=== PATIENT | female | born 1950 | race Caucasian/White ===

== ENCOUNTER → 2016-11-06 | Outpatient (CLI) | payer MEDICARE, OTHER ==
[2016-09-03 08:15] VITALS: BP 163/93
[~2016-11-06] MED LIST: ALPR0.5T PO; AMLO1CAP8 PO; AMLO5TAB2 PO; AMOX500T PO; ARIP5TAB6 PO; ASPI81TA2 PO; ASPI81TA44 PO; ATOR10TA60 PO; ATOR20TA58 PO; BACL20TA PO; CARB200T PO; CETI10TA16 PO; CEVI30CA PO; CIPR250T PO; CIPR250T30 PO; CLON0.25 PO; CLON0.5T PO; CLON1PAT2 TD; CLOP75TA PO; CLOZ100T7 PO; CYCL1DRO OP; DIAZ10TA4 PO; DIAZ5TAB4 PO; DICL100G7 TP; DILT120C97 PO; DILT180C2 PO; DILT180C29 PO; DIVA500T2 PO; DIVA500T9 PO; DOCU-27 PO; DONE5TAB7 PO; DOXE50CA PO; DOXE75CA PO; ESCI20TA PO; FAMO20TA5 PO; FERR325T72 PO; FLUO20CA16 PO; FLUT9.9S NS; FOLI1TAB16 PO; FURO20TA3 PO; GABA-585 PO; GABA-586 PO; GUAI-42 PO; HYDR-2666 PO; HYDR-2762 PO; HYDR-971 PO; LEVO25TA2 PO; LEVO25TA4 PO; LEVO50TA5 PO; LITH300C PO; LORA0.5T PO; LORA2TAB PO; LOSA1TAB17 PO; LOSA50TA6 PO; MELO-150 PO; MEMA10TA PO; METH5TAB12 PO; METO25TA9 PO; MONT10TA6 PO; MULT1TAB52 PO; ONDA-35 PO; ONDA4TAB7 PO; ONDA8TAB12 PO; OXCA300T PO; OXYB5TAB7 PO; OXYC5TAB88 PO; OXYM30SP2 NS; PANT40TA3 PO; PANT40TA5 PO; PHEN16.277 PO; POTA20TA4 PO; POTA20TA82 PO; PROP40TA PO; RISP0.5T18 PO; RIVA20TA2 PO; SUCR1TAB PO; SUCR1TAB29 PO; TEMA30CA PO; TIZA4TAB PO; TOPI50TA4 PO; TRAZ50TA15 PO
[2016-11-06 15:19] LABS: CREATININE 1.1 mg/dL (0.6-1.0)
== END | disposition home or self-care (01) ==
LOC: LAB 14:16
DX: G43.709 Chronic migraine without aura, not intractable, without status migrainosus (principal); G62.9 Polyneuropathy, unspecified
CPT/HCPCS: 36415; 82565; 84520; 85651

== ENCOUNTER → 2016-11-06 | Outpatient (CLI) | payer MEDICARE, OTHER ==
[2016-09-03 08:15] VITALS: BP 163/93
[2016-11-06 15:23] LABS: DIRECT BILIRUBIN 0.2 mg/dL (0.0-0.2); TOTAL BILIRUBIN 0.3 mg/dL (0.2-1.0); TOTAL PROTEIN 7.9 g/dL (6.4-8.2)
== END | disposition home or self-care (01) ==
LOC: LAB 14:21
PROVIDERS: ATTEND Nurse Practitioner
DX: R74.8 Abnormal levels of other serum enzymes (principal)
CPT/HCPCS: 36415; 80076

== ENCOUNTER → 2016-11-19 | Outpatient (CLI) | payer MEDICARE, OTHER ==
[2016-09-03 08:15] VITALS: BP 163/93
[~2016-11-19] MED LIST changes: +ARIP5TAB13 PO; -ARIP5TAB6 PO; +ASPI-630 PO; -ASPI81TA2 PO; +DICL100G18 TP; -DICL100G7 TP; +DILT120C80 PO; -DILT120C97 PO; +DOCU-109 PO; -DOCU-27 PO; +GUAI-107 PO; -GUAI-42 PO; -HYDR-2666 PO; +HYDR-2758 PO; -LEVO25TA2 PO; +LEVO25TA55 PO; -MELO-150 PO; +MELO15TA23 PO; -ONDA-35 PO; +ONDA4TAB11 PO; -OXYM30SP2 NS; +OXYM30SP72 NS; -RISP0.5T18 PO; +RISP0.5T24 PO; -SUCR1TAB29 PO; +SUCR1TAB35 PO; -TOPI50TA4 PO; +TOPI50TA8 PO
--- NOTE | 2016-11-19 11:52 | RAD ---
Indication: Elevated liver and zones. Liver is borderline enlarged at 17.2 cm. No discrete liver mass is identified. The gallbladder is surgically absent. The intrahepatic and hepatic bile ducts are mildly prominent which is likely owing to postcholecystectomy. The spleen and pancreas are unremarkable. Aorta and IVC are unremarkable. The kidneys are unremarkable. No ascites is identified. Impression: Status post cholecystectomy. The study is otherwise unremarkable.
[2016-11-20 03:15] LABS: HCV ANTIBODY <0.1 s/co ratio (0.0-0.9); HEP B SURFACE ABDY Non Reactive (.)
[2016-11-22 08:07] LABS: SMOOTH MUSCLE AB 6 Units (0-19)
[2016-11-23 20:07] LABS: ANA INTERP Negative (.)
== END | disposition home or self-care (01) ==
LOC: US 10:47
PROVIDERS: ATTEND Internal Medicine Gastroenterology
DX: R74.8 Abnormal levels of other serum enzymes (principal); Z90.49 Acquired absence of other specified parts of digestive tract
CPT/HCPCS: 36415; 76700; 82140; 82728; 83520; 83540; 83550; 86255; 86376; 86706; 86803; 83516

== ENCOUNTER 2017-03-14 22:48 | Inpatient (IN) | payer MEDICARE, OTHER ==
[~2017-03-14] VITALS: Ht 160 cm; Wt 70.0 kg
[~2017-03-14 22:48] MED LIST changes: -ESCI20TA PO; +ESCITALOPRAM OX20 MG PO; -GUAI-107 PO; +GUAI-108 PO; +METO-239 PO; -METO25TA9 PO
--- NOTE | 2017-03-14 22:54 | ED.ADGEN ---
Past History Past Medical History: Bipolar, Depression, Migraines, Schizophrenia, Other Past Surgical History: Appendectomy, Cholecystectomy, Colectomy, Hysterectomy Alcohol Use: Occasionally Drug Use: None Adult General Chief Complaint Chief Complaint ".. I am not ..right..." HPI HPI Patient is a 66 year old female who presents with above hx and complaints. Pt. ex- current rn complex care. Pt. reportedly has had gradual mental status change the past 2 to 3 days. Pt. has hx. some psych. hx. and acute mental status changes in past due UTI's. Pt. Hx. hypothryroid, Anxiety, Depression. Pt. reported has not had any trauma, travel or specific ill contacts. Pt. has her med prepackaged so less chance of in appropriate dosage of psych. meds. Packages appear to be opened appropriately on scheduled times. Ex- has been helping get meds as directed. Pt. normally follows with Dr. Saundra Rodriguez. Review of Systems Review of Systems Constitutional: Hx. of fever Eyes: Denies change in visual acuity, redness, or eye pain [] HENT: Denies nasal congestion or sore throat [] Respiratory: Denies cough or shortness of breath [] Cardiovascular: No additional information not addressed in HPI [] GI: Denies abdominal pain, nausea, vomiting, bloody stools or diarrhea [] : Denies dysuria or hematuria [] Musculoskeletal: Denies back pain or joint pain [] Integument: Denies rash or skin lesions [] Neurologic: Denies headache, focal weakness or sensory changes []Recent mental status change, confusion. Endocrine: Denies polyuria or polydipsia [] Family History Family History Non-contributory Current Medications Current Medications Current Medications Medications (Trade) Dose Ordered Sig/Tracy Start Time Stop Time Status Last Admin Dose Admin Ceftriaxone Sodium 1 gm/ Sodium Chloride 50 ml @ 100 mls/hr 1X ONCE 03/15/17 00:15 03/15/17 00:44 DC 03/15/17 00:14 100 MLS/HR Ceftriaxone Sodium (Rocephin) 1 gm STK-MED ONCE 03/15/17 00:04 03/15/17 00:05 DC Lorazepam (Ativan) 1 mg 1X PRN PRN 03/15/17 02:30 Sodium Chloride 50 ml @ As Directed STK-MED ONCE 03/15/17 00:04 03/15/17 00:05 DC See Nursing for home meds. Allergies Allergies Allergies Coded Allergies Type Severity Reaction Last Updated Verified codeine Allergy Intermediate 01/11/16 Yes metoclopramide Allergy Intermediate 08/31/16 Yes morphine Allergy Intermediate Palpitations 08/31/16 Yes losartan Adverse Reaction Intermediate mild pancreatitis 01/07/17 Yes Physical Exam Physical Exam Constitutional: Obvious confusion, not processing questions, very slow to respond, non-toxic appearance. Ex- state this is not her normal baseline. HENT: Normocephalic, atraumatic, bilateral external ears normal, oropharynx moist, no oral exudates, nose normal. [] Eyes: PERRLA, EOMI, conjunctiva normal, no discharge. [] Neck: Normal range of motion, no tenderness, supple, no stridor. [] Cardiovascular: Tachycardia rate regular rhythm, no murmur [] Lungs & Thorax: Bilateral breath sounds with scattered wheezes on auscultation [] Abdomen: Bowel sounds normal, soft, no tenderness, no masses, no pulsatile masses. [] Skin: Warm, dry, no erythema, no rash. Poor turgor. Back: No tenderness, no CVA tenderness. [] Extremities: No tenderness, no cyanosis, no clubbing, ROM intact, no edema. [] Neurologic: Alert and oriented X 2, name and place, , no gross motor function, or sensory function deficits, no gross focal deficits noted. Bilateral tremor. Psychologic: Affect flat, depressed mood. Current Patient Data Vital Signs Vital Signs Date Time Temp Pulse Resp B/P (MAP) Pulse Ox O2 Delivery O2 Flow Rate FiO2 03/15/17 02:02 92 18 151/75 (100) 94 Room Air 03/14/17 22:48 99.2 Lab Results Laboratory Tests Test 03/14/17 23:05 03/14/17 23:10 Urine Collection Type Unknown Urine Color Yellow Urine Clarity Clear Urine pH 7.0 Urine Specific [place] 1.015 Urine Protein Neg (NEG-TRACE) Urine Glucose (UA) Neg mg/dL (NEG) Urine Ketones (Stick) Neg mg/dL (NEG) Urine Blood Small (NEG) Urine Nitrite Neg (NEG) Urine Bilirubin Neg (NEG) Urine Urobilinogen Dipstick 0.2 mg/dL (0.2 mg/dL) Urine Leukocyte Esterase Neg (NEG) Urine RBC 1-2 /HPF (0-2) Urine WBC Occ /HPF (0-4) Urine Squamous Epithelial Cells Few /LPF Urine Bacteria 0 /HPF (0-FEW) Urine Opiates Screen Neg (NEG) Urine Methadone Screen Neg (NEG) Urine Barbiturates Pos (NEG) Urine Phencyclidine Screen Neg (NEG) Urine Amphetamine/Methamphetamine Neg (NEG) Urine Benzodiazepines Screen Pos (NEG) Urine Cocaine Screen Neg (NEG) Urine Cannabinoids Screen Neg (NEG) Urine Ethyl Alcohol Neg (NEG) White Blood Count 13.3 x10^3/uL (4.0-11.0) H Red Blood Count 4.77 x10^6/uL (3.50-5.40) Hemoglobin 14.5 g/dL (12.0-15.5) Hematocrit 44.9 % (36.0-47.0) Mean Corpuscular Volume 94 fL (79-100) Mean Corpuscular Hemoglobin 30 pg (25-35) Mean Corpuscular Hemoglobin Concent 32 g/dL (31-37) Red Cell Distribution Width 13.6 % (11.5-14.5) Platelet Count 299 x10^3/uL (140-400) Neutrophils (%) (Auto) 81 % (31-73) H Lymphocytes (%) (Auto) 13 % (24-48) L Monocytes (%) (Auto) 5 % (0-9) Eosinophils (%) (Auto) 0 % (0-3) Basophils (%) (Auto) 1 % (0-3) Neutrophils # (Auto) 10.8 x10^3uL (1.8-7.7) H Lymphocytes # (Auto) 1.7 x10^3/uL (1.0-4.8) Monocytes # (Auto) 0.7 x10^3/uL (0.0-1.1) Eosinophils # (Auto) 0.0 x10^3/uL (0.0-0.7) Basophils # (Auto) 0.1 x10^3/uL (0.0-0.2) Prothrombin Time 11.9 SEC (9.4-11.4) H Prothrombin Time INR 1.2 (0.9-1.1) H PTT 27 SEC (23-33) Sodium Level 145 mmol/L (136-145) Potassium Level 3.7 mmol/L (3.5-5.1) Chloride Level 106 mmol/L (98-107) Carbon Dioxide Level 27 mmol/L (21-32) Anion Gap 12 (6-14) Blood Urea Nitrogen 14 mg/dL (7-20) Creatinine 1.1 mg/dL (0.6-1.0) H Estimated GFR (Cockcroft-Gault) 50.0 BUN/Creatinine Ratio 13 (6-20) Glucose Level 125 mg/dL (70-99) H Calcium Level 10.4 mg/dL (8.5-10.1) H Magnesium Level 2.2 mg/dL (1.8-2.4) Total Bilirubin 0.6 mg/dL (0.2-1.0) Direct Bilirubin 0.2 mg/dL (0.0-0.2) Aspartate Amino Transferase (AST) 27 U/L (15-37) Alanine Aminotransferase (ALT) 35 U/L (14-59) Alkaline Phosphatase 142 U/L (46-116) H Troponin I Quantitative < 0.017 ng/mL (0-0.055) KL-Nfg-S-Type Natriuretic Peptide 139 pg/mL (0-124) H Total Protein 7.8 g/dL (6.4-8.2) Albumin 4.2 g/dL (3.4-5.0) Albumin/Globulin Ratio 1.2 (1.0-1.7) Ethyl Alcohol Level < 10 mg/dL (0-10) EKG EKG My interpretation EKG shows a sinus at 98 bpm. There is some leftward axis changes. Nonspecific contour changes. No findings acute STEMI this time.[] Radiology/Procedures Radiology/Procedures I interpretation chest x-ray shows an emphysematous type COPD pattern. Some patchy infiltrates. Small cardiac silhouette.[] Course & Med Decision Making Course & Med Decision Making Pertinent Labs and Imaging studies reviewed. (See chart for details) Discussed presentation, testing and treatment plan with Dr. Kim , will admit for further evaluation and treatment. [] Final Impression Final Impression 1. Mental Status Change[] 2. Leukocytosis 3. Diabetes f 4. Dehydration 5. Bronchitis 6. Schizophrenia Problems: Dragon Disclaimer Dragon Disclaimer This electronic medical record was generated, in whole or in part, using a voice recognition dictation system. HELLEN EVANS MD Mar 14, 2017:54
[2017-03-14 23:29] LABS: BASO # 0.1 x10^3/uL (0.0-0.2); BASO % 1 % (0-3); EOS % 0 % (0-3); HEMATOCRIT 44.9 % (36.0-47.0); HEMOGLOBIN 14.5 g/dL (12.0-15.5); LYMPH # 1.7 x10^3/uL (1.0-4.8); LYMPH % 13 % (24-48); MEAN CORPUSCULAR HEMOGLOBIN 30 pg (25-35); MEAN CORPUSCULAR HGB CONC 32 g/dL (31-37); MEAN CORPUSCULAR VOLUME 94 fL (79-100); MONO # 0.7 x10^3/uL (0.0-1.1); MONO % 5 % (0-9); NEUT # 10.8 x10^3uL (1.8-7.7); NEUT % 81 % (31-73); PLATELET COUNT 299 x10^3/uL (140-400); RED BLOOD COUNT 4.77 x10^6/uL (3.50-5.40); RED CELL DISTRIBUTION WIDTH 13.6 % (11.5-14.5); WHITE BLOOD COUNT 13.3 x10^3/uL (4.0-11.0)
[2017-03-14] MEDS ORDERED: IV NORMAL SALINE 1,000ML 1,000 ML IV SCH (23:30)
[2017-03-14 23:35] LABS: BILIRUBIN,URINE NEG (NEG); CLARITY,URINE CLEAR; COLOR,URINE YELLOW; GLUCOSE,URINE NEG (NEG); NITRITE,URINE NEG (NEG); UROBILINOGEN,URINE 0.2 mg/dL (0.2 mg/dL)
[2017-03-14 23:36] LABS: BACTERIA,URINE 0 /HPF (0-FEW); SQUAMOUS EPITHELIAL CELL,UR FEW /LPF; WBC,URINE OCC /HPF (0-4)
[2017-03-14 23:39] LABS: BARBITURATES POS (NEG); BENZODIAZEPINES POS (NEG); CANNABINOIDS NEG (NEG); COCAINE NEG (NEG); METHADONE NEG (NEG); OPIATES NEG (NEG); PHENCYCLIDINE NEG (NEG)
[2017-03-14 23:40] LABS: AMPHETAMINE/METHAMPHETAMINE NEG (NEG)
[2017-03-14 23:50] LABS: ALBUMIN 4.2 g/dL (3.4-5.0); ALBUMIN/GLOBULIN RATIO 1.2 (1.0-1.7); CALCIUM 10.4 mg/dL (8.5-10.1); CREATININE 1.1 mg/dL (0.6-1.0); DIRECT BILIRUBIN 0.2 mg/dL (0.0-0.2); MAGNESIUM 2.2 mg/dL (1.8-2.4); POTASSIUM 3.7 mmol/L (3.5-5.1); TOTAL BILIRUBIN 0.6 mg/dL (0.2-1.0); TOTAL PROTEIN 7.8 g/dL (6.4-8.2)
[2017-03-15] MEDS ORDERED: cefTRIAXone SODIUM 1 GM VIAL IV ONE (00:04)
[2017-03-15] MEDS ORDERED: IV NORMAL SALINE 50ML 50 ML ONE ×2 (00:04→20:23)
--- NOTE | 2017-03-15 00:10 | RAD ---
CT head without contrast: Reason for examination: Change in mental status with confusion. Comparison is made to previous study dated 01/10/2016. Axial images were obtained through the brain. No contrast was administered. Exposure: One or more of the following individualized dose reduction techniques were utilized for this examination: 1. Automated exposure control 2. Adjustment of the mA and/or kV according to patient size 3. Use of iterative reconstruction technique. Ventricular systems are symmetric and not abnormally dilated. No midline shift is seen. There is no evidence of intracranial hemorrhage, infarct, mass or edema. There is some cerebral atrophy which is greater than expected for the patient's age. This however is unchanged. No abnormalities are seen at the orbits. The paranasal sinuses and mastoid air cells are clear. No acute abnormality seen in the skull. IMPRESSION: Mild cerebral atrophy. No acute intracranial abnormality. Electronically signed by: Alessandra Stuart MD (03/15/2017 12:07 AM) [facility]
[2017-03-15] MEDS ORDERED: LORazepam 1 MG TABLET PO PRN (02:30)
[2017-03-15] MEDS ORDERED: ASPIRIN 325 MG TABLET PO ONE (02:45)
[2017-03-15] MEDS ORDERED: LORazepam 1 MG TABLET PO ONE (02:45)
[2017-03-15 03:14] VITALS: BP 136/62
[2017-03-15] MEDS ORDERED: DILT240T8 PO (03:39)
[2017-03-15] MEDS ORDERED: POTA10TA10 PO (03:45)
[2017-03-15] MEDS ORDERED: VORT10TA PO (03:50)
[2017-03-15] MEDS ORDERED: RAME8TAB19 PO (03:52)
[2017-03-15] MEDS ORDERED: LISI1TAB5 PO (03:55)
[2017-03-15 06:02] VITALS: BP 128/79
[2017-03-15] MEDS ORDERED: DONE10TA7 PO (06:31)
[2017-03-15] MEDS ORDERED: DOCU100C20 PO (06:33)
[2017-03-15] MEDS ORDERED: DIAZ5TAB4 PO (06:36)
[2017-03-15] MEDS ORDERED: LITH300T3 PO (06:36)
[2017-03-15] MEDS ORDERED: GABA600T2 PO (06:36)
[2017-03-15] MEDS ORDERED: PANT40TA5 PO (06:36)
--- NOTE | 2017-03-15 06:41 | EKG ---
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
[2017-03-15] MEDS ORDERED: RAMELTEON 8 MG TABLET. PO PRN (07:15)
--- NOTE | 2017-03-15 08:17 | RAD ---
EXAM: CHEST 1 VIEW History: Dyspnea COMPARISON: 08/30/2016 TECHNIQUE: Single portable radiograph of the chest FINDINGS: The cardiac silhouette is unremarkable. The lungs are clear bilaterally. The costophrenic sulci are clear and well demarcated. Anterior cervical fusion hardware identified in the cervical spine region. IMPRESSION: No radiographic evidence of an acute cardiopulmonary process.
[2017-03-15] MEDS: PANTOPRAZOLE 40 MG TABLET. PO SCH ×2 (08:52→20:29)
[2017-03-15] MEDS: GABAPENTIN 300 MG CAPSULE. PO SCH ×2 (08:52→13:38)
[2017-03-15] MEDS: LISINOPRIL 20 MG TABLET PO SCH (08:52)
[2017-03-15] MEDS: hydroCHLOROthiazide 12.5 MG CAPSULE PO SCH (08:52)
[2017-03-15] MEDS: ASPIRIN 325 MG TABLET PO SCH (08:52)
[2017-03-15] MEDS: POTASSIUM CHLORIDE 10 MEQ TABLET.ER. PO SCH (08:52)
[2017-03-15] MEDS: LITHIUM CARBONATE 300 MG TABLET PO SCH ×2 (08:53→20:30)
[2017-03-15] MEDS: DOCUSATE SODIUM 100 MG CAPSULE PO SCH ×3 (08:53→20:44)
[2017-03-15] MEDS: NON FORMULARY ITEM (Vortioxetine Hydrobromide (Trintellix) 10 MG) PO SCH (08:53)
[2017-03-15 10:47] VITALS: BP 148/67
[2017-03-15 16:47] VITALS: BP 135/60
[2017-03-15] MEDS: RIVAROXABAN 10 MG TABLET. PO SCH (17:10)
--- NOTE | 2017-03-15 17:59 | HP ---
ADMIT DATE: 03/15/2017 HISTORY OF PRESENT ILLNESS: The patient is a 66-year-old female patient, who was brought to the Emergency Room by her ex-, who is her caregiver, with altered mental status. She is very lethargic, but arousable. She has extremely delayed reaction, having difficulty expressing herself, stated that her medication are messed up, some of them according to her caused her pain and would like them to be changed, but she could not be more specific. She was basically admitted for further evaluation and to consult Dr. Brown. She was extensively investigated in the Emergency Room and her CT scan of the head was basically unremarkable. Her labs showed she has mild leukocytosis. Her calcium was slightly elevated, but corrected. Her albumin is normal. Her urinalysis was essentially unremarkable and her urine toxicology was positive only for barbiturates and benzodiazepine. She was started empirically on IV antibiotic in the form of ceftriaxone by the ER physician. I did continue all her medication except her Valium. She is clearly very lethargic and encephalopathic. PAST MEDICAL HISTORY: Significant for fibromyalgia, neuropathy, paroxysmal atrial fibrillation, tachybrady syndrome, anxiety, lacunar infarct, gastritis, hyperthyroidism, chronic pain syndrome. She had history of left leg fracture and had previous history of oversedation and also polypharmacy. Past psychiatric history included. She has history of bipolar disorder, schizoaffective disorder with basically increased confusion and altered mental status. PAST SURGICAL HISTORY: Significant for cholecystectomy, hysterectomy, left leg fracture, status post open reduction and internal fixation. SOCIAL HISTORY: She is an ex-smoker, does not smoke anymore, does not drink alcohol. She currently lives with her ex-. ALLERGIES: She is allergic to CODEINE, METOCLOPRAMIDE and MORPHINE. MEDICATIONS: She is currently on following medications: Atorvastatin calcium 20 mg at bedtime, diazepam 5 mg 3 times a day p.r.n., diltiazem 240 mg once a day, Colace 100 mg twice a day, Aricept 10 mg at bedtime, gabapentin 600 mg 3 times a day, levothyroxine sodium 25 mcg once a day, lisinopril/hydrochlorothiazide 20/12.5 mg 1 tablet once a day, lithium carbonate 300 mg twice a day, Singulair 10 mg at bedtime, Protonix 40 mg twice a day, Rozerem 8 mg at bedtime, rivaroxaban 20 mg daily, ____ 10 mg daily. PHYSICAL EXAMINATION: GENERAL: On arrival to the Emergency Room, the patient was slightly pale, but not jaundiced, cyanosis, or thyromegaly. No jugular venous distension. No limb edema. VITAL SIGNS: Her heart rate was 114, blood pressure 142/72, temperature was 99.2, respiratory rate 20, and oxygen saturation was 94% on room air. HEAD, EYES, EARS, NOSE, AND THROAT: Showed normocephalic, atraumatic. NECK: Supple. HEART: Showed normal first and second heart sounds with no gallop, rub or murmur. CHEST: Clear to auscultation. No crepitation or rhonchi. ABDOMEN: Distended, soft, nontender. No guarding or rigidity. No organomegaly. All hernial orifices intact. Bowel sounds normal. NEUROLOGIC: She was very lethargic, but arousable. She does open her eyes, tracks occasionally; however, she very delayed reaction, unable to find words, although grossly all her cranial nerves are intact. EXTREMITIES: She moves extremities without difficulty. She normally is able to ambulate without assistance or assistive devices. LABORATORY DATA: While in the Emergency Room, her white cell count was slightly elevated at 13,300, hemoglobin 14.5, hematocrit 44.9, MCV 94 and platelet count 299,000 with manual differential showed 81% polymorphs, 15% lymphocytes and 5% monocytes. Her prothrombin time was 11.9, INR 1.2, APTT was 27. Her chemistry showed serum sodium of 145, potassium 3.7, chloride 106, bicarbonate 27, anion gap of 12, BUN 14, creatinine 1.1, estimated GFR was 50 mL per minute. Her glucose was 125, calcium was 7.4, magnesium 2.2. Total bilirubin, AST, ALT, alkaline phosphatase were normal. Her beta natriuretic peptide was 139. Total protein was 7.8, albumin 4.2. Urinalysis showed the urine was yellow, clear with a pH of 7, specific gravity 1.015. The urine was negative for protein, glucose, ketones, and small amount of blood. Negative for nitrite and leukocyte esterase. There were 1-2 rbc's, occasional wbc's, no bacteria. Her urine toxicology screen was positive for barbiturates as well as benzodiazepine, but negative for all other medication. Her chest x-ray showed that the cardiac silhouette is unremarkable. The lungs are clear, bilaterally the costophrenic angles are clear and well demarcated, anterior cervical fusion hardware identified in cervical spine region. The CT scan of the head showed that her ventricular system is asymmetric and not abnormally dilated. No midline shift is seen. There is no evidence of intracranial hemorrhage, infarct, mass or edema. There is some cerebral atrophy, which is greater than expected for the patient's age, this; however, is unchanged. No abnormalities seen in the orbits. The paranasal sinuses and mastoid air cells are clear. No acute abnormalities seen in the skull with the impression that the patient has mild cerebral atrophy, no acute intracranial abnormality. ASSESSMENT AND PLAN: The patient was admitted with altered mental status. I held her diazepam. Continue with all other medications. We will consult Dr. Brown and decide on further management accordingly. I am wondering whether other medication needs to be discontinued including her gabapentin that might be contributing to her and also the lorazepam as well as Rozerem. KRISTOFER NAJERA MD DR: CASSANDRA/fernando JOB#: [id number] / [id number]
[2017-03-15 19:09] VITALS: BP 159/64
[2017-03-15] MEDS: MONTELUKAST 10 MG TABLET. PO SCH (20:32)
[2017-03-15] MEDS: ATORVASTATIN CALCIUM 20 MG TABLET PO SCH (20:32)
[2017-03-15] MEDS ORDERED: DONEPEZIL HCL 10 MG TABLET PO SCH (21:00)
[2017-03-15] MEDS: traZODone 50 MG TABLET. PO PRN (21:41)
[2017-03-15 22:44] VITALS: BP 121/58
[2017-03-16] MEDS: traZODone 50 MG TABLET. PO PRN (00:41)
--- NOTE | 2017-03-16 01:30 | PN ---
DATE: 03/15/2017 SUBJECTIVE: The patient is resting slightly propped up in bed, in no apparent distress. She continued to be very lethargic, but arousable, is unable to express herself. I did hold her diazepam and in fact even went ahead and discontinued her Neurontin and Rozerem. Her urine toxicology was positive for barbiturates and none of these medication gave positive reaction to barbiturates. I did contact the lab and asked them to send the sample for confirmation. Again, when I examined her today, she was unable to give us any useful information. PHYSICAL EXAMINATION: GENERAL: When examining her, she was lethargic, but arousable. She was pale, no jaundice, cyanosis or thyromegaly. No jugular venous distention. No limb edema. VITAL SIGNS: Her heart rate was 93, blood pressure 148/67, temperature was 98.5, respiratory rate 20, and oxygen saturation was 96%. The rest of clinical examination is unremarkable. She continued to be very lethargic and encephalopathic, although she opens her eyes with difficulty and has very difficult time expressing herself for finding the right words. Her CT scan was unremarkable. Her lab work showed mild leukocytosis, but no metabolic abnormality to explain her encephalopathy. I did discontinue her diazepam, Neurontin, and Rozerem. We will repeat all her lab works again tomorrow. We have consulted Dr. Brown to assist with her management. KRISTOFER NAJERA MD DR: CASSANDRA/fernando JOB#: [id number] / [id number]
[2017-03-16 05:31] VITALS: BP 120/80
[2017-03-16] MEDS: LEVOTHYROXINE 25 MCG TABLET. PO SCH (06:12)
[2017-03-16] MEDS: LITHIUM CARBONATE 300 MG TABLET PO SCH ×3 (08:00→20:36)
[2017-03-16] MEDS: POTASSIUM CHLORIDE 10 MEQ TABLET.ER. PO SCH ×2 (08:00→08:49)
[2017-03-16] MEDS: LISINOPRIL 20 MG TABLET PO SCH ×2 (08:47→09:00)
[2017-03-16] MEDS: PANTOPRAZOLE 40 MG TABLET. PO SCH ×3 (08:48→20:35)
[2017-03-16] MEDS: hydroCHLOROthiazide 12.5 MG CAPSULE PO SCH ×2 (08:50→09:00)
[2017-03-16] MEDS: ASPIRIN 325 MG TABLET PO SCH ×2 (08:51→09:00)
[2017-03-16] MEDS: DOCUSATE SODIUM 100 MG CAPSULE PO SCH ×2 (09:00→20:35)
[2017-03-16] MEDS: NON FORMULARY ITEM (Vortioxetine Hydrobromide (Trintellix) 10 MG) PO SCH (09:00)
[2017-03-16 10:59] LABS: HEMATOCRIT 42.3 % (36.0-47.0); RED BLOOD COUNT 4.57 x10^6/uL (3.50-5.40); RED CELL DISTRIBUTION WIDTH 13.4 % (11.5-14.5); WHITE BLOOD COUNT 11.4 x10^3/uL (4.0-11.0)
[2017-03-16 11:01] VITALS: BP 107/70
[2017-03-16 11:10] LABS: ALBUMIN 3.5 g/dL (3.4-5.0); CALCIUM 9.4 mg/dL (8.5-10.1); CREATININE 0.9 mg/dL (0.6-1.0); POTASSIUM 3.4 mmol/L (3.5-5.1); TOTAL BILIRUBIN 0.5 mg/dL (0.2-1.0); TOTAL PROTEIN 6.9 g/dL (6.4-8.2)
[2017-03-16 15:33] VITALS: BP 95/52
--- NOTE | 2017-03-16 18:00 | PDOC ---
Exam Dixon Demential Exam: Dixon Note: Please also refer to the separate dictated note~for this date of service dictated separately.~Patient seen individually. Discussed the patient with Nursing staff reviewed the chart.~Reviewed interim history and current functioning. Reviewed vital signs,~Labs/ Radiology~and current medications noted below. Continue current treatment with the changes noted in the dictated addendum note Assessment: Vital Signs: Vital Signs Date Time Temp Pulse Resp B/P (MAP) Pulse Ox O2 Delivery O2 Flow Rate FiO2 03/16/17 15:33 98.4 84 16 95/52 (66) 98 Room Air Labs: Laboratory Tests Test 03/16/17 10:45 White Blood Count 11.4 x10^3/uL (4.0-11.0) H Red Blood Count 4.57 x10^6/uL (3.50-5.40) Hemoglobin 14.0 g/dL (12.0-15.5) Hematocrit 42.3 % (36.0-47.0) Mean Corpuscular Volume 93 fL (79-100) Mean Corpuscular Hemoglobin 31 pg (25-35) Mean Corpuscular Hemoglobin Concent 33 g/dL (31-37) Red Cell Distribution Width 13.4 % (11.5-14.5) Platelet Count 272 x10^3/uL (140-400) Sodium Level 142 mmol/L (136-145) Potassium Level 3.4 mmol/L (3.5-5.1) L Chloride Level 106 mmol/L (98-107) Carbon Dioxide Level 26 mmol/L (21-32) Anion Gap 10 (6-14) Blood Urea Nitrogen 9 mg/dL (7-20) Creatinine 0.9 mg/dL (0.6-1.0) Estimated GFR (Cockcroft-Gault) 63.0 BUN/Creatinine Ratio 10 (6-20) Glucose Level 131 mg/dL (70-99) H Calcium Level 9.4 mg/dL (8.5-10.1) Total Bilirubin 0.5 mg/dL (0.2-1.0) Aspartate Amino Transferase (AST) 29 U/L (15-37) Alanine Aminotransferase (ALT) 37 U/L (14-59) Alkaline Phosphatase 132 U/L (46-116) H Total Protein 6.9 g/dL (6.4-8.2) Albumin 3.5 g/dL (3.4-5.0) Albumin/Globulin Ratio 1.0 (1.0-1.7) Current Medications: Meds: Current Medications Sodium Chloride 1,000 ml @ 100 mls/hr Q10H IV Last administered on 03/14/17 23 :32; Start 03/14/17 at 23:30; Stop 03/15/17 at 09:30; Status DC Ceftriaxone Sodium 1 gm/ Sodium Chloride 50 ml @ 100 mls/hr 1X ONCE IV Last administered on 03/15/17 00:14; Start 03/15/17 at 00:15; Stop 03/15/17 at 00:44; Status DC Sodium Chloride 50 ml @ As Directed STK-MED ONCE .ROUTE ; Start 03/15/17 at 00:04 ; Stop 03/15/17 at 00:05; Status DC Ceftriaxone Sodium (Rocephin) 1 gm STK-MED ONCE IV ; Start 03/15/17 at 00:04; Stop 03/15/17 at 00:05; Status DC Ceftriaxone Sodium 1 gm/ Sodium Chloride 50 ml @ 100 mls/hr QHS IV Last administered on 03/15/17 20:29; Start 03/15/17 at 21:00 Aspirin (Jayant Aspirin) 325 mg DAILY PO Last administered on 03/16/17 09:00; Start 03/15/17 at 09:00 Lorazepam (Ativan) 1 mg 1X PRN PRN PO Agitation Last administered on 03/15/17 08:51; Start 03/15/17 at 02:30; Stop 03/15/17 at 13:49; Status DC Lorazepam (Ativan) 1 mg 1X ONCE PO Last administered on 03/15/17 02:45; Start 03/15/17 at 02:45; Stop 03/15/17 at 13:49; Status DC Aspirin (Jayant Aspirin) 325 mg 1X ONCE PO Last administered on 03/15/17 02:45 ; Start 03/15/17 at 02:45; Stop 03/15/17 at 02:46; Status DC Atorvastatin Calcium (Lipitor) 20 mg QHS PO Last administered on 03/15/17 20:32 ; Start 03/15/17 at 21:00 Docusate Sodium (Colace) 100 mg BID PO ; Start 03/15/17 at 09:00 Donepezil HCl (Aricept) 10 mg HS PO ; Start 03/15/17 at 21:00; Stop 03/15/17 at 21 :00; Status DC Levothyroxine Sodium (Synthroid) 25 mcg DAILY07 PO Last administered on 06:12; Start 03/16/17 at 07:00 Montelukast Sodium (Singulair) 10 mg HS PO Last administered on 03/15/17 20:32 ; Start 03/15/17 at 21:00 Pantoprazole Sodium (Protonix) 40 mg BID PO Last administered on 03/16/17 09:00 ; Start 03/15/17 at 09:00 Ramelteon (Rozerem) 8 mg PRN QHS PRN PO INSOMNIA; Start 03/15/17 at 07:15; Stop 03/15/17 at 13:49; Status DC Diltiazem HCl (Cardizem 24hr Cd) 240 mg DAILY PO Last administered on 03/16/17 09:00; Start 03/15/17 at 09:00 Gabapentin (Neurontin) 600 mg TID PO Last administered on 03/15/17 08:52; Start 03/15/17 at 09:00; Stop 03/15/17 at 13:49; Status DC Lisinopril (Prinivil) 20 mg DAILY PO Last administered on 03/16/17 09:00; Start 03/15/17 at 09:00 [place] Carbonate 300 mg BID PO Last administered on 03/16/17 08:00; Start 03/15 at 09:00 Potassium Chloride (Klor-Con) 10 meq DAILYWBKFT PO Last administered on 08:00; Start 03/15/17 at 08:00 Rivaroxaban (Xarelto) 20 mg DAILYWSUP PO Last administered on 03/15/17 17:10; Start 03/15/17 at 17:00 Non-Formulary Medication 10 mg DAILY PO ; Start 03/15/17 at 09:00; Status UNV Hydrochlorothiazide (Microzide) 12.5 mg DAILY PO Last administered on 03/16/17 09:00; Start 03/15/17 at 09:00 Sodium Chloride 50 ml @ As Directed STK-MED ONCE .ROUTE Last administered on 20:40; Start 03/15/17 at 20:23; Stop 03/15/17 at 20:24; Status DC Trazodone HCl (Desyrel) 50 mg PRN QHS PRN PO INSOMNIA, MAY REPEAT X1 Last administered on 03/16/17 00:41; Start 03/15/17 at 20:45 Active Scripts Active Xarelto (Rivaroxaban) 20 Mg Tablet 20 Mg PO DAILYWSUP Reported Gabapentin 600 Mg Tablet 600 Mg PO TID [place] Carbonate 300 Mg Tablet 300 Mg PO BID Pantoprazole Sodium 40 Mg Tablet.dr 40 Mg PO BID Doc-Q-Lace (Docusate Sodium) 100 Mg Capsule 100 Mg PO BID Donepezil Hcl 10 Mg Tablet 10 Mg PO HS Lisinopril-Hctz 20-12.5 Mg Tab (Lisinopril/Hydrochlorothiazide) 1 Each Tablet 1 Tab PO DAILY Rozerem (Ramelteon) 8 Mg Tablet 8 Mg PO HS PRN Trintellix (Vortioxetine Hydrobromide) 10 Mg Tablet 10 Mg PO DAILY Potassium Chloride 10 Meq Tablet.er 10 Meq PO DAILYWBKFT Diltiazem 24Hr ER (Diltiazem HCl) 240 Mg Tab.er.24h 240 Mg PO DAILY Atorvastatin Calcium 20 Mg Tablet 20 Mg PO QHS NOT GIVEN IN THE HOSPITAL NEXT DOSE DUE: DATE: RESTART TODAY TIME: AT BEDTIME Levothyroxine Sodium 25 Mcg Tablet 1 Tab PO DAILY07 LAST DOSE GIVEN: DATE:TODAY TIME: BEFORE BREAKFAST NEXT DOSE DUE: DATE: TOMORROW TIME: BEFORE BREAKFAST Singulair Tablet (Montelukast Sodium) 10 Mg Tablet 10 Mg PO HS NOT GIVEN IN HOSPITAL NEXT DOSE DUE: DATE: RESTART TODAY TIME: AT BEDTIME Diagnosis: Problems: (1) Bipolar affective disorder (2) Delusional disorder (3) Mental status change EULALIA NANCE MD Mar 16, 2017 18:00
[2017-03-16 19:33] VITALS: BP 127/82
[2017-03-16] MEDS: RIVAROXABAN 10 MG TABLET. PO SCH (19:46)
[2017-03-16] MEDS: ATORVASTATIN CALCIUM 20 MG TABLET PO SCH (20:34)
[2017-03-16] MEDS: MONTELUKAST 10 MG TABLET. PO SCH (20:34)
[2017-03-16] MEDS ORDERED: risperiDONE 0.5 MG TABLET. PO SCH (21:00)
--- NOTE | 2017-03-16 23:56 | PN ---
DATE: 03/16/2017 PROBLEMS: 1. Altered mental status, questionable etiology. 2. Polypharmacy. 3. Fall risk. 4. Fibromyalgia. 5. Paroxysmal atrial fibrillation. 6. Gastritis. 7. History of lacunar infarct. 8. Right ankle fracture. 9. Polypharmacy. 10. History of over sedation. 11. Bipolar disorder and schizoaffective disorder. SUBJECTIVE: Resume care of this 66-year-old female who I have been taking care before, but resumed care from Dr. Kim who saw her yesterday. Ex- is in the room with her, but difficult to get a history of what exactly has been going on. reports that she has been very lethargic and talking about lying all the time and kind of ruminating on that. She has been on this medication "Trintellix" has been on for 3 months. She only takes Valium as needed. We had an accurate medication list from the general pharmacy from the [facility]. She also had a stay [facility] the [facility]. The ex- does not feel like this was quite was helpful in the past and is not particularly interested in her going up there, but today she keep stating if I swallow the pills they will keep me here I cannot live. The patient does deny any urinary type of symptoms, shortness of breath, cold symptoms, fever. OBJECTIVE: VITAL SIGNS: Blood pressure is 120/80, pulse 78, temperature 98.4, pulse ox 96% on room air. GENERAL: The patient is quite groggy, but awake. She is restless. HEENT: Her tongue was moist. NECK: Supple. LUNGS: Clear. CARDIOVASCULAR: Regular rhythm and rate without murmur. ABDOMEN: Mildly protuberant, nontender. EXTREMITIES: Without edema. She does have some hardware in the right ankle. 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 She does have a mild tremor. LABORATORY DATA: White blood cell count down to 11.4 from 13.3. Chemistry: Potassium slightly low at 3.4. MENTAL STATE: The patient is somewhat confused talking about if she swallows it she will have to stay here. She does not admit to being depressed, but obviously is quite depressed in her mood and demeanor also somewhat anxious. Noted that the interaction between her and her ex- is a lot better than I have ever seen it he is not getting mad at her like he normally does. ASSESSMENT: As above plus hypokalemia and leukocytosis without evidence of infection. PLAN: Holding any sedative medications. Await Dr. Brown's evaluation, and I do not feel patient is fit to go home at the present time in the condition she is in. SHALOM RUIZ DO DR: JACKSON/fernando JOB#: [id number] / [id number]
--- NOTE | 2017-03-17 01:01 | CONS ---
DATE OF CONSULTATION: 03/15/2017 PSYCHIATRIC CONSULTATION This is a late entry for 03/15/2017 and covers elements not covered in my initial note of 03/15/2017. IDENTIFYING DATA: The patient is a 66-year-old female seen in bed 124, 1 [facility] for a psychiatric consult requested by Dr. Kim on account of the patient's bipolar disorder, change in mental status, increased confusion, irritability, mood lability within the context of her diagnosis of bipolar disorder. The patient is seen individually, discussed with nursing staff, reviewed the chart. I met with her evening of 03/15/2017. CHIEF COMPLAINT: "Dr. Rodriguez started Trintellix 10 mg a day. I was depressed, but now I am not right. My mind is going fast, I can't sleep." HISTORY OF PRESENT ILLNESS: The patient has a history of bipolar disorder. Her ex- is a health and wellness manager and has noticed a significant change in her mental status, confusion, agitation over the past 2-3 days. In the past, she has had similar mental status changes consequent to urinary tract infection. Reportedly, there is no history of trauma or other infectious process. No active suicidal or homicidal ideation. She has been somewhat anxious, labile, intermittently psychotic, in addition to the worsening confusion. PAST PSYCHIATRIC HISTORY: Positive for bipolar disorder, followed at the [facility]. PAST MEDICAL HISTORY: Migraines. PAST SURGICAL HISTORY: Appendectomy, cholecystectomy, colectomy, hysterectomy. Alcohol use, occasional. Drug use, none. CURRENT PSYCHOTROPICS: [place] carbonate 300 mg twice a day, Trintellix 10 mg a day, Aricept 10 mg a day, Rozerem 8 mg at bedtime. She is also on Lipitor 20 mg a day and Synthroid. ALLERGIES: Codeine, metoclopramide, morphine, losartan. FAMILY HISTORY: Noncontributory. SOCIAL HISTORY: Social alcohol usage. Her ex- helps take care of her. No known drug abuse history noted. MENTAL STATUS EXAMINATION: The patient was seen individually on the evening of 03/15/2017. She is oriented to herself and situation. She is quite irritable, labile in her mood, paranoid, suspicious. Attention span short. Language function intact. Intellect average. Insight good. Judgment intact to standard questioning. No active suicidal or homicidal ideation. VITAL SIGNS: Pulse 92, respirations 18, BP 161/75, and O2 sat is 94% on room air. REVIEW OF SYSTEMS: No CV, , pulmonary, eye, ENT system symptoms on review. Complains of being confused. IMPRESSION: Bipolar 1 disorder, mixed with a history of psychotic features; anxiety disorder, unspecified; impulse control disorder, unspecified. Rest diagnoses as above. PLAN: From a psychiatric standpoint, the patient has not taken Aricept for the past several weeks. She has had some mild cognitive impairment, but probably will leave in the context of her mood disorder and we will stop the Aricept for now. Given some of her mood lability, mixed bipolar episode presentation, we will stop that Trintellix. Continue lithium carbonate 300 mg b.i.d. Check CBC, CMP, lithium level to adjust to reach a therapeutic level. Can discontinue the Rozerem and start trazodone 50 mg at bedtime p.r.n., may repeat x [address] Kim, thank you for the opportunity to participate in your patient's care. We will follow up with you. Once the patient is medically stable, we may consider transferring her to the psychiatric unit if her mental status does not stabilize before then. MAN Chantell NANCE MD DR: ELLIS/fernando JOB#: [id number] / [id number]
[2017-03-17] MEDS: LEVOTHYROXINE 25 MCG TABLET. PO SCH (04:52)
--- NOTE | 2017-03-17 06:53 | PN ---
DATE: 03/16/2017 SUBJECTIVE: The patient seen individually the evening of 03/16/2017. I have discussed with nursing staff, reviewed the chart. I met with the patient's ex- who was visiting with. Per nursing report, the patient did not sleep very well last night and we will increase her trazodone to 100 mg at bedtime p.r.n., november repeat x 1. She has also been quite paranoid, psychotic, suspicious; at times, not verbally interactive or responding, preoccupied with her own thought patterns and psychosis. No active suicidal or homicidal ideation. REVIEW OF SYSTEMS: Ambulation impaired. No CV, , pulmonary, eye system symptoms on review. MENTAL STATUS EXAMINATION: Reasonably oriented, speech moderate latency, often responses monosyllabic. Abstraction fair, computation impaired, language function intact. She is quite paranoid, suspicious, delusional, refuses to go up to the [facility] once she is medically stable. She rather returned to outpatient followup at the [facility]. LABORATORY DATA: Reviewed. This note covers elements not covered in my initial note of 03/16/2017. IMPRESSION: Bipolar 1 disorder, mixed with psychotic features; anxiety disorder, unspecified. PLAN: [place] level , maintain lithium carbonate 300 mg twice a day, increase the trazodone as noted above, start Risperdal 0.5 mg p.o. at bedtime. Make further adjustments as clinically indicated. MAN Chantell NANCE MD DR: ELLIS/fernando JOB#: [id number] / [id number]
[2017-03-17 08:45] VITALS: BP 140/76
[2017-03-17] MEDS: LITHIUM CARBONATE 300 MG TABLET PO SCH ×2 (09:00→18:31)
[2017-03-17] MEDS: NON FORMULARY ITEM (Vortioxetine Hydrobromide (Trintellix) 10 MG) PO SCH (09:00)
[2017-03-17] MEDS: POTASSIUM CHLORIDE 10 MEQ TABLET.ER. PO SCH (09:00)
[2017-03-17] MEDS: ASPIRIN 325 MG TABLET PO SCH (09:00)
[2017-03-17] MEDS: DOCUSATE SODIUM 100 MG CAPSULE PO SCH ×2 (09:01→20:15)
[2017-03-17] MEDS: LISINOPRIL 20 MG TABLET PO SCH (09:01)
[2017-03-17] MEDS: PANTOPRAZOLE 40 MG TABLET. PO SCH ×2 (09:01→20:15)
[2017-03-17] MEDS: hydroCHLOROthiazide 12.5 MG CAPSULE PO SCH (09:01)
[2017-03-17 11:00] VITALS: BP 121/78
[2017-03-17 14:35] LABS: LI 0.6 mmol/L (0.6-1.2)
[2017-03-17] MEDS: RIVAROXABAN 10 MG TABLET. PO SCH (17:32)
[2017-03-17 18:24] VITALS: BP 135/85
--- NOTE | 2017-03-17 19:04 | PDOC ---
Exam Dixon Demential Exam: Dixon Note: Please also refer to the separate dictated note~for this date of service dictated separately.~Patient seen individually. Discussed the patient with Nursing staff reviewed the chart.~Reviewed interim history and current functioning. Reviewed vital signs,~Labs/ Radiology~and current medications noted below. Continue current treatment with the changes noted in the dictated addendum note Assessment: Vital Signs: Vital Signs Date Time Temp Pulse Resp B/P (MAP) Pulse Ox O2 Delivery O2 Flow Rate FiO2 03/17/17 18:24 98.8 135 20 135/85 (102) 96 Room Air I&O Intake and Output 03/18/17 07:00 Intake Total 250 ml Balance 250 ml Intake Oral 250 ml Current Medications: Meds: Current Medications Sodium Chloride 1,000 ml @ 100 mls/hr Q10H IV Last administered on 03/14/17 23 :32; Start 03/14/17 at 23:30; Stop 03/15/17 at 09:30; Status DC Ceftriaxone Sodium 1 gm/ Sodium Chloride 50 ml @ 100 mls/hr 1X ONCE IV Last administered on 03/15/17 00:14; Start 03/15/17 at 00:15; Stop 03/15/17 at 00:44; Status DC Sodium Chloride 50 ml @ As Directed STK-MED ONCE .ROUTE ; Start 03/15/17 at 00:04 ; Stop 03/15/17 at 00:05; Status DC Ceftriaxone Sodium (Rocephin) 1 gm STK-MED ONCE IV ; Start 03/15/17 at 00:04; Stop 03/15/17 at 00:05; Status DC Ceftriaxone Sodium 1 gm/ Sodium Chloride 50 ml @ 100 mls/hr QHS IV Last administered on 03/16/17 20:34; Start 03/15/17 at 21:00; Stop 03/17/17 at 10:20; Status DC Aspirin (Jayant Aspirin) 325 mg DAILY PO Last administered on 03/16/17 09:00; Start 03/15/17 at 09:00; Stop 03/17/17 at 10:18; Status DC Lorazepam (Ativan) 1 mg 1X PRN PRN PO Agitation Last administered on 03/15/17 08:51; Start 03/15/17 at 02:30; Stop 03/15/17 at 13:49; Status DC Lorazepam (Ativan) 1 mg 1X ONCE PO Last administered on 03/15/17 02:45; Start 03/15/17 at 02:45; Stop 03/15/17 at 13:49; Status DC Aspirin (Jayant Aspirin) 325 mg 1X ONCE PO Last administered on 03/15/17 02:45 ; Start 03/15/17 at 02:45; Stop 03/15/17 at 02:46; Status DC Atorvastatin Calcium (Lipitor) 20 mg QHS PO Last administered on 03/16/17 20:34 ; Start 03/15/17 at 21:00 Docusate Sodium (Colace) 100 mg BID PO Last administered on 03/17/17 09:01; Start 03/15/17 at 09:00 Donepezil HCl (Aricept) 10 mg HS PO ; Start 03/15/17 at 21:00; Stop 03/15/17 at 21 :00; Status DC Levothyroxine Sodium (Synthroid) 25 mcg DAILY07 PO Last administered on 04:52; Start 03/16/17 at 07:00 Montelukast Sodium (Singulair) 10 mg HS PO Last administered on 03/16/17 20:34 ; Start 03/15/17 at 21:00 Pantoprazole Sodium (Protonix) 40 mg BID PO Last administered on 03/17/17 09:01 ; Start 03/15/17 at 09:00 Ramelteon (Rozerem) 8 mg PRN QHS PRN PO INSOMNIA; Start 03/15/17 at 07:15; Stop 03/15/17 at 13:49; Status DC Diltiazem HCl (Cardizem 24hr Cd) 240 mg DAILY PO Last administered on 03/17/17 09:01; Start 03/15/17 at 09:00 Gabapentin (Neurontin) 600 mg TID PO Last administered on 03/15/17 08:52; Start 03/15/17 at 09:00; Stop 03/15/17 at 13:49; Status DC Lisinopril (Prinivil) 20 mg DAILY PO Last administered on 03/17/17 09:01; Start 03/15/17 at 09:00 [place] Carbonate 300 mg BID PO Last administered on 03/17/17 18:31; Start 03/15 at 09:00 Potassium Chloride (Klor-Con) 10 meq DAILYWBKFT PO Last administered on 09:00; Start 03/15/17 at 08:00 Rivaroxaban (Xarelto) 20 mg DAILYWSUP PO Last administered on 03/17/17 17:32; Start 03/15/17 at 17:00 Non-Formulary Medication 10 mg DAILY PO ; Start 03/15/17 at 09:00; Stop 03/17/17 at 10:19; Status DC Hydrochlorothiazide (Microzide) 12.5 mg DAILY PO Last administered on 03/17/17 09:01; Start 03/15/17 at 09:00 Sodium Chloride 50 ml @ As Directed STK-MED ONCE .ROUTE Last administered on 20:40; Start 03/15/17 at 20:23; Stop 03/15/17 at 20:24; Status DC Trazodone HCl (Desyrel) 50 mg PRN QHS PRN PO INSOMNIA, MAY REPEAT X1 Last administered on 03/16/17 00:41; Start 03/15/17 at 20:45; Stop 03/16/17 at 20:19; Status DC Trazodone HCl (Desyrel) 100 mg PRN QHS PRN PO INSOMNIA, MAY REPEAT X1; Start at 20:30 Risperidone (RisperDAL) 0.5 mg QHS PO Last administered on 03/16/17 20:35; Start 03/16/17 at 21:00 Active Scripts Active Xarelto (Rivaroxaban) 20 Mg Tablet 20 Mg PO DAILYWSUP Reported Gabapentin 600 Mg Tablet 600 Mg PO TID [place] Carbonate 300 Mg Tablet 300 Mg PO BID Pantoprazole Sodium 40 Mg Tablet.dr 40 Mg PO BID Doc-Q-Lace (Docusate Sodium) 100 Mg Capsule 100 Mg PO BID Donepezil Hcl 10 Mg Tablet 10 Mg PO HS Lisinopril-Hctz 20-12.5 Mg Tab (Lisinopril/Hydrochlorothiazide) 1 Each Tablet 1 Tab PO DAILY Rozerem (Ramelteon) 8 Mg Tablet 8 Mg PO HS PRN Trintellix (Vortioxetine Hydrobromide) 10 Mg Tablet 10 Mg PO DAILY Potassium Chloride 10 Meq Tablet.er 10 Meq PO DAILYWBKFT Diltiazem 24Hr ER (Diltiazem HCl) 240 Mg Tab.er.24h 240 Mg PO DAILY Atorvastatin Calcium 20 Mg Tablet 20 Mg PO QHS NOT GIVEN IN THE HOSPITAL NEXT DOSE DUE: DATE: RESTART TODAY TIME: AT BEDTIME Levothyroxine Sodium 25 Mcg Tablet 1 Tab PO DAILY07 LAST DOSE GIVEN: DATE:TODAY TIME: BEFORE BREAKFAST NEXT DOSE DUE: DATE: TOMORROW TIME: BEFORE BREAKFAST Singulair Tablet (Montelukast Sodium) 10 Mg Tablet 10 Mg PO HS NOT GIVEN IN HOSPITAL NEXT DOSE DUE: DATE: RESTART TODAY TIME: AT BEDTIME Diagnosis: Problems: (1) Bipolar affective, mixed, sev w/ psych (2) Anxiety disorder (3) Dementia, vascular, with depression (4) Dementia, vascular, with delusions EULALIA NANCE MD Mar 17, 2017 19:04
--- NOTE | 2017-03-17 19:48 | PDOC ---
Exam Dixon Demential Exam: Dixon Note: Please also refer to the separate dictated note~for this date of service dictated separately.~Patient seen individually. Discussed the patient with Nursing staff reviewed the chart.~Reviewed interim history and current functioning. Reviewed vital signs,~Labs/ Radiology~and current medications noted below. Continue current treatment with the changes noted in the dictated addendum note Assessment: Vital Signs: Vital Signs Date Time Temp Pulse Resp B/P (MAP) Pulse Ox O2 Delivery O2 Flow Rate FiO2 03/17/17 18:24 98.8 135 20 135/85 (102) 96 Room Air I&O Intake and Output 03/18/17 07:00 Intake Total 250 ml Balance 250 ml Intake Oral 250 ml Current Medications: Meds: Current Medications Sodium Chloride 1,000 ml @ 100 mls/hr Q10H IV Last administered on 03/14/17 23 :32; Start 03/14/17 at 23:30; Stop 03/15/17 at 09:30; Status DC Ceftriaxone Sodium 1 gm/ Sodium Chloride 50 ml @ 100 mls/hr 1X ONCE IV Last administered on 03/15/17 00:14; Start 03/15/17 at 00:15; Stop 03/15/17 at 00:44; Status DC Sodium Chloride 50 ml @ As Directed STK-MED ONCE .ROUTE ; Start 03/15/17 at 00:04 ; Stop 03/15/17 at 00:05; Status DC Ceftriaxone Sodium (Rocephin) 1 gm STK-MED ONCE IV ; Start 03/15/17 at 00:04; Stop 03/15/17 at 00:05; Status DC Ceftriaxone Sodium 1 gm/ Sodium Chloride 50 ml @ 100 mls/hr QHS IV Last administered on 03/16/17 20:34; Start 03/15/17 at 21:00; Stop 03/17/17 at 10:20; Status DC Aspirin (Jayant Aspirin) 325 mg DAILY PO Last administered on 03/16/17 09:00; Start 03/15/17 at 09:00; Stop 03/17/17 at 10:18; Status DC Lorazepam (Ativan) 1 mg 1X PRN PRN PO Agitation Last administered on 03/15/17 08:51; Start 03/15/17 at 02:30; Stop 03/15/17 at 13:49; Status DC Lorazepam (Ativan) 1 mg 1X ONCE PO Last administered on 03/15/17 02:45; Start 03/15/17 at 02:45; Stop 03/15/17 at 13:49; Status DC Aspirin (Jayant Aspirin) 325 mg 1X ONCE PO Last administered on 03/15/17 02:45 ; Start 03/15/17 at 02:45; Stop 03/15/17 at 02:46; Status DC Atorvastatin Calcium (Lipitor) 20 mg QHS PO Last administered on 03/16/17 20:34 ; Start 03/15/17 at 21:00 Docusate Sodium (Colace) 100 mg BID PO Last administered on 03/17/17 09:01; Start 03/15/17 at 09:00 Donepezil HCl (Aricept) 10 mg HS PO ; Start 03/15/17 at 21:00; Stop 03/15/17 at 21 :00; Status DC Levothyroxine Sodium (Synthroid) 25 mcg DAILY07 PO Last administered on 04:52; Start 03/16/17 at 07:00 Montelukast Sodium (Singulair) 10 mg HS PO Last administered on 03/16/17 20:34 ; Start 03/15/17 at 21:00 Pantoprazole Sodium (Protonix) 40 mg BID PO Last administered on 03/17/17 09:01 ; Start 03/15/17 at 09:00 Ramelteon (Rozerem) 8 mg PRN QHS PRN PO INSOMNIA; Start 03/15/17 at 07:15; Stop 03/15/17 at 13:49; Status DC Diltiazem HCl (Cardizem 24hr Cd) 240 mg DAILY PO Last administered on 03/17/17 09:01; Start 03/15/17 at 09:00 Gabapentin (Neurontin) 600 mg TID PO Last administered on 03/15/17 08:52; Start 03/15/17 at 09:00; Stop 03/15/17 at 13:49; Status DC Lisinopril (Prinivil) 20 mg DAILY PO Last administered on 03/17/17 09:01; Start 03/15/17 at 09:00 [place] Carbonate 300 mg BID PO Last administered on 03/17/17 18:31; Start 03/15 at 09:00 Potassium Chloride (Klor-Con) 10 meq DAILYWBKFT PO Last administered on 09:00; Start 03/15/17 at 08:00 Rivaroxaban (Xarelto) 20 mg DAILYWSUP PO Last administered on 03/17/17 17:32; Start 03/15/17 at 17:00 Non-Formulary Medication 10 mg DAILY PO ; Start 03/15/17 at 09:00; Stop 03/17/17 at 10:19; Status DC Hydrochlorothiazide (Microzide) 12.5 mg DAILY PO Last administered on 03/17/17 09:01; Start 03/15/17 at 09:00 Sodium Chloride 50 ml @ As Directed STK-MED ONCE .ROUTE Last administered on 20:40; Start 03/15/17 at 20:23; Stop 03/15/17 at 20:24; Status DC Trazodone HCl (Desyrel) 50 mg PRN QHS PRN PO INSOMNIA, MAY REPEAT X1 Last administered on 03/16/17 00:41; Start 03/15/17 at 20:45; Stop 03/16/17 at 20:19; Status DC Trazodone HCl (Desyrel) 100 mg PRN QHS PRN PO INSOMNIA, MAY REPEAT X1; Start at 20:30 Risperidone (RisperDAL) 0.5 mg QHS PO Last administered on 03/16/17 20:35; Start 03/16/17 at 21:00; Stop 03/17/17 at 19:10; Status DC Risperidone (RisperDAL) 1 mg QHS PO ; Start 03/17/17 at 21:00 Alprazolam (Xanax) 0.5 mg PRN Q4HRS PRN PO ANXIETY / AGITATION; Start 03/17/17 at 19:15 Active Scripts Active Xarelto (Rivaroxaban) 20 Mg Tablet 20 Mg PO DAILYWSUP Reported Gabapentin 600 Mg Tablet 600 Mg PO TID [place] Carbonate 300 Mg Tablet 300 Mg PO BID Pantoprazole Sodium 40 Mg Tablet.dr 40 Mg PO BID Doc-Q-Lace (Docusate Sodium) 100 Mg Capsule 100 Mg PO BID Donepezil Hcl 10 Mg Tablet 10 Mg PO HS Lisinopril-Hctz 20-12.5 Mg Tab (Lisinopril/Hydrochlorothiazide) 1 Each Tablet 1 Tab PO DAILY Rozerem (Ramelteon) 8 Mg Tablet 8 Mg PO HS PRN Trintellix (Vortioxetine Hydrobromide) 10 Mg Tablet 10 Mg PO DAILY Potassium Chloride 10 Meq Tablet.er 10 Meq PO DAILYWBKFT Diltiazem 24Hr ER (Diltiazem HCl) 240 Mg Tab.er.24h 240 Mg PO DAILY Atorvastatin Calcium 20 Mg Tablet 20 Mg PO QHS NOT GIVEN IN THE HOSPITAL NEXT DOSE DUE: DATE: RESTART TODAY TIME: AT BEDTIME Levothyroxine Sodium 25 Mcg Tablet 1 Tab PO DAILY07 LAST DOSE GIVEN: DATE:TODAY TIME: BEFORE BREAKFAST NEXT DOSE DUE: DATE: TOMORROW TIME: BEFORE BREAKFAST Singulair Tablet (Montelukast Sodium) 10 Mg Tablet 10 Mg PO HS NOT GIVEN IN HOSPITAL NEXT DOSE DUE: DATE: RESTART TODAY TIME: AT BEDTIME Diagnosis: Problems: (1) Bipolar affective disorder (2) Delusional disorder (3) Anxiety disorder (4) Bipolar affective, mixed, sev w/ psych EULALIA NANCE MD Mar 17, 2017 19:48
[2017-03-17] MEDS: ATORVASTATIN CALCIUM 20 MG TABLET PO SCH (20:15)
[2017-03-17] MEDS: MONTELUKAST 10 MG TABLET. PO SCH (20:15)
[2017-03-17] MEDS: ALPRAZolam 0.5 MG TABLET PO PRN (20:15)
[2017-03-17] MEDS ORDERED: risperiDONE 1 MG TABLET. PO SCH (21:00)
[2017-03-17] MEDS: traZODone 100 MG TABLET. PO PRN (22:04)
--- NOTE | 2017-03-17 23:00 | PN ---
DATE: PROBLEMS: 1. Bipolar 1, mixed disorder with psychosis. 2. Major depressive disorder. 3. Anxiety. 4. Leukocytosis without evidence of infection. 5. Fibromyalgia. 6. Polypharmacy. SUBJECTIVE: The patient was seen by Dr. Brown yesterday and Risperdal was started. We will not continue with the Trileptal. She is very reluctant to take her medications and she needs some serious convincing. She is very paranoid and very psychotic at the present time. Family does not want her to go [facility] to the [facility] for medication stabilization. Discussed with Dr. Brown her condition this morning and we will pursue other avenues. Also was continued on the lithium. The level was ordered, it was done yesterday, it is in progress. OBJECTIVE: VITAL SIGNS: Blood pressure is 121/78, pulse 101, temperature 95, pulse ox is 98% on room air. GENERAL: Initially she was very restless, we got up, we walked around the unit. Once she got back in bed, she was very anxious. LUNGS: Clear. CARDIOVASCULAR: Regular rhythm and rate. ABDOMEN: Soft, nontender. EXTREMITIES: Without edema. MENTAL STATE: She progressed from being very anxious to being very psychotic and staring up at the ceiling and in an almost catatonic state and not responding to staff. PLAN: Psychiatric placement. She is medically stable at this time for placement. SHALOM RUIZ DO DR: JACKSON/fernando JOB#: [id number] / [id number]
--- NOTE | 2017-03-18 02:21 | PN ---
DATE: 03/17/2017 This note covers elements not covered in my initial note of 03/17/2017. I met with the patient evening of 03/17/2017. I had previously discussed the patient with Dr. Hall earlier this morning. She remains psychotic. This evening she has been wandering in the hallway, fixated on her 's social security and on [place], some of which is disconnected with anything around her. She appears psychotic. Her thought blocking quite evident. [place] level is 0.6. No active suicidal or homicidal ideation. Dr. Hall had discussed that the patient may need inpatient psychiatric stabilization. She is not agreeable to going to the [facility] upstairs and may need transfer to [facility] or [place], [place]. MENTAL STATUS EXAM: The patient was seen in her room and in the hallway. She is anxious, quite paranoid, delusional, intermittent hallucinations are noted, very repetitive. Thought blocking is quite evident. Speech, often responses monosyllabic. No active suicidal or homicidal ideation. Attention span is short. Language function intact. LABORATORY DATA: Reviewed. 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 PLAN: From a psychiatric standpoint, increase Risperdal from 0.5 mg a day to 1 mg a day. Continue trazodone 100 mg at bedtime p.r.n., may repeat x 1. Add Xanax 0.5 mg q.4 hours p.r.n. anxiety. Continue lithium carbonate 300 b.i.d., perhaps transfer to an appropriate inpatient psychiatric facility when she is medically stable. MAN Chantell NANCE MD DR: ELLIS/fernando JOB#: [id number] / [id number]
[2017-03-18] MEDS: ALPRAZolam 0.5 MG TABLET PO PRN ×3 (05:11→23:16)
[2017-03-18] MEDS: LEVOTHYROXINE 25 MCG TABLET. PO SCH (05:11)
[2017-03-18 06:00] VITALS: BP 129/81
--- NOTE | 2017-03-18 07:26 | ACF ---
Admit Criteria Forms Admit Criteria Forms Admit Criteria Forms MENTAL STATUS CHANGE Clinical Indications for Inpatient Care (Place 'X' for any and all applicable criteria): Ongoing inpatient care may be needed for 1 or more of the following(1)(2)(3)(5)( 6): [X]I. Suspected serious etiology (eg, medical disorder, HERPETOLOGIST event) of altered mental status [ ]II. Danger to self or others not manageable at lower level of care [ ]III. Grave disability (eg, inability to perform self care necessary at lower level of care) [ ]IV. Agitation or inappropriate behavior interfering with care for primary condition (eg, attempting to discontinue lines or drains prematurely, unable to cooperate with respiratory care) [ ]V. Delirium [A] [D][E] as described by 1 or more of the following(26): [ ]a) Delirium due to alcohol or sedative [F] withdrawal [ ]b) Delirium of uncertain etiology that has not responded to appropriate empiric treatment [ ]c) Delirium that prevents performance of a life-sustaining function (eg, feeding or hydrating oneself) [ ]. General contraindications and/or Inappropriate clinical situations for Observational Care in patients with Mental Status Change, when ANY ONE of the following is required: [ ]a) Prediction of prolongation of LOS based on ANY ONE of the following may be considered as a contraindication for observational care 2, 3, 4, 5, 6, 7, 8, 9, 10, 11 [ ]i) Age > 65 yrs. [ ]ii) Patient arriving by ambulance [ ]iii) Patient with high acuity [ ]iv) Patient requiring vital sign monitoring [ ]v) Patient on IV medication [ ]b) Systolic blood pressures greater than or equal to 180mmHg 3, 12 [ ]c) Patient with altered mental status including delirium and other alteration of consciousness, (3) [ ]d) Patient whose discharge disposition will be to a [place] [facility] home or rehabilitation home should not be managed in Emergency Department Observation Unit. CMS rule requires 3 days hospital stay before such placement.3,13 [ ]e) Patient with failure to thrive due to broad array of etiologies 3,16,17 [ ]f) Inability to ambulate 3,14 Extended stay beyond goal length of stay for the primary condition may be needed until ALL of the following are present(3)(5): [ ]a) Underlying medical etiology of mental status change is absent, or has been established and adequately treated [ ]b) Danger to self or others is absent or manageable at lower level of care. [ ]c) Behavior crisis management, including physical or chemical restraints, is not required or available at lower level of car [ ]d) Substance or alcohol withdrawal is absent or manageable at lower level of care. [ ]e) Behavioral symptoms (eg, agitation, somnolence, inappropriate behavior) are absent, or are manageable at lower level of care. The original [facility] [employer] content created by [facility] has been revised. The portions of the content which have been revised are identified through the use of italic text or in bold, and [facility] has neither reviewed nor approved the modified material. All other unmodified content is copyright [facility]. Please see references footnoted in the original [facility] [employer] edition 2016 REBECCA BARTON Mar 18, 2017 07:26
[2017-03-18] MEDS: POTASSIUM CHLORIDE 10 MEQ TABLET.ER. PO SCH (08:21)
[2017-03-18] MEDS: PANTOPRAZOLE 40 MG TABLET. PO SCH ×2 (08:22→19:37)
[2017-03-18] MEDS: LISINOPRIL 20 MG TABLET PO SCH (08:22)
[2017-03-18] MEDS: LITHIUM CARBONATE 300 MG TABLET PO SCH ×2 (08:22→19:37)
[2017-03-18] MEDS: DOCUSATE SODIUM 100 MG CAPSULE PO SCH ×2 (08:22→19:37)
[2017-03-18] MEDS: hydroCHLOROthiazide 12.5 MG CAPSULE PO SCH (08:22)
[2017-03-18 08:25] LABS: BASO # 0.1 x10^3/uL (0.0-0.2); BASO % 1 % (0-3); EOS # 0.1 x10^3/uL (0.0-0.7); EOS % 1 % (0-3); HEMATOCRIT 48.5 % (36.0-47.0); HEMOGLOBIN 15.8 g/dL (12.0-15.5); LYMPH # 2.4 x10^3/uL (1.0-4.8); LYMPH % 20 % (24-48); MEAN CORPUSCULAR HEMOGLOBIN 31 pg (25-35); MEAN CORPUSCULAR HGB CONC 33 g/dL (31-37); MEAN CORPUSCULAR VOLUME 94 fL (79-100); MONO # 0.7 x10^3/uL (0.0-1.1); MONO % 6 % (0-9); NEUT % 74 % (31-73); PLATELET COUNT 302 x10^3/uL (140-400); RED BLOOD COUNT 5.16 x10^6/uL (3.50-5.40); RED CELL DISTRIBUTION WIDTH 13.8 % (11.5-14.5); WHITE BLOOD COUNT 12.2 x10^3/uL (4.0-11.0)
[2017-03-18 08:51] LABS: ALBUMIN 4.4 g/dL (3.4-5.0); ALBUMIN/GLOBULIN RATIO 1.3 (1.0-1.7); CALCIUM 10.1 mg/dL (8.5-10.1); CREATININE 0.9 mg/dL (0.6-1.0); GFR 62.8; MAGNESIUM 2.5 mg/dL (1.8-2.4); POTASSIUM 4.3 mmol/L (3.5-5.1); TOTAL BILIRUBIN 0.7 mg/dL (0.2-1.0); TOTAL PROTEIN 7.8 g/dL (6.4-8.2)
[2017-03-18 15:14] VITALS: BP 117/80
[2017-03-18] MEDS: RIVAROXABAN 10 MG TABLET. PO SCH (17:09)
--- NOTE | 2017-03-18 18:33 | PDOC ---
Exam Dixon Demential Exam: Dixon Note: Please also refer to the separate dictated note~for this date of service dictated separately.~Patient seen individually. Discussed the patient with Nursing staff reviewed the chart.~Reviewed interim history and current functioning. Reviewed vital signs,~Labs/ Radiology~and current medications noted below. Continue current treatment with the changes noted in the dictated addendum note Assessment: Vital Signs: Vital Signs Date Time Temp Pulse Resp B/P (MAP) Pulse Ox O2 Delivery O2 Flow Rate FiO2 03/18/17 15:14 98.1 118 16 117/80 (92) Room Air 03/18/17 06:00 97 I&O Intake and Output 03/19/17 07:00 # Voids 3 Labs: Laboratory Tests Test 03/18/17 08:08 White Blood Count 12.2 x10^3/uL (4.0-11.0) H Red Blood Count 5.16 x10^6/uL (3.50-5.40) Hemoglobin 15.8 g/dL (12.0-15.5) H Hematocrit 48.5 % (36.0-47.0) H Mean Corpuscular Volume 94 fL (79-100) Mean Corpuscular Hemoglobin 31 pg (25-35) Mean Corpuscular Hemoglobin Concent 33 g/dL (31-37) Red Cell Distribution Width 13.8 % (11.5-14.5) Platelet Count 302 x10^3/uL (140-400) Neutrophils (%) (Auto) 74 % (31-73) H Lymphocytes (%) (Auto) 20 % (24-48) L Monocytes (%) (Auto) 6 % (0-9) Eosinophils (%) (Auto) 1 % (0-3) Basophils (%) (Auto) 1 % (0-3) Neutrophils # (Auto) 9.0 x10^3uL (1.8-7.7) H Lymphocytes # (Auto) 2.4 x10^3/uL (1.0-4.8) Monocytes # (Auto) 0.7 x10^3/uL (0.0-1.1) Eosinophils # (Auto) 0.1 x10^3/uL (0.0-0.7) Basophils # (Auto) 0.1 x10^3/uL (0.0-0.2) Sodium Level 140 mmol/L (136-145) Potassium Level 4.3 mmol/L (3.5-5.1) Chloride Level 103 mmol/L (98-107) Carbon Dioxide Level 25 mmol/L (21-32) Anion Gap 12 (6-14) Blood Urea Nitrogen 16 mg/dL (7-20) Creatinine 0.9 mg/dL (0.6-1.0) Estimated GFR (Cockcroft-Gault) 62.8 BUN/Creatinine Ratio 18 (6-20) Glucose Level 108 mg/dL (70-99) H Calcium Level 10.1 mg/dL (8.5-10.1) Magnesium Level 2.5 mg/dL (1.8-2.4) H Total Bilirubin 0.7 mg/dL (0.2-1.0) Aspartate Amino Transferase (AST) 49 U/L (15-37) H Alanine Aminotransferase (ALT) 61 U/L (14-59) H Alkaline Phosphatase 157 U/L (46-116) H Total Protein 7.8 g/dL (6.4-8.2) Albumin 4.4 g/dL (3.4-5.0) Albumin/Globulin Ratio 1.3 (1.0-1.7) Current Medications: Meds: Current Medications Sodium Chloride 1,000 ml @ 100 mls/hr Q10H IV Last administered on 03/14/17 23 :32; Start 03/14/17 at 23:30; Stop 03/15/17 at 09:30; Status DC Ceftriaxone Sodium 1 gm/ Sodium Chloride 50 ml @ 100 mls/hr 1X ONCE IV Last administered on 03/15/17 00:14; Start 03/15/17 at 00:15; Stop 03/15/17 at 00:44; Status DC Sodium Chloride 50 ml @ As Directed STK-MED ONCE .ROUTE ; Start 03/15/17 at 00:04 ; Stop 03/15/17 at 00:05; Status DC Ceftriaxone Sodium (Rocephin) 1 gm STK-MED ONCE IV ; Start 03/15/17 at 00:04; Stop 03/15/17 at 00:05; Status DC Ceftriaxone Sodium 1 gm/ Sodium Chloride 50 ml @ 100 mls/hr QHS IV Last administered on 03/16/17 20:34; Start 03/15/17 at 21:00; Stop 03/17/17 at 10:20; Status DC Aspirin (Code[place] Aspirin) 325 mg DAILY PO Last administered on 03/16/17 09:00; Start 03/15/17 at 09:00; Stop 03/17/17 at 10:18; Status DC Lorazepam (Ativan) 1 mg 1X PRN PRN PO Agitation Last administered on 03/15/17 08:51; Start 03/15/17 at 02:30; Stop 03/15/17 at 13:49; Status DC Lorazepam (Ativan) 1 mg 1X ONCE PO Last administered on 03/15/17 02:45; Start 03/15/17 at 02:45; Stop 03/15/17 at 13:49; Status DC Aspirin (Codecademy Aspirin) 325 mg 1X ONCE PO Last administered on 03/15/17 02:45 ; Start 03/15/17 at 02:45; Stop 03/15/17 at 02:46; Status DC Atorvastatin Calcium (Lipitor) 20 mg QHS PO Last administered on 03/17/17 20:15 ; Start 03/15/17 at 21:00 Docusate Sodium (Colace) 100 mg BID PO Last administered on 03/17/17 20:15; Start 03/15/17 at 09:00 Donepezil HCl (Aricept) 10 mg HS PO ; Start 03/15/17 at 21:00; Stop 03/15/17 at 21 :00; Status DC Levothyroxine Sodium (Synthroid) 25 mcg DAILY07 PO Last administered on 05:11; Start 03/16/17 at 07:00 Montelukast Sodium (Singulair) 10 mg HS PO Last administered on 03/17/17 20:15 ; Start 03/15/17 at 21:00 Pantoprazole Sodium (Protonix) 40 mg BID PO Last administered on 03/18/17 08:22 ; Start 03/15/17 at 09:00 Ramelteon (Rozerem) 8 mg PRN QHS PRN PO INSOMNIA; Start 03/15/17 at 07:15; Stop 03/15/17 at 13:49; Status DC Diltiazem HCl (Cardizem 24hr Cd) 240 mg DAILY PO Last administered on 03/18/17 08:22; Start 03/15/17 at 09:00 Gabapentin (Neurontin) 600 mg TID PO Last administered on 03/15/17 08:52; Start 03/15/17 at 09:00; Stop 03/15/17 at 13:49; Status DC Lisinopril (Prinivil) 20 mg DAILY PO Last administered on 03/18/17 08:22; Start 03/15/17 at 09:00 [place] Carbonate 300 mg BID PO Last administered on 03/18/17 08:22; Start 03/15 at 09:00 Potassium Chloride (Klor-Con) 10 meq DAILYWBKFT PO Last administered on 08:21; Start 03/15/17 at 08:00 Rivaroxaban (Xarelto) 20 mg DAILYWSUP PO Last administered on 03/18/17 17:09; Start 03/15/17 at 17:00 Non-Formulary Medication 10 mg DAILY PO ; Start 03/15/17 at 09:00; Stop 03/17/17 at 10:19; Status DC Hydrochlorothiazide (Microzide) 12.5 mg DAILY PO Last administered on 03/18/17 08:22; Start 03/15/17 at 09:00 Sodium Chloride 50 ml @ As Directed STK-MED ONCE .ROUTE Last administered on 20:40; Start 03/15/17 at 20:23; Stop 03/15/17 at 20:24; Status DC Trazodone HCl (Desyrel) 50 mg PRN QHS PRN PO INSOMNIA, MAY REPEAT X1 Last administered on 03/16/17 00:41; Start 03/15/17 at 20:45; Stop 03/16/17 at 20:19; Status DC Trazodone HCl (Desyrel) 100 mg PRN QHS PRN PO INSOMNIA, MAY REPEAT X1 Last administered on 03/17/17 22:04; Start 03/16/17 at 20:30 Risperidone (RisperDAL) 0.5 mg QHS PO Last administered on 03/16/17 20:35; Start 03/16/17 at 21:00; Stop 03/17/17 at 19:10; Status DC Risperidone (RisperDAL) 1 mg QHS PO Last administered on 03/17/17 20:15; Start 03/17/17 at 21:00 Alprazolam (Xanax) 0.5 mg PRN Q4HRS PRN PO ANXIETY / AGITATION Last administered on 03/18/17 17:09; Start 03/17/17 at 19:15 Active Scripts Active Xarelto (Rivaroxaban) 20 Mg Tablet 20 Mg PO DAILYWSUP Reported Gabapentin 600 Mg Tablet 600 Mg PO TID [place] Carbonate 300 Mg Tablet 300 Mg PO BID Pantoprazole Sodium 40 Mg Tablet.dr 40 Mg PO BID Doc-Q-Lace (Docusate Sodium) 100 Mg Capsule 100 Mg PO BID Donepezil Hcl 10 Mg Tablet 10 Mg PO HS Lisinopril-Hctz 20-12.5 Mg Tab (Lisinopril/Hydrochlorothiazide) 1 Each Tablet 1 Tab PO DAILY Rozerem (Ramelteon) 8 Mg Tablet 8 Mg PO HS PRN Trintellix (Vortioxetine Hydrobromide) 10 Mg Tablet 10 Mg PO DAILY Potassium Chloride 10 Meq Tablet.er 10 Meq PO DAILYWBKFT Diltiazem 24Hr ER (Diltiazem HCl) 240 Mg Tab.er.24h 240 Mg PO DAILY Atorvastatin Calcium 20 Mg Tablet 20 Mg PO QHS NOT GIVEN IN THE HOSPITAL NEXT DOSE DUE: DATE: RESTART TODAY TIME: AT BEDTIME Levothyroxine Sodium 25 Mcg Tablet 1 Tab PO DAILY07 LAST DOSE GIVEN: DATE:TODAY TIME: BEFORE BREAKFAST NEXT DOSE DUE: DATE: TOMORROW TIME: BEFORE BREAKFAST Singulair Tablet (Montelukast Sodium) 10 Mg Tablet 10 Mg PO HS NOT GIVEN IN HOSPITAL NEXT DOSE DUE: DATE: RESTART TODAY TIME: AT BEDTIME Diagnosis: Problems: (1) Bipolar affective, mixed, sev w/ psych (2) Anxiety disorder (3) Impulse control disorder EULALIA NANCE MD Mar 18, 2017 18:33
[2017-03-18 19:17] VITALS: BP 95/62
[2017-03-18] MEDS: ATORVASTATIN CALCIUM 20 MG TABLET PO SCH (19:37)
[2017-03-18] MEDS: MONTELUKAST 10 MG TABLET. PO SCH (19:37)
[2017-03-18] MEDS ORDERED: risperiDONE 1 MG TABLET. PO SCH (21:00)
[2017-03-18] MEDS: traZODone 100 MG TABLET. PO PRN (23:16)
--- NOTE | 2017-03-18 23:41 | PN ---
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 The patient remains psychotic. She alternates between staring up at the ceiling and almost being catatonic to getting up coming out in to the nurse's station and just querying the nurses. She then goes back to bed and stares up at the ceiling. Dr. Brown is seeing her on a daily basis. Her lithium is therapeutic. She continues to be very delusional and worried about things that have happened in the past. OBJECTIVE: VITAL SIGNS: Blood pressure is 129/81, pulse ox 97, temperature 98.2, pulse is 129 when she is calm, it was 81 yesterday. GENERAL: She continues to be psychotic. Physical exam is unchanged. PSYCHIATRIC: She is still delusional. She still knows who I am. LABORATORY DATA: White blood cell count is 12.2. Chemistry, slightly elevated liver function tests. PLAN: We have been unsuccessful on placing her for her psychotic condition. Family has agreed that she [facility] and we are working towards that, intake will be done. SHALOM RUIZ DO DR: JACKSON/fernando JOB#: [id number] / [id number]
[2017-03-19] MEDS: LEVOTHYROXINE 25 MCG TABLET. PO SCH (06:22)
[2017-03-19 06:28] VITALS: BP 87/54
[2017-03-19] MEDS: DOCUSATE SODIUM 100 MG CAPSULE PO SCH ×2 (08:20→20:32)
[2017-03-19] MEDS: PANTOPRAZOLE 40 MG TABLET. PO SCH ×2 (08:34→20:24)
[2017-03-19] MEDS: ALPRAZolam 0.5 MG TABLET PO PRN (08:34)
[2017-03-19] MEDS: LITHIUM CARBONATE 300 MG TABLET PO SCH ×2 (08:34→20:24)
[2017-03-19] MEDS: LISINOPRIL 20 MG TABLET PO SCH (08:35)
[2017-03-19] MEDS: POTASSIUM CHLORIDE 10 MEQ TABLET.ER. PO SCH (08:35)
[2017-03-19] MEDS: hydroCHLOROthiazide 12.5 MG CAPSULE PO SCH (08:35)
[2017-03-19] MEDS ORDERED: IV NORMAL SALINE 500ML 500 ML ONE (14:21)
[2017-03-19 14:52] VITALS: BP 80/60
[2017-03-19 15:13] VITALS: BP 112/69
[2017-03-19] MEDS ORDERED: ALPRAZolam 0.5 MG TABLET PO PRN (15:15)
--- NOTE | 2017-03-19 15:53 | PDOC ---
SUBJECTIVE: REMAINS PSYCHOTIC. DOES NOT HAVE BRONCHITIS. XANAX HAS MADE HER HYPOTENSIVE, HOWEVER SHE IS ASYMPTOMATIC. BP UP WITH PO FLUIDS. SHE IS #4 ON THE LIST FOR [facility]. SHE DOES NOT HAVE A DPOA. SHE CONTINUES TO STARE UP AT THE CEILING, THEN START TO TALK ABOUT THINGS THAT DON'T MAKE SENSE AND THEN GET UP AND TRY TO LEAVE. VERY PARANOID OBJECTIVE: Problems: Problems Medical Problems: (1) Blood alkaline phosphatase increased compared with prior measurement Status: Acute Status: Acute (3) Leukocytosis Status: Acute (4) Mental status change Status: Acute PROBLEMS: 1. Bipolar 1 disorder, mixed with psychotic features; 2. anxiety , major 3.neurocognitive disorder, probably vascular with depression, 4.delusional disorder, 5.leukocytosis without any evidence of infection,6. polypharmacy,7. 8. fibromyalgia. 9. HYPOTENTION SECONDARY TO XANAX PE UNCHANGED. MENTAL STATUS UNCHANGED Vital Signs: Vital Signs Date Time Temp Pulse Resp B/P (MAP) Pulse Ox O2 Delivery O2 Flow Rate FiO2 03/19/17 15:13 70 18 112/69 (83) 99 03/19/17 14:52 97.6 Room Air I & O Intake and Output 03/20/17 07:00 Intake Total 360 ml Balance 360 ml Intake Oral 360 ml Labs: Laboratory Tests Test 03/18/17 08:08 White Blood Count 12.2 x10^3/uL (4.0-11.0) Red Blood Count 5.16 x10^6/uL (3.50-5.40) Hemoglobin 15.8 g/dL (12.0-15.5) Hematocrit 48.5 % (36.0-47.0) Mean Corpuscular Volume 94 fL (79-100) Mean Corpuscular Hemoglobin 31 pg (25-35) Mean Corpuscular Hemoglobin Concent 33 g/dL (31-37) Red Cell Distribution Width 13.8 % (11.5-14.5) Platelet Count 302 x10^3/uL (140-400) Neutrophils (%) (Auto) 74 % (31-73) Lymphocytes (%) (Auto) 20 % (24-48) Monocytes (%) (Auto) 6 % (0-9) Eosinophils (%) (Auto) 1 % (0-3) Basophils (%) (Auto) 1 % (0-3) Neutrophils # (Auto) 9.0 x10^3uL (1.8-7.7) Lymphocytes # (Auto) 2.4 x10^3/uL (1.0-4.8) Monocytes # (Auto) 0.7 x10^3/uL (0.0-1.1) Eosinophils # (Auto) 0.1 x10^3/uL (0.0-0.7) Basophils # (Auto) 0.1 x10^3/uL (0.0-0.2) Sodium Level 140 mmol/L (136-145) Potassium Level 4.3 mmol/L (3.5-5.1) Chloride Level 103 mmol/L (98-107) Carbon Dioxide Level 25 mmol/L (21-32) Anion Gap 12 (6-14) Blood Urea Nitrogen 16 mg/dL (7-20) Creatinine 0.9 mg/dL (0.6-1.0) Estimated GFR (Cockcroft-Gault) 62.8 BUN/Creatinine Ratio 18 (6-20) Glucose Level 108 mg/dL (70-99) Calcium Level 10.1 mg/dL (8.5-10.1) Magnesium Level 2.5 mg/dL (1.8-2.4) Total Bilirubin 0.7 mg/dL (0.2-1.0) Aspartate Amino Transf (AST/SGOT) 49 U/L (15-37) Alanine Aminotransferase (ALT/SGPT) 61 U/L (14-59) Alkaline Phosphatase 157 U/L (46-116) Total Protein 7.8 g/dL (6.4-8.2) Albumin 4.4 g/dL (3.4-5.0) Albumin/Globulin Ratio 1.3 (1.0-1.7) Physical Exam: PE UNCHANGED. ASSESSMENT: ABOVE PLAN: TRANSFER TO [facility] WHEN BED IS AVAILABLE. BP PARAMETERS ORDERED FOR THE ADMINISTRATION OF XANAX. BP MEDICATIONS ADJUSTED. SHALOM RUIZ DO Mar 19, 2017 15:53
[2017-03-19] MEDS: RIVAROXABAN 10 MG TABLET. PO SCH (17:00)
[2017-03-19 19:35] VITALS: BP 109/76
[2017-03-19] MEDS: traZODone 100 MG TABLET. PO PRN (20:24)
[2017-03-19] MEDS: risperiDONE 1 MG TABLET. PO SCH (20:24)
[2017-03-19] MEDS: ATORVASTATIN CALCIUM 20 MG TABLET PO SCH (20:24)
[2017-03-19] MEDS: MONTELUKAST 10 MG TABLET. PO SCH (20:24)
--- NOTE | 2017-03-19 20:26 | PDOC ---
Exam Dixon Demential Exam: Dixon Note: Please also refer to the separate dictated note~for this date of service dictated separately.~Patient seen individually. Discussed the patient with Nursing staff reviewed the chart.~Reviewed interim history and current functioning. Reviewed vital signs,~Labs/ Radiology~and current medications noted below. Continue current treatment with the changes noted in the dictated addendum note Assessment: Vital Signs: Vital Signs Date Time Temp Pulse Resp B/P (MAP) Pulse Ox O2 Delivery O2 Flow Rate FiO2 03/19/17 19:53 Room Air 03/19/17 19:35 98.6 126 20 109/76 (87) 96 I&O Intake and Output 03/20/17 07:00 Intake Total 360 ml Balance 360 ml Intake Oral 360 ml Current Medications: Meds: Current Medications Sodium Chloride 1,000 ml @ 100 mls/hr Q10H IV Last administered on 03/14/17 23 :32; Start 03/14/17 at 23:30; Stop 03/15/17 at 09:30; Status DC Ceftriaxone Sodium 1 gm/ Sodium Chloride 50 ml @ 100 mls/hr 1X ONCE IV Last administered on 03/15/17 00:14; Start 03/15/17 at 00:15; Stop 03/15/17 at 00:44; Status DC Sodium Chloride 50 ml @ As Directed STK-MED ONCE .ROUTE ; Start 03/15/17 at 00:04 ; Stop 03/15/17 at 00:05; Status DC Ceftriaxone Sodium (Rocephin) 1 gm STK-MED ONCE IV ; Start 03/15/17 at 00:04; Stop 03/15/17 at 00:05; Status DC Ceftriaxone Sodium 1 gm/ Sodium Chloride 50 ml @ 100 mls/hr QHS IV Last administered on 03/16/17 20:34; Start 03/15/17 at 21:00; Stop 03/17/17 at 10:20; Status DC Aspirin ([place] Aspirin) 325 mg DAILY PO Last administered on 03/16/17 09:00; Start 03/15/17 at 09:00; Stop 03/17/17 at 10:18; Status DC Lorazepam (Ativan) 1 mg 1X PRN PRN PO Agitation Last administered on 03/15/17 08:51; Start 03/15/17 at 02:30; Stop 03/15/17 at 13:49; Status DC Lorazepam (Ativan) 1 mg 1X ONCE PO Last administered on 03/15/17 02:45; Start 03/15/17 at 02:45; Stop 03/15/17 at 13:49; Status DC Aspirin (Jayant Aspirin) 325 mg 1X ONCE PO Last administered on 03/15/17 02:45 ; Start 03/15/17 at 02:45; Stop 03/15/17 at 02:46; Status DC Atorvastatin Calcium (Lipitor) 20 mg QHS PO Last administered on 03/19/17 20:24 ; Start 03/15/17 at 21:00 Docusate Sodium (Colace) 100 mg BID PO Last administered on 03/17/17 20:15; Start 03/15/17 at 09:00 Donepezil HCl (Aricept) 10 mg HS PO ; Start 03/15/17 at 21:00; Stop 03/15/17 at 21 :00; Status DC Levothyroxine Sodium (Synthroid) 25 mcg DAILY07 PO Last administered on 06:22; Start 03/16/17 at 07:00 Montelukast Sodium (Singulair) 10 mg HS PO Last administered on 03/19/17 20:24 ; Start 03/15/17 at 21:00 Pantoprazole Sodium (Protonix) 40 mg BID PO Last administered on 03/19/17 20:24 ; Start 03/15/17 at 09:00 Ramelteon (Rozerem) 8 mg PRN QHS PRN PO INSOMNIA; Start 03/15/17 at 07:15; Stop 03/15/17 at 13:49; Status DC Diltiazem HCl (Cardizem 24hr Cd) 240 mg DAILY PO Last administered on 03/19/17 08:35; Start 03/15/17 at 09:00 Gabapentin (Neurontin) 600 mg TID PO Last administered on 03/15/17 08:52; Start 03/15/17 at 09:00; Stop 03/15/17 at 13:49; Status DC Lisinopril (Prinivil) 20 mg DAILY PO Last administered on 03/19/17 08:35; Start 03/15/17 at 09:00; Stop 03/19/17 at 15:07; Status DC [place] Carbonate 300 mg BID PO Last administered on 03/19/17 20:24; Start 03/15 at 09:00 Potassium Chloride (Klor-Con) 10 meq DAILYWBKFT PO Last administered on 08:35; Start 03/15/17 at 08:00 Rivaroxaban (Xarelto) 20 mg DAILYWSUP PO Last administered on 03/18/17 17:09; Start 03/15/17 at 17:00 Non-Formulary Medication 10 mg DAILY PO ; Start 03/15/17 at 09:00; Stop 03/17/17 at 10:19; Status DC Hydrochlorothiazide (Microzide) 12.5 mg DAILY PO Last administered on 03/19/17 08:35; Start 03/15/17 at 09:00; Stop 03/19/17 at 15:07; Status DC Sodium Chloride 50 ml @ As Directed STK-MED ONCE .ROUTE Last administered on 20:40; Start 03/15/17 at 20:23; Stop 03/15/17 at 20:24; Status DC Trazodone HCl (Desyrel) 50 mg PRN QHS PRN PO INSOMNIA, MAY REPEAT X1 Last administered on 03/16/17 00:41; Start 03/15/17 at 20:45; Stop 03/16/17 at 20:19; Status DC Trazodone HCl (Desyrel) 100 mg PRN QHS PRN PO INSOMNIA, MAY REPEAT X1 Last administered on 03/19/17 20:24; Start 03/16/17 at 20:30 Risperidone (RisperDAL) 0.5 mg QHS PO Last administered on 03/16/17 20:35; Start 03/16/17 at 21:00; Stop 03/17/17 at 19:10; Status DC Risperidone (RisperDAL) 1 mg QHS PO Last administered on 03/17/17 20:15; Start 03/17/17 at 21:00; Stop 03/18/17 at 19:00; Status DC Alprazolam (Xanax) 0.5 mg PRN Q4HRS PRN PO ANXIETY / AGITATION Last administered on 03/19/17 08:34; Start 03/17/17 at 19:15; Stop 03/19/17 at 15:08; Status DC Risperidone (RisperDAL) 2 mg HS PO Last administered on 03/18/17 19:37; Start 03/18/17 at 21:00; Stop 03/19/17 at 19:53; Status DC Sodium Chloride 500 ml @ As Directed STK-MED ONCE .ROUTE ; Start 03/19/17 at 14: 21; Stop 03/19/17 at 14:22; Status DC Alprazolam (Xanax) 0.5 mg PRN Q8HRS PRN PO ANXIETY / AGITATION; Start 03/19/17 at 15:15 Risperidone (RisperDAL) 3 mg HS PO Last administered on 03/19/17 20:24; Start 03/19/17 at 21:00 Active Scripts Active Xarelto (Rivaroxaban) 20 Mg Tablet 20 Mg PO DAILYWSUP Reported Gabapentin 600 Mg Tablet 600 Mg PO TID [place] Carbonate 300 Mg Tablet 300 Mg PO BID Pantoprazole Sodium 40 Mg Tablet.dr 40 Mg PO BID Doc-Q-Lace (Docusate Sodium) 100 Mg Capsule 100 Mg PO BID Donepezil Hcl 10 Mg Tablet 10 Mg PO HS Lisinopril-Hctz 20-12.5 Mg Tab (Lisinopril/Hydrochlorothiazide) 1 Each Tablet 1 Tab PO DAILY Rozerem (Ramelteon) 8 Mg Tablet 8 Mg PO HS PRN Trintellix (Vortioxetine Hydrobromide) 10 Mg Tablet 10 Mg PO DAILY Potassium Chloride 10 Meq Tablet.er 10 Meq PO DAILYWBKFT Diltiazem 24Hr ER (Diltiazem HCl) 240 Mg Tab.er.24h 240 Mg PO DAILY Atorvastatin Calcium 20 Mg Tablet 20 Mg PO QHS NOT GIVEN IN THE HOSPITAL NEXT DOSE DUE: DATE: RESTART TODAY TIME: AT BEDTIME Levothyroxine Sodium 25 Mcg Tablet 1 Tab PO DAILY07 LAST DOSE GIVEN: DATE:TODAY TIME: BEFORE BREAKFAST NEXT DOSE DUE: DATE: TOMORROW TIME: BEFORE BREAKFAST Singulair Tablet (Montelukast Sodium) 10 Mg Tablet 10 Mg PO HS NOT GIVEN IN HOSPITAL NEXT DOSE DUE: DATE: RESTART TODAY TIME: AT BEDTIME Diagnosis: Problems: (1) Bipolar affective disorder (2) Delusional disorder (3) Anxiety disorder (4) Bipolar affective, mixed, sev w/ psych EULALIA NANCE MD Mar 19, 2017 20:26
--- NOTE | 2017-03-19 20:37 | PN ---
DATE: This note covers elements, not covered in my initial note of 03/18/2017. Discussed with nursing staff this morning and also with SERAFIN Tan this afternoon in an attempt to transfer the patient [facility]. She is extremely psychotic. Not agreeing to come to the [facility] and we have been unable to get a hold of her ex- who might have been able to convince her. We are trying to find a psychiatric inpatient placement for her and reportedly Sujey ____ has made calls to several facilities with no success so far. This evening, I have also left a voicemail for Dr. Calabrese on his cell phone to see if he would accept the patient on the Psychiatry service at [facility] and Sujey ____ will contact Dr. Calabrese tomorrow. In the meantime, the patient has been quite psychotic, disorganized, paranoid, having sleep and appetite changes. MENTAL STATUS EXAM: I met with her in her room. She is quite suspicious, paranoid, talking about someone looking at her, and that she has been talking to someone, but there is no one in her room. She has been wandering into other patient's rooms. Nursing staff put alarm on her door to alert them when she does this. Thoughts have thought blocking, speech often responses monosyllabic, low in volume, association loose, abstraction fair, computation impaired, language function intact. Attention span short. Difficult to assess orientation, but she is oriented to herself, difficult to assess other aspects of orientation. IMPRESSION: Bipolar 1 disorder, mixed with psychotic features. History of major depressive disorder; anxiety disorder, unspecified. [place] level is 0.6. PLAN: Continue lithium 300 mg twice a day, increase Risperdal from 1 mg at bedtime to 2 mg at bedtime. She is also on Xanax p.r.n., trazodone 100 at bedtime p.r.n., may repeat x 1. Transfer to inpatient psych unit whenever arranged or to our unit. She and her ex- consented. MAN Chantell NANCE MD DR: ELLIS/fernando JOB#: [id number] / [id number]
[2017-03-19 23:54] VITALS: BP 106/70
[2017-03-20 06:08] VITALS: BP 101/61
[2017-03-20] MEDS: LEVOTHYROXINE 25 MCG TABLET. PO SCH (06:10)
[2017-03-20 08:35] LABS: BASO # 0.1 x10^3/uL (0.0-0.2); BASO % 0 % (0-3); EOS % 0 % (0-3); HEMATOCRIT 44.9 % (36.0-47.0); HEMOGLOBIN 14.7 g/dL (12.0-15.5); LYMPH # 1.9 x10^3/uL (1.0-4.8); LYMPH % 11 % (24-48); MEAN CORPUSCULAR HEMOGLOBIN 31 pg (25-35); MEAN CORPUSCULAR HGB CONC 33 g/dL (31-37); MEAN CORPUSCULAR VOLUME 96 fL (79-100); MONO # 0.8 x10^3/uL (0.0-1.1); MONO % 5 % (0-9); NEUT # 14.2 x10^3uL (1.8-7.7); NEUT % 84 % (31-73); PLATELET COUNT 304 x10^3/uL (140-400); RED BLOOD COUNT 4.69 x10^6/uL (3.50-5.40); RED CELL DISTRIBUTION WIDTH 13.8 % (11.5-14.5)
[2017-03-20] MEDS: PANTOPRAZOLE 40 MG TABLET. PO SCH ×2 (08:48→21:58)
[2017-03-20] MEDS: POTASSIUM CHLORIDE 10 MEQ TABLET.ER. PO SCH (08:48)
[2017-03-20] MEDS: DOCUSATE SODIUM 100 MG CAPSULE PO SCH ×2 (08:48→21:56)
[2017-03-20] MEDS: METOPROLOL TART IMMED RELEASE 25 MG TABLET PO SCH ×2 (08:48→21:00)
[2017-03-20] MEDS: LITHIUM CARBONATE 300 MG TABLET PO SCH (08:48)
[2017-03-20 09:01] LABS: ALBUMIN 4.1 g/dL (3.4-5.0); ALBUMIN/GLOBULIN RATIO 1.2 (1.0-1.7); CALCIUM 9.8 mg/dL (8.5-10.1); CREATININE 3.7 mg/dL (0.6-1.0); GFR 12.3; MAGNESIUM 2.4 mg/dL (1.8-2.4); POTASSIUM 3.9 mmol/L (3.5-5.1); TOTAL BILIRUBIN 0.6 mg/dL (0.2-1.0); TOTAL PROTEIN 7.4 g/dL (6.4-8.2)
[2017-03-20 09:10] LABS: % BANDS 1 % (0-9); % LYMPHS 11 % (24-48); % MONOS 3 % (0-10); % SEGS 85 % (35-66)
[2017-03-20 09:11] LABS: PLT ESTIMATE ADEQUATE (ADEQUATE); TOXIC GRANULATION SLIGHT; TOXIC VACUOLATION SLIGHT
[2017-03-20] MEDS: IV NORMAL SALINE 1,000ML 1,000 ML IV SCH ×3 (10:15→23:35)
[2017-03-20] MEDS ORDERED: IV NORMAL SALINE 1,000ML 1,000 ML IV ONE (10:15)
[2017-03-20 10:23] VITALS: BP 90/63
[2017-03-20 11:14] LABS: BILIRUBIN,URINE NEG (NEG); CLARITY,URINE CLOUDY; COLOR,URINE YELLOW; GLUCOSE,URINE NEG (NEG)
[2017-03-20 11:15] LABS: BACTERIA,URINE MOD /HPF (0-FEW); GRANULAR CASTS,URINE OCC /HPF; HYALINE CASTS, URINE MANY /HPF; NITRITE,URINE NEG (NEG); SQUAMOUS EPITHELIAL CELL,UR MOD /LPF; UROBILINOGEN,URINE 0.2 mg/dL (0.2 mg/dL)
--- NOTE | 2017-03-20 12:04 | RAD ---
Portable chest, 03/20/2017: History: Cough, leukocytosis Comparison is made to a study from 03/14/2017. The heart size and pulmonary vascularity are normal. A density at the cardiac apex probably represents a prominent epicardial fat pad. No acute infiltrate is seen. No pleural fluid is evident. There is a surgical plate and screws in the lower cervical spine. IMPRESSION: No acute cardiopulmonary abnormality is detected.
[2017-03-20] MEDS ORDERED: ALPRAZolam 0.25 MG TABLET PO PRN (12:45)
[2017-03-20] MEDS: cefTRIAXone IM 1 GM VIAL IM ONE ×2 (13:07→13:15)
[2017-03-20 14:41] VITALS: BP 103/67
[2017-03-20] MEDS: RIVAROXABAN 15 MG TABLET. PO SCH (18:07)
[2017-03-20 19:52] VITALS: BP 96/63
[2017-03-20] MEDS: risperiDONE 1 MG TABLET. PO SCH (21:00)
--- NOTE | 2017-03-20 21:12 | PN ---
DATE: 03/19/2017 The patient was seen on rounds the evening of 03/19/2017. This late entry 03/19/2017 covers elements, not covered in my initial note of 03/19/2017. I had previously talked to Pam, the RN, morning of 03/19/2017, and also to Sujey Méndez, morning of 03/19/2017, to help assist transfer to [facility] with Dr. Calabrese. In case cell phone for Dr. Calabrese to facilitate this. The patient slept little better previous evening, remained psychotic, disorganized, confused. REVIEW OF SYSTEMS: No CV, , pulmonary, eye system symptoms on review. Reliability poor. MENTAL STATUS EXAM: Oriented to herself. Insight, judgment, memory is impaired. Associations loose, most of her verbal responses are nonsensical. No active suicidal or homicidal ideation. CT head, mild atrophy, otherwise unremarkable. IMPRESSION: Bipolar 1 disorder, mixed with psychotic features; delirium, unspecified; possible major neurocognitive disorder; Alzheimer vascular with delusions; rest unchanged. PLAN: The patient's lithium level is 0.6. She is on Risperdal 2 mg at bedtime, remains psychotic. We will increase it to 3 mg p.o. at bedtime. Continue lithium at current dosage 300 b.i.d., increase Risperdal to 3 mg at bedtime, Xanax as a p.r.n., but causes hypotension. Blood pressure should be checked before administrating it. She is on the waiting list for [place] and was #4 to the [facility]. MAN Chantell NANCE MD DR: ELLIS/fernando JOB#: [id number] / [id number]
--- NOTE | 2017-03-20 21:16 | PDOC ---
Exam Dixon Demential Exam: Dixon Note: Please also refer to the separate dictated note~for this date of service dictated separately.~Patient seen individually. Discussed the patient with Nursing staff reviewed the chart.~Reviewed interim history and current functioning. Reviewed vital signs,~Labs/ Radiology~and current medications noted below. Continue current treatment with the changes noted in the dictated addendum note Assessment: Vital Signs: Vital Signs Date Time Temp Pulse Resp B/P (MAP) Pulse Ox O2 Delivery O2 Flow Rate FiO2 03/20/17 19:52 98.9 74 20 96/63 (74) 96 Room Air I&O Intake and Output 03/21/17 07:00 Intake Total 2781 ml Output Total 1900 ml Balance 881 ml Intake Oral 1800 ml IV Total 981 ml Output Urine Total 1900 ml # Voids 1 # Bowel Movements 1 Labs: Laboratory Tests Test 03/20/17 08:28 03/20/17 10:40 03/20/17 14:00 White Blood Count 17.0 x10^3/uL (4.0-11.0) H Red Blood Count 4.69 x10^6/uL (3.50-5.40) Hemoglobin 14.7 g/dL (12.0-15.5) Hematocrit 44.9 % (36.0-47.0) Mean Corpuscular Volume 96 fL (79-100) Mean Corpuscular Hemoglobin 31 pg (25-35) Mean Corpuscular Hemoglobin Concent 33 g/dL (31-37) Red Cell Distribution Width 13.8 % (11.5-14.5) Platelet Count 304 x10^3/uL (140-400) Neutrophils (%) (Auto) 84 % (31-73) H Lymphocytes (%) (Auto) 11 % (24-48) L Monocytes (%) (Auto) 5 % (0-9) Eosinophils (%) (Auto) 0 % (0-3) Basophils (%) (Auto) 0 % (0-3) Neutrophils # (Auto) 14.2 x10^3uL (1.8-7.7) H Lymphocytes # (Auto) 1.9 x10^3/uL (1.0-4.8) Monocytes # (Auto) 0.8 x10^3/uL (0.0-1.1) Eosinophils # (Auto) 0.0 x10^3/uL (0.0-0.7) Basophils # (Auto) 0.1 x10^3/uL (0.0-0.2) Segmented Neutrophils % 85 % (35-66) H Band Neutrophils % 1 % (0-9) Lymphocytes % 11 % (24-48) L Monocytes % 3 % (0-10) Toxic Granulation Slight Toxic Vacuolation Slight Platelet Estimate Adequate (ADEQUATE) Sodium Level 137 mmol/L (136-145) Potassium Level 3.9 mmol/L (3.5-5.1) Chloride Level 104 mmol/L (98-107) Carbon Dioxide Level 23 mmol/L (21-32) Anion Gap 10 (6-14) Blood Urea Nitrogen 45 mg/dL (7-20) H Creatinine 3.7 mg/dL (0.6-1.0) H Estimated GFR (Cockcroft-Gault) 12.3 BUN/Creatinine Ratio 12 (6-20) Glucose Level 132 mg/dL (70-99) H Calcium Level 9.8 mg/dL (8.5-10.1) Magnesium Level 2.4 mg/dL (1.8-2.4) Total Bilirubin 0.6 mg/dL (0.2-1.0) Aspartate Amino Transferase (AST) 34 U/L (15-37) Alanine Aminotransferase (ALT) 61 U/L (14-59) H Alkaline Phosphatase 129 U/L (46-116) H Ammonia < 10 mcmol/L (11-34) L Creatine Kinase 169 U/L (26-192) Total Protein 7.4 g/dL (6.4-8.2) Albumin 4.1 g/dL (3.4-5.0) Albumin/Globulin Ratio 1.2 (1.0-1.7) Urine Collection Type Unknown Urine Color Yellow Urine Clarity Cloudy Urine pH 5.0 Urine Specific [place] 1.010 Urine Protein Trace (NEG-TRACE) Urine Glucose (UA) Neg mg/dL (NEG) Urine Ketones (Stick) Neg mg/dL (NEG) Urine Blood Trace (NEG) Urine Nitrite Neg (NEG) Urine Bilirubin Neg (NEG) Urine Urobilinogen Dipstick 0.2 mg/dL (0.2 mg/dL) Urine Leukocyte Esterase Trace (NEG) Urine RBC 6-10 /HPF (0-2) Urine WBC 11-20 /HPF (0-4) Urine Squamous Epithelial Cells Mod /LPF Urine Bacteria Mod /HPF (0-FEW) Urine Hyaline Casts Many /HPF Urine Granular Casts Occ /HPF Urine Mucus Slight /LPF Lactic Acid Level 1.6 mmol/L (0.4-2.0) Current Medications: Meds: Current Medications Sodium Chloride 1,000 ml @ 100 mls/hr Q10H IV Last administered on 03/14/17 23 :32; Start 03/14/17 at 23:30; Stop 03/15/17 at 09:30; Status DC Ceftriaxone Sodium 1 gm/ Sodium Chloride 50 ml @ 100 mls/hr 1X ONCE IV Last administered on 03/15/17 00:14; Start 03/15/17 at 00:15; Stop 03/15/17 at 00:44; Status DC Sodium Chloride 50 ml @ As Directed STK-MED ONCE .ROUTE ; Start 03/15/17 at 00:04 ; Stop 03/15/17 at 00:05; Status DC Ceftriaxone Sodium (Rocephin) 1 gm STK-MED ONCE IV ; Start 03/15/17 at 00:04; Stop 03/15/17 at 00:05; Status DC Ceftriaxone Sodium 1 gm/ Sodium Chloride 50 ml @ 100 mls/hr QHS IV Last administered on 03/16/17 20:34; Start 03/15/17 at 21:00; Stop 03/17/17 at 10:20; Status DC Aspirin (Jayant Aspirin) 325 mg DAILY PO Last administered on 03/16/17 09:00; Start 03/15/17 at 09:00; Stop 03/17/17 at 10:18; Status DC Lorazepam (Ativan) 1 mg 1X PRN PRN PO Agitation Last administered on 03/15/17 08:51; Start 03/15/17 at 02:30; Stop 03/15/17 at 13:49; Status DC Lorazepam (Ativan) 1 mg 1X ONCE PO Last administered on 03/15/17 02:45; Start 03/15/17 at 02:45; Stop 03/15/17 at 13:49; Status DC Aspirin (Jayant Aspirin) 325 mg 1X ONCE PO Last administered on 03/15/17 02:45 ; Start 03/15/17 at 02:45; Stop 03/15/17 at 02:46; Status DC Atorvastatin Calcium (Lipitor) 20 mg QHS PO Last administered on 03/19/17 20:24 ; Start 03/15/17 at 21:00 Docusate Sodium (Colace) 100 mg BID PO Last administered on 03/17/17 20:15; Start 03/15/17 at 09:00 Donepezil HCl (Aricept) 10 mg HS PO ; Start 03/15/17 at 21:00; Stop 03/15/17 at 21 :00; Status DC Levothyroxine Sodium (Synthroid) 25 mcg DAILY07 PO Last administered on 06:10; Start 03/16/17 at 07:00 Montelukast Sodium (Singulair) 10 mg HS PO Last administered on 03/19/17 20:24 ; Start 03/15/17 at 21:00 Pantoprazole Sodium (Protonix) 40 mg BID PO Last administered on 03/20/17 08:48 ; Start 03/15/17 at 09:00 Ramelteon (Rozerem) 8 mg PRN QHS PRN PO INSOMNIA; Start 03/15/17 at 07:15; Stop 03/15/17 at 13:49; Status DC Diltiazem HCl (Cardizem 24hr Cd) 240 mg DAILY PO Last administered on 03/19/17 08:35; Start 03/15/17 at 09:00; Stop 03/20/17 at 08:11; Status DC Gabapentin (Neurontin) 600 mg TID PO Last administered on 03/15/17 08:52; Start 03/15/17 at 09:00; Stop 03/15/17 at 13:49; Status DC Lisinopril (Prinivil) 20 mg DAILY PO Last administered on 03/19/17 08:35; Start 03/15/17 at 09:00; Stop 03/19/17 at 15:07; Status DC [place] Carbonate 300 mg BID PO Last administered on 03/20/17 08:48; Start 03/15 at 09:00; Status Future hold Potassium Chloride (Klor-Con) 10 meq DAILYWBKFT PO Last administered on 08:48; Start 03/15/17 at 08:00 Rivaroxaban (Xarelto) 20 mg DAILYWSUP PO Last administered on 03/18/17 17:09; Start 03/15/17 at 17:00; Stop 03/20/17 at 11:31; Status DC Non-Formulary Medication 10 mg DAILY PO ; Start 03/15/17 at 09:00; Stop 03/17/17 at 10:19; Status DC Hydrochlorothiazide (Microzide) 12.5 mg DAILY PO Last administered on 03/19/17 08:35; Start 03/15/17 at 09:00; Stop 03/19/17 at 15:07; Status DC Sodium Chloride 50 ml @ As Directed STK-MED ONCE .ROUTE Last administered on 20:40; Start 03/15/17 at 20:23; Stop 03/15/17 at 20:24; Status DC Trazodone HCl (Desyrel) 50 mg PRN QHS PRN PO INSOMNIA, MAY REPEAT X1 Last administered on 03/16/17 00:41; Start 03/15/17 at 20:45; Stop 03/16/17 at 20:19; Status DC Trazodone HCl (Desyrel) 100 mg PRN QHS PRN PO INSOMNIA, MAY REPEAT X1 Last administered on 03/19/17 20:24; Start 03/16/17 at 20:30 Risperidone (RisperDAL) 0.5 mg QHS PO Last administered on 03/16/17 20:35; Start 03/16/17 at 21:00; Stop 03/17/17 at 19:10; Status DC Risperidone (RisperDAL) 1 mg QHS PO Last administered on 03/17/17 20:15; Start 03/17/17 at 21:00; Stop 03/18/17 at 19:00; Status DC Alprazolam (Xanax) 0.5 mg PRN Q4HRS PRN PO ANXIETY / AGITATION Last administered on 03/19/17 08:34; Start 03/17/17 at 19:15; Stop 03/19/17 at 15:08; Status DC Risperidone (RisperDAL) 2 mg HS PO Last administered on 03/18/17 19:37; Start 03/18/17 at 21:00; Stop 03/19/17 at 19:53; Status DC Sodium Chloride 500 ml @ As Directed STK-MED ONCE .ROUTE ; Start 03/19/17 at 14: 21; Stop 03/19/17 at 14:22; Status DC Alprazolam (Xanax) 0.5 mg PRN Q8HRS PRN PO ANXIETY / AGITATION; Start 03/19/17 at 15:15; Stop 03/20/17 at 12:33; Status DC Risperidone (RisperDAL) 3 mg HS PO Last administered on 03/19/17 20:24; Start 03/19/17 at 21:00 Diltiazem HCl (Cardizem 24hr Cd) 120 mg DAILY PO ; Start 03/21/17 at 09:00 Metoprolol Tartrate (Lopressor) 12.5 mg BID PO Last administered on 03/20/17 08 :48; Start 03/20/17 at 09:00 Sodium Chloride 1,000 ml @ 150 mls/hr Q6H40M IV Last administered on 03/20/17 18:07; Start 03/20/17 at 10:15 Sodium Chloride 1,000 ml @ 1,000 mls/hr 1X ONCE IV Last administered on 14:11; Start 03/20/17 at 10:15; Stop 03/20/17 at 11:14; Status DC Ceftriaxone Sodium 1 gm/ Sodium Chloride 50 ml @ 100 mls/hr Q24H IV ; Start 03/20/17 at 10:00 Rivaroxaban (Xarelto) 15 mg DAILYWSUP PO Last administered on 03/20/17 18:07; Start 03/20/17 at 17:00 Ceftriaxone Sodium (Rocephin Im) 1 gm 1X ONCE IM Last administered on 13:15; Start 03/20/17 at 12:15; Stop 03/20/17 at 12:16; Status DC Alprazolam (Xanax) 0.25 mg PRN Q8HRS PRN PO ANXIETY / AGITATION; Start 03/20/17 at 12:45; Stop 03/20/17 at 14:30; Status DC Active Scripts Active Xarelto (Rivaroxaban) 20 Mg Tablet 20 Mg PO DAILYWSUP Reported Gabapentin 600 Mg Tablet 600 Mg PO TID [place] Carbonate 300 Mg Tablet 300 Mg PO BID Pantoprazole Sodium 40 Mg Tablet.dr 40 Mg PO BID Doc-Q-Lace (Docusate Sodium) 100 Mg Capsule 100 Mg PO BID Donepezil Hcl 10 Mg Tablet 10 Mg PO HS Lisinopril-Hctz 20-12.5 Mg Tab (Lisinopril/Hydrochlorothiazide) 1 Each Tablet 1 Tab PO DAILY Rozerem (Ramelteon) 8 Mg Tablet 8 Mg PO HS PRN Trintellix (Vortioxetine Hydrobromide) 10 Mg Tablet 10 Mg PO DAILY Potassium Chloride 10 Meq Tablet.er 10 Meq PO DAILYWBKFT Diltiazem 24Hr ER (Diltiazem HCl) 240 Mg Tab.er.24h 240 Mg PO DAILY Atorvastatin Calcium 20 Mg Tablet 20 Mg PO QHS NOT GIVEN IN THE HOSPITAL NEXT DOSE DUE: DATE: RESTART TODAY TIME: AT BEDTIME Levothyroxine Sodium 25 Mcg Tablet 1 Tab PO DAILY07 LAST DOSE GIVEN: DATE:TODAY TIME: BEFORE BREAKFAST NEXT DOSE DUE: DATE: TOMORROW TIME: BEFORE BREAKFAST Singulair Tablet (Montelukast Sodium) 10 Mg Tablet 10 Mg PO HS NOT GIVEN IN HOSPITAL NEXT DOSE DUE: DATE: RESTART TODAY TIME: AT BEDTIME Diagnosis: Problems: (1) Bipolar affective, mixed, sev w/ psych (2) Impulse control disorder (3) Anxiety disorder (4) Dementia, vascular, with delusions (5) Delusional disorder EULALIA NANCE MD Mar 20, 2017 21:16
[2017-03-20] MEDS: ATORVASTATIN CALCIUM 20 MG TABLET PO SCH (21:57)
[2017-03-20] MEDS: MONTELUKAST 10 MG TABLET. PO SCH (21:57)
--- NOTE | 2017-03-20 22:08 | PN ---
DATE: 03/20/2017 The latest on the waiting list to go to [place]. However, blood work today shows her to be in acute renal failure. Review of her chart reveals that she has not been taking adequate amount of fluid. She received a lot of Xanax early on due to her restlessness and agitation, this made her very sedated and she went 3 days without very much to eat or drink at all. She has been seen by Dr. Brown and actually is much less psychotic this morning and her Risperdal has been increased to 3 mg last night. I have had to cut down on her blood pressure medicine as she has been hypotensive and took a fair amount of p.o. fluids yesterday afternoon bringing her blood pressure up a little bit; however, she is still on her hypertensive medication. She does not have a DPOA and so was not able to go [facility]. OBJECTIVE: VITAL SIGNS: Blood pressure is 90/63, pulse 91, respirations 20, pulse ox is 97% on room air, temperature is 97.6. GENERAL: She is more alert and less psychotic. She is answering questions, is complaining of a little left back pain. HEENT: Tongue is dry. NECK: Supple. LUNGS: Clear. CARDIOVASCULAR: Mildly tachycardic. ABDOMEN: Soft. She is a little bit tender on the left side, little bit of left flank pain, slightly tender over the bladder. EXTREMITIES: Without edema. Chest x-ray is negative. LABORATORY DATA: Urine: She has 6-10 red cells, 11-20 white cells. She does have squamous epithelial cells, but her BUN is 45 and creatinine is 3.7, two days ago it was 16 and 0.9. ASSESSMENT: 1. Acute renal failure due to volume depletion. 2. Hypotension. 3. Urinary tract infection. 4. Leukocytosis. Waiting for lactic acid, maybe septic. 5. Psychotic, disorder, delusional disorder, anxiety disorder and bipolar affective mixed and with psychosis. 6. Severe depression. PLAN: We have to cancel the admission to [place], she needs IV fluids, IV antibiotics and minimal use of Xanax for any behaviors, seems like the Risperdal is helping. We will continue to monitor. SHALOM RUIZ DO DR: Markus JOB#: [id number] / [id number]
--- NOTE | 2017-03-20 22:59 | PDOC ---
Exam Dixon Demential Exam: Dixon Note: Please also refer to the separate dictated note~for this date of service dictated separately.~Patient seen individually. Discussed the patient with Nursing staff reviewed the chart.~Reviewed interim history and current functioning. Reviewed vital signs,~Labs/ Radiology~and current medications noted below. Continue current treatment with the changes noted in the dictated addendum note Assessment: Vital Signs: Vital Signs Date Time Temp Pulse Resp B/P (MAP) Pulse Ox O2 Delivery O2 Flow Rate FiO2 03/20/17 21:00 74 96/63 03/20/17 19:52 98.9 20 96 Room Air I&O Intake and Output 03/21/17 07:00 Intake Total 2781 ml Output Total 1900 ml Balance 881 ml Intake Oral 1800 ml IV Total 981 ml Output Urine Total 1900 ml # Voids 1 # Bowel Movements 1 Labs: Laboratory Tests Test 03/20/17 08:28 03/20/17 10:40 03/20/17 14:00 White Blood Count 17.0 x10^3/uL (4.0-11.0) H Red Blood Count 4.69 x10^6/uL (3.50-5.40) Hemoglobin 14.7 g/dL (12.0-15.5) Hematocrit 44.9 % (36.0-47.0) Mean Corpuscular Volume 96 fL (79-100) Mean Corpuscular Hemoglobin 31 pg (25-35) Mean Corpuscular Hemoglobin Concent 33 g/dL (31-37) Red Cell Distribution Width 13.8 % (11.5-14.5) Platelet Count 304 x10^3/uL (140-400) Neutrophils (%) (Auto) 84 % (31-73) H Lymphocytes (%) (Auto) 11 % (24-48) L Monocytes (%) (Auto) 5 % (0-9) Eosinophils (%) (Auto) 0 % (0-3) Basophils (%) (Auto) 0 % (0-3) Neutrophils # (Auto) 14.2 x10^3uL (1.8-7.7) H Lymphocytes # (Auto) 1.9 x10^3/uL (1.0-4.8) Monocytes # (Auto) 0.8 x10^3/uL (0.0-1.1) Eosinophils # (Auto) 0.0 x10^3/uL (0.0-0.7) Basophils # (Auto) 0.1 x10^3/uL (0.0-0.2) Segmented Neutrophils % 85 % (35-66) H Band Neutrophils % 1 % (0-9) Lymphocytes % 11 % (24-48) L Monocytes % 3 % (0-10) Toxic Granulation Slight Toxic Vacuolation Slight Platelet Estimate Adequate (ADEQUATE) Sodium Level 137 mmol/L (136-145) Potassium Level 3.9 mmol/L (3.5-5.1) Chloride Level 104 mmol/L (98-107) Carbon Dioxide Level 23 mmol/L (21-32) Anion Gap 10 (6-14) Blood Urea Nitrogen 45 mg/dL (7-20) H Creatinine 3.7 mg/dL (0.6-1.0) H Estimated GFR (Cockcroft-Gault) 12.3 BUN/Creatinine Ratio 12 (6-20) Glucose Level 132 mg/dL (70-99) H Calcium Level 9.8 mg/dL (8.5-10.1) Magnesium Level 2.4 mg/dL (1.8-2.4) Total Bilirubin 0.6 mg/dL (0.2-1.0) Aspartate Amino Transferase (AST) 34 U/L (15-37) Alanine Aminotransferase (ALT) 61 U/L (14-59) H Alkaline Phosphatase 129 U/L (46-116) H Ammonia < 10 mcmol/L (11-34) L Creatine Kinase 169 U/L (26-192) Total Protein 7.4 g/dL (6.4-8.2) Albumin 4.1 g/dL (3.4-5.0) Albumin/Globulin Ratio 1.2 (1.0-1.7) Urine Collection Type Unknown Urine Color Yellow Urine Clarity Cloudy Urine pH 5.0 Urine Specific [place] 1.010 Urine Protein Trace (NEG-TRACE) Urine Glucose (UA) Neg mg/dL (NEG) Urine Ketones (Stick) Neg mg/dL (NEG) Urine Blood Trace (NEG) Urine Nitrite Neg (NEG) Urine Bilirubin Neg (NEG) Urine Urobilinogen Dipstick 0.2 mg/dL (0.2 mg/dL) Urine Leukocyte Esterase Trace (NEG) Urine RBC 6-10 /HPF (0-2) Urine WBC 11-20 /HPF (0-4) Urine Squamous Epithelial Cells Mod /LPF Urine Bacteria Mod /HPF (0-FEW) Urine Hyaline Casts Many /HPF Urine Granular Casts Occ /HPF Urine Mucus Slight /LPF Lactic Acid Level 1.6 mmol/L (0.4-2.0) Current Medications: Meds: Current Medications Sodium Chloride 1,000 ml @ 100 mls/hr Q10H IV Last administered on 03/14/17 23 :32; Start 03/14/17 at 23:30; Stop 03/15/17 at 09:30; Status DC Ceftriaxone Sodium 1 gm/ Sodium Chloride 50 ml @ 100 mls/hr 1X ONCE IV Last administered on 03/15/17 00:14; Start 03/15/17 at 00:15; Stop 03/15/17 at 00:44; Status DC Sodium Chloride 50 ml @ As Directed STK-MED ONCE .ROUTE ; Start 03/15/17 at 00:04 ; Stop 03/15/17 at 00:05; Status DC Ceftriaxone Sodium (Rocephin) 1 gm STK-MED ONCE IV ; Start 03/15/17 at 00:04; Stop 03/15/17 at 00:05; Status DC Ceftriaxone Sodium 1 gm/ Sodium Chloride 50 ml @ 100 mls/hr QHS IV Last administered on 03/16/17 20:34; Start 03/15/17 at 21:00; Stop 03/17/17 at 10:20; Status DC Aspirin (Jayant Aspirin) 325 mg DAILY PO Last administered on 03/16/17 09:00; Start 03/15/17 at 09:00; Stop 03/17/17 at 10:18; Status DC Lorazepam (Ativan) 1 mg 1X PRN PRN PO Agitation Last administered on 03/15/17 08:51; Start 03/15/17 at 02:30; Stop 03/15/17 at 13:49; Status DC Lorazepam (Ativan) 1 mg 1X ONCE PO Last administered on 03/15/17 02:45; Start 03/15/17 at 02:45; Stop 03/15/17 at 13:49; Status DC Aspirin (Jayant Aspirin) 325 mg 1X ONCE PO Last administered on 03/15/17 02:45 ; Start 03/15/17 at 02:45; Stop 03/15/17 at 02:46; Status DC Atorvastatin Calcium (Lipitor) 20 mg QHS PO Last administered on 03/20/17 21:57 ; Start 03/15/17 at 21:00 Docusate Sodium (Colace) 100 mg BID PO Last administered on 03/20/17 21:56; Start 03/15/17 at 09:00 Donepezil HCl (Aricept) 10 mg HS PO ; Start 03/15/17 at 21:00; Stop 03/15/17 at 21 :00; Status DC Levothyroxine Sodium (Synthroid) 25 mcg DAILY07 PO Last administered on 06:10; Start 03/16/17 at 07:00 Montelukast Sodium (Singulair) 10 mg HS PO Last administered on 03/20/17 21:57 ; Start 03/15/17 at 21:00 Pantoprazole Sodium (Protonix) 40 mg BID PO Last administered on 03/20/17 21:58 ; Start 03/15/17 at 09:00 Ramelteon (Rozerem) 8 mg PRN QHS PRN PO INSOMNIA; Start 03/15/17 at 07:15; Stop 03/15/17 at 13:49; Status DC Diltiazem HCl (Cardizem 24hr Cd) 240 mg DAILY PO Last administered on 03/19/17 08:35; Start 03/15/17 at 09:00; Stop 03/20/17 at 08:11; Status DC Gabapentin (Neurontin) 600 mg TID PO Last administered on 03/15/17 08:52; Start 03/15/17 at 09:00; Stop 03/15/17 at 13:49; Status DC Lisinopril (Prinivil) 20 mg DAILY PO Last administered on 03/19/17 08:35; Start 03/15/17 at 09:00; Stop 03/19/17 at 15:07; Status DC [place] Carbonate 300 mg BID PO Last administered on 03/20/17 08:48; Start 03/15 at 09:00; Status Future hold Potassium Chloride (Klor-Con) 10 meq DAILYWBKFT PO Last administered on 08:48; Start 03/15/17 at 08:00 Rivaroxaban (Xarelto) 20 mg DAILYWSUP PO Last administered on 03/18/17 17:09; Start 03/15/17 at 17:00; Stop 03/20/17 at 11:31; Status DC Non-Formulary Medication 10 mg DAILY PO ; Start 03/15/17 at 09:00; Stop 03/17/17 at 10:19; Status DC Hydrochlorothiazide (Microzide) 12.5 mg DAILY PO Last administered on 03/19/17 08:35; Start 03/15/17 at 09:00; Stop 03/19/17 at 15:07; Status DC Sodium Chloride 50 ml @ As Directed STK-MED ONCE .ROUTE Last administered on 20:40; Start 03/15/17 at 20:23; Stop 03/15/17 at 20:24; Status DC Trazodone HCl (Desyrel) 50 mg PRN QHS PRN PO INSOMNIA, MAY REPEAT X1 Last administered on 03/16/17 00:41; Start 03/15/17 at 20:45; Stop 03/16/17 at 20:19; Status DC Trazodone HCl (Desyrel) 100 mg PRN QHS PRN PO INSOMNIA, MAY REPEAT X1 Last administered on 03/19/17 20:24; Start 03/16/17 at 20:30 Risperidone (RisperDAL) 0.5 mg QHS PO Last administered on 03/16/17 20:35; Start 03/16/17 at 21:00; Stop 03/17/17 at 19:10; Status DC Risperidone (RisperDAL) 1 mg QHS PO Last administered on 03/17/17 20:15; Start 03/17/17 at 21:00; Stop 03/18/17 at 19:00; Status DC Alprazolam (Xanax) 0.5 mg PRN Q4HRS PRN PO ANXIETY / AGITATION Last administered on 03/19/17 08:34; Start 03/17/17 at 19:15; Stop 03/19/17 at 15:08; Status DC Risperidone (RisperDAL) 2 mg HS PO Last administered on 03/18/17 19:37; Start 03/18/17 at 21:00; Stop 03/19/17 at 19:53; Status DC Sodium Chloride 500 ml @ As Directed STK-MED ONCE .ROUTE ; Start 03/19/17 at 14: 21; Stop 03/19/17 at 14:22; Status DC Alprazolam (Xanax) 0.5 mg PRN Q8HRS PRN PO ANXIETY / AGITATION; Start 03/19/17 at 15:15; Stop 03/20/17 at 12:33; Status DC Risperidone (RisperDAL) 3 mg HS PO Last administered on 03/20/17 21:00; Start 03/19/17 at 21:00 Diltiazem HCl (Cardizem 24hr Cd) 120 mg DAILY PO ; Start 03/21/17 at 09:00 Metoprolol Tartrate (Lopressor) 12.5 mg BID PO Last administered on 03/20/17 08 :48; Start 03/20/17 at 09:00 Sodium Chloride 1,000 ml @ 150 mls/hr Q6H40M IV Last administered on 03/20/17 18:07; Start 03/20/17 at 10:15 Sodium Chloride 1,000 ml @ 1,000 mls/hr 1X ONCE IV Last administered on 14:11; Start 03/20/17 at 10:15; Stop 03/20/17 at 11:14; Status DC Ceftriaxone Sodium 1 gm/ Sodium Chloride 50 ml @ 100 mls/hr Q24H IV ; Start 03/20/17 at 10:00 Rivaroxaban (Xarelto) 15 mg DAILYWSUP PO Last administered on 03/20/17 18:07; Start 03/20/17 at 17:00 Ceftriaxone Sodium (Rocephin Im) 1 gm 1X ONCE IM Last administered on 13:15; Start 03/20/17 at 12:15; Stop 03/20/17 at 12:16; Status DC Alprazolam (Xanax) 0.25 mg PRN Q8HRS PRN PO ANXIETY / AGITATION; Start 03/20/17 at 12:45; Stop 03/20/17 at 14:30; Status DC Active Scripts Active Xarelto (Rivaroxaban) 20 Mg Tablet 20 Mg PO DAILYWSUP Reported Gabapentin 600 Mg Tablet 600 Mg PO TID [place] Carbonate 300 Mg Tablet 300 Mg PO BID Pantoprazole Sodium 40 Mg Tablet.dr 40 Mg PO BID Doc-Q-Lace (Docusate Sodium) 100 Mg Capsule 100 Mg PO BID Donepezil Hcl 10 Mg Tablet 10 Mg PO HS Lisinopril-Hctz 20-12.5 Mg Tab (Lisinopril/Hydrochlorothiazide) 1 Each Tablet 1 Tab PO DAILY Rozerem (Ramelteon) 8 Mg Tablet 8 Mg PO HS PRN Trintellix (Vortioxetine Hydrobromide) 10 Mg Tablet 10 Mg PO DAILY Potassium Chloride 10 Meq Tablet.er 10 Meq PO [id number] Diltiazem 24Hr ER (Diltiazem HCl) 240 Mg Tab.er.24h 240 Mg PO DAILY Atorvastatin Calcium 20 Mg Tablet 20 Mg PO QHS NOT GIVEN IN THE HOSPITAL NEXT DOSE DUE: DATE: RESTART TODAY TIME: AT BEDTIME Levothyroxine Sodium 25 Mcg Tablet 1 Tab PO DAILY07 LAST DOSE GIVEN: DATE:TODAY TIME: BEFORE BREAKFAST NEXT DOSE DUE: DATE: TOMORROW TIME: BEFORE BREAKFAST Singulair Tablet (Montelukast Sodium) 10 Mg Tablet 10 Mg PO HS NOT GIVEN IN HOSPITAL NEXT DOSE DUE: DATE: RESTART TODAY TIME: AT BEDTIME Diagnosis: Problems: (1) Bipolar affective disorder (2) Delusional disorder (3) Anxiety disorder (4) Bipolar affective, mixed, sev w/ psych (5) Dementia, vascular, with depression (6) Dementia, vascular, with delusions (7) Anxiety disorder (8) Impulse control disorder (9) Bipolar affective, mixed, sev w/ psych (10) Mental status change EULALIA NANCE MD Mar 20, 2017 22:59
[2017-03-21] VITALS (9 sets, daily range): BP systolic 120–166; BP diastolic 75–104
--- NOTE | 2017-03-21 04:35 | PN ---
DATE: 03/20/2017 PSYCHIATRIC PROGRESS NOTE The patient was seen on rounds the evening of 03/20/2017. This note covers elements not covered in my initial note of 03/20/2017. Discussed with nursing staff, reviewed the chart. According to nursing staff, the patient is doing somewhat better today. She is being slightly less psychotic, but Xanax was discontinued since her creatinine is elevated. WBCs were elevated. UA was contaminated. She received Rocephin. Transfer to the [facility] was postponed due to her medical deterioration. REVIEW OF SYSTEMS: No CV, , pulmonary, eye system symptoms on review, not very verbally interactive. MENTAL STATUS EXAM: Still just oriented to herself. Speech difficult to understand. Associations loose. Insight limited. Judgment marginal. Language function intact. Mood and affect remain somewhat labile, still psychotic, but perhaps a little bit on the Risperdal 3 mg. LABORATORY DATA: Reviewed. IMPRESSION: Unchanged from initial note. PLAN: Continue current psychotropics. [place] level is 0.6. Maintain lithium carbonate 300 b.i.d., Risperdal 3 mg at bedtime, Xanax has been discontinued. Make further adjustments as clinically indicated. MAN Chantell NANCE MD DR: ELLIS/fernando JOB#: [id number] / [id number]
[2017-03-21 05:11] LABS: BASO # 0.1 x10^3/uL (0.0-0.2); BASO % 1 % (0-3); EOS % 0 % (0-3); HEMATOCRIT 42.2 % (36.0-47.0); HEMOGLOBIN 14.2 g/dL (12.0-15.5); LYMPH # 1.4 x10^3/uL (1.0-4.8); LYMPH % 13 % (24-48); MEAN CORPUSCULAR HEMOGLOBIN 32 pg (25-35); MEAN CORPUSCULAR HGB CONC 34 g/dL (31-37); MEAN CORPUSCULAR VOLUME 94 fL (79-100); MONO # 0.6 x10^3/uL (0.0-1.1); MONO % 6 % (0-9); NEUT # 8.2 x10^3uL (1.8-7.7); NEUT % 80 % (31-73); PLATELET COUNT 261 x10^3/uL (140-400); RED BLOOD COUNT 4.48 x10^6/uL (3.50-5.40); RED CELL DISTRIBUTION WIDTH 13.3 % (11.5-14.5); WHITE BLOOD COUNT 10.2 x10^3/uL (4.0-11.0)
[2017-03-21 05:23] LABS: ALBUMIN 3.6 g/dL (3.4-5.0); ALBUMIN/GLOBULIN RATIO 1.1 (1.0-1.7); CALCIUM 9.4 mg/dL (8.5-10.1); CREATININE 1.4 mg/dL (0.6-1.0); GFR 37.7; MAGNESIUM 2.2 mg/dL (1.8-2.4); POTASSIUM 4.5 mmol/L (3.5-5.1); TOTAL BILIRUBIN 0.5 mg/dL (0.2-1.0)
[2017-03-21] MEDS: IV NORMAL SALINE 1,000ML 1,000 ML IV SCH ×2 (05:43→08:19)
[2017-03-21] MEDS: LEVOTHYROXINE 25 MCG TABLET. PO SCH (05:44)
[2017-03-21] MEDS: METOPROLOL TART IMMED RELEASE 25 MG TABLET PO SCH ×2 (08:11→19:41)
[2017-03-21] MEDS: POTASSIUM CHLORIDE 10 MEQ TABLET.ER. PO SCH (08:11)
[2017-03-21] MEDS: PANTOPRAZOLE 40 MG TABLET. PO SCH ×2 (08:11→19:40)
[2017-03-21] MEDS: ACETAMINOPHEN 500 MG TABLET PO PRN (08:11)
[2017-03-21] MEDS: DOCUSATE SODIUM 100 MG CAPSULE PO SCH ×2 (08:12→19:47)
[2017-03-21] MEDS: LITHIUM CARBONATE 300 MG TABLET PO SCH ×2 (09:25→19:41)
--- NOTE | 2017-03-21 14:43 | PDOC ---
SUBJECTIVE: REMAINS PSYCHOTIC AND DELUSIONALBUT A LITTLE BIT BETTER ON THE RISPERIDAL. ACUTE RENAL FAILURE HAS RESOLVED. SHE RECEIVED SEVERAL DOSES OF PRN XANAX AND THAT ALONG WITH HER PSYCHOSIS CAUSED A TWO DAY PERIOD OF POOR PO FLUID INTAKE. SHE RECEIVED IV FLUIDS AND HER LABS ARE CLOSE TO NORMAL. POSSIBLE UTI-CULTURE PENDING. TODAY IS FIXATED THAT HER EXHUSBAND HAS HER KEYS TO HER APARTMENT AND IS STEALING FROM HER BANK ACCOUNT. OBJECTIVE: Problems: Problems Problems: (1) Bipolar affective disorder (2) Delusional disorder (3) Anxiety disorder (4) Bipolar affective, mixed, sev w/ psych (5) Dementia, vascular, with depression (6) Dementia, vascular, with delusions (7) Anxiety disorder (8) Impulse control disorder (9) Bipolar affective, mixed, sev w/ psych (10) Mental status change 11.. Acute renal failure due to volume depletion.-RESOLVED WITH IV FLUIDS 12. Hypotension-RESOLVED, BP MEDS ADJUSTED 3. Urinary tract infection. 4. Leukocytosis-NORMALIZED 5. Psychotic, disorder, delusional disorder, anxiety disorder and bipolar affective mixed and with psychosis. 6. Severe depression. MORE ALERT, COLOR IMPROVED, TONGUE MOIST, THROAT CLEAR, LUNGS CLEAR, CVRRR, ABDOMEN MILDLY PROTUBERANT, BS POSITIVE , NON TENDER EXTREMETIES WITHOUT EDEMA Vital Signs: Vital Signs Date Time Temp Pulse Resp B/P (MAP) Pulse Ox O2 Delivery O2 Flow Rate FiO2 03/21/17 11:06 98.9 97 22 138/85 (102) 97 Room Air I & O Intake and Output 03/22/17 07:00 Intake Total 2450 ml Output Total 900 ml Balance 1550 ml Intake Oral 1500 ml IV Total 950 ml Output Urine Total 900 ml # Voids 2 # Bowel Movements 2 Labs: Laboratory Tests Test 03/20/17 08:28 03/20/17 10:40 03/20/17 14:00 03/21/17 05:05 White Blood Count 17.0 x10^3/uL (4.0-11.0) 10.2 x10^3/uL (4.0-11.0) Red Blood Count 4.69 x10^6/uL (3.50-5.40) 4.48 x10^6/uL (3.50-5.40) Hemoglobin 14.7 g/dL (12.0-15.5) 14.2 g/dL (12.0-15.5) Hematocrit 44.9 % (36.0-47.0) 42.2 % (36.0-47.0) Mean Corpuscular Volume 96 fL (79-100) 94 fL (79-100) Mean Corpuscular Hemoglobin 31 pg (25-35) 32 pg (25-35) Mean Corpuscular Hemoglobin Concent 33 g/dL (31-37) 34 g/dL (31-37) Red Cell Distribution Width 13.8 % (11.5-14.5) 13.3 % (11.5-14.5) Platelet Count 304 x10^3/uL (140-400) 261 x10^3/uL (140-400) Neutrophils (%) (Auto) 84 % (31-73) 80 % (31-73) Lymphocytes (%) (Auto) 11 % (24-48) 13 % (24-48) Monocytes (%) (Auto) 5 % (0-9) 6 % (0-9) Eosinophils (%) (Auto) 0 % (0-3) 0 % (0-3) Basophils (%) (Auto) 0 % (0-3) 1 % (0-3) Neutrophils # (Auto) 14.2 x10^3uL (1.8-7.7) 8.2 x10^3uL (1.8-7.7) Lymphocytes # (Auto) 1.9 x10^3/uL (1.0-4.8) 1.4 x10^3/uL (1.0-4.8) Monocytes # (Auto) 0.8 x10^3/uL (0.0-1.1) 0.6 x10^3/uL (0.0-1.1) Eosinophils # (Auto) 0.0 x10^3/uL (0.0-0.7) 0.0 x10^3/uL (0.0-0.7) Basophils # (Auto) 0.1 x10^3/uL (0.0-0.2) 0.1 x10^3/uL (0.0-0.2) Segmented Neutrophils % 85 % (35-66) Band Neutrophils % 1 % (0-9) Lymphocytes % 11 % (24-48) Monocytes % 3 % (0-10) Toxic Granulation Slight Toxic Vacuolation Slight Platelet Estimate Adequate (ADEQUATE) Sodium Level 137 mmol/L (136-145) 149 mmol/L (136-145) Potassium Level 3.9 mmol/L (3.5-5.1) 4.5 mmol/L (3.5-5.1) Chloride Level 104 mmol/L (98-107) 117 mmol/L (98-107) Carbon Dioxide Level 23 mmol/L (21-32) 26 mmol/L (21-32) Anion Gap 10 (6-14) 6 (6-14) Blood Urea Nitrogen 45 mg/dL (7-20) 25 mg/dL (7-20) Creatinine 3.7 mg/dL (0.6-1.0) 1.4 mg/dL (0.6-1.0) Estimated GFR (Cockcroft-Gault) 12.3 37.7 BUN/Creatinine Ratio 12 (6-20) 18 (6-20) Glucose Level 132 mg/dL (70-99) 121 mg/dL (70-99) Calcium Level 9.8 mg/dL (8.5-10.1) 9.4 mg/dL (8.5-10.1) Magnesium Level 2.4 mg/dL (1.8-2.4) 2.2 mg/dL (1.8-2.4) Total Bilirubin 0.6 mg/dL (0.2-1.0) 0.5 mg/dL (0.2-1.0) Aspartate Amino Transf (AST/SGOT) 34 U/L (15-37) 39 U/L (15-37) Alanine Aminotransferase (ALT/SGPT) 61 U/L (14-59) 64 U/L (14-59) Alkaline Phosphatase 129 U/L (46-116) 126 U/L (46-116) Ammonia < 10 mcmol/L (11-34) Creatine Kinase 169 U/L (26-192) Total Protein 7.4 g/dL (6.4-8.2) 7.0 g/dL (6.4-8.2) Albumin 4.1 g/dL (3.4-5.0) 3.6 g/dL (3.4-5.0) Albumin/Globulin Ratio 1.2 (1.0-1.7) 1.1 (1.0-1.7) Urine Collection Type Unknown Urine Color Yellow Urine Clarity Cloudy Urine pH 5.0 Urine Specific [place] 1.010 Urine Protein Trace (NEG-TRACE) Urine Glucose (UA) Neg mg/dL (NEG) Urine Ketones (Stick) Neg mg/dL (NEG) Urine Blood Trace (NEG) Urine Nitrite Neg (NEG) Urine Bilirubin Neg (NEG) Urine Urobilinogen Dipstick 0.2 mg/dL (0.2 mg/dL) Urine Leukocyte Esterase Trace (NEG) Urine RBC 6-10 /HPF (0-2) Urine WBC 11-20 /HPF (0-4) Urine Squamous Epithelial Cells Mod /LPF Urine Bacteria Mod /HPF (0-FEW) Urine Hyaline Casts Many /HPF Urine Granular Casts Occ /HPF Urine Mucus Slight /LPF Lactic Acid Level 1.6 mmol/L (0.4-2.0) Physical Exam: SEE OBJECTIVE ASSESSMENT: ms: (1) Bipolar affective disorder (2) Delusional disorder (3) Anxiety disorder (4) Bipolar affective, mixed, sev w/ psych (5) Dementia, vascular, with depression (6) Dementia, vascular, with delusions (7) Anxiety disorder (8) Impulse control disorder (9) Bipolar affective, mixed, sev w/ psych (10) Mental status change 11.. Acute renal failure due to volume depletion.-RESOLVED WITH IV FLUIDS 12. Hypotension-RESOLVED, BP MEDS ADJUSTED 3. Urinary tract infection. 4. Leukocytosis-NORMALIZED 5. Psychotic, disorder, delusional disorder, anxiety disorder and bipolar affective mixed and with psychosis. 6. Severe depression. PLAN: IS MEDICALLY CLEARED TO GO TO AN INPATIENT PSYCH FACILITY. SHE REMAINS PSYCHOTIC AND DELUSIONAL AND IS IN DESPERATE NEED OF PSYCHIATRIC INTERVENTION. SHALOM RUIZ DO Mar 21, 2017 14:43
[2017-03-21] MEDS ORDERED: FOSFOMYCIN TROMETHAMINE 3 GM PACKET PO ONE (15:00)
[2017-03-21] MEDS: RIVAROXABAN 15 MG TABLET. PO SCH (17:33)
--- NOTE | 2017-03-21 17:33 | PDOC ---
Exam Dixon Demential Exam: Dixon Note: Please also refer to the separate dictated note~for this date of service dictated separately.~Patient seen individually. Discussed the patient with Nursing staff reviewed the chart.~Reviewed interim history and current functioning. Reviewed vital signs,~Labs/ Radiology~and current medications noted below. Continue current treatment with the changes noted in the dictated addendum note Assessment: Vital Signs: Vital Signs Date Time Temp Pulse Resp B/P (MAP) Pulse Ox O2 Delivery O2 Flow Rate FiO2 03/21/17 15:10 98.4 03/21/17 14:30 93 18 127/80 (96) 98 Room Air I&O Intake and Output 03/22/17 07:01 Intake Total 3256 ml Output Total 900 ml Balance 2356 ml Intake Oral 1500 ml IV Total 1756 ml Output Urine Total 900 ml # Voids 2 # Bowel Movements 2 Labs: Laboratory Tests Test 03/21/17 05:05 White Blood Count 10.2 x10^3/uL (4.0-11.0) Red Blood Count 4.48 x10^6/uL (3.50-5.40) Hemoglobin 14.2 g/dL (12.0-15.5) Hematocrit 42.2 % (36.0-47.0) Mean Corpuscular Volume 94 fL (79-100) Mean Corpuscular Hemoglobin 32 pg (25-35) Mean Corpuscular Hemoglobin Concent 34 g/dL (31-37) Red Cell Distribution Width 13.3 % (11.5-14.5) Platelet Count 261 x10^3/uL (140-400) Neutrophils (%) (Auto) 80 % (31-73) H Lymphocytes (%) (Auto) 13 % (24-48) L Monocytes (%) (Auto) 6 % (0-9) Eosinophils (%) (Auto) 0 % (0-3) Basophils (%) (Auto) 1 % (0-3) Neutrophils # (Auto) 8.2 x10^3uL (1.8-7.7) H Lymphocytes # (Auto) 1.4 x10^3/uL (1.0-4.8) Monocytes # (Auto) 0.6 x10^3/uL (0.0-1.1) Eosinophils # (Auto) 0.0 x10^3/uL (0.0-0.7) Basophils # (Auto) 0.1 x10^3/uL (0.0-0.2) Sodium Level 149 mmol/L (136-145) H Potassium Level 4.5 mmol/L (3.5-5.1) Chloride Level 117 mmol/L (98-107) H Carbon Dioxide Level 26 mmol/L (21-32) Anion Gap 6 (6-14) Blood Urea Nitrogen 25 mg/dL (7-20) H Creatinine 1.4 mg/dL (0.6-1.0) H Estimated GFR (Cockcroft-Gault) 37.7 BUN/Creatinine Ratio 18 (6-20) Glucose Level 121 mg/dL (70-99) H Calcium Level 9.4 mg/dL (8.5-10.1) Magnesium Level 2.2 mg/dL (1.8-2.4) Total Bilirubin 0.5 mg/dL (0.2-1.0) Aspartate Amino Transferase (AST) 39 U/L (15-37) H Alanine Aminotransferase (ALT) 64 U/L (14-59) H Alkaline Phosphatase 126 U/L (46-116) H Total Protein 7.0 g/dL (6.4-8.2) Albumin 3.6 g/dL (3.4-5.0) Albumin/Globulin Ratio 1.1 (1.0-1.7) Current Medications: Meds: Current Medications Sodium Chloride 1,000 ml @ 100 mls/hr Q10H IV Last administered on 03/14/17 23 :32; Start 03/14/17 at 23:30; Stop 03/15/17 at 09:30; Status DC Ceftriaxone Sodium 1 gm/ Sodium Chloride 50 ml @ 100 mls/hr 1X ONCE IV Last administered on 03/15/17 00:14; Start 03/15/17 at 00:15; Stop 03/15/17 at 00:44; Status DC Sodium Chloride 50 ml @ As Directed STK-MED ONCE .ROUTE ; Start 03/15/17 at 00:04 ; Stop 03/15/17 at 00:05; Status DC Ceftriaxone Sodium (Rocephin) 1 gm STK-MED ONCE IV ; Start 03/15/17 at 00:04; Stop 03/15/17 at 00:05; Status DC Ceftriaxone Sodium 1 gm/ Sodium Chloride 50 ml @ 100 mls/hr QHS IV Last administered on 03/16/17 20:34; Start 03/15/17 at 21:00; Stop 03/17/17 at 10:20; Status DC Aspirin (Jayant Aspirin) 325 mg DAILY PO Last administered on 03/16/17 09:00; Start 03/15/17 at 09:00; Stop 03/17/17 at 10:18; Status DC Lorazepam (Ativan) 1 mg 1X PRN PRN PO Agitation Last administered on 03/15/17 08:51; Start 03/15/17 at 02:30; Stop 03/15/17 at 13:49; Status DC Lorazepam (Ativan) 1 mg 1X ONCE PO Last administered on 03/15/17 02:45; Start 03/15/17 at 02:45; Stop 03/15/17 at 13:49; Status DC Aspirin (Andel Aspirin) 325 mg 1X ONCE PO Last administered on 03/15/17 02:45 ; Start 03/15/17 at 02:45; Stop 03/15/17 at 02:46; Status DC Atorvastatin Calcium (Lipitor) 20 mg QHS PO Last administered on 03/20/17 21:57 ; Start 03/15/17 at 21:00 Docusate Sodium (Colace) 100 mg BID PO Last administered on 03/21/17 08:12; Start 03/15/17 at 09:00 Donepezil HCl (Aricept) 10 mg HS PO ; Start 03/15/17 at 21:00; Stop 03/15/17 at 21 :00; Status DC Levothyroxine Sodium (Synthroid) 25 mcg DAILY07 PO Last administered on 05:44; Start 03/16/17 at 07:00 Montelukast Sodium (Singulair) 10 mg HS PO Last administered on 03/20/17 21:57 ; Start 03/15/17 at 21:00 Pantoprazole Sodium (Protonix) 40 mg BID PO Last administered on 03/21/17 08: 11; Start 03/15/17 at 09:00 Ramelteon (Rozerem) 8 mg PRN QHS PRN PO INSOMNIA; Start 03/15/17 at 07:15; Stop 03/15/17 at 13:49; Status DC Diltiazem HCl (Cardizem 24hr Cd) 240 mg DAILY PO Last administered on 03/19/17 08:35; Start 03/15/17 at 09:00; Stop 03/20/17 at 08:11; Status DC Gabapentin (Neurontin) 600 mg TID PO Last administered on 03/15/17 08:52; Start 03/15/17 at 09:00; Stop 03/15/17 at 13:49; Status DC Lisinopril (Prinivil) 20 mg DAILY PO Last administered on 03/19/17 08:35; Start 03/15/17 at 09:00; Stop 03/19/17 at 15:07; Status DC [place] Carbonate 300 mg BID PO Last administered on 03/21/17 09:25; Start 03/15/17 at 09:00; Status Future hold Potassium Chloride (Klor-Con) 10 meq DAILYWBKFT PO Last administered on 08:11; Start 03/15/17 at 08:00 Rivaroxaban (Xarelto) 20 mg DAILYWSUP PO Last administered on 03/18/17 17:09; Start 03/15/17 at 17:00; Stop 03/20/17 at 11:31; Status DC Non-Formulary Medication 10 mg DAILY PO ; Start 03/15/17 at 09:00; Stop 03/17/17 at 10:19; Status DC Hydrochlorothiazide (Microzide) 12.5 mg DAILY PO Last administered on 03/19/17 08:35; Start 03/15/17 at 09:00; Stop 03/19/17 at 15:07; Status DC Sodium Chloride 50 ml @ As Directed STK-MED ONCE .ROUTE Last administered on 20:40; Start 03/15/17 at 20:23; Stop 03/15/17 at 20:24; Status DC Trazodone HCl (Desyrel) 50 mg PRN QHS PRN PO INSOMNIA, MAY REPEAT X1 Last administered on 03/16/17 00:41; Start 03/15/17 at 20:45; Stop 03/16/17 at 20:19; Status DC Trazodone HCl (Desyrel) 100 mg PRN QHS PRN PO INSOMNIA, MAY REPEAT X1 Last administered on 03/19/17 20:24; Start 03/16/17 at 20:30 Risperidone (RisperDAL) 0.5 mg QHS PO Last administered on 03/16/17 20:35; Start 03/16/17 at 21:00; Stop 03/17/17 at 19:10; Status DC Risperidone (RisperDAL) 1 mg QHS PO Last administered on 03/17/17 20:15; Start 03/17/17 at 21:00; Stop 03/18/17 at 19:00; Status DC Alprazolam (Xanax) 0.5 mg PRN Q4HRS PRN PO ANXIETY / AGITATION Last administered on 03/19/17 08:34; Start 03/17/17 at 19:15; Stop 03/19/17 at 15:08; Status DC Risperidone (RisperDAL) 2 mg HS PO Last administered on 03/18/17 19:37; Start 03/18/17 at 21:00; Stop 03/19/17 at 19:53; Status DC Sodium Chloride 500 ml @ As Directed STK-MED ONCE .ROUTE ; Start 03/19/17 at 14: 21; Stop 03/19/17 at 14:22; Status DC Alprazolam (Xanax) 0.5 mg PRN Q8HRS PRN PO ANXIETY / AGITATION; Start 03/19/17 at 15:15; Stop 03/20/17 at 12:33; Status DC Risperidone (RisperDAL) 3 mg HS PO Last administered on 03/20/17 21:00; Start 03/19/17 at 21:00 Diltiazem HCl (Cardizem 24hr Cd) 120 mg DAILY PO Last administered on 08:12; Start 03/21/17 at 09:00 Metoprolol Tartrate (Lopressor) 12.5 mg BID PO Last administered on 03/21/17 08:11; Start 03/20/17 at 09:00 Sodium Chloride 1,000 ml @ 125 mls/hr Q8H IV Last administered on 03/21/17 08 :19; Start 03/20/17 at 10:15; Stop 03/21/17 at 14:44; Status DC Sodium Chloride 1,000 ml @ 1,000 mls/hr 1X ONCE IV Last administered on 14:11; Start 03/20/17 at 10:15; Stop 03/20/17 at 11:14; Status DC Ceftriaxone Sodium 1 gm/ Sodium Chloride 50 ml @ 100 mls/hr Q24H IV Last administered on 03/21/17 09:27; Start 03/20/17 at 10:00; Stop 03/21/17 at 14:44 ; Status DC Rivaroxaban (Xarelto) 15 mg DAILYWSUP PO Last administered on 03/20/17 18:07; Start 03/20/17 at 17:00 Ceftriaxone Sodium (Rocephin Im) 1 gm 1X ONCE IM Last administered on 13:15; Start 03/20/17 at 12:15; Stop 03/20/17 at 12:16; Status DC Alprazolam (Xanax) 0.25 mg PRN Q8HRS PRN PO ANXIETY / AGITATION; Start 03/20/17 at 12:45; Stop 03/20/17 at 14:30; Status DC Acetaminophen (Tylenol) 500 mg PRN Q6HRS PRN PO PAIN / TEMP Last administered on 03/21/17 08:11; Start 03/21/17 at 08:00 Fosfomycin Tromethamine (Monurol) 3 gm 1X ONCE PO ; Start 03/21/17 at 15:00; Stop 03/21/17 at 15:01; Status DC Active Scripts Active Xarelto (Rivaroxaban) 20 Mg Tablet 20 Mg PO DAILYWSUP Reported Gabapentin 600 Mg Tablet 600 Mg PO TID [place] Carbonate 300 Mg Tablet 300 Mg PO BID Pantoprazole Sodium 40 Mg Tablet.dr 40 Mg PO BID Doc-Q-Lace (Docusate Sodium) 100 Mg Capsule 100 Mg PO BID Donepezil Hcl 10 Mg Tablet 10 Mg PO HS Lisinopril-Hctz 20-12.5 Mg Tab (Lisinopril/Hydrochlorothiazide) 1 Each Tablet 1 Tab PO DAILY Rozerem (Ramelteon) 8 Mg Tablet 8 Mg PO HS PRN Trintellix (Vortioxetine Hydrobromide) 10 Mg Tablet 10 Mg PO DAILY Potassium Chloride 10 Meq Tablet.er 10 Meq PO DAILYWBKFT Diltiazem 24Hr ER (Diltiazem HCl) 240 Mg Tab.er.24h 240 Mg PO DAILY Atorvastatin Calcium 20 Mg Tablet 20 Mg PO QHS NOT GIVEN IN THE HOSPITAL NEXT DOSE DUE: DATE: RESTART TODAY TIME: AT BEDTIME Levothyroxine Sodium 25 Mcg Tablet 1 Tab PO DAILY07 LAST DOSE GIVEN: DATE:TODAY TIME: BEFORE BREAKFAST NEXT DOSE DUE: DATE: TOMORROW TIME: BEFORE BREAKFAST Singulair Tablet (Montelukast Sodium) 10 Mg Tablet 10 Mg PO HS NOT GIVEN IN HOSPITAL NEXT DOSE DUE: DATE: RESTART TODAY TIME: AT BEDTIME Diagnosis: Problems: (1) Bipolar affective, mixed, sev w/ psych (2) Impulse control disorder (3) Anxiety disorder (4) Delusional disorder EULALIA NANCE MD Mar 21, 2017 17:33
[2017-03-21] MEDS: LABETALOL 20 MG/4 ML DISP.SYRIN. IVP ONE ×2 (18:24→18:30)
[2017-03-21] MEDS: LISINOPRIL 20 MG TABLET PO SCH (18:44)
[2017-03-21] MEDS: hydroCHLOROthiazide 12.5 MG CAPSULE PO SCH (18:44)
[2017-03-21] MEDS: traZODone 100 MG TABLET. PO PRN (19:40)
[2017-03-21] MEDS: ATORVASTATIN CALCIUM 20 MG TABLET PO SCH (19:40)
[2017-03-21] MEDS: risperiDONE 1 MG TABLET. PO SCH (19:41)
[2017-03-21] MEDS: MONTELUKAST 10 MG TABLET. PO SCH (19:41)
[2017-03-22 00:44] VITALS: BP 123/77
--- NOTE | 2017-03-22 01:25 | PN ---
DATE: 03/21/2017 This note covers elements not covered in my initial note of 03/21/2017. SUBJECTIVE: The patient was seen individually in the evening of 03/21/2017. Discussed with Dr. Hall and nursing staff. Overall, the patient is spiking blood pressure this evening and still remains psychotic, disorganized. [facility] will not take her till she is deemed medically stable, which is not quite there. REVIEW OF SYSTEMS: Ambulation impaired. No CV, , pulmonary, eye system symptoms on review. MENTAL STATUS EXAM: Oriented to herself. Insight, judgment, recent and remote memory, attention, concentration, fund of knowledge poor, consistent with her diagnosis. IMPRESSION: Bipolar 1 disorder, mixed with psychotic features; cognitive disorder, unspecified versus mild cognitive impairment, anxiety disorder, unspecified; impulse control disorder, unspecified. PLAN: Continue Risperdal 3 mg p.o. at bedtime, lithium carbonate at current dosage, level therapeutic at 0.6. Once the patient is medically stabilized, we will transfer her to [facility]. She does not have a DPOA and is quite confused, not to be able to sign for herself. We will have her ex- consent to this transfer even though he is not legal power of assistant city attorney. The patient does need ongoing psychiatric care. She certainly cannot function outside the hospital and setting unless she is psychiatrically stabilized and if need be, we will present the information to the court. We will have social service staff coordinate all of this from the [facility]. I have also discussed with Angie Wells on this. She is still psychotic, paranoid, confused. No active suicidal or homicidal ideation. Labs reviewed. IMPRESSION: Bipolar 1 disorder, mixed with psychotic features, mild cognitive impairment versus major neurocognitive disorder, Alzheimer, vascular with depression, psychotic features. PLAN: Continue current psychotropics, stabilize medically then transfer to the [facility]. EULALIA NANCE MD DR: ELLIS/fernando JOB#: [id number] / [id number]
[2017-03-22] MEDS: LEVOTHYROXINE 25 MCG TABLET. PO SCH (05:31)
[2017-03-22 05:42] VITALS: BP 135/72
[2017-03-22] MEDS: hydroCHLOROthiazide 12.5 MG CAPSULE PO SCH (08:09)
[2017-03-22] MEDS: PANTOPRAZOLE 40 MG TABLET. PO SCH ×2 (08:09→21:13)
[2017-03-22] MEDS: LISINOPRIL 20 MG TABLET PO SCH (08:09)
[2017-03-22] MEDS: POTASSIUM CHLORIDE 10 MEQ TABLET.ER. PO SCH (08:09)
[2017-03-22] MEDS: METOPROLOL TART IMMED RELEASE 25 MG TABLET PO SCH ×2 (08:10→21:13)
[2017-03-22] MEDS: LITHIUM CARBONATE 300 MG TABLET PO SCH ×2 (08:12→21:13)
[2017-03-22] MEDS: DOCUSATE SODIUM 100 MG CAPSULE PO SCH ×2 (08:26→21:00)
[2017-03-22 11:07] LABS: BASO # 0.1 x10^3/uL (0.0-0.2); BASO % 1 % (0-3); EOS # 0.1 x10^3/uL (0.0-0.7); EOS % 1 % (0-3); HEMATOCRIT 41.4 % (36.0-47.0); HEMOGLOBIN 13.9 g/dL (12.0-15.5); LYMPH % 14 % (24-48); MEAN CORPUSCULAR HEMOGLOBIN 32 pg (25-35); MEAN CORPUSCULAR HGB CONC 34 g/dL (31-37); MEAN CORPUSCULAR VOLUME 94 fL (79-100); MONO % 7 % (0-9); NEUT % 78 % (31-73); PLATELET COUNT 294 x10^3/uL (140-400); RED BLOOD COUNT 4.42 x10^6/uL (3.50-5.40); RED CELL DISTRIBUTION WIDTH 13.4 % (11.5-14.5); WHITE BLOOD COUNT 14.1 x10^3/uL (4.0-11.0)
[2017-03-22 11:36] LABS: ALBUMIN 3.7 g/dL (3.4-5.0); ALBUMIN/GLOBULIN RATIO 1.1 (1.0-1.7); CALCIUM 9.8 mg/dL (8.5-10.1); CREATININE 1.3 mg/dL (0.6-1.0); GFR 41.1; POTASSIUM 4.1 mmol/L (3.5-5.1); TOTAL BILIRUBIN 0.5 mg/dL (0.2-1.0); TOTAL PROTEIN 7.1 g/dL (6.4-8.2)
[2017-03-22 12:21] LABS: % LYMPHS 18 % (24-48); % MONOS 6 % (0-10); % SEGS 76 % (35-66); PLT ESTIMATE ADEQUATE (ADEQUATE)
[2017-03-22 12:22] LABS: POLYCHROMASIA SLIGHT; TOXIC GRANULATION SLIGHT
[2017-03-22 16:11] VITALS: BP 122/79
[2017-03-22] MEDS: RIVAROXABAN 15 MG TABLET. PO SCH (17:02)
--- NOTE | 2017-03-22 19:14 | EKG ---
[address] [id number] Test Date: 2017-03-22 Test Time: 18:37:57 Pat Name: PORTIA MERINO Department: Room: 124 A Gender: F [employer]: : [id number] Requested By: KRISTOFER NAJERA Order Number: [id number] Reading MD: Oscar Whelan Measurements Intervals [place] Rate: 99 P: 46 CT: 156 QRS: 9 QRSD: 76 T: 68 QT: 338 QTc: 439 Interpretive Statements SINUS RHYTHM Electronically Signed On 03-29-2017 10:06:31 CDT by Oscar Whelan
[2017-03-22 19:18] VITALS: BP 130/75
[2017-03-22] MEDS: MONTELUKAST 10 MG TABLET. PO SCH (21:12)
[2017-03-22] MEDS: ATORVASTATIN CALCIUM 20 MG TABLET PO SCH (21:13)
[2017-03-22] MEDS: risperiDONE 1 MG TABLET. PO SCH (21:14)
[2017-03-22 21:25] VITALS: BP 117/70
--- NOTE | 2017-03-22 21:48 | PDOC ---
Exam Dixon Demential Exam: Dixon Note: Please also refer to the separate dictated note~for this date of service dictated separately.~Patient seen individually. Discussed the patient with Nursing staff reviewed the chart.~Reviewed interim history and current functioning. Reviewed vital signs,~Labs/ Radiology~and current medications noted below. Continue current treatment with the changes noted in the dictated addendum note Assessment: Vital Signs: Vital Signs Date Time Temp Pulse Resp B/P (MAP) Pulse Ox O2 Delivery O2 Flow Rate FiO2 03/22/17 21:25 97.4 120 24 117/70 (86) 99 Room Air I&O Intake and Output 03/23/17 07:00 Intake Total 790 ml Output Total 400 ml Balance 390 ml Intake Oral 790 ml Output Urine Total 400 ml # Bowel Movements 1 Labs: Laboratory Tests Test 03/22/17 09:50 White Blood Count 14.1 x10^3/uL (4.0-11.0) H Red Blood Count 4.42 x10^6/uL (3.50-5.40) Hemoglobin 13.9 g/dL (12.0-15.5) Hematocrit 41.4 % (36.0-47.0) Mean Corpuscular Volume 94 fL (79-100) Mean Corpuscular Hemoglobin 32 pg (25-35) Mean Corpuscular Hemoglobin Concent 34 g/dL (31-37) Red Cell Distribution Width 13.4 % (11.5-14.5) Platelet Count 294 x10^3/uL (140-400) Neutrophils (%) (Auto) 78 % (31-73) H Lymphocytes (%) (Auto) 14 % (24-48) L Monocytes (%) (Auto) 7 % (0-9) Eosinophils (%) (Auto) 1 % (0-3) Basophils (%) (Auto) 1 % (0-3) Neutrophils # (Auto) 11.0 x10^3uL (1.8-7.7) H Lymphocytes # (Auto) 2.0 x10^3/uL (1.0-4.8) Monocytes # (Auto) 1.0 x10^3/uL (0.0-1.1) Eosinophils # (Auto) 0.1 x10^3/uL (0.0-0.7) Basophils # (Auto) 0.1 x10^3/uL (0.0-0.2) Segmented Neutrophils % 76 % (35-66) H Lymphocytes % 18 % (24-48) L Monocytes % 6 % (0-10) Toxic Granulation Slight Platelet Estimate Adequate (ADEQUATE) Large Platelets Occ Polychromasia Slight Sodium Level 140 mmol/L (136-145) Potassium Level 4.1 mmol/L (3.5-5.1) Chloride Level 108 mmol/L (98-107) H Carbon Dioxide Level 24 mmol/L (21-32) Anion Gap 8 (6-14) Blood Urea Nitrogen 19 mg/dL (7-20) Creatinine 1.3 mg/dL (0.6-1.0) H Estimated GFR (Cockcroft-Gault) 41.1 BUN/Creatinine Ratio 15 (6-20) Glucose Level 95 mg/dL (70-99) Calcium Level 9.8 mg/dL (8.5-10.1) Total Bilirubin 0.5 mg/dL (0.2-1.0) Aspartate Amino Transferase (AST) 38 U/L (15-37) H Alanine Aminotransferase (ALT) 70 U/L (14-59) H Alkaline Phosphatase 122 U/L (46-116) H Total Protein 7.1 g/dL (6.4-8.2) Albumin 3.7 g/dL (3.4-5.0) Albumin/Globulin Ratio 1.1 (1.0-1.7) Current Medications: Meds: Current Medications Sodium Chloride 1,000 ml @ 100 mls/hr Q10H IV Last administered on 03/14/17 23 :32; Start 03/14/17 at 23:30; Stop 03/15/17 at 09:30; Status DC Ceftriaxone Sodium 1 gm/ Sodium Chloride 50 ml @ 100 mls/hr 1X ONCE IV Last administered on 03/15/17 00:14; Start 03/15/17 at 00:15; Stop 03/15/17 at 00:44; Status DC Sodium Chloride 50 ml @ As Directed STK-MED ONCE .ROUTE ; Start 03/15/17 at 00:04 ; Stop 03/15/17 at 00:05; Status DC Ceftriaxone Sodium (Rocephin) 1 gm STK-MED ONCE IV ; Start 03/15/17 at 00:04; Stop 03/15/17 at 00:05; Status DC Ceftriaxone Sodium 1 gm/ Sodium Chloride 50 ml @ 100 mls/hr QHS IV Last administered on 03/16/17 20:34; Start 03/15/17 at 21:00; Stop 03/17/17 at 10:20; Status DC Aspirin (Jayant Aspirin) 325 mg DAILY PO Last administered on 03/16/17 09:00; Start 03/15/17 at 09:00; Stop 03/17/17 at 10:18; Status DC Lorazepam (Ativan) 1 mg 1X PRN PRN PO Agitation Last administered on 03/15/17 08:51; Start 03/15/17 at 02:30; Stop 03/15/17 at 13:49; Status DC Lorazepam (Ativan) 1 mg 1X ONCE PO Last administered on 03/15/17 02:45; Start 03/15/17 at 02:45; Stop 03/15/17 at 13:49; Status DC Aspirin (Jayant Aspirin) 325 mg 1X ONCE PO Last administered on 03/15/17 02:45 ; Start 03/15/17 at 02:45; Stop 03/15/17 at 02:46; Status DC Atorvastatin Calcium (Lipitor) 20 mg QHS PO Last administered on 03/22/17 21: 13; Start 03/15/17 at 21:00 Docusate Sodium (Colace) 100 mg BID PO Last administered on 03/21/17 08:12; Start 03/15/17 at 09:00 Donepezil HCl (Aricept) 10 mg HS PO ; Start 03/15/17 at 21:00; Stop 03/15/17 at 21 :00; Status DC Levothyroxine Sodium (Synthroid) 25 mcg DAILY07 PO Last administered on 05:31; Start 03/16/17 at 07:00 Montelukast Sodium (Singulair) 10 mg HS PO Last administered on 03/22/17 21:12 ; Start 03/15/17 at 21:00 Pantoprazole Sodium (Protonix) 40 mg BID PO Last administered on 03/22/17 21: 13; Start 03/15/17 at 09:00 Ramelteon (Rozerem) 8 mg PRN QHS PRN PO INSOMNIA; Start 03/15/17 at 07:15; Stop 03/15/17 at 13:49; Status DC Diltiazem HCl (Cardizem 24hr Cd) 240 mg DAILY PO Last administered on 03/19/17 08:35; Start 03/15/17 at 09:00; Stop 03/20/17 at 08:11; Status DC Gabapentin (Neurontin) 600 mg TID PO Last administered on 03/15/17 08:52; Start 03/15/17 at 09:00; Stop 03/15/17 at 13:49; Status DC Lisinopril (Prinivil) 20 mg DAILY PO Last administered on 03/19/17 08:35; Start 03/15/17 at 09:00; Stop 03/19/17 at 15:07; Status DC [place] Carbonate 300 mg BID PO Last administered on 03/22/17 21:13; Start 03/15/17 at 09:00; Status Future hold Potassium Chloride (Klor-Con) 10 meq DAILYWBKFT PO Last administered on 08:09; Start 03/15/17 at 08:00 Rivaroxaban (Xarelto) 20 mg DAILYWSUP PO Last administered on 03/18/17 17:09; Start 03/15/17 at 17:00; Stop 03/20/17 at 11:31; Status DC Non-Formulary Medication 10 mg DAILY PO ; Start 03/15/17 at 09:00; Stop 03/17/17 at 10:19; Status DC Hydrochlorothiazide (Microzide) 12.5 mg DAILY PO Last administered on 03/19/17 08:35; Start 03/15/17 at 09:00; Stop 03/19/17 at 15:07; Status DC Sodium Chloride 50 ml @ As Directed STK-MED ONCE .ROUTE Last administered on 20:40; Start 03/15/17 at 20:23; Stop 03/15/17 at 20:24; Status DC Trazodone HCl (Desyrel) 50 mg PRN QHS PRN PO INSOMNIA, MAY REPEAT X1 Last administered on 03/16/17 00:41; Start 03/15/17 at 20:45; Stop 03/16/17 at 20:19; Status DC Trazodone HCl (Desyrel) 100 mg PRN QHS PRN PO INSOMNIA, MAY REPEAT X1 Last administered on 03/21/17 19:40; Start 03/16/17 at 20:30 Risperidone (RisperDAL) 0.5 mg QHS PO Last administered on 03/16/17 20:35; Start 03/16/17 at 21:00; Stop 03/17/17 at 19:10; Status DC Risperidone (RisperDAL) 1 mg QHS PO Last administered on 03/17/17 20:15; Start 03/17/17 at 21:00; Stop 03/18/17 at 19:00; Status DC Alprazolam (Xanax) 0.5 mg PRN Q4HRS PRN PO ANXIETY / AGITATION Last administered on 03/19/17 08:34; Start 03/17/17 at 19:15; Stop 03/19/17 at 15:08; Status DC Risperidone (RisperDAL) 2 mg HS PO Last administered on 03/18/17 19:37; Start 03/18/17 at 21:00; Stop 03/19/17 at 19:53; Status DC Sodium Chloride 500 ml @ As Directed STK-MED ONCE .ROUTE ; Start 03/19/17 at 14: 21; Stop 03/19/17 at 14:22; Status DC Alprazolam (Xanax) 0.5 mg PRN Q8HRS PRN PO ANXIETY / AGITATION; Start 03/19/17 at 15:15; Stop 03/20/17 at 12:33; Status DC Risperidone (RisperDAL) 3 mg HS PO Last administered on 03/22/17 21:14; Start 03/19/17 at 21:00 Diltiazem HCl (Cardizem 24hr Cd) 120 mg DAILY PO Last administered on 08:12; Start 03/21/17 at 09:00; Stop 03/21/17 at 18:22; Status DC Metoprolol Tartrate (Lopressor) 12.5 mg BID PO Last administered on 03/22/17 21:13; Start 03/20/17 at 09:00 Sodium Chloride 1,000 ml @ 125 mls/hr Q8H IV Last administered on 03/21/17 08 :19; Start 03/20/17 at 10:15; Stop 03/21/17 at 14:44; Status DC Sodium Chloride 1,000 ml @ 1,000 mls/hr 1X ONCE IV Last administered on 14:11; Start 03/20/17 at 10:15; Stop 03/20/17 at 11:14; Status DC Ceftriaxone Sodium 1 gm/ Sodium Chloride 50 ml @ 100 mls/hr Q24H IV Last administered on 03/21/17 09:27; Start 03/20/17 at 10:00; Stop 03/21/17 at 14:44 ; Status DC Rivaroxaban (Xarelto) 15 mg DAILYWSUP PO Last administered on 03/22/17 17:02; Start 03/20/17 at 17:00 Ceftriaxone Sodium (Rocephin Im) 1 gm 1X ONCE IM Last administered on 13:15; Start 03/20/17 at 12:15; Stop 03/20/17 at 12:16; Status DC Alprazolam (Xanax) 0.25 mg PRN Q8HRS PRN PO ANXIETY / AGITATION; Start 03/20/17 at 12:45; Stop 03/20/17 at 14:30; Status DC Acetaminophen (Tylenol) 500 mg PRN Q6HRS PRN PO PAIN / TEMP Last administered on 03/21/17 08:11; Start 03/21/17 at 08:00 Fosfomycin Tromethamine (Monurol) 3 gm 1X ONCE PO Last administered on 17:33; Start 03/21/17 at 15:00; Stop 03/21/17 at 15:01; Status DC Lisinopril (Prinivil) 20 mg DAILY PO Last administered on 03/22/17 08:09; Start 03/21/17 at 18:30 Hydrochlorothiazide (Microzide) 12.5 mg DAILY PO Last administered on 08:09; Start 03/21/17 at 18:30 Labetalol HCl (Normodyne) 20 mg 1X ONCE IVP Last administered on 03/21/17 18: 30; Start 03/21/17 at 18:30; Stop 03/21/17 at 18:31; Status DC Diltiazem HCl (Cardizem 24hr Cd) 120 mg 1X ONCE PO Last administered on 18:44; Start 03/21/17 at 19:00; Stop 03/21/17 at 19:01; Status DC Diltiazem HCl (Cardizem 24hr Cd) 240 mg DAILY PO Last administered on 08:10; Start 03/22/17 at 09:00 Active Scripts Active Xarelto (Rivaroxaban) 20 Mg Tablet 20 Mg PO DAILYWSUP Reported Gabapentin 600 Mg Tablet 600 Mg PO TID [place] Carbonate 300 Mg Tablet 300 Mg PO BID Pantoprazole Sodium 40 Mg Tablet.dr 40 Mg PO BID Doc-Q-Lace (Docusate Sodium) 100 Mg Capsule 100 Mg PO BID Donepezil Hcl 10 Mg Tablet 10 Mg PO HS Lisinopril-Hctz 20-12.5 Mg Tab (Lisinopril/Hydrochlorothiazide) 1 Each Tablet 1 Tab PO DAILY Rozerem (Ramelteon) 8 Mg Tablet 8 Mg PO HS PRN Trintellix (Vortioxetine Hydrobromide) 10 Mg Tablet 10 Mg PO DAILY Potassium Chloride 10 Meq Tablet.er 10 Meq PO DAILYWBKFT Diltiazem 24Hr ER (Diltiazem HCl) 240 Mg Tab.er.24h 240 Mg PO DAILY Atorvastatin Calcium 20 Mg Tablet 20 Mg PO QHS NOT GIVEN IN THE HOSPITAL NEXT DOSE DUE: DATE: RESTART TODAY TIME: AT BEDTIME Levothyroxine Sodium 25 Mcg Tablet 1 Tab PO DAILY07 LAST DOSE GIVEN: DATE:TODAY TIME: BEFORE BREAKFAST NEXT DOSE DUE: DATE: TOMORROW TIME: BEFORE BREAKFAST Singulair Tablet (Montelukast Sodium) 10 Mg Tablet 10 Mg PO HS NOT GIVEN IN HOSPITAL NEXT DOSE DUE: DATE: RESTART TODAY TIME: AT BEDTIME Diagnosis: Problems: (1) Bipolar affective, mixed, sev w/ psych (2) Impulse control disorder (3) Anxiety disorder (4) Dementia, vascular, with delusions EULALIA NANCE MD Mar 22, 2017 21:48
[2017-03-22 23:14] VITALS: BP 102/64
[2017-03-23 01:37] VITALS: BP 141/71
--- NOTE | 2017-03-23 02:08 | PN ---
DATE: 03/22/2017 SUBJECTIVE: The patient is sitting comfortably in her chair in no apparent distress. She mumbles, but is difficult to understand. However, clinically she does not seem to be in any respiratory distress. She apparently was not accepted at [facility] and cannot be transferred to a [facility] as she does not have a DPOA. Nursing staff state that she actually eats and drinks well. Her lab works are still pending at the time of this dictation. PHYSICAL EXAMINATION: GENERAL: When I examined her, she looked pale, but no jaundiced, cyanosis, or thyromegaly. No jugular venous distention. No limb edema. VITAL SIGNS: Her heart rate was 105, blood pressure 135/72, temperature was 98, respiratory rate was 16, and oxygen saturation was 98%. HEAD, EYES, EARS, NOSE, AND THROAT: Normocephalic, atraumatic. NECK: Supple. HEART: Showed normal first and second heart sounds with no gallop, rub, or murmur. CHEST: Clear to auscultation. No crepitation or rhonchi. ABDOMEN: Slightly distended, soft, nontender. NEUROLOGIC: She is awake, alert, but very confused, delusional. All her cranial nerves are intact. She moves extremities without difficulty. The patient is able to ambulate without assistance or assistive devices. Her intake over the last 24 hours was 3350, output was 1450. LABORATORY DATA: As of yesterday, today's data is still pending, showed a serum sodium ____, potassium 4.5, chloride 117, bicarbonate 26, anion gap of 6, BUN 25, creatinine 1.4, estimated GFR was 58 mL per minute. Her glucose was 121, calcium was 9.4, magnesium 2.2. Total bilirubin is normal. Her AST, ALT, alkaline phosphatase are slightly elevated. Her total protein 7, albumin 3.6. White cell count was 10,200, hemoglobin 14, hematocrit 42, MCV 94, and platelet count of 261,000. Her blood cultures are so far negative. ASSESSMENT: 1. Bipolar affective disorder. 2. Delusional disorder. 3. Anxiety disorder, dementia, vascular with depression, impulse control disorder, acute kidney injury improving, ____ resolving, urinary tract infection, leukocytosis resolved. PLAN: Basically continue to monitor her lab work as the creatinine is still trending down. Today's labs are still pending. Continue with all her medication as her blood pressure seems to be much better controlled now. She is probably medically stable now for her to go to an inpatient psych unit; however, [facility] refused to take her as she does not have the DPOA for her to go upstairs to the [facility]. KRISTOFER NAJERA MD DR: CASSANDRA/fernando JOB#: [id number] / [id number]
[2017-03-23] MEDS: ACETAMINOPHEN 500 MG TABLET PO PRN (02:24)
--- NOTE | 2017-03-23 05:08 | PN ---
DATE: 03/22/2017 This note covers elements not covered in my initial note of 03/22/2017. SUBJECTIVE: The patient was seen individually the evening of 03/22/2017. Discussed with nursing staff, [facility] early this the morning and a consideration to transfer her to the [facility] when she is medically stable. Reviewed second time with the nursing staff earlier in the day and then again this evening. The patient remains somewhat withdrawn, psychotic, still quite disorganized. REVIEW OF SYSTEMS: Ambulation impaired. No CV, , pulmonary, eye system symptoms on review. Reliability poor. MENTAL STATUS EXAMINATION: Oriented to herself. Insight, judgment, recent and remote memory, attention, concentration, fund of knowledge poor, consistent with her diagnosis. She appears quite confused but is still psychotic. Her speech has some latency. She has some thought blocking as well evident. She denies being delusional or having hallucinations, but that is her subjective perception. Objectively, she still seems psychotic. LABORATORY DATA: Reviewed. IMPRESSION: Bipolar 1 disorder, mixed with psychotic features; anxiety disorder, unspecified; major neurocognitive disorder, possibly with delusions versus cognitive disorder, unspecified. PLAN: Increase Risperdal to 3.5 mg at bedtime. Maintain lithium carbonate at current dosage, level therapeutic at 0.6. Transfer to the [facility] once she is medically stable. EULALIA NANCE MD DR: ELLIS/fernando JOB#: [id number] / [id number]
[2017-03-23] MEDS: LEVOTHYROXINE 25 MCG TABLET. PO SCH (05:52)
[2017-03-23 05:59] VITALS: BP 129/67
[2017-03-23 07:39] LABS: HEMATOCRIT 43.9 % (36.0-47.0); HEMOGLOBIN 14.4 g/dL (12.0-15.5); RED BLOOD COUNT 4.56 x10^6/uL (3.50-5.40); RED CELL DISTRIBUTION WIDTH 13.3 % (11.5-14.5); WHITE BLOOD COUNT 11.2 x10^3/uL (4.0-11.0)
[2017-03-23 07:45] LABS: CALCIUM 9.7 mg/dL (8.5-10.1); CREATININE 1.9 mg/dL (0.6-1.0); GFR 26.5; POTASSIUM 3.7 mmol/L (3.5-5.1)
[2017-03-23] MEDS: LITHIUM CARBONATE 300 MG TABLET PO SCH ×2 (08:23→20:58)
[2017-03-23] MEDS: DOCUSATE SODIUM 100 MG CAPSULE PO SCH ×2 (08:24→20:58)
[2017-03-23] MEDS: METOPROLOL TART IMMED RELEASE 25 MG TABLET PO SCH ×2 (08:24→20:58)
[2017-03-23] MEDS: POTASSIUM CHLORIDE 10 MEQ TABLET.ER. PO SCH (08:24)
[2017-03-23] MEDS: hydroCHLOROthiazide 12.5 MG CAPSULE PO SCH (08:24)
[2017-03-23] MEDS: LISINOPRIL 20 MG TABLET PO SCH (08:24)
[2017-03-23] MEDS: PANTOPRAZOLE 40 MG TABLET. PO SCH ×2 (08:24→20:58)
[2017-03-23 10:54] VITALS: BP 108/70
[2017-03-23] MEDS: IV NORMAL SALINE 1,000ML 1,000 ML IV SCH (14:45)
[2017-03-23] MEDS: RIVAROXABAN 15 MG TABLET. PO SCH (17:13)
--- NOTE | 2017-03-23 19:20 | PDOC ---
Exam Dixon Demential Exam: Dixon Note: Please also refer to the separate dictated note~for this date of service dictated separately.~Patient seen individually. Discussed the patient with Nursing staff reviewed the chart.~Reviewed interim history and current functioning. Reviewed vital signs,~Labs/ Radiology~and current medications noted below. Continue current treatment with the changes noted in the dictated addendum note Assessment: Vital Signs: Vital Signs Date Time Temp Pulse Resp B/P (MAP) Pulse Ox O2 Delivery O2 Flow Rate FiO2 03/23/17 10:54 98.2 91 20 108/70 (83) 97 Room Air I&O Intake and Output 03/24/17 07:00 Intake Total 600 ml Output Total 200 ml Balance 400 ml Intake Oral 600 ml Output Urine Total 200 ml # Voids 3 Labs: Laboratory Tests Test 03/23/17 07:10 White Blood Count 11.2 x10^3/uL (4.0-11.0) H Red Blood Count 4.56 x10^6/uL (3.50-5.40) Hemoglobin 14.4 g/dL (12.0-15.5) Hematocrit 43.9 % (36.0-47.0) Mean Corpuscular Volume 96 fL (79-100) Mean Corpuscular Hemoglobin 32 pg (25-35) Mean Corpuscular Hemoglobin Concent 33 g/dL (31-37) Red Cell Distribution Width 13.3 % (11.5-14.5) Platelet Count 255 x10^3/uL (140-400) Sodium Level 141 mmol/L (136-145) Potassium Level 3.7 mmol/L (3.5-5.1) Chloride Level 108 mmol/L (98-107) H Carbon Dioxide Level 24 mmol/L (21-32) Anion Gap 9 (6-14) Blood Urea Nitrogen 25 mg/dL (7-20) H Creatinine 1.9 mg/dL (0.6-1.0) H Estimated GFR (Cockcroft-Gault) 26.5 Glucose Level 155 mg/dL (70-99) H Calcium Level 9.7 mg/dL (8.5-10.1) Current Medications: Meds: Current Medications Sodium Chloride 1,000 ml @ 100 mls/hr Q10H IV Last administered on 03/14/17t 23 :32; Start 03/14/17 at 23:30; Stop 03/15/17 at 09:30; Status DC Ceftriaxone Sodium 1 gm/ Sodium Chloride 50 ml @ 100 mls/hr 1X ONCE IV Last administered on 03/15/17 00:14; Start 03/15/17 at 00:15; Stop 03/15/17 at 00:44; Status DC Sodium Chloride 50 ml @ As Directed STK-MED ONCE .ROUTE ; Start 03/15/17 at 00:04 ; Stop 03/15/17 at 00:05; Status DC Ceftriaxone Sodium (Rocephin) 1 gm STK-MED ONCE IV ; Start 03/15/17 at 00:04; Stop 03/15/17 at 00:05; Status DC Ceftriaxone Sodium 1 gm/ Sodium Chloride 50 ml @ 100 mls/hr QHS IV Last administered on 03/16/17 20:34; Start 03/15/17 at 21:00; Stop 03/17/17 at 10:20; Status DC Aspirin (Jayant Aspirin) 325 mg DAILY PO Last administered on 03/16/17 09:00; Start 03/15/17 at 09:00; Stop 03/17/17 at 10:18; Status DC Lorazepam (Ativan) 1 mg 1X PRN PRN PO Agitation Last administered on 03/15/17 08:51; Start 03/15/17 at 02:30; Stop 03/15/17 at 13:49; Status DC Lorazepam (Ativan) 1 mg 1X ONCE PO Last administered on 03/15/17 02:45; Start 03/15/17 at 02:45; Stop 03/15/17 at 13:49; Status DC Aspirin (Jayant Aspirin) 325 mg 1X ONCE PO Last administered on 03/15/17 02:45 ; Start 03/15/17 at 02:45; Stop 03/15/17 at 02:46; Status DC Atorvastatin Calcium (Lipitor) 20 mg QHS PO Last administered on 03/22/17 21: 13; Start 03/15/17 at 21:00 Docusate Sodium (Colace) 100 mg BID PO Last administered on 03/21/17 08:12; Start 03/15/17 at 09:00 Donepezil HCl (Aricept) 10 mg HS PO ; Start 03/15/17 at 21:00; Stop 03/15/17 at 21 :00; Status DC Levothyroxine Sodium (Synthroid) 25 mcg DAILY07 PO Last administered on 05:52; Start 03/16/17 at 07:00 Montelukast Sodium (Singulair) 10 mg HS PO Last administered on 03/22/17 21:12 ; Start 03/15/17 at 21:00 Pantoprazole Sodium (Protonix) 40 mg BID PO Last administered on 03/23/17 08: 24; Start 03/15/17 at 09:00 Ramelteon (Rozerem) 8 mg PRN QHS PRN PO INSOMNIA; Start 03/15/17 at 07:15; Stop 03/15/17 at 13:49; Status DC Diltiazem HCl (Cardizem 24hr Cd) 240 mg DAILY PO Last administered on 03/19/17 08:35; Start 03/15/17 at 09:00; Stop 03/20/17 at 08:11; Status DC Gabapentin (Neurontin) 600 mg TID PO Last administered on 03/15/17 08:52; Start 03/15/17 at 09:00; Stop 03/15/17 at 13:49; Status DC Lisinopril (Prinivil) 20 mg DAILY PO Last administered on 03/19/17 08:35; Start 03/15/17 at 09:00; Stop 03/19/17 at 15:07; Status DC [place] Carbonate 300 mg BID PO Last administered on 03/23/17 08:23; Start 03/15/17 at 09:00; Status Future hold Potassium Chloride (Klor-Con) 10 meq DAILYWBKFT PO Last administered on 08:24; Start 03/15/17 at 08:00 Rivaroxaban (Xarelto) 20 mg DAILYWSUP PO Last administered on 03/18/17 17:09; Start 03/15/17 at 17:00; Stop 03/20/17 at 11:31; Status DC Non-Formulary Medication 10 mg DAILY PO ; Start 03/15/17 at 09:00; Stop 03/17/17 at 10:19; Status DC Hydrochlorothiazide (Microzide) 12.5 mg DAILY PO Last administered on 03/19/17 08:35; Start 03/15/17 at 09:00; Stop 03/19/17 at 15:07; Status DC Sodium Chloride 50 ml @ As Directed STK-MED ONCE .ROUTE Last administered on 20:40; Start 03/15/17 at 20:23; Stop 03/15/17 at 20:24; Status DC Trazodone HCl (Desyrel) 50 mg PRN QHS PRN PO INSOMNIA, MAY REPEAT X1 Last administered on 03/16/17 00:41; Start 03/15/17 at 20:45; Stop 03/16/17 at 20:19; Status DC Trazodone HCl (Desyrel) 100 mg PRN QHS PRN PO INSOMNIA, MAY REPEAT X1 Last administered on 03/21/17 19:40; Start 03/16/17 at 20:30 Risperidone (RisperDAL) 0.5 mg QHS PO Last administered on 03/16/17 20:35; Start 03/16/17 at 21:00; Stop 03/17/17 at 19:10; Status DC Risperidone (RisperDAL) 1 mg QHS PO Last administered on 03/17/17 20:15; Start 03/17/17 at 21:00; Stop 03/18/17 at 19:00; Status DC Alprazolam (Xanax) 0.5 mg PRN Q4HRS PRN PO ANXIETY / AGITATION Last administered on 03/19/17 08:34; Start 03/17/17 at 19:15; Stop 03/19/17 at 15:08; Status DC Risperidone (RisperDAL) 2 mg HS PO Last administered on 03/18/17 19:37; Start 03/18/17 at 21:00; Stop 03/19/17 at 19:53; Status DC Sodium Chloride 500 ml @ As Directed STK-MED ONCE .ROUTE ; Start 03/19/17 at 14: 21; Stop 03/19/17 at 14:22; Status DC Alprazolam (Xanax) 0.5 mg PRN Q8HRS PRN PO ANXIETY / AGITATION; Start 03/19/17 at 15:15; Stop 03/20/17 at 12:33; Status DC Risperidone (RisperDAL) 3 mg HS PO Last administered on 9/11/17at 21:14; Start 03/19/17 at 21:00; Stop 03/22/17 at 21:49; Status DC Diltiazem HCl (Cardizem 24hr Cd) 120 mg DAILY PO Last administered on 08:12; Start 03/21/17 at 09:00; Stop 03/21/17 at 18:22; Status DC Metoprolol Tartrate (Lopressor) 12.5 mg BID PO Last administered on 03/23/17 08:24; Start 03/20/17 at 09:00 Sodium Chloride 1,000 ml @ 125 mls/hr Q8H IV Last administered on 03/21/17 08 :19; Start 03/20/17 at 10:15; Stop 03/21/17 at 14:44; Status DC Sodium Chloride 1,000 ml @ 1,000 mls/hr 1X ONCE IV Last administered on 14:11; Start 03/20/17 at 10:15; Stop 03/20/17 at 11:14; Status DC Ceftriaxone Sodium 1 gm/ Sodium Chloride 50 ml @ 100 mls/hr Q24H IV Last administered on 03/21/17 09:27; Start 03/20/17 at 10:00; Stop 03/21/17 at 14:44 ; Status DC Rivaroxaban (Xarelto) 15 mg DAILYWSUP PO Last administered on 03/23/17 17:13; Start 03/20/17 at 17:00 Ceftriaxone Sodium (Rocephin Im) 1 gm 1X ONCE IM Last administered on 13:15; Start 03/20/17 at 12:15; Stop 03/20/17 at 12:16; Status DC Alprazolam (Xanax) 0.25 mg PRN Q8HRS PRN PO ANXIETY / AGITATION; Start 03/20/17 at 12:45; Stop 03/20/17 at 14:30; Status DC Acetaminophen (Tylenol) 500 mg PRN Q6HRS PRN PO PAIN / TEMP Last administered on 03/23/17 02:24; Start 03/21/17 at 08:00 Fosfomycin Tromethamine (Monurol) 3 gm 1X ONCE PO Last administered on 17:33; Start 03/21/17 at 15:00; Stop 03/21/17 at 15:01; Status DC Lisinopril (Prinivil) 20 mg DAILY PO Last administered on 03/23/17 08:24; Start 03/21/17 at 18:30; Stop 03/23/17 at 14:29; Status DC Hydrochlorothiazide (Microzide) 12.5 mg DAILY PO Last administered on 08:24; Start 03/21/17 at 18:30; Stop 03/23/17 at 14:29; Status DC Labetalol HCl (Normodyne) 20 mg 1X ONCE IVP Last administered on 03/21/17 18: 30; Start 03/21/17 at 18:30; Stop 03/21/17 at 18:31; Status DC Diltiazem HCl (Cardizem 24hr Cd) 120 mg 1X ONCE PO Last administered on 18:44; Start 03/21/17 at 19:00; Stop 03/21/17 at 19:01; Status DC Diltiazem HCl (Cardizem 24hr Cd) 240 mg DAILY PO Last administered on 08:24; Start 03/22/17 at 09:00 Risperidone (RisperDAL) 3.5 mg HS PO ; Start 03/23/17 at 21:00 Sodium Chloride 1,000 ml @ 75 mls/hr [id number] IV Last administered on 14:45; Start 03/23/17 at 14:45 Active Scripts Active Xarelto (Rivaroxaban) 20 Mg Tablet 20 Mg PO DAILYWSUP Reported Gabapentin 600 Mg Tablet 600 Mg PO TID [place] Carbonate 300 Mg Tablet 300 Mg PO BID Pantoprazole Sodium 40 Mg Tablet.dr 40 Mg PO BID Doc-Q-Lace (Docusate Sodium) 100 Mg Capsule 100 Mg PO BID Donepezil Hcl 10 Mg Tablet 10 Mg PO HS Lisinopril-Hctz 20-12.5 Mg Tab (Lisinopril/Hydrochlorothiazide) 1 Each Tablet 1 Tab PO DAILY Rozerem (Ramelteon) 8 Mg Tablet 8 Mg PO HS PRN Trintellix (Vortioxetine Hydrobromide) 10 Mg Tablet 10 Mg PO DAILY Potassium Chloride 10 Meq Tablet.er 10 Meq PO DAILYWBKFT Diltiazem 24Hr ER (Diltiazem HCl) 240 Mg Tab.er.24h 240 Mg PO DAILY Atorvastatin Calcium 20 Mg Tablet 20 Mg PO QHS NOT GIVEN IN THE HOSPITAL NEXT DOSE DUE: DATE: RESTART TODAY TIME: AT BEDTIME Levothyroxine Sodium 25 Mcg Tablet 1 Tab PO DAILY07 LAST DOSE GIVEN: DATE:TODAY TIME: BEFORE BREAKFAST NEXT DOSE DUE: DATE: TOMORROW TIME: BEFORE BREAKFAST Singulair Tablet (Montelukast Sodium) 10 Mg Tablet 10 Mg PO HS NOT GIVEN IN HOSPITAL NEXT DOSE DUE: DATE: RESTART TODAY TIME: AT BEDTIME Diagnosis: Problems: (1) Bipolar affective, mixed, sev w/ psych (2) Impulse control disorder (3) Anxiety disorder (4) Dementia, vascular, with delusions (5) Delusional disorder EULALIA NANCE MD Mar 23, 2017 19:20
[2017-03-23 20:00] VITALS: BP 107/66
[2017-03-23] MEDS: MONTELUKAST 10 MG TABLET. PO SCH (20:58)
[2017-03-23] MEDS: ATORVASTATIN CALCIUM 20 MG TABLET PO SCH (20:58)
[2017-03-23] MEDS: risperiDONE 1 MG TABLET. PO SCH (20:58)
[2017-03-23] MEDS ORDERED: risperiDONE 1 MG TABLET. PO SCH (21:00)
--- NOTE | 2017-03-24 01:05 | PN ---
DATE: 03/23/2017 SUBJECTIVE: The patient continued to be quite, confused, really difficult to understand, but clinically does not seem to be in any respiratory distress. She was seen by Dr. Brown and the plan was for her to be transferred to [facility] once she is medically stable. Unfortunately, her BUN and creatinine are trending upward again. PHYSICAL EXAMINATION: GENERAL: On examining her, she looked pale, but no jaundice, cyanosis, lymphadenopathy or thyromegaly. No jugular venous distention. No limb edema. VITAL SIGNS: Her heart rate was 91, blood pressure was 108/70, temperature was 98.2, respiratory rate 20, and oxygen saturation was 97%. HEENT: Normocephalic, atraumatic. NECK: Supple. HEART: Showed normal first and second heart sounds with no gallop, rub or murmur. CHEST: Clear to auscultation. No crepitation or rhonchi. ABDOMEN: Distended, soft, nontender. NEUROLOGIC: She was very confused, psychotic, but without any obvious lateralizing sign. All her cranial nerves intact. She moves extremities without difficulty. She ambulates without assistance or assistive devices. Her intake over the last 24 hours was 3350, output was 1450. LABORATORY DATA: This morning showed a serum sodium of 141, potassium 3.7, chloride 108, bicarbonate 24, anion gap of 9, BUN 25, creatinine 1.9, estimated GFR was down to 26 mL per minute. Her glucose was 155, calcium was 9.7. Her AST, ALT, alkaline phosphatase are all slightly elevated. Her white cell count was 11,200, hemoglobin 14, hematocrit 44, MCV 96, and platelet count 255,000. ASSESSMENT: 1. Bipolar affective disorder. 2. Delusional disorder. 3. Anxiety. 4. Dementia, vascular depression and impulse control disorder. 5. Acute kidney injury with BUN and creatinine trending upward, urinary tract infection that has resolved. PLAN: Given the fact that her BUN and creatinine are trending upward, I discontinued her lisinopril and hydrochlorothiazide. We will start her on IV fluid. We will scan her bladder to make sure that there is no element of obstructive uropathy. I will repeat all her lab works tomorrow. KRISTOFER NAJERA MD DR: CASSANDRA/fernando JOB#: [id number] / [id number]
[2017-03-24] MEDS: LEVOTHYROXINE 25 MCG TABLET. PO SCH (05:03)
[2017-03-24] MEDS: IV NORMAL SALINE 1,000ML 1,000 ML IV SCH ×2 (05:03→17:12)
[2017-03-24 05:08] VITALS: BP 145/83
[2017-03-24] MEDS: ACETAMINOPHEN 500 MG TABLET PO PRN (05:20)
[2017-03-24] MEDS ORDERED: ALPRAZolam 0.5 MG TABLET PO ONE (05:45)
--- NOTE | 2017-03-24 06:33 | EKG ---
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
[2017-03-24 07:13] LABS: ALBUMIN 3.4 g/dL (3.4-5.0); ALBUMIN/GLOBULIN RATIO 1.1 (1.0-1.7); CALCIUM 9.7 mg/dL (8.5-10.1); CREATININE 1.6 mg/dL (0.6-1.0); GFR 32.3; POTASSIUM 4.1 mmol/L (3.5-5.1); TOTAL BILIRUBIN 0.4 mg/dL (0.2-1.0); TOTAL PROTEIN 6.6 g/dL (6.4-8.2)
[2017-03-24 07:25] LABS: HEMATOCRIT 40.4 % (36.0-47.0); HEMOGLOBIN 13.6 g/dL (12.0-15.5); RED BLOOD COUNT 4.29 x10^6/uL (3.50-5.40); RED CELL DISTRIBUTION WIDTH 13.3 % (11.5-14.5); WHITE BLOOD COUNT 10.3 x10^3/uL (4.0-11.0)
--- NOTE | 2017-03-24 08:10 | RAD ---
CT of the head without contrast, 03/24/2017: History: Altered mental status Comparison is made to a study from 03/14/2017. There is mild cerebral atrophy. The ventricles are within normal limits in size. There is no shift of the midline structures. There is no evidence of acute intracranial hemorrhage or mass effect. IMPRESSION: No acute intracranial abnormality is detected. PQRS Compliance Statement: One or more of the following individualized dose reduction techniques were utilized for this examination: 1. Automated exposure control 2. Adjustment of the mA and/or kV according to patient size 3. Use of iterative reconstruction technique
--- NOTE | 2017-03-24 08:40 | PN ---
DATE: 03/23/2017 This note covers elements not covered in my initial note of 03/23/2017. SUBJECTIVE: The patient was seen individually evening of 03/23/2017. Per nursing report, she has appeared more confused in this afternoon, nursing staff had to feed her her lunch. She did feed herself some supper. She continues to have some mood lability, remains psychotic. Social service staff facilitating guardianship on the patient so that appropriate psychiatric followup can be arranged. CT head at admission was unremarkable. [place] level at last check on 03/16/2017 was 0.6. REVIEW OF SYSTEMS: Positive for some tiredness. No CV, , pulmonary, eye system symptoms on review. MENTAL STATUS EXAM: Oriented to herself, somewhat labile in her mood, paranoid, delusional. Abstraction fair, computation impaired, language function intact, attention span short, mood and affect labile. LABORATORY DATA: Reviewed. IMPRESSION: Bipolar 1 disorder, mixed with psychotic features; anxiety disorder, unspecified; cognitive disorder, unspecified versus major neurocognitive disorder, Alzheimer, vascular with delusions. PLAN: We will repeat lithium level. Repeat CT head given change in her mental status. Maintain lithium at current dosage. Continue trazodone, reduce Risperdal down to 2 mg p.o. at bedtime for now to make sure the higher dosage of Risperdal is not having an interaction with lithium causing worsening of her confusion, even though it is unlikely. We will have to continuously reassess this on a daily basis. We will be happy to [facility] when she is medically stable and appropriate authorities able to sign her on to the psychiatric floor. EULALIA NANCE MD DR: ELLIS/fernando JOB#: [id number] / [id number]
[2017-03-24] MEDS: LITHIUM CARBONATE 300 MG TABLET PO SCH (09:18)
[2017-03-24] MEDS: DOCUSATE SODIUM 100 MG CAPSULE PO SCH ×2 (09:18→20:05)
[2017-03-24] MEDS: METOPROLOL TART IMMED RELEASE 25 MG TABLET PO SCH ×2 (09:18→20:06)
[2017-03-24] MEDS: POTASSIUM CHLORIDE 10 MEQ TABLET.ER. PO SCH (09:18)
[2017-03-24] MEDS: PANTOPRAZOLE 40 MG TABLET. PO SCH ×2 (09:18→20:05)
[2017-03-24 10:14] VITALS: BP 110/77
[2017-03-24 13:54] LABS: LI 1.3 mmol/L (0.6-1.2)
[2017-03-24 15:53] VITALS: BP 139/72
[2017-03-24] MEDS: RIVAROXABAN 15 MG TABLET. PO SCH (17:12)
--- NOTE | 2017-03-24 18:17 | PDOC ---
Exam Dixon Demential Exam: Dixon Note: Please also refer to the separate dictated note~for this date of service dictated separately.~Patient seen individually. Discussed the patient with Nursing staff reviewed the chart.~Reviewed interim history and current functioning. Reviewed vital signs,~Labs/ Radiology~and current medications noted below. Continue current treatment with the changes noted in the dictated addendum note Assessment: Vital Signs: Vital Signs Date Time Temp Pulse Resp B/P (MAP) Pulse Ox O2 Delivery O2 Flow Rate FiO2 03/24/17 15:53 98.0 100 20 139/72 (94) 97 Room Air I&O Intake and Output 03/25/17 07:01 Intake Total 2375.58 ml Output Total 2050 ml Balance 325.58 ml Intake Oral 1420 ml IV Total 955.58 ml Output Urine Total 2050 ml # Voids 1 # Bowel Movements 2 Labs: Laboratory Tests Test 03/24/17 06:49 White Blood Count 10.3 x10^3/uL (4.0-11.0) Red Blood Count 4.29 x10^6/uL (3.50-5.40) Hemoglobin 13.6 g/dL (12.0-15.5) Hematocrit 40.4 % (36.0-47.0) Mean Corpuscular Volume 94 fL (79-100) Mean Corpuscular Hemoglobin 32 pg (25-35) Mean Corpuscular Hemoglobin Concent 34 g/dL (31-37) Red Cell Distribution Width 13.3 % (11.5-14.5) Platelet Count 231 x10^3/uL (140-400) Sodium Level 145 mmol/L (136-145) Potassium Level 4.1 mmol/L (3.5-5.1) Chloride Level 113 mmol/L (98-107) H Carbon Dioxide Level 25 mmol/L (21-32) Anion Gap 7 (6-14) Blood Urea Nitrogen 27 mg/dL (7-20) H Creatinine 1.6 mg/dL (0.6-1.0) H Estimated GFR (Cockcroft-Gault) 32.3 BUN/Creatinine Ratio 17 (6-20) Glucose Level 117 mg/dL (70-99) H Calcium Level 9.7 mg/dL (8.5-10.1) Total Bilirubin 0.4 mg/dL (0.2-1.0) Aspartate Amino Transferase (AST) 24 U/L (15-37) Alanine Aminotransferase (ALT) 49 U/L (14-59) Alkaline Phosphatase 107 U/L (46-116) Total Protein 6.6 g/dL (6.4-8.2) Albumin 3.4 g/dL (3.4-5.0) Albumin/Globulin Ratio 1.1 (1.0-1.7) [place] Level 1.3 mmol/L (0.6-1.2) H [place] Last Dose Date 03/23/17 [place] Last Dose Time 2100 Current Medications: Meds: Current Medications Sodium Chloride 1,000 ml @ 100 mls/hr Q10H IV Last administered on 03/14/17 23 :32; Start 03/14/17 at 23:30; Stop 03/15/17 at 09:30; Status DC Ceftriaxone Sodium 1 gm/ Sodium Chloride 50 ml @ 100 mls/hr 1X ONCE IV Last administered on 03/15/17 00:14; Start 03/15/17 at 00:15; Stop 03/15/17 at 00:44; Status DC Sodium Chloride 50 ml @ As Directed STK-MED ONCE .ROUTE ; Start 03/15/17 at 00:04 ; Stop 03/15/17 at 00:05; Status DC Ceftriaxone Sodium (Rocephin) 1 gm STK-MED ONCE IV ; Start 03/15/17 at 00:04; Stop 03/15/17 at 00:05; Status DC Ceftriaxone Sodium 1 gm/ Sodium Chloride 50 ml @ 100 mls/hr QHS IV Last administered on 03/16/17 20:34; Start 03/15/17 at 21:00; Stop 03/17/17 at 10:20; Status DC Aspirin (Jayant Aspirin) 325 mg DAILY PO Last administered on 03/16/17 09:00; Start 03/15/17 at 09:00; Stop 03/17/17 at 10:18; Status DC Lorazepam (Ativan) 1 mg 1X PRN PRN PO Agitation Last administered on 03/15/17 08:51; Start 03/15/17 at 02:30; Stop 03/15/17 at 13:49; Status DC Lorazepam (Ativan) 1 mg 1X ONCE PO Last administered on 03/15/17 02:45; Start 03/15/17 at 02:45; Stop 03/15/17 at 13:49; Status DC Aspirin (Jayant Aspirin) 325 mg 1X ONCE PO Last administered on 03/15/17 02:45 ; Start 03/15/17 at 02:45; Stop 03/15/17 at 02:46; Status DC Atorvastatin Calcium (Lipitor) 20 mg QHS PO Last administered on 03/23/17 20: 58; Start 03/15/17 at 21:00 Docusate Sodium (Colace) 100 mg BID PO Last administered on 03/24/17 09:18; Start 03/15/17 at 09:00 Donepezil HCl (Aricept) 10 mg HS PO ; Start 03/15/17 at 21:00; Stop 03/15/17 at 21 :00; Status DC Levothyroxine Sodium (Synthroid) 25 mcg DAILY07 PO Last administered on 05:03; Start 03/16/17 at 07:00 Montelukast Sodium (Singulair) 10 mg HS PO Last administered on 03/23/17 20:58 ; Start 03/15/17 at 21:00 Pantoprazole Sodium (Protonix) 40 mg BID PO Last administered on 03/24/17 09: 18; Start 03/15/17 at 09:00 Ramelteon (Rozerem) 8 mg PRN QHS PRN PO INSOMNIA; Start 03/15/17 at 07:15; Stop 03/15/17 at 13:49; Status DC Diltiazem HCl (Cardizem 24hr Cd) 240 mg DAILY PO Last administered on 03/19/17 08:35; Start 03/15/17 at 09:00; Stop 03/20/17 at 08:11; Status DC Gabapentin (Neurontin) 600 mg TID PO Last administered on 03/15/17 08:52; Start 03/15/17 at 09:00; Stop 03/15/17 at 13:49; Status DC Lisinopril (Prinivil) 20 mg DAILY PO Last administered on 03/19/17 08:35; Start 03/15/17 at 09:00; Stop 03/19/17 at 15:07; Status DC [place] Carbonate 300 mg BID PO Last administered on 03/24/17 09:18; Start 03/15/17 at 09:00; Status Future hold Potassium Chloride (Klor-Con) 10 meq DAILYWBKFT PO Last administered on 09:18; Start 03/15/17 at 08:00 Rivaroxaban (Xarelto) 20 mg DAILYWSUP PO Last administered on 03/18/17 17:09; Start 03/15/17 at 17:00; Stop 03/20/17 at 11:31; Status DC Non-Formulary Medication 10 mg DAILY PO ; Start 03/15/17 at 09:00; Stop 03/17/17 at 10:19; Status DC Hydrochlorothiazide (Microzide) 12.5 mg DAILY PO Last administered on 03/19/17 08:35; Start 03/15/17 at 09:00; Stop 03/19/17 at 15:07; Status DC Sodium Chloride 50 ml @ As Directed STK-MED ONCE .ROUTE Last administered on 20:40; Start 03/15/17 at 20:23; Stop 03/15/17 at 20:24; Status DC Trazodone HCl (Desyrel) 50 mg PRN QHS PRN PO INSOMNIA, MAY REPEAT X1 Last administered on 03/16/17 00:41; Start 03/15/17 at 20:45; Stop 03/16/17 at 20:19; Status DC Trazodone HCl (Desyrel) 100 mg PRN QHS PRN PO INSOMNIA, MAY REPEAT X1 Last administered on 03/21/17 19:40; Start 03/16/17 at 20:30 Risperidone (RisperDAL) 0.5 mg QHS PO Last administered on 03/16/17 20:35; Start 03/16/17 at 21:00; Stop 03/17/17 at 19:10; Status DC Risperidone (RisperDAL) 1 mg QHS PO Last administered on 03/17/17 20:15; Start 03/17/17 at 21:00; Stop 03/18/17 at 19:00; Status DC Alprazolam (Xanax) 0.5 mg PRN Q4HRS PRN PO ANXIETY / AGITATION Last administered on 03/19/17 08:34; Start 03/17/17 at 19:15; Stop 03/19/17 at 15:08; Status DC Risperidone (RisperDAL) 2 mg HS PO Last administered on 03/18/17 19:37; Start 03/18/17 at 21:00; Stop 03/19/17 at 19:53; Status DC Sodium Chloride 500 ml @ As Directed STK-MED ONCE .ROUTE ; Start 03/19/17 at 14: 21; Stop 03/19/17 at 14:22; Status DC Alprazolam (Xanax) 0.5 mg PRN Q8HRS PRN PO ANXIETY / AGITATION; Start 03/19/17 at 15:15; Stop 03/20/17 at 12:33; Status DC Risperidone (RisperDAL) 3 mg HS PO Last administered on 03/22/17 21:14; Start 03/19/17 at 21:00; Stop 03/22/17 at 21:49; Status DC Diltiazem HCl (Cardizem 24hr Cd) 120 mg DAILY PO Last administered on 08:12; Start 03/21/17 at 09:00; Stop 03/21/17 at 18:22; Status DC Metoprolol Tartrate (Lopressor) 12.5 mg BID PO Last administered on 03/24/17 09:18; Start 03/20/17 at 09:00 Sodium Chloride 1,000 ml @ 125 mls/hr Q8H IV Last administered on 03/21/17 08 :19; Start 03/20/17 at 10:15; Stop 03/21/17 at 14:44; Status DC Sodium Chloride 1,000 ml @ 1,000 mls/hr 1X ONCE IV Last administered on 14:11; Start 03/20/17 at 10:15; Stop 03/20/17 at 11:14; Status DC Ceftriaxone Sodium 1 gm/ Sodium Chloride 50 ml @ 100 mls/hr Q24H IV Last administered on 03/21/17 09:27; Start 03/20/17 at 10:00; Stop 03/21/17 at 14:44 ; Status DC Rivaroxaban (Xarelto) 15 mg DAILYWSUP PO Last administered on 03/24/17 17:12; Start 03/20/17 at 17:00 Ceftriaxone Sodium (Rocephin Im) 1 gm 1X ONCE IM Last administered on 13:15; Start 03/20/17 at 12:15; Stop 03/20/17 at 12:16; Status DC Alprazolam (Xanax) 0.25 mg PRN Q8HRS PRN PO ANXIETY / AGITATION; Start 03/20/17 at 12:45; Stop 03/20/17 at 14:30; Status DC Acetaminophen (Tylenol) 500 mg PRN Q6HRS PRN PO PAIN / TEMP Last administered on 03/24/17 05:20; Start 03/21/17 at 08:00 Fosfomycin Tromethamine (Monurol) 3 gm 1X ONCE PO Last administered on 17:33; Start 03/21/17 at 15:00; Stop 03/21/17 at 15:01; Status DC Lisinopril (Prinivil) 20 mg DAILY PO Last administered on 03/23/17 08:24; Start 03/21/17 at 18:30; Stop 03/23/17 at 14:29; Status DC Hydrochlorothiazide (Microzide) 12.5 mg DAILY PO Last administered on 08:24; Start 03/21/17 at 18:30; Stop 03/23/17 at 14:29; Status DC Labetalol HCl (Normodyne) 20 mg 1X ONCE IVP Last administered on 03/21/17 18: 30; Start 03/21/17 at 18:30; Stop 03/21/17 at 18:31; Status DC Diltiazem HCl (Cardizem 24hr Cd) 120 mg 1X ONCE PO Last administered on 18:44; Start 03/21/17 at 19:00; Stop 03/21/17 at 19:01; Status DC Diltiazem HCl (Cardizem 24hr Cd) 240 mg DAILY PO Last administered on 09:16; Start 03/22/17 at 09:00 Risperidone (RisperDAL) 3.5 mg HS PO ; Start 03/23/17 at 21:00; Stop 03/23/17 at 21:00; Status DC Sodium Chloride 1,000 ml @ 75 mls/hr [id number] IV Last administered on 17:12; Start 03/23/17 at 14:45 Risperidone (RisperDAL) 2 mg HS PO Last administered on 03/23/17 20:58; Start 03/23/17 at 21:00 Alprazolam (Xanax) 0.5 mg 1X ONCE PO Last administered on 03/24/17 05:50; Start 03/24/17 at 05:45; Stop 03/24/17 at 05:47; Status DC Active Scripts Active Xarelto (Rivaroxaban) 20 Mg Tablet 20 Mg PO DAILYWSUP Reported Gabapentin 600 Mg Tablet 600 Mg PO TID [place] Carbonate 300 Mg Tablet 300 Mg PO BID Pantoprazole Sodium 40 Mg Tablet.dr 40 Mg PO BID Doc-Q-Lace (Docusate Sodium) 100 Mg Capsule 100 Mg PO BID Donepezil Hcl 10 Mg Tablet 10 Mg PO HS Lisinopril-Hctz 20-12.5 Mg Tab (Lisinopril/Hydrochlorothiazide) 1 Each Tablet 1 Tab PO DAILY Rozerem (Ramelteon) 8 Mg Tablet 8 Mg PO HS PRN Trintellix (Vortioxetine Hydrobromide) 10 Mg Tablet 10 Mg PO DAILY Potassium Chloride 10 Meq Tablet.er 10 Meq PO DAILYWBKFT Diltiazem 24Hr ER (Diltiazem HCl) 240 Mg Tab.er.24h 240 Mg PO DAILY Atorvastatin Calcium 20 Mg Tablet 20 Mg PO QHS NOT GIVEN IN THE HOSPITAL NEXT DOSE DUE: DATE: RESTART TODAY TIME: AT BEDTIME Levothyroxine Sodium 25 Mcg Tablet 1 Tab PO DAILY07 LAST DOSE GIVEN: DATE:TODAY TIME: BEFORE BREAKFAST NEXT DOSE DUE: DATE: TOMORROW TIME: BEFORE BREAKFAST Singulair Tablet (Montelukast Sodium) 10 Mg Tablet 10 Mg PO HS NOT GIVEN IN HOSPITAL NEXT DOSE DUE: DATE: RESTART TODAY TIME: AT BEDTIME Diagnosis: Problems: (1) Bipolar affective, mixed, sev w/ psych (2) Impulse control disorder (3) Anxiety disorder (4) Dementia, vascular, with delusions (5) Dementia, vascular, with depression EULALIA NANCE MD Mar 24, 2017 18:17
[2017-03-24 19:00] VITALS: BP 132/91
[2017-03-24] MEDS: ATORVASTATIN CALCIUM 20 MG TABLET PO SCH (20:05)
[2017-03-24] MEDS: MONTELUKAST 10 MG TABLET. PO SCH (20:05)
[2017-03-24] MEDS: traZODone 100 MG TABLET. PO PRN (20:05)
[2017-03-24] MEDS: risperiDONE 1 MG TABLET. PO SCH (20:06)
[2017-03-24 20:23] VITALS: BP 146/89
[2017-03-24 22:46] VITALS: BP 131/76
[2017-03-25] MEDS: ACETAMINOPHEN 500 MG TABLET PO PRN (00:15)
--- NOTE | 2017-03-25 03:47 | PN ---
DATE: 03/24/2017 SUBJECTIVE: The patient is resting flat, comfortably in bed, in no apparent distress. She continued to be very confused, mumbling, difficult to understand. She gets very agitated and anxious. Her heart rate rised at 130-140 this morning, she was extremely anxious and we had to give her some Ativan to calm her down. PHYSICAL EXAMINATION: GENERAL: However, when I saw her this afternoon, she was resting flat, comfortably in bed, in no apparent distress, pale, no jaundice, cyanosis or thyromegaly. No jugular venous distention. No limb edema. VITAL SIGNS: Her heart rate was 94, blood pressure was 110/77, temperature was 98.2, respiratory rate 20, and oxygen saturation was 98%. The rest of clinical examination is stable and has not really changed. Her intake over the last 24 hours was 2000, output was 1700. LABORATORY DATA: This morning, showed her white cell count was 10,300, hemoglobin 13.6, hematocrit 40.4, MCV 94 and platelet count of 231,000. Her chemistry showed a serum sodium of 145, potassium 4.1, chloride 113, bicarbonate 25, anion gap of 7, BUN 27, creatinine 1.6, estimated GFR was 32 mL per minute. Her glucose 117, calcium was 9.7. Total bilirubin, AST, ALT, alkaline phosphatase were normal. Total protein was 6.6, albumin 3.4. ASSESSMENT: 1. Bipolar affective disorder. 2. Delusional disorder. 3. Anxiety. 4. Dementia, vascular, with depression, and impulse control disorder. 5. Acute kidney injury with a BUN and creatinine trending upward. 6. Urinary tract infection, resolved. PLAN: To continue IV fluid. I held her lisinopril and hydrochlorothiazide. Her blood pressure remains well controlled. Her BUN and creatinine are trending down, as of this morning, her BUN was 27, creatinine was 1.6 mg/dL. KRISTOFER NAJERA MD DR: CASSANDRA/fernando JOB#: [id number] / [id number]
[2017-03-25] MEDS: IV NORMAL SALINE 1,000ML 1,000 ML IV SCH (05:06)
[2017-03-25] MEDS: LEVOTHYROXINE 25 MCG TABLET. PO SCH (05:06)
[2017-03-25 06:10] VITALS: BP 154/95
[2017-03-25 07:01] LABS: CALCIUM 9.7 mg/dL (8.5-10.1); CREATININE 1.1 mg/dL (0.6-1.0); GFR 49.8; POTASSIUM 3.8 mmol/L (3.5-5.1)
[2017-03-25] MEDS ORDERED: LITHIUM CARBONATE 300 MG TABLET PO SCH (08:00)
[2017-03-25] MEDS: PANTOPRAZOLE 40 MG TABLET. PO SCH (08:34)
[2017-03-25] MEDS: DOCUSATE SODIUM 100 MG CAPSULE PO SCH (08:35)
[2017-03-25] MEDS: POTASSIUM CHLORIDE 10 MEQ TABLET.ER. PO SCH (08:35)
[2017-03-25] MEDS: METOPROLOL TART IMMED RELEASE 25 MG TABLET PO SCH (08:36)
--- NOTE | 2017-03-25 09:41 | PN ---
DATE: 03/24/2017 SUBJECTIVE: This note covers elements not covered in my initial note of 03/24/217. Discussed with nursing staff, reviewed the chart. Overall, the patient continues to be paranoid, suspicious, talking about "I lied." Speech does not seem intelligible. Associations are loose. MENTAL STATUS EXAM: Eye contact somewhat poor. Speech is rambling. Thought processes are somewhat loose. She remains psychotic. No active suicidal or homicidal ideation. Attention span short. LABORATORY DATA: [place] level is 1.3. Rest of the labs are unremarkable, CBC, chemistry profile other than elevation of chloride at 113, BUN 27, creatinine 1.6. IMPRESSION: Unchanged from initial note. PLAN: [place] carbonate is 300 mg b.i.d. We will go ahead and drop it to 150 mg in the morning and 300 mg in the evening. Check another lithium level in 2 days. Reportedly, a guardian may be appointed for the patient and then we could transfer [facility]. EULALIA NANCE MD DR: ELLIS/fernando JOB#: [id number] / [id number]
[2017-03-25 10:31] VITALS: BP 128/87
[2017-03-25] MEDS ORDERED: ACET500T68 PO (15:36)
[2017-03-25] MEDS ORDERED: LITH150C PO (15:38)
[2017-03-25] MEDS ORDERED: TRAZ-90 PO (15:38)
[2017-03-25] MEDS ORDERED: RISP2TAB33 PO (15:38)
[2017-03-25] MEDS ORDERED: RIVA10TA PO (15:38)
[2017-03-25] MEDS ORDERED: METO25TA4 PO (15:38)
[2017-03-25] MEDS ORDERED: traZODone 100 MG TABLET. PO SCH (15:45)
[2017-03-25] MEDS ORDERED: ACETAMINOPHEN 500 MG TABLET PO SCH (15:45)
[2017-03-25] MEDS ORDERED: RIVAROXABAN 10 MG TABLET. PO SCH (17:00)
[2017-03-25] MEDS ORDERED: risperiDONE 2 MG TABLET. PO SCH (21:00)
[2017-03-25] MEDS ORDERED: LITHIUM CARBONATE 150 MG CAPSULE. PO SCH (21:00)
[2017-03-25] MEDS ORDERED: LITHIUM CARBONATE PO SCH (21:00)
[2017-03-25] MEDS ORDERED: METOPROLOL TART IMMED RELEASE 25 MG TABLET PO SCH (21:00)
--- NOTE | 2017-03-25 21:48 | DS ---
DATE OF DISCHARGE: 03/25/2017 HISTORY OF PRESENT ILLNESS: The patient is a 67-year-old female patient who was admitted on 03/15/2017 with altered mental status. She was very lethargic and having difficulty expressing herself states that her medications are messed up. She was seen in consultation by Dr. Brown and she was diagnosed with affective bipolar disorder. She continued to be on lithium 300 mg twice a day. She went also in acute kidney injury with a creatinine that has risen to 3.7, for which we discontinued her lisinopril and hydrochlorothiazide, started on IV fluid and her creatinine came down from 3.7 to 1.1. Her BUN also normalized from 45 down to 16, and she was more lucid today. She signed herself to be [facility] to [facility], and therefore, she was discharged for inpatient psychiatric stabilization. PHYSICAL EXAMINATION: GENERAL: On examining her today, she looked well and was clearly in no apparent respiratory distress, pale, but no jaundice, cyanosis, or thyromegaly. No jugular venous distention. No limb edema. VITAL SIGNS: Her heart rate was 101, blood pressure 128/87, temperature was 99.1, respiratory rate was 20, and oxygen saturation was 98% on room air. HEAD, EYES, EARS, NOSE AND THROAT: Showed normocephalic, atraumatic. NECK: Supple. HEART: Showed normal first and second heart sounds with no gallop, rub or murmur. CHEST: Clear to auscultation. No crepitation or rhonchi. ABDOMEN: Distended, soft, nontender. No guarding or rigidity. No organomegaly. Hernial orifices intact. Bowel sounds normal. NEUROLOGIC: She is more awake today, alert, although continued to be confused. All cranial nerves intact. She moves extremities without difficulty. She ambulates without assistance or assistive devices. Her intake over the last 24 hours was 3885, output was 3150. LABORATORY DATA: As of this morning, her serum sodium was 150, potassium 3.8, chloride 115, bicarbonate 27, anion gap of 8, BUN 16, creatinine 1.1, estimated GFR was 49 mL per minute. Her glucose 124, calcium was 9.7. Her white cell count was 10,300, hemoglobin 13.6, hematocrit 40, MCV 94 and platelet count 231,000. Her prothrombin time was 11.9, INR 1.2, aPTT was 27. DISCHARGE MEDICATIONS: The patient was discharged to continue on lithium carbonate 300 mg daily and lithium carbonate 150 mg at bedtime, risperidone 2 mg at bedtime and diltiazem 240 mg daily, Tylenol 650 mg every 4 hours, rivaroxaban 15 mg daily, metoprolol tartrate 12.5 mg twice a day, trazodone 100 mg at bedtime, levothyroxine 25 mcg once a day, Singulair 10 mg at bedtime, atorvastatin 20 mg at bedtime, Protonix 40 mg twice a day, Colace 100 mg twice a day, potassium chloride 10 mEq once a day. FINAL DISCHARGE DIAGNOSES: 1. Bipolar affective disorder. 2. Delusional disorder. 3. Anxiety. 4. Dementia, vascular depression, impulse control disorder. 5. Acute kidney injury with a BUN and creatinine that has improved. In fact today's BUN was 16 and creatinine is 1.1l. 6. Hypernatremia with serum sodium 150. 7. Urinary tract infection, resolved. KRISTOFER NAJERA MD DR: CASSANDRA/fernando JOB#: [id number] / [id number]
== END 2017-03-25 15:46 | DRG 871 ==
LOC: ER 22:48 → 1 SOUTH 03-15 02:30
PROVIDERS: ADMIT Internal Medicine; ATTEND Internal Medicine
DX: A41.9 Sepsis, unspecified organism (principal); N17.0 Acute kidney failure with tubular necrosis; E87.0 Hyperosmolality and hypernatremia; F31.64 Bipolar disorder, current episode mixed, severe, with psychotic features; E86.9 Volume depletion, unspecified; I48.0 Paroxysmal atrial fibrillation; N39.0 Urinary tract infection, site not specified; F01.51 Vascular dementia, unspecified severity, with behavioral disturbance; I49.5 Sick sinus syndrome; G30.9 Alzheimer's disease, unspecified; E03.9 Hypothyroidism, unspecified; E87.6 Hypokalemia; F02.80 Dementia in other diseases classified elsewhere, unspecified severity, without behavioral disturbance, psychotic disturbance, mood disturbance, and anxiety; F41.9 Anxiety disorder, unspecified; F63.9 Impulse disorder, unspecified; G89.4 Chronic pain syndrome; E05.90 Thyrotoxicosis, unspecified without thyrotoxic crisis or storm; G43.909 Migraine, unspecified, not intractable, without status migrainosus; R74.8 Abnormal levels of other serum enzymes; K29.70 Gastritis, unspecified, without bleeding; M79.7 Fibromyalgia; Z79.899 Other long term (current) drug therapy; Z86.73 Personal history of transient ischemic attack (TIA), and cerebral infarction without residual deficits; Z87.891 Personal history of nicotine dependence; Z90.49 Acquired absence of other specified parts of digestive tract; Z90.710 Acquired absence of both cervix and uterus; Z91.81 History of falling; Z88.6 Allergy status to analgesic agent; Z88.8 Allergy status to other drugs, medicaments and biological substances; Z91.83 Wandering in diseases classified elsewhere; I95.2 Hypotension due to drugs; T42.4X5A Adverse effect of benzodiazepines, initial encounter; Y92.89 Other specified places as the place of occurrence of the external cause
CPT/HCPCS: 36415; 70450; 71010; 80048; 80053; 80076; 80178; 80307; 81001; 82140; 82550; 83605; 83735; 83880; 84443; 84484; 85007; 85025; 85027; 85610; 85730; 87040; 87086; 93005; 96361; 96365; G0238; G0480; J0696; J3490; 97116; 97530; 99285-25; G0479; J7030

== ENCOUNTER 2017-03-25 16:35 | Inpatient (IN) | payer MEDICARE, OTHER ==
[~2017-03-25] VITALS: Ht 162.6 cm; Wt 77.4 kg
[~2017-03-25 16:35] MED LIST changes: +ACET500T68 PO; +DILT240T8 PO; +DOCU100C20 PO; +DONE10TA7 PO; +GABA600T2 PO; +LISI1TAB5 PO; +LITH150C PO; +LITH300T3 PO; -LOSA1TAB17 PO; +LOSA1TAB22 PO; +METO25TA4 PO; +POTA10TA10 PO; +RAME8TAB19 PO; +RISP2TAB33 PO; +RIVA10TA PO; +TRAZ-90 PO; +VORT10TA PO
[2017-03-25] MEDS ORDERED: ACETAMINOPHEN 500 MG TABLET PO SCH (16:45)
[2017-03-25] MEDS ORDERED: traZODone 100 MG TABLET. PO PRN (16:45)
[2017-03-25] MEDS: LITHIUM CARBONATE 300 MG TABLET PO SCH (17:00)
[2017-03-25] MEDS ORDERED: RIVAROXABAN 15 MG TABLET. PO SCH (17:00)
[2017-03-25 17:24] VITALS: BP 131/80
[2017-03-25 19:11] VITALS: BP 148/84
--- NOTE | 2017-03-25 20:02 | PDOC ---
Exam Dixon Demential Exam: Dixon Note: Please also refer to the separate dictated note~for this date of service dictated separately.~Patient seen individually. Discussed the patient with Nursing staff reviewed the chart.~Reviewed interim history and current functioning. Reviewed vital signs,~Labs/ Radiology~and current medications noted below. Continue current treatment with the changes noted in the dictated addendum note Assessment: Vital Signs: Vital Signs Date Time Temp Pulse Resp B/P (MAP) Pulse Ox O2 Delivery O2 Flow Rate FiO2 03/25/17 19:11 98.7 97 22 148/84 (105) 98 03/25/17 17:24 Room Air I&O Intake and Output 03/26/17 06:59 Intake Total 120 ml Balance 120 ml Intake Oral 120 ml # Bowel Movements 1 Labs: Laboratory Tests Test 03/25/17 06:39 Magnesium Level 1.7 mg/dL (1.8-2.4) L Current Medications: Meds: Current Medications Acetaminophen (Tylenol) 650 mg PRN Q6HRS PRN PO PAIN / TEMP; Start 03/25/17 at 16:45 Multi-Ingredient Ointment (Analgesic [place]) 1 zeus PRN QID PRN TP MUSCLE PAIN; Start 03/25/17 at 16:45 Al Hydroxide/Mg Hydroxide (Mylanta Plus Xs) 15 ml PRN AFTMEALHC PRN PO DYSPEPSIA; Start 03/25/17 at 16:45 Magnesium Hydroxide (Milk Of Magnesia) 2,400 mg PRN QHS PRN PO CONSTIPATION; Start 03/25/17 at 16:45 Acetaminophen (Tylenol) 500 mg PRN Q6HRS PO ; Start 03/25/17 at 16:45 Atorvastatin Calcium (Lipitor) 20 mg QHS PO ; Start 03/25/17 at 21:00 Docusate Sodium (Colace) 100 mg BID PO ; Start 03/25/17 at 21:00 Levothyroxine Sodium (Synthroid) 25 mcg DAILY06 PO ; Start 03/26/17 at 06:00 Metoprolol Tartrate (Lopressor) 25 mg BID PO ; Start 03/25/17 at 21:00 Montelukast Sodium (Singulair) 10 mg HS PO ; Start 03/25/17 at 21:00 Pantoprazole Sodium (Protonix) 40 mg BID PO ; Start 03/25/17 at 21:00 Risperidone (RisperDAL) 2 mg QHS PO ; Start 03/25/17 at 21:00 Rivaroxaban (Xarelto) 15 mg DAILYWSUP PO ; Start 03/25/17 at 17:00 Trazodone HCl (Desyrel) 100 mg PRN QHS PRN PO INSOMNIA; Start 03/25/17 at 16:45 Diltiazem HCl (Cardizem 24hr Cd) 240 mg DAILY PO ; Start 03/26/17 at 09:00 [place] Carbonate 150 mg QHS PO ; Start 03/25/17 at 21:00 [place] Carbonate 300 mg DAILY PO ; Start 03/25/17 at 17:00 Potassium Chloride (Klor-Con) 10 meq DAILYWBKFT PO ; Start 03/26/17 at 08:00 Active Scripts Active Reported Trazodone Hcl 100 Mg Tablet 1 Tab PO PRN QHS Risperdal (Risperidone) 2 Mg Tablet 1 Tab PO QHS Xarelto (Rivaroxaban) 10 Mg Tablet 15 Mg PO DAILYWSUP Metoprolol Tartrate 25 Mg Tablet 1 Tab PO BID [place] Carbonate 150 Mg Capsule 1 Cap PO HS Acetaminophen 500 Mg Tablet 1 Tab PO PRN Q6HRS [place] Carbonate 300 Mg Tablet 300 Mg PO DAILY Pantoprazole Sodium 40 Mg Tablet.dr 40 Mg PO BID Doc-Q-Lace (Docusate Sodium) 100 Mg Capsule 100 Mg PO BID Potassium Chloride 10 Meq Tablet.er 10 Meq PO DAILYWBKFT Diltiazem 24Hr ER (Diltiazem HCl) 240 Mg Tab.er.24h 240 Mg PO DAILY Atorvastatin Calcium 20 Mg Tablet 20 Mg PO QHS NOT GIVEN IN THE HOSPITAL NEXT DOSE DUE: DATE: RESTART TODAY TIME: AT BEDTIME Levothyroxine Sodium 25 Mcg Tablet 1 Tab PO DAILY07 LAST DOSE GIVEN: DATE:TODAY TIME: BEFORE BREAKFAST NEXT DOSE DUE: DATE: TOMORROW TIME: BEFORE BREAKFAST Singulair Tablet (Montelukast Sodium) 10 Mg Tablet 10 Mg PO HS NOT GIVEN IN HOSPITAL NEXT DOSE DUE: DATE: RESTART TODAY TIME: AT BEDTIME Diagnosis: Problems: (1) Bipolar affective disorder (2) Delusional disorder (3) Anxiety disorder (4) Bipolar affective, mixed, sev w/ psych (5) Dementia, vascular, with depression (6) Dementia, vascular, with delusions (7) Anxiety disorder (8) Impulse control disorder (9) Bipolar affective, mixed, sev w/ psych (10) Bipolar affective disorder EULALIA NANCE MD Mar 25, 2017 20:02
[2017-03-25] MEDS: risperiDONE 2 MG TABLET. PO SCH (20:35)
[2017-03-25] MEDS: DOCUSATE SODIUM 100 MG CAPSULE PO SCH (20:35)
[2017-03-25] MEDS: MONTELUKAST 10 MG TABLET. PO SCH (20:36)
[2017-03-25] MEDS: PANTOPRAZOLE 40 MG TABLET. PO SCH (20:36)
[2017-03-25] MEDS: METOPROLOL TART IMMED RELEASE 25 MG TABLET PO SCH (20:36)
[2017-03-25] MEDS: LITHIUM CARBONATE 150 MG CAPSULE. PO SCH (20:36)
[2017-03-25] MEDS: ATORVASTATIN CALCIUM 20 MG TABLET PO SCH (20:37)
[2017-03-26 04:09] LABS: HEMOGLOBIN A1C 5.2 % (4.8-5.6)
[2017-03-26] MEDS: LEVOTHYROXINE 25 MCG TABLET. PO SCH (05:01)
[2017-03-26 05:41] VITALS: BP 133/83
[2017-03-26 06:09] LABS: T3 TOTAL 90 ng/dL (71-180); THYROXINE 9.9 ug/dL (4.5-12.0)
[2017-03-26] MEDS: DOCUSATE SODIUM 100 MG CAPSULE PO SCH ×2 (08:17→19:44)
[2017-03-26] MEDS: METOPROLOL TART IMMED RELEASE 25 MG TABLET PO SCH ×2 (08:17→19:44)
[2017-03-26] MEDS: LITHIUM CARBONATE 300 MG TABLET PO SCH (08:17)
[2017-03-26] MEDS: PANTOPRAZOLE 40 MG TABLET. PO SCH ×2 (08:18→19:43)
[2017-03-26] MEDS: POTASSIUM CHLORIDE 10 MEQ TABLET.ER. PO SCH (08:19)
[2017-03-26 16:32] VITALS: BP 118/87
[2017-03-26 17:16] LABS: ALBUMIN 4.1 g/dL (3.4-5.0); ALBUMIN/GLOBULIN RATIO 1.1 (1.0-1.7); CALCIUM 10.2 mg/dL (8.5-10.1); GFR 55.6; POTASSIUM 4.2 mmol/L (3.5-5.1); TOTAL BILIRUBIN 0.4 mg/dL (0.2-1.0); TOTAL PROTEIN 7.7 g/dL (6.4-8.2)
--- NOTE | 2017-03-26 17:20 | HP ---
ADMIT DATE: 03/25/2017 PSYCHIATRIC ADMISSION HISTORY/EVALUATION This is a late entry, 03/25, covers elements not covered in my initial note of 03/25. IDENTIFYING DATA: The patient is a 67-year-old female referred to us from [facility] by Dr. Kim, her primary care physician on account of worsening psychosis within the context of her schizoaffective disorder, bipolar type versus bipolar 1 disorder, mixed with psychotic features and a failure of outpatient psychiatric interventions and adjustments in her psychotropics, which I made while she was on [address] [place] [address] Medical/Surgical floor being stabilized medically. CHIEF COMPLAINT: "One half of my brain seems clearer, but the other half is very fuzzy." "No, I am not hallucinating." The patient is difficult to understand speech, somewhat low in rate and rhythm, low in volume and latency associations at times loose." HISTORY OF PRESENT ILLNESS: The patient has a history of bipolar 1 disorder, mixed with psychotic features versus schizoaffective disorder, bipolar type, mixed with psychotic features, worsening memory deficits. She has been treated at the [facility], outpatient on lithium and atypical antipsychotics and despite this recently, she has been increasingly psychotic, disorganized, disruptive, hallucinating. She was admitted to [address] [place] [address] for medical stabilization, remained extremely psychotic and I had followed her there from a psychiatric standpoint. We had adjusted her lithium to get it therapeutic, but the last level was 1.3 and we reduce the lithium since creatinine clearance was approximately 35, somewhat low. She was also started on Risperdal, seemed to do a little better, still remains psychotic, disorganized. She normally lives alone at home and it was felt unsafe for her to go outpatient treatment and she was transferred to our service. At one point during her stay on [address] [place] [address], she was quite confused, unable to consent for her transfer to [facility], but morning of 03/25, nursing staff assessed, she was able to understand her decision, wanting to be transferred to the [facility] as we had recommended for psychiatric stabilization. It was felt she was able to make this decision, understood where she was going, why she was going, remembered the circumstances of her previous hospitalization and activities on the unit and consented to this. PAST PSYCHIATRIC HISTORY: Long history of bipolar 1 disorder, mixed with psychotic features versus schizoaffective disorder, bipolar type, with psychotic features, progressive memory deficits. PAST MEDICAL HISTORY: Positive for tachycardia, renal insufficiency, status post CVA, hypothyroidism, chronic pain, hypertension, UTI, fibromyalgia, back pain, coronary artery disease, hyperlipidemia, COPD, GERD, leukocytosis. ALLERGIES: CODEINE, LOSARTAN, MORPHINE, METOCLOPRAMIDE. PRIMARY CARE PHYSICIAN: Dr. Sánchez Rodriguez. FAMILY HISTORY: Noncontributory. SOCIAL HISTORY: The patient lives alone at home by herself, but her ex- has been very supportive of her and helps out. No alcohol, drug abuse, physical, sexual or elder abuse history is noted. She is not known to be a perpetrator. REACTION TO HOSPITALIZATION: The patient is accepting of this understanding of these assets when the patient's bipolar disorder stabilizes. She seems cognitively fairly intact. She is cooperative with cares at the time of admission. MENTAL STATUS EXAMINATION: Oriented x 4. She was quite verbal, open. I discussed with nursing staff several times during the day on 03/25. Speech has some latency, coherent. Abstraction fair, computation impaired, language function intact. Her attention span short. She is still paranoid, somewhat suspicious believe, half a brain is working better than the other half. No active suicidal or homicidal ideation. LABORATORY DATA: Reviewed. IMPRESSION: Bipolar 1 disorder, mixed with psychotic features versus schizoaffective disorder, bipolar type, mixed with psychotic features; major neurocognitive disorder, early vascular with delusion, behavioral disturbance; history of depression, anxiety disorder, unspecified; impulse control disorder, unspecified. Rest unchanged as above. PLAN: Admit to the geropsychiatry unit at [facility]. I will see the patient daily individually from a psychiatric standpoint. Medical followup per Dr. Hall/Dr. Kim. [place] was reduced to 150 mg in the morning and 300 at night. We will repeat the lithium level, CBC, CMP. Maintain Risperdal and the rest of her psychotropics adjust further as clinically indicated. If needed, we may have to change lithium to an alternate mood stabilizers, Depakote or Trileptal if she is unable to tolerate due to renal dysfunction, but we will decide as the hospitalization progresses. EULALIA NANCE MD DR: ELLIS/fernando JOB#: [id number] / [id number]
[2017-03-26] MEDS: ATORVASTATIN CALCIUM 20 MG TABLET PO SCH (19:43)
[2017-03-26] MEDS: risperiDONE 2 MG TABLET. PO SCH (19:44)
[2017-03-26] MEDS: MONTELUKAST 10 MG TABLET. PO SCH (19:44)
[2017-03-26] MEDS: traZODone 100 MG TABLET. PO SCH (19:44)
[2017-03-26] MEDS: LITHIUM CARBONATE 150 MG CAPSULE. PO SCH (19:44)
[2017-03-26] MEDS: MAGNESIUM OXIDE 400 MG TABLET PO SCH (19:45)
--- NOTE | 2017-03-26 20:21 | PDOC ---
Exam Dixon Demential Exam: Dixon Note: Please also refer to the separate dictated note~for this date of service dictated separately.~Patient seen individually. Discussed the patient with Nursing staff reviewed the chart.~Reviewed interim history and current functioning. Reviewed vital signs,~Labs/ Radiology~and current medications noted below. Continue current treatment with the changes noted in the dictated addendum note Assessment: Vital Signs: Vital Signs Date Time Temp Pulse Resp B/P (MAP) Pulse Ox O2 Delivery O2 Flow Rate FiO2 03/26/17 19:44 76 118/87 03/26/17 16:32 97.7 18 98 Room Air I&O Intake and Output 03/27/17 07:00 Intake Total 1080 ml Balance 1080 ml Intake Oral 1080 ml Labs: Laboratory Tests Test 03/26/17 16:53 Sodium Level 147 mmol/L (136-145) H Potassium Level 4.2 mmol/L (3.5-5.1) Chloride Level 111 mmol/L (98-107) H Carbon Dioxide Level 29 mmol/L (21-32) Anion Gap 7 (6-14) Blood Urea Nitrogen 15 mg/dL (7-20) Creatinine 1.0 mg/dL (0.6-1.0) Estimated GFR (Cockcroft-Gault) 55.6 BUN/Creatinine Ratio 15 (6-20) Glucose Level 96 mg/dL (70-99) Calcium Level 10.2 mg/dL (8.5-10.1) H Total Bilirubin 0.4 mg/dL (0.2-1.0) Aspartate Amino Transferase (AST) 25 U/L (15-37) Alanine Aminotransferase (ALT) 52 U/L (14-59) Alkaline Phosphatase 127 U/L (46-116) H Total Protein 7.7 g/dL (6.4-8.2) Albumin 4.1 g/dL (3.4-5.0) Albumin/Globulin Ratio 1.1 (1.0-1.7) Current Medications: Meds: Current Medications Acetaminophen (Tylenol) 650 mg PRN Q6HRS PRN PO PAIN / TEMP; Start 03/25/17 at 16:45 Multi-Ingredient Ointment (Analgesic [place]) 1 zeus PRN QID PRN TP MUSCLE PAIN; Start 03/25/17 at 16:45 Al Hydroxide/Mg Hydroxide (Mylanta Plus Xs) 15 ml PRN AFTMEALHC PRN PO DYSPEPSIA; Start 03/25/17 at 16:45 Magnesium Hydroxide (Milk Of Magnesia) 2,400 mg PRN QHS PRN PO CONSTIPATION; Start 03/25/17 at 16:45 Acetaminophen (Tylenol) 500 mg PRN Q6HRS PO ; Start 03/25/17 at 16:45 Atorvastatin Calcium (Lipitor) 20 mg QHS PO Last administered on 03/26/17 19: 43; Start 03/25/17 at 21:00 Docusate Sodium (Colace) 100 mg BID PO Last administered on 03/26/17 19:44; Start 03/25/17 at 21:00 Levothyroxine Sodium (Synthroid) 25 mcg DAILY06 PO Last administered on 05:01; Start 03/26/17 at 06:00 Metoprolol Tartrate (Lopressor) 25 mg BID PO Last administered on 03/26/17 19: 44; Start 03/25/17 at 21:00 Montelukast Sodium (Singulair) 10 mg HS PO Last administered on 03/26/17 19:44 ; Start 03/25/17 at 21:00 Pantoprazole Sodium (Protonix) 40 mg BID PO Last administered on 03/26/17 19: 43; Start 03/25/17 at 21:00 Risperidone (RisperDAL) 2 mg QHS PO Last administered on 03/26/17 19:44; Start 03/25/17 at 21:00 Rivaroxaban (Xarelto) 15 mg DAILYWSUP PO Last administered on 03/25/17 20:36; Start 03/25/17 at 17:00; Stop 03/26/17 at 18:03; Status DC Trazodone HCl (Desyrel) 100 mg PRN QHS PRN PO INSOMNIA; Start 03/25/17 at 16:45 ; Stop 03/26/17 at 18:44; Status DC Diltiazem HCl (Cardizem 24hr Cd) 240 mg DAILY PO Last administered on 08:19; Start 03/26/17 at 09:00 [place] Carbonate 150 mg QHS PO Last administered on 03/26/17 19:44; Start at 21:00 [place] Carbonate 300 mg DAILY PO Last administered on 03/26/17 08:17; Start 03/25/17 at 17:00 Potassium Chloride (Klor-Con) 10 meq DAILYWBKFT PO Last administered on 08:19; Start 03/26/17 at 08:00 Olanzapine (ZyPREXA ZYDIS) 2.5 mg PRN Q2HR PRN PO PSYCHOSIS/AGITATION; Start at 14:30 Vitamin D (Vitamin D3) 50,000 unit WEEKLY PO ; Start 04/02/17 at 09:00 Magnesium Oxide (Magnesium Oxide) 400 mg TID PO Last administered on 03/26/17 19:45; Start 03/26/17 at 21:00 Rivaroxaban (Xarelto) 20 mg DAILYWSUP PO ; Start 03/27/17 at 08:00 Trazodone HCl (Desyrel) 100 mg QHS PO Last administered on 03/26/17 19:44; Start 03/26/17 at 21:00 Trazodone HCl (Desyrel) 100 mg PRN QHS PRN PO INSOMNIA; Start 03/26/17 at 21:00 Active Scripts Active Reported Trazodone Hcl 100 Mg Tablet 1 Tab PO PRN QHS Risperdal (Risperidone) 2 Mg Tablet 1 Tab PO QHS Xarelto (Rivaroxaban) 10 Mg Tablet 20 Mg PO DAILYWSUP Metoprolol Tartrate 25 Mg Tablet 1 Tab PO BID [place] Carbonate 150 Mg Capsule 1 Cap PO HS Acetaminophen 500 Mg Tablet 1 Tab PO PRN Q6HRS [place] Carbonate 300 Mg Tablet 300 Mg PO DAILY Pantoprazole Sodium 40 Mg Tablet.dr 40 Mg PO BID Doc-Q-Lace (Docusate Sodium) 100 Mg Capsule 100 Mg PO BID Potassium Chloride 10 Meq Tablet.er 10 Meq PO DAILYWBKFT Diltiazem 24Hr ER (Diltiazem HCl) 240 Mg Tab.er.24h 240 Mg PO DAILY Atorvastatin Calcium 20 Mg Tablet 20 Mg PO QHS NOT GIVEN IN THE HOSPITAL NEXT DOSE DUE: DATE: RESTART TODAY TIME: AT BEDTIME Levothyroxine Sodium 25 Mcg Tablet 1 Tab PO DAILY07 LAST DOSE GIVEN: DATE:TODAY TIME: BEFORE BREAKFAST NEXT DOSE DUE: DATE: TOMORROW TIME: BEFORE BREAKFAST Singulair Tablet (Montelukast Sodium) 10 Mg Tablet 10 Mg PO HS NOT GIVEN IN HOSPITAL NEXT DOSE DUE: DATE: RESTART TODAY TIME: AT BEDTIME Diagnosis: Problems: (1) Anxiety disorder (2) Anxiety disorder (3) Bipolar affective disorder (4) Bipolar affective disorder (5) Impulse control disorder (6) Delusional disorder (7) Bipolar affective, mixed, sev w/ psych (8) Bipolar affective, mixed, sev w/ psych (9) Dementia, vascular, with depression (10) Dementia, vascular, with delusions EULALIA NANCE MD Mar 26, 2017 20:20
[2017-03-26] MEDS ORDERED: traZODone 100 MG TABLET. PO PRN (21:00)
[2017-03-27] MEDS: traZODone 100 MG TABLET. PO SCH ×2 (01:29→20:20)
[2017-03-27 06:06] VITALS: BP 144/82
[2017-03-27] MEDS: LEVOTHYROXINE 25 MCG TABLET. PO SCH (06:10)
[2017-03-27 07:40] LABS: THYROID STIM HORMONE (TSH) 3.335 uIU/mL (0.358-3.740)
[2017-03-27 07:41] LABS: LI 0.8 mmol/L (0.6-1.2)
[2017-03-27] MEDS: DOCUSATE SODIUM 100 MG CAPSULE PO SCH ×2 (08:14→20:19)
[2017-03-27] MEDS: MAGNESIUM OXIDE 400 MG TABLET PO SCH ×3 (08:14→20:18)
[2017-03-27] MEDS: LITHIUM CARBONATE 300 MG TABLET PO SCH (08:15)
[2017-03-27] MEDS: PANTOPRAZOLE 40 MG TABLET. PO SCH ×2 (08:15→20:19)
[2017-03-27] MEDS: POTASSIUM CHLORIDE 10 MEQ TABLET.ER. PO SCH (08:16)
[2017-03-27] MEDS: METOPROLOL TART IMMED RELEASE 25 MG TABLET PO SCH ×2 (08:16→20:19)
[2017-03-27 11:34] LABS: LI 0.5 mmol/L (0.6-1.2)
[2017-03-27 15:42] VITALS: BP 137/83
[2017-03-27] MEDS: RIVAROXABAN 10 MG TABLET. PO SCH (16:28)
--- NOTE | 2017-03-27 18:07 | CONS ---
DATE OF CONSULTATION: 03/26/2017 HISTORY OF PRESENT ILLNESS: The patient is a 67-year-old female patient who was transferred yesterday from [address] [place] [address] where she was admitted there originally on 03/15/2017. She was seen in consultation by Dr. Brown and she was found to have mild cognitive impairment, but probably she was diagnosed with bipolar 1 disorder, mixed with history of psychotic features; anxiety disorder with impulse control, unspecified and while she was in [address] [place] [address], she developed acute kidney injury. In fact, her creatinine has risen dramatically from 0.9 up to 3.7 for which, we discontinued her losartan and hydrochlorothiazide and started her on IV fluid and her kidney function has steadily improved. By the time she came here yesterday, her creatinine was down to 1.1 and BUN was 16. She did have some abnormal liver enzymes initially that has resolved and once she stabilized medically, she was admitted for inpatient psychiatric stabilization. PAST MEDICAL HISTORY: Significant for paroxysmal atrial fibrillation, tachybrady syndrome, anxiety, depression, history of fibromyalgia, lacunar infarct, hyperthyroidism, chronic pain syndrome. She had history of left leg fracture, history of oversedation and also polypharmacy. PAST SURGICAL HISTORY: Significant for cholecystectomy, hysterectomy, and left leg fracture, status post open reduction and internal fixation. ALLERGIES: She is allergic to CODEINE, METOCLOPRAMIDE, and MORPHINE. FAMILY HISTORY: Unremarkable. SOCIAL HISTORY: She is an ex-smoker. She does not smoke anymore, does not drink alcohol or use any recreational drugs. She was living with her ex-. MEDICATIONS: She was transferred to this facility to continue on following medications: She is on acetaminophen 500 mg every 6 hours, atorvastatin calcium 20 mg at bedtime, Diltiazem hydrochloride 40 mg extended release tablet once a day, Colace 100 mg once a day, levothyroxine sodium 25 mcg once a day, lithium carbonate 300 mg in the morning and 250 mg at bedtime, metoprolol tartrate 25 mg p.o. b.i.d. Montelukast for Singulair 10 mg at bedtime, Protonix 40 mg p.o. b.i.d., potassium chloride 10 mEq once a day, risperidone 2 mg at bedtime, rivaroxaban 50 mg daily, and trazodone 100 mg at bedtime as needed for insomnia. PHYSICAL EXAMINATION: GENERAL: On examining her today, she looked well and was clearly in no apparent respiratory distress. She was pale, but no jaundiced, cyanosis, or thyromegaly. No jugular venous distention. No limb edema. VITAL SIGNS: Her heart rate was 112, blood pressure was 133/83, temperature was 99.3, respiratory rate was 17 and oxygen saturation was 95% on room air. HEAD, EYES, EARS, NOSE AND THROAT: Normocephalic, atraumatic. NECK: Supple. HEART: Showed normal first and second heart sounds with no gallop, rub or murmur. CHEST: Clear to auscultation. No crepitation or rhonchi. ABDOMEN: Distended, soft, and nontender. No guarding or rigidity. No organomegaly. Hernial orifices intact. Bowel sounds normal. NEUROLOGIC: She was awake, alert, generally very confused; however, there is no obvious lateralizing sign. Her cranial nerves were intact. EXTREMITIES: She moves extremities without difficulty. She ambulates without assistance or assistive devices. LABORATORY DATA: Her lab work this morning showed that her magnesium was 1.7 mg/dL. Hemoglobin A1c was 5.2%, her 25-hydroxy vitamin D was 15.9. Her total T4 was 9.9 and total T3 was 90. As of yesterday, her white cell count was 10,300, hemoglobin 13.6, hematocrit 40.4, MCV 94, and platelet count 231,000. Her chemistry showed a serum sodium 150, potassium 3.8, chloride 115, bicarbonate 27, anion gap of 8, BUN 16, creatinine 1.1, estimated GFR was 49 mL per minute. Her glucose was 124, calcium was 9.7. ASSESSMENT: In summary, this is a 67-year-old female patient who was [facility] on account of bipolar schizoaffective disorder, delusional disorder, anxiety, dementia, vascular with impulse control disorder. She has multiple other medical problems including acute kidney injury that has dramatically improved. Her creatinine has risen to 3.7; by the time she arrived here, it was only 1.1. She unfortunately continued to have hypernatremia. Other medical problems including hypertension, hyperlipidemia, and hypothyroidism. PLAN: My plan is to continue to monitor her electrolytes and kidney function. Her thyroid function is normal and she could safely continue with the current dose of lithium. She probably need to push more fluid, to make sure that her sodium has come down. Thank you, Dr. Brown for allowing me to participate in the care of this patient. I have already put her on magnesium oxide 400 mg 3 times a day and start her on cholecalciferol 50,000 international units once a week for her vitamin D deficiency. KRISTOFER NAJERA MD DR: CASSANDRA/fernando JOB#: [id number] / [id number]
[2017-03-27] MEDS: ATORVASTATIN CALCIUM 20 MG TABLET PO SCH (20:18)
[2017-03-27] MEDS: MONTELUKAST 10 MG TABLET. PO SCH (20:19)
[2017-03-27] MEDS: risperiDONE 2 MG TABLET. PO SCH (20:19)
[2017-03-27] MEDS: LITHIUM CARBONATE 150 MG CAPSULE. PO SCH (20:21)
--- NOTE | 2017-03-27 22:43 | PDOC ---
Exam Dixon Demential Exam: Dixon Note: Please also refer to the separate dictated note~for this date of service dictated separately.~Patient seen individually. Discussed the patient with Nursing staff reviewed the chart.~Reviewed interim history and current functioning. Reviewed vital signs,~Labs/ Radiology~and current medications noted below. Continue current treatment with the changes noted in the dictated addendum note Assessment: Vital Signs: Vital Signs Date Time Temp Pulse Resp B/P (MAP) Pulse Ox O2 Delivery O2 Flow Rate FiO2 03/27/17 20:19 79 137/83 03/27/17 15:42 98.3 18 98 03/26/17 16:32 Room Air I&O Intake and Output 03/28/17 07:00 Intake Total 720 ml Balance 720 ml Intake Oral 720 ml Labs: Laboratory Tests Test 03/27/17 07:05 [place] Level 0.5 mmol/L (0.6-1.2) L [place] Last Dose Date 03/26/17 [place] Last Dose Time 2100 Current Medications: Meds: Current Medications Acetaminophen (Tylenol) 650 mg PRN Q6HRS PRN PO PAIN / TEMP; Start 03/25/17 at 16:45 Multi-Ingredient Ointment (Analgesic [place]) 1 zeus PRN QID PRN TP MUSCLE PAIN; Start 03/25/17 at 16:45 Al Hydroxide/Mg Hydroxide (Mylanta Plus Xs) 15 ml PRN AFTMEALHC PRN PO DYSPEPSIA; Start 03/25/17 at 16:45 Magnesium Hydroxide (Milk Of Magnesia) 2,400 mg PRN QHS PRN PO CONSTIPATION; Start 03/25/17 at 16:45 Acetaminophen (Tylenol) 500 mg PRN Q6HRS PO ; Start 03/25/17 at 16:45 Atorvastatin Calcium (Lipitor) 20 mg QHS PO Last administered on 03/27/17 20: 18; Start 03/25/17 at 21:00 Docusate Sodium (Colace) 100 mg BID PO Last administered on 03/27/17 20:19; Start 03/25/17 at 21:00 Levothyroxine Sodium (Synthroid) 25 mcg DAILY06 PO Last administered on 06:10; Start 03/26/17 at 06:00 Metoprolol Tartrate (Lopressor) 25 mg BID PO Last administered on 03/27/17 20: 19; Start 03/25/17 at 21:00 Montelukast Sodium (Singulair) 10 mg HS PO Last administered on 03/27/17 20:19 ; Start 03/25/17 at 21:00 Pantoprazole Sodium (Protonix) 40 mg BID PO Last administered on 03/27/17 20: 19; Start 03/25/17 at 21:00 Risperidone (RisperDAL) 2 mg QHS PO Last administered on 03/27/17 20:19; Start 03/25/17 at 21:00 Rivaroxaban (Xarelto) 15 mg DAILYWSUP PO Last administered on 03/25/17 20:36; Start 03/25/17 at 17:00; Stop 03/26/17 at 18:03; Status DC Trazodone HCl (Desyrel) 100 mg PRN QHS PRN PO INSOMNIA; Start 03/25/17 at 16:45 ; Stop 03/26/17 at 18:44; Status DC Diltiazem HCl (Cardizem 24hr Cd) 240 mg DAILY PO Last administered on 08:15; Start 03/26/17 at 09:00 [place] Carbonate 150 mg QHS PO Last administered on 03/26/17 19:44; Start at 21:00; Stop 03/27/17 at 19:13; Status DC [place] Carbonate 300 mg DAILY PO Last administered on 03/27/17 08:15; Start 03/25/17 at 17:00 Potassium Chloride (Klor-Con) 10 meq DAILYWBKFT PO Last administered on 08:16; Start 03/26/17 at 08:00 Olanzapine (ZyPREXA ZYDIS) 2.5 mg PRN Q2HR PRN PO PSYCHOSIS/AGITATION; Start at 14:30 Vitamin D (Vitamin D3) 50,000 unit WEEKLY PO ; Start 04/02/17 at 09:00 Magnesium Oxide (Magnesium Oxide) 400 mg TID PO Last administered on 03/27/17 20:18; Start 03/26/17 at 21:00 Rivaroxaban (Xarelto) 20 mg DAILYWSUP PO Last administered on 03/27/17 16:28; Start 03/27/17 at 08:00 Trazodone HCl (Desyrel) 100 mg QHS PO Last administered on 03/27/17 20:20; Start 03/26/17 at 21:00 Trazodone HCl (Desyrel) 100 mg PRN QHS PRN PO INSOMNIA; Start 03/26/17 at 21:00 [place] Carbonate 300 mg QHS PO Last administered on 03/27/17 20:21; Start at 21:00 Active Scripts Active Reported Trazodone Hcl 100 Mg Tablet 1 Tab PO PRN QHS Risperdal (Risperidone) 2 Mg Tablet 1 Tab PO QHS Xarelto (Rivaroxaban) 10 Mg Tablet 20 Mg PO DAILYWSUP Metoprolol Tartrate 25 Mg Tablet 1 Tab PO BID [place] Carbonate 150 Mg Capsule 1 Cap PO HS Acetaminophen 500 Mg Tablet 1 Tab PO PRN Q6HRS [place] Carbonate 300 Mg Tablet 300 Mg PO DAILY Pantoprazole Sodium 40 Mg Tablet.dr 40 Mg PO BID Doc-Q-Lace (Docusate Sodium) 100 Mg Capsule 100 Mg PO BID Potassium Chloride 10 Meq Tablet.er 10 Meq PO DAILYWBKFT Diltiazem 24Hr ER (Diltiazem HCl) 240 Mg Tab.er.24h 240 Mg PO DAILY Atorvastatin Calcium 20 Mg Tablet 20 Mg PO QHS NOT GIVEN IN THE HOSPITAL NEXT DOSE DUE: DATE: RESTART TODAY TIME: AT BEDTIME Levothyroxine Sodium 25 Mcg Tablet 1 Tab PO DAILY07 LAST DOSE GIVEN: DATE:TODAY TIME: BEFORE BREAKFAST NEXT DOSE DUE: DATE: TOMORROW TIME: BEFORE BREAKFAST Singulair Tablet (Montelukast Sodium) 10 Mg Tablet 10 Mg PO HS NOT GIVEN IN HOSPITAL NEXT DOSE DUE: DATE: RESTART TODAY TIME: AT BEDTIME Diagnosis: Problems: (1) Bipolar affective, mixed, sev w/ psych (2) Impulse control disorder (3) Anxiety disorder EULALIA NANCE MD Mar 27, 2017 22:43
[2017-03-28] MEDS: LEVOTHYROXINE 25 MCG TABLET. PO SCH (04:29)
[2017-03-28 05:45] VITALS: BP 149/83
--- NOTE | 2017-03-28 06:13 | PN ---
DATE: 03/26/2017 This late entry for 03/26/2017 covers elements not covered in my initial note of 03/26/2017. SUBJECTIVE: I met with the patient the evening of 03/26/2017. The patient slept about 5 hours the previous evening. She remains intermittently psychotic, paranoid, speaking under her breath, people were after her. I have discussed the patient [id number] with Dr. Kim. Her repeat labs and kidney function are back to normal and Dr. Kim feels we can continue and adjust the lithium as clinically indicated from a psychiatric standpoint. REVIEW OF SYSTEMS: Positive for some tiredness. No CV, , pulmonary, eye, ENT system symptoms on review. Reliability poor. MENTAL STATUS EXAM: Oriented to herself and situation. Speech is somewhat rambling under her breath at times, paranoid, abstraction fair, computation impaired, language function intact, attention span short. Mood and affect still somewhat anxious, withdrawn. LABORATORY DATA: Reviewed. IMPRESSION: Unchanged from initial note. PLAN: Increase trazodone to 100 mg at bedtime, scheduled plus, november repeat x 1 p.r.n. for insomnia. Continue lithium at current dosage. Repeat level in the morning of 03/27/2017. Maintain the rest unchanged including Risperdal 2 mg at bedtime. Adjust further as clinically indicated. Zyprexa p.r.n. Review drug interactions. Risk/benefit ratio favors no further change. MAN Chantell NANCE MD DR: ELLIS/fernando JOB#: [id number] / [id number]
[2017-03-28] MEDS: MAGNESIUM OXIDE 400 MG TABLET PO SCH ×3 (08:19→19:31)
[2017-03-28] MEDS: POTASSIUM CHLORIDE 10 MEQ TABLET.ER. PO SCH (08:19)
[2017-03-28] MEDS: METOPROLOL TART IMMED RELEASE 25 MG TABLET PO SCH ×2 (08:19→19:32)
[2017-03-28] MEDS: LITHIUM CARBONATE 300 MG TABLET PO SCH (08:20)
[2017-03-28] MEDS: DOCUSATE SODIUM 100 MG CAPSULE PO SCH ×2 (08:20→19:33)
[2017-03-28] MEDS: PANTOPRAZOLE 40 MG TABLET. PO SCH ×2 (08:20→19:32)
[2017-03-28] MEDS: RIVAROXABAN 10 MG TABLET. PO SCH (14:39)
[2017-03-28 16:01] VITALS: BP 114/73
[2017-03-28] MEDS: LITHIUM CARBONATE 150 MG CAPSULE. PO SCH (19:31)
[2017-03-28] MEDS: traZODone 100 MG TABLET. PO SCH (19:32)
[2017-03-28] MEDS: risperiDONE 2 MG TABLET. PO SCH (19:32)
[2017-03-28] MEDS: ATORVASTATIN CALCIUM 20 MG TABLET PO SCH (19:33)
[2017-03-28] MEDS: MONTELUKAST 10 MG TABLET. PO SCH (19:34)
--- NOTE | 2017-03-28 19:52 | PDOC ---
Exam Dixon Demential Exam: Dixon Note: Please also refer to the separate dictated note~for this date of service dictated separately.~Patient seen individually. Discussed the patient with Nursing staff reviewed the chart.~Reviewed interim history and current functioning. Reviewed vital signs,~Labs/ Radiology~and current medications noted below. Continue current treatment with the changes noted in the dictated addendum note Assessment: Vital Signs: Vital Signs Date Time Temp Pulse Resp B/P (MAP) Pulse Ox O2 Delivery O2 Flow Rate FiO2 03/28/17 19:32 73 114/73 03/28/17 16:01 98.8 20 95 03/26/17 16:32 Room Air I&O Intake and Output 03/29/17 07:00 Intake Total 780 ml Balance 780 ml Intake Oral 780 ml Current Medications: Meds: Current Medications Acetaminophen (Tylenol) 650 mg PRN Q6HRS PRN PO PAIN / TEMP; Start 03/25/17 at 16:45 Multi-Ingredient Ointment (Analgesic [place]) 1 zeus PRN QID PRN TP MUSCLE PAIN; Start 03/25/17 at 16:45 Al Hydroxide/Mg Hydroxide (Mylanta Plus Xs) 15 ml PRN AFTMEALHC PRN PO DYSPEPSIA; Start 03/25/17 at 16:45 Magnesium Hydroxide (Milk Of Magnesia) 2,400 mg PRN QHS PRN PO CONSTIPATION; Start 03/25/17 at 16:45 Acetaminophen (Tylenol) 500 mg PRN Q6HRS PO ; Start 03/25/17 at 16:45 Atorvastatin Calcium (Lipitor) 20 mg QHS PO Last administered on 03/28/17 19: 33; Start 03/25/17 at 21:00 Docusate Sodium (Colace) 100 mg BID PO Last administered on 03/28/17 19:33; Start 03/25/17 at 21:00 Levothyroxine Sodium (Synthroid) 25 mcg DAILY06 PO Last administered on 04:29; Start 03/26/17 at 06:00 Metoprolol Tartrate (Lopressor) 25 mg BID PO Last administered on 03/28/17 19: 32; Start 03/25/17 at 21:00 Montelukast Sodium (Singulair) 10 mg HS PO Last administered on 03/28/17 19:34 ; Start 03/25/17 at 21:00 Pantoprazole Sodium (Protonix) 40 mg BID PO Last administered on 03/28/17 19: 32; Start 03/25/17 at 21:00 Risperidone (RisperDAL) 2 mg QHS PO Last administered on 03/28/17 19:32; Start 03/25/17 at 21:00 Rivaroxaban (Xarelto) 15 mg DAILYWSUP PO Last administered on 03/25/17 20:36; Start 03/25/17 at 17:00; Stop 03/26/17 at 18:03; Status DC Trazodone HCl (Desyrel) 100 mg PRN QHS PRN PO INSOMNIA; Start 03/25/17 at 16:45 ; Stop 03/26/17 at 18:44; Status DC Diltiazem HCl (Cardizem 24hr Cd) 240 mg DAILY PO Last administered on 08:19; Start 03/26/17 at 09:00 [place] Carbonate 150 mg QHS PO Last administered on 03/26/17 19:44; Start at 21:00; Stop 03/27/17 at 19:13; Status DC [place] Carbonate 300 mg DAILY PO Last administered on 03/28/17 08:20; Start 03/25/17 at 17:00 Potassium Chloride (Klor-Con) 10 meq DAILYWBKFT PO Last administered on 08:19; Start 03/26/17 at 08:00 Olanzapine (ZyPREXA ZYDIS) 2.5 mg PRN Q2HR PRN PO PSYCHOSIS/AGITATION Last administered on 03/28/17 04:29; Start 03/26/17 at 14:30 Vitamin D (Vitamin D3) 50,000 unit WEEKLY PO ; Start 04/02/17 at 09:00 Magnesium Oxide (Magnesium Oxide) 400 mg TID PO Last administered on 03/28/17 19:31; Start 03/26/17 at 21:00 Rivaroxaban (Xarelto) 20 mg DAILYWSUP PO Last administered on 03/28/17 14:39; Start 03/27/17 at 08:00 Trazodone HCl (Desyrel) 100 mg QHS PO Last administered on 03/27/17 20:20; Start 03/26/17 at 21:00; Stop 03/28/17 at 18:59; Status DC Trazodone HCl (Desyrel) 100 mg PRN QHS PRN PO INSOMNIA; Start 03/26/17 at 21:00 ; Stop 03/28/17 at 18:59; Status DC [place] Carbonate 300 mg QHS PO Last administered on 03/28/17 19:31; Start at 21:00 Trazodone HCl (Desyrel) 150 mg PRN QHS PRN PO INSOMNIA; Start 03/28/17 at 21:00 Trazodone HCl (Desyrel) 150 mg QHS PO Last administered on 03/28/17 19:32; Start 03/28/17 at 21:00 Active Scripts Active Reported Trazodone Hcl 100 Mg Tablet 1 Tab PO PRN QHS Risperdal (Risperidone) 2 Mg Tablet 1 Tab PO QHS Xarelto (Rivaroxaban) 10 Mg Tablet 20 Mg PO DAILYWSUP Metoprolol Tartrate 25 Mg Tablet 1 Tab PO BID [place] Carbonate 150 Mg Capsule 1 Cap PO HS Acetaminophen 500 Mg Tablet 1 Tab PO PRN Q6HRS [place] Carbonate 300 Mg Tablet 300 Mg PO DAILY Pantoprazole Sodium 40 Mg Tablet.dr 40 Mg PO BID Doc-Q-Lace (Docusate Sodium) 100 Mg Capsule 100 Mg PO BID Potassium Chloride 10 Meq Tablet.er 10 Meq PO DAILYWBKFT Diltiazem 24Hr ER (Diltiazem HCl) 240 Mg Tab.er.24h 240 Mg PO DAILY Atorvastatin Calcium 20 Mg Tablet 20 Mg PO QHS NOT GIVEN IN THE HOSPITAL NEXT DOSE DUE: DATE: RESTART TODAY TIME: AT BEDTIME Levothyroxine Sodium 25 Mcg Tablet 1 Tab PO DAILY07 LAST DOSE GIVEN: DATE:TODAY TIME: BEFORE BREAKFAST NEXT DOSE DUE: DATE: TOMORROW TIME: BEFORE BREAKFAST Singulair Tablet (Montelukast Sodium) 10 Mg Tablet 10 Mg PO HS NOT GIVEN IN HOSPITAL NEXT DOSE DUE: DATE: RESTART TODAY TIME: AT BEDTIME Diagnosis: Problems: (1) Bipolar affective, mixed, sev w/ psych (2) Delusional disorder (3) Anxiety disorder (4) Anxiety disorder (5) Bipolar affective disorder (6) Bipolar affective disorder (7) Impulse control disorder (8) Bipolar affective, mixed, sev w/ psych (9) Dementia, vascular, with depression (10) Dementia, vascular, with delusions EULALIA NANCE MD Mar 28, 2017 19:52
--- NOTE | 2017-03-29 00:38 | PN ---
DATE: 03/27/2017 This is a late entry for 03/27/2017, covers the elements not covered in my initial note of 03/27/2017. Met with the patient in the evening of 03/27/2017. Overall, the patient is doing better, still anxious, cooperative, withdrawn and compliant with medications, somewhat paranoid, as I met with her the evening of 03/27/2017. REVIEW OF SYSTEMS: No CV, , pulmonary, eye, ENT system symptoms on review. She has vague somatic symptoms. MENTAL STATUS EXAM: Oriented to herself and situation. Speech has some latency on volume, coherent, abstraction fair. Computation impaired. Language function intact. Mood and affect somewhat anxious, at times labile. LABORATORY DATA: Reviewed. IMPRESSION: Unchanged from initial note. PLAN: [place] level is 0.5, we will increase the lithium to 300 mg twice a day since the renal function is back to normal. Check labs and a lithium level in 3 days. Maintain the rest of the psychotropics and change, reviewed drug interactions, risk/benefit ratio favors no further change. MAN Chantell NANCE MD DR: ELLIS/fernando JOB#: [id number] / [id number]
[2017-03-29] MEDS: LEVOTHYROXINE 25 MCG TABLET. PO SCH (05:21)
[2017-03-29 06:15] VITALS: BP 145/86
[2017-03-29] MEDS: PANTOPRAZOLE 40 MG TABLET. PO SCH ×2 (08:41→20:22)
[2017-03-29] MEDS: MAGNESIUM OXIDE 400 MG TABLET PO SCH ×3 (08:41→20:21)
[2017-03-29] MEDS: METOPROLOL TART IMMED RELEASE 25 MG TABLET PO SCH ×2 (08:42→20:23)
[2017-03-29] MEDS: DOCUSATE SODIUM 100 MG CAPSULE PO SCH ×2 (08:43→20:14)
[2017-03-29] MEDS: POTASSIUM CHLORIDE 10 MEQ TABLET.ER. PO SCH (08:43)
[2017-03-29] MEDS: LITHIUM CARBONATE 300 MG TABLET PO SCH (08:51)
[2017-03-29] MEDS: RIVAROXABAN 10 MG TABLET. PO SCH (16:05)
[2017-03-29 16:17] VITALS: BP 121/80
--- NOTE | 2017-03-29 19:48 | PDOC ---
Exam Dixon Demential Exam: Dixon Note: Please also refer to the separate dictated note~for this date of service dictated separately.~Patient seen individually. Discussed the patient with Nursing staff reviewed the chart.~Reviewed interim history and current functioning. Reviewed vital signs,~Labs/ Radiology~and current medications noted below. Continue current treatment with the changes noted in the dictated addendum note Assessment: Vital Signs: Vital Signs Date Time Temp Pulse Resp B/P (MAP) Pulse Ox O2 Delivery O2 Flow Rate FiO2 03/29/17 16:17 98.1 95 20 121/80 (94) 99 03/26/17 16:32 Room Air I&O Intake and Output 03/30/17 07:00 Intake Total 720 ml Balance 720 ml Intake Oral 720 ml Current Medications: Meds: Current Medications Acetaminophen (Tylenol) 650 mg PRN Q6HRS PRN PO PAIN / TEMP; Start 03/25/17 at 16:45 Multi-Ingredient Ointment (Analgesic [place]) 1 zeus PRN QID PRN TP MUSCLE PAIN; Start 03/25/17 at 16:45 Al Hydroxide/Mg Hydroxide (Mylanta Plus Xs) 15 ml PRN AFTMEALHC PRN PO DYSPEPSIA; Start 03/25/17 at 16:45 Magnesium Hydroxide (Milk Of Magnesia) 2,400 mg PRN QHS PRN PO CONSTIPATION; Start 03/25/17 at 16:45 Acetaminophen (Tylenol) 500 mg PRN Q6HRS PO ; Start 03/25/17 at 16:45 Atorvastatin Calcium (Lipitor) 20 mg QHS PO Last administered on 03/28/17 19: 33; Start 03/25/17 at 21:00 Docusate Sodium (Colace) 100 mg BID PO Last administered on 03/29/17 08:43; Start 03/25/17 at 21:00 Levothyroxine Sodium (Synthroid) 25 mcg DAILY06 PO Last administered on 05:21; Start 03/26/17 at 06:00 Metoprolol Tartrate (Lopressor) 25 mg BID PO Last administered on 03/29/17 08: 42; Start 03/25/17 at 21:00 Montelukast Sodium (Singulair) 10 mg HS PO Last administered on 03/28/17 19:34 ; Start 03/25/17 at 21:00 Pantoprazole Sodium (Protonix) 40 mg BID PO Last administered on 03/29/17 08: 41; Start 03/25/17 at 21:00 Risperidone (RisperDAL) 2 mg QHS PO Last administered on 03/28/17 19:32; Start 03/25/17 at 21:00; Stop 03/29/17 at 18:25; Status DC Rivaroxaban (Xarelto) 15 mg DAILYWSUP PO Last administered on 03/25/17 20:36; Start 03/25/17 at 17:00; Stop 03/26/17 at 18:03; Status DC Trazodone HCl (Desyrel) 100 mg PRN QHS PRN PO INSOMNIA; Start 03/25/17 at 16:45 ; Stop 03/26/17 at 18:44; Status DC Diltiazem HCl (Cardizem 24hr Cd) 240 mg DAILY PO Last administered on 08:42; Start 03/26/17 at 09:00 [place] Carbonate 150 mg QHS PO Last administered on 03/26/17 19:44; Start at 21:00; Stop 03/27/17 at 19:13; Status DC [place] Carbonate 300 mg DAILY PO Last administered on 03/29/17 08:51; Start 03/25/17 at 17:00 Potassium Chloride (Klor-Con) 10 meq DAILYWBKFT PO Last administered on 08:43; Start 03/26/17 at 08:00 Olanzapine (ZyPREXA ZYDIS) 2.5 mg PRN Q2HR PRN PO PSYCHOSIS/AGITATION Last administered on 03/28/17 04:29; Start 03/26/17 at 14:30 Vitamin D (Vitamin D3) 50,000 unit WEEKLY PO ; Start 04/02/17 at 09:00 Magnesium Oxide (Magnesium Oxide) 400 mg TID PO Last administered on 03/29/17 14:10; Start 03/26/17 at 21:00 Rivaroxaban (Xarelto) 20 mg DAILYWSUP PO Last administered on 03/29/17 16:05; Start 03/27/17 at 08:00 Trazodone HCl (Desyrel) 100 mg QHS PO Last administered on 03/27/17 20:20; Start 03/26/17 at 21:00; Stop 03/28/17 at 18:59; Status DC Trazodone HCl (Desyrel) 100 mg PRN QHS PRN PO INSOMNIA; Start 03/26/17 at 21:00 ; Stop 03/28/17 at 18:59; Status DC [place] Carbonate 300 mg QHS PO Last administered on 03/28/17 19:31; Start at 21:00 Trazodone HCl (Desyrel) 150 mg PRN QHS PRN PO INSOMNIA; Start 03/28/17 at 21:00 Trazodone HCl (Desyrel) 150 mg QHS PO Last administered on 03/28/17 19:32; Start 03/28/17 at 21:00 Risperidone (RisperDAL) 2 mg QHS PO ; Start 03/29/17 at 21:00 Risperidone (RisperDAL) 0.5 mg HS PO ; Start 03/29/17 at 21:00 Active Scripts Active Reported Trazodone Hcl 100 Mg Tablet 1 Tab PO PRN QHS Risperdal (Risperidone) 2 Mg Tablet 1 Tab PO QHS Xarelto (Rivaroxaban) 10 Mg Tablet 20 Mg PO DAILYWSUP Metoprolol Tartrate 25 Mg Tablet 1 Tab PO BID [place] Carbonate 150 Mg Capsule 1 Cap PO HS Acetaminophen 500 Mg Tablet 1 Tab PO PRN Q6HRS [place] Carbonate 300 Mg Tablet 300 Mg PO DAILY Pantoprazole Sodium 40 Mg Tablet.dr 40 Mg PO BID Doc-Q-Lace (Docusate Sodium) 100 Mg Capsule 100 Mg PO BID Potassium Chloride 10 Meq Tablet.er 10 Meq PO DAILYWBKFT Diltiazem 24Hr ER (Diltiazem HCl) 240 Mg Tab.er.24h 240 Mg PO DAILY Atorvastatin Calcium 20 Mg Tablet 20 Mg PO QHS NOT GIVEN IN THE HOSPITAL NEXT DOSE DUE: DATE: RESTART TODAY TIME: AT BEDTIME Levothyroxine Sodium 25 Mcg Tablet 1 Tab PO DAILY07 LAST DOSE GIVEN: DATE:TODAY TIME: BEFORE BREAKFAST NEXT DOSE DUE: DATE: TOMORROW TIME: BEFORE BREAKFAST Singulair Tablet (Montelukast Sodium) 10 Mg Tablet 10 Mg PO HS NOT GIVEN IN HOSPITAL NEXT DOSE DUE: DATE: RESTART TODAY TIME: AT BEDTIME Diagnosis: Problems: (1) Anxiety disorder (2) Anxiety disorder (3) Bipolar affective disorder (4) Bipolar affective disorder (5) Impulse control disorder (6) Delusional disorder (7) Bipolar affective, mixed, sev w/ psych (8) Bipolar affective, mixed, sev w/ psych (9) Dementia, vascular, with depression (10) Dementia, vascular, with delusions EULALIA NANCE MD Mar 29, 2017 19:48
[2017-03-29] MEDS: LITHIUM CARBONATE 150 MG CAPSULE. PO SCH (20:14)
[2017-03-29] MEDS: ATORVASTATIN CALCIUM 20 MG TABLET PO SCH (20:14)
[2017-03-29] MEDS: MONTELUKAST 10 MG TABLET. PO SCH (20:21)
[2017-03-29] MEDS: risperiDONE 0.5 MG TABLET. PO SCH (20:21)
[2017-03-29] MEDS: risperiDONE 2 MG TABLET. PO SCH (20:22)
[2017-03-29] MEDS: traZODone 100 MG TABLET. PO SCH (20:22)
[2017-03-30] MEDS: traZODone 100 MG TABLET. PO PRN (00:03)
--- NOTE | 2017-03-30 05:25 | PN ---
DATE: 03/28/2017 This late entry 03/28/2017 covers elements not covered in my initial note of 03/28/2017. SUBJECTIVE: The patient slept 6-3/4 hours previous evening, but states she did not sleep well the previous night. She has been more confused, anxious, obsessive, paranoid during the day 03/28/2017, quite a change from 03/27/2017, spent much of the day in her room, pacing, anxious, suspicious of her medications. I met with her at some length in her room. REVIEW OF SYSTEMS: Vague, somatic symptoms. No CV, , pulmonary, eye, ENT, integumentary system symptoms on review. MENTAL STATUS EXAM: Oriented to herself and situation. Speech, low in volume, rapid at times. Abstraction fair, computation impaired, language function intact, seems quite paranoid. No active suicidal or homicidal ideation. LABORATORY DATA: Reviewed. IMPRESSION: Bipolar 1 disorder, mixed with psychotic features. Rest unchanged. PLAN: [place] level is 0.5. We will maintain lithium carbonate 300 b.i.d., Risperdal is 2 mg at bedtime, trazodone 100 mg at bedtime, may repeat x 1. We will increase to 150 mg at bedtime, may repeat x 1 p.r.n. Maintain Zyprexa p.r.n. [place] level on 03/27/2017 was 0.5, reasonable for now, but we will continue to follow this carefully. Reviewed drug interactions. Risk/benefit ratio favors no further change. EULALIA NANCE MD DR: ELLIS/fernando JOB#: [id number] / [id number]
[2017-03-30 05:59] VITALS: BP 125/84
[2017-03-30] MEDS: LEVOTHYROXINE 25 MCG TABLET. PO SCH (06:18)
[2017-03-30 06:43] LABS: HEMATOCRIT 41.7 % (36.0-47.0); HEMOGLOBIN 14.1 g/dL (12.0-15.5); RED BLOOD COUNT 4.46 x10^6/uL (3.50-5.40); RED CELL DISTRIBUTION WIDTH 13.1 % (11.5-14.5); WHITE BLOOD COUNT 8.9 x10^3/uL (4.0-11.0)
[2017-03-30 07:00] LABS: ALBUMIN/GLOBULIN RATIO 1.3 (1.0-1.7); CALCIUM 9.6 mg/dL (8.5-10.1); GFR 55.6; TOTAL BILIRUBIN 0.6 mg/dL (0.2-1.0); TOTAL PROTEIN 7.1 g/dL (6.4-8.2)
[2017-03-30] MEDS: POTASSIUM CHLORIDE 10 MEQ TABLET.ER. PO SCH (07:40)
[2017-03-30] MEDS: PANTOPRAZOLE 40 MG TABLET. PO SCH ×2 (08:37→19:53)
[2017-03-30] MEDS: METOPROLOL TART IMMED RELEASE 25 MG TABLET PO SCH ×2 (08:37→19:57)
[2017-03-30] MEDS: MAGNESIUM OXIDE 400 MG TABLET PO SCH ×3 (08:37→19:54)
[2017-03-30] MEDS: DOCUSATE SODIUM 100 MG CAPSULE PO SCH ×2 (08:37→19:47)
[2017-03-30] MEDS: LITHIUM CARBONATE 300 MG TABLET PO SCH (08:37)
[2017-03-30 13:14] LABS: LI 0.6 mmol/L (0.6-1.2)
[2017-03-30] MEDS: RIVAROXABAN 10 MG TABLET. PO SCH ×2 (15:25→15:53)
[2017-03-30 15:48] VITALS: BP 101/68
--- NOTE | 2017-03-30 19:44 | PDOC ---
Exam Dixon Demential Exam: Dixon Note: Please also refer to the separate dictated note~for this date of service dictated separately.~Patient seen individually. Discussed the patient with Nursing staff reviewed the chart.~Reviewed interim history and current functioning. Reviewed vital signs,~Labs/ Radiology~and current medications noted below. Continue current treatment with the changes noted in the dictated addendum note Assessment: Vital Signs: Vital Signs Date Time Temp Pulse Resp B/P (MAP) Pulse Ox O2 Delivery O2 Flow Rate FiO2 03/30/17 15:48 98.1 80 18 101/68 (79) 95 03/26/17 16:32 Room Air I&O Intake and Output 03/31/17 07:00 Intake Total 840 ml Balance 840 ml Intake Oral 840 ml Labs: Laboratory Tests Test 03/30/17 06:33 White Blood Count 8.9 x10^3/uL (4.0-11.0) Red Blood Count 4.46 x10^6/uL (3.50-5.40) Hemoglobin 14.1 g/dL (12.0-15.5) Hematocrit 41.7 % (36.0-47.0) Mean Corpuscular Volume 94 fL (79-100) Mean Corpuscular Hemoglobin 32 pg (25-35) Mean Corpuscular Hemoglobin Concent 34 g/dL (31-37) Red Cell Distribution Width 13.1 % (11.5-14.5) Platelet Count 243 x10^3/uL (140-400) Sodium Level 149 mmol/L (136-145) H Potassium Level 4.0 mmol/L (3.5-5.1) Chloride Level 113 mmol/L (98-107) H Carbon Dioxide Level 28 mmol/L (21-32) Anion Gap 8 (6-14) Blood Urea Nitrogen 12 mg/dL (7-20) Creatinine 1.0 mg/dL (0.6-1.0) Estimated GFR (Cockcroft-Gault) 55.6 BUN/Creatinine Ratio 12 (6-20) Glucose Level 116 mg/dL (70-99) H Calcium Level 9.6 mg/dL (8.5-10.1) Total Bilirubin 0.6 mg/dL (0.2-1.0) Aspartate Amino Transferase (AST) 22 U/L (15-37) Alanine Aminotransferase (ALT) 43 U/L (14-59) Alkaline Phosphatase 115 U/L (46-116) Total Protein 7.1 g/dL (6.4-8.2) Albumin 4.0 g/dL (3.4-5.0) Albumin/Globulin Ratio 1.3 (1.0-1.7) [place] Level 0.6 mmol/L (0.6-1.2) [place] Last Dose Date 03/29/17 [place] Last Dose Time 2100 Current Medications: Meds: Current Medications Acetaminophen (Tylenol) 650 mg PRN Q6HRS PRN PO PAIN / TEMP; Start 03/25/17 at 16:45 Multi-Ingredient Ointment (Analgesic [place]) 1 zeus PRN QID PRN TP MUSCLE PAIN; Start 03/25/17 at 16:45 Al Hydroxide/Mg Hydroxide (Mylanta Plus Xs) 15 ml PRN AFTMEALHC PRN PO DYSPEPSIA; Start 03/25/17 at 16:45 Magnesium Hydroxide (Milk Of Magnesia) 2,400 mg PRN QHS PRN PO CONSTIPATION; Start 03/25/17 at 16:45 Acetaminophen (Tylenol) 500 mg PRN Q6HRS PO ; Start 03/25/17 at 16:45 Atorvastatin Calcium (Lipitor) 20 mg QHS PO Last administered on 03/29/17 20: 14; Start 03/25/17 at 21:00 Docusate Sodium (Colace) 100 mg BID PO Last administered on 03/30/17 08:37; Start 03/25/17 at 21:00 Levothyroxine Sodium (Synthroid) 25 mcg DAILY06 PO Last administered on 06:18; Start 03/26/17 at 06:00 Metoprolol Tartrate (Lopressor) 25 mg BID PO Last administered on 03/30/17 08: 37; Start 03/25/17 at 21:00 Montelukast Sodium (Singulair) 10 mg HS PO Last administered on 03/29/17 20:21 ; Start 03/25/17 at 21:00 Pantoprazole Sodium (Protonix) 40 mg BID PO Last administered on 03/30/17 08: 37; Start 03/25/17 at 21:00 Risperidone (RisperDAL) 2 mg QHS PO Last administered on 03/28/17 19:32; Start 03/25/17 at 21:00; Stop 03/29/17 at 18:25; Status DC Rivaroxaban (Xarelto) 15 mg DAILYWSUP PO Last administered on 03/25/17 20:36; Start 03/25/17 at 17:00; Stop 03/26/17 at 18:03; Status DC Trazodone HCl (Desyrel) 100 mg PRN QHS PRN PO INSOMNIA; Start 03/25/17 at 16:45 ; Stop 03/26/17 at 18:44; Status DC Diltiazem HCl (Cardizem 24hr Cd) 240 mg DAILY PO Last administered on 08:37; Start 03/26/17 at 09:00 [place] Carbonate 150 mg QHS PO Last administered on 03/26/17 19:44; Start at 21:00; Stop 03/27/17 at 19:13; Status DC [place] Carbonate 300 mg DAILY PO Last administered on 03/30/17 08:37; Start 03/25/17 at 17:00 Potassium Chloride (Klor-Con) 10 meq DAILYWBKFT PO Last administered on 07:40; Start 03/26/17 at 08:00 Olanzapine (ZyPREXA ZYDIS) 2.5 mg PRN Q2HR PRN PO PSYCHOSIS/AGITATION Last administered on 03/30/17 15:50; Start 03/26/17 at 14:30 Vitamin D (Vitamin D3) 50,000 unit WEEKLY PO ; Start 04/02/17 at 09:00 Magnesium Oxide (Magnesium Oxide) 400 mg TID PO Last administered on 03/30/17 13:45; Start 03/26/17 at 21:00 Rivaroxaban (Xarelto) 20 mg DAILYWSUP PO Last administered on 03/30/17 15:53; Start 03/27/17 at 08:00 Trazodone HCl (Desyrel) 100 mg QHS PO Last administered on 03/27/17 20:20; Start 03/26/17 at 21:00; Stop 03/28/17 at 18:59; Status DC Trazodone HCl (Desyrel) 100 mg PRN QHS PRN PO INSOMNIA; Start 03/26/17 at 21:00 ; Stop 03/28/17 at 18:59; Status DC [place] Carbonate 300 mg QHS PO Last administered on 03/29/17 20:14; Start at 21:00 Trazodone HCl (Desyrel) 150 mg PRN QHS PRN PO INSOMNIA Last administered on 00:03; Start 03/28/17 at 21:00 Trazodone HCl (Desyrel) 150 mg QHS PO Last administered on 03/29/17 20:22; Start 03/28/17 at 21:00 Risperidone (RisperDAL) 2 mg QHS PO Last administered on 03/29/17 20:22; Start 03/29/17 at 21:00 Risperidone (RisperDAL) 0.5 mg HS PO Last administered on 03/29/17 20:21; Start 03/29/17 at 21:00 Mirtazapine (Remeron) 7.5 mg QHS PO ; Start 03/30/17 at 21:00 Active Scripts Active Reported Trazodone Hcl 100 Mg Tablet 1 Tab PO PRN QHS Risperdal (Risperidone) 2 Mg Tablet 1 Tab PO QHS Xarelto (Rivaroxaban) 10 Mg Tablet 20 Mg PO DAILYWSUP Metoprolol Tartrate 25 Mg Tablet 1 Tab PO BID [place] Carbonate 150 Mg Capsule 1 Cap PO HS Acetaminophen 500 Mg Tablet 1 Tab PO PRN Q6HRS [place] Carbonate 300 Mg Tablet 300 Mg PO DAILY Pantoprazole Sodium 40 Mg Tablet.dr 40 Mg PO BID Doc-Q-Lace (Docusate Sodium) 100 Mg Capsule 100 Mg PO BID Potassium Chloride 10 Meq Tablet.er 10 Meq PO DAILYWBKFT Diltiazem 24Hr ER (Diltiazem HCl) 240 Mg Tab.er.24h 240 Mg PO DAILY Atorvastatin Calcium 20 Mg Tablet 20 Mg PO QHS NOT GIVEN IN THE HOSPITAL NEXT DOSE DUE: DATE: RESTART TODAY TIME: AT BEDTIME Levothyroxine Sodium 25 Mcg Tablet 1 Tab PO DAILY07 LAST DOSE GIVEN: DATE:TODAY TIME: BEFORE BREAKFAST NEXT DOSE DUE: DATE: TOMORROW TIME: BEFORE BREAKFAST Singulair Tablet (Montelukast Sodium) 10 Mg Tablet 10 Mg PO HS NOT GIVEN IN HOSPITAL NEXT DOSE DUE: DATE: RESTART TODAY TIME: AT BEDTIME Diagnosis: Problems: (1) Anxiety disorder (2) Anxiety disorder (3) Bipolar affective disorder (4) Bipolar affective disorder (5) Impulse control disorder (6) Delusional disorder (7) Bipolar affective, mixed, sev w/ psych (8) Bipolar affective, mixed, sev w/ psych (9) Dementia, vascular, with depression (10) Dementia, vascular, with delusions EULALIA NANCE MD Mar 30, 2017 19:44
[2017-03-30] MEDS: risperiDONE 0.5 MG TABLET. PO SCH (19:47)
[2017-03-30] MEDS: traZODone 100 MG TABLET. PO SCH (19:47)
[2017-03-30] MEDS: ATORVASTATIN CALCIUM 20 MG TABLET PO SCH (19:47)
[2017-03-30] MEDS: risperiDONE 2 MG TABLET. PO SCH (19:53)
[2017-03-30] MEDS: MONTELUKAST 10 MG TABLET. PO SCH (19:53)
[2017-03-30] MEDS: LITHIUM CARBONATE 150 MG CAPSULE. PO SCH (19:53)
[2017-03-30] MEDS: MIRTAZAPINE 7.5 MG TABLET. PO SCH (19:56)
--- NOTE | 2017-03-31 04:46 | PN ---
DATE: 03/29/2017 PSYCHIATRIC PROGRESS NOTE This is a late entry for 03/29/2017 covers the elements not covered in my initial note of 03/29/2017. SUBJECTIVE: I met with the patient in the evening of 03/29/2017. The patient slept 3-1/2 hours previous evening, has been paranoid, resistive to medications, anxious, restless in and out of her room. REVIEW OF SYSTEMS: Positive vague somatic symptoms as I met with her in her room. She is anxious, restless, constantly moving, eye contact is poor. No CV, , pulmonary, eye, ENT system symptoms on review specifically. MENTAL STATUS EXAM: Oriented to herself and situation. Speech, low in volume, coherent, abstraction fair, computation impaired, language function intact. Attention span short. She is paranoid, suspicious, as I met with her. No suicidal or homicidal ideation. LABORATORY DATA: Reviewed. IMPRESSION: Unchanged from initial note. PLAN: Increase Risperdal from 2 mg at bedtime to 2.5 mg at bedtime given her psychotic symptoms. [place] is 300 b.i.d., level is 0.5. We will monitor this. Trazodone will be continued, unchanged. Adjust further as clinically indicated. Reviewed drug interactions. Risk/benefit ratio favors no further change. EULALIA NANCE MD DR: ELLIS/fernando JOB#: [id number] / [id number]
[2017-03-31 05:42] VITALS: BP 100/75
[2017-03-31] MEDS: LEVOTHYROXINE 25 MCG TABLET. PO SCH (05:54)
[2017-03-31] MEDS: PANTOPRAZOLE 40 MG TABLET. PO SCH ×2 (08:12→19:23)
[2017-03-31] MEDS: LITHIUM CARBONATE 300 MG TABLET PO SCH (08:12)
[2017-03-31] MEDS: MAGNESIUM OXIDE 400 MG TABLET PO SCH ×3 (08:13→19:23)
[2017-03-31] MEDS: POTASSIUM CHLORIDE 10 MEQ TABLET.ER. PO SCH (08:13)
[2017-03-31] MEDS: DOCUSATE SODIUM 100 MG CAPSULE PO SCH ×2 (08:13→19:24)
[2017-03-31] MEDS: METOPROLOL TART IMMED RELEASE 25 MG TABLET PO SCH ×2 (08:13→19:26)
[2017-03-31 10:17] LABS: BASO % 0 % (0-3); EOS # 0.1 x10^3/uL (0.0-0.7); EOS % 1 % (0-3); HEMATOCRIT 39.9 % (36.0-47.0); HEMOGLOBIN 13.4 g/dL (12.0-15.5); LYMPH # 1.5 x10^3/uL (1.0-4.8); LYMPH % 16 % (24-48); MEAN CORPUSCULAR HEMOGLOBIN 32 pg (25-35); MEAN CORPUSCULAR HGB CONC 34 g/dL (31-37); MEAN CORPUSCULAR VOLUME 94 fL (79-100); MONO # 0.6 x10^3/uL (0.0-1.1); MONO % 6 % (0-9); NEUT # 7.3 x10^3uL (1.8-7.7); NEUT % 78 % (31-73); PLATELET COUNT 239 x10^3/uL (140-400); RED BLOOD COUNT 4.23 x10^6/uL (3.50-5.40); RED CELL DISTRIBUTION WIDTH 12.9 % (11.5-14.5); WHITE BLOOD COUNT 9.5 x10^3/uL (4.0-11.0)
[2017-03-31 10:27] LABS: ALBUMIN 3.6 g/dL (3.4-5.0); ALBUMIN/GLOBULIN RATIO 1.2 (1.0-1.7); CALCIUM 9.2 mg/dL (8.5-10.1); CREATININE 1.2 mg/dL (0.6-1.0); GFR 45.1; POTASSIUM 3.8 mmol/L (3.5-5.1); TOTAL BILIRUBIN 0.3 mg/dL (0.2-1.0); TOTAL PROTEIN 6.6 g/dL (6.4-8.2)
[2017-03-31] MEDS: ACETAMINOPHEN 325 MG TABLET PO PRN (11:30)
[2017-03-31 13:58] LABS: LI 0.6 mmol/L (0.6-1.2)
[2017-03-31 16:47] VITALS: BP 110/66
[2017-03-31] MEDS: RIVAROXABAN 10 MG TABLET. PO SCH (17:25)
[2017-03-31] MEDS: MIRTAZAPINE 7.5 MG TABLET. PO SCH (19:23)
[2017-03-31] MEDS: ATORVASTATIN CALCIUM 20 MG TABLET PO SCH (19:23)
[2017-03-31] MEDS: risperiDONE 2 MG TABLET. PO SCH (19:23)
[2017-03-31] MEDS: LITHIUM CARBONATE 150 MG CAPSULE. PO SCH (19:24)
[2017-03-31] MEDS: traZODone 100 MG TABLET. PO SCH (19:24)
[2017-03-31] MEDS: MONTELUKAST 10 MG TABLET. PO SCH (19:24)
[2017-03-31] MEDS: QUEtiapine 25 MG TABLET. PO SCH (19:37)
--- NOTE | 2017-03-31 21:10 | PDOC ---
Exam Dixon Demential Exam: Dixon Note: Please also refer to the separate dictated note~for this date of service dictated separately.~Patient seen individually. Discussed the patient with Nursing staff reviewed the chart.~Reviewed interim history and current functioning. Reviewed vital signs,~Labs/ Radiology~and current medications noted below. Continue current treatment with the changes noted in the dictated addendum note Assessment: Vital Signs: Vital Signs Date Time Temp Pulse Resp B/P (MAP) Pulse Ox O2 Delivery O2 Flow Rate FiO2 03/31/17 19:26 91 110/66 03/31/17 16:47 96.8 18 97 03/31/17 05:42 Room Air I&O Intake and Output 04/01/17 07:00 Intake Total 720 ml Balance 720 ml Intake Oral 720 ml # Bowel Movements 1 Labs: Laboratory Tests Test 03/31/17 09:45 White Blood Count 9.5 x10^3/uL (4.0-11.0) Red Blood Count 4.23 x10^6/uL (3.50-5.40) Hemoglobin 13.4 g/dL (12.0-15.5) Hematocrit 39.9 % (36.0-47.0) Mean Corpuscular Volume 94 fL (79-100) Mean Corpuscular Hemoglobin 32 pg (25-35) Mean Corpuscular Hemoglobin Concent 34 g/dL (31-37) Red Cell Distribution Width 12.9 % (11.5-14.5) Platelet Count 239 x10^3/uL (140-400) Neutrophils (%) (Auto) 78 % (31-73) H Lymphocytes (%) (Auto) 16 % (24-48) L Monocytes (%) (Auto) 6 % (0-9) Eosinophils (%) (Auto) 1 % (0-3) Basophils (%) (Auto) 0 % (0-3) Neutrophils # (Auto) 7.3 x10^3uL (1.8-7.7) Lymphocytes # (Auto) 1.5 x10^3/uL (1.0-4.8) Monocytes # (Auto) 0.6 x10^3/uL (0.0-1.1) Eosinophils # (Auto) 0.1 x10^3/uL (0.0-0.7) Basophils # (Auto) 0.0 x10^3/uL (0.0-0.2) Sodium Level 144 mmol/L (136-145) Potassium Level 3.8 mmol/L (3.5-5.1) Chloride Level 110 mmol/L (98-107) H Carbon Dioxide Level 27 mmol/L (21-32) Anion Gap 7 (6-14) Blood Urea Nitrogen 12 mg/dL (7-20) Creatinine 1.2 mg/dL (0.6-1.0) H Estimated GFR (Cockcroft-Gault) 45.1 BUN/Creatinine Ratio 10 (6-20) Glucose Level 136 mg/dL (70-99) H Calcium Level 9.2 mg/dL (8.5-10.1) Total Bilirubin 0.3 mg/dL (0.2-1.0) Aspartate Amino Transferase (AST) 22 U/L (15-37) Alanine Aminotransferase (ALT) 39 U/L (14-59) Alkaline Phosphatase 94 U/L (46-116) Total Protein 6.6 g/dL (6.4-8.2) Albumin 3.6 g/dL (3.4-5.0) Albumin/Globulin Ratio 1.2 (1.0-1.7) [place] Level 0.6 mmol/L (0.6-1.2) [place] Last Dose Date 03/30/17 [place] Last Dose Time 2100 Current Medications: Meds: Current Medications Acetaminophen (Tylenol) 650 mg PRN Q6HRS PRN PO PAIN / TEMP Last administered on 03/31/17 11:30; Start 03/25/17 at 16:45 Multi-Ingredient Ointment (Analgesic [place]) 1 zeus PRN QID PRN TP MUSCLE PAIN; Start 03/25/17 at 16:45 Al Hydroxide/Mg Hydroxide (Mylanta Plus Xs) 15 ml PRN AFTMEALHC PRN PO DYSPEPSIA; Start 03/25/17 at 16:45 Magnesium Hydroxide (Milk Of Magnesia) 2,400 mg PRN QHS PRN PO CONSTIPATION; Start 03/25/17 at 16:45 Acetaminophen (Tylenol) 500 mg PRN Q6HRS PO ; Start 03/25/17 at 16:45 Atorvastatin Calcium (Lipitor) 20 mg QHS PO Last administered on 03/31/17 19: 23; Start 03/25/17 at 21:00 Docusate Sodium (Colace) 100 mg BID PO Last administered on 03/31/17 19:24; Start 03/25/17 at 21:00 Levothyroxine Sodium (Synthroid) 25 mcg DAILY06 PO Last administered on 05:54; Start 03/26/17 at 06:00 Metoprolol Tartrate (Lopressor) 25 mg BID PO Last administered on 03/31/17 19: 26; Start 03/25/17 at 21:00 Montelukast Sodium (Singulair) 10 mg HS PO Last administered on 03/31/17 19:24 ; Start 03/25/17 at 21:00 Pantoprazole Sodium (Protonix) 40 mg BID PO Last administered on 03/31/17 19: 23; Start 03/25/17 at 21:00 Risperidone (RisperDAL) 2 mg QHS PO Last administered on 03/28/17 19:32; Start 03/25/17 at 21:00; Stop 03/29/17 at 18:25; Status DC Rivaroxaban (Xarelto) 15 mg DAILYWSUP PO Last administered on 03/25/17 20:36; Start 03/25/17 at 17:00; Stop 03/26/17 at 18:03; Status DC Trazodone HCl (Desyrel) 100 mg PRN QHS PRN PO INSOMNIA; Start 03/25/17 at 16:45 ; Stop 03/26/17 at 18:44; Status DC Diltiazem HCl (Cardizem 24hr Cd) 240 mg DAILY PO Last administered on 08:13; Start 03/26/17 at 09:00 [place] Carbonate 150 mg QHS PO Last administered on 03/26/17 19:44; Start at 21:00; Stop 03/27/17 at 19:13; Status DC [place] Carbonate 300 mg DAILY PO Last administered on 03/31/17 08:12; Start 03/25/17 at 17:00 Potassium Chloride (Klor-Con) 10 meq DAILYWBKFT PO Last administered on 08:13; Start 03/26/17 at 08:00 Olanzapine (ZyPREXA ZYDIS) 2.5 mg PRN Q2HR PRN PO PSYCHOSIS/AGITATION Last administered on 03/31/17 11:11; Start 03/26/17 at 14:30 Vitamin D (Vitamin D3) 50,000 unit WEEKLY PO ; Start 04/02/17 at 09:00 Magnesium Oxide (Magnesium Oxide) 400 mg TID PO Last administered on 03/31/17 19:23; Start 03/26/17 at 21:00 Rivaroxaban (Xarelto) 20 mg DAILYWSUP PO Last administered on 03/31/17 17:25; Start 03/27/17 at 08:00 Trazodone HCl (Desyrel) 100 mg QHS PO Last administered on 03/27/17 20:20; Start 03/26/17 at 21:00; Stop 03/28/17 at 18:59; Status DC Trazodone HCl (Desyrel) 100 mg PRN QHS PRN PO INSOMNIA; Start 03/26/17 at 21:00 ; Stop 03/28/17 at 18:59; Status DC [place] Carbonate 300 mg QHS PO Last administered on 03/31/17 19:24; Start at 21:00 Trazodone HCl (Desyrel) 150 mg PRN QHS PRN PO INSOMNIA Last administered on 00:03; Start 03/28/17 at 21:00 Trazodone HCl (Desyrel) 150 mg QHS PO Last administered on 03/31/17 19:24; Start 03/28/17 at 21:00 Risperidone (RisperDAL) 2 mg QHS PO Last administered on 03/31/17 19:23; Start 03/29/17 at 21:00 Risperidone (RisperDAL) 0.5 mg HS PO Last administered on 03/30/17 19:47; Start 03/29/17 at 21:00; Stop 03/31/17 at 18:47; Status DC Mirtazapine (Remeron) 7.5 mg QHS PO Last administered on 03/31/17 19:23; Start 03/30/17 at 21:00 Quetiapine Fumarate (SEROquel) 50 mg QHS PO Last administered on 03/31/17 19: 37; Start 03/31/17 at 21:00; Stop 9/22/17 at 09:00 Quetiapine Fumarate (SEROquel) 100 mg HS PO ; Start 04/02/17 at 21:00 Active Scripts Active Reported Trazodone Hcl 100 Mg Tablet 1 Tab PO PRN QHS Risperdal (Risperidone) 2 Mg Tablet 1 Tab PO QHS Xarelto (Rivaroxaban) 10 Mg Tablet 20 Mg PO DAILYWSUP Metoprolol Tartrate 25 Mg Tablet 1 Tab PO BID [place] Carbonate 150 Mg Capsule 1 Cap PO HS Acetaminophen 500 Mg Tablet 1 Tab PO PRN Q6HRS [place] Carbonate 300 Mg Tablet 300 Mg PO DAILY Pantoprazole Sodium 40 Mg Tablet.dr 40 Mg PO BID Doc-Q-Lace (Docusate Sodium) 100 Mg Capsule 100 Mg PO BID Potassium Chloride 10 Meq Tablet.er 10 Meq PO DAILYWBKFT Diltiazem 24Hr ER (Diltiazem HCl) 240 Mg Tab.er.24h 240 Mg PO DAILY Atorvastatin Calcium 20 Mg Tablet 20 Mg PO QHS NOT GIVEN IN THE HOSPITAL NEXT DOSE DUE: DATE: RESTART TODAY TIME: AT BEDTIME Levothyroxine Sodium 25 Mcg Tablet 1 Tab PO DAILY07 LAST DOSE GIVEN: DATE:TODAY TIME: BEFORE BREAKFAST NEXT DOSE DUE: DATE: TOMORROW TIME: BEFORE BREAKFAST Singulair Tablet (Montelukast Sodium) 10 Mg Tablet 10 Mg PO HS NOT GIVEN IN HOSPITAL NEXT DOSE DUE: DATE: RESTART TODAY TIME: AT BEDTIME Diagnosis: Problems: (1) Anxiety disorder (2) Anxiety disorder (3) Bipolar affective disorder (4) Bipolar affective disorder (5) Impulse control disorder (6) Delusional disorder (7) Bipolar affective, mixed, sev w/ psych (8) Bipolar affective, mixed, sev w/ psych (9) Dementia, vascular, with depression (10) Dementia, vascular, with delusions EULALIA NANCE MD Mar 31, 2017 21:10
[2017-04-01] MEDS: traZODone 100 MG TABLET. PO PRN (00:08)
--- NOTE | 2017-04-01 05:16 | PN ---
DATE: 03/30/2017 This late entry, 03/30/2017, covers elements not covered in my initial note of 03/30/2017. Met with the patient evening of 03/30/2017. The patient slept 4-1/2 hours previous evening and we will add Remeron 7.5 mg p.o. at bedtime to help with this. She has been paranoid, making statement "they are part of this as well." She has been irritable, "get out of here." "That's not my cup, you stole it" per nursing report. [place] level is to be checked morning of 03/31/2017 along with CBC and CMP. REVIEW OF SYSTEMS: No CV, , pulmonary, eye, ENT system symptoms on review. MENTAL STATUS EXAM: I sat with the patient in her room. She is anxious, restless, constantly up and down from the chair. Poor eye contact. Insight, judgment, recent memory is impaired. Language function intact. Attention span short. Mood and affect somewhat anxious, labile. LABORATORY DATA: Reviewed. IMPRESSION: Unchanged from initial note. PLAN: Repeat lithium level morning of 03/31/2017, add Remeron as noted. Continue rest of the psychotropics. Risperdal 2.5 mg a day. Reviewed drug interactions. Risk-benefit ratio favors no further change. MAN Chantell NANCE MD DR: ELLIS/fernando JOB#: [id number] / [id number]
[2017-04-01] MEDS: LEVOTHYROXINE 25 MCG TABLET. PO SCH (05:26)
[2017-04-01 05:54] VITALS: BP 118/85
[2017-04-01] MEDS: POTASSIUM CHLORIDE 10 MEQ TABLET.ER. PO SCH (09:07)
[2017-04-01] MEDS: MAGNESIUM OXIDE 400 MG TABLET PO SCH ×3 (09:07→19:47)
[2017-04-01] MEDS: LITHIUM CARBONATE 300 MG TABLET PO SCH (09:08)
[2017-04-01] MEDS: PANTOPRAZOLE 40 MG TABLET. PO SCH ×2 (09:08→19:47)
[2017-04-01] MEDS: DOCUSATE SODIUM 100 MG CAPSULE PO SCH ×2 (09:08→19:48)
[2017-04-01] MEDS: METOPROLOL TART IMMED RELEASE 25 MG TABLET PO SCH ×2 (09:08→19:53)
[2017-04-01] MEDS: clonazePAM 0.5 MG TABLET PO SCH (14:12)
[2017-04-01 16:25] VITALS: BP 100/62
[2017-04-01] MEDS: RIVAROXABAN 10 MG TABLET. PO SCH (16:27)
[2017-04-01] MEDS: traZODone 100 MG TABLET. PO SCH (19:46)
[2017-04-01] MEDS: MONTELUKAST 10 MG TABLET. PO SCH (19:47)
[2017-04-01] MEDS: risperiDONE 2 MG TABLET. PO SCH (19:47)
[2017-04-01] MEDS: QUEtiapine 25 MG TABLET. PO SCH (19:47)
[2017-04-01] MEDS: ATORVASTATIN CALCIUM 20 MG TABLET PO SCH (19:48)
[2017-04-01] MEDS: LITHIUM CARBONATE 150 MG CAPSULE. PO SCH (19:48)
[2017-04-01] MEDS: MIRTAZAPINE 7.5 MG TABLET. PO SCH (19:48)
[2017-04-01 19:53] VITALS: BP 118/75
[2017-04-01] MEDS: MAG HYDROX/AL HYDROX/SIMETH 30 ML ORAL.SUSP PO PRN (20:05)
--- NOTE | 2017-04-01 21:07 | PDOC ---
Exam Dixon Demential Exam: Dixon Note: Please also refer to the separate dictated note~for this date of service dictated separately.~Patient seen individually. Discussed the patient with Nursing staff reviewed the chart.~Reviewed interim history and current functioning. Reviewed vital signs,~Labs/ Radiology~and current medications noted below. Continue current treatment with the changes noted in the dictated addendum note Assessment: Vital Signs: Vital Signs Date Time Temp Pulse Resp B/P (MAP) Pulse Ox O2 Delivery O2 Flow Rate FiO2 04/01/17 19:53 104 26 118/75 (89) 95 04/01/17 16:25 98.1 04/01/17 05:54 Room Air I&O Intake and Output 04/02/17 07:00 Intake Total 600 ml Balance 600 ml Intake Oral 600 ml Current Medications: Meds: Current Medications Acetaminophen (Tylenol) 650 mg PRN Q6HRS PRN PO PAIN / TEMP Last administered on 03/31/17 11:30; Start 03/25/17 at 16:45 Multi-Ingredient Ointment (Analgesic [place]) 1 zeus PRN QID PRN TP MUSCLE PAIN; Start 03/25/17 at 16:45 Al Hydroxide/Mg Hydroxide (Mylanta Plus Xs) 15 ml PRN AFTMEALHC PRN PO DYSPEPSIA Last administered on 04/01/17 20:05; Start 03/25/17 at 16:45 Magnesium Hydroxide (Milk Of Magnesia) 2,400 mg PRN QHS PRN PO CONSTIPATION; Start 03/25/17 at 16:45 Acetaminophen (Tylenol) 500 mg PRN Q6HRS PO ; Start 03/25/17 at 16:45 Atorvastatin Calcium (Lipitor) 20 mg QHS PO Last administered on 04/01/17 19: 48; Start 03/25/17 at 21:00 Docusate Sodium (Colace) 100 mg BID PO Last administered on 04/01/17 19:48; Start 03/25/17 at 21:00 Levothyroxine Sodium (Synthroid) 25 mcg DAILY06 PO Last administered on 05:26; Start 03/26/17 at 06:00 Metoprolol Tartrate (Lopressor) 25 mg BID PO Last administered on 04/01/17 19: 53; Start 03/25/17 at 21:00 Montelukast Sodium (Singulair) 10 mg HS PO Last administered on 04/01/17 19:47 ; Start 03/25/17 at 21:00 Pantoprazole Sodium (Protonix) 40 mg BID PO Last administered on 04/01/17 19: 47; Start 03/25/17 at 21:00 Risperidone (RisperDAL) 2 mg QHS PO Last administered on 03/28/17 19:32; Start 03/25/17 at 21:00; Stop 03/29/17 at 18:25; Status DC Rivaroxaban (Xarelto) 15 mg DAILYWSUP PO Last administered on 03/25/17 20:36; Start 03/25/17 at 17:00; Stop 03/26/17 at 18:03; Status DC Trazodone HCl (Desyrel) 100 mg PRN QHS PRN PO INSOMNIA; Start 03/25/17 at 16:45 ; Stop 03/26/17 at 18:44; Status DC Diltiazem HCl (Cardizem 24hr Cd) 240 mg DAILY PO Last administered on 09:08; Start 03/26/17 at 09:00 [place] Carbonate 150 mg QHS PO Last administered on 03/26/17 19:44; Start at 21:00; Stop 03/27/17 at 19:13; Status DC [place] Carbonate 300 mg DAILY PO Last administered on 04/01/17 09:08; Start 03/25/17 at 17:00 Potassium Chloride (Klor-Con) 10 meq DAILYWBKFT PO Last administered on 09:07; Start 03/26/17 at 08:00 Olanzapine (ZyPREXA ZYDIS) 2.5 mg PRN Q2HR PRN PO PSYCHOSIS/AGITATION Last administered on 03/31/17 11:11; Start 03/26/17 at 14:30 Vitamin D (Vitamin D3) 50,000 unit WEEKLY PO ; Start 04/02/17 at 09:00 Magnesium Oxide (Magnesium Oxide) 400 mg TID PO Last administered on 04/01/17 19:47; Start 03/26/17 at 21:00 Rivaroxaban (Xarelto) 20 mg DAILYWSUP PO Last administered on 04/01/17 16:27; Start 03/27/17 at 08:00 Trazodone HCl (Desyrel) 100 mg QHS PO Last administered on 03/27/17 20:20; Start 03/26/17 at 21:00; Stop 03/28/17 at 18:59; Status DC Trazodone HCl (Desyrel) 100 mg PRN QHS PRN PO INSOMNIA; Start 03/26/17 at 21:00 ; Stop 03/28/17 at 18:59; Status DC [place] Carbonate 300 mg QHS PO Last administered on 04/01/17 19:48; Start at 21:00 Trazodone HCl (Desyrel) 150 mg PRN QHS PRN PO INSOMNIA Last administered on 00:08; Start 03/28/17 at 21:00 Trazodone HCl (Desyrel) 150 mg QHS PO Last administered on 04/01/17 19:46; Start 03/28/17 at 21:00 Risperidone (RisperDAL) 2 mg QHS PO Last administered on 04/01/17 19:47; Start 03/29/17 at 21:00 Risperidone (RisperDAL) 0.5 mg HS PO Last administered on 03/30/17 19:47; Start 03/29/17 at 21:00; Stop 03/31/17 at 18:47; Status DC Mirtazapine (Remeron) 7.5 mg QHS PO Last administered on 04/01/17 19:48; Start 03/30/17 at 21:00 Quetiapine Fumarate (SEROquel) 50 mg QHS PO Last administered on 04/01/17 19: 47; Start 03/31/17 at 21:00; Stop 04/02/17 at 09:00 Quetiapine Fumarate (SEROquel) 100 mg HS PO ; Start 04/02/17 at 21:00 Clonazepam (KlonoPIN) 0.25 mg BID92 PO Last administered on 04/01/17 14:12; Start 04/01/17 at 14:00 Fluvoxamine Maleate (Luvox) 25 mg HS PO Last administered on 04/01/17 19:48; Start 04/01/17 at 21:00 Active Scripts Active Reported Trazodone Hcl 100 Mg Tablet 1 Tab PO PRN QHS Risperdal (Risperidone) 2 Mg Tablet 1 Tab PO QHS Xarelto (Rivaroxaban) 10 Mg Tablet 20 Mg PO DAILYWSUP Metoprolol Tartrate 25 Mg Tablet 1 Tab PO BID [place] Carbonate 150 Mg Capsule 1 Cap PO HS Acetaminophen 500 Mg Tablet 1 Tab PO PRN Q6HRS [place] Carbonate 300 Mg Tablet 300 Mg PO DAILY Pantoprazole Sodium 40 Mg Tablet.dr 40 Mg PO BID Doc-Q-Lace (Docusate Sodium) 100 Mg Capsule 100 Mg PO BID Potassium Chloride 10 Meq Tablet.er 10 Meq PO DAILYWBKFT Diltiazem 24Hr ER (Diltiazem HCl) 240 Mg Tab.er.24h 240 Mg PO DAILY Atorvastatin Calcium 20 Mg Tablet 20 Mg PO QHS NOT GIVEN IN THE HOSPITAL NEXT DOSE DUE: DATE: RESTART TODAY TIME: AT BEDTIME Levothyroxine Sodium 25 Mcg Tablet 1 Tab PO DAILY07 LAST DOSE GIVEN: DATE:TODAY TIME: BEFORE BREAKFAST NEXT DOSE DUE: DATE: TOMORROW TIME: BEFORE BREAKFAST Singulair Tablet (Montelukast Sodium) 10 Mg Tablet 10 Mg PO HS NOT GIVEN IN HOSPITAL NEXT DOSE DUE: DATE: RESTART TODAY TIME: AT BEDTIME Diagnosis: Problems: (1) Anxiety disorder (2) Anxiety disorder (3) Bipolar affective disorder (4) Bipolar affective disorder (5) Impulse control disorder (6) Delusional disorder (7) Bipolar affective, mixed, sev w/ psych (8) Bipolar affective, mixed, sev w/ psych (9) Dementia, vascular, with depression (10) Dementia, vascular, with delusions EULALIA NANCE MD Apr 01, 2017 21:07
[2017-04-02] MEDS: traZODone 100 MG TABLET. PO SCH ×2 (00:49→19:37)
--- NOTE | 2017-04-02 01:15 | PN ---
DATE: 03/31/2017 This late entry for 03/31/2017 covers elements not covered in my initial note of 03/31/2017. SUBJECTIVE: I met with the patient in her room the evening of 03/31/2017. Per note, the patient has been quite paranoid "they are in on it." She is quite restless, anxious, almost ecstatic, up and down from her chair, walking to the bathroom and back 15 to 20 times during my visit with her. REVIEW OF SYSTEMS: Positive for anxiety, paranoia. No CV, , pulmonary, eye system symptoms on review. Reliability varies. Many of her responses were inferred given some confusion. MENTAL STATUS EXAM: Oriented to herself and situation. Speech coherent, often responses monosyllabic. Abstraction fair, computation impaired, language function intact. Attention span short. No active suicidal or homicidal ideation. She is paranoid. LABORATORY DATA: Reviewed. IMPRESSION: Unchanged from initial note bipolar 1 disorder, mixed with psychotic features, obsessive-compulsive disorder, anxiety disorder, unspecified. PLAN: [place] level is 0.6. Maintain lithium carbonate 300 mg b.i.d. She is ecstatic, still very anxious, obsessive. Change the Risperdal to Seroquel 50 mg a day at bedtime for 2 days then 100 mg a day bedtime thereafter. Continue trazodone, Zyprexa p.r.n., consider an SSRI or Luvox for OCD symptoms. Reviewed drug interactions. Risk/benefit ratio favors no further change. EULALIA NANCE MD DR: ELLIS/fernando JOB#: [id number] / [id number]
[2017-04-02] MEDS: MAG HYDROX/AL HYDROX/SIMETH 30 ML ORAL.SUSP PO PRN (03:58)
[2017-04-02] MEDS: LEVOTHYROXINE 25 MCG TABLET. PO SCH (05:27)
[2017-04-02 05:59] VITALS: BP 152/73
[2017-04-02] MEDS: METOPROLOL TART IMMED RELEASE 25 MG TABLET PO SCH ×2 (08:00→19:38)
[2017-04-02] MEDS: POTASSIUM CHLORIDE 10 MEQ TABLET.ER. PO SCH (08:01)
[2017-04-02] MEDS: MAGNESIUM OXIDE 400 MG TABLET PO SCH ×3 (08:02→19:38)
[2017-04-02] MEDS: LITHIUM CARBONATE 300 MG TABLET PO SCH (08:02)
[2017-04-02] MEDS: DOCUSATE SODIUM 100 MG CAPSULE PO SCH ×2 (08:02→19:37)
[2017-04-02] MEDS: PANTOPRAZOLE 40 MG TABLET. PO SCH ×2 (08:02→19:37)
[2017-04-02] MEDS: clonazePAM 0.5 MG TABLET PO SCH ×2 (08:03→13:34)
[2017-04-02] MEDS: CHOLECALCIFEROL (VITAMIN D3) 50,000 UNIT CAPSULE PO SCH (08:04)
[2017-04-02 16:11] VITALS: BP 124/63
[2017-04-02] MEDS: RIVAROXABAN 10 MG TABLET. PO SCH (17:52)
[2017-04-02] MEDS: MIRTAZAPINE 7.5 MG TABLET. PO SCH (19:36)
[2017-04-02] MEDS: ATORVASTATIN CALCIUM 20 MG TABLET PO SCH (19:37)
[2017-04-02] MEDS: LITHIUM CARBONATE 150 MG CAPSULE. PO SCH (19:37)
[2017-04-02] MEDS: risperiDONE 2 MG TABLET. PO SCH (19:38)
[2017-04-02] MEDS: MONTELUKAST 10 MG TABLET. PO SCH (19:38)
[2017-04-02] MEDS: cycloSPORINE 0.05% OPTH 1 DROP DROPERETTE OU SCH (19:55)
[2017-04-02] MEDS: QUEtiapine 100 MG TABLET. PO SCH (19:55)
--- NOTE | 2017-04-02 20:59 | PDOC ---
Exam Dixon Demential Exam: Dixon Note: Please also refer to the separate dictated note~for this date of service dictated separately.~Patient seen individually. Discussed the patient with Nursing staff reviewed the chart.~Reviewed interim history and current functioning. Reviewed vital signs,~Labs/ Radiology~and current medications noted below. Continue current treatment with the changes noted in the dictated addendum note Assessment: Vital Signs: Vital Signs Date Time Temp Pulse Resp B/P (MAP) Pulse Ox O2 Delivery O2 Flow Rate FiO2 04/02/17 19:38 71 124/63 04/02/17 16:11 97.2 18 92 04/01/17 05:54 Room Air I&O Intake and Output 04/03/17 07:00 Intake Total 1320 ml Balance 1320 ml Intake Oral 1320 ml Current Medications: Meds: Current Medications Acetaminophen (Tylenol) 650 mg PRN Q6HRS PRN PO PAIN / TEMP Last administered on 03/31/17 11:30; Start 03/25/17 at 16:45 Multi-Ingredient Ointment (Analgesic [place]) 1 zeus PRN QID PRN TP MUSCLE PAIN; Start 03/25/17 at 16:45 Al Hydroxide/Mg Hydroxide (Mylanta Plus Xs) 15 ml PRN AFTMEALHC PRN PO DYSPEPSIA Last administered on 04/02/17 03:58; Start 03/25/17 at 16:45 Magnesium Hydroxide (Milk Of Magnesia) 2,400 mg PRN QHS PRN PO CONSTIPATION; Start 03/25/17 at 16:45 Acetaminophen (Tylenol) 500 mg PRN Q6HRS PO ; Start 03/25/17 at 16:45 Atorvastatin Calcium (Lipitor) 20 mg QHS PO Last administered on 04/02/17 19: 37; Start 03/25/17 at 21:00 Docusate Sodium (Colace) 100 mg BID PO Last administered on 04/02/17 19:37; Start 03/25/17 at 21:00 Levothyroxine Sodium (Synthroid) 25 mcg DAILY06 PO Last administered on 05:27; Start 03/26/17 at 06:00 Metoprolol Tartrate (Lopressor) 25 mg BID PO Last administered on 04/02/17 19: 38; Start 03/25/17 at 21:00 Montelukast Sodium (Singulair) 10 mg HS PO Last administered on 04/02/17 19:38 ; Start 03/25/17 at 21:00 Pantoprazole Sodium (Protonix) 40 mg BID PO Last administered on 04/02/17 19: 37; Start 03/25/17 at 21:00 Risperidone (RisperDAL) 2 mg QHS PO Last administered on 03/28/17 19:32; Start 03/25/17 at 21:00; Stop 03/29/17 at 18:25; Status DC Rivaroxaban (Xarelto) 15 mg DAILYWSUP PO Last administered on 03/25/17 20:36; Start 03/25/17 at 17:00; Stop 03/26/17 at 18:03; Status DC Trazodone HCl (Desyrel) 100 mg PRN QHS PRN PO INSOMNIA; Start 03/25/17 at 16:45 ; Stop 03/26/17 at 18:44; Status DC Diltiazem HCl (Cardizem 24hr Cd) 240 mg DAILY PO Last administered on 08:01; Start 03/26/17 at 09:00 [place] Carbonate 150 mg QHS PO Last administered on 03/26/17 19:44; Start at 21:00; Stop 03/27/17 at 19:13; Status DC [place] Carbonate 300 mg DAILY PO Last administered on 04/02/17 08:02; Start 03/25/17 at 17:00 Potassium Chloride (Klor-Con) 10 meq DAILYWBKFT PO Last administered on 08:01; Start 03/26/17 at 08:00 Olanzapine (ZyPREXA ZYDIS) 2.5 mg PRN Q2HR PRN PO PSYCHOSIS/AGITATION Last administered on 03/31/17 11:11; Start 03/26/17 at 14:30 Vitamin D (Vitamin D3) 50,000 unit WEEKLY PO Last administered on 04/02/17 08: 04; Start 04/02/17 at 09:00 Magnesium Oxide (Magnesium Oxide) 400 mg TID PO Last administered on 04/02/17 19:38; Start 03/26/17 at 21:00 Rivaroxaban (Xarelto) 20 mg DAILYWSUP PO Last administered on 04/02/17 17:52; Start 03/27/17 at 08:00 Trazodone HCl (Desyrel) 100 mg QHS PO Last administered on 03/27/17 20:20; Start 03/26/17 at 21:00; Stop 03/28/17 at 18:59; Status DC Trazodone HCl (Desyrel) 100 mg PRN QHS PRN PO INSOMNIA; Start 03/26/17 at 21:00 ; Stop 03/28/17 at 18:59; Status DC [place] Carbonate 300 mg QHS PO Last administered on 04/02/17 19:37; Start at 21:00 Trazodone HCl (Desyrel) 150 mg PRN QHS PRN PO INSOMNIA Last administered on 00:08; Start 03/28/17 at 21:00 Trazodone HCl (Desyrel) 150 mg QHS PO Last administered on 04/02/17 19:37; Start 03/28/17 at 21:00 Risperidone (RisperDAL) 2 mg QHS PO Last administered on 04/02/17 19:38; Start 03/29/17 at 21:00 Risperidone (RisperDAL) 0.5 mg HS PO Last administered on 03/30/17 19:47; Start 03/29/17 at 21:00; Stop 03/31/17 at 18:47; Status DC Mirtazapine (Remeron) 7.5 mg QHS PO Last administered on 04/02/17 19:36; Start 03/30/17 at 21:00 Quetiapine Fumarate (SEROquel) 50 mg QHS PO Last administered on 04/01/17 19: 47; Start 03/31/17 at 21:00; Stop 04/02/17 at 09:00; Status DC Quetiapine Fumarate (SEROquel) 100 mg HS PO Last administered on 04/02/17 19: 55; Start 04/02/17 at 21:00 Clonazepam (KlonoPIN) 0.25 mg BID92 PO Last administered on 04/02/17 13:34; Start 04/01/17 at 14:00 Fluvoxamine Maleate (Luvox) 25 mg HS PO Last administered on 04/02/17 19:37; Start 04/01/17 at 21:00 Cyclosporine (Restasis) 1 drop BID OU Last administered on 04/02/17 19:55; Start 04/02/17 at 21:00 Active Scripts Active Reported Trazodone Hcl 100 Mg Tablet 1 Tab PO PRN QHS Risperdal (Risperidone) 2 Mg Tablet 1 Tab PO QHS Xarelto (Rivaroxaban) 10 Mg Tablet 20 Mg PO DAILYWSUP Metoprolol Tartrate 25 Mg Tablet 1 Tab PO BID [place] Carbonate 150 Mg Capsule 1 Cap PO HS Acetaminophen 500 Mg Tablet 1 Tab PO PRN Q6HRS [place] Carbonate 300 Mg Tablet 300 Mg PO DAILY Pantoprazole Sodium 40 Mg Tablet.dr 40 Mg PO BID Doc-Q-Lace (Docusate Sodium) 100 Mg Capsule 100 Mg PO BID Potassium Chloride 10 Meq Tablet.er 10 Meq PO DAILYWBKFT Diltiazem 24Hr ER (Diltiazem HCl) 240 Mg Tab.er.24h 240 Mg PO DAILY Atorvastatin Calcium 20 Mg Tablet 20 Mg PO QHS NOT GIVEN IN THE HOSPITAL NEXT DOSE DUE: DATE: RESTART TODAY TIME: AT BEDTIME Levothyroxine Sodium 25 Mcg Tablet 1 Tab PO DAILY07 LAST DOSE GIVEN: DATE:TODAY TIME: BEFORE BREAKFAST NEXT DOSE DUE: DATE: TOMORROW TIME: BEFORE BREAKFAST Singulair Tablet (Montelukast Sodium) 10 Mg Tablet 10 Mg PO HS NOT GIVEN IN HOSPITAL NEXT DOSE DUE: DATE: RESTART TODAY TIME: AT BEDTIME Diagnosis: Problems: (1) Anxiety disorder (2) Anxiety disorder (3) Bipolar affective disorder (4) Bipolar affective disorder (5) Impulse control disorder (6) Delusional disorder (7) Bipolar affective, mixed, sev w/ psych (8) Bipolar affective, mixed, sev w/ psych (9) Dementia, vascular, with depression (10) Dementia, vascular, with delusions EULALIA NANCE MD Apr 02, 2017 20:59
--- NOTE | 2017-04-03 01:06 | PN ---
DATE: 04/01/2017 This is a late entry for 04/01/2017 and covers elements not covered in my initial note of 04/01/217. SUBJECTIVE: The patient was staffed at a treatment team meeting with the entire team morning of 04/01/2017, seen individually evening of 04/01/2017. She remains paranoid, somewhat repetitive, obsessive, pacing, anxious, restless, almost ecstatic. Quite obsessive. No CV, , pulmonary, eye, ENT system symptoms on review. She has vague somatic symptoms, nonspecific, up and down in her chair as I met with her in her room the evening of 04/01/2017. MENTAL STATUS EXAM: Oriented to herself and situation. Speech has some latency, coherent. Abstraction fair, computation impaired, language function intact, attention span short. Mood and affect remain somewhat anxious, labile. LABORATORY DATA: Reviewed. IMPRESSION: Unchanged from initial note. PLAN: Start Klonopin 0.25 mg at 9:00 a.m. and 2 p.m., Luvox 25 mg at bedtime for her mood, anxiety, obsessive-compulsive disorder symptoms. Maintain lithium, Risperdal along with trazodone and Zyprexa p.r.n. [place] level at last check was 0.6, will be repeated. Reviewed drug interactions, risk/benefit ratio favors no further change. MAN Chantell NANCE MD DR: ELLIS/fernando JOB#: [id number] / [id number]
[2017-04-03] MEDS: LEVOTHYROXINE 25 MCG TABLET. PO SCH (05:21)
[2017-04-03 06:17] VITALS: BP 119/75
[2017-04-03] MEDS: DOCUSATE SODIUM 100 MG CAPSULE PO SCH ×2 (07:32→19:28)
[2017-04-03] MEDS: PANTOPRAZOLE 40 MG TABLET. PO SCH ×2 (07:32→19:30)
[2017-04-03] MEDS: POTASSIUM CHLORIDE 10 MEQ TABLET.ER. PO SCH (07:32)
[2017-04-03] MEDS: cycloSPORINE 0.05% OPTH 1 DROP DROPERETTE OU SCH ×2 (07:33→19:28)
[2017-04-03] MEDS: METOPROLOL TART IMMED RELEASE 25 MG TABLET PO SCH ×2 (07:33→19:30)
[2017-04-03] MEDS: LITHIUM CARBONATE 300 MG TABLET PO SCH (07:33)
[2017-04-03] MEDS: clonazePAM 0.5 MG TABLET PO SCH ×2 (07:35→13:24)
[2017-04-03] MEDS: MAGNESIUM OXIDE 400 MG TABLET PO SCH ×3 (07:35→19:30)
[2017-04-03 10:37] LABS: LI 0.5 mmol/L (0.6-1.2)
[2017-04-03 17:00] VITALS: BP 122/79
[2017-04-03] MEDS: RIVAROXABAN 10 MG TABLET. PO SCH (17:32)
[2017-04-03] MEDS: LITHIUM CARBONATE 150 MG CAPSULE. PO SCH ×2 (19:28→21:00)
[2017-04-03] MEDS: traZODone 100 MG TABLET. PO SCH (19:29)
[2017-04-03] MEDS: ATORVASTATIN CALCIUM 20 MG TABLET PO SCH (19:29)
[2017-04-03] MEDS: MIRTAZAPINE 7.5 MG TABLET. PO SCH (19:30)
[2017-04-03] MEDS: risperiDONE 2 MG TABLET. PO SCH (19:30)
[2017-04-03] MEDS: QUEtiapine 100 MG TABLET. PO SCH (19:30)
[2017-04-03] MEDS: MONTELUKAST 10 MG TABLET. PO SCH (19:30)
--- NOTE | 2017-04-03 21:13 | PDOC ---
Exam Dixon Demential Exam: Dixon Note: Please also refer to the separate dictated note~for this date of service dictated separately.~Patient seen individually. Discussed the patient with Nursing staff reviewed the chart.~Reviewed interim history and current functioning. Reviewed vital signs,~Labs/ Radiology~and current medications noted below. Continue current treatment with the changes noted in the dictated addendum note Assessment: Vital Signs: Vital Signs Date Time Temp Pulse Resp B/P (MAP) Pulse Ox O2 Delivery O2 Flow Rate FiO2 04/03/17 19:30 76 122/79 04/03/17 17:00 98.8 20 95 Room Air I&O Intake and Output 04/04/17 07:00 Intake Total 480 ml Balance 480 ml Intake Oral 480 ml Labs: Laboratory Tests Test 04/03/17 07:40 [place] Level 0.5 mmol/L (0.6-1.2) L [place] Last Dose Date 04-02-17 [place] Last Dose Time 2100 Current Medications: Meds: Current Medications Acetaminophen (Tylenol) 650 mg PRN Q6HRS PRN PO PAIN / TEMP Last administered on 03/31/17 11:30; Start 03/25/17 at 16:45 Multi-Ingredient Ointment (Analgesic [place]) 1 zeus PRN QID PRN TP MUSCLE PAIN; Start 03/25/17 at 16:45 Al Hydroxide/Mg Hydroxide (Mylanta Plus Xs) 15 ml PRN AFTMEALHC PRN PO DYSPEPSIA Last administered on 04/02/17 03:58; Start 03/25/17 at 16:45 Magnesium Hydroxide (Milk Of Magnesia) 2,400 mg PRN QHS PRN PO CONSTIPATION; Start 03/25/17 at 16:45 Acetaminophen (Tylenol) 500 mg PRN Q6HRS PO ; Start 03/25/17 at 16:45 Atorvastatin Calcium (Lipitor) 20 mg QHS PO Last administered on 04/03/17 19: 29; Start 03/25/17 at 21:00 Docusate Sodium (Colace) 100 mg BID PO Last administered on 04/03/17 19:28; Start 03/25/17 at 21:00 Levothyroxine Sodium (Synthroid) 25 mcg DAILY06 PO Last administered on 05:21; Start 03/26/17 at 06:00 Metoprolol Tartrate (Lopressor) 25 mg BID PO Last administered on 04/03/17 19: 30; Start 03/25/17 at 21:00 Montelukast Sodium (Singulair) 10 mg HS PO Last administered on 04/03/17 19:30 ; Start 03/25/17 at 21:00 Pantoprazole Sodium (Protonix) 40 mg BID PO Last administered on 04/03/17 19: 30; Start 03/25/17 at 21:00 Risperidone (RisperDAL) 2 mg QHS PO Last administered on 03/28/17 19:32; Start 03/25/17 at 21:00; Stop 03/29/17 at 18:25; Status DC Rivaroxaban (Xarelto) 15 mg DAILYWSUP PO Last administered on 03/25/17 20:36; Start 03/25/17 at 17:00; Stop 03/26/17 at 18:03; Status DC Trazodone HCl (Desyrel) 100 mg PRN QHS PRN PO INSOMNIA; Start 03/25/17 at 16:45 ; Stop 03/26/17 at 18:44; Status DC Diltiazem HCl (Cardizem 24hr Cd) 240 mg DAILY PO Last administered on 07:32; Start 03/26/17 at 09:00 [place] Carbonate 150 mg QHS PO Last administered on 03/26/17 19:44; Start at 21:00; Stop 03/27/17 at 19:13; Status DC [place] Carbonate 300 mg DAILY PO Last administered on 04/03/17 07:33; Start 03/25/17 at 17:00 Potassium Chloride (Klor-Con) 10 meq DAILYWBKFT PO Last administered on 07:32; Start 03/26/17 at 08:00 Olanzapine (ZyPREXA ZYDIS) 2.5 mg PRN Q2HR PRN PO PSYCHOSIS/AGITATION Last administered on 03/31/17 11:11; Start 03/26/17 at 14:30 Vitamin D (Vitamin D3) 50,000 unit WEEKLY PO Last administered on 04/02/17 08: 04; Start 04/02/17 at 09:00 Magnesium Oxide (Magnesium Oxide) 400 mg TID PO Last administered on 04/03/17 19:30; Start 03/26/17 at 21:00 Rivaroxaban (Xarelto) 20 mg DAILYWSUP PO Last administered on 04/03/17 17:32; Start 03/27/17 at 08:00 Trazodone HCl (Desyrel) 100 mg QHS PO Last administered on 03/27/17 20:20; Start 03/26/17 at 21:00; Stop 03/28/17 at 18:59; Status DC Trazodone HCl (Desyrel) 100 mg PRN QHS PRN PO INSOMNIA; Start 03/26/17 at 21:00 ; Stop 03/28/17 at 18:59; Status DC [place] Carbonate 300 mg QHS PO Last administered on 04/03/17 19:28; Start at 21:00; Stop 04/03/17 at 19:51; Status DC Trazodone HCl (Desyrel) 150 mg PRN QHS PRN PO INSOMNIA Last administered on 00:08; Start 03/28/17 at 21:00 Trazodone HCl (Desyrel) 150 mg QHS PO Last administered on 04/03/17 19:29; Start 03/28/17 at 21:00 Risperidone (RisperDAL) 2 mg QHS PO Last administered on 04/03/17 19:30; Start 03/29/17 at 21:00 Risperidone (RisperDAL) 0.5 mg HS PO Last administered on 03/30/17 19:47; Start 03/29/17 at 21:00; Stop 03/31/17 at 18:47; Status DC Mirtazapine (Remeron) 7.5 mg QHS PO Last administered on 04/03/17 19:30; Start 03/30/17 at 21:00 Quetiapine Fumarate (SEROquel) 50 mg QHS PO Last administered on 04/01/17 19: 47; Start 03/31/17 at 21:00; Stop 04/02/17 at 09:00; Status DC Quetiapine Fumarate (SEROquel) 100 mg HS PO Last administered on 04/03/17 19: 30; Start 04/02/17 at 21:00 Clonazepam (KlonoPIN) 0.25 mg BID92 PO Last administered on 04/03/17 13:24; Start 04/01/17 at 14:00 Fluvoxamine Maleate (Luvox) 25 mg HS PO Last administered on 04/03/17 19:30; Start 04/01/17 at 21:00 Cyclosporine (Restasis) 1 drop BID OU Last administered on 04/03/17 19:28; Start 04/02/17 at 21:00 [place] Carbonate 450 mg QHS PO ; Start 04/03/17 at 21:00 Active Scripts Active Reported Trazodone Hcl 100 Mg Tablet 1 Tab PO PRN QHS Risperdal (Risperidone) 2 Mg Tablet 1 Tab PO QHS Xarelto (Rivaroxaban) 10 Mg Tablet 20 Mg PO DAILYWSUP Metoprolol Tartrate 25 Mg Tablet 1 Tab PO BID [place] Carbonate 150 Mg Capsule 1 Cap PO HS Acetaminophen 500 Mg Tablet 1 Tab PO PRN Q6HRS [place] Carbonate 300 Mg Tablet 300 Mg PO DAILY Pantoprazole Sodium 40 Mg Tablet.dr 40 Mg PO BID Doc-Q-Lace (Docusate Sodium) 100 Mg Capsule 100 Mg PO BID Potassium Chloride 10 Meq Tablet.er 10 Meq PO DAILYWBKFT Diltiazem 24Hr ER (Diltiazem HCl) 240 Mg Tab.er.24h 240 Mg PO DAILY Atorvastatin Calcium 20 Mg Tablet 20 Mg PO QHS NOT GIVEN IN THE HOSPITAL NEXT DOSE DUE: DATE: RESTART TODAY TIME: AT BEDTIME Levothyroxine Sodium 25 Mcg Tablet 1 Tab PO DAILY07 LAST DOSE GIVEN: DATE:TODAY TIME: BEFORE BREAKFAST NEXT DOSE DUE: DATE: TOMORROW TIME: BEFORE BREAKFAST Singulair Tablet (Montelukast Sodium) 10 Mg Tablet 10 Mg PO HS NOT GIVEN IN HOSPITAL NEXT DOSE DUE: DATE: RESTART TODAY TIME: AT BEDTIME Diagnosis: Problems: (1) Anxiety disorder (2) Anxiety disorder (3) Bipolar affective disorder (4) Bipolar affective disorder (5) Impulse control disorder (6) Delusional disorder (7) Bipolar affective, mixed, sev w/ psych (8) Bipolar affective, mixed, sev w/ psych (9) Dementia, vascular, with depression (10) Dementia, vascular, with delusions EULALIA NANCE MD Apr 03, 2017 21:13
--- NOTE | 2017-04-03 21:29 | PN ---
DATE: 04/02/2017 This late entry for 04/02/2017 covers elements not covered in my initial note of 04/02/2017. SUBJECTIVE: I met with the patient evening of 04/02/2017. She is resistive to medications, anxious, somewhat obsessive, feeling Xarelto is causing her GI problems. We will be repeating the lithium level. REVIEW OF SYSTEMS: Positive vague somatic symptoms, GI symptoms. No CV, , pulmonary, eye system symptoms on review. She is less up and down from a chair as I met with her in her room. MENTAL STATUS EXAMINATION: Oriented to herself and situation, remembered my name. Speech has some latency, coherent, often responses monosyllabic. Abstraction fair, computation impaired, language function intact, attention span short. Mood and affect remain somewhat anxious, labile, obsessed. LABORATORY DATA: Reviewed. IMPRESSION: Unchanged from initial note. PLAN: Continue current psychotropics, including Luvox 25 mg at bedtime. Reviewed drug contractions, risk/benefit ratio favors no further change. Check lithium level on 04/03/2017 in the morning. MAN Chantell NANCE MD DR: ELLIS/fernando JOB#: [id number] / [id number]
[2017-04-04] MEDS: LEVOTHYROXINE 25 MCG TABLET. PO SCH (05:02)
[2017-04-04 06:18] VITALS: BP 142/88
[2017-04-04] MEDS: DOCUSATE SODIUM 100 MG CAPSULE PO SCH ×2 (07:38→19:48)
[2017-04-04] MEDS: PANTOPRAZOLE 40 MG TABLET. PO SCH ×2 (07:38→19:48)
[2017-04-04] MEDS: MAGNESIUM OXIDE 400 MG TABLET PO SCH ×3 (07:38→19:48)
[2017-04-04] MEDS: cycloSPORINE 0.05% OPTH 1 DROP DROPERETTE OU SCH ×2 (07:38→19:49)
[2017-04-04] MEDS: LITHIUM CARBONATE 300 MG TABLET PO SCH (07:38)
[2017-04-04] MEDS: METOPROLOL TART IMMED RELEASE 25 MG TABLET PO SCH ×2 (07:39→19:48)
[2017-04-04] MEDS: POTASSIUM CHLORIDE 10 MEQ TABLET.ER. PO SCH (07:39)
[2017-04-04] MEDS: clonazePAM 0.5 MG TABLET PO SCH ×2 (07:40→13:08)
[2017-04-04 16:23] VITALS: BP 124/65
[2017-04-04] MEDS: RIVAROXABAN 10 MG TABLET. PO SCH (17:00)
[2017-04-04] MEDS: traZODone 100 MG TABLET. PO SCH (19:47)
[2017-04-04] MEDS: risperiDONE 2 MG TABLET. PO SCH (19:47)
[2017-04-04] MEDS: MIRTAZAPINE 7.5 MG TABLET. PO SCH (19:47)
[2017-04-04] MEDS: QUEtiapine 100 MG TABLET. PO SCH (19:48)
[2017-04-04] MEDS: MONTELUKAST 10 MG TABLET. PO SCH (19:48)
[2017-04-04] MEDS: ATORVASTATIN CALCIUM 20 MG TABLET PO SCH (19:48)
[2017-04-04] MEDS: LITHIUM CARBONATE 150 MG CAPSULE. PO SCH (19:48)
--- NOTE | 2017-04-04 20:13 | PN ---
DATE: 04/03/2017 This is a late entry 04/03/2017, covers the elements not covered in my initial note 04/03/2017. SUBJECTIVE: The patient was seen individually in her room, evening of 04/03/2017. Per nursing report, the patient has been obsessed with her repetitive ruminating, and varies and vacillates in her moods around this. She is compliant with her medications. [place] level is 0.51 300 b.i.d. and we will increase to 300 in the morning and 450 bedtime with CBC, CMP, lithium level, repeat in 3 days. REVIEW OF SYSTEMS: She is less anxious, but has vague somatic symptoms. No CV, , pulmonary, eye, ENT system symptoms on review. MENTAL STATUS EXAM: She is reasonably oriented. Speech is coherent, eye contact is poor. Abstraction fair, computation impaired, language function intact, attention span short. Mood and affect still somewhat anxious, labile, paranoid. LABORATORY DATA: Reviewed. IMPRESSION: Unchanged from initial note. PLAN: Adjust the lithium as noted above. Maintain the rest of the psychotropics and Luvox was started for OCD symptoms, 25 mg at bedtime. We will adjust further as clinically indicated. EULALIA NANCE MD DR: ELLIS/fernando JOB#: [id number] / [id number]
--- NOTE | 2017-04-04 22:44 | PDOC ---
Exam Dixon Demential Exam: Dixon Note: Please also refer to the separate dictated note~for this date of service dictated separately.~Patient seen individually. Discussed the patient with Nursing staff reviewed the chart.~Reviewed interim history and current functioning. Reviewed vital signs,~Labs/ Radiology~and current medications noted below. Continue current treatment with the changes noted in the dictated addendum note Assessment: Vital Signs: Vital Signs Date Time Temp Pulse Resp B/P (MAP) Pulse Ox O2 Delivery O2 Flow Rate FiO2 04/04/17 19:48 75 124/65 04/04/17 16:23 98.0 18 99 04/03/17 17:00 Room Air I&O Intake and Output 04/05/17 07:00 Intake Total 1560 ml Balance 1560 ml Intake Oral 1560 ml # Voids 1 Current Medications: Meds: Current Medications Acetaminophen (Tylenol) 650 mg PRN Q6HRS PRN PO PAIN / TEMP Last administered on 03/31/17 11:30; Start 03/25/17 at 16:45 Multi-Ingredient Ointment (Analgesic [place]) 1 zeus PRN QID PRN TP MUSCLE PAIN; Start 03/25/17 at 16:45 Al Hydroxide/Mg Hydroxide (Mylanta Plus Xs) 15 ml PRN AFTMEALHC PRN PO DYSPEPSIA Last administered on 04/02/17 03:58; Start 03/25/17 at 16:45 Magnesium Hydroxide (Milk Of Magnesia) 2,400 mg PRN QHS PRN PO CONSTIPATION; Start 03/25/17 at 16:45 Acetaminophen (Tylenol) 500 mg PRN Q6HRS PO ; Start 03/25/17 at 16:45 Atorvastatin Calcium (Lipitor) 20 mg QHS PO Last administered on 04/04/17 19: 48; Start 03/25/17 at 21:00 Docusate Sodium (Colace) 100 mg BID PO Last administered on 04/04/17 19:48; Start 03/25/17 at 21:00 Levothyroxine Sodium (Synthroid) 25 mcg DAILY06 PO Last administered on 05:02; Start 03/26/17 at 06:00 Metoprolol Tartrate (Lopressor) 25 mg BID PO Last administered on 04/04/17 19: 48; Start 03/25/17 at 21:00 Montelukast Sodium (Singulair) 10 mg HS PO Last administered on 04/04/17 19:48 ; Start 03/25/17 at 21:00 Pantoprazole Sodium (Protonix) 40 mg BID PO Last administered on 04/04/17 19: 48; Start 03/25/17 at 21:00 Risperidone (RisperDAL) 2 mg QHS PO Last administered on 03/28/17 19:32; Start 03/25/17 at 21:00; Stop 03/29/17 at 18:25; Status DC Rivaroxaban (Xarelto) 15 mg DAILYWSUP PO Last administered on 03/25/17 20:36; Start 03/25/17 at 17:00; Stop 03/26/17 at 18:03; Status DC Trazodone HCl (Desyrel) 100 mg PRN QHS PRN PO INSOMNIA; Start 03/25/17 at 16:45 ; Stop 03/26/17 at 18:44; Status DC Diltiazem HCl (Cardizem 24hr Cd) 240 mg DAILY PO Last administered on 07:38; Start 03/26/17 at 09:00 [place] Carbonate 150 mg QHS PO Last administered on 03/26/17 19:44; Start at 21:00; Stop 03/27/17 at 19:13; Status DC [place] Carbonate 300 mg DAILY PO Last administered on 04/04/17 07:38; Start 03/25/17 at 17:00 Potassium Chloride (Klor-Con) 10 meq DAILYWBKFT PO Last administered on 07:39; Start 03/26/17 at 08:00 Olanzapine (ZyPREXA ZYDIS) 2.5 mg PRN Q2HR PRN PO PSYCHOSIS/AGITATION Last administered on 03/31/17 11:11; Start 03/26/17 at 14:30 Vitamin D (Vitamin D3) 50,000 unit WEEKLY PO Last administered on 04/02/17 08: 04; Start 04/02/17 at 09:00 Magnesium Oxide (Magnesium Oxide) 400 mg TID PO Last administered on 04/04/17 19:48; Start 03/26/17 at 21:00 Rivaroxaban (Xarelto) 20 mg DAILYWSUP PO Last administered on 04/04/17 17:00; Start 03/27/17 at 08:00 Trazodone HCl (Desyrel) 100 mg QHS PO Last administered on 03/27/17 20:20; Start 03/26/17 at 21:00; Stop 03/28/17 at 18:59; Status DC Trazodone HCl (Desyrel) 100 mg PRN QHS PRN PO INSOMNIA; Start 03/26/17 at 21:00 ; Stop 03/28/17 at 18:59; Status DC [place] Carbonate 300 mg QHS PO Last administered on 04/03/17 19:28; Start at 21:00; Stop 04/03/17 at 19:51; Status DC Trazodone HCl (Desyrel) 150 mg PRN QHS PRN PO INSOMNIA Last administered on 00:08; Start 03/28/17 at 21:00 Trazodone HCl (Desyrel) 150 mg QHS PO Last administered on 04/04/17 19:47; Start 03/28/17 at 21:00 Risperidone (RisperDAL) 2 mg QHS PO Last administered on 04/04/17 19:47; Start 03/29/17 at 21:00 Risperidone (RisperDAL) 0.5 mg HS PO Last administered on 03/30/17 19:47; Start 03/29/17 at 21:00; Stop 03/31/17 at 18:47; Status DC Mirtazapine (Remeron) 7.5 mg QHS PO Last administered on 04/04/17 19:47; Start 03/30/17 at 21:00 Quetiapine Fumarate (SEROquel) 50 mg QHS PO Last administered on 04/01/17 19: 47; Start 03/31/17 at 21:00; Stop 04/02/17 at 09:00; Status DC Quetiapine Fumarate (SEROquel) 100 mg HS PO Last administered on 04/04/17 19: 48; Start 04/02/17 at 21:00 Clonazepam (KlonoPIN) 0.25 mg BID92 PO Last administered on 04/04/17 13:08; Start 04/01/17 at 14:00 Fluvoxamine Maleate (Luvox) 25 mg HS PO Last administered on 04/04/17 19:48; Start 04/01/17 at 21:00 Cyclosporine (Restasis) 1 drop BID OU Last administered on 04/04/17 19:49; Start 04/02/17 at 21:00 [place] Carbonate 450 mg QHS PO Last administered on 04/04/17 19:48; Start at 21:00 Active Scripts Active Reported Trazodone Hcl 100 Mg Tablet 1 Tab PO PRN QHS Risperdal (Risperidone) 2 Mg Tablet 1 Tab PO QHS Xarelto (Rivaroxaban) 10 Mg Tablet 20 Mg PO DAILYWSUP Metoprolol Tartrate 25 Mg Tablet 1 Tab PO BID [place] Carbonate 150 Mg Capsule 1 Cap PO HS Acetaminophen 500 Mg Tablet 1 Tab PO PRN Q6HRS [place] Carbonate 300 Mg Tablet 300 Mg PO DAILY Pantoprazole Sodium 40 Mg Tablet.dr 40 Mg PO BID Doc-Q-Lace (Docusate Sodium) 100 Mg Capsule 100 Mg PO BID Potassium Chloride 10 Meq Tablet.er 10 Meq PO DAILYWBKFT Diltiazem 24Hr ER (Diltiazem HCl) 240 Mg Tab.er.24h 240 Mg PO DAILY Atorvastatin Calcium 20 Mg Tablet 20 Mg PO QHS NOT GIVEN IN THE HOSPITAL NEXT DOSE DUE: DATE: RESTART TODAY TIME: AT BEDTIME Levothyroxine Sodium 25 Mcg Tablet 1 Tab PO DAILY07 LAST DOSE GIVEN: DATE:TODAY TIME: BEFORE BREAKFAST NEXT DOSE DUE: DATE: TOMORROW TIME: BEFORE BREAKFAST Singulair Tablet (Montelukast Sodium) 10 Mg Tablet 10 Mg PO HS NOT GIVEN IN HOSPITAL NEXT DOSE DUE: DATE: RESTART TODAY TIME: AT BEDTIME Diagnosis: Problems: (1) Anxiety disorder (2) Anxiety disorder (3) Bipolar affective disorder (4) Bipolar affective disorder (5) Impulse control disorder (6) Delusional disorder (7) Bipolar affective, mixed, sev w/ psych (8) Bipolar affective, mixed, sev w/ psych (9) Dementia, vascular, with depression (10) Dementia, vascular, with delusions EULALIA NANCE MD Apr 04, 2017 22:44
[2017-04-05] MEDS: LEVOTHYROXINE 25 MCG TABLET. PO SCH (05:34)
[2017-04-05 06:27] VITALS: BP 120/80
[2017-04-05] MEDS: POTASSIUM CHLORIDE 10 MEQ TABLET.ER. PO SCH (08:20)
[2017-04-05] MEDS: MAGNESIUM OXIDE 400 MG TABLET PO SCH ×3 (08:20→19:46)
[2017-04-05] MEDS: LITHIUM CARBONATE 300 MG TABLET PO SCH (08:20)
[2017-04-05] MEDS: DOCUSATE SODIUM 100 MG CAPSULE PO SCH ×2 (08:21→19:43)
[2017-04-05] MEDS: PANTOPRAZOLE 40 MG TABLET. PO SCH ×2 (08:21→19:46)
[2017-04-05] MEDS: METOPROLOL TART IMMED RELEASE 25 MG TABLET PO SCH ×2 (08:21→19:45)
[2017-04-05] MEDS: cycloSPORINE 0.05% OPTH 1 DROP DROPERETTE OU SCH ×2 (08:21→19:43)
[2017-04-05] MEDS: clonazePAM 0.5 MG TABLET PO SCH ×2 (08:22→13:19)
[2017-04-05] MEDS: ACETAMINOPHEN 325 MG TABLET PO PRN (11:42)
[2017-04-05 16:25] VITALS: BP 105/73
[2017-04-05] MEDS: RIVAROXABAN 10 MG TABLET. PO SCH (16:46)
[2017-04-05] MEDS: LITHIUM CARBONATE 150 MG CAPSULE. PO SCH (19:43)
[2017-04-05] MEDS: traZODone 100 MG TABLET. PO SCH (19:44)
[2017-04-05] MEDS: ATORVASTATIN CALCIUM 20 MG TABLET PO SCH (19:44)
[2017-04-05] MEDS: risperiDONE 2 MG TABLET. PO SCH (19:44)
[2017-04-05] MEDS: MIRTAZAPINE 7.5 MG TABLET. PO SCH (19:45)
[2017-04-05] MEDS: MONTELUKAST 10 MG TABLET. PO SCH (19:46)
[2017-04-05] MEDS: QUEtiapine 100 MG TABLET. PO SCH (19:46)
--- NOTE | 2017-04-05 21:02 | PDOC ---
Exam Dixon Demential Exam: [place] Note: Please also refer to the separate dictated note~for this date of service dictated separately.~Patient seen individually. Discussed the patient with Nursing staff reviewed the chart.~Reviewed interim history and current functioning. Reviewed vital signs,~Labs/ Radiology~and current medications noted below. Continue current treatment with the changes noted in the dictated addendum note Assessment: Vital Signs: Vital Signs Date Time Temp Pulse Resp B/P (MAP) Pulse Ox O2 Delivery O2 Flow Rate FiO2 04/05/17 19:45 78 105/73 04/05/17 16:25 97.8 18 93 04/03/17 17:00 Room Air I&O Intake and Output 04/06/17 07:00 Intake Total 780 ml Balance 780 ml Intake Oral 780 ml Current Medications: Meds: Current Medications Acetaminophen (Tylenol) 650 mg PRN Q6HRS PRN PO PAIN / TEMP Last administered on 04/05/17 11:42; Start 03/25/17 at 16:45 Multi-Ingredient Ointment (Analgesic [place]) 1 zeus PRN QID PRN TP MUSCLE PAIN; Start 03/25/17 at 16:45 Al Hydroxide/Mg Hydroxide (Mylanta Plus Xs) 15 ml PRN AFTMEALHC PRN PO DYSPEPSIA Last administered on 04/02/17 03:58; Start 03/25/17 at 16:45 Magnesium Hydroxide (Milk Of Magnesia) 2,400 mg PRN QHS PRN PO CONSTIPATION; Start 03/25/17 at 16:45 Acetaminophen (Tylenol) 500 mg PRN Q6HRS PO ; Start 03/25/17 at 16:45 Atorvastatin Calcium (Lipitor) 20 mg QHS PO Last administered on 04/05/17 19: 44; Start 03/25/17 at 21:00 Docusate Sodium (Colace) 100 mg BID PO Last administered on 04/05/17 19:43; Start 03/25/17 at 21:00 Levothyroxine Sodium (Synthroid) 25 mcg DAILY06 PO Last administered on 05:34; Start 03/26/17 at 06:00 Metoprolol Tartrate (Lopressor) 25 mg BID PO Last administered on 04/05/17 19: 45; Start 03/25/17 at 21:00 Montelukast Sodium (Singulair) 10 mg HS PO Last administered on 04/05/17 19:46 ; Start 03/25/17 at 21:00 Pantoprazole Sodium (Protonix) 40 mg BID PO Last administered on 04/05/17 19: 46; Start 03/25/17 at 21:00 Risperidone (RisperDAL) 2 mg QHS PO Last administered on 03/28/17 19:32; Start 03/25/17 at 21:00; Stop 03/29/17 at 18:25; Status DC Rivaroxaban (Xarelto) 15 mg DAILYWSUP PO Last administered on 03/25/17 20:36; Start 03/25/17 at 17:00; Stop 03/26/17 at 18:03; Status DC Trazodone HCl (Desyrel) 100 mg PRN QHS PRN PO INSOMNIA; Start 03/25/17 at 16:45 ; Stop 03/26/17 at 18:44; Status DC Diltiazem HCl (Cardizem 24hr Cd) 240 mg DAILY PO Last administered on 08:21; Start 03/26/17 at 09:00 [place] Carbonate 150 mg QHS PO Last administered on 03/26/17 19:44; Start at 21:00; Stop 03/27/17 at 19:13; Status DC [place] Carbonate 300 mg DAILY PO Last administered on 04/05/17 08:20; Start 03/25/17 at 17:00 Potassium Chloride (Klor-Con) 10 meq DAILYWBKFT PO Last administered on 08:20; Start 03/26/17 at 08:00 Olanzapine (ZyPREXA ZYDIS) 2.5 mg PRN Q2HR PRN PO PSYCHOSIS/AGITATION Last administered on 04/05/17 14:30; Start 03/26/17 at 14:30 Vitamin D (Vitamin D3) 50,000 unit WEEKLY PO Last administered on 04/02/17 08: 04; Start 04/02/17 at 09:00 Magnesium Oxide (Magnesium Oxide) 400 mg TID PO Last administered on 04/05/17 19:46; Start 03/26/17 at 21:00 Rivaroxaban (Xarelto) 20 mg DAILYWSUP PO Last administered on 04/05/17 16:46; Start 03/27/17 at 08:00 Trazodone HCl (Desyrel) 100 mg QHS PO Last administered on 03/27/17 20:20; Start 03/26/17 at 21:00; Stop 03/28/17 at 18:59; Status DC Trazodone HCl (Desyrel) 100 mg PRN QHS PRN PO INSOMNIA; Start 03/26/17 at 21:00 ; Stop 03/28/17 at 18:59; Status DC [place] Carbonate 300 mg QHS PO Last administered on 04/03/17 19:28; Start at 21:00; Stop 04/03/17 at 19:51; Status DC Trazodone HCl (Desyrel) 150 mg PRN QHS PRN PO INSOMNIA Last administered on 00:08; Start 03/28/17 at 21:00 Trazodone HCl (Desyrel) 150 mg QHS PO Last administered on 04/05/17 19:44; Start 03/28/17 at 21:00 Risperidone (RisperDAL) 2 mg QHS PO Last administered on 04/05/17 19:44; Start 03/29/17 at 21:00 Risperidone (RisperDAL) 0.5 mg HS PO Last administered on 03/30/17 19:47; Start 03/29/17 at 21:00; Stop 03/31/17 at 18:47; Status DC Mirtazapine (Remeron) 7.5 mg QHS PO Last administered on 04/05/17 19:45; Start 03/30/17 at 21:00 Quetiapine Fumarate (SEROquel) 50 mg QHS PO Last administered on 04/01/17 19: 47; Start 03/31/17 at 21:00; Stop 04/02/17 at 09:00; Status DC Quetiapine Fumarate (SEROquel) 100 mg HS PO Last administered on 04/05/17 19: 46; Start 04/02/17 at 21:00 Clonazepam (KlonoPIN) 0.25 mg BID92 PO Last administered on 04/05/17 13:19; Start 04/01/17 at 14:00 Fluvoxamine Maleate (Luvox) 25 mg HS PO Last administered on 04/04/17 19:48; Start 04/01/17 at 21:00; Stop 04/05/17 at 17:41; Status DC Cyclosporine (Restasis) 1 drop BID OU Last administered on 04/05/17 19:43; Start 04/02/17 at 21:00 [place] Carbonate 450 mg QHS PO Last administered on 04/05/17 19:43; Start at 21:00 Fluvoxamine Maleate (Luvox) 50 mg HS PO Last administered on 04/05/17 19:45; Start 04/05/17 at 21:00 Active Scripts Active Reported Trazodone Hcl 100 Mg Tablet 1 Tab PO PRN QHS Risperdal (Risperidone) 2 Mg Tablet 1 Tab PO QHS Xarelto (Rivaroxaban) 10 Mg Tablet 20 Mg PO DAILYWSUP Metoprolol Tartrate 25 Mg Tablet 1 Tab PO BID [place] Carbonate 150 Mg Capsule 1 Cap PO HS Acetaminophen 500 Mg Tablet 1 Tab PO PRN Q6HRS [place] Carbonate 300 Mg Tablet 300 Mg PO DAILY Pantoprazole Sodium 40 Mg Tablet.dr 40 Mg PO BID Doc-Q-Lace (Docusate Sodium) 100 Mg Capsule 100 Mg PO BID Potassium Chloride 10 Meq Tablet.er 10 Meq PO DAILYWBKFT Diltiazem 24Hr ER (Diltiazem HCl) 240 Mg Tab.er.24h 240 Mg PO DAILY Atorvastatin Calcium 20 Mg Tablet 20 Mg PO QHS NOT GIVEN IN THE HOSPITAL NEXT DOSE DUE: DATE: RESTART TODAY TIME: AT BEDTIME Levothyroxine Sodium 25 Mcg Tablet 1 Tab PO DAILY07 LAST DOSE GIVEN: DATE:TODAY TIME: BEFORE BREAKFAST NEXT DOSE DUE: DATE: TOMORROW TIME: BEFORE BREAKFAST Singulair Tablet (Montelukast Sodium) 10 Mg Tablet 10 Mg PO HS NOT GIVEN IN HOSPITAL NEXT DOSE DUE: DATE: RESTART TODAY TIME: AT BEDTIME Diagnosis: Problems: (1) Anxiety disorder (2) Anxiety disorder (3) Bipolar affective disorder (4) Bipolar affective disorder (5) Impulse control disorder (6) Delusional disorder (7) Bipolar affective, mixed, sev w/ psych (8) Bipolar affective, mixed, sev w/ psych (9) Dementia, vascular, with depression (10) Dementia, vascular, with delusions EUALLIA NANCE MD Apr 05, 2017 21:02
[2017-04-06] MEDS: traZODone 100 MG TABLET. PO PRN (02:34)
[2017-04-06] MEDS: LEVOTHYROXINE 25 MCG TABLET. PO SCH (06:10)
[2017-04-06 06:20] VITALS: BP 121/78
--- NOTE | 2017-04-06 09:08 | PN ---
DATE: 04/04/2017 PSYCHIATRIC PROGRESS NOTE This late entry 04/04/2017, covers elements not covered in my initial note of 04/04/2017. I met with the patient in the evening of 04/04/2017. Per nursing report, the patient has been somewhat sedated sleepy today, but calmer, less anxious, restless, less labile. Appetite is better. Previous evening, she was obsessed about her credit card and her , difficult to understand exactly what she was saying or implying. She has vague somatic symptoms. No CV, , pulmonary, eye, ENT system symptoms on review. MENTAL STATUS EXAM: Oriented to herself and situation. Speech is coherent, abstraction fair, eye contact is poor. Attention span short, less anxious, less repetitive, less obsessive. No suicidal or homicidal ideation. LABORATORY DATA: Reviewed. IMPRESSION: Unchanged from my initial note. PLAN: Continue current psychotropics, Risperdal 2.5 mg at bedtime, lithium carbonate 300 b.i.d., trazodone 150 at bedtime, may repeat x 1, Zyprexa p.r.n., Luvox 25 mg at bedtime, Klonopin 0.25 mg twice a day. I will observe the patient another day or two and then if obsessive symptoms persist, may increase the Luvox, lithium was increased. Repeat labs level are awaited. These will be done 04/06/2017. We will adjust lithium thereafter. EULALIA NANCE MD DR: ELLIS/fernando JOB#: [id number] / [id number]
[2017-04-06 10:23] LABS: HEMATOCRIT 42.4 % (36.0-47.0); HEMOGLOBIN 13.9 g/dL (12.0-15.5); RED BLOOD COUNT 4.43 x10^6/uL (3.50-5.40); RED CELL DISTRIBUTION WIDTH 13.6 % (11.5-14.5); WHITE BLOOD COUNT 7.9 x10^3/uL (4.0-11.0)
[2017-04-06] MEDS: POTASSIUM CHLORIDE 10 MEQ TABLET.ER. PO SCH (10:24)
[2017-04-06] MEDS: PANTOPRAZOLE 40 MG TABLET. PO SCH ×2 (10:25→19:54)
[2017-04-06] MEDS: DOCUSATE SODIUM 100 MG CAPSULE PO SCH ×2 (10:25→19:52)
[2017-04-06] MEDS: MAGNESIUM OXIDE 400 MG TABLET PO SCH ×3 (10:25→19:54)
[2017-04-06] MEDS: LITHIUM CARBONATE 300 MG TABLET PO SCH (10:25)
[2017-04-06] MEDS: cycloSPORINE 0.05% OPTH 1 DROP DROPERETTE OU SCH ×2 (10:26→19:52)
[2017-04-06] MEDS: METOPROLOL TART IMMED RELEASE 25 MG TABLET PO SCH ×2 (10:26→19:53)
[2017-04-06] MEDS: clonazePAM 0.5 MG TABLET PO SCH ×2 (10:27→14:08)
[2017-04-06 10:51] LABS: ALBUMIN 3.4 g/dL (3.4-5.0); ALBUMIN/GLOBULIN RATIO 1.3 (1.0-1.7); CALCIUM 8.8 mg/dL (8.5-10.1); CREATININE 0.9 mg/dL (0.6-1.0); GFR 62.8; POTASSIUM 4.1 mmol/L (3.5-5.1); TOTAL BILIRUBIN 0.2 mg/dL (0.2-1.0); TOTAL PROTEIN 6.1 g/dL (6.4-8.2)
[2017-04-06 13:59] LABS: LI 0.6 mmol/L (0.6-1.2)
[2017-04-06 16:07] VITALS: BP 101/67
[2017-04-06] MEDS: RIVAROXABAN 10 MG TABLET. PO SCH (16:56)
[2017-04-06] MEDS: ATORVASTATIN CALCIUM 20 MG TABLET PO SCH (19:53)
[2017-04-06] MEDS: traZODone 100 MG TABLET. PO SCH (19:53)
[2017-04-06] MEDS: MONTELUKAST 10 MG TABLET. PO SCH (19:54)
[2017-04-06] MEDS: MIRTAZAPINE 7.5 MG TABLET. PO SCH (19:54)
[2017-04-06] MEDS: QUEtiapine 100 MG TABLET. PO SCH (19:54)
[2017-04-06] MEDS: risperiDONE 2 MG TABLET. PO SCH (19:54)
[2017-04-06] MEDS: LITHIUM CARBONATE 150 MG CAPSULE. PO SCH (19:56)
--- NOTE | 2017-04-06 20:55 | PDOC ---
Exam Dixon Demential Exam: Dixon Note: Please also refer to the separate dictated note~for this date of service dictated separately.~Patient seen individually. Discussed the patient with Nursing staff reviewed the chart.~Reviewed interim history and current functioning. Reviewed vital signs,~Labs/ Radiology~and current medications noted below. Continue current treatment with the changes noted in the dictated addendum note Assessment: Vital Signs: Vital Signs Date Time Temp Pulse Resp B/P (MAP) Pulse Ox O2 Delivery O2 Flow Rate FiO2 04/06/17 19:53 66 101/67 04/06/17 16:07 97.8 16 97 04/03/17 17:00 Room Air I&O Intake and Output 04/07/17 07:00 Intake Total 760 ml Balance 760 ml Intake Oral 760 ml # Bowel Movements 1 Labs: Laboratory Tests Test 04/06/17 10:15 White Blood Count 7.9 x10^3/uL (4.0-11.0) Red Blood Count 4.43 x10^6/uL (3.50-5.40) Hemoglobin 13.9 g/dL (12.0-15.5) Hematocrit 42.4 % (36.0-47.0) Mean Corpuscular Volume 96 fL (79-100) Mean Corpuscular Hemoglobin 31 pg (25-35) Mean Corpuscular Hemoglobin Concent 33 g/dL (31-37) Red Cell Distribution Width 13.6 % (11.5-14.5) Platelet Count 186 x10^3/uL (140-400) Sodium Level 142 mmol/L (136-145) Potassium Level 4.1 mmol/L (3.5-5.1) Chloride Level 110 mmol/L (98-107) H Carbon Dioxide Level 20 mmol/L (21-32) L Anion Gap 12 (6-14) Blood Urea Nitrogen 13 mg/dL (7-20) Creatinine 0.9 mg/dL (0.6-1.0) Estimated GFR (Cockcroft-Gault) 62.8 BUN/Creatinine Ratio 14 (6-20) Glucose Level 146 mg/dL (70-99) H Calcium Level 8.8 mg/dL (8.5-10.1) Total Bilirubin 0.2 mg/dL (0.2-1.0) Aspartate Amino Transferase (AST) 24 U/L (15-37) Alanine Aminotransferase (ALT) 35 U/L (14-59) Alkaline Phosphatase 86 U/L (46-116) Total Protein 6.1 g/dL (6.4-8.2) L Albumin 3.4 g/dL (3.4-5.0) Albumin/Globulin Ratio 1.3 (1.0-1.7) [place] Level 0.6 mmol/L (0.6-1.2) [place] Last Dose Date 04/05/17 [place] Last Dose Time 2100 Current Medications: Meds: Current Medications Acetaminophen (Tylenol) 650 mg PRN Q6HRS PRN PO PAIN / TEMP Last administered on 04/05/17 11:42; Start 03/25/17 at 16:45 Multi-Ingredient Ointment (Analgesic [place]) 1 zeus PRN QID PRN TP MUSCLE PAIN; Start 03/25/17 at 16:45 Al Hydroxide/Mg Hydroxide (Mylanta Plus Xs) 15 ml PRN AFTMEALHC PRN PO DYSPEPSIA Last administered on 04/02/17 03:58; Start 03/25/17 at 16:45 Magnesium Hydroxide (Milk Of Magnesia) 2,400 mg PRN QHS PRN PO CONSTIPATION; Start 03/25/17 at 16:45 Acetaminophen (Tylenol) 500 mg PRN Q6HRS PO ; Start 03/25/17 at 16:45 Atorvastatin Calcium (Lipitor) 20 mg QHS PO Last administered on 04/06/17 19: 53; Start 03/25/17 at 21:00 Docusate Sodium (Colace) 100 mg BID PO Last administered on 04/06/17 19:52; Start 03/25/17 at 21:00 Levothyroxine Sodium (Synthroid) 25 mcg DAILY06 PO Last administered on 06:10; Start 03/26/17 at 06:00 Metoprolol Tartrate (Lopressor) 25 mg BID PO Last administered on 04/06/17 19: 53; Start 03/25/17 at 21:00 Montelukast Sodium (Singulair) 10 mg HS PO Last administered on 04/06/17 19:54 ; Start 03/25/17 at 21:00 Pantoprazole Sodium (Protonix) 40 mg BID PO Last administered on 04/06/17 19: 54; Start 03/25/17 at 21:00 Risperidone (RisperDAL) 2 mg QHS PO Last administered on 03/28/17 19:32; Start 03/25/17 at 21:00; Stop 03/29/17 at 18:25; Status DC Rivaroxaban (Xarelto) 15 mg DAILYWSUP PO Last administered on 03/25/17 20:36; Start 03/25/17 at 17:00; Stop 03/26/17 at 18:03; Status DC Trazodone HCl (Desyrel) 100 mg PRN QHS PRN PO INSOMNIA; Start 03/25/17 at 16:45 ; Stop 03/26/17 at 18:44; Status DC Diltiazem HCl (Cardizem 24hr Cd) 240 mg DAILY PO Last administered on 10:25; Start 03/26/17 at 09:00 [place] Carbonate 150 mg QHS PO Last administered on 03/26/17 19:44; Start at 21:00; Stop 03/27/17 at 19:13; Status DC [place] Carbonate 300 mg DAILY PO Last administered on 04/06/17 10:25; Start 03/25/17 at 17:00 Potassium Chloride (Klor-Con) 10 meq DAILYWBKFT PO Last administered on 10:24; Start 03/26/17 at 08:00 Olanzapine (ZyPREXA ZYDIS) 2.5 mg PRN Q2HR PRN PO PSYCHOSIS/AGITATION Last administered on 04/05/17 14:30; Start 03/26/17 at 14:30 Vitamin D (Vitamin D3) 50,000 unit WEEKLY PO Last administered on 04/02/17 08: 04; Start 04/02/17 at 09:00 Magnesium Oxide (Magnesium Oxide) 400 mg TID PO Last administered on 04/06/17 19:54; Start 03/26/17 at 21:00 Rivaroxaban (Xarelto) 20 mg DAILYWSUP PO Last administered on 04/06/17 16:56; Start 03/27/17 at 08:00 Trazodone HCl (Desyrel) 100 mg QHS PO Last administered on 03/27/17 20:20; Start 03/26/17 at 21:00; Stop 03/28/17 at 18:59; Status DC Trazodone HCl (Desyrel) 100 mg PRN QHS PRN PO INSOMNIA; Start 03/26/17 at 21:00 ; Stop 03/28/17 at 18:59; Status DC [place] Carbonate 300 mg QHS PO Last administered on 04/03/17 19:28; Start at 21:00; Stop 04/03/17 at 19:51; Status DC Trazodone HCl (Desyrel) 150 mg PRN QHS PRN PO INSOMNIA Last administered on 02:34; Start 03/28/17 at 21:00 Trazodone HCl (Desyrel) 150 mg QHS PO Last administered on 04/06/17 19:53; Start 03/28/17 at 21:00 Risperidone (RisperDAL) 2 mg QHS PO Last administered on 04/06/17 19:54; Start 03/29/17 at 21:00 Risperidone (RisperDAL) 0.5 mg HS PO Last administered on 03/30/17 19:47; Start 03/29/17 at 21:00; Stop 03/31/17 at 18:47; Status DC Mirtazapine (Remeron) 7.5 mg QHS PO Last administered on 04/06/17 19:54; Start 03/30/17 at 21:00 Quetiapine Fumarate (SEROquel) 50 mg QHS PO Last administered on 04/01/17 19: 47; Start 03/31/17 at 21:00; Stop 04/02/17 at 09:00; Status DC Quetiapine Fumarate (SEROquel) 100 mg HS PO Last administered on 04/06/17 19: 54; Start 04/02/17 at 21:00 Clonazepam (KlonoPIN) 0.25 mg BID92 PO Last administered on 04/06/17 14:08; Start 04/01/17 at 14:00 Fluvoxamine Maleate (Luvox) 25 mg HS PO Last administered on 04/04/17 19:48; Start 04/01/17 at 21:00; Stop 04/05/17 at 17:41; Status DC Cyclosporine (Restasis) 1 drop BID OU Last administered on 04/06/17 19:52; Start 04/02/17 at 21:00 [place] Carbonate 450 mg QHS PO Last administered on 04/06/17 19:56; Start at 21:00 Fluvoxamine Maleate (Luvox) 50 mg HS PO Last administered on 04/06/17 19:54; Start 04/05/17 at 21:00 Active Scripts Active Reported Trazodone Hcl 100 Mg Tablet 1 Tab PO PRN QHS Risperdal (Risperidone) 2 Mg Tablet 1 Tab PO QHS Xarelto (Rivaroxaban) 10 Mg Tablet 20 Mg PO DAILYWSUP Metoprolol Tartrate 25 Mg Tablet 1 Tab PO BID [place] Carbonate 150 Mg Capsule 1 Cap PO HS Acetaminophen 500 Mg Tablet 1 Tab PO PRN Q6HRS [place] Carbonate 300 Mg Tablet 300 Mg PO DAILY Pantoprazole Sodium 40 Mg Tablet.dr 40 Mg PO BID Doc-Q-Lace (Docusate Sodium) 100 Mg Capsule 100 Mg PO BID Potassium Chloride 10 Meq Tablet.er 10 Meq PO DAILYWBKFT Diltiazem 24Hr ER (Diltiazem HCl) 240 Mg Tab.er.24h 240 Mg PO DAILY Atorvastatin Calcium 20 Mg Tablet 20 Mg PO QHS NOT GIVEN IN THE HOSPITAL NEXT DOSE DUE: DATE: RESTART TODAY TIME: AT BEDTIME Levothyroxine Sodium 25 Mcg Tablet 1 Tab PO DAILY07 LAST DOSE GIVEN: DATE:TODAY TIME: BEFORE BREAKFAST NEXT DOSE DUE: DATE: TOMORROW TIME: BEFORE BREAKFAST Singulair Tablet (Montelukast Sodium) 10 Mg Tablet 10 Mg PO HS NOT GIVEN IN HOSPITAL NEXT DOSE DUE: DATE: RESTART TODAY TIME: AT BEDTIME Diagnosis: Problems: (1) Anxiety disorder (2) Anxiety disorder (3) Bipolar affective disorder (4) Bipolar affective disorder (5) Impulse control disorder (6) Delusional disorder (7) Bipolar affective, mixed, sev w/ psych (8) Bipolar affective, mixed, sev w/ psych (9) Dementia, vascular, with depression (10) Dementia, vascular, with delusions EULALIA NANCE MD Apr 06, 2017 20:55
[2017-04-07] MEDS: LEVOTHYROXINE 25 MCG TABLET. PO SCH (05:39)
[2017-04-07 06:23] VITALS: BP 93/52
[2017-04-07] MEDS: POTASSIUM CHLORIDE 10 MEQ TABLET.ER. PO SCH (08:20)
[2017-04-07] MEDS: METOPROLOL TART IMMED RELEASE 25 MG TABLET PO SCH ×2 (09:00→20:08)
[2017-04-07] MEDS: DOCUSATE SODIUM 100 MG CAPSULE PO SCH ×2 (09:58→20:03)
[2017-04-07] MEDS: MAGNESIUM OXIDE 400 MG TABLET PO SCH ×3 (09:59→20:08)
[2017-04-07] MEDS: PANTOPRAZOLE 40 MG TABLET. PO SCH ×2 (09:59→20:08)
[2017-04-07] MEDS: cycloSPORINE 0.05% OPTH 1 DROP DROPERETTE OU SCH ×2 (10:00→20:03)
[2017-04-07] MEDS: LITHIUM CARBONATE 300 MG TABLET PO SCH (10:00)
[2017-04-07] MEDS: clonazePAM 0.5 MG TABLET PO SCH ×2 (10:02→14:13)
[2017-04-07] MEDS: MAGNESIUM HYDROXIDE 2,400 MG/30 ML ORAL.SUSP. PO PRN (15:27)
[2017-04-07] MEDS: RIVAROXABAN 10 MG TABLET. PO SCH (16:11)
[2017-04-07 16:13] VITALS: BP 129/81
[2017-04-07] MEDS: LITHIUM CARBONATE 150 MG CAPSULE. PO SCH (20:03)
[2017-04-07] MEDS: traZODone 100 MG TABLET. PO SCH (20:05)
[2017-04-07] MEDS: ATORVASTATIN CALCIUM 20 MG TABLET PO SCH (20:05)
[2017-04-07] MEDS: MONTELUKAST 10 MG TABLET. PO SCH (20:09)
[2017-04-07] MEDS: MIRTAZAPINE 7.5 MG TABLET. PO SCH (20:09)
[2017-04-07] MEDS: QUEtiapine 100 MG TABLET. PO SCH (20:09)
[2017-04-07] MEDS: risperiDONE 2 MG TABLET. PO SCH (20:09)
--- NOTE | 2017-04-07 20:34 | PN ---
DATE: 04/05/2017 This is a late entry for 04/05/2017 and covers elements not covered in my initial note of 04/05/217. I met with the patient the evening of 04/05/2017. The patient slept 4-1/2 hours previous evening, remains somewhat paranoid, anxious, pacing up and down in her room and in the hallway in to the day room, getting into the face of the other demented patients, somewhat suspicious. We will check her lithium level morning of 04/06/2017. REVIEW OF SYSTEMS: Positive for anxiety. She is quite obsessive, repetitive. No CV, , pulmonary, eye, ENT system symptoms on review. MENTAL STATUS EXAM: Oriented to herself and situation. Speech is coherent, rapid at times. Abstraction fair, computation impaired, language function intact, attention span short. Mood and affect still labile, but better than before. LABORATORY DATA: Reviewed. IMPRESSION: Unchanged from initial note. PLAN: Increase Luvox to 50 mg at bedtime. Continue rest of psychotropics, repeat lithium level since the prior level was 0.5 on the lower dosage and we have increased it since then. Reviewed drug interactions, risk/benefit ratio favors no further change. EULALIA NANCE MD DR: ELLIS/fernando JOB#: [id number] / [id number]
--- NOTE | 2017-04-07 20:47 | PDOC ---
Exam Dixon Demential Exam: Dixon Note: Please also refer to the separate dictated note~for this date of service dictated separately.~Patient seen individually. Discussed the patient with Nursing staff reviewed the chart.~Reviewed interim history and current functioning. Reviewed vital signs,~Labs/ Radiology~and current medications noted below. Continue current treatment with the changes noted in the dictated addendum note Assessment: Vital Signs: Vital Signs Date Time Temp Pulse Resp B/P (MAP) Pulse Ox O2 Delivery O2 Flow Rate FiO2 04/07/17 20:08 75 129/81 04/07/17 16:13 97.8 20 98 04/03/17 17:00 Room Air I&O Intake and Output 04/08/17 06:59 Intake Total 840 ml Balance 840 ml Intake Oral 840 ml Current Medications: Meds: Current Medications Acetaminophen (Tylenol) 650 mg PRN Q6HRS PRN PO PAIN / TEMP Last administered on 04/05/17 11:42; Start 03/25/17 at 16:45 Multi-Ingredient Ointment (Analgesic [place]) 1 zeus PRN QID PRN TP MUSCLE PAIN; Start 03/25/17 at 16:45 Al Hydroxide/Mg Hydroxide (Mylanta Plus Xs) 15 ml PRN AFTMEALHC PRN PO DYSPEPSIA Last administered on 04/02/17 03:58; Start 03/25/17 at 16:45 Magnesium Hydroxide (Milk Of Magnesia) 2,400 mg PRN QHS PRN PO CONSTIPATION Last administered on 04/07/17 15:27; Start 03/25/17 at 16:45 Acetaminophen (Tylenol) 500 mg PRN Q6HRS PO ; Start 03/25/17 at 16:45 Atorvastatin Calcium (Lipitor) 20 mg QHS PO Last administered on 04/07/17 20: 05; Start 03/25/17 at 21:00 Docusate Sodium (Colace) 100 mg BID PO Last administered on 04/07/17 20:03; Start 03/25/17 at 21:00 Levothyroxine Sodium (Synthroid) 25 mcg DAILY06 PO Last administered on 05:39; Start 03/26/17 at 06:00 Metoprolol Tartrate (Lopressor) 25 mg BID PO Last administered on 04/07/17 20: 08; Start 03/25/17 at 21:00 Montelukast Sodium (Singulair) 10 mg HS PO Last administered on 04/07/17 20:09 ; Start 03/25/17 at 21:00 Pantoprazole Sodium (Protonix) 40 mg BID PO Last administered on 04/07/17 20: 08; Start 03/25/17 at 21:00 Risperidone (RisperDAL) 2 mg QHS PO Last administered on 03/28/17 19:32; Start 03/25/17 at 21:00; Stop 03/29/17 at 18:25; Status DC Rivaroxaban (Xarelto) 15 mg DAILYWSUP PO Last administered on 03/25/17 20:36; Start 03/25/17 at 17:00; Stop 03/26/17 at 18:03; Status DC Trazodone HCl (Desyrel) 100 mg PRN QHS PRN PO INSOMNIA; Start 03/25/17 at 16:45 ; Stop 03/26/17 at 18:44; Status DC Diltiazem HCl (Cardizem 24hr Cd) 240 mg DAILY PO Last administered on 09:00; Start 03/26/17 at 09:00 [place] Carbonate 150 mg QHS PO Last administered on 03/26/17 19:44; Start at 21:00; Stop 03/27/17 at 19:13; Status DC [place] Carbonate 300 mg DAILY PO Last administered on 04/07/17 10:00; Start 03/25/17 at 17:00 Potassium Chloride (Klor-Con) 10 meq DAILYWBKFT PO Last administered on 08:20; Start 03/26/17 at 08:00 Olanzapine (ZyPREXA ZYDIS) 2.5 mg PRN Q2HR PRN PO PSYCHOSIS/AGITATION Last administered on 04/05/17 14:30; Start 03/26/17 at 14:30 Vitamin D (Vitamin D3) 50,000 unit WEEKLY PO Last administered on 04/02/17 08: 04; Start 04/02/17 at 09:00 Magnesium Oxide (Magnesium Oxide) 400 mg TID PO Last administered on 04/07/17 20:08; Start 03/26/17 at 21:00 Rivaroxaban (Xarelto) 20 mg DAILYWSUP PO Last administered on 04/07/17 16:11; Start 03/27/17 at 08:00 Trazodone HCl (Desyrel) 100 mg QHS PO Last administered on 03/27/17 20:20; Start 03/26/17 at 21:00; Stop 03/28/17 at 18:59; Status DC Trazodone HCl (Desyrel) 100 mg PRN QHS PRN PO INSOMNIA; Start 03/26/17 at 21:00 ; Stop 03/28/17 at 18:59; Status DC [place] Carbonate 300 mg QHS PO Last administered on 04/03/17 19:28; Start at 21:00; Stop 04/03/17 at 19:51; Status DC Trazodone HCl (Desyrel) 150 mg PRN QHS PRN PO INSOMNIA Last administered on 02:34; Start 03/28/17 at 21:00 Trazodone HCl (Desyrel) 150 mg QHS PO Last administered on 04/07/17 20:05; Start 03/28/17 at 21:00 Risperidone (RisperDAL) 2 mg QHS PO Last administered on 04/07/17 20:09; Start 03/29/17 at 21:00 Risperidone (RisperDAL) 0.5 mg HS PO Last administered on 03/30/17 19:47; Start 03/29/17 at 21:00; Stop 03/31/17 at 18:47; Status DC Mirtazapine (Remeron) 7.5 mg QHS PO Last administered on 04/07/17 20:09; Start 03/30/17 at 21:00 Quetiapine Fumarate (SEROquel) 50 mg QHS PO Last administered on 04/01/17 19: 47; Start 03/31/17 at 21:00; Stop 04/02/17 at 09:00; Status DC Quetiapine Fumarate (SEROquel) 100 mg HS PO Last administered on 04/07/17 20: 09; Start 04/02/17 at 21:00 Clonazepam (KlonoPIN) 0.25 mg BID92 PO Last administered on 04/07/17 14:13; Start 04/01/17 at 14:00 Fluvoxamine Maleate (Luvox) 25 mg HS PO Last administered on 04/04/17 19:48; Start 04/01/17 at 21:00; Stop 04/05/17 at 17:41; Status DC Cyclosporine (Restasis) 1 drop BID OU Last administered on 04/07/17 20:03; Start 04/02/17 at 21:00 [place] Carbonate 450 mg QHS PO Last administered on 04/07/17 20:03; Start at 21:00 Fluvoxamine Maleate (Luvox) 50 mg HS PO Last administered on 04/07/17 20:08; Start 04/05/17 at 21:00 Active Scripts Active Reported Trazodone Hcl 100 Mg Tablet 1 Tab PO PRN QHS Risperdal (Risperidone) 2 Mg Tablet 1 Tab PO QHS Xarelto (Rivaroxaban) 10 Mg Tablet 20 Mg PO DAILYWSUP Metoprolol Tartrate 25 Mg Tablet 1 Tab PO BID [place] Carbonate 150 Mg Capsule 1 Cap PO HS Acetaminophen 500 Mg Tablet 1 Tab PO PRN Q6HRS [place] Carbonate 300 Mg Tablet 300 Mg PO DAILY Pantoprazole Sodium 40 Mg Tablet.dr 40 Mg PO BID Doc-Q-Lace (Docusate Sodium) 100 Mg Capsule 100 Mg PO BID Potassium Chloride 10 Meq Tablet.er 10 Meq PO DAILYWBKFT Diltiazem 24Hr ER (Diltiazem HCl) 240 Mg Tab.er.24h 240 Mg PO DAILY Atorvastatin Calcium 20 Mg Tablet 20 Mg PO QHS NOT GIVEN IN THE HOSPITAL NEXT DOSE DUE: DATE: RESTART TODAY TIME: AT BEDTIME Levothyroxine Sodium 25 Mcg Tablet 1 Tab PO DAILY07 LAST DOSE GIVEN: DATE:TODAY TIME: BEFORE BREAKFAST NEXT DOSE DUE: DATE: TOMORROW TIME: BEFORE BREAKFAST Singulair Tablet (Montelukast Sodium) 10 Mg Tablet 10 Mg PO HS NOT GIVEN IN HOSPITAL NEXT DOSE DUE: DATE: RESTART TODAY TIME: AT BEDTIME Diagnosis: Problems: (1) Anxiety disorder (2) Anxiety disorder (3) Bipolar affective disorder (4) Bipolar affective disorder (5) Impulse control disorder (6) Delusional disorder (7) Bipolar affective, mixed, sev w/ psych (8) Bipolar affective, mixed, sev w/ psych (9) Dementia, vascular, with depression (10) Dementia, vascular, with delusions GOYO,MAN M MD Apr 07, 2017 20:47
--- NOTE | 2017-04-08 04:15 | PN ---
DATE: 04/06/2017 This late entry 04/06/2017 covers elements not covered in my initial note of 04/06/2017. SUBJECTIVE: I met with the patient evening of 04/06/2017. She slept 6-1/4 hours previous evening, somewhat paranoid, believes someone is at the window "he has the hussein, he has the hussein, if he calls." It is unclear who she is referring to per nursing report, perhaps her ex-, but did go out to the day room around the other patients, which in itself is an improvement. [place] level 04/06/2017 is 0.6. REVIEW OF SYSTEMS: Vague somatic symptoms, somewhat anxious, restless, up and down in a chair; less so than before. No CV, , pulmonary, eye, ENT system symptoms on review, though she complains of some high-pitched noises in her ear. MENTAL STATUS EXAM: Oriented to herself and situation. Speech is coherent, eye contact is poor. Speech rapid at times, less so than before. Abstraction fair, computation impaired, language function intact, attention span short. Mood and affect less anxious overall. No suicidal or homicidal ideation. IMPRESSION: Unchanged from initial note. PLAN: Continue current psychotropics and we are increasing the Luvox to 50 mg at bedtime for her obsessive thought processes, anxiety symptoms. Review drug interactions, risk/benefit ratio favors no further change. EULALIA NANCE MD DR: ELLIS/fernando JOB#: [id number] / [id number]
[2017-04-08] MEDS: ACETAMINOPHEN 325 MG TABLET PO PRN (04:42)
[2017-04-08] MEDS: LEVOTHYROXINE 25 MCG TABLET. PO SCH (05:02)
[2017-04-08 05:59] VITALS: BP 105/63
[2017-04-08] MEDS: POTASSIUM CHLORIDE 10 MEQ TABLET.ER. PO SCH (07:36)
[2017-04-08] MEDS: DOCUSATE SODIUM 100 MG CAPSULE PO SCH ×2 (07:36→19:17)
[2017-04-08] MEDS: LITHIUM CARBONATE 300 MG TABLET PO SCH (07:37)
[2017-04-08] MEDS: MAGNESIUM OXIDE 400 MG TABLET PO SCH ×3 (07:37→19:19)
[2017-04-08] MEDS: cycloSPORINE 0.05% OPTH 1 DROP DROPERETTE OU SCH ×2 (07:37→19:16)
[2017-04-08] MEDS: PANTOPRAZOLE 40 MG TABLET. PO SCH ×2 (07:37→19:19)
[2017-04-08] MEDS: clonazePAM 0.5 MG TABLET PO SCH ×2 (07:38→14:15)
[2017-04-08] MEDS: METOPROLOL TART IMMED RELEASE 25 MG TABLET PO SCH ×2 (07:47→19:19)
[2017-04-08 09:23] LABS: BASO % 0 % (0-3); EOS # 0.1 x10^3/uL (0.0-0.7); EOS % 1 % (0-3); HEMATOCRIT 41.2 % (36.0-47.0); HEMOGLOBIN 13.8 g/dL (12.0-15.5); LYMPH # 1.1 x10^3/uL (1.0-4.8); LYMPH % 16 % (24-48); MEAN CORPUSCULAR HEMOGLOBIN 32 pg (25-35); MEAN CORPUSCULAR HGB CONC 34 g/dL (31-37); MEAN CORPUSCULAR VOLUME 94 fL (79-100); MONO # 0.2 x10^3/uL (0.0-1.1); MONO % 4 % (0-9); NEUT # 5.7 x10^3uL (1.8-7.7); NEUT % 79 % (31-73); PLATELET COUNT 193 x10^3/uL (140-400); RED BLOOD COUNT 4.36 x10^6/uL (3.50-5.40); RED CELL DISTRIBUTION WIDTH 13.6 % (11.5-14.5); WHITE BLOOD COUNT 7.2 x10^3/uL (4.0-11.0)
[2017-04-08 09:46] LABS: ALBUMIN 3.4 g/dL (3.4-5.0); ALBUMIN/GLOBULIN RATIO 1.1 (1.0-1.7); CALCIUM 9.3 mg/dL (8.5-10.1); CREATININE 1.1 mg/dL (0.6-1.0); GFR 49.8; POTASSIUM 4.1 mmol/L (3.5-5.1); TOTAL BILIRUBIN 0.5 mg/dL (0.2-1.0); TOTAL PROTEIN 6.6 g/dL (6.4-8.2)
[2017-04-08] MEDS: MAGNESIUM HYDROXIDE 2,400 MG/30 ML ORAL.SUSP. PO PRN (11:25)
[2017-04-08 14:19] LABS: LI 0.7 mmol/L (0.6-1.2)
[2017-04-08 16:03] VITALS: BP 135/86
[2017-04-08] MEDS: RIVAROXABAN 10 MG TABLET. PO SCH (16:45)
[2017-04-08] MEDS: LITHIUM CARBONATE 150 MG CAPSULE. PO SCH (19:17)
[2017-04-08] MEDS: traZODone 100 MG TABLET. PO SCH (19:18)
[2017-04-08] MEDS: ATORVASTATIN CALCIUM 20 MG TABLET PO SCH (19:18)
[2017-04-08] MEDS: MIRTAZAPINE 7.5 MG TABLET. PO SCH (19:19)
[2017-04-08] MEDS: QUEtiapine 100 MG TABLET. PO SCH (19:20)
[2017-04-08] MEDS: risperiDONE 2 MG TABLET. PO SCH (19:20)
[2017-04-08] MEDS: MONTELUKAST 10 MG TABLET. PO SCH (19:20)
--- NOTE | 2017-04-08 20:44 | PDOC ---
Exam Dixon Demential Exam: Dixon Note: Please also refer to the separate dictated note~for this date of service dictated separately.~Patient seen individually. Discussed the patient with Nursing staff reviewed the chart.~Reviewed interim history and current functioning. Reviewed vital signs,~Labs/ Radiology~and current medications noted below. Continue current treatment with the changes noted in the dictated addendum note Assessment: Vital Signs: Vital Signs Date Time Temp Pulse Resp B/P (MAP) Pulse Ox O2 Delivery O2 Flow Rate FiO2 04/08/17 19:19 93 135/86 04/08/17 16:03 97.3 18 95 Room Air I&O Intake and Output 04/09/17 07:00 Intake Total 720 ml Balance 720 ml Intake Oral 720 ml Labs: Laboratory Tests Test 04/08/17 09:06 White Blood Count 7.2 x10^3/uL (4.0-11.0) Red Blood Count 4.36 x10^6/uL (3.50-5.40) Hemoglobin 13.8 g/dL (12.0-15.5) Hematocrit 41.2 % (36.0-47.0) Mean Corpuscular Volume 94 fL (79-100) Mean Corpuscular Hemoglobin 32 pg (25-35) Mean Corpuscular Hemoglobin Concent 34 g/dL (31-37) Red Cell Distribution Width 13.6 % (11.5-14.5) Platelet Count 193 x10^3/uL (140-400) Neutrophils (%) (Auto) 79 % (31-73) H Lymphocytes (%) (Auto) 16 % (24-48) L Monocytes (%) (Auto) 4 % (0-9) Eosinophils (%) (Auto) 1 % (0-3) Basophils (%) (Auto) 0 % (0-3) Neutrophils # (Auto) 5.7 x10^3uL (1.8-7.7) Lymphocytes # (Auto) 1.1 x10^3/uL (1.0-4.8) Monocytes # (Auto) 0.2 x10^3/uL (0.0-1.1) Eosinophils # (Auto) 0.1 x10^3/uL (0.0-0.7) Basophils # (Auto) 0.0 x10^3/uL (0.0-0.2) Sodium Level 142 mmol/L (136-145) Potassium Level 4.1 mmol/L (3.5-5.1) Chloride Level 106 mmol/L (98-107) Carbon Dioxide Level 28 mmol/L (21-32) Anion Gap 8 (6-14) Blood Urea Nitrogen 10 mg/dL (7-20) Creatinine 1.1 mg/dL (0.6-1.0) H Estimated GFR (Cockcroft-Gault) 49.8 BUN/Creatinine Ratio 9 (6-20) Glucose Level 146 mg/dL (70-99) H Calcium Level 9.3 mg/dL (8.5-10.1) Total Bilirubin 0.5 mg/dL (0.2-1.0) Aspartate Amino Transferase (AST) 20 U/L (15-37) Alanine Aminotransferase (ALT) 32 U/L (14-59) Alkaline Phosphatase 86 U/L (46-116) Total Protein 6.6 g/dL (6.4-8.2) Albumin 3.4 g/dL (3.4-5.0) Albumin/Globulin Ratio 1.1 (1.0-1.7) [place] Level 0.7 mmol/L (0.6-1.2) [place] Last Dose Date 04/07/17 [place] Last Dose Time 2100 Current Medications: Meds: Current Medications Acetaminophen (Tylenol) 650 mg PRN Q6HRS PRN PO PAIN / TEMP Last administered on 04/08/17 04:42; Start 03/25/17 at 16:45 Multi-Ingredient Ointment (Analgesic [place]) 1 zeus PRN QID PRN TP MUSCLE PAIN; Start 03/25/17 at 16:45 Al Hydroxide/Mg Hydroxide (Mylanta Plus Xs) 15 ml PRN AFTMEALHC PRN PO DYSPEPSIA Last administered on 04/02/17 03:58; Start 03/25/17 at 16:45 Magnesium Hydroxide (Milk Of Magnesia) 2,400 mg PRN QHS PRN PO CONSTIPATION Last administered on 04/08/17 11:25; Start 03/25/17 at 16:45 Acetaminophen (Tylenol) 500 mg PRN Q6HRS PO ; Start 03/25/17 at 16:45 Atorvastatin Calcium (Lipitor) 20 mg QHS PO Last administered on 04/08/17 19: 18; Start 03/25/17 at 21:00 Docusate Sodium (Colace) 100 mg BID PO Last administered on 04/08/17 19:17; Start 03/25/17 at 21:00 Levothyroxine Sodium (Synthroid) 25 mcg DAILY06 PO Last administered on 05:02; Start 03/26/17 at 06:00 Metoprolol Tartrate (Lopressor) 25 mg BID PO Last administered on 04/08/17 19: 19; Start 03/25/17 at 21:00 Montelukast Sodium (Singulair) 10 mg HS PO Last administered on 04/08/17 19:20 ; Start 03/25/17 at 21:00 Pantoprazole Sodium (Protonix) 40 mg BID PO Last administered on 04/08/17 19: 19; Start 03/25/17 at 21:00 Risperidone (RisperDAL) 2 mg QHS PO Last administered on 03/28/17 19:32; Start 03/25/17 at 21:00; Stop 03/29/17 at 18:25; Status DC Rivaroxaban (Xarelto) 15 mg DAILYWSUP PO Last administered on 03/25/17 20:36; Start 03/25/17 at 17:00; Stop 03/26/17 at 18:03; Status DC Trazodone HCl (Desyrel) 100 mg PRN QHS PRN PO INSOMNIA; Start 03/25/17 at 16:45 ; Stop 03/26/17 at 18:44; Status DC Diltiazem HCl (Cardizem 24hr Cd) 240 mg DAILY PO Last administered on 07:47; Start 03/26/17 at 09:00 [place] Carbonate 150 mg QHS PO Last administered on 03/26/17 19:44; Start at 21:00; Stop 03/27/17 at 19:13; Status DC [place] Carbonate 300 mg DAILY PO Last administered on 04/08/17 07:37; Start 03/25/17 at 17:00 Potassium Chloride (Klor-Con) 10 meq DAILYWBKFT PO Last administered on 07:36; Start 03/26/17 at 08:00 Olanzapine (ZyPREXA ZYDIS) 2.5 mg PRN Q2HR PRN PO PSYCHOSIS/AGITATION Last administered on 04/05/17 14:30; Start 03/26/17 at 14:30 Vitamin D (Vitamin D3) 50,000 unit WEEKLY PO Last administered on 04/02/17 08: 04; Start 04/02/17 at 09:00 Magnesium Oxide (Magnesium Oxide) 400 mg TID PO Last administered on 04/08/17 19:19; Start 03/26/17 at 21:00 Rivaroxaban (Xarelto) 20 mg DAILYWSUP PO Last administered on 04/08/17 16:45; Start 03/27/17 at 08:00 Trazodone HCl (Desyrel) 100 mg QHS PO Last administered on 03/27/17 20:20; Start 03/26/17 at 21:00; Stop 03/28/17 at 18:59; Status DC Trazodone HCl (Desyrel) 100 mg PRN QHS PRN PO INSOMNIA; Start 03/26/17 at 21:00 ; Stop 03/28/17 at 18:59; Status DC [place] Carbonate 300 mg QHS PO Last administered on 04/03/17 19:28; Start at 21:00; Stop 04/03/17 at 19:51; Status DC Trazodone HCl (Desyrel) 150 mg PRN QHS PRN PO INSOMNIA Last administered on 02:34; Start 03/28/17 at 21:00 Trazodone HCl (Desyrel) 150 mg QHS PO Last administered on 04/08/17 19:18; Start 03/28/17 at 21:00 Risperidone (RisperDAL) 2 mg QHS PO Last administered on 04/08/17 19:20; Start 03/29/17 at 21:00 Risperidone (RisperDAL) 0.5 mg HS PO Last administered on 03/30/17 19:47; Start 03/29/17 at 21:00; Stop 03/31/17 at 18:47; Status DC Mirtazapine (Remeron) 7.5 mg QHS PO Last administered on 04/08/17 19:19; Start 03/30/17 at 21:00 Quetiapine Fumarate (SEROquel) 50 mg QHS PO Last administered on 04/01/17 19: 47; Start 03/31/17 at 21:00; Stop 04/02/17 at 09:00; Status DC Quetiapine Fumarate (SEROquel) 100 mg HS PO Last administered on 04/08/17 19: 20; Start 04/02/17 at 21:00 Clonazepam (KlonoPIN) 0.25 mg BID92 PO Last administered on 04/08/17 14:15; Start 04/01/17 at 14:00 Fluvoxamine Maleate (Luvox) 25 mg HS PO Last administered on 04/04/17 19:48; Start 04/01/17 at 21:00; Stop 04/05/17 at 17:41; Status DC Cyclosporine (Restasis) 1 drop BID OU Last administered on 04/08/17 19:16; Start 04/02/17 at 21:00 [place] Carbonate 450 mg QHS PO Last administered on 04/08/17 19:17; Start at 21:00 Fluvoxamine Maleate (Luvox) 50 mg HS PO Last administered on 04/08/17 19:19; Start 04/05/17 at 21:00 Active Scripts Active Reported Trazodone Hcl 100 Mg Tablet 1 Tab PO PRN QHS Risperdal (Risperidone) 2 Mg Tablet 1 Tab PO QHS Xarelto (Rivaroxaban) 10 Mg Tablet 20 Mg PO DAILYWSUP Metoprolol Tartrate 25 Mg Tablet 1 Tab PO BID [place] Carbonate 150 Mg Capsule 1 Cap PO HS Acetaminophen 500 Mg Tablet 1 Tab PO PRN Q6HRS [place] Carbonate 300 Mg Tablet 300 Mg PO DAILY Pantoprazole Sodium 40 Mg Tablet.dr 40 Mg PO BID Doc-Q-Lace (Docusate Sodium) 100 Mg Capsule 100 Mg PO BID Potassium Chloride 10 Meq Tablet.er 10 Meq PO DAILYWBKFT Diltiazem 24Hr ER (Diltiazem HCl) 240 Mg Tab.er.24h 240 Mg PO DAILY Atorvastatin Calcium 20 Mg Tablet 20 Mg PO QHS NOT GIVEN IN THE HOSPITAL NEXT DOSE DUE: DATE: RESTART TODAY TIME: AT BEDTIME Levothyroxine Sodium 25 Mcg Tablet 1 Tab PO DAILY07 LAST DOSE GIVEN: DATE:TODAY TIME: BEFORE BREAKFAST NEXT DOSE DUE: DATE: TOMORROW TIME: BEFORE BREAKFAST Singulair Tablet (Montelukast Sodium) 10 Mg Tablet 10 Mg PO HS NOT GIVEN IN HOSPITAL NEXT DOSE DUE: DATE: RESTART TODAY TIME: AT BEDTIME Diagnosis: Problems: (1) Anxiety disorder (2) Anxiety disorder (3) Bipolar affective disorder (4) Bipolar affective disorder (5) Impulse control disorder (6) Delusional disorder (7) Bipolar affective, mixed, sev w/ psych (8) Bipolar affective, mixed, sev w/ psych (9) Dementia, vascular, with depression (10) Dementia, vascular, with delusions EULALIA NANCE MD Apr 08, 2017 20:44
[2017-04-09] MEDS: traZODone 100 MG TABLET. PO PRN ×2 (02:42→21:11)
[2017-04-09] MEDS: LEVOTHYROXINE 25 MCG TABLET. PO SCH (05:59)
[2017-04-09 06:14] VITALS: BP 136/67
--- NOTE | 2017-04-09 06:56 | PN ---
DATE: 04/07/2017 This late entry for 04/07/2017 covers elements not covered in my initial note of 04/07/2017. SUBJECTIVE: I met with the patient in the evening of 04/07/2017. The patient slept reasonably well, remains somewhat paranoid, constantly questioning herself that she can shower, how would she live by herself at her home, complains of some nausea, has been somewhat paranoid at times. Slept 6-1/4 hours. REVIEW OF SYSTEMS: Positive for her constipation, anxiety, up and down from the bed as I sat with her in her room. No CV, , pulmonary, eye system symptoms on review. MENTAL STATUS EXAM: Oriented to herself and situation. Speech is coherent, often responses monosyllabic. Abstraction fair, computation impaired, language function intact. Attention span short, somewhat paranoid. LABORATORY DATA: Reviewed. No suicidal or homicidal ideation. IMPRESSION: Unchanged from initial note. PLAN: Check CBC, CMP, lithium level morning of 04/08/2017. Continue current psychotropics. Reviewed drug interactions. Adjust further as clinically indicated. MAN Chantell NANCE MD DR: ELLIS/fernando JOB#: [id number] / [id number]
[2017-04-09] MEDS: POTASSIUM CHLORIDE 10 MEQ TABLET.ER. PO SCH (07:59)
[2017-04-09] MEDS: cycloSPORINE 0.05% OPTH 1 DROP DROPERETTE OU SCH ×2 (07:59→20:20)
[2017-04-09] MEDS: LITHIUM CARBONATE 300 MG TABLET PO SCH (08:00)
[2017-04-09] MEDS: CHOLECALCIFEROL (VITAMIN D3) 50,000 UNIT CAPSULE PO SCH (08:00)
[2017-04-09] MEDS: METOPROLOL TART IMMED RELEASE 25 MG TABLET PO SCH ×2 (08:00→20:20)
[2017-04-09] MEDS: PANTOPRAZOLE 40 MG TABLET. PO SCH ×2 (08:00→20:19)
[2017-04-09] MEDS: DOCUSATE SODIUM 100 MG CAPSULE PO SCH ×2 (08:00→20:19)
[2017-04-09] MEDS: MAGNESIUM OXIDE 400 MG TABLET PO SCH ×3 (08:01→20:18)
[2017-04-09] MEDS: clonazePAM 0.5 MG TABLET PO SCH ×2 (08:02→14:15)
[2017-04-09 16:22] VITALS: BP 94/54
[2017-04-09] MEDS: RIVAROXABAN 10 MG TABLET. PO SCH (18:03)
[2017-04-09] MEDS: ATORVASTATIN CALCIUM 20 MG TABLET PO SCH (20:18)
[2017-04-09] MEDS: traZODone 100 MG TABLET. PO SCH (20:18)
[2017-04-09] MEDS: MIRTAZAPINE 7.5 MG TABLET. PO SCH (20:19)
[2017-04-09] MEDS: MONTELUKAST 10 MG TABLET. PO SCH (20:19)
[2017-04-09] MEDS: risperiDONE 2 MG TABLET. PO SCH (20:19)
[2017-04-09] MEDS: QUEtiapine 100 MG TABLET. PO SCH (20:19)
[2017-04-09] MEDS: LITHIUM CARBONATE 150 MG CAPSULE. PO SCH (20:20)
--- NOTE | 2017-04-09 22:14 | PDOC ---
Exam Dixon Demential Exam: Dixon Note: Please also refer to the separate dictated note~for this date of service dictated separately.~Patient seen individually. Discussed the patient with Nursing staff reviewed the chart.~Reviewed interim history and current functioning. Reviewed vital signs,~Labs/ Radiology~and current medications noted below. Continue current treatment with the changes noted in the dictated addendum note Assessment: Vital Signs: Vital Signs Date Time Temp Pulse Resp B/P (MAP) Pulse Ox O2 Delivery O2 Flow Rate FiO2 04/09/17 20:20 73 94/54 04/09/17 16:22 98.5 16 97 04/08/17 16:03 Room Air I&O Intake and Output 04/10/17 07:00 Intake Total 1300 ml Balance 1300 ml Intake Oral 1300 ml Current Medications: Meds: Current Medications Acetaminophen (Tylenol) 650 mg PRN Q6HRS PRN PO PAIN / TEMP Last administered on 04/08/17 04:42; Start 03/25/17 at 16:45 Multi-Ingredient Ointment (Analgesic [place]) 1 zeus PRN QID PRN TP MUSCLE PAIN; Start 03/25/17 at 16:45 Al Hydroxide/Mg Hydroxide (Mylanta Plus Xs) 15 ml PRN AFTMEALHC PRN PO DYSPEPSIA Last administered on 04/02/17 03:58; Start 03/25/17 at 16:45 Magnesium Hydroxide (Milk Of Magnesia) 2,400 mg PRN QHS PRN PO CONSTIPATION Last administered on 04/08/17 11:25; Start 03/25/17 at 16:45 Acetaminophen (Tylenol) 500 mg PRN Q6HRS PO ; Start 03/25/17 at 16:45 Atorvastatin Calcium (Lipitor) 20 mg QHS PO Last administered on 04/09/17 20: 18; Start 03/25/17 at 21:00 Docusate Sodium (Colace) 100 mg BID PO Last administered on 04/09/17 20:19; Start 03/25/17 at 21:00 Levothyroxine Sodium (Synthroid) 25 mcg DAILY06 PO Last administered on 05:59; Start 03/26/17 at 06:00 Metoprolol Tartrate (Lopressor) 25 mg BID PO Last administered on 04/09/17 08: 00; Start 03/25/17 at 21:00 Montelukast Sodium (Singulair) 10 mg HS PO Last administered on 04/09/17 20:19 ; Start 03/25/17 at 21:00 Pantoprazole Sodium (Protonix) 40 mg BID PO Last administered on 04/09/17 20: 19; Start 03/25/17 at 21:00 Risperidone (RisperDAL) 2 mg QHS PO Last administered on 03/28/17 19:32; Start 03/25/17 at 21:00; Stop 03/29/17 at 18:25; Status DC Rivaroxaban (Xarelto) 15 mg DAILYWSUP PO Last administered on 03/25/17 20:36; Start 03/25/17 at 17:00; Stop 03/26/17 at 18:03; Status DC Trazodone HCl (Desyrel) 100 mg PRN QHS PRN PO INSOMNIA; Start 03/25/17 at 16:45 ; Stop 03/26/17 at 18:44; Status DC Diltiazem HCl (Cardizem 24hr Cd) 240 mg DAILY PO Last administered on 08:00; Start 03/26/17 at 09:00 [place] Carbonate 150 mg QHS PO Last administered on 03/26/17 19:44; Start at 21:00; Stop 03/27/17 at 19:13; Status DC [place] Carbonate 300 mg DAILY PO Last administered on 04/09/17 08:00; Start 03/25/17 at 17:00 Potassium Chloride (Klor-Con) 10 meq DAILYWBKFT PO Last administered on 07:59; Start 03/26/17 at 08:00 Olanzapine (ZyPREXA ZYDIS) 2.5 mg PRN Q2HR PRN PO PSYCHOSIS/AGITATION Last administered on 04/09/17 21:09; Start 03/26/17 at 14:30 Vitamin D (Vitamin D3) 50,000 unit WEEKLY PO Last administered on 04/09/17 08: 00; Start 04/02/17 at 09:00 Magnesium Oxide (Magnesium Oxide) 400 mg TID PO Last administered on 04/09/17 20:18; Start 03/26/17 at 21:00 Rivaroxaban (Xarelto) 20 mg DAILYWSUP PO Last administered on 04/09/17 18:03; Start 03/27/17 at 08:00 Trazodone HCl (Desyrel) 100 mg QHS PO Last administered on 03/27/17 20:20; Start 03/26/17 at 21:00; Stop 03/28/17 at 18:59; Status DC Trazodone HCl (Desyrel) 100 mg PRN QHS PRN PO INSOMNIA; Start 03/26/17 at 21:00 ; Stop 03/28/17 at 18:59; Status DC [place] Carbonate 300 mg QHS PO Last administered on 04/03/17 19:28; Start at 21:00; Stop 04/03/17 at 19:51; Status DC Trazodone HCl (Desyrel) 150 mg PRN QHS PRN PO INSOMNIA Last administered on 21:11; Start 03/28/17 at 21:00 Trazodone HCl (Desyrel) 150 mg QHS PO Last administered on 04/09/17 20:18; Start 03/28/17 at 21:00 Risperidone (RisperDAL) 2 mg QHS PO Last administered on 04/09/17 20:19; Start 03/29/17 at 21:00 Risperidone (RisperDAL) 0.5 mg HS PO Last administered on 03/30/17 19:47; Start 03/29/17 at 21:00; Stop 03/31/17 at 18:47; Status DC Mirtazapine (Remeron) 7.5 mg QHS PO Last administered on 04/09/17 20:19; Start 03/30/17 at 21:00 Quetiapine Fumarate (SEROquel) 50 mg QHS PO Last administered on 04/01/17 19: 47; Start 03/31/17 at 21:00; Stop 04/02/17 at 09:00; Status DC Quetiapine Fumarate (SEROquel) 100 mg HS PO Last administered on 04/09/17 20: 19; Start 04/02/17 at 21:00 Clonazepam (KlonoPIN) 0.25 mg BID92 PO Last administered on 04/09/17 14:15; Start 04/01/17 at 14:00 Fluvoxamine Maleate (Luvox) 25 mg HS PO Last administered on 04/04/17 19:48; Start 04/01/17 at 21:00; Stop 04/05/17 at 17:41; Status DC Cyclosporine (Restasis) 1 drop BID OU Last administered on 04/09/17 20:20; Start 04/02/17 at 21:00 [place] Carbonate 450 mg QHS PO Last administered on 04/09/17 20:20; Start at 21:00 Fluvoxamine Maleate (Luvox) 50 mg HS PO Last administered on 04/09/17 20:19; Start 04/05/17 at 21:00 Active Scripts Active Reported Trazodone Hcl 100 Mg Tablet 1 Tab PO PRN QHS Risperdal (Risperidone) 2 Mg Tablet 1 Tab PO QHS Xarelto (Rivaroxaban) 10 Mg Tablet 20 Mg PO DAILYWSUP Metoprolol Tartrate 25 Mg Tablet 1 Tab PO BID [place] Carbonate 150 Mg Capsule 1 Cap PO HS Acetaminophen 500 Mg Tablet 1 Tab PO PRN Q6HRS [place] Carbonate 300 Mg Tablet 300 Mg PO DAILY Pantoprazole Sodium 40 Mg Tablet.dr 40 Mg PO BID Doc-Q-Lace (Docusate Sodium) 100 Mg Capsule 100 Mg PO BID Potassium Chloride 10 Meq Tablet.er 10 Meq PO DAILYWBKFT Diltiazem 24Hr ER (Diltiazem HCl) 240 Mg Tab.er.24h 240 Mg PO DAILY Atorvastatin Calcium 20 Mg Tablet 20 Mg PO QHS NOT GIVEN IN THE HOSPITAL NEXT DOSE DUE: DATE: RESTART TODAY TIME: AT BEDTIME Levothyroxine Sodium 25 Mcg Tablet 1 Tab PO DAILY07 LAST DOSE GIVEN: DATE:TODAY TIME: BEFORE BREAKFAST NEXT DOSE DUE: DATE: TOMORROW TIME: BEFORE BREAKFAST Singulair Tablet (Montelukast Sodium) 10 Mg Tablet 10 Mg PO HS NOT GIVEN IN HOSPITAL NEXT DOSE DUE: DATE: RESTART TODAY TIME: AT BEDTIME Diagnosis: Problems: (1) Anxiety disorder (2) Anxiety disorder (3) Bipolar affective disorder (4) Bipolar affective disorder (5) Impulse control disorder (6) Delusional disorder (7) Bipolar affective, mixed, sev w/ psych (8) Bipolar affective, mixed, sev w/ psych (9) Dementia, vascular, with depression (10) Dementia, vascular, with delusions GOYO,MAN M MD Apr 09, 2017 22:14
--- NOTE | 2017-04-10 04:04 | PN ---
DATE: 04/08/2017 PSYCHIATRIC PROGRESS NOTE This late entry of 04/08/2017 covers elements not covered in my initial note of 04/08/2017. SUBJECTIVE: The patient was staffed at a treatment team meeting with the entire team morning of 04/08/2017, seen individually evening of 04/08/2017, slept 6-1/2 hours, constantly questioning herself "I lied. I don't tell the truth." She is somewhat paranoid, restless, anxious, up and down from a chair as I sat with her in her room. [place] level is 0.7. REVIEW OF SYSTEMS: Positive for the anxiety. No CV, , pulmonary, eye, ENT system symptoms on review. MENTAL STATUS EXAM: Oriented to herself and situation. Speech is coherent, often responses monosyllabic, up and down to the nursing station where I was seated after vested with her. Abstraction fair, computation impaired, language function intact, attention span short. Mood and affect remain somewhat anxious, labile, obsessive. LABORATORY DATA: Reviewed. IMPRESSION: Unchanged from initial note. PLAN: Continue current psychotropics, Luvox was increased. We may need to increase it further. Reviewed drug interactions. Risk/benefit ratio favors no further change. EULALIA NANCE MD DR: ELLIS/fernando JOB#: [id number] / [id number]
[2017-04-10] MEDS: LEVOTHYROXINE 25 MCG TABLET. PO SCH (05:03)
[2017-04-10 06:05] VITALS: BP 115/83
[2017-04-10] MEDS: MAGNESIUM OXIDE 400 MG TABLET PO SCH ×3 (07:53→20:09)
[2017-04-10] MEDS: METOPROLOL TART IMMED RELEASE 25 MG TABLET PO SCH ×2 (07:53→20:09)
[2017-04-10] MEDS: DOCUSATE SODIUM 100 MG CAPSULE PO SCH ×2 (07:53→20:09)
[2017-04-10] MEDS: PANTOPRAZOLE 40 MG TABLET. PO SCH ×2 (07:53→20:09)
[2017-04-10] MEDS: LITHIUM CARBONATE 300 MG TABLET PO SCH (07:54)
[2017-04-10] MEDS: POTASSIUM CHLORIDE 10 MEQ TABLET.ER. PO SCH (07:54)
[2017-04-10] MEDS: cycloSPORINE 0.05% OPTH 1 DROP DROPERETTE OU SCH ×2 (07:57→20:10)
[2017-04-10] MEDS: clonazePAM 0.5 MG TABLET PO SCH ×2 (07:57→13:20)
[2017-04-10 17:05] VITALS: BP 108/75
[2017-04-10] MEDS: RIVAROXABAN 10 MG TABLET. PO SCH (18:14)
[2017-04-10] MEDS: METHYL SALICYLATE/MENTHOL TOPICAL OINTMENT 29GM TUBE. TP PRN (18:17)
[2017-04-10] MEDS ORDERED: ZOLPIDEM 5 MG TABLET. PO PRN (20:00)
[2017-04-10] MEDS: LITHIUM CARBONATE 150 MG CAPSULE. PO SCH (20:08)
[2017-04-10] MEDS: risperiDONE 2 MG TABLET. PO SCH (20:09)
[2017-04-10] MEDS: ATORVASTATIN CALCIUM 20 MG TABLET PO SCH (20:09)
[2017-04-10] MEDS: MIRTAZAPINE 7.5 MG TABLET. PO SCH (20:09)
[2017-04-10] MEDS: traZODone 100 MG TABLET. PO SCH (20:10)
[2017-04-10] MEDS: MONTELUKAST 10 MG TABLET. PO SCH (20:11)
[2017-04-10] MEDS: QUEtiapine 100 MG TABLET. PO SCH (20:11)
--- NOTE | 2017-04-10 23:02 | PDOC ---
Exam Dixon Demential Exam: Dixon Note: Please also refer to the separate dictated note~for this date of service dictated separately.~Patient seen individually. Discussed the patient with Nursing staff reviewed the chart.~Reviewed interim history and current functioning. Reviewed vital signs,~Labs/ Radiology~and current medications noted below. Continue current treatment with the changes noted in the dictated addendum note Assessment: Vital Signs: Vital Signs Date Time Temp Pulse Resp B/P (MAP) Pulse Ox O2 Delivery O2 Flow Rate FiO2 04/10/17 20:09 65 108/75 04/10/17 17:05 98.1 18 97 04/08/17 16:03 Room Air I&O Intake and Output 04/11/17 07:00 Intake Total 1420 ml Balance 1420 ml Intake Oral 1420 ml Current Medications: Meds: Current Medications Acetaminophen (Tylenol) 650 mg PRN Q6HRS PRN PO PAIN / TEMP Last administered on 04/08/17 04:42; Start 03/25/17 at 16:45 Multi-Ingredient Ointment (Analgesic [place]) 1 zeus PRN QID PRN TP MUSCLE PAIN Last administered on 04/10/17 18:17; Start 03/25/17 at 16:45 Al Hydroxide/Mg Hydroxide (Mylanta Plus Xs) 15 ml PRN AFTMEALHC PRN PO DYSPEPSIA Last administered on 04/02/17 03:58; Start 03/25/17 at 16:45 Magnesium Hydroxide (Milk Of Magnesia) 2,400 mg PRN QHS PRN PO CONSTIPATION Last administered on 04/08/17 11:25; Start 03/25/17 at 16:45 Acetaminophen (Tylenol) 500 mg PRN Q6HRS PO ; Start 03/25/17 at 16:45 Atorvastatin Calcium (Lipitor) 20 mg QHS PO Last administered on 04/10/17 20: 09; Start 03/25/17 at 21:00 Docusate Sodium (Colace) 100 mg BID PO Last administered on 04/10/17 20:09; Start 03/25/17 at 21:00 Levothyroxine Sodium (Synthroid) 25 mcg DAILY06 PO Last administered on 05:03; Start 03/26/17 at 06:00 Metoprolol Tartrate (Lopressor) 25 mg BID PO Last administered on 04/10/17 20: 09; Start 03/25/17 at 21:00 Montelukast Sodium (Singulair) 10 mg HS PO Last administered on 04/10/17 20:11 ; Start 03/25/17 at 21:00 Pantoprazole Sodium (Protonix) 40 mg BID PO Last administered on 04/10/17 20: 09; Start 03/25/17 at 21:00 Risperidone (RisperDAL) 2 mg QHS PO Last administered on 03/28/17 19:32; Start 03/25/17 at 21:00; Stop 03/29/17 at 18:25; Status DC Rivaroxaban (Xarelto) 15 mg DAILYWSUP PO Last administered on 03/25/17 20:36; Start 03/25/17 at 17:00; Stop 03/26/17 at 18:03; Status DC Trazodone HCl (Desyrel) 100 mg PRN QHS PRN PO INSOMNIA; Start 03/25/17 at 16:45 ; Stop 03/26/17 at 18:44; Status DC Diltiazem HCl (Cardizem 24hr Cd) 240 mg DAILY PO Last administered on 07:54; Start 03/26/17 at 09:00 [place] Carbonate 150 mg QHS PO Last administered on 03/26/17 19:44; Start at 21:00; Stop 03/27/17 at 19:13; Status DC [place] Carbonate 300 mg DAILY PO Last administered on 04/10/17 07:54; Start 03/25/17 at 17:00 Potassium Chloride (Klor-Con) 10 meq DAILYWBKFT PO Last administered on 07:54; Start 03/26/17 at 08:00 Olanzapine (ZyPREXA ZYDIS) 2.5 mg PRN Q2HR PRN PO PSYCHOSIS/AGITATION Last administered on 04/09/17 21:09; Start 03/26/17 at 14:30 Vitamin D (Vitamin D3) 50,000 unit WEEKLY PO Last administered on 04/09/17 08: 00; Start 04/02/17 at 09:00 Magnesium Oxide (Magnesium Oxide) 400 mg TID PO Last administered on 04/10/17 20:09; Start 03/26/17 at 21:00 Rivaroxaban (Xarelto) 20 mg DAILYWSUP PO Last administered on 04/10/17 18:14; Start 03/27/17 at 08:00 Trazodone HCl (Desyrel) 100 mg QHS PO Last administered on 03/27/17 20:20; Start 03/26/17 at 21:00; Stop 03/28/17 at 18:59; Status DC Trazodone HCl (Desyrel) 100 mg PRN QHS PRN PO INSOMNIA; Start 03/26/17 at 21:00 ; Stop 03/28/17 at 18:59; Status DC [place] Carbonate 300 mg QHS PO Last administered on 04/03/17 19:28; Start at 21:00; Stop 04/03/17 at 19:51; Status DC Trazodone HCl (Desyrel) 150 mg PRN QHS PRN PO INSOMNIA Last administered on 21:11; Start 03/28/17 at 21:00 Trazodone HCl (Desyrel) 150 mg QHS PO Last administered on 04/10/17 20:10; Start 03/28/17 at 21:00 Risperidone (RisperDAL) 2 mg QHS PO Last administered on 04/10/17 20:09; Start 03/29/17 at 21:00 Risperidone (RisperDAL) 0.5 mg HS PO Last administered on 03/30/17 19:47; Start 03/29/17 at 21:00; Stop 03/31/17 at 18:47; Status DC Mirtazapine (Remeron) 7.5 mg QHS PO Last administered on 04/10/17 20:09; Start 03/30/17 at 21:00 Quetiapine Fumarate (SEROquel) 50 mg QHS PO Last administered on 04/01/17 19: 47; Start 03/31/17 at 21:00; Stop 04/02/17 at 09:00; Status DC Quetiapine Fumarate (SEROquel) 100 mg HS PO Last administered on 04/10/17 20: 11; Start 04/02/17 at 21:00 Clonazepam (KlonoPIN) 0.25 mg BID92 PO Last administered on 04/10/17 13:20; Start 04/01/17 at 14:00 Fluvoxamine Maleate (Luvox) 25 mg HS PO Last administered on 04/04/17 19:48; Start 04/01/17 at 21:00; Stop 04/05/17 at 17:41; Status DC Cyclosporine (Restasis) 1 drop BID OU Last administered on 04/10/17 20:10; Start 04/02/17 at 21:00 [place] Carbonate 450 mg QHS PO Last administered on 04/10/17 20:08; Start at 21:00 Fluvoxamine Maleate (Luvox) 50 mg HS PO Last administered on 04/10/17 20:08; Start 04/05/17 at 21:00 Zolpidem Tartrate (Ambien) 5 mg PRN QHS PRN PO INSOMNIA; Start 04/10/17 at 20: 00 Active Scripts Active Reported Trazodone Hcl 100 Mg Tablet 1 Tab PO PRN QHS Risperdal (Risperidone) 2 Mg Tablet 1 Tab PO QHS Xarelto (Rivaroxaban) 10 Mg Tablet 20 Mg PO DAILYWSUP Metoprolol Tartrate 25 Mg Tablet 1 Tab PO BID [place] Carbonate 150 Mg Capsule 1 Cap PO HS Acetaminophen 500 Mg Tablet 1 Tab PO PRN Q6HRS [place] Carbonate 300 Mg Tablet 300 Mg PO DAILY Pantoprazole Sodium 40 Mg Tablet.dr 40 Mg PO BID Doc-Q-Lace (Docusate Sodium) 100 Mg Capsule 100 Mg PO BID Potassium Chloride 10 Meq Tablet.er 10 Meq PO DAILYWBKFT Diltiazem 24Hr ER (Diltiazem HCl) 240 Mg Tab.er.24h 240 Mg PO DAILY Atorvastatin Calcium 20 Mg Tablet 20 Mg PO QHS NOT GIVEN IN THE HOSPITAL NEXT DOSE DUE: DATE: RESTART TODAY TIME: AT BEDTIME Levothyroxine Sodium 25 Mcg Tablet 1 Tab PO DAILY07 LAST DOSE GIVEN: DATE:TODAY TIME: BEFORE BREAKFAST NEXT DOSE DUE: DATE: TOMORROW TIME: BEFORE BREAKFAST Singulair Tablet (Montelukast Sodium) 10 Mg Tablet 10 Mg PO HS NOT GIVEN IN HOSPITAL NEXT DOSE DUE: DATE: RESTART TODAY TIME: AT BEDTIME Diagnosis: Problems: (1) Anxiety disorder (2) Anxiety disorder (3) Bipolar affective disorder (4) Bipolar affective disorder (5) Impulse control disorder (6) Delusional disorder (7) Bipolar affective, mixed, sev w/ psych (8) Bipolar affective, mixed, sev w/ psych (9) Dementia, vascular, with depression (10) Dementia, vascular, with delusions EULALIA NANCE MD Apr 10, 2017 23:02
--- NOTE | 2017-04-11 00:27 | PN ---
DATE: 04/09/2017 This is a late entry for 04/09/2017 and covers elements not covered in my initial note of 04/09/2017. I met with the patient the evening of 04/09/2017, the patient slept reasonably well previous evening per nursing report but she does not think she slept much at night, remains anxious, trazodone was repeated and she received Zyprexa Zydis as well at night. She is a little more withdrawn on 04/09/2017, in her bed, less anxious, but has difficulty accepting this. REVIEW OF SYSTEMS: Vague somatic symptoms. No CV, , pulmonary, eye, ENT system symptoms on review. MENTAL STATUS EXAM: Oriented to herself and situation. Speech, often responses monosyllabic. Abstraction fair, computation impaired, language function intact, somewhat anxious, paranoid, but less so than before. No suicidal or homicidal ideation. LABORATORY DATA: Reviewed. IMPRESSION: Unchanged from initial note. PLAN: Continue current psychotropics. [place] level was repeated on 04/08/2017 with CBC and CMP and is remarkable and therapeutic. Reviewed drug interactions, risk/benefit ratio favors no further. MAN Chantell NANCE MD DR: ELLIS/fernando JOB#: [id number] / [id number]
[2017-04-11] MEDS: LEVOTHYROXINE 25 MCG TABLET. PO SCH (06:05)
[2017-04-11 06:06] VITALS: BP 122/61
[2017-04-11] MEDS: ACETAMINOPHEN 325 MG TABLET PO PRN (06:10)
[2017-04-11] MEDS: METHYL SALICYLATE/MENTHOL TOPICAL OINTMENT 29GM TUBE. TP PRN (06:10)
[2017-04-11] MEDS: cycloSPORINE 0.05% OPTH 1 DROP DROPERETTE OU SCH ×2 (08:53→20:29)
[2017-04-11] MEDS: LITHIUM CARBONATE 300 MG TABLET PO SCH (08:55)
[2017-04-11] MEDS: DOCUSATE SODIUM 100 MG CAPSULE PO SCH ×2 (08:55→20:31)
[2017-04-11] MEDS: POTASSIUM CHLORIDE 10 MEQ TABLET.ER. PO SCH (08:55)
[2017-04-11] MEDS: PANTOPRAZOLE 40 MG TABLET. PO SCH ×2 (08:56→20:32)
[2017-04-11] MEDS: METOPROLOL TART IMMED RELEASE 25 MG TABLET PO SCH ×2 (08:56→20:38)
[2017-04-11] MEDS: MAGNESIUM OXIDE 400 MG TABLET PO SCH ×3 (08:56→20:32)
[2017-04-11] MEDS: clonazePAM 0.5 MG TABLET PO SCH ×2 (08:57→13:46)
--- NOTE | 2017-04-11 14:59 | RAD ---
Bilateral femurs AP and lateral views. History: Bilateral leg pain Left femur AP and lateral views were taken of the left femur. There is no fracture or osseous abnormality Right femur AP and lateral views were taken of the right femur. There is no fracture or osseous abnormality. There is an intramedullary david in the right tibia. Impression: 1. Negative bilateral femurs.
--- NOTE | 2017-04-11 15:10 | RAD ---
Bilateral tibia and fibula 2 views each. History: Pain AP and lateral views were taken of the right tibia and fibula. There is an old healed fracture of the proximal fibula. There is an intramedullary david in the tibia with an old healed distal tibia fracture. There is no acute fracture or acute osseous abnormality. AP and lateral views were taken of the left tibia and fibula. There is no fracture or osseous abnormality. Impression: 1. Negative left tibia and fibula. 2. Old healed fractures of the right tibia and fibula with an intramedullary david in the right tibia.
--- NOTE | 2017-04-11 15:12 | RAD ---
Lumbar spine 3 views. History: Low back pain 3 views were taken of the lumbar spine. There are clips from a cholecystectomy. The spine is in normal alignment. Disc spaces are normal in height. A fracture is not identified. There is minimal hypertrophic change. Impression: 1. Negative lumbar spine except for mild hypertrophic and degenerative change.
--- NOTE | 2017-04-11 15:15 | RAD ---
Bilateral feet 3 views each. History: Pain, history of fractures Right foot 3 views were taken of the right foot. There is no fracture or osseous abnormality. There is an intramedullary david with an old healed fracture of the tibia. There is slight spurring from arthritis at the first metatarsal phalangeal joint. Left foot 3 views were taken of the left foot. There is been a previous fusion between the first cuneiform and the first metatarsal with screws in each bone. There is no acute fracture. There is no other acute osseous abnormality. There is slight spurring from arthritis at the first metatarsal phalangeal joint Impression: 1. Fusion of the joint between the first cuneiform and first metatarsal of the left foot. 2. No other acute osseous abnormality noted in the left foot. 3. No acute osseous abnormality noted in the right foot. 4. 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
[2017-04-11 16:36] VITALS: BP 106/65
[2017-04-11] MEDS: RIVAROXABAN 10 MG TABLET. PO SCH (17:57)
[2017-04-11] MEDS ORDERED: TEMAZEPAM 15 MG CAPSULE PO PRN (19:45)
[2017-04-11] MEDS: LITHIUM CARBONATE 150 MG CAPSULE. PO SCH (20:29)
[2017-04-11] MEDS: traZODone 100 MG TABLET. PO SCH (20:31)
[2017-04-11] MEDS: ATORVASTATIN CALCIUM 20 MG TABLET PO SCH (20:31)
[2017-04-11] MEDS: MONTELUKAST 10 MG TABLET. PO SCH (20:31)
[2017-04-11] MEDS: risperiDONE 2 MG TABLET. PO SCH (20:32)
[2017-04-11] MEDS: QUEtiapine 100 MG TABLET. PO SCH (20:32)
[2017-04-11] MEDS: MIRTAZAPINE 7.5 MG TABLET. PO SCH (20:32)
--- NOTE | 2017-04-11 21:13 | PDOC ---
Exam Dixon Demential Exam: Dixon Note: Please also refer to the separate dictated note~for this date of service dictated separately.~Patient seen individually. Discussed the patient with Nursing staff reviewed the chart.~Reviewed interim history and current functioning. Reviewed vital signs,~Labs/ Radiology~and current medications noted below. Continue current treatment with the changes noted in the dictated addendum note Assessment: Vital Signs: Vital Signs Date Time Temp Pulse Resp B/P (MAP) Pulse Ox O2 Delivery O2 Flow Rate FiO2 04/11/17 20:38 70 144/75 04/11/17 16:36 98.8 20 98 04/11/17 06:06 Room Air I&O Intake and Output 04/12/17 07:00 Intake Total 720 ml Balance 720 ml Intake Oral 720 ml Current Medications: Meds: Current Medications Acetaminophen (Tylenol) 650 mg PRN Q6HRS PRN PO PAIN / TEMP Last administered on 04/11/17 06:10; Start 03/25/17 at 16:45 Multi-Ingredient Ointment (Analgesic [place]) 1 zeus PRN QID PRN TP MUSCLE PAIN Last administered on 04/11/17 06:10; Start 03/25/17 at 16:45 Al Hydroxide/Mg Hydroxide (Mylanta Plus Xs) 15 ml PRN AFTMEALHC PRN PO DYSPEPSIA Last administered on 04/02/17 03:58; Start 03/25/17 at 16:45 Magnesium Hydroxide (Milk Of Magnesia) 2,400 mg PRN QHS PRN PO CONSTIPATION Last administered on 04/08/17 11:25; Start 03/25/17 at 16:45 Acetaminophen (Tylenol) 500 mg PRN Q6HRS PO ; Start 03/25/17 at 16:45 Atorvastatin Calcium (Lipitor) 20 mg QHS PO Last administered on 04/11/17 20: 31; Start 03/25/17 at 21:00 Docusate Sodium (Colace) 100 mg BID PO Last administered on 04/11/17 20:31; Start 03/25/17 at 21:00 Levothyroxine Sodium (Synthroid) 25 mcg DAILY06 PO Last administered on 06:05; Start 03/26/17 at 06:00 Metoprolol Tartrate (Lopressor) 25 mg BID PO Last administered on 04/11/17 20: 38; Start 03/25/17 at 21:00 Montelukast Sodium (Singulair) 10 mg HS PO Last administered on 04/11/17 20:31 ; Start 03/25/17 at 21:00 Pantoprazole Sodium (Protonix) 40 mg BID PO Last administered on 04/11/17 20: 32; Start 03/25/17 at 21:00 Risperidone (RisperDAL) 2 mg QHS PO Last administered on 03/28/17 19:32; Start 03/25/17 at 21:00; Stop 03/29/17 at 18:25; Status DC Rivaroxaban (Xarelto) 15 mg DAILYWSUP PO Last administered on 03/25/17 20:36; Start 03/25/17 at 17:00; Stop 03/26/17 at 18:03; Status DC Trazodone HCl (Desyrel) 100 mg PRN QHS PRN PO INSOMNIA; Start 03/25/17 at 16:45 ; Stop 03/26/17 at 18:44; Status DC Diltiazem HCl (Cardizem 24hr Cd) 240 mg DAILY PO Last administered on 08:55; Start 03/26/17 at 09:00 [place]arratt Carbonate 150 mg QHS PO Last administered on 03/26/17 19:44; Start at 21:00; Stop 03/27/17 at 19:13; Status DC Jarratt Carbonate 300 mg DAILY PO Last administered on 04/11/17 08:55; Start 03/25/17 at 17:00 Potassium Chloride (Klor-Con) 10 meq DAILYWBKFT PO Last administered on 08:55; Start 03/26/17 at 08:00 Olanzapine (ZyPREXA ZYDIS) 2.5 mg PRN Q2HR PRN PO PSYCHOSIS/AGITATION Last administered on 04/09/17 21:09; Start 03/26/17 at 14:30 Vitamin D (Vitamin D3) 50,000 unit WEEKLY PO Last administered on 04/09/17 08: 00; Start 04/02/17 at 09:00 Magnesium Oxide (Magnesium Oxide) 400 mg TID PO Last administered on 04/11/17 20:32; Start 03/26/17 at 21:00 Rivaroxaban (Xarelto) 20 mg DAILYWSUP PO Last administered on 04/11/17 17:57; Start 03/27/17 at 08:00 Trazodone HCl (Desyrel) 100 mg QHS PO Last administered on 03/27/17 20:20; Start 03/26/17 at 21:00; Stop 03/28/17 at 18:59; Status DC Trazodone HCl (Desyrel) 100 mg PRN QHS PRN PO INSOMNIA; Start 03/26/17 at 21:00 ; Stop 03/28/17 at 18:59; Status DC Jarratt Carbonate 300 mg QHS PO Last administered on 04/03/17 19:28; Start at 21:00; Stop 04/03/17 at 19:51; Status DC Trazodone HCl (Desyrel) 150 mg PRN QHS PRN PO INSOMNIA Last administered on 21:11; Start 03/28/17 at 21:00 Trazodone HCl (Desyrel) 150 mg QHS PO Last administered on 04/11/17 20:31; Start 03/28/17 at 21:00 Risperidone (RisperDAL) 2 mg QHS PO Last administered on 04/11/17 20:32; Start 03/29/17 at 21:00 Risperidone (RisperDAL) 0.5 mg HS PO Last administered on 03/30/17 19:47; Start 03/29/17 at 21:00; Stop 03/31/17 at 18:47; Status DC Mirtazapine (Remeron) 7.5 mg QHS PO Last administered on 04/11/17 20:32; Start 03/30/17 at 21:00 Quetiapine Fumarate (SEROquel) 50 mg QHS PO Last administered on 04/01/17 19: 47; Start 03/31/17 at 21:00; Stop 04/02/17 at 09:00; Status DC Quetiapine Fumarate (SEROquel) 100 mg HS PO Last administered on 04/11/17 20: 32; Start 04/02/17 at 21:00 Clonazepam (KlonoPIN) 0.25 mg BID92 PO Last administered on 04/11/17 13:46; Start 04/01/17 at 14:00 Fluvoxamine Maleate (Luvox) 25 mg HS PO Last administered on 04/04/17 19:48; Start 04/01/17 at 21:00; Stop 04/05/17 at 17:41; Status DC Cyclosporine (Restasis) 1 drop BID OU Last administered on 04/11/17 20:29; Start 04/02/17 at 21:00 Jarratt Carbonate 450 mg QHS PO Last administered on 04/11/17 20:29; Start at 21:00 Fluvoxamine Maleate (Luvox) 50 mg HS PO Last administered on 04/11/17 20:31; Start 04/05/17 at 21:00 Zolpidem Tartrate (Ambien) 5 mg PRN QHS PRN PO INSOMNIA Last administered on 23:49; Start 04/10/17 at 20:00; Stop 04/11/17 at 19:36; Status DC Temazepam (Restoril) 15 mg PRN QHS PRN PO INSOMNIA, MAY REPEAT X1 Last administered on 04/11/17 20:39; Start 04/11/17 at 19:45 Active Scripts Active Reported Trazodone Hcl 100 Mg Tablet 1 Tab PO PRN QHS Risperdal (Risperidone) 2 Mg Tablet 1 Tab PO QHS Xarelto (Rivaroxaban) 10 Mg Tablet 20 Mg PO DAILYWSUP Metoprolol Tartrate 25 Mg Tablet 1 Tab PO BID [place] Carbonate 150 Mg Capsule 1 Cap PO HS Acetaminophen 500 Mg Tablet 1 Tab PO PRN Q6HRS [place] Carbonate 300 Mg Tablet 300 Mg PO DAILY Pantoprazole Sodium 40 Mg Tablet.dr 40 Mg PO BID Doc-Q-Lace (Docusate Sodium) 100 Mg Capsule 100 Mg PO BID Potassium Chloride 10 Meq Tablet.er 10 Meq PO DAILYWBKFT Diltiazem 24Hr ER (Diltiazem HCl) 240 Mg Tab.er.24h 240 Mg PO DAILY Atorvastatin Calcium 20 Mg Tablet 20 Mg PO QHS NOT GIVEN IN THE HOSPITAL NEXT DOSE DUE: DATE: RESTART TODAY TIME: AT BEDTIME Levothyroxine Sodium 25 Mcg Tablet 1 Tab PO DAILY07 LAST DOSE GIVEN: DATE:TODAY TIME: BEFORE BREAKFAST NEXT DOSE DUE: DATE: TOMORROW TIME: BEFORE BREAKFAST Singulair Tablet (Montelukast Sodium) 10 Mg Tablet 10 Mg PO HS NOT GIVEN IN HOSPITAL NEXT DOSE DUE: DATE: RESTART TODAY TIME: AT BEDTIME Diagnosis: Problems: (1) Anxiety disorder (2) Anxiety disorder (3) Bipolar affective disorder (4) Delusional disorder (5) Bipolar affective, mixed, sev w/ psych (6) Bipolar affective, mixed, sev w/ psych (7) Dementia, vascular, with depression (8) Dementia, vascular, with delusions EULALIA NANCE MD Apr 11, 2017 21:13
[2017-04-12] MEDS: traZODone 100 MG TABLET. PO PRN (01:13)
--- NOTE | 2017-04-12 04:07 | PN ---
DATE: 04/10/2017 PSYCHIATRIC PROGRESS NOTE This late entry 04/10/2017, covers elements not covered in my initial note of 04/10/2017. I met with the patient evening of 04/10/2017. The patient has been very talkative, more coherent, compliant with medications, out of the room more, seems better, which she has done this in the past where for a day or two, she seems better and then relapses. She slept 7 and 1/4 hours, but states she does not have a good sleep, has difficulty with initial insomnia and we will start Ambien 5 mg at bedtime p.r.n. REVIEW OF SYSTEMS: Positive for vague somatic symptoms. No CV, , pulmonary, eye, ENT system symptoms on review. MENTAL STATUS EXAM: Reasonably oriented. Speech is coherent, less pressured. Abstraction fair, computation impaired, language function intact, attention span short, mood and affect, lability is improved. LABORATORY DATA: Reviewed. IMPRESSION: Unchanged from initial note. PLAN: Continue psychotropics mentioned in my initial note, start Ambien 5 mg at bedtime p.r.n. Reviewed drug interactions, risk/benefit ratio favors no further change. MAN Chantell NANCE MD DR: ELLIS/fernando JOB#: [id number] / [id number]
[2017-04-12 05:48] VITALS: BP 142/84
[2017-04-12] MEDS: LEVOTHYROXINE 25 MCG TABLET. PO SCH (06:42)
[2017-04-12] MEDS: clonazePAM 0.5 MG TABLET PO SCH ×2 (08:16→13:43)
[2017-04-12] MEDS: cycloSPORINE 0.05% OPTH 1 DROP DROPERETTE OU SCH ×2 (08:16→19:45)
[2017-04-12] MEDS: MAGNESIUM OXIDE 400 MG TABLET PO SCH ×3 (08:17→19:43)
[2017-04-12] MEDS: POTASSIUM CHLORIDE 10 MEQ TABLET.ER. PO SCH (08:17)
[2017-04-12] MEDS: LITHIUM CARBONATE 300 MG TABLET PO SCH (08:17)
[2017-04-12] MEDS: METOPROLOL TART IMMED RELEASE 25 MG TABLET PO SCH ×2 (08:17→19:43)
[2017-04-12] MEDS: DOCUSATE SODIUM 100 MG CAPSULE PO SCH ×2 (08:17→19:44)
[2017-04-12] MEDS: PANTOPRAZOLE 40 MG TABLET. PO SCH ×2 (08:17→19:42)
[2017-04-12 16:49] VITALS: BP 105/71
[2017-04-12] MEDS: RIVAROXABAN 10 MG TABLET. PO SCH (17:10)
[2017-04-12] MEDS: QUEtiapine 100 MG TABLET. PO SCH (19:41)
[2017-04-12] MEDS: DOXEPIN HCL 25 MG CAPSULE PO SCH (19:41)
[2017-04-12] MEDS: MIRTAZAPINE 7.5 MG TABLET. PO SCH (19:42)
[2017-04-12] MEDS: risperiDONE 2 MG TABLET. PO SCH (19:42)
[2017-04-12] MEDS: ATORVASTATIN CALCIUM 20 MG TABLET PO SCH (19:44)
[2017-04-12] MEDS: traZODone 100 MG TABLET. PO SCH (19:44)
[2017-04-12] MEDS: LITHIUM CARBONATE 150 MG CAPSULE. PO SCH (19:45)
[2017-04-12] MEDS: MONTELUKAST 10 MG TABLET. PO SCH (19:45)
--- NOTE | 2017-04-12 21:06 | PDOC ---
Exam Dixon Demential Exam: Dixon Note: Please also refer to the separate dictated note~for this date of service dictated separately.~Patient seen individually. Discussed the patient with Nursing staff reviewed the chart.~Reviewed interim history and current functioning. Reviewed vital signs,~Labs/ Radiology~and current medications noted below. Continue current treatment with the changes noted in the dictated addendum note Assessment: Vital Signs: Vital Signs Date Time Temp Pulse Resp B/P (MAP) Pulse Ox O2 Delivery O2 Flow Rate FiO2 04/12/17 19:43 60 105/71 04/12/17 16:49 97.0 20 99 04/11/17 06:06 Room Air I&O Intake and Output 04/13/17 07:00 Intake Total 1320 ml Balance 1320 ml Intake Oral 1320 ml Current Medications: Meds: Current Medications Acetaminophen (Tylenol) 650 mg PRN Q6HRS PRN PO PAIN / TEMP Last administered on 04/11/17 06:10; Start 03/25/17 at 16:45 Multi-Ingredient Ointment (Analgesic [place]) 1 zeus PRN QID PRN TP MUSCLE PAIN Last administered on 04/11/17 06:10; Start 03/25/17 at 16:45 Al Hydroxide/Mg Hydroxide (Mylanta Plus Xs) 15 ml PRN AFTMEALHC PRN PO DYSPEPSIA Last administered on 04/02/17 03:58; Start 03/25/17 at 16:45 Magnesium Hydroxide (Milk Of Magnesia) 2,400 mg PRN QHS PRN PO CONSTIPATION Last administered on 04/08/17 11:25; Start 03/25/17 at 16:45 Acetaminophen (Tylenol) 500 mg PRN Q6HRS PO ; Start 03/25/17 at 16:45 Atorvastatin Calcium (Lipitor) 20 mg QHS PO Last administered on 04/12/17 19: 44; Start 03/25/17 at 21:00 Docusate Sodium (Colace) 100 mg BID PO Last administered on 04/12/17 19:44; Start 03/25/17 at 21:00 Levothyroxine Sodium (Synthroid) 25 mcg DAILY06 PO Last administered on 06:42; Start 03/26/17 at 06:00 Metoprolol Tartrate (Lopressor) 25 mg BID PO Last administered on 04/12/17 19: 43; Start 03/25/17 at 21:00 Montelukast Sodium (Singulair) 10 mg HS PO Last administered on 04/12/17 19:45 ; Start 03/25/17 at 21:00 Pantoprazole Sodium (Protonix) 40 mg BID PO Last administered on 04/12/17 19: 42; Start 03/25/17 at 21:00 Risperidone (RisperDAL) 2 mg QHS PO Last administered on 03/28/17 19:32; Start 03/25/17 at 21:00; Stop 03/29/17 at 18:25; Status DC Rivaroxaban (Xarelto) 15 mg DAILYWSUP PO Last administered on 03/25/17 20:36; Start 03/25/17 at 17:00; Stop 03/26/17 at 18:03; Status DC Trazodone HCl (Desyrel) 100 mg PRN QHS PRN PO INSOMNIA; Start 03/25/17 at 16:45 ; Stop 03/26/17 at 18:44; Status DC Diltiazem HCl (Cardizem 24hr Cd) 240 mg DAILY PO Last administered on 08:17; Start 03/26/17 at 09:00 [place] Carbonate 150 mg QHS PO Last administered on 03/26/17 19:44; Start at 21:00; Stop 03/27/17 at 19:13; Status DC [place] Carbonate 300 mg DAILY PO Last administered on 04/12/17 08:17; Start 03/25/17 at 17:00 Potassium Chloride (Klor-Con) 10 meq DAILYWBKFT PO Last administered on 08:17; Start 03/26/17 at 08:00 Olanzapine (ZyPREXA ZYDIS) 2.5 mg PRN Q2HR PRN PO PSYCHOSIS/AGITATION Last administered on 04/12/17 19:45; Start 03/26/17 at 14:30 Vitamin D (Vitamin D3) 50,000 unit WEEKLY PO Last administered on 04/09/17 08: 00; Start 04/02/17 at 09:00 Magnesium Oxide (Magnesium Oxide) 400 mg TID PO Last administered on 04/12/17 19:43; Start 03/26/17 at 21:00 Rivaroxaban (Xarelto) 20 mg DAILYWSUP PO Last administered on 04/12/17 17:10; Start 03/27/17 at 08:00 Trazodone HCl (Desyrel) 100 mg QHS PO Last administered on 03/27/17 20:20; Start 03/26/17 at 21:00; Stop 03/28/17 at 18:59; Status DC Trazodone HCl (Desyrel) 100 mg PRN QHS PRN PO INSOMNIA; Start 03/26/17 at 21:00 ; Stop 03/28/17 at 18:59; Status DC [place] Carbonate 300 mg QHS PO Last administered on 04/03/17 19:28; Start at 21:00; Stop 04/03/17 at 19:51; Status DC Trazodone HCl (Desyrel) 150 mg PRN QHS PRN PO INSOMNIA Last administered on 01:13; Start 03/28/17 at 21:00 Trazodone HCl (Desyrel) 150 mg QHS PO Last administered on 04/12/17 19:44; Start 03/28/17 at 21:00 Risperidone (RisperDAL) 2 mg QHS PO Last administered on 04/12/17 19:42; Start 03/29/17 at 21:00 Risperidone (RisperDAL) 0.5 mg HS PO Last administered on 03/30/17 19:47; Start 03/29/17 at 21:00; Stop 03/31/17 at 18:47; Status DC Mirtazapine (Remeron) 7.5 mg QHS PO Last administered on 04/12/17 19:42; Start 03/30/17 at 21:00 Quetiapine Fumarate (SEROquel) 50 mg QHS PO Last administered on 04/01/17 19: 47; Start 03/31/17 at 21:00; Stop 04/02/17 at 09:00; Status DC Quetiapine Fumarate (SEROquel) 100 mg HS PO Last administered on 04/12/17 19: 41; Start 04/02/17 at 21:00 Clonazepam (KlonoPIN) 0.25 mg BID92 PO Last administered on 04/12/17 13:43; Start 04/01/17 at 14:00 Fluvoxamine Maleate (Luvox) 25 mg HS PO Last administered on 04/04/17 19:48; Start 04/01/17 at 21:00; Stop 04/05/17 at 17:41; Status DC Cyclosporine (Restasis) 1 drop BID OU Last administered on 04/12/17 19:45; Start 04/02/17 at 21:00 [place] Carbonate 450 mg QHS PO Last administered on 04/12/17 19:45; Start at 21:00 Fluvoxamine Maleate (Luvox) 50 mg HS PO Last administered on 04/12/17 19:43; Start 04/05/17 at 21:00 Zolpidem Tartrate (Ambien) 5 mg PRN QHS PRN PO INSOMNIA Last administered on 23:49; Start 04/10/17 at 20:00; Stop 04/11/17 at 19:36; Status DC Temazepam (Restoril) 15 mg PRN QHS PRN PO INSOMNIA, MAY REPEAT X1 Last administered on 04/11/17 20:39; Start 04/11/17 at 19:45; Stop 04/12/17 at 18:01 ; Status DC Doxepin HCl (SINEquan) 50 mg QHS PO Last administered on 04/12/17 19:41; Start 04/12/17 at 21:00 Active Scripts Active Reported Trazodone Hcl 100 Mg Tablet 1 Tab PO PRN QHS Risperdal (Risperidone) 2 Mg Tablet 1 Tab PO QHS Xarelto (Rivaroxaban) 10 Mg Tablet 20 Mg PO DAILYWSUP Metoprolol Tartrate 25 Mg Tablet 1 Tab PO BID [place] Carbonate 150 Mg Capsule 1 Cap PO HS Acetaminophen 500 Mg Tablet 1 Tab PO PRN Q6HRS [place] Carbonate 300 Mg Tablet 300 Mg PO DAILY Pantoprazole Sodium 40 Mg Tablet.dr 40 Mg PO BID Doc-Q-Lace (Docusate Sodium) 100 Mg Capsule 100 Mg PO BID Potassium Chloride 10 Meq Tablet.er 10 Meq PO DAILYWBKFT Diltiazem 24Hr ER (Diltiazem HCl) 240 Mg Tab.er.24h 240 Mg PO DAILY Atorvastatin Calcium 20 Mg Tablet 20 Mg PO QHS NOT GIVEN IN THE HOSPITAL NEXT DOSE DUE: DATE: RESTART TODAY TIME: AT BEDTIME Levothyroxine Sodium 25 Mcg Tablet 1 Tab PO DAILY07 LAST DOSE GIVEN: DATE:TODAY TIME: BEFORE BREAKFAST NEXT DOSE DUE: DATE: TOMORROW TIME: BEFORE BREAKFAST Singulair Tablet (Montelukast Sodium) 10 Mg Tablet 10 Mg PO HS NOT GIVEN IN HOSPITAL NEXT DOSE DUE: DATE: RESTART TODAY TIME: AT BEDTIME Diagnosis: Problems: (1) Anxiety disorder (2) Anxiety disorder (3) Bipolar affective disorder (4) Bipolar affective disorder (5) Impulse control disorder (6) Delusional disorder (7) Bipolar affective, mixed, sev w/ psych (8) Bipolar affective, mixed, sev w/ psych (9) Dementia, vascular, with depression (10) Dementia, vascular, with delusions EULALIA NANCE MD Apr 12, 2017 21:06
--- NOTE | 2017-04-13 01:01 | PN ---
DATE: 04/11/2017 PSYCHIATRIC PROGRESS NOTE This is a late entry for 04/11/2017, covers elements not covered in my initial note of 04/11/2017. SUBJECTIVE: I met with the patient the evening of 04/11/2017. The patient remains quite somatic, anxious, complains of vague pain. She has had extensive x-rays per Dr. Kim and it did show some mild arthritis, nothing else clearly to explain her marked somatic symptoms. She still complains of insomnia. REVIEW OF SYSTEMS: No CV, , pulmonary, eye system symptoms on review. I met with her in her room. MENTAL STATUS EXAM: Reasonably oriented. Speech is coherent, anxious. Abstraction fair, computation impaired, language function intact, attention span short. Mood and affect remain somewhat anxious, labile. LABORATORY DATA: Reviewed. IMPRESSION: Unchanged from initial note. PLAN: Change Ambien to Restoril 15 mg at bedtime p.r.n., november repeat x 1 for insomnia. Maintain the rest of psychotropics mentioned in my initial note unchanged. [place] level is 0.7. Reviewed drug interactions. Risk/benefit ratio favors no further change. MAN Chantell NANCE MD DR: ELLIS/fernando JOB#: [id number] / [id number]
[2017-04-13] MEDS: traZODone 100 MG TABLET. PO PRN ×2 (02:03→22:05)
[2017-04-13] MEDS: LEVOTHYROXINE 25 MCG TABLET. PO SCH (05:09)
[2017-04-13 05:51] VITALS: BP 141/98
[2017-04-13] MEDS: PANTOPRAZOLE 40 MG TABLET. PO SCH ×2 (08:56→20:14)
[2017-04-13] MEDS: MAGNESIUM OXIDE 400 MG TABLET PO SCH ×3 (08:57→20:17)
[2017-04-13] MEDS: POTASSIUM CHLORIDE 10 MEQ TABLET.ER. PO SCH (08:57)
[2017-04-13] MEDS: DOCUSATE SODIUM 100 MG CAPSULE PO SCH ×2 (08:57→20:17)
[2017-04-13] MEDS: METOPROLOL TART IMMED RELEASE 25 MG TABLET PO SCH ×2 (08:57→20:16)
[2017-04-13] MEDS: cycloSPORINE 0.05% OPTH 1 DROP DROPERETTE OU SCH ×2 (08:57→20:21)
[2017-04-13] MEDS: LITHIUM CARBONATE 300 MG TABLET PO SCH (08:57)
[2017-04-13] MEDS: clonazePAM 0.5 MG TABLET PO SCH ×2 (08:57→14:22)
[2017-04-13] MEDS: MAGNESIUM HYDROXIDE 2,400 MG/30 ML ORAL.SUSP. PO PRN (14:31)
[2017-04-13 15:56] VITALS: BP 95/60
[2017-04-13] MEDS: RIVAROXABAN 10 MG TABLET. PO SCH (16:49)
--- NOTE | 2017-04-13 20:08 | PN ---
DATE: 04/12/2017 SUBJECTIVE: This is a late entry 04/12/2017, covers elements not covered in my initial of 04/12/2017. I met with the patient in the evening of 04/12/2017. The patient remains somewhat anxious and restless, but less up and down from the chair and bed. She still complains of insomnia even though it is documented she slept 4 hours. She said in the past she was on doxepin up to 150 mg at night by Dr[address] Chacon and did very well on this for her mood and insomnia and she wanted to try it again. REVIEW OF SYSTEMS: Positive for anxiety. No CV, , pulmonary, eye, or ENT system symptoms on review. MENTAL STATUS EXAM: Reasonably oriented. Speech coherent, abstraction fair, computation impaired, language function intact, and attention span short. Mood and affect remain somewhat anxious and labile. LABORATORY DATA: Reviewed. IMPRESSION: Unchanged from initial note. PLAN: Change the Restoril to doxepin 50 mg at bedtime. Maintain lithium, Risperdal, trazodone, Luvox, and Klonopin at current dosage. Adjust further as clinically indicated. Reviewed drug interactions. Risks and benefit ratio favors no further change. EULALIA NANCE MD DR: ELLIS/fernando JOB#: [id number] / [id number]
[2017-04-13] MEDS: traZODone 100 MG TABLET. PO SCH (20:14)
[2017-04-13] MEDS: MIRTAZAPINE 7.5 MG TABLET. PO SCH (20:16)
[2017-04-13] MEDS: MONTELUKAST 10 MG TABLET. PO SCH (20:17)
[2017-04-13] MEDS: ATORVASTATIN CALCIUM 20 MG TABLET PO SCH (20:17)
[2017-04-13] MEDS: DOXEPIN HCL 25 MG CAPSULE PO SCH (20:17)
[2017-04-13] MEDS: LITHIUM CARBONATE 150 MG CAPSULE. PO SCH (20:17)
[2017-04-13] MEDS: risperiDONE 2 MG TABLET. PO SCH (20:17)
[2017-04-13] MEDS: QUEtiapine 100 MG TABLET. PO SCH (20:17)
--- NOTE | 2017-04-13 20:48 | PDOC ---
Exam Dixon Demential Exam: Dixon Note: Please also refer to the separate dictated note~for this date of service dictated separately.~Patient seen individually. Discussed the patient with Nursing staff reviewed the chart.~Reviewed interim history and current functioning. Reviewed vital signs,~Labs/ Radiology~and current medications noted below. Continue current treatment with the changes noted in the dictated addendum note Assessment: Vital Signs: Vital Signs Date Time Temp Pulse Resp B/P (MAP) Pulse Ox O2 Delivery O2 Flow Rate FiO2 04/13/17 20:16 60 95/60 04/13/17 15:56 97.0 18 96 04/13/17 05:51 Room Air I&O Intake and Output 04/14/17 07:00 Intake Total 1440 ml Balance 1440 ml Intake Oral 1440 ml Current Medications: Meds: Current Medications Acetaminophen (Tylenol) 650 mg PRN Q6HRS PRN PO PAIN / TEMP Last administered on 04/11/17 06:10; Start 03/25/17 at 16:45 Multi-Ingredient Ointment (Analgesic [place]) 1 zeus PRN QID PRN TP MUSCLE PAIN Last administered on 04/11/17 06:10; Start 03/25/17 at 16:45 Al Hydroxide/Mg Hydroxide (Mylanta Plus Xs) 15 ml PRN AFTMEALHC PRN PO DYSPEPSIA Last administered on 04/02/17 03:58; Start 03/25/17 at 16:45 Magnesium Hydroxide (Milk Of Magnesia) 2,400 mg PRN QHS PRN PO CONSTIPATION Last administered on 04/13/17 14:31; Start 03/25/17 at 16:45 Acetaminophen (Tylenol) 500 mg PRN Q6HRS PO ; Start 03/25/17 at 16:45 Atorvastatin Calcium (Lipitor) 20 mg QHS PO Last administered on 04/13/17 20: 17; Start 03/25/17 at 21:00 Docusate Sodium (Colace) 100 mg BID PO Last administered on 04/13/17 20:17; Start 03/25/17 at 21:00 Levothyroxine Sodium (Synthroid) 25 mcg DAILY06 PO Last administered on 05:09; Start 03/26/17 at 06:00 Metoprolol Tartrate (Lopressor) 25 mg BID PO Last administered on 04/13/17 08: 57; Start 03/25/17 at 21:00 Montelukast Sodium (Singulair) 10 mg HS PO Last administered on 04/13/17 20:17 ; Start 03/25/17 at 21:00 Pantoprazole Sodium (Protonix) 40 mg BID PO Last administered on 04/13/17 20: 14; Start 03/25/17 at 21:00 Risperidone (RisperDAL) 2 mg QHS PO Last administered on 03/28/17 19:32; Start 03/25/17 at 21:00; Stop 03/29/17 at 18:25; Status DC Rivaroxaban (Xarelto) 15 mg DAILYWSUP PO Last administered on 03/25/17 20:36; Start 03/25/17 at 17:00; Stop 03/26/17 at 18:03; Status DC Trazodone HCl (Desyrel) 100 mg PRN QHS PRN PO INSOMNIA; Start 03/25/17 at 16:45 ; Stop 03/26/17 at 18:44; Status DC Diltiazem HCl (Cardizem 24hr Cd) 240 mg DAILY PO Last administered on 08:57; Start 03/26/17 at 09:00 [place] Carbonate 150 mg QHS PO Last administered on 03/26/17 19:44; Start at 21:00; Stop 03/27/17 at 19:13; Status DC [place] Carbonate 300 mg DAILY PO Last administered on 04/13/17 08:57; Start 03/25/17 at 17:00 Potassium Chloride (Klor-Con) 10 meq DAILYWBKFT PO Last administered on 08:57; Start 03/26/17 at 08:00 Olanzapine (ZyPREXA ZYDIS) 2.5 mg PRN Q2HR PRN PO PSYCHOSIS/AGITATION Last administered on 04/12/17 19:45; Start 03/26/17 at 14:30 Vitamin D (Vitamin D3) 50,000 unit WEEKLY PO Last administered on 04/09/17 08: 00; Start 04/02/17 at 09:00 Magnesium Oxide (Magnesium Oxide) 400 mg TID PO Last administered on 04/13/17 20:17; Start 03/26/17 at 21:00 Rivaroxaban (Xarelto) 20 mg DAILYWSUP PO Last administered on 04/13/17 16:49; Start 03/27/17 at 08:00 Trazodone HCl (Desyrel) 100 mg QHS PO Last administered on 03/27/17 20:20; Start 03/26/17 at 21:00; Stop 03/28/17 at 18:59; Status DC Trazodone HCl (Desyrel) 100 mg PRN QHS PRN PO INSOMNIA; Start 03/26/17 at 21:00 ; Stop 03/28/17 at 18:59; Status DC [place] Carbonate 300 mg QHS PO Last administered on 04/03/17 19:28; Start at 21:00; Stop 04/03/17 at 19:51; Status DC Trazodone HCl (Desyrel) 150 mg PRN QHS PRN PO INSOMNIA Last administered on 02:03; Start 03/28/17 at 21:00 Trazodone HCl (Desyrel) 150 mg QHS PO Last administered on 04/13/17 20:14; Start 03/28/17 at 21:00 Risperidone (RisperDAL) 2 mg QHS PO Last administered on 04/13/17 20:17; Start 03/29/17 at 21:00 Risperidone (RisperDAL) 0.5 mg HS PO Last administered on 03/30/17 19:47; Start 03/29/17 at 21:00; Stop 03/31/17 at 18:47; Status DC Mirtazapine (Remeron) 7.5 mg QHS PO Last administered on 04/13/17 20:16; Start 03/30/17 at 21:00 Quetiapine Fumarate (SEROquel) 50 mg QHS PO Last administered on 04/01/17 19: 47; Start 03/31/17 at 21:00; Stop 04/02/17 at 09:00; Status DC Quetiapine Fumarate (SEROquel) 100 mg HS PO Last administered on 04/13/17 20: 17; Start 04/02/17 at 21:00 Clonazepam (KlonoPIN) 0.25 mg BID92 PO Last administered on 04/13/17 14:22; Start 04/01/17 at 14:00 Fluvoxamine Maleate (Luvox) 25 mg HS PO Last administered on 04/04/17 19:48; Start 04/01/17 at 21:00; Stop 04/05/17 at 17:41; Status DC Cyclosporine (Restasis) 1 drop BID OU Last administered on 04/13/17 20:21; Start 04/02/17 at 21:00 [place] Carbonate 450 mg QHS PO Last administered on 04/13/17 20:17; Start at 21:00 Fluvoxamine Maleate (Luvox) 50 mg HS PO Last administered on 04/13/17 20:16; Start 04/05/17 at 21:00 Zolpidem Tartrate (Ambien) 5 mg PRN QHS PRN PO INSOMNIA Last administered on 23:49; Start 04/10/17 at 20:00; Stop 04/11/17 at 19:36; Status DC Temazepam (Restoril) 15 mg PRN QHS PRN PO INSOMNIA, MAY REPEAT X1 Last administered on 04/11/17 20:39; Start 04/11/17 at 19:45; Stop 04/12/17 at 18:01 ; Status DC Doxepin HCl (SINEquan) 50 mg QHS PO Last administered on 04/13/17 20:17; Start 04/12/17 at 21:00 Active Scripts Active Reported Trazodone Hcl 100 Mg Tablet 1 Tab PO PRN QHS Risperdal (Risperidone) 2 Mg Tablet 1 Tab PO QHS Xarelto (Rivaroxaban) 10 Mg Tablet 20 Mg PO DAILYWSUP Metoprolol Tartrate 25 Mg Tablet 1 Tab PO BID [place] Carbonate 150 Mg Capsule 1 Cap PO HS Acetaminophen 500 Mg Tablet 1 Tab PO PRN Q6HRS [place] Carbonate 300 Mg Tablet 300 Mg PO DAILY Pantoprazole Sodium 40 Mg Tablet.dr 40 Mg PO BID Doc-Q-Lace (Docusate Sodium) 100 Mg Capsule 100 Mg PO BID Potassium Chloride 10 Meq Tablet.er 10 Meq PO DAILYWBKFT Diltiazem 24Hr ER (Diltiazem HCl) 240 Mg Tab.er.24h 240 Mg PO DAILY Atorvastatin Calcium 20 Mg Tablet 20 Mg PO QHS NOT GIVEN IN THE HOSPITAL NEXT DOSE DUE: DATE: RESTART TODAY TIME: AT BEDTIME Levothyroxine Sodium 25 Mcg Tablet 1 Tab PO DAILY07 LAST DOSE GIVEN: DATE:TODAY TIME: BEFORE BREAKFAST NEXT DOSE DUE: DATE: TOMORROW TIME: BEFORE BREAKFAST Singulair Tablet (Montelukast Sodium) 10 Mg Tablet 10 Mg PO HS NOT GIVEN IN HOSPITAL NEXT DOSE DUE: DATE: RESTART TODAY TIME: AT BEDTIME Diagnosis: Problems: (1) Anxiety disorder (2) Anxiety disorder (3) Bipolar affective disorder (4) Bipolar affective disorder (5) Impulse control disorder (6) Delusional disorder (7) Bipolar affective, mixed, sev w/ psych (8) Bipolar affective, mixed, sev w/ psych (9) Dementia, vascular, with depression (10) Dementia, vascular, with delusions EULALIA NANCE MD Apr 13, 2017 20:48
[2017-04-14] MEDS: LEVOTHYROXINE 25 MCG TABLET. PO SCH (05:18)
[2017-04-14] MEDS: ACETAMINOPHEN 325 MG TABLET PO PRN (05:24)
[2017-04-14 06:24] VITALS: BP 125/90
[2017-04-14] MEDS: cycloSPORINE 0.05% OPTH 1 DROP DROPERETTE OU SCH ×2 (08:11→19:56)
[2017-04-14] MEDS: DOCUSATE SODIUM 100 MG CAPSULE PO SCH ×2 (08:12→19:41)
[2017-04-14] MEDS: PANTOPRAZOLE 40 MG TABLET. PO SCH ×2 (08:12→19:41)
[2017-04-14] MEDS: MAGNESIUM OXIDE 400 MG TABLET PO SCH ×3 (08:12→19:55)
[2017-04-14] MEDS: METOPROLOL TART IMMED RELEASE 25 MG TABLET PO SCH ×2 (08:12→19:44)
[2017-04-14] MEDS: POTASSIUM CHLORIDE 10 MEQ TABLET.ER. PO SCH (08:13)
[2017-04-14] MEDS: LITHIUM CARBONATE 300 MG TABLET PO SCH (08:13)
[2017-04-14] MEDS: clonazePAM 0.5 MG TABLET PO SCH ×2 (08:18→13:22)
[2017-04-14 10:27] LABS: BASO # 0.1 x10^3/uL (0.0-0.2); BASO % 1 % (0-3); EOS # 0.1 x10^3/uL (0.0-0.7); EOS % 1 % (0-3); HEMATOCRIT 42.1 % (36.0-47.0); HEMOGLOBIN 13.5 g/dL (12.0-15.5); LYMPH # 1.8 x10^3/uL (1.0-4.8); LYMPH % 22 % (24-48); MEAN CORPUSCULAR HEMOGLOBIN 32 pg (25-35); MEAN CORPUSCULAR HGB CONC 32 g/dL (31-37); MEAN CORPUSCULAR VOLUME 98 fL (79-100); MONO # 0.5 x10^3/uL (0.0-1.1); MONO % 7 % (0-9); NEUT # 5.6 x10^3uL (1.8-7.7); NEUT % 69 % (31-73); PLATELET COUNT 221 x10^3/uL (140-400); RED CELL DISTRIBUTION WIDTH 14.1 % (11.5-14.5); WHITE BLOOD COUNT 8.2 x10^3/uL (4.0-11.0)
[2017-04-14 10:41] LABS: ALBUMIN 3.6 g/dL (3.4-5.0); ALBUMIN/GLOBULIN RATIO 1.3 (1.0-1.7); CALCIUM 9.3 mg/dL (8.5-10.1); GFR 55.6; MAGNESIUM 2.3 mg/dL (1.8-2.4); POTASSIUM 4.3 mmol/L (3.5-5.1); TOTAL BILIRUBIN 0.3 mg/dL (0.2-1.0); TOTAL PROTEIN 6.3 g/dL (6.4-8.2)
[2017-04-14] MEDS: ACETAMINOPHEN 325 MG TABLET PO SCH ×2 (13:33→19:54)
[2017-04-14 13:42] LABS: LI 0.8 mmol/L (0.6-1.2)
[2017-04-14] MEDS ORDERED: ACETAMINOPHEN 650 MG/20.3 ML SOLUTION. PO SCH (14:00)
[2017-04-14] MEDS: MAGNESIUM HYDROXIDE 2,400 MG/30 ML ORAL.SUSP. PO PRN (14:06)
[2017-04-14 16:47] VITALS: BP 106/73
[2017-04-14] MEDS: RIVAROXABAN 10 MG TABLET. PO SCH (17:43)
[2017-04-14] MEDS: ATORVASTATIN CALCIUM 20 MG TABLET PO SCH (19:42)
[2017-04-14] MEDS: QUEtiapine 100 MG TABLET. PO SCH (19:43)
[2017-04-14] MEDS: risperiDONE 2 MG TABLET. PO SCH (19:43)
[2017-04-14] MEDS: LITHIUM CARBONATE 150 MG CAPSULE. PO SCH (19:44)
[2017-04-14] MEDS: MONTELUKAST 10 MG TABLET. PO SCH (19:44)
[2017-04-14] MEDS: MIRTAZAPINE 7.5 MG TABLET. PO SCH (19:44)
[2017-04-14] MEDS: traZODone 100 MG TABLET. PO SCH (19:44)
[2017-04-14] MEDS: DOXEPIN HCL 25 MG CAPSULE PO SCH (19:54)
[2017-04-14 20:01] VITALS: BP 111/69
--- NOTE | 2017-04-14 21:06 | PDOC ---
Exam Dixon Demential Exam: Dixon Note: Please also refer to the separate dictated note~for this date of service dictated separately.~Patient seen individually. Discussed the patient with Nursing staff reviewed the chart.~Reviewed interim history and current functioning. Reviewed vital signs,~Labs/ Radiology~and current medications noted below. Continue current treatment with the changes noted in the dictated addendum note Assessment: Vital Signs: Vital Signs Date Time Temp Pulse Resp B/P (MAP) Pulse Ox O2 Delivery O2 Flow Rate FiO2 04/14/17 20:01 64 111/69 (83) 04/14/17 16:47 98.0 18 99 04/13/17 05:51 Room Air I&O Intake and Output 04/15/17 07:00 Intake Total 1080 ml Balance 1080 ml Intake Oral 1080 ml # Bowel Movements 1 Labs: Laboratory Tests Test 04/14/17 10:16 White Blood Count 8.2 x10^3/uL (4.0-11.0) Red Blood Count 4.30 x10^6/uL (3.50-5.40) Hemoglobin 13.5 g/dL (12.0-15.5) Hematocrit 42.1 % (36.0-47.0) Mean Corpuscular Volume 98 fL (79-100) Mean Corpuscular Hemoglobin 32 pg (25-35) Mean Corpuscular Hemoglobin Concent 32 g/dL (31-37) Red Cell Distribution Width 14.1 % (11.5-14.5) Platelet Count 221 x10^3/uL (140-400) Neutrophils (%) (Auto) 69 % (31-73) Lymphocytes (%) (Auto) 22 % (24-48) L Monocytes (%) (Auto) 7 % (0-9) Eosinophils (%) (Auto) 1 % (0-3) Basophils (%) (Auto) 1 % (0-3) Neutrophils # (Auto) 5.6 x10^3uL (1.8-7.7) Lymphocytes # (Auto) 1.8 x10^3/uL (1.0-4.8) Monocytes # (Auto) 0.5 x10^3/uL (0.0-1.1) Eosinophils # (Auto) 0.1 x10^3/uL (0.0-0.7) Basophils # (Auto) 0.1 x10^3/uL (0.0-0.2) Sodium Level 141 mmol/L (136-145) Potassium Level 4.3 mmol/L (3.5-5.1) Chloride Level 106 mmol/L (98-107) Carbon Dioxide Level 30 mmol/L (21-32) Anion Gap 5 (6-14) L Blood Urea Nitrogen 11 mg/dL (7-20) Creatinine 1.0 mg/dL (0.6-1.0) Estimated GFR (Cockcroft-Gault) 55.6 BUN/Creatinine Ratio 11 (6-20) Glucose Level 105 mg/dL (70-99) H Calcium Level 9.3 mg/dL (8.5-10.1) Magnesium Level 2.3 mg/dL (1.8-2.4) Total Bilirubin 0.3 mg/dL (0.2-1.0) Aspartate Amino Transferase (AST) 19 U/L (15-37) Alanine Aminotransferase (ALT) 33 U/L (14-59) Alkaline Phosphatase 91 U/L (46-116) Total Protein 6.3 g/dL (6.4-8.2) L Albumin 3.6 g/dL (3.4-5.0) Albumin/Globulin Ratio 1.3 (1.0-1.7) [facility] Level 0.8 mmol/L (0.6-1.2) [facility] Last Dose Date 04/13/17 [facility] Last Dose Time 2100 Current Medications: Meds: Current Medications Acetaminophen (Tylenol) 650 mg PRN Q6HRS PRN PO PAIN / TEMP Last administered on 04/14/17 05:24; Start 03/25/17 at 16:45 Multi-Ingredient Ointment (Analgesic [place]) 1 zeus PRN QID PRN TP MUSCLE PAIN Last administered on 04/11/17 06:10; Start 03/25/17 at 16:45 Al Hydroxide/Mg Hydroxide (Mylanta Plus Xs) 15 ml PRN AFTMEALHC PRN PO DYSPEPSIA Last administered on 04/02/17 03:58; Start 03/25/17 at 16:45 Magnesium Hydroxide (Milk Of Magnesia) 2,400 mg PRN QHS PRN PO CONSTIPATION Last administered on 04/13/17 14:31; Start 03/25/17 at 16:45 Acetaminophen (Tylenol) 500 mg PRN Q6HRS PO ; Start 03/25/17 at 16:45; Stop at 13:32; Status DC Atorvastatin Calcium (Lipitor) 20 mg QHS PO Last administered on 04/14/17 19: 42; Start 03/25/17 at 21:00 Docusate Sodium (Colace) 100 mg BID PO Last administered on 04/14/17 19:41; Start 03/25/17 at 21:00 Levothyroxine Sodium (Synthroid) 25 mcg DAILY06 PO Last administered on 05:18; Start 03/26/17 at 06:00 Metoprolol Tartrate (Lopressor) 25 mg BID PO Last administered on 04/14/17 19: 44; Start 03/25/17 at 21:00 Montelukast Sodium (Singulair) 10 mg HS PO Last administered on 04/14/17 19:44 ; Start 03/25/17 at 21:00 Pantoprazole Sodium (Protonix) 40 mg BID PO Last administered on 04/14/17 19: 41; Start 03/25/17 at 21:00 Risperidone (RisperDAL) 2 mg QHS PO Last administered on 03/28/17 19:32; Start 03/25/17 at 21:00; Stop 03/29/17 at 18:25; Status DC Rivaroxaban (Xarelto) 15 mg DAILYWSUP PO Last administered on 03/25/17 20:36; Start 03/25/17 at 17:00; Stop 03/26/17 at 18:03; Status DC Trazodone HCl (Desyrel) 100 mg PRN QHS PRN PO INSOMNIA; Start 03/25/17 at 16:45 ; Stop 03/26/17 at 18:44; Status DC Diltiazem HCl (Cardizem 24hr Cd) 240 mg DAILY PO Last administered on 08:12; Start 03/26/17 at 09:00 [place] Carbonate 150 mg QHS PO Last administered on 03/26/17 19:44; Start at 21:00; Stop 03/27/17 at 19:13; Status DC [facility] [place] Carbonate 300 mg DAILY PO Last administered on 04/14/17 08:13; Start 03/25/17 at 17:00 Potassium Chloride (Klor-Con) 10 meq DAILYWBKFT PO Last administered on 08:13; Start 03/26/17 at 08:00 Olanzapine (ZyPREXA ZYDIS) 2.5 mg PRN Q2HR PRN PO PSYCHOSIS/AGITATION Last administered on 04/12/17 19:45; Start 03/26/17 at 14:30 Vitamin D (Vitamin D3) 50,000 unit WEEKLY PO Last administered on 04/09/17 08: 00; Start 04/02/17 at 09:00 Magnesium Oxide (Magnesium Oxide) 400 mg TID PO Last administered on 04/14/17 19:55; Start 03/26/17 at 21:00 Rivaroxaban (Xarelto) 20 mg DAILYWSUP PO Last administered on 04/14/17 17:43; Start 03/27/17 at 08:00 Trazodone HCl (Desyrel) 100 mg QHS PO Last administered on 03/27/17 20:20; Start 03/26/17 at 21:00; Stop 03/28/17 at 18:59; Status DC Trazodone HCl (Desyrel) 100 mg PRN QHS PRN PO INSOMNIA; Start 03/26/17 at 21:00 ; Stop 03/28/17 at 18:59; Status DC [facility] Carbonate 300 mg QHS PO Last administered on 04/03/17 19:28; Start at 21:00; Stop 04/03/17 at 19:51; Status DC Trazodone HCl (Desyrel) 150 mg PRN QHS PRN PO INSOMNIA Last administered on 22:05; Start 03/28/17 at 21:00 Trazodone HCl (Desyrel) 150 mg QHS PO Last administered on 04/14/17 19:44; Start 03/28/17 at 21:00 Risperidone (RisperDAL) 2 mg QHS PO Last administered on 04/13/17 20:17; Start 03/29/17 at 21:00; Stop 04/14/17 at 15:38; Status DC Risperidone (RisperDAL) 0.5 mg HS PO Last administered on 03/30/17 19:47; Start 03/29/17 at 21:00; Stop 03/31/17 at 18:47; Status DC Mirtazapine (Remeron) 7.5 mg QHS PO Last administered on 04/14/17 19:44; Start 03/30/17 at 21:00 Quetiapine Fumarate (SEROquel) 50 mg QHS PO Last administered on 04/01/17 19: 47; Start 03/31/17 at 21:00; Stop 04/02/17 at 09:00; Status DC Quetiapine Fumarate (SEROquel) 100 mg HS PO Last administered on 04/14/17 19: 43; Start 04/02/17 at 21:00 Clonazepam (KlonoPIN) 0.25 mg BID92 PO Last administered on 04/14/17 13:22; Start 04/01/17 at 14:00 Fluvoxamine Maleate (Luvox) 25 mg HS PO Last administered on 04/04/17 19:48; Start 04/01/17 at 21:00; Stop 04/05/17 at 17:41; Status DC Cyclosporine (Restasis) 1 drop BID OU Last administered on 04/14/17 08:11; Start 04/02/17 at 21:00 [place] Carbonate 450 mg QHS PO Last administered on 04/14/17 19:44; Start at 21:00 Fluvoxamine Maleate (Luvox) 50 mg HS PO Last administered on 04/14/17 19:43; Start 04/05/17 at 21:00 Zolpidem Tartrate (Ambien) 5 mg PRN QHS PRN PO INSOMNIA Last administered on 23:49; Start 04/10/17 at 20:00; Stop 04/11/17 at 19:36; Status DC Temazepam (Restoril) 15 mg PRN QHS PRN PO INSOMNIA, MAY REPEAT X1 Last administered on 04/11/17 20:39; Start 04/11/17 at 19:45; Stop 04/12/17 at 18:01 ; Status DC Doxepin HCl (SINEquan) 50 mg QHS PO Last administered on 04/14/17 19:54; Start 04/12/17 at 21:00 Acetaminophen (Tylenol) 650 mg [id number] PO Last administered on 04/14/17 13:22; Start 04/14/17 at 14:00; Stop 04/14/17 at 14:00; Status DC Acetaminophen (Tylenol) 650 mg TID PO Last administered on 04/14/17 19:54; Start 04/14/17 at 14:00 Risperidone (RisperDAL) 2.5 mg QHS PO Last administered on 04/14/17 19:43; Start 04/14/17 at 21:00 Active Scripts Active Reported Trazodone Hcl 100 Mg Tablet 1 Tab PO PRN QHS Risperdal (Risperidone) 2 Mg Tablet 1 Tab PO QHS Xarelto (Rivaroxaban) 10 Mg Tablet 20 Mg PO DAILYWSUP Metoprolol Tartrate 25 Mg Tablet [address] [facility] Carbonate 150 Mg Capsule 1 Cap PO HS Acetaminophen 500 Mg Tablet 1 Tab [address]N Q6HRS [facility] Carbonate 300 Mg Tablet 300 Mg PO DAILY Pantoprazole Sodium 40 Mg Tablet.dr 40 Mg PO BID Doc-Q-Lace (Docusate Sodium) 100 Mg Capsule 100 Mg PO BID Potassium Chloride 10 Meq Tablet.er 10 Meq PO DAILYWBKFT Diltiazem 24Hr ER (Diltiazem HCl) 240 Mg Tab.er.24h 240 Mg PO DAILY Atorvastatin Calcium 20 Mg Tablet 20 Mg PO QHS NOT GIVEN IN THE HOSPITAL NEXT DOSE DUE: DATE: RESTART TODAY TIME: AT BEDTIME Levothyroxine Sodium 25 Mcg Tablet 1 Tab PO DAILY07 LAST DOSE GIVEN: DATE:TODAY TIME: BEFORE BREAKFAST NEXT DOSE DUE: DATE: TOMORROW TIME: BEFORE BREAKFAST Singulair Tablet (Montelukast Sodium) 10 Mg Tablet 10 Mg PO HS NOT GIVEN IN HOSPITAL NEXT DOSE DUE: DATE: RESTART TODAY TIME: AT BEDTIME Diagnosis: Problems: (1) Anxiety disorder (2) Anxiety disorder (3) Bipolar affective disorder (4) Bipolar affective disorder (5) Impulse control disorder (6) Delusional disorder (7) Bipolar affective, mixed, sev w/ psych (8) Bipolar affective, mixed, sev w/ psych (9) Dementia, vascular, with depression (10) Dementia, vascular, with delusions EULALIA NANCE MD Apr 14, 2017 21:06
[2017-04-15] MEDS: LEVOTHYROXINE 25 MCG TABLET. PO SCH (05:40)
[2017-04-15 06:43] VITALS: BP 105/57
[2017-04-15] MEDS: LITHIUM CARBONATE 300 MG TABLET PO SCH (08:21)
[2017-04-15] MEDS: METOPROLOL TART IMMED RELEASE 25 MG TABLET PO SCH ×2 (08:22→19:14)
[2017-04-15] MEDS: PANTOPRAZOLE 40 MG TABLET. PO SCH ×2 (08:23→19:09)
[2017-04-15] MEDS: ACETAMINOPHEN 325 MG TABLET PO SCH ×3 (08:23→19:13)
[2017-04-15] MEDS: POTASSIUM CHLORIDE 10 MEQ TABLET.ER. PO SCH (08:23)
[2017-04-15] MEDS: DOCUSATE SODIUM 100 MG CAPSULE PO SCH ×2 (08:24→19:11)
[2017-04-15] MEDS: cycloSPORINE 0.05% OPTH 1 DROP DROPERETTE OU SCH ×2 (08:24→19:08)
[2017-04-15] MEDS: MAGNESIUM OXIDE 400 MG TABLET PO SCH ×3 (08:24→19:13)
[2017-04-15] MEDS: clonazePAM 0.5 MG TABLET PO SCH ×2 (08:25→13:19)
--- NOTE | 2017-04-15 12:22 | PN ---
DATE: 04/13/2017 This late entry 04/13/2017 covers elements not covered in my initial note of 04/13/2017. I met with the patient evening of 04/13/2017. She slept 6 and a quarter hours previous evening, more awake and alert during the day, less obsessive regarding money matters, pleasant, cooperative. She has, however, made contact with her ex- and talking about living at home with him rather than in a more structured environment. Still somewhat anxious, up and down in her room, but less so as I sat with her in her room evening of 04/13/2017. REVIEW OF SYSTEMS: Positive for vague somatic symptoms. No CV, , pulmonary, eye, ENT system symptoms on review. MENTAL STATUS EXAM: Reasonably oriented. Speech is coherent, abstraction fair, computation impaired, language function intact, attention span short. Mood and affect still somewhat anxious, at times labile, but better than before. LABORATORY DATA: Reviewed. IMPRESSION: Unchanged from initial note. PLAN: Given some of her ongoing paranoia, we will increase her Risperdal to 2.75 mg p.o. at bedtime. Reviewed the rest of her psychotropics and drug interaction, stress benefit ratio favors no further change. [place] level therapeutic at 0.7. Maintain Luvox 50 mg at bedtime. We will try and avoid the use of 2 atypical antipsychotics and clarify the dosage of Seroquel since she is on the Risperdal as well. MAN Chantell NANCE MD DR: ELLIS/fernando JOB#: [id number] / [id number]
[2017-04-15 16:28] VITALS: BP 111/72
[2017-04-15] MEDS: RIVAROXABAN 10 MG TABLET. PO SCH (17:00)
[2017-04-15] MEDS: ACETAMINOPHEN 325 MG TABLET PO PRN (17:00)
[2017-04-15] MEDS: traZODone 100 MG TABLET. PO SCH (19:10)
[2017-04-15] MEDS: MIRTAZAPINE 7.5 MG TABLET. PO SCH (19:11)
[2017-04-15] MEDS: ATORVASTATIN CALCIUM 20 MG TABLET PO SCH (19:11)
[2017-04-15] MEDS: risperiDONE 2 MG TABLET. PO SCH (19:12)
[2017-04-15] MEDS: LITHIUM CARBONATE 150 MG CAPSULE. PO SCH (19:13)
[2017-04-15] MEDS: QUEtiapine 100 MG TABLET. PO SCH (19:13)
[2017-04-15] MEDS: MONTELUKAST 10 MG TABLET. PO SCH (19:13)
[2017-04-15] MEDS: DOXEPIN HCL 25 MG CAPSULE PO SCH (19:26)
--- NOTE | 2017-04-15 21:10 | PDOC ---
Exam Dixon Demential Exam: Dixon Note: Please also refer to the separate dictated note~for this date of service dictated separately.~Patient seen individually. Discussed the patient with Nursing staff reviewed the chart.~Reviewed interim history and current functioning. Reviewed vital signs,~Labs/ Radiology~and current medications noted below. Continue current treatment with the changes noted in the dictated addendum note Assessment: Vital Signs: Vital Signs Date Time Temp Pulse Resp B/P (MAP) Pulse Ox O2 Delivery O2 Flow Rate FiO2 04/15/17 19:14 56 111/72 04/15/17 16:28 97.8 20 98 04/15/17 06:43 Room Air I&O Intake and Output 04/16/17 07:00 Intake Total 840 ml Balance 840 ml Intake Oral 840 ml Current Medications: Meds: Current Medications Acetaminophen (Tylenol) 650 mg PRN Q6HRS PRN PO PAIN / TEMP Last administered on 04/15/17 17:00; Start 03/25/17 at 16:45 Multi-Ingredient Ointment (Analgesic [place]) 1 zeus PRN QID PRN TP MUSCLE PAIN Last administered on 04/11/17 06:10; Start 03/25/17 at 16:45 Al Hydroxide/Mg Hydroxide (Mylanta Plus Xs) 15 ml PRN AFTMEALHC PRN PO DYSPEPSIA Last administered on 04/02/17 03:58; Start 03/25/17 at 16:45 Magnesium Hydroxide (Milk Of Magnesia) 2,400 mg PRN QHS PRN PO CONSTIPATION Last administered on 04/13/17 14:31; Start 03/25/17 at 16:45 Acetaminophen (Tylenol) 500 mg PRN Q6HRS PO ; Start 03/25/17 at 16:45; Stop at 13:32; Status DC Atorvastatin Calcium (Lipitor) 20 mg QHS PO Last administered on 04/15/17 19: 11; Start 03/25/17 at 21:00 Docusate Sodium (Colace) 100 mg BID PO Last administered on 04/15/17 19:11; Start 03/25/17 at 21:00 Levothyroxine Sodium (Synthroid) 25 mcg DAILY06 PO Last administered on 05:40; Start 03/26/17 at 06:00 Metoprolol Tartrate (Lopressor) 25 mg BID PO Last administered on 04/15/17 19: 14; Start 03/25/17 at 21:00 Montelukast Sodium (Singulair) 10 mg HS PO Last administered on 04/15/17 19:13 ; Start 03/25/17 at 21:00 Pantoprazole Sodium (Protonix) 40 mg BID PO Last administered on 04/15/17 19: 09; Start 03/25/17 at 21:00 Risperidone (RisperDAL) 2 mg QHS PO Last administered on 03/28/17 19:32; Start 03/25/17 at 21:00; Stop 03/29/17 at 18:25; Status DC Rivaroxaban (Xarelto) 15 mg DAILYWSUP PO Last administered on 03/25/17 20:36; Start 03/25/17 at 17:00; Stop 03/26/17 at 18:03; Status DC Trazodone HCl (Desyrel) 100 mg PRN QHS PRN PO INSOMNIA; Start 03/25/17 at 16:45 ; Stop 03/26/17 at 18:44; Status DC Diltiazem HCl (Cardizem 24hr Cd) 240 mg DAILY PO Last administered on 08:24; Start 03/26/17 at 09:00 [place] Carbonate 150 mg QHS PO Last administered on 03/26/17 19:44; Start at 21:00; Stop 03/27/17 at 19:13; Status DC [place] Carbonate 300 mg DAILY PO Last administered on 04/15/17 08:21; Start 03/25/17 at 17:00 Potassium Chloride (Klor-Con) 10 meq DAILYWBKFT PO Last administered on 08:23; Start 03/26/17 at 08:00 Olanzapine (ZyPREXA ZYDIS) 2.5 mg PRN Q2HR PRN PO PSYCHOSIS/AGITATION Last administered on 04/12/17 19:45; Start 03/26/17 at 14:30 Vitamin D (Vitamin D3) 50,000 unit WEEKLY PO Last administered on 04/09/17 08: 00; Start 04/02/17 at 09:00 Magnesium Oxide (Magnesium Oxide) 400 mg TID PO Last administered on 04/15/17 19:13; Start 03/26/17 at 21:00 Rivaroxaban (Xarelto) 20 mg DAILYWSUP PO Last administered on 04/15/17 17:00; Start 03/27/17 at 08:00 Trazodone HCl (Desyrel) 100 mg QHS PO Last administered on 03/27/17 20:20; Start 03/26/17 at 21:00; Stop 03/28/17 at 18:59; Status DC Trazodone HCl (Desyrel) 100 mg PRN QHS PRN PO INSOMNIA; Start 03/26/17 at 21:00 ; Stop 03/28/17 at 18:59; Status DC [place] Carbonate 300 mg QHS PO Last administered on 04/03/17 19:28; Start at 21:00; Stop 04/03/17 at 19:51; Status DC Trazodone HCl (Desyrel) 150 mg PRN QHS PRN PO INSOMNIA Last administered on 22:05; Start 03/28/17 at 21:00 Trazodone HCl (Desyrel) 150 mg QHS PO Last administered on 04/15/17 19:10; Start 03/28/17 at 21:00 Risperidone (RisperDAL) 2 mg QHS PO Last administered on 04/13/17 20:17; Start 03/29/17 at 21:00; Stop 04/14/17 at 15:38; Status DC Risperidone (RisperDAL) 0.5 mg HS PO Last administered on 03/30/17 19:47; Start 03/29/17 at 21:00; Stop 03/31/17 at 18:47; Status DC Mirtazapine (Remeron) 7.5 mg QHS PO Last administered on 04/15/17 19:11; Start 03/30/17 at 21:00 Quetiapine Fumarate (SEROquel) 50 mg QHS PO Last administered on 04/01/17 19: 47; Start 03/31/17 at 21:00; Stop 04/02/17 at 09:00; Status DC Quetiapine Fumarate (SEROquel) 100 mg HS PO Last administered on 04/15/17 19: 13; Start 04/02/17 at 21:00 Clonazepam (KlonoPIN) 0.25 mg BID92 PO Last administered on 04/15/17 13:19; Start 04/01/17 at 14:00 Fluvoxamine Maleate (Luvox) 25 mg HS PO Last administered on 04/04/17 19:48; Start 04/01/17 at 21:00; Stop 04/05/17 at 17:41; Status DC Cyclosporine (Restasis) 1 drop BID OU Last administered on 04/15/17 19:08; Start 04/02/17 at 21:00 [place] Carbonate 450 mg QHS PO Last administered on 04/15/17 19:13; Start at 21:00 Fluvoxamine Maleate (Luvox) 50 mg HS PO Last administered on 04/15/17 19:14; Start 04/05/17 at 21:00 Zolpidem Tartrate (Ambien) 5 mg PRN QHS PRN PO INSOMNIA Last administered on 23:49; Start 04/10/17 at 20:00; Stop 04/11/17 at 19:36; Status DC Temazepam (Restoril) 15 mg PRN QHS PRN PO INSOMNIA, MAY REPEAT X1 Last administered on 04/11/17 20:39; Start 04/11/17 at 19:45; Stop 04/12/17 at 18:01 ; Status DC Doxepin HCl (SINEquan) 50 mg QHS PO Last administered on 04/15/17 19:26; Start 04/12/17 at 21:00 Acetaminophen (Tylenol) 650 mg [id number] PO Last administered on 04/14/17 13:22; Start 04/14/17 at 14:00; Stop 04/14/17 at 14:00; Status DC Acetaminophen (Tylenol) 650 mg TID PO Last administered on 04/15/17 19:13; Start 04/14/17 at 14:00 Risperidone (RisperDAL) 2.5 mg QHS PO Last administered on 04/15/17 19:12; Start 04/14/17 at 21:00 Active Scripts Active Reported Trazodone Hcl 100 Mg Tablet 1 Tab PO PRN QHS Risperdal (Risperidone) 2 Mg Tablet 1 Tab PO QHS Xarelto (Rivaroxaban) 10 Mg Tablet 20 Mg PO DAILYWSUP Metoprolol Tartrate 25 Mg Tablet 1 Tab PO BID [place] Carbonate 150 Mg Capsule 1 Cap PO HS Acetaminophen 500 Mg Tablet 1 Tab PO PRN Q6HRS [place] Carbonate 300 Mg Tablet 300 Mg PO DAILY Pantoprazole Sodium 40 Mg Tablet.dr 40 Mg PO BID Doc-Q-Lace (Docusate Sodium) 100 Mg Capsule 100 Mg PO BID Potassium Chloride 10 Meq Tablet.er 10 Meq PO DAILYWBKFT Diltiazem 24Hr ER (Diltiazem HCl) 240 Mg Tab.er.24h 240 Mg PO DAILY Atorvastatin Calcium 20 Mg Tablet 20 Mg PO QHS NOT GIVEN IN THE HOSPITAL NEXT DOSE DUE: DATE: RESTART TODAY TIME: AT BEDTIME Levothyroxine Sodium 25 Mcg Tablet 1 Tab PO DAILY07 LAST DOSE GIVEN: DATE:TODAY TIME: BEFORE BREAKFAST NEXT DOSE DUE: DATE: TOMORROW TIME: BEFORE BREAKFAST Singulair Tablet (Montelukast Sodium) 10 Mg Tablet 10 Mg PO HS NOT GIVEN IN HOSPITAL NEXT DOSE DUE: DATE: RESTART TODAY TIME: AT BEDTIME Diagnosis: Problems: (1) Anxiety disorder (2) Anxiety disorder (3) Bipolar affective disorder (4) Bipolar affective disorder (5) Impulse control disorder (6) Delusional disorder (7) Bipolar affective, mixed, sev w/ psych (8) Bipolar affective, mixed, sev w/ psych (9) Dementia, vascular, with depression (10) Dementia, vascular, with delusions EULALIA NANCE MD Apr 15, 2017 21:10
[2017-04-16] MEDS: LEVOTHYROXINE 25 MCG TABLET. PO SCH (05:57)
[2017-04-16 05:58] VITALS: BP_SYST 117; BP_SYST 96; BP_DIAS 59; BP_DIAS 73
[2017-04-16] MEDS: LITHIUM CARBONATE 300 MG TABLET PO SCH (07:50)
[2017-04-16] MEDS: MONTELUKAST 10 MG TABLET. PO SCH (07:50)
[2017-04-16] MEDS: POTASSIUM CHLORIDE 10 MEQ TABLET.ER. PO SCH (07:50)
[2017-04-16] MEDS: MAGNESIUM OXIDE 400 MG TABLET PO SCH ×3 (07:51→20:10)
[2017-04-16] MEDS: PANTOPRAZOLE 40 MG TABLET. PO SCH ×2 (07:51→20:13)
[2017-04-16] MEDS: DOCUSATE SODIUM 100 MG CAPSULE PO SCH ×2 (07:51→20:10)
[2017-04-16] MEDS: ACETAMINOPHEN 325 MG TABLET PO SCH ×3 (07:51→20:13)
[2017-04-16] MEDS: clonazePAM 0.5 MG TABLET PO SCH ×2 (07:51→13:07)
[2017-04-16] MEDS: cycloSPORINE 0.05% OPTH 1 DROP DROPERETTE OU SCH ×2 (07:52→20:14)
[2017-04-16] MEDS: METOPROLOL TART IMMED RELEASE 25 MG TABLET PO SCH ×2 (07:53→20:19)
[2017-04-16] MEDS: CHOLECALCIFEROL (VITAMIN D3) 50,000 UNIT CAPSULE PO SCH (07:55)
[2017-04-16 07:56] VITALS: BP 107/65
[2017-04-16] MEDS: CYANOCOBALAMIN (VITAMIN B-12) 1,000 MCG TABLET. PO SCH (13:07)
[2017-04-16] MEDS: CETIRIZINE HCL 10 MG TABLET PO SCH (14:11)
[2017-04-16 15:36] VITALS: BP 124/85
[2017-04-16] MEDS: RIVAROXABAN 10 MG TABLET. PO SCH (17:18)
[2017-04-16] MEDS: traZODone 100 MG TABLET. PO SCH (20:09)
[2017-04-16] MEDS: LITHIUM CARBONATE 150 MG CAPSULE. PO SCH (20:09)
[2017-04-16] MEDS: risperiDONE 2 MG TABLET. PO SCH (20:11)
[2017-04-16] MEDS: ATORVASTATIN CALCIUM 20 MG TABLET PO SCH (20:13)
[2017-04-16] MEDS: MIRTAZAPINE 7.5 MG TABLET. PO SCH (20:13)
[2017-04-16] MEDS: DOXEPIN HCL 25 MG CAPSULE PO SCH (20:13)
[2017-04-16] MEDS: QUEtiapine 100 MG TABLET. PO SCH (20:13)
--- NOTE | 2017-04-16 21:05 | PDOC ---
Exam Dixon Demential Exam: Dixon Note: Please also refer to the separate dictated note~for this date of service dictated separately.~Patient seen individually. Discussed the patient with Nursing staff reviewed the chart.~Reviewed interim history and current functioning. Reviewed vital signs,~Labs/ Radiology~and current medications noted below. Continue current treatment with the changes noted in the dictated addendum note Assessment: Vital Signs: Vital Signs Date Time Temp Pulse Resp B/P (MAP) Pulse Ox O2 Delivery O2 Flow Rate FiO2 04/16/17 20:19 60 124/85 04/16/17 15:36 98.8 18 99 04/15/17 06:43 Room Air I&O Intake and Output 04/17/17 07:00 Intake Total 1320 ml Balance 1320 ml Intake Oral 1320 ml Current Medications: Meds: Current Medications Acetaminophen (Tylenol) 650 mg PRN Q6HRS PRN PO PAIN / TEMP Last administered on 04/15/17 17:00; Start 03/25/17 at 16:45 Multi-Ingredient Ointment (Analgesic [place]) 1 zeus PRN QID PRN TP MUSCLE PAIN Last administered on 04/11/17 06:10; Start 03/25/17 at 16:45 Al Hydroxide/Mg Hydroxide (Mylanta Plus Xs) 15 ml PRN AFTMEALHC PRN PO DYSPEPSIA Last administered on 04/02/17 03:58; Start 03/25/17 at 16:45 Magnesium Hydroxide (Milk Of Magnesia) 2,400 mg PRN QHS PRN PO CONSTIPATION Last administered on 04/13/17 14:31; Start 03/25/17 at 16:45 Acetaminophen (Tylenol) 500 mg PRN Q6HRS PO ; Start 03/25/17 at 16:45; Stop at 13:32; Status DC Atorvastatin Calcium (Lipitor) 20 mg QHS PO Last administered on 04/16/17 20: 13; Start 03/25/17 at 21:00 Docusate Sodium (Colace) 100 mg BID PO Last administered on 04/16/17 20:10; Start 03/25/17 at 21:00 Levothyroxine Sodium (Synthroid) 25 mcg DAILY06 PO Last administered on 05:57; Start 03/26/17 at 06:00 Metoprolol Tartrate (Lopressor) 25 mg BID PO Last administered on 04/16/17 20: 19; Start 03/25/17 at 21:00 Montelukast Sodium (Singulair) 10 mg HS PO Last administered on 04/16/17 07:50 ; Start 03/25/17 at 21:00 Pantoprazole Sodium (Protonix) 40 mg BID PO Last administered on 04/16/17 20: 13; Start 03/25/17 at 21:00 Risperidone (RisperDAL) 2 mg QHS PO Last administered on 03/28/17 19:32; Start 03/25/17 at 21:00; Stop 03/29/17 at 18:25; Status DC Rivaroxaban (Xarelto) 15 mg DAILYWSUP PO Last administered on 03/25/17 20:36; Start 03/25/17 at 17:00; Stop 03/26/17 at 18:03; Status DC Trazodone HCl (Desyrel) 100 mg PRN QHS PRN PO INSOMNIA; Start 03/25/17 at 16:45 ; Stop 03/26/17 at 18:44; Status DC Diltiazem HCl (Cardizem 24hr Cd) 240 mg DAILY PO Last administered on 08:24; Start 03/26/17 at 09:00 [place] Carbonate 150 mg QHS PO Last administered on 03/26/17 19:44; Start at 21:00; Stop 03/27/17 at 19:13; Status DC [place] Carbonate 300 mg DAILY PO Last administered on 04/16/17 07:50; Start 03/25/17 at 17:00 Potassium Chloride (Klor-Con) 10 meq DAILYWBKFT PO Last administered on 07:50; Start 03/26/17 at 08:00 Olanzapine (ZyPREXA ZYDIS) 2.5 mg PRN Q2HR PRN PO PSYCHOSIS/AGITATION Last administered on 04/16/17 03:34; Start 03/26/17 at 14:30 Vitamin D (Vitamin D3) 50,000 unit WEEKLY PO Last administered on 04/16/17 07: 55; Start 04/02/17 at 09:00 Magnesium Oxide (Magnesium Oxide) 400 mg TID PO Last administered on 04/16/17 20:10; Start 03/26/17 at 21:00 Rivaroxaban (Xarelto) 20 mg DAILYWSUP PO Last administered on 04/16/17 17:18; Start 03/27/17 at 08:00 Trazodone HCl (Desyrel) 100 mg QHS PO Last administered on 03/27/17 20:20; Start 03/26/17 at 21:00; Stop 03/28/17 at 18:59; Status DC Trazodone HCl (Desyrel) 100 mg PRN QHS PRN PO INSOMNIA; Start 03/26/17 at 21:00 ; Stop 03/28/17 at 18:59; Status DC [place] Carbonate 300 mg QHS PO Last administered on 04/03/17 19:28; Start at 21:00; Stop 04/03/17 at 19:51; Status DC Trazodone HCl (Desyrel) 150 mg PRN QHS PRN PO INSOMNIA Last administered on 22:05; Start 03/28/17 at 21:00 Trazodone HCl (Desyrel) 150 mg QHS PO Last administered on 04/16/17 20:09; Start 03/28/17 at 21:00 Risperidone (RisperDAL) 2 mg QHS PO Last administered on 04/13/17 20:17; Start 03/29/17 at 21:00; Stop 04/14/17 at 15:38; Status DC Risperidone (RisperDAL) 0.5 mg HS PO Last administered on 03/30/17 19:47; Start 03/29/17 at 21:00; Stop 03/31/17 at 18:47; Status DC Mirtazapine (Remeron) 7.5 mg QHS PO Last administered on 04/16/17 20:13; Start 03/30/17 at 21:00 Quetiapine Fumarate (SEROquel) 50 mg QHS PO Last administered on 04/01/17 19: 47; Start 03/31/17 at 21:00; Stop 04/02/17 at 09:00; Status DC Quetiapine Fumarate (SEROquel) 100 mg HS PO Last administered on 04/16/17 20: 13; Start 04/02/17 at 21:00 Clonazepam (KlonoPIN) 0.25 mg [id number] PO Last administered on 04/16/17 13:07; Start 04/01/17 at 14:00 Fluvoxamine Maleate (Luvox) 25 mg HS PO Last administered on 04/04/17 19:48; Start 04/01/17 at 21:00; Stop 04/05/17 at 17:41; Status DC Cyclosporine (Restasis) 1 drop BID OU Last administered on 04/16/17 20:14; Start 04/02/17 at 21:00 [place] Carbonate 450 mg QHS PO Last administered on 04/16/17 20:09; Start at 21:00 Fluvoxamine Maleate (Luvox) 50 mg HS PO Last administered on 04/16/17 20:09; Start 04/05/17 at 21:00 Zolpidem Tartrate (Ambien) 5 mg PRN QHS PRN PO INSOMNIA Last administered on 23:49; Start 04/10/17 at 20:00; Stop 04/11/17 at 19:36; Status DC Temazepam (Restoril) 15 mg PRN QHS PRN PO INSOMNIA, MAY REPEAT X1 Last administered on 04/11/17 20:39; Start 04/11/17 at 19:45; Stop 04/12/17 at 18:01 ; Status DC Doxepin HCl (SINEquan) 50 mg QHS PO Last administered on 04/16/17 20:13; Start 04/12/17 at 21:00 Acetaminophen (Tylenol) 650 mg [id number] PO Last administered on 04/14/17 13:22; Start 04/14/17 at 14:00; Stop 04/14/17 at 14:00; Status DC Acetaminophen (Tylenol) 650 mg TID PO Last administered on 04/16/17 20:13; Start 04/14/17 at 14:00 Risperidone (RisperDAL) 2.5 mg QHS PO Last administered on 04/16/17 20:11; Start 04/14/17 at 21:00 Cyanocobalamin (Vitamin B-12) 1,000 mcg DAILYBFRLUN PO Last administered on 13:07; Start 04/16/17 at 11:30 Cetirizine HCl (ZyrTEC) 10 mg DAILY PO Last administered on 04/16/17t 14:11; Start 04/16/17 at 14:15 Docusate Calcium (Surfak) 240 mg DAILY PO ; Start 04/17/17 at 09:00 Active Scripts Active Reported Trazodone Hcl 100 Mg Tablet 1 Tab PO PRN QHS Risperdal (Risperidone) 2 Mg Tablet 1 Tab PO QHS Xarelto (Rivaroxaban) 10 Mg Tablet 20 Mg PO DAILYWSUP Metoprolol Tartrate 25 Mg Tablet 1 Tab PO BID [place] Carbonate 150 Mg Capsule 1 Cap PO HS Acetaminophen 500 Mg Tablet 1 Tab PO PRN Q6HRS [place] Carbonate 300 Mg Tablet 300 Mg PO DAILY Pantoprazole Sodium 40 Mg Tablet.dr 40 Mg PO BID Doc-Q-Lace (Docusate Sodium) 100 Mg Capsule 100 Mg PO BID Potassium Chloride 10 Meq Tablet.er 10 Meq PO DAILYWBKFT Diltiazem 24Hr ER (Diltiazem HCl) 240 Mg Tab.er.24h 240 Mg PO DAILY Atorvastatin Calcium 20 Mg Tablet 20 Mg PO QHS NOT GIVEN IN THE HOSPITAL NEXT DOSE DUE: DATE: RESTART TODAY TIME: AT BEDTIME Levothyroxine Sodium 25 Mcg Tablet 1 Tab PO DAILY07 LAST DOSE GIVEN: DATE:TODAY TIME: BEFORE BREAKFAST NEXT DOSE DUE: DATE: TOMORROW TIME: BEFORE BREAKFAST Singulair Tablet (Montelukast Sodium) 10 Mg Tablet 10 Mg PO HS NOT GIVEN IN HOSPITAL NEXT DOSE DUE: DATE: RESTART TODAY TIME: AT BEDTIME Diagnosis: Problems: (1) Anxiety disorder (2) Anxiety disorder (3) Bipolar affective disorder (4) Bipolar affective disorder (5) Impulse control disorder (6) Delusional disorder (7) Bipolar affective, mixed, sev w/ psych (8) Bipolar affective, mixed, sev w/ psych (9) Dementia, vascular, with depression (10) Dementia, vascular, with delusions EULALIA NANCE MD Apr 16, 2017 21:05
--- NOTE | 2017-04-16 23:11 | PN ---
DATE: 04/14/2017 PSYCHIATRIC PROGRESS NOTE This late entry 04/14 covers elements not covered in my initial note of 04/14. SUBJECTIVE: I met with the patient evening of 04/14. The patient slept 6-3/4 hours previously evening. She has been increasingly anxious, somatic, needy, but nursing report complains of left hip pain. She has a past history of abusing narcotics and has been asking for these. She is also constipated, received milk of mag. REVIEW OF SYSTEMS: No CV, , pulmonary, eye system symptoms on review. MENTAL STATUS EXAM: The patient is seen individually at length in her room. She is somewhat anxious up and down from her bed, but less so than before. Speech is coherent, abstraction fair, computation impaired, language function intact. Attention span short. Despite the above, mood and affect are improved. LABORATORY DATA: Reviewed. IMPRESSION: Unchanged from initial note. [place] level is 0.8. PLAN: Continue current psychotropics. Reviewed drug interactions. Risk/benefit ratio favors no further change. MAN Chantell NANCE MD DR: ELLIS/fernando JOB#: [id number] / [id number]
--- NOTE | 2017-04-17 00:09 | PN ---
DATE: 04/15/2017 PSYCHIATRIC PROGRESS NOTE This late entry 04/15/2017 covers elements not covered in my initial note of 04/15/2017. SUBJECTIVE: The patient was seen individually evening of 04/15/2017 staffed at a treatment team meeting morning of 04/15/2017. Reviewed the patient's history, diagnosis, progress, current medications, discharge plans. She has been less delusional, slept 7-3/4 hours the previous evening, attending groups, less withdrawn. She has decided to move in with her ex- and the ex-'s home post-discharge. REVIEW OF SYSTEMS: She has vague somatic symptoms, but no specific CV, , eye, ENT or pulmonary system symptoms on review. MENTAL STATUS EXAM: Reasonably oriented. Speech is coherent, abstraction fair, computation somewhat impaired, language function intact. Attention span short, but improving. No active psychotic symptoms, suicidal, or homicidal ideation. LABORATORIES: Reviewed. IMPRESSION: Unchanged from initial note. PLAN: Continue current psychotropics. [place] level is 0.8. [place] carbonate 300 mg a.m. and 450 at bedtime, Risperdal 2.5 mg at bedtime. Rest of the psychotropics as mentioned in my initial note. Review drug interactions, risk/benefit ratio favors no further change. MAN Chantell NANCE MD DR: ELLIS/fernando JOB#: [id number] / [id number]
[2017-04-17] MEDS: traZODone 100 MG TABLET. PO PRN (01:49)
[2017-04-17 06:01] VITALS: BP 112/77
[2017-04-17] MEDS: LEVOTHYROXINE 25 MCG TABLET. PO SCH (06:03)
[2017-04-17] MEDS: PANTOPRAZOLE 40 MG TABLET. PO SCH ×2 (07:47→19:44)
[2017-04-17] MEDS: METOPROLOL TART IMMED RELEASE 25 MG TABLET PO SCH ×2 (07:47→19:43)
[2017-04-17] MEDS: MAGNESIUM OXIDE 400 MG TABLET PO SCH ×3 (07:47→19:45)
[2017-04-17] MEDS: cycloSPORINE 0.05% OPTH 1 DROP DROPERETTE OU SCH ×2 (07:47→19:42)
[2017-04-17] MEDS: ACETAMINOPHEN 325 MG TABLET PO SCH ×3 (07:48→19:42)
[2017-04-17] MEDS: POTASSIUM CHLORIDE 10 MEQ TABLET.ER. PO SCH (07:48)
[2017-04-17] MEDS: DOCUSATE SODIUM 100 MG CAPSULE PO SCH ×2 (07:48→19:44)
[2017-04-17] MEDS: CETIRIZINE HCL 10 MG TABLET PO SCH (07:48)
[2017-04-17] MEDS: LITHIUM CARBONATE 300 MG TABLET PO SCH (07:50)
[2017-04-17] MEDS: DOCUSATE CALCIUM 240 MG CAPSULE PO SCH (07:50)
[2017-04-17] MEDS: clonazePAM 0.5 MG TABLET PO SCH ×2 (07:50→13:26)
--- NOTE | 2017-04-17 12:40 | PN ---
DATE: 04/16/2017 PSYCHIATRIC PROGRESS NOTE This late entry for 04/16/2017 elements not covered in my initial note of 04/16/2017. SUBJECTIVE: I met with the patient evening of 04/16/2017. Overall, per nursing report, she has had a better day, more social and interactive. As I met with her, she complains of constipation, states stool softeners helped significantly in the past and we will start her on Surfak 240 mg a day. She slept 5-1/4 hours previous evening. Reportedly, her ex- visited and visit went well. REVIEW OF SYSTEMS: No CV, , pulmonary, eye system symptoms on review other than the constipation. MENTAL STATUS EXAM: Reasonably oriented. Speech coherent, still somewhat anxious. Abstraction fair, computation impaired, language function intact. Mood and affect less labile. LABORATORY DATA: Reviewed. IMPRESSION: Unchanged from initial note. PLAN: Continue current psychotropics. Reviewed drug interactions, risk/benefit ratio favors no further change. EULALIA NANCE MD DR: ELLIS/fernando JOB#: [id number] / [id number]
[2017-04-17] MEDS: CYANOCOBALAMIN (VITAMIN B-12) 1,000 MCG TABLET. PO SCH (13:27)
[2017-04-17 16:07] VITALS: BP 117/73
[2017-04-17] MEDS: RIVAROXABAN 10 MG TABLET. PO SCH (16:56)
[2017-04-17] MEDS: ATORVASTATIN CALCIUM 20 MG TABLET PO SCH (19:43)
[2017-04-17] MEDS: traZODone 100 MG TABLET. PO SCH (19:43)
[2017-04-17] MEDS: MIRTAZAPINE 7.5 MG TABLET. PO SCH (19:43)
[2017-04-17] MEDS: LITHIUM CARBONATE 150 MG CAPSULE. PO SCH (19:44)
[2017-04-17] MEDS: MONTELUKAST 10 MG TABLET. PO SCH (19:44)
[2017-04-17] MEDS: DOXEPIN HCL 25 MG CAPSULE PO SCH (19:45)
[2017-04-17] MEDS: QUEtiapine 100 MG TABLET. PO SCH (19:45)
[2017-04-17] MEDS: risperiDONE 2 MG TABLET. PO SCH (19:45)
--- NOTE | 2017-04-17 22:51 | PDOC ---
Exam Dixon Demential Exam: Dixon Note: Please also refer to the separate dictated note~for this date of service dictated separately.~Patient seen individually. Discussed the patient with Nursing staff reviewed the chart.~Reviewed interim history and current functioning. Reviewed vital signs,~Labs/ Radiology~and current medications noted below. Continue current treatment with the changes noted in the dictated addendum note Assessment: Vital Signs: Vital Signs Date Time Temp Pulse Resp B/P (MAP) Pulse Ox O2 Delivery O2 Flow Rate FiO2 04/17/17 19:43 60 117/73 04/17/17 16:07 97.3 18 99 04/17/17 06:01 Room Air I&O Intake and Output 04/18/17 07:00 Intake Total 1200 ml Balance 1200 ml Intake Oral 1200 ml Current Medications: Meds: Current Medications Acetaminophen (Tylenol) 650 mg PRN Q6HRS PRN PO PAIN / TEMP Last administered on 04/15/17 17:00; Start 03/25/17 at 16:45 Multi-Ingredient Ointment (Analgesic [place]) 1 zeus PRN QID PRN TP MUSCLE PAIN Last administered on 04/11/17 06:10; Start 03/25/17 at 16:45 Al Hydroxide/Mg Hydroxide (Mylanta Plus Xs) 15 ml PRN AFTMEALHC PRN PO DYSPEPSIA Last administered on 04/02/17 03:58; Start 03/25/17 at 16:45 Magnesium Hydroxide (Milk Of Magnesia) 2,400 mg PRN QHS PRN PO CONSTIPATION Last administered on 04/13/17 14:31; Start 03/25/17 at 16:45 Acetaminophen (Tylenol) 500 mg PRN Q6HRS PO ; Start 03/25/17 at 16:45; Stop at 13:32; Status DC Atorvastatin Calcium (Lipitor) 20 mg QHS PO Last administered on 04/17/17 19: 43; Start 03/25/17 at 21:00 Docusate Sodium (Colace) 100 mg BID PO Last administered on 04/17/17 19:44; Start 03/25/17 at 21:00 Levothyroxine Sodium (Synthroid) 25 mcg DAILY06 PO Last administered on 06:03; Start 03/26/17 at 06:00 Metoprolol Tartrate (Lopressor) 25 mg BID PO Last administered on 04/17/17 19: 43; Start 03/25/17 at 21:00 Montelukast Sodium (Singulair) 10 mg HS PO Last administered on 04/17/17 19:44 ; Start 03/25/17 at 21:00 Pantoprazole Sodium (Protonix) 40 mg BID PO Last administered on 04/17/17 19: 44; Start 03/25/17 at 21:00 Risperidone (RisperDAL) 2 mg QHS PO Last administered on 03/28/17 19:32; Start 03/25/17 at 21:00; Stop 03/29/17 at 18:25; Status DC Rivaroxaban (Xarelto) 15 mg DAILYWSUP PO Last administered on 03/25/17 20:36; Start 03/25/17 at 17:00; Stop 03/26/17 at 18:03; Status DC Trazodone HCl (Desyrel) 100 mg PRN QHS PRN PO INSOMNIA; Start 03/25/17 at 16:45 ; Stop 03/26/17 at 18:44; Status DC Diltiazem HCl (Cardizem 24hr Cd) 240 mg DAILY PO Last administered on 07:48; Start 03/26/17 at 09:00 [place] Carbonate 150 mg QHS PO Last administered on 03/26/17 19:44; Start at 21:00; Stop 03/27/17 at 19:13; Status DC [place] Carbonate 300 mg DAILY PO Last administered on 04/17/17 07:50; Start 03/25/17 at 17:00 Potassium Chloride (Klor-Con) 10 meq DAILYWBKFT PO Last administered on 07:48; Start 03/26/17 at 08:00 Olanzapine (ZyPREXA ZYDIS) 2.5 mg PRN Q2HR PRN PO PSYCHOSIS/AGITATION Last administered on 04/16/17 03:34; Start 03/26/17 at 14:30 Vitamin D (Vitamin D3) 50,000 unit WEEKLY PO Last administered on 04/16/17 07: 55; Start 04/02/17 at 09:00 Magnesium Oxide (Magnesium Oxide) 400 mg TID PO Last administered on 04/17/17 19:45; Start 03/26/17 at 21:00 Rivaroxaban (Xarelto) 20 mg DAILYWSUP PO Last administered on 04/17/17 16:56; Start 03/27/17 at 08:00 Trazodone HCl (Desyrel) 100 mg QHS PO Last administered on 03/27/17 20:20; Start 03/26/17 at 21:00; Stop 03/28/17 at 18:59; Status DC Trazodone HCl (Desyrel) 100 mg PRN QHS PRN PO INSOMNIA; Start 03/26/17 at 21:00 ; Stop 03/28/17 at 18:59; Status DC [place] Carbonate 300 mg QHS PO Last administered on 04/03/17 19:28; Start at 21:00; Stop 04/03/17 at 19:51; Status DC Trazodone HCl (Desyrel) 150 mg PRN QHS PRN PO INSOMNIA Last administered on 01:49; Start 03/28/17 at 21:00 Trazodone HCl (Desyrel) 150 mg QHS PO Last administered on 04/17/17 19:43; Start 03/28/17 at 21:00 Risperidone (RisperDAL) 2 mg QHS PO Last administered on 04/13/17 20:17; Start 03/29/17 at 21:00; Stop 04/14/17 at 15:38; Status DC Risperidone (RisperDAL) 0.5 mg HS PO Last administered on 03/30/17 19:47; Start 03/29/17 at 21:00; Stop 03/31/17 at 18:47; Status DC Mirtazapine (Remeron) 7.5 mg QHS PO Last administered on 04/17/17 19:43; Start 03/30/17 at 21:00 Quetiapine Fumarate (SEROquel) 50 mg QHS PO Last administered on 04/01/17 19: 47; Start 03/31/17 at 21:00; Stop 04/02/17 at 09:00; Status DC Quetiapine Fumarate (SEROquel) 100 mg HS PO Last administered on 04/17/17 19: 45; Start 04/02/17 at 21:00 Clonazepam (KlonoPIN) 0.25 mg BID92 PO Last administered on 04/17/17 13:26; Start 04/01/17 at 14:00 Fluvoxamine Maleate (Luvox) 25 mg HS PO Last administered on 04/04/17 19:48; Start 04/01/17 at 21:00; Stop 04/05/17 at 17:41; Status DC Cyclosporine (Restasis) 1 drop BID OU Last administered on 04/17/17 19:42; Start 04/02/17 at 21:00 [place] Carbonate 450 mg QHS PO Last administered on 04/17/17 19:44; Start at 21:00 Fluvoxamine Maleate (Luvox) 50 mg HS PO Last administered on 04/17/17 19:45; Start 04/05/17 at 21:00 Zolpidem Tartrate (Ambien) 5 mg PRN QHS PRN PO INSOMNIA Last administered on 23:49; Start 04/10/17 at 20:00; Stop 04/11/17 at 19:36; Status DC Temazepam (Restoril) 15 mg PRN QHS PRN PO INSOMNIA, MAY REPEAT X1 Last administered on 04/11/17 20:39; Start 04/11/17 at 19:45; Stop 04/12/17 at 18:01 ; Status DC Doxepin HCl (SINEquan) 50 mg QHS PO Last administered on 04/17/17 19:45; Start 04/12/17 at 21:00 Acetaminophen (Tylenol) 650 mg [id number] PO Last administered on 04/14/17 13:22; Start 04/14/17 at 14:00; Stop 04/14/17 at 14:00; Status DC Acetaminophen (Tylenol) 650 mg TID PO Last administered on 04/17/17 19:42; Start 04/14/17 at 14:00 Risperidone (RisperDAL) 2.5 mg QHS PO Last administered on 04/17/17 19:45; Start 04/14/17 at 21:00 Cyanocobalamin (Vitamin B-12) 1,000 mcg DAILYBFRLUN PO Last administered on 13:27; Start 04/16/17 at 11:30 Cetirizine HCl (ZyrTEC) 10 mg DAILY PO Last administered on 04/17/17 07:48; Start 04/16/17 at 14:15 Docusate Calcium (Surfak) 240 mg DAILY PO Last administered on 04/17/17 07:50 ; Start 04/17/17 at 09:00 Active Scripts Active Reported Trazodone Hcl 100 Mg Tablet 100 Mg PO PRN QHS Risperdal (Risperidone) 2 Mg Tablet 2 Mg PO QHS Xarelto (Rivaroxaban) 10 Mg Tablet 20 Mg PO DAILYWSUP Metoprolol Tartrate 25 Mg Tablet 25 Mg PO BID [place] Carbonate 150 Mg Capsule 150 Mg PO HS Acetaminophen 500 Mg Tablet 500 Mg PO PRN Q6HRS [place] Carbonate 300 Mg Tablet 300 Mg PO DAILY Pantoprazole Sodium 40 Mg Tablet.dr 40 Mg PO BID Doc-Q-Lace (Docusate Sodium) 100 Mg Capsule 100 Mg PO BID Potassium Chloride 10 Meq Tablet.er 10 Meq PO DAILYWBKFT Diltiazem 24Hr ER (Diltiazem HCl) 240 Mg Tab.er.24h 240 Mg PO DAILY Atorvastatin Calcium 20 Mg Tablet 20 Mg PO QHS NOT GIVEN IN THE HOSPITAL NEXT DOSE DUE: DATE: RESTART TODAY TIME: AT BEDTIME Levothyroxine Sodium 25 Mcg Tablet 25 Mcg PO DAILY07 Singulair Tablet (Montelukast Sodium) 10 Mg Tablet 10 Mg PO HS Diagnosis: Problems: (1) Anxiety disorder (2) Impulse control disorder (3) Delusional disorder (4) Bipolar affective, mixed, sev w/ psych (5) Bipolar affective, mixed, sev w/ psych (6) Dementia, vascular, with depression (7) Dementia, vascular, with delusions (8) Bipolar affective disorder EULALIA NANCE MD Apr 17, 2017 22:51
[2017-04-18] MEDS: ACETAMINOPHEN 325 MG TABLET PO PRN (04:11)
[2017-04-18] MEDS: LEVOTHYROXINE 25 MCG TABLET. PO SCH (05:05)
[2017-04-18 05:46] VITALS: BP 100/70
[2017-04-18] MEDS: DOCUSATE CALCIUM 240 MG CAPSULE PO SCH (07:20)
[2017-04-18] MEDS: DOCUSATE SODIUM 100 MG CAPSULE PO SCH ×2 (07:21→19:42)
[2017-04-18] MEDS: PANTOPRAZOLE 40 MG TABLET. PO SCH ×2 (07:21→19:42)
[2017-04-18] MEDS: MAGNESIUM OXIDE 400 MG TABLET PO SCH ×3 (07:21→19:43)
[2017-04-18] MEDS: cycloSPORINE 0.05% OPTH 1 DROP DROPERETTE OU SCH ×2 (07:22→19:44)
[2017-04-18] MEDS: CETIRIZINE HCL 10 MG TABLET PO SCH (07:22)
[2017-04-18] MEDS: ACETAMINOPHEN 325 MG TABLET PO SCH ×3 (07:22→19:44)
[2017-04-18] MEDS: LITHIUM CARBONATE 300 MG TABLET PO SCH (07:22)
[2017-04-18] MEDS: POTASSIUM CHLORIDE 10 MEQ TABLET.ER. PO SCH (07:22)
[2017-04-18] MEDS: METOPROLOL TART IMMED RELEASE 25 MG TABLET PO SCH ×2 (07:28→19:44)
[2017-04-18] MEDS: clonazePAM 0.5 MG TABLET PO SCH ×2 (07:31→12:57)
--- NOTE | 2017-04-18 10:06 | PN ---
DATE: 04/17/2017 PSYCHIATRIC PROGRESS NOTE SUBJECTIVE: This late entry 04/17/2017, covers elements not covered in my initial note of 04/17/2017, met with the patient evening of 04/17/2017. The patient has been pleasant, less anxious, seems to relate to another patient reasonably well on the unit. Her ex- visited her at noon, the visit went well. She does complain of some constipation. We have added Surfak for this. REVIEW OF SYSTEMS: No CV, , pulmonary, eye system symptoms on review. MENTAL STATUS EXAM: Oriented to herself and situation. Speech is coherent, abstraction fair, computation impaired, language function intact. Mood and affect showing improvement. LABORATORY DATA: Reviewed. IMPRESSION: Unchanged from initial note. PLAN: Continue current psychotropics. Reviewed drug interactions, risk/benefit ratio favors no further change. MAN Chantell NANCE MD DR: ELLIS/fernando JOB#: [id number] / [id number]
[2017-04-18] MEDS ORDERED: ACET325T9 PO ×2 (10:42→10:43)
[2017-04-18] MEDS ORDERED: CETI10TA16 PO (10:45)
[2017-04-18] MEDS ORDERED: CHOL500021 PO (10:46)
[2017-04-18] MEDS ORDERED: DOCU240C30 PO (10:47)
[2017-04-18] MEDS ORDERED: CYAN10005 PO (10:47)
[2017-04-18] MEDS ORDERED: DOXE50CA PO (10:52)
[2017-04-18] MEDS ORDERED: MAG355OR12 PO (10:53)
[2017-04-18] MEDS ORDERED: MAGN2400 PO (10:53)
[2017-04-18] MEDS ORDERED: MENT113G6 TP (10:54)
[2017-04-18] MEDS ORDERED: MAGN400T3 PO (10:55)
[2017-04-18] MEDS ORDERED: MIRT15TA3 PO (10:56)
[2017-04-18] MEDS ORDERED: OLAN5TAB9 PO (10:57)
[2017-04-18] MEDS ORDERED: QUET100T4 PO (10:59)
[2017-04-18] MEDS ORDERED: CLON0.5T3 PO (11:00)
[2017-04-18] MEDS ORDERED: CYCL1DRO EACHEYE (11:01)
[2017-04-18] MEDS ORDERED: FLUV50TA2 PO (11:02)
[2017-04-18] MEDS ORDERED: TRAZ150T49 PO (11:03)
[2017-04-18] MEDS: CYANOCOBALAMIN (VITAMIN B-12) 1,000 MCG TABLET. PO SCH (12:58)
[2017-04-18 15:45] VITALS: BP 110/67
[2017-04-18] MEDS: RIVAROXABAN 10 MG TABLET. PO SCH (17:44)
[2017-04-18] MEDS: MIRTAZAPINE 7.5 MG TABLET. PO SCH (19:42)
[2017-04-18] MEDS: risperiDONE 2 MG TABLET. PO SCH (19:42)
[2017-04-18] MEDS: traZODone 100 MG TABLET. PO SCH (19:43)
[2017-04-18] MEDS: LITHIUM CARBONATE 150 MG CAPSULE. PO SCH (19:43)
[2017-04-18] MEDS: ATORVASTATIN CALCIUM 20 MG TABLET PO SCH (19:43)
[2017-04-18] MEDS: QUEtiapine 100 MG TABLET. PO SCH (19:44)
[2017-04-18] MEDS: DOXEPIN HCL 25 MG CAPSULE PO SCH (19:44)
[2017-04-18] MEDS: MONTELUKAST 10 MG TABLET. PO SCH (19:44)
--- NOTE | 2017-04-18 20:31 | PDOC ---
Exam Dixon Demential Exam: Dixon Note: Please also refer to the separate dictated note~for this date of service dictated separately.~Patient seen individually. Discussed the patient with Nursing staff reviewed the chart.~Reviewed interim history and current functioning. Reviewed vital signs,~Labs/ Radiology~and current medications noted below. Continue current treatment with the changes noted in the dictated addendum note Assessment: Vital Signs: Vital Signs Date Time Temp Pulse Resp B/P (MAP) Pulse Ox O2 Delivery O2 Flow Rate FiO2 04/18/17 19:44 62 110/67 04/18/17 15:45 98.4 20 97 04/17/17 06:01 Room Air I&O Intake and Output 04/19/17 07:00 Intake Total 1320 ml Balance 1320 ml Intake Oral 1320 ml Current Medications: Meds: Current Medications Acetaminophen (Tylenol) 650 mg PRN Q6HRS PRN PO PAIN / TEMP Last administered on 04/18/17 04:11; Start 03/25/17 at 16:45 Multi-Ingredient Ointment (Analgesic [place]) 1 zeus PRN QID PRN TP MUSCLE PAIN Last administered on 04/11/17 06:10; Start 03/25/17 at 16:45 Al Hydroxide/Mg Hydroxide (Mylanta Plus Xs) 15 ml PRN AFTMEALHC PRN PO DYSPEPSIA Last administered on 04/02/17 03:58; Start 03/25/17 at 16:45 Magnesium Hydroxide (Milk Of Magnesia) 2,400 mg PRN QHS PRN PO CONSTIPATION Last administered on 04/13/17 14:31; Start 03/25/17 at 16:45 Acetaminophen (Tylenol) 500 mg PRN Q6HRS PO ; Start 03/25/17 at 16:45; Stop at 13:32; Status DC Atorvastatin Calcium (Lipitor) 20 mg QHS PO Last administered on 04/18/17 19: 43; Start 03/25/17 at 21:00 Docusate Sodium (Colace) 100 mg BID PO Last administered on 04/18/17 19:42; Start 03/25/17 at 21:00 Levothyroxine Sodium (Synthroid) 25 mcg DAILY06 PO Last administered on 05:05; Start 03/26/17 at 06:00 Metoprolol Tartrate (Lopressor) 25 mg BID PO Last administered on 04/18/17 19: 44; Start 03/25/17 at 21:00 Montelukast Sodium (Singulair) 10 mg HS PO Last administered on 04/18/17 19:44 ; Start 03/25/17 at 21:00 Pantoprazole Sodium (Protonix) 40 mg BID PO Last administered on 04/18/17 19: 42; Start 03/25/17 at 21:00 Risperidone (RisperDAL) 2 mg QHS PO Last administered on 03/28/17 19:32; Start 03/25/17 at 21:00; Stop 03/29/17 at 18:25; Status DC Rivaroxaban (Xarelto) 15 mg DAILYWSUP PO Last administered on 03/25/17 20:36; Start 03/25/17 at 17:00; Stop 03/26/17 at 18:03; Status DC Trazodone HCl (Desyrel) 100 mg PRN QHS PRN PO INSOMNIA; Start 03/25/17 at 16:45 ; Stop 03/26/17 at 18:44; Status DC Diltiazem HCl (Cardizem 24hr Cd) 240 mg DAILY PO Last administered on 07:48; Start 03/26/17 at 09:00 [place] Carbonate 150 mg QHS PO Last administered on 03/26/17 19:44; Start at 21:00; Stop 03/27/17 at 19:13; Status DC [place] Carbonate 300 mg DAILY PO Last administered on 04/18/17 07:22; Start 03/25/17 at 17:00 Potassium Chloride (Klor-Con) 10 meq DAILYWBKFT PO Last administered on 07:22; Start 03/26/17 at 08:00 Olanzapine (ZyPREXA ZYDIS) 2.5 mg PRN Q2HR PRN PO PSYCHOSIS/AGITATION Last administered on 04/16/17 03:34; Start 03/26/17 at 14:30 Vitamin D (Vitamin D3) 50,000 unit WEEKLY PO Last administered on 04/16/17 07: 55; Start 04/02/17 at 09:00 Magnesium Oxide (Magnesium Oxide) 400 mg TID PO Last administered on 04/18/17 19:43; Start 03/26/17 at 21:00 Rivaroxaban (Xarelto) 20 mg DAILYWSUP PO Last administered on 04/18/17 17:44; Start 03/27/17 at 08:00 Trazodone HCl (Desyrel) 100 mg QHS PO Last administered on 03/27/17 20:20; Start 03/26/17 at 21:00; Stop 03/28/17 at 18:59; Status DC Trazodone HCl (Desyrel) 100 mg PRN QHS PRN PO INSOMNIA; Start 03/26/17 at 21:00 ; Stop 03/28/17 at 18:59; Status DC [place] Carbonate 300 mg QHS PO Last administered on 04/03/17 19:28; Start at 21:00; Stop 04/03/17 at 19:51; Status DC Trazodone HCl (Desyrel) 150 mg PRN QHS PRN PO INSOMNIA Last administered on 01:49; Start 03/28/17 at 21:00 Trazodone HCl (Desyrel) 150 mg QHS PO Last administered on 04/18/17 19:43; Start 03/28/17 at 21:00 Risperidone (RisperDAL) 2 mg QHS PO Last administered on 04/13/17 20:17; Start 03/29/17 at 21:00; Stop 04/14/17 at 15:38; Status DC Risperidone (RisperDAL) 0.5 mg HS PO Last administered on 03/30/17 19:47; Start 03/29/17 at 21:00; Stop 03/31/17 at 18:47; Status DC Mirtazapine (Remeron) 7.5 mg QHS PO Last administered on 04/18/17 19:42; Start 03/30/17 at 21:00 Quetiapine Fumarate (SEROquel) 50 mg QHS PO Last administered on 04/01/17 19: 47; Start 03/31/17 at 21:00; Stop 04/02/17 at 09:00; Status DC Quetiapine Fumarate (SEROquel) 100 mg HS PO Last administered on 04/18/17 19: 44; Start 04/02/17 at 21:00 Clonazepam (KlonoPIN) 0.25 mg BID92 PO Last administered on 04/18/17 12:57; Start 04/01/17 at 14:00 Fluvoxamine Maleate (Luvox) 25 mg HS PO Last administered on 04/04/17 19:48; Start 04/01/17 at 21:00; Stop 04/05/17 at 17:41; Status DC Cyclosporine (Restasis) 1 drop BID OU Last administered on 04/18/17 19:44; Start 04/02/17 at 21:00 [place] Carbonate 450 mg QHS PO Last administered on 04/18/17 19:43; Start at 21:00 Fluvoxamine Maleate (Luvox) 50 mg HS PO Last administered on 04/18/17 19:43; Start 04/05/17 at 21:00 Zolpidem Tartrate (Ambien) 5 mg PRN QHS PRN PO INSOMNIA Last administered on 23:49; Start 04/10/17 at 20:00; Stop 04/11/17 at 19:36; Status DC Temazepam (Restoril) 15 mg PRN QHS PRN PO INSOMNIA, MAY REPEAT X1 Last administered on 04/11/17 20:39; Start 04/11/17 at 19:45; Stop 04/12/17 at 18:01 ; Status DC Doxepin HCl (SINEquan) 50 mg QHS PO Last administered on 04/18/17 19:44; Start 04/12/17 at 21:00 Acetaminophen (Tylenol) 650 mg [id number] PO Last administered on 04/14/17 13:22; Start 04/14/17 at 14:00; Stop 04/14/17 at 14:00; Status DC Acetaminophen (Tylenol) 650 mg TID PO Last administered on 04/18/17 19:44; Start 04/14/17 at 14:00 Risperidone (RisperDAL) 2.5 mg QHS PO Last administered on 04/18/17 19:42; Start 04/14/17 at 21:00 Cyanocobalamin (Vitamin B-12) 1,000 mcg DAILYBFRLUN PO Last administered on 12:58; Start 04/16/17 at 11:30 Cetirizine HCl (ZyrTEC) 10 mg DAILY PO Last administered on 04/18/17 07:22; Start 04/16/17 at 14:15 Docusate Calcium (Surfak) 240 mg DAILY PO Last administered on 04/18/17 07:20 ; Start 04/17/17 at 09:00 Active Scripts Active Reported Trazodone Hcl 150 Mg Tablet 150 Mg PO Fluvoxamine Maleate 50 Mg Tablet 50 Mg PO HS Restasis (Cyclosporine) 1 Each [place] 1 Drop EACHEYE BID Clonazepam 0.5 Mg Tablet 0.25 Mg PO BID92 Seroquel (Quetiapine Fumarate) 100 Mg Tablet 100 Mg PO HS Olanzapine 5 Mg Tablet 2.5 Mg PO PRN Q2HR PRN Mirtazapine 15 Mg Tablet 7.5 Mg PO HS Magnesium Oxide 400 Mg Tablet 400 Mg PO TID [place] (Menthol) 113 Gm Gel..gram. 1 Gm TP PRN QID PRN Milk Of Magnesia (Magnesium Hydroxide) 2,400 Mg/10 Ml Oral.susp 10 Ml PO PRN QHS PRN Maalox Maximum Strength Susp (Mag Hydrox/Al Hydrox/Simeth) 355 Ml Oral.susp 15 Ml PO PRN AFTMEALHC PRN Doxepin Hcl 50 Mg Capsule 50 Mg PO HS Surfak (Docusate Calcium) 240 Mg Capsule 240 Mg PO DAILY Vitamin B-12 (Cyanocobalamin (Vitamin B-12)) 1,000 Mcg Tablet 1,000 Mcg PO DAILYWLUN D3-50 (Cholecalciferol (Vitamin D3)) 50,000 Unit Capsule 50,000 Unit PO WEEKLY Cetirizine Hcl 10 Mg Tablet 10 Mg PO DAILY Tylenol (Acetaminophen) 325 Mg Tablet 650 Mg PO PRN Q6HRS PRN Tylenol (Acetaminophen) 325 Mg Tablet 650 Mg PO TID Trazodone Hcl 100 Mg Tablet 100 Mg PO PRN QHS Risperdal (Risperidone) 2 Mg Tablet 2 Mg PO QHS Xarelto (Rivaroxaban) 10 Mg Tablet 20 Mg PO DAILYWSUP Metoprolol Tartrate 25 Mg Tablet 25 Mg PO BID [place] Carbonate 150 Mg Capsule 150 Mg PO HS Acetaminophen 500 Mg Tablet 500 Mg PO PRN Q6HRS [place] Carbonate 300 Mg Tablet 300 Mg PO DAILY Pantoprazole Sodium 40 Mg Tablet.dr 40 Mg PO BID Doc-Q-Lace (Docusate Sodium) 100 Mg Capsule 100 Mg PO BID Potassium Chloride 10 Meq Tablet.er 10 Meq PO DAILYWBKFT Diltiazem 24Hr ER (Diltiazem HCl) 240 Mg Tab.er.24h 240 Mg PO DAILY Atorvastatin Calcium 20 Mg Tablet 20 Mg PO QHS NOT GIVEN IN THE HOSPITAL NEXT DOSE DUE: DATE: RESTART TODAY TIME: AT BEDTIME Levothyroxine Sodium 25 Mcg Tablet 25 Mcg PO DAILY07 Singulair Tablet (Montelukast Sodium) 10 Mg Tablet 10 Mg PO HS Diagnosis: Problems: (1) Anxiety disorder (2) Anxiety disorder (3) Bipolar affective disorder (4) Bipolar affective disorder (5) Impulse control disorder (6) Delusional disorder (7) Bipolar affective, mixed, sev w/ psych (8) Bipolar affective, mixed, sev w/ psych (9) Dementia, vascular, with depression (10) Dementia, vascular, with delusions EULALIA NANCE MD Apr 18, 2017 20:31
[2017-04-18] MEDS ORDERED: MIRT7.5T8 PO (21:26)
[2017-04-18] MEDS ORDERED: OLAN5TAB5 PO (21:27)
[2017-04-18] MEDS: traZODone 100 MG TABLET. PO PRN (21:44)
[2017-04-19] MEDS: LEVOTHYROXINE 25 MCG TABLET. PO SCH (05:23)
[2017-04-19 06:17] VITALS: BP 106/66
[2017-04-19] MEDS: cycloSPORINE 0.05% OPTH 1 DROP DROPERETTE OU SCH (08:13)
[2017-04-19] MEDS: DOCUSATE SODIUM 100 MG CAPSULE PO SCH (08:13)
[2017-04-19] MEDS: DOCUSATE CALCIUM 240 MG CAPSULE PO SCH (08:13)
[2017-04-19] MEDS: CETIRIZINE HCL 10 MG TABLET PO SCH (08:13)
[2017-04-19] MEDS: ACETAMINOPHEN 325 MG TABLET PO SCH (08:14)
[2017-04-19] MEDS: CYANOCOBALAMIN (VITAMIN B-12) 1,000 MCG TABLET. PO SCH (08:14)
[2017-04-19] MEDS: PANTOPRAZOLE 40 MG TABLET. PO SCH (08:14)
[2017-04-19] MEDS: METOPROLOL TART IMMED RELEASE 25 MG TABLET PO SCH (08:14)
[2017-04-19] MEDS: MAGNESIUM OXIDE 400 MG TABLET PO SCH (08:14)
[2017-04-19] MEDS: LITHIUM CARBONATE 300 MG TABLET PO SCH (08:14)
[2017-04-19 08:15] VITALS: BP 106/66
[2017-04-19] MEDS: clonazePAM 0.5 MG TABLET PO SCH (08:17)
[2017-04-19] MEDS: POTASSIUM CHLORIDE 10 MEQ TABLET.ER. PO SCH (08:17)
[2017-04-19] MEDS ORDERED: DOCU100C28 PO (08:50)
[2017-04-19] MEDS ORDERED: RISP0.5T3 PO (09:07)
[2017-04-19] MEDS ORDERED: TRAZ150T49 PO (09:10)
[2017-04-19] MEDS ORDERED: RIVA20TA2 PO (09:10)
--- NOTE | 2017-04-19 10:04 | PN ---
DATE: 04/18/2017 PSYCHIATRIC PROGRESS NOTE This late entry date of service 04/18/2017 covers elements, not covered in my initial note of 04/18/2017. SUBJECTIVE: I met with the patient individually evening of 04/18/2017. Overall, the patient is compliant with medications, less delusional, less somatically preoccupied. REVIEW OF SYSTEMS: No CV, , pulmonary, eye, ENT system symptoms on review. Complains of some constipation. MENTAL STATUS EXAM: Reasonably oriented. Speech is coherent, abstraction fair, computation impaired, language function intact. Mood and affect showing improvement. No suicidal or homicidal ideation. LABORATORY DATA: Reviewed. IMPRESSION: Unchanged from initial note. PLAN: Continue current psychotropics. Reviewed drug contractions. Risk/benefit ratio favors no further change. MAN Chantell NANCE MD DR: ELLIS/fernando JOB#: [id number] / [id number]
--- NOTE | 2017-04-19 14:14 | PDOC ---
Exam Dixon Demential Exam: Dixon Note: Please also refer to the separate dictated note~for this date of service dictated separately.~Patient seen individually. Discussed the patient with Nursing staff reviewed the chart.~Reviewed interim history and current functioning. Reviewed vital signs,~Labs/ Radiology~and current medications noted below. Continue current treatment with the changes noted in the dictated addendum note Assessment: Vital Signs: Vital Signs Date Time Temp Pulse Resp B/P (MAP) Pulse Ox O2 Delivery O2 Flow Rate FiO2 04/19/17 08:15 72 106/66 04/19/17 06:17 98.2 24 95 04/17/17 06:01 Room Air I&O Intake and Output 04/20/17 06:59 Intake Total 240 ml Balance 240 ml Intake Oral 240 ml # Bowel Movements 1 Current Medications: Meds: Current Medications Acetaminophen (Tylenol) 650 mg PRN Q6HRS PRN PO PAIN / TEMP Last administered on 04/18/17 04:11; Start 03/25/17 at 16:45; Stop 04/19/17 at 10:16; Status DC Multi-Ingredient Ointment (Analgesic [place]) 1 zeus PRN QID PRN TP MUSCLE PAIN Last administered on 04/11/17 06:10; Start 03/25/17 at 16:45; Stop 04/19/17 at 10:16; Status DC Al Hydroxide/Mg Hydroxide (Mylanta Plus Xs) 15 ml PRN AFTMEALHC PRN PO DYSPEPSIA Last administered on 04/02/17 03:58; Start 03/25/17 at 16:45; Stop 04/19/17 at 10:16; Status DC Magnesium Hydroxide (Milk Of Magnesia) 2,400 mg PRN QHS PRN PO CONSTIPATION Last administered on 04/13/17 14:31; Start 03/25/17 at 16:45; Stop 04/19/17 at 10:16; Status DC Acetaminophen (Tylenol) 500 mg PRN Q6HRS PO ; Start 03/25/17 at 16:45; Stop at 13:32; Status DC Atorvastatin Calcium (Lipitor) 20 mg QHS PO Last administered on 04/18/17 19: 43; Start 03/25/17 at 21:00; Stop 04/19/17 at 10:16; Status DC Docusate Sodium (Colace) 100 mg BID PO Last administered on 04/19/17 08:13; Start 03/25/17 at 21:00; Stop 04/19/17 at 10:16; Status DC Levothyroxine Sodium (Synthroid) 25 mcg DAILY06 PO Last administered on 05:23; Start 03/26/17 at 06:00; Stop 04/19/17 at 10:16; Status DC Metoprolol Tartrate (Lopressor) 25 mg BID PO Last administered on 04/19/17 08: 14; Start 03/25/17 at 21:00; Stop 04/19/17 at 10:16; Status DC Montelukast Sodium (Singulair) 10 mg HS PO Last administered on 04/18/17 19:44 ; Start 03/25/17 at 21:00; Stop 04/19/17 at 10:16; Status DC Pantoprazole Sodium (Protonix) 40 mg BID PO Last administered on 04/19/17 08: 14; Start 03/25/17 at 21:00; Stop 04/19/17 at 10:16; Status DC Risperidone (RisperDAL) 2 mg QHS PO Last administered on 03/28/17 19:32; Start 03/25/17 at 21:00; Stop 03/29/17 at 18:25; Status DC Rivaroxaban (Xarelto) 15 mg DAILYWSUP PO Last administered on 03/25/17 20:36; Start 03/25/17 at 17:00; Stop 03/26/17 at 18:03; Status DC Trazodone HCl (Desyrel) 100 mg PRN QHS PRN PO INSOMNIA; Start 03/25/17 at 16:45 ; Stop 03/26/17 at 18:44; Status DC Diltiazem HCl (Cardizem 24hr Cd) 240 mg DAILY PO Last administered on 08:15; Start 03/26/17 at 09:00; Stop 04/19/17 at 10:16; Status DC [facility] Carbonate 150 mg QHS PO Last administered on 03/26/17 19:44; Start at 21:00; Stop 03/27/17 at 19:13; Status DC [facility] Carbonate 300 mg DAILY PO Last administered on 04/19/17 08:14; Start 03/25/17 at 17:00; Stop 04/19/17 at 10:16; Status DC Potassium Chloride (Klor-Con) 10 meq DAILYWBKFT PO Last administered on 08:17; Start 03/26/17 at 08:00; Stop 04/19/17 at 10:16; Status DC Olanzapine (ZyPREXA ZYDIS) 2.5 mg PRN Q2HR PRN PO PSYCHOSIS/AGITATION Last administered on 04/16/17 03:34; Start 03/26/17 at 14:30; Stop 04/19/17 at 10:16 ; Status DC Vitamin D (Vitamin D3) 50,000 unit WEEKLY PO Last administered on 04/16/17 07: 55; Start 04/02/17 at 09:00; Stop 04/19/17 at 10:16; Status DC Magnesium Oxide (Magnesium Oxide) 400 mg TID PO Last administered on 04/19/17 08:14; Start 03/26/17 at 21:00; Stop 04/19/17 at 10:16; Status DC Rivaroxaban (Xarelto) 20 mg DAILYWSUP PO Last administered on 04/18/17 17:44; Start 03/27/17 at 08:00; Stop 04/19/17 at 10:16; Status DC Trazodone HCl (Desyrel) 100 mg QHS PO Last administered on 03/27/17 20:20; Start 03/26/17 at 21:00; Stop 03/28/17 at 18:59; Status DC Trazodone HCl (Desyrel) 100 mg PRN QHS PRN PO INSOMNIA; Start 03/26/17 at 21:00 ; Stop 03/28/17 at 18:59; Status DC [facility] Carbonate 300 mg QHS PO Last administered on 04/03/17 19:28; Start at 21:00; Stop 04/03/17 at 19:51; Status DC Trazodone HCl (Desyrel) 150 mg PRN QHS PRN PO INSOMNIA Last administered on 21:44; Start 03/28/17 at 21:00; Stop 04/19/17 at 10:16; Status DC Trazodone HCl (Desyrel) 150 mg QHS PO Last administered on 04/18/17 19:43; Start 03/28/17 at 21:00; Stop 04/19/17 at 10:16; Status DC Risperidone (RisperDAL) 2 mg QHS PO Last administered on 04/13/17 20:17; Start 03/29/17 at 21:00; Stop 04/14/17 at 15:38; Status DC Risperidone (RisperDAL) 0.5 mg HS PO Last administered on 03/30/17 19:47; Start 03/29/17 at 21:00; Stop 03/31/17 at 18:47; Status DC Mirtazapine (Remeron) 7.5 mg QHS PO Last administered on 04/18/17 19:42; Start 03/30/17 at 21:00; Stop 04/19/17 at 10:16; Status DC Quetiapine Fumarate (SEROquel) 50 mg QHS PO Last administered on 04/01/17 19: 47; Start 03/31/17 at 21:00; Stop 04/02/17 at 09:00; Status DC Quetiapine Fumarate (SEROquel) 100 mg HS PO Last administered on 04/18/17 19: 44; Start 04/02/17 at 21:00; Stop 04/19/17 at 10:16; Status DC Clonazepam (KlonoPIN) 0.25 mg BID92 PO Last administered on 04/19/17 08:17; Start 04/01/17 at 14:00; Stop 04/19/17 at 10:16; Status DC Fluvoxamine Maleate (Luvox) 25 mg HS PO Last administered on 04/04/17 19:48; Start 04/01/17 at 21:00; Stop 04/05/17 at 17:41; Status DC Cyclosporine (Restasis) 1 drop BID OU Last administered on 04/19/17 08:13; Start 04/02/17 at 21:00; Stop 04/19/17 at 10:16; Status DC [facility] Carbonate 450 mg QHS PO Last administered on 04/18/17 19:43; Start at 21:00; Stop 04/19/17 at 10:16; Status DC Fluvoxamine Maleate (Luvox) 50 mg HS PO Last administered on 04/18/17 19:43; Start 04/05/17 at 21:00; Stop 04/19/17 at 10:16; Status DC Zolpidem Tartrate (Ambien) 5 mg PRN QHS PRN PO INSOMNIA Last administered on 23:49; Start 04/10/17 at 20:00; Stop 04/11/17 at 19:36; Status DC Temazepam (Restoril) 15 mg PRN QHS PRN PO INSOMNIA, MAY REPEAT X1 Last administered on 04/11/17 20:39; Start 04/11/17 at 19:45; Stop 04/12/17 at 18:01 ; Status DC Doxepin HCl (SINEquan) 50 mg QHS PO Last administered on 04/18/17 19:44; Start 04/12/17 at 21:00; Stop 04/19/17 at 10:16; Status DC Acetaminophen (Tylenol) 650 mg [id number] PO Last administered on 04/14/17 13:22; Start 04/14/17 at 14:00; Stop 04/14/17 at 14:00; Status DC Acetaminophen (Tylenol) 650 mg TID PO Last administered on 04/19/17 08:14; Start 04/14/17 at 14:00; Stop 04/19/17 at 10:16; Status DC Risperidone (RisperDAL) 2.5 mg QHS PO Last administered on 04/18/17 19:42; Start 04/14/17 at 21:00; Stop 04/19/17 at 10:16; Status DC Cyanocobalamin (Vitamin B-12) 1,000 mcg DAILYBFRLUN PO Last administered on 08:14; Start 04/16/17 at 11:30; Stop 04/19/17 at 10:16; Status DC Cetirizine HCl (ZyrTEC) 10 mg DAILY PO Last administered on 04/19/17 08:13; Start 04/16/17 at 14:15; Stop 04/19/17 at 10:16; Status DC Docusate Calcium (Surfak) 240 mg DAILY PO Last administered on 04/19/17 08:13 ; Start 04/17/17 at 09:00; Stop 04/19/17 at 10:16; Status DC Active Scripts Active Reported Trazodone Hcl 150 Mg Tablet 1 Tab PO PRN QHS PRN Xarelto (Rivaroxaban) 20 Mg Tablet 20 Mg PO DAILYBFRSUP Risperidone 0.5 Mg Tablet 0.5 Mg PO QHS Zyprexa Zydis (Olanzapine) 5 Mg Tab.rapdis 2.5 Mg PO PRN Q2HR PRN MDD 10mg Mirtazapine 7.5 Mg Tablet 7.5 Mg PO QHS Trazodone Hcl 150 Mg Tablet 150 Mg PO HS Fluvoxamine Maleate 50 Mg Tablet 50 Mg PO HS Restasis (Cyclosporine) 1 Each Droperette 1 Drop EACHEYE BID Clonazepam 0.5 Mg Tablet 0.25 Mg PO BID92 Seroquel (Quetiapine Fumarate) 100 Mg Tablet 100 Mg PO HS Magnesium Oxide 400 Mg Tablet 400 Mg PO TID Doxepin Hcl 50 Mg Capsule 50 Mg PO HS Vitamin B-12 (Cyanocobalamin (Vitamin B-12)) 1,000 Mcg Tablet 1,000 Mcg PO DAILYWLUN D3-50 (Cholecalciferol (Vitamin D3)) 50,000 Unit Capsule 50,000 Unit PO QFR Cetirizine Hcl 10 Mg Tablet 10 Mg PO DAILY Tylenol (Acetaminophen) 325 Mg Tablet 650 Mg PO PRN Q6HRS PRN Risperdal (Risperidone) 2 Mg Tablet 2 Mg PO QHS Metoprolol Tartrate 25 Mg Tablet [address] [place] Carbonate 150 Mg Capsule [address] [place] Carbonate 300 Mg Tablet 300 Mg PO DAILY Pantoprazole Sodium 40 Mg Tablet.dr 40 Mg PO BID Doc-Q-Lace (Docusate Sodium) 100 Mg Capsule 100 Mg PO BID Potassium Chloride 10 Meq Tablet.er 10 Meq PO DAILYWBKFT Diltiazem 24Hr ER (Diltiazem HCl) 240 Mg Tab.er.24h 240 Mg PO DAILY Atorvastatin Calcium 20 Mg Tablet 20 Mg PO QHS NOT GIVEN IN THE HOSPITAL NEXT DOSE DUE: DATE: RESTART TODAY TIME: AT BEDTIME Levothyroxine Sodium 25 Mcg Tablet 25 Mcg PO DAILY07 Singulair Tablet (Montelukast Sodium) 10 Mg Tablet 10 Mg PO HS Diagnosis: Problems: (1) Dementia, vascular, with delusions (2) Dementia, vascular, with depression (3) Bipolar affective, mixed, sev w/ psych (4) Delusional disorder (5) Impulse control disorder (6) Anxiety disorder EULALIA NANCE MD Apr 19, 2017 14:14
--- NOTE | 2017-04-20 19:07 | DS ---
DATE OF DISCHARGE: 04/19/2017 This late entry 04/19/2017 covers elements not covered in my initial note of 04/19/2017. REASON FOR ADMISSION: Please refer to the admission history for details. Briefly, the patient is a 67-year-old female referred to us from [facility] medical/surgical floor after she was medically stabilized, continued to be extremely psychotic with marked mood lability, agitation, anxiety within the context of her bipolar disorder, uncompensated. I had followed the patient for psychiatric consult on the medical/surgical floor. She remained unstable, was transferred to our unit for stabilization. SIGNIFICANT FINDINGS AND CLINICAL COURSE: Following admission, the patient was seen daily individually by myself, followed medically per Dr. Hall/Dr. Kim. She was extremely labile, psychotic, up and down to the nursing station, unable to sit still, somatically preoccupied, paranoid, and delusional. Adjustments were made in her psychotropics very gradually with multiple back and forth due to ongoing symptoms, marked insomnia, anxiety, psychosis, and mood lability all of which seemed to subside on a combination of lithium carbonate 300 mg a.m. and 450 bedtime with a level therapeutic at 0.8, Risperdal 2.5 mg at bedtime, trazodone 150 mg at bedtime, may repeat x 1 for insomnia, Zyprexa p.r.n., Luvox 50 mg at bedtime for marked OCD symptoms/anxiety, Klonopin 0.25 mg 0900 and 1400, Restoril 15 mg at bedtime p.r.n., may repeat x 1 for insomnia, Remeron 7.5 mg at bedtime, doxepin 50 mg at bedtime and this could be reduced and discontinued starting in about 4-6 weeks when she is stable as an outpatient. She was also on Seroquel 100 mg at bedtime. This makes it that she was on 2 atypical antipsychotics and once she is stable for about 6 weeks, the Seroquel could be reduced by 25 mg every 2 weeks till it is discontinued and then decision made on the dosage of Risperdal at that stage at the [facility]. Chronic constipation was treated symptomatically. Prior to discharge on 04/19/2017, she still has some vague somatic symptoms, anxiety. REVIEW OF SYSTEMS: No CV, , pulmonary, eye, ENT system symptoms on review. MENTAL STATUS EXAM: Reasonably oriented. Speech coherent, abstraction fair, computation impaired, language function intact. Mood and affect improved. No active suicidal or homicidal ideation. CONDITION ON DISCHARGE: Improved. FINAL DIAGNOSES: Bipolar 1 disorder, mixed with psychotic features, in partial remission; anxiety disorder, unspecified; cognitive disorder, unspecified. Rest unchanged from admission. DISCHARGE MEDICATIONS: Please refer to the MRAD. DISCHARGE INSTRUCTIONS: Outpatient psychiatric followup at the [facility] medical followup with her primary care physician. Time for discharge day management greater than 30 minutes. MAN Chantell NANCE MD DR: ELLIS/fernando JOB#: [id number] / [id number]
== END 2017-04-19 10:15 | disposition home or self-care (01) | DRG 884 ==
LOC: GEROPSY 16:35
PROVIDERS: ADMIT Psychiatry & Neurology Psychiatry; ATTEND Psychiatry & Neurology Psychiatry
DX: F01.51 Vascular dementia, unspecified severity, with behavioral disturbance (principal); E87.0 Hyperosmolality and hypernatremia; I48.0 Paroxysmal atrial fibrillation; J44.9 Chronic obstructive pulmonary disease, unspecified; F31.64 Bipolar disorder, current episode mixed, severe, with psychotic features; I10 Essential (primary) hypertension; E03.9 Hypothyroidism, unspecified; E78.5 Hyperlipidemia, unspecified; F41.9 Anxiety disorder, unspecified; M19.90 Unspecified osteoarthritis, unspecified site; M54.9 Dorsalgia, unspecified; F42.9 Obsessive-compulsive disorder, unspecified; F63.9 Impulse disorder, unspecified; G47.00 Insomnia, unspecified; G89.4 Chronic pain syndrome; I25.10 Atherosclerotic heart disease of native coronary artery without angina pectoris; K21.9 Gastro-esophageal reflux disease without esophagitis; K59.09 Other constipation; M79.7 Fibromyalgia; Z79.899 Other long term (current) drug therapy; Z86.73 Personal history of transient ischemic attack (TIA), and cerebral infarction without residual deficits; Z87.891 Personal history of nicotine dependence; Z87.440 Personal history of urinary (tract) infections; Z88.8 Allergy status to other drugs, medicaments and biological substances; Z87.81 Personal history of (healed) traumatic fracture; Z90.49 Acquired absence of other specified parts of digestive tract; Z90.710 Acquired absence of both cervix and uterus
CPT/HCPCS: 36415; 72100; 73552; 73590; 73630; 80053; 80061; 80178; 82306; 82607; 83036; 83540; 83550; 83735; 84436; 84443; 84480; 85025; 85027; 86592; 86593

== ENCOUNTER → 2017-04-26 | Outpatient (CLI) | payer MEDICARE, OTHER ==
[2017-04-19 08:15] VITALS: BP 106/66
[~2017-04-26] MED LIST changes: +ACET325T9 PO; +CHOL500021 PO; +CLON0.5T3 PO; +CYAN10005 PO; +CYCL1DRO EACHEYE; +DOCU100C28 PO; +DOCU240C30 PO; +FLUV50TA2 PO; +MAG355OR12 PO; +MAGN2400 PO; +MAGN400T3 PO; +MENT113G6 TP; +MIRT15TA3 PO; +MIRT7.5T8 PO; +OLAN5TAB5 PO; +OLAN5TAB9 PO; +QUET100T4 PO; +RISP0.5T3 PO; +TRAZ150T49 PO
[2017-04-26 12:11] LABS: BASO % 1 % (0-3); EOS # 0.1 x10^3/uL (0.0-0.7); EOS % 2 % (0-3); HEMATOCRIT 40.2 % (36.0-47.0); HEMOGLOBIN 13.4 g/dL (12.0-15.5); LYMPH % 23 % (24-48); MEAN CORPUSCULAR HEMOGLOBIN 31 pg (25-35); MEAN CORPUSCULAR HGB CONC 33 g/dL (31-37); MEAN CORPUSCULAR VOLUME 92 fL (79-100); MONO # 0.5 x10^3/uL (0.0-1.1); MONO % 5 % (0-9); NEUT # 6.1 x10^3uL (1.8-7.7); NEUT % 70 % (31-73); PLATELET COUNT 281 x10^3/uL (140-400); RED BLOOD COUNT 4.35 x10^6/uL (3.50-5.40); RED CELL DISTRIBUTION WIDTH 13.4 % (11.5-14.5); WHITE BLOOD COUNT 8.7 x10^3/uL (4.0-11.0)
[2017-04-26 12:29] LABS: ALBUMIN 3.4 g/dL (3.4-5.0); CALCIUM 9.4 mg/dL (8.5-10.1); GFR 55.6; POTASSIUM 4.5 mmol/L (3.5-5.1); TOTAL BILIRUBIN 0.3 mg/dL (0.2-1.0); TOTAL PROTEIN 6.9 g/dL (6.4-8.2)
[2017-04-27 13:48] LABS: LI 1.1 mmol/L (0.6-1.2)
== END | disposition home or self-care (01) ==
LOC: LAB 11:17
PROVIDERS: ATTEND Family Medicine
DX: F31.9 Bipolar disorder, unspecified (principal)
CPT/HCPCS: 36415; 80053; 80178; 85025

== ENCOUNTER 2017-05-09 19:21 | Emergency (ER) | payer MEDICARE, OTHER ==
[~2017-05-09] VITALS: Ht 162.6 cm; Wt 74.6 kg
[2017-05-09 19:25] VITALS: BP 145/74
[2017-05-09] MEDS ORDERED: ALPRAZolam 0.25 MG TABLET ONE (20:48)
[2017-05-09 20:56] LABS: BACTERIA,URINE 0 /HPF (0-FEW); BILIRUBIN,URINE NEG (NEG); CLARITY,URINE CLEAR; COLOR,URINE STRAW; GLUCOSE,URINE NEG (NEG); NITRITE,URINE NEG (NEG); RBC,URINE OCC /HPF (0-2); SQUAMOUS EPITHELIAL CELL,UR OCC /LPF; UROBILINOGEN,URINE 0.2 mg/dL (0.2 mg/dL); WBC,URINE OCC /HPF (0-4)
[2017-05-09 21:03] LABS: CALCIUM 9.7 mg/dL (8.5-10.1); CREATININE 0.9 mg/dL (0.6-1.0); GFR 62.8; POTASSIUM 3.7 mmol/L (3.5-5.1)
[2017-05-09] MEDS ORDERED: ALPRAZolam 0.25 MG TABLET PO ONE (21:15)
[2017-05-09] MEDS ORDERED: ACETAMINOPHEN 325 MG TABLET PO ONE (21:15)
--- NOTE | 2017-05-09 22:00 | PHYS DOC ---
Past History Past Medical History: Bipolar, Depression, Migraines, Schizophrenia, Other Past Surgical History: Appendectomy, Cholecystectomy, Colectomy, Hysterectomy Alcohol Use: Occasionally Drug Use: None Adult General Chief Complaint Chief Complaint: URINARY FREQUENCY HPI HPI 67-year-old female well known to our emergency medicine service for frequent presentations regarding her history of anxiety depression bipolar and schizophrenia. Patient now presents the emergency department concerned that she could have urinary tract infection. She states she's been urinating frequently. Patient denies fevers chills sweats or shaking chills. She denies abdominal pain or flank pain. Patient is anxious about her medical condition which per staff is very typical for her. Review of Systems Review of Systems Constitutional: Denies fever or chills [] Eyes: Denies change in visual acuity, redness, or eye pain [] HENT: Denies nasal congestion or sore throat [] Respiratory: Denies cough or shortness of breath [] Cardiovascular: No additional information not addressed in HPI [] GI: Denies abdominal pain, nausea, vomiting, bloody stools or diarrhea [] : Denies dysuria or hematuria [] Musculoskeletal: Denies back pain or joint pain [] Integument: Denies rash or skin lesions [] Neurologic: Denies headache, focal weakness or sensory changes [] Endocrine: Denies polyuria or polydipsia [] Current Medications Current Medications Current Medications Medications (Trade) Dose Ordered Sig/Tracy Start Time Stop Time Status Last Admin Dose Admin Acetaminophen (Tylenol) 650 mg 1X ONCE 05/09/17 21:15 05/09/17 21:16 DC 05/09/17 20:50 650 MG Alprazolam (Xanax) 0.25 mg STK-MED ONCE 05/09/17 20:48 05/09/17 20:49 DC Allergies Allergies Allergies Coded Allergies Type Severity Reaction Last Updated Verified codeine Allergy Intermediate 01/11/16 Yes metoclopramide Allergy Intermediate 08/31/16 Yes morphine Allergy Intermediate Palpitations 08/31/16 Yes losartan Adverse Reaction Intermediate mild pancreatitis 01/07/17 Yes Physical Exam Physical Exam Mildly Anxious appearing patient no acute distress depressed mood and flat affect however she is very clear she has no suicidal ideation. Remainder of exam is benign with no suprapubic tenderness completely benign abdomen and anterior pelvis and no CVA tenderness Constitutional: Well developed, well nourished, no acute distress, non-toxic appearance. [] HENT: Normocephalic, atraumatic, bilateral external ears normal, oropharynx moist, no oral exudates, nose normal. [] Eyes: PERRLA, EOMI, conjunctiva normal, no discharge. [] Neck: Normal range of motion, no tenderness, supple, no stridor. [] Cardiovascular:Heart rate regular rhythm, no murmur [] Lungs & Thorax: Bilateral breath sounds clear to auscultation [] Abdomen: Bowel sounds normal, soft, no tenderness, no masses, no pulsatile masses. [] Skin: Warm, dry, no erythema, no rash. [] Back: No tenderness, no CVA tenderness. [] Extremities: No tenderness, no cyanosis, no clubbing, ROM intact, no edema. [] Neurologic: Alert and oriented X 3, normal motor function, normal sensory function, no focal deficits noted. [] Psychologic: Flat affect. Baseline per staff Current Patient Data Vital Signs Vital Signs Date Time Temp Pulse Resp B/P (MAP) Pulse Ox O2 Delivery O2 Flow Rate FiO2 05/09/17 19:25 98.0 88 22 94 Room Air Lab Results Laboratory Tests Test 05/09/17 20:00 Urine Collection Type Unknown Urine Color Straw Urine Clarity Clear Urine pH 6.0 Urine Specific [place] <=1.005 Urine Protein Neg (NEG-TRACE) Urine Glucose (UA) Neg mg/dL (NEG) Urine Ketones (Stick) Neg mg/dL (NEG) Urine Blood Small (NEG) Urine Nitrite Neg (NEG) Urine Bilirubin Neg (NEG) Urine Urobilinogen Dipstick 0.2 mg/dL (0.2 mg/dL) Urine Leukocyte Esterase Small (NEG) Urine RBC Occ /HPF (0-2) Urine WBC Occ /HPF (0-4) Urine Squamous Epithelial Cells Occ /LPF Urine Bacteria 0 /HPF (0-FEW) Sodium Level 140 mmol/L (136-145) Potassium Level 3.7 mmol/L (3.5-5.1) Chloride Level 105 mmol/L (98-107) Carbon Dioxide Level 25 mmol/L (21-32) Anion Gap 10 (6-14) Blood Urea Nitrogen 18 mg/dL (7-20) Creatinine 0.9 mg/dL (0.6-1.0) Estimated GFR (Cockcroft-Gault) 62.8 Glucose Level 100 mg/dL (70-99) H Calcium Level 9.7 mg/dL (8.5-10.1) EKG EKG [] Radiology/Procedures Radiology/Procedures [] Course & Med Decision Making Course & Med Decision Making Pertinent Labs and Imaging studies reviewed. (See chart for details) Signs and symptoms consistent with laceration of anxiety common for this patient. Urinalysis was negative and her exam is benign. No further workup or treatment is indicated. Patient agrees with outpatient follow-up and strict return precautions given [] Dragon Disclaimer Dragon Disclaimer This chart was dictated in whole or in part using Voice Recognition software in a busy, high-work load, and often noisy Emergency Department environment. It may contain unintended and wholly unrecognized errors or omissions. Departure Departure: Impression: Primary Impression: Acute anxiety Additional Impression: Dysuria Disposition: 01 HOME, SELF-CARE Condition: STABLE Referrals: EDMUND RUBIO MD (PCP) Patient Instructions: Anxiety and Panic Attacks Additional Instructions: You have been suffering from anxiety. Your urinalysis was normal today. Follow- up with your doctor tomorrow in the office. Problem Qualifiers PAULA GRISSOM MD May 09, 2017 22:00
== END 2017-05-09 22:15 | disposition home or self-care (01) ==
LOC: ER 19:21
DX: F41.9 Anxiety disorder, unspecified (principal); R30.0 Dysuria; F20.9 Schizophrenia, unspecified; G43.909 Migraine, unspecified, not intractable, without status migrainosus; F31.9 Bipolar disorder, unspecified; Z88.5 Allergy status to narcotic agent; Z88.8 Allergy status to other drugs, medicaments and biological substances
CPT/HCPCS: 36415; 80048; 81001; 99284

== ENCOUNTER 2017-07-02 10:25 | Emergency (ER) | payer MEDICARE, OTHER ==
[~2017-07-02] VITALS: Ht 160 cm; Wt 76.2 kg
[2017-07-02] MEDS ORDERED: LORazepam 1 MG TABLET PO ONE (11:00)
[2017-07-02 11:10] LABS: BASO % 1 % (0-3); EOS # 0.2 x10^3/uL (0.0-0.7); EOS % 2 % (0-3); HEMATOCRIT 40.8 % (36.0-47.0); HEMOGLOBIN 13.7 g/dL (12.0-15.5); LYMPH # 1.3 x10^3/uL (1.0-4.8); LYMPH % 18 % (24-48); MEAN CORPUSCULAR HEMOGLOBIN 30 pg (25-35); MEAN CORPUSCULAR HGB CONC 34 g/dL (31-37); MEAN CORPUSCULAR VOLUME 89 fL (79-100); MONO # 0.4 x10^3/uL (0.0-1.1); MONO % 6 % (0-9); NEUT # 5.5 x10^3uL (1.8-7.7); NEUT % 74 % (31-73); PLATELET COUNT 232 x10^3/uL (140-400); RED BLOOD COUNT 4.56 x10^6/uL (3.50-5.40); WHITE BLOOD COUNT 7.4 x10^3/uL (4.0-11.0)
[2017-07-02 11:11] LABS: ALBUMIN 3.9 g/dL (3.4-5.0); ALBUMIN/GLOBULIN RATIO 1.1 (1.0-1.7); CREATININE 1.1 mg/dL (0.6-1.0); GFR 49.8; POTASSIUM 3.3 mmol/L (3.5-5.1); TOTAL BILIRUBIN 0.3 mg/dL (0.2-1.0); TOTAL PROTEIN 7.6 g/dL (6.4-8.2)
--- NOTE | 2017-07-02 11:12 | RAD ---
Indication: Fall and tremors. Axial imaging through the brain was performed without contrast. Comparison is made with prior head CT from 03/24/2017. The ventricles and sulci are stable in appearance. No sulcal effacement, midline shift or hemorrhage is detected. The cisterns are patent. The visualized paranasal sinuses are clear. Impression: No acute intracranial process is detected. PQRS Compliance Statement: One or more of the following individualized dose reduction techniques were utilized for this examination: 1. Automated exposure control 2. Adjustment of the mA and/or kV according to patient size 3. Use of iterative reconstruction technique
[2017-07-02 11:18] LABS: BACTERIA,URINE 0 /HPF (0-FEW); BILIRUBIN,URINE NEG (NEG); CLARITY,URINE HAZY; COLOR,URINE STRAW; GLUCOSE,URINE NEG (NEG); NITRITE,URINE NEG (NEG); RBC,URINE OCC /HPF (0-2); SQUAMOUS EPITHELIAL CELL,UR OCC /LPF; UROBILINOGEN,URINE 0.2 mg/dL (0.2 mg/dL); WBC,URINE 0 /HPF (0-4)
--- NOTE | 2017-07-02 11:33 | PHYS DOC ---
Past History Past Medical History: Anxiety, Bipolar, Depression, High Cholesterol, Hypertension, Hypothyroid, Migraines, Schizophrenia Past Surgical History: Appendectomy, Cholecystectomy, Colectomy, Hysterectomy Alcohol Use: Occasionally Drug Use: None Adult General Chief Complaint Chief Complaint: TREMORS HPI HPI Patient is a 67 year old female who presents with tremor. The patient reports history of chronic tremor associated with movement of upper extremities. She states it has been more severe today & she was unable to eat her cereal because of shaking. She denies chest pain, shortness of breath, extremity numbness/ weakness, nausea, vomiting, diarrhea. She states yesterday she had a mechanical fall in her bathroom, denies loss of consciousness but hit her head on the floor. She denies syncope or seizure, no neck pain or other injuries. She takes xarelto due to history of CVA. She states last week Dr. Rubio prescribed xanax pills for her to take for tremor, but she ran out 3 days ago & has been unable to get a refill. She had not chronically been taking this medication though she has several psychiatric medications as documented in med rec, history of schizophrenia, bipolar disorder, anxiety, depression. She denies suicidal ideation. Review of Systems Review of Systems Constitutional: Denies fever or chills Eyes: Denies change in visual acuity HENT: Denies nasal congestion or sore throat Respiratory: Denies cough or shortness of breath Cardiovascular: Denies chest pain or edema GI: Denies abdominal pain, nausea, vomiting, or diarrhea : Denies dysuria or hematuria Musculoskeletal: Denies back pain or joint pain Integument: Denies rash or skin lesions Neurologic: Denies headache, focal weakness or sensory changes, reports tremor All other systems were reviewed and found to be within normal limits, except as documented in this note. Current Medications Current Medications Current Medications Medications (Trade) Dose Ordered Sig/Tracy Start Time Stop Time Status Last Admin Dose Admin Lorazepam (Ativan) 1 mg 1X ONCE 07/02/17 11:00 07/02/17 11:01 DC 07/02/17 11:12 1 MG Potassium Chloride (Klor-Con) 40 meq 1X ONCE 07/02/17 11:40 07/02/17 11:41 Allergies Allergies Allergies Coded Allergies Type Severity Reaction Last Updated Verified codeine Allergy Intermediate 01/11/16 Yes metoclopramide Allergy Intermediate 08/31/16 Yes morphine Allergy Intermediate Palpitations 2/20/17 Yes losartan Adverse Reaction Intermediate mild pancreatitis 01/07/17 Yes Physical Exam Physical Exam Constitutional: Well developed, well nourished, no acute distress, non-toxic appearance. HENT: Normocephalic, atraumatic, bilateral external ears normal, oropharynx moist, nose normal. Eyes: PERRLA, EOMI, conjunctiva normal, no discharge. Neck: supple, no stridor. Cardiovascular: RRR, no murmurs, no edema. Lungs & Thorax: LCTAB, no wheezing, no respiratory distress. Abdomen: soft, nontender, nondistended. Skin: Warm, dry, no erythema, no rash. Back: No tenderness. Extremities: No tenderness, no edema. Neurologic: Alert and oriented X 3, cranial nerves 2-12 grossly intact, symmetric strength/sensation to upper & lower extremities, no focal deficits noted. minimal tremor at rest, intention tremor to bilateral upper extremities. Psychologic: flat affect, depressed mood Current Patient Data Vital Signs Vital Signs Date Time Temp Pulse Resp B/P (MAP) Pulse Ox O2 Delivery O2 Flow Rate FiO2 07/02/17 10:25 98.5 101 18 96 Room Air Lab Results Laboratory Tests Test 07/02/17 10:44 07/02/17 10:55 White Blood Count 7.4 x10^3/uL (4.0-11.0) Red Blood Count 4.56 x10^6/uL (3.50-5.40) Hemoglobin 13.7 g/dL (12.0-15.5) Hematocrit 40.8 % (36.0-47.0) Mean Corpuscular Volume 89 fL (79-100) Mean Corpuscular Hemoglobin 30 pg (25-35) Mean Corpuscular Hemoglobin Concent 34 g/dL (31-37) Red Cell Distribution Width 14.0 % (11.5-14.5) Platelet Count 232 x10^3/uL (140-400) Neutrophils (%) (Auto) 74 % (31-73) H Lymphocytes (%) (Auto) 18 % (24-48) L Monocytes (%) (Auto) 6 % (0-9) Eosinophils (%) (Auto) 2 % (0-3) Basophils (%) (Auto) 1 % (0-3) Neutrophils # (Auto) 5.5 x10^3uL (1.8-7.7) Lymphocytes # (Auto) 1.3 x10^3/uL (1.0-4.8) Monocytes # (Auto) 0.4 x10^3/uL (0.0-1.1) Eosinophils # (Auto) 0.2 x10^3/uL (0.0-0.7) Basophils # (Auto) 0.0 x10^3/uL (0.0-0.2) Sodium Level 136 mmol/L (136-145) Potassium Level 3.3 mmol/L (3.5-5.1) L Chloride Level 103 mmol/L (98-107) Carbon Dioxide Level 25 mmol/L (21-32) Anion Gap 8 (6-14) Blood Urea Nitrogen 23 mg/dL (7-20) H Creatinine 1.1 mg/dL (0.6-1.0) H Estimated GFR (Cockcroft-Gault) 49.8 BUN/Creatinine Ratio 21 (6-20) H Glucose Level 135 mg/dL (70-99) H Calcium Level 10.0 mg/dL (8.5-10.1) Total Bilirubin 0.3 mg/dL (0.2-1.0) Aspartate Amino Transferase (AST) 16 U/L (15-37) Alanine Aminotransferase (ALT) 27 U/L (14-59) Alkaline Phosphatase 132 U/L (46-116) H Troponin I Quantitative < 0.017 ng/mL (0-0.055) Total Protein 7.6 g/dL (6.4-8.2) Albumin 3.9 g/dL (3.4-5.0) Albumin/Globulin Ratio 1.1 (1.0-1.7) Urine Collection Type Unknown Urine Color Straw Urine Clarity Hazy Urine pH 6.0 Urine Specific [place] <=1.005 Urine Protein Neg (NEG-TRACE) Urine Glucose (UA) Neg mg/dL (NEG) Urine Ketones (Stick) Neg mg/dL (NEG) Urine Blood Trace (NEG) Urine Nitrite Neg (NEG) Urine Bilirubin Neg (NEG) Urine Urobilinogen Dipstick 0.2 mg/dL (0.2 mg/dL) Urine Leukocyte Esterase Neg (NEG) Urine RBC Occ /HPF (0-2) Urine WBC 0 /HPF (0-4) Urine Squamous Epithelial Cells Occ /LPF Urine Bacteria 0 /HPF (0-FEW) EKG EKG interpreted by me: 1114: normal sinus rhythm rate 86, no acute ST/T wave changes, normal intervals, no ectopy.[] Radiology/Procedures Radiology/Procedures PROCEDURE: CT HEAD WO CONTRAST Indication: Fall and tremors. Axial imaging through the brain was performed without contrast. Comparison is made with prior head CT from 03/24/2017. The ventricles and sulci are stable in appearance. No sulcal effacement, midline shift or hemorrhage is detected. The cisterns are patent. The visualized paranasal sinuses are clear. Impression: No acute intracranial process is detected. PQRS Compliance Statement: One or more of the following individualized dose reduction techniques were utilized for this examination: 1. Automated exposure control 2. Adjustment of the mA and/or kV according to patient size 3. Use of iterative reconstruction technique DICTATED AND SIGNED BY: EMMA DE LUNA MD DATE: 07/02/171108 [] Course & Med Decision Making Course & Med Decision Making Pertinent Labs and Imaging studies reviewed. (See chart for details) The patient presents with tremor. She is well appearing, states this is a chronic condition. Gave ativan here as xanax has helped in the past. Do not suspect benzodiazepine withdrawal as she has only been taking on PRN basis for less than 1 week. Obtained labs, EKG, CT head due to recent head trauma. She had hypokalemia so potassium was replaced orally, & this is a medication she takes daily. She does have a medication list which includes lithium. Suspect less likely acute toxicity as she has no other complaints at this time, but consulted with lab to obtain send out lithium level. This has to go to [facility] & we will not have a result until tomorrow. Patient stable at this time with no other acute symptoms. Will discharge home & contact patient in the event that she has abnormal result on lab resulted tomorrow. Will coordinate with day shift physician tomorrow to notify patient if result is abnormal, & I will also be working at [facility] so will plan to follow up the result as well. Recommend follow up with primary care in 2-3 days. Come back for focal neuro deficit, chest pain, shortness of breath, uncontrolled vomiting, seizure/syncope, any otherwise worsening condition. Discharged home in stable condition. [] Dragon Disclaimer Dragon Disclaimer This electronic medical record was generated, in whole or in part, using a voice recognition dictation system. Departure Departure: Impression: Primary Impression: Tremor Additional Impression: Hypokalemia Disposition: HOME, SELF-CARE Condition: STABLE Referrals: EDMUND RUBIO MD (PCP) Patient Instructions: Hypokalemia, Tremor Additional Instructions: You were seen in the emergency department today for tremor. Your potassium was slightly low, but otherwise we did not find a serious cause of your symptoms. It is important to follow up with your doctor for ongoing management of chronic medical problems. Come back for chest pain, shortness of breath, uncontrolled vomiting, arm or leg numbness or weakness, or any otherwise worsening condition. Problem Qualifiers ELAINE ARRIAGA MD Jul 02, 2017 11:33
[2017-07-02 11:35] VITALS: BP 151/85
[2017-07-02] MEDS ORDERED: POTASSIUM CHLORIDE 20 MEQ TABLET.ER. PO ONE (11:40)
--- NOTE | 2017-07-02 13:08 | EKG ---
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
[2017-07-03 10:55] LABS: LI 1.8 mmol/L (0.6-1.2)
[2017-07-03] MEDS ORDERED: ROPI1TAB2 PO (16:42)
[2017-07-03] MEDS ORDERED: SERT50TA PO (16:42)
[2017-07-03] MEDS ORDERED: LISI1TAB7 PO (16:42)
[2017-07-03] MEDS ORDERED: ALPR1TAB6 PO (23:53)
== END 2017-07-02 11:38 | disposition home or self-care (01) ==
LOC: ER 10:25
DX: R25.1 Tremor, unspecified (principal); E87.6 Hypokalemia; E03.9 Hypothyroidism, unspecified; E78.00 Pure hypercholesterolemia, unspecified; F20.9 Schizophrenia, unspecified; F31.9 Bipolar disorder, unspecified; F41.9 Anxiety disorder, unspecified; I10 Essential (primary) hypertension; G43.909 Migraine, unspecified, not intractable, without status migrainosus; Z86.73 Personal history of transient ischemic attack (TIA), and cerebral infarction without residual deficits; Z88.5 Allergy status to narcotic agent; Z88.8 Allergy status to other drugs, medicaments and biological substances; W18.09XA Striking against other object with subsequent fall, initial encounter; Y93.89 Activity, other specified; Y99.8 Other external cause status; Y92.002 Bathroom of unspecified non-institutional (private) residence as the place of occurrence of the external cause
CPT/HCPCS: 36415; 70450; 80053; 80178; 81001; 84484; 85025; 93005; 99285-25

== ENCOUNTER 2017-07-03 13:20 | Inpatient (IN) | payer MEDICARE, OTHER ==
[~2017-07-03] VITALS: Ht 160 cm; Wt 73.6 kg
[2017-07-03] MEDS: IV NORMAL SALINE 1,000ML 1,000 ML IV SCH ×2 (00:30→16:41)
--- NOTE | 2017-07-03 14:08 | PHYS DOC ---
Past History Past Medical History: Anxiety, Bipolar, Depression, High Cholesterol, Hypertension, Hypothyroid, Migraines, Schizophrenia Past Surgical History: Appendectomy, Cholecystectomy, Colectomy, Hysterectomy Alcohol Use: Occasionally Drug Use: None Adult General Chief Complaint Chief Complaint: ABNORMAL LABS [facility] HPI Patient is a 67 year old female who presents with tremor. The patient reports history of chronic tremor associated with movement of upper extremities. She states it has been more severe yesterday to the point that she was unable to eat because of shaking. She denies chest pain, shortness of breath, extremity numbness/weakness, nausea, vomiting, diarrhea. She states she had a recent mechanical fall in her bathroom, denies loss of consciousness but hit her head on the floor. She denies syncope or seizure, no neck pain or other injuries. She takes xarelto due to history of CVA. She states last week Dr. Rodriguez prescribed xanax pills for her to take for tremor, but she ran out 4 days ago & has been unable to get a refill. She had not chronically been taking this medication though she has several psychiatric medications as documented in med rec, history of schizophrenia, bipolar disorder, anxiety, depression. She denies suicidal ideation. Patient was instructed to return to the ED as her lithium level came back toxic at 1.8. Given her symptoms and her increased tremor off Xanax patient may be expressing some withdrawal symptoms as well. I will write her for admission to ensure that we can wean her off lithium 10 appropriate level while her symptoms improve. She did take her lithium this morning not knowing that she was was in the toxic level. Review of Systems Review of Systems Constitutional: Denies fever or chills [] Eyes: Denies change in visual acuity, redness, or eye pain [] HENT: Denies nasal congestion or sore throat [] Respiratory: Denies cough or shortness of breath [] Cardiovascular: No additional information not addressed in HPI [] GI: Denies abdominal pain, nausea, vomiting, bloody stools or diarrhea [] : Denies dysuria or hematuria [] Musculoskeletal: Denies back pain or joint pain [] Integument: Denies rash or skin lesions [] Neurologic: Denies headache, focal weakness or sensory changes patient may need complains of generalized weakness and tremor that got progressively worse since stopping her Xanax Endocrine: Denies polyuria or polydipsia [] All other systems were reviewed and found to be within normal limits, except as documented in this note. Allergies Allergies Allergies Coded Allergies Type Severity Reaction Last Updated Verified codeine Allergy Intermediate 01/11/16 Yes metoclopramide Allergy Intermediate 08/31/16 Yes morphine Allergy Intermediate Palpitations 08/31/16 Yes losartan Adverse Reaction Intermediate mild pancreatitis 01/07/17 Yes Physical Exam Physical Exam Vital signs recorded on the chart within normal limits no hypoxia, Constitutional: Patient is debilitated and out of shape with some mild obesity HENT: Normocephalic, atraumatic, bilateral external ears normal, oropharynx moist, no oral exudates, nose normal. [] Eyes: PERRLA, EOMI, conjunctiva normal, no discharge. [] Neck: Normal range of motion, no tenderness, supple, no stridor. [] Cardiovascular:Heart rate regular rhythm, no murmur [] Lungs & Thorax: Bilateral breath sounds clear to auscultation [] Abdomen: Bowel sounds normal, soft, no tenderness, no masses, no pulsatile masses. [] Skin: Warm, dry, no erythema, no rash. [] Back: No tenderness, no CVA tenderness. [] Extremities: No tenderness, no cyanosis, no clubbing, ROM intact, no edema. [] Neurologic: Alert and oriented X 3, patient has a resting tremor of the upper external is bilaterally and some issues with memory. Patient seems lucid but somewhat bizarre and she has some bizarre judgment[] Psychologic: Affect normal, judgment seems abnormal, seemed somewhat depressed but no suicidal homicidal ideations. [] Current Patient Data Vital Signs Vital Signs Date Time Temp Pulse Resp B/P (MAP) Pulse Ox O2 Delivery O2 Flow Rate FiO2 07/03/17 13:32 98.3 83 16 97 Room Air EKG EKG []Patient's EKG at 1350 9 PM 07/03/2017 was trace P waves every QRS normal sinus rhythm heart rate of 71, there is no ST segment or T-wave changes consistent with acute cord ischemia. Patient is a [place] interval is 174, ureters with of 74, QTC which is 442 to all within normal limits. There is no evidence of long QT prolongation hyperkalemia or other electrolyte abnormalities. Radiology/Procedures Radiology/Procedures [] Course & Med Decision Making Course & Med Decision Making Pertinent Labs and Imaging studies reviewed. (See chart for details) []Impression was asked to return to the ER for possible lithium toxicity with a measured serum lithium level I.8. Patient reports did not notice at the time and did reduce her lithium at home. She still having the resting tremor feels generally weak. These are all consistent symptoms with lithium toxicity due to the fact this patient uses lithium chronically for her bipolar disorder and she is now off her Xanax this may be accommodation of those agents. Patient may be withdrawing from benzodiazepines causing the resting tremors and irritation as well as general fatigue. We will also screen her for electrolyte abnormalities and hypothyroidism versus hyperthyroidism Anesthesiology Crna note: Dr. Clau STAFFORD Anesthesiology Crna called at of the service internal medicine services hospitalist program called at 2:20 PM Consult called back at 2:21 PM Discussed the case I presented and they agreed with admission. Time of acceptance 2:21 PM At this point I will ensure the patient is well-hydrated with fluids we will repeat lithium level hold oral doses for today and tomorrow to see if she improves and her symptoms resolved. Dragon Disclaimer Dragon Disclaimer This electronic medical record was generated, in whole or in part, using a voice recognition dictation system. Departure Departure: Impression: Primary Impression: Anxiety disorder Additional Impression: [place] toxicity Disposition: ADMITTED INPATIENT Admitting Physician: Js Kim Condition: GUARDED Referrals: EDMUND RODRIGUEZ MD (PCP) Problem Qualifiers LUCI KEARNS MD Jul 03, 2017 14:08
[2017-07-03 15:13] LABS: BASO # 0.1 x10^3/uL (0.0-0.2); BASO % 1 % (0-3); EOS # 0.1 x10^3/uL (0.0-0.7); EOS % 1 % (0-3); HEMATOCRIT 39.6 % (36.0-47.0); HEMOGLOBIN 13.4 g/dL (12.0-15.5); LYMPH # 1.6 x10^3/uL (1.0-4.8); LYMPH % 19 % (24-48); MEAN CORPUSCULAR HEMOGLOBIN 30 pg (25-35); MEAN CORPUSCULAR HGB CONC 34 g/dL (31-37); MEAN CORPUSCULAR VOLUME 89 fL (79-100); MONO # 0.6 x10^3/uL (0.0-1.1); MONO % 7 % (0-9); NEUT # 6.5 x10^3uL (1.8-7.7); NEUT % 74 % (31-73); PLATELET COUNT 244 x10^3/uL (140-400); RED BLOOD COUNT 4.45 x10^6/uL (3.50-5.40); RED CELL DISTRIBUTION WIDTH 13.9 % (11.5-14.5); WHITE BLOOD COUNT 8.8 x10^3/uL (4.0-11.0)
[2017-07-03] MEDS ORDERED: ALPRAZolam 0.25 MG TABLET PO ONE (15:15)
--- NOTE | 2017-07-03 15:20 | EKG ---
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
[2017-07-03 15:30] LABS: ALBUMIN 3.9 g/dL (3.4-5.0); CALCIUM 10.2 mg/dL (8.5-10.1); CREATININE 0.9 mg/dL (0.6-1.0); DIRECT BILIRUBIN 0.1 mg/dL (0.0-0.2); GFR 62.8; MAGNESIUM 1.8 mg/dL (1.8-2.4); POTASSIUM 3.7 mmol/L (3.5-5.1); TOTAL BILIRUBIN 0.4 mg/dL (0.2-1.0); TOTAL PROTEIN 7.3 g/dL (6.4-8.2)
[2017-07-03 16:33] VITALS: BP 152/78
[2017-07-03] MEDS ORDERED: ROPI1TAB2 PO (16:42)
[2017-07-03] MEDS ORDERED: LISI1TAB7 PO (16:42)
[2017-07-03] MEDS ORDERED: SERT50TA PO (16:42)
--- NOTE | 2017-07-03 18:12 | HP ---
ADMIT DATE: 07/03/2017 HISTORY OF PRESENT ILLNESS: The patient is a 67-year-old female patient who basically presented to Emergency Room with tremors. The patient reports history of chronic tremors. With movement of upper extremity, she states it has been more severe yesterday to the point where she was unable to eat because of shaking. Apparently, her lithium was elevated yesterday and was instructed to return back to the Emergency Room as her lithium came back high at a toxic level of 1.8 and given her symptoms and her increased tremor, off Xanax. The patient was admitted. We will hold her lithium, tell her symptom improves and apparently, she took her lithium this morning, not normally that the level was high and toxic levels. PAST MEDICAL HISTORY: Paroxysmal atrial fibrillation, tachybrady syndrome, anxiety, depression, history of fibromyalgia, lacunar infarct, hyperthyroidism, chronic pain syndrome, history of left leg fracture, and history of oversedation, and also polypharmacy. PAST SURGICAL HISTORY: Significant for cholecystectomy, hysterectomy, left leg fracture, status post open reduction and internal fixation. ALLERGIES: She is allergic to CODEINE, METOCLOPRAMIDE, and MORPHINE. FAMILY HISTORY: Unremarkable. SOCIAL HISTORY: She is an ex-smoker. She does not smoke anymore, does not drink alcohol. Uses recreational drugs. She was living with her ex-. MEDICATIONS: . PHYSICAL EXAMINATION: GENERAL: On examining her today, she was resting slightly propped up in bed, in no apparent respiratory distress, slightly pale, no jaundice, cyanosis or thyromegaly. No jugular venous distention. No limb edema. VITAL SIGNS: Her heart rate was 91, blood pressure 152/78, temperature was 98.4, respiratory rate 20, and oxygen saturation was 97%. HEAD, EYES, EARS, NOSE, AND THROAT: Showed normocephalic, atraumatic. NECK: Supple. HEART: Showed normal first and second heart sounds with no gallop, rub or murmur. CHEST: Clear to auscultation. No crepitation or rhonchi. ABDOMEN: Distended, soft, and nontender. NEUROLOGIC: She was awake, alert, responding appropriately. Her cranial nerves intact. EXTREMITIES: She moves extremities without difficulty. She apparently is able to ambulate without assistance or assistive devices. LABORATORY DATA: Her lab work this morning showed a white cell count of 8800, hemoglobin 13.4, hematocrit 39.6, MCV 89, and platelet count of 244,000. Her chemistry this morning showed a serum sodium 135, potassium 3.7, chloride 103, bicarbonate 24, anion gap of 8, BUN 13, creatinine 0.9, estimated GFR was 63 mL per minute, her calcium was 7.2, magnesium was 1.8. Total bilirubin, AST, ALT, alkaline phosphatase were normal. Her total protein was 7.3, albumin 3.9. Serum lipase was 214. ASSESSMENT AND PLAN: In summary, this is a 67-year-old female patient who came in with lithium toxicity. Her lithium yesterday was 1.8. Unfortunately, she took her morning dose of lithium and not normally that her level was high. We will hold her lithium, check her level tomorrow, and we will consult also Dr. Brown to see her and decide on further management accordingly. KRISTOFER NAJERA MD DR: CASSANDRA/fernando JOB#: [id number] / [id number]
[2017-07-03 19:47] VITALS: BP 104/68
[2017-07-03 22:35] VITALS: BP 101/70
[2017-07-03] MEDS ORDERED: ALPR1TAB6 PO (23:53)
[2017-07-04 03:55] LABS: BACTERIA,URINE 0 /HPF (0-FEW); BILIRUBIN,URINE NEG (NEG); CLARITY,URINE CLEAR; COLOR,URINE YELLOW; GLUCOSE,URINE NEG (NEG); NITRITE,URINE NEG (NEG); RBC,URINE 0 /HPF (0-2); UROBILINOGEN,URINE 0.2 mg/dL (0.2 mg/dL); WBC,URINE 0 /HPF (0-4)
[2017-07-04 06:26] VITALS: BP 110/66
[2017-07-04] MEDS: IV NORMAL SALINE 1,000ML 1,000 ML IV SCH ×2 (06:45→16:30)
[2017-07-04 07:15] LABS: HEMATOCRIT 36.2 % (36.0-47.0); HEMOGLOBIN 12.1 g/dL (12.0-15.5); RED BLOOD COUNT 4.04 x10^6/uL (3.50-5.40); RED CELL DISTRIBUTION WIDTH 14.1 % (11.5-14.5); WHITE BLOOD COUNT 7.6 x10^3/uL (4.0-11.0)
[2017-07-04 07:20] LABS: CALCIUM 8.9 mg/dL (8.5-10.1); CREATININE 0.9 mg/dL (0.6-1.0); GFR 62.8; MAGNESIUM 1.8 mg/dL (1.8-2.4); POTASSIUM 3.8 mmol/L (3.5-5.1)
[2017-07-04] MEDS: ACETAMINOPHEN 325 MG TABLET PO PRN ×2 (08:33→19:26)
[2017-07-04] MEDS: ONDANSETRON PF 4 MG/2 ML VIAL. IV PRN ×2 (08:58→13:27)
[2017-07-04] MEDS ORDERED: LISINOPRIL 20 MG TABLET ONE (09:00)
[2017-07-04] MEDS: DOCUSATE SODIUM 100 MG CAPSULE PO SCH ×3 (09:45→21:00)
[2017-07-04 10:32] LABS: LI 1.4 mmol/L (0.6-1.2)
[2017-07-04] MEDS: LISINOPRIL 20 MG TABLET PO SCH (10:52)
[2017-07-04] MEDS: CETIRIZINE HCL 10 MG TABLET PO SCH (10:52)
[2017-07-04] MEDS: LEVOTHYROXINE 25 MCG TABLET. PO SCH (10:53)
[2017-07-04] MEDS: hydroCHLOROthiazide 25 MG TABLET PO SCH (10:53)
[2017-07-04] MEDS: SERTRALINE 50 MG TABLET. PO SCH (10:53)
[2017-07-04] MEDS: POTASSIUM CHLORIDE 10 MEQ TABLET.ER. PO SCH (10:53)
[2017-07-04] MEDS: PANTOPRAZOLE 40 MG TABLET. PO SCH ×2 (10:54→19:26)
[2017-07-04 12:23] VITALS: BP 125/70
[2017-07-04] MEDS: ALPRAZolam 0.5 MG TABLET PO SCH ×2 (13:27→19:26)
[2017-07-04 15:13] VITALS: BP 126/71
[2017-07-04] MEDS ORDERED: IOHEXOL 240 MG/ML 50ML VIAL. ONE (16:26)
[2017-07-04] MEDS: RIVAROXABAN 10 MG TABLET. PO SCH (17:23)
[2017-07-04] MEDS ORDERED: CONTRAST GIVEN MC PRN ×2 (17:45→18:45)
[2017-07-04] MEDS ORDERED: IOHEXOL 300 MG/ML 75 ML VIAL. IV ONE (18:15)
[2017-07-04] MEDS ORDERED: IOHEXOL 240 MG/ML 50ML VIAL. PO ONE (18:30)
[2017-07-04] MEDS: risperiDONE 2 MG TABLET. PO SCH (19:26)
[2017-07-04] MEDS: rOPINIRole 1 MG TABLET. PO SCH (19:26)
[2017-07-04] MEDS: DOXEPIN HCL 25 MG CAPSULE PO SCH (19:27)
[2017-07-04 19:33] VITALS: BP 144/81
--- NOTE | 2017-07-04 19:40 | RAD ---
PQRS Compliance Statement: One or more of the following individualized dose reduction techniques were utilized for this examination: 1. Automated exposure control 2. Adjustment of the mA and/or kV according to patient size 3. Use of iterative reconstruction technique CT ABD PEL W/ORAL CONTRST ONLY Clinical Indication: Abdominal pain w/nausea. Comparison: CT abdomen and pelvis with contrast June 10, 2012. TECHNIQUE: Helical CT imaging of the abdomen and pelvis is performed after oral contrast. IV contrast not given. Findings: There is respiratory motion artifact in the lung bases. Minimal scarring or atelectasis anterior left lung base. Lung bases otherwise clear. Coronary artery disease. Cardiac size normal. Small pericardial effusion. Cholecystectomy. Liver, spleen, pancreas, adrenal glands, and abdominal aorta caliber are normal. No renal calculus. No hydronephrosis. Stomach unremarkable. No dilated small bowel. There is mild wall thickening of the sigmoid colon. Oral contrast reaches the distal descending colon. There is resection of the proximal colon to the level of the mid transverse colon. No abdominal adenopathy or free fluid. Urinary bladder is normal. Uterus surgically absent. No pelvic free fluid. No acute bone abnormality. IMPRESSION: 1. Mild wall thickening of the sigmoid colon suggestive of nonspecific colitis. 2. Small pericardial effusion. Electronically signed by: Fernando Miramontes MD (07/04/2017 7:37 PM) [facility]
[2017-07-04] MEDS: MONTELUKAST 10 MG TABLET. PO SCH (20:22)
[2017-07-04] MEDS: ATORVASTATIN CALCIUM 20 MG TABLET PO SCH (20:22)
[2017-07-04] MEDS ORDERED: LITHIUM CARBONATE 450 MG PO SCH (21:00)
[2017-07-04] MEDS ORDERED: KETOROLAC 15 MG/ML VIAL. IV PRN (21:00)
[2017-07-04] MEDS ORDERED: ENOXAPARIN 40 MG/0.4 ML DISP.SYRIN. SQ SCH (21:00)
[2017-07-04] MEDS ORDERED: KETOROLAC 30 MG/ML VIAL. IV ONE (21:00)
[2017-07-04] MEDS: metroNIDAZOLE 500 MG TABLET PO SCH (21:29)
[2017-07-04] MEDS: CIPROFLOXACIN HCL 500 MG TABLET PO SCH (21:30)
--- NOTE | 2017-07-04 22:02 | PN ---
DATE: 07/04/2017 SUBJECTIVE: The patient is resting slightly propped up in bed, in no apparent distress. She has been complaining of nausea, but no vomiting. She also has new onset of abdominal pain, mostly around the epigastric area and has too loose mucousy bowel movement. Her lithium was checked yesterday and was only 1.4 mEq per liter. PHYSICAL EXAMINATION: GENERAL: When I examined her this afternoon, she looked slightly pale, but no jaundice, cyanosis, or thyromegaly. No jugular venous distension. No limb edema. VITAL SIGNS: Her heart rate was 77, blood pressure was 110/66, temperature was 97.8, respiratory rate was 18 and oxygen saturation was 95%. HEAD, EYES, EARS, NOSE AND THROAT: Normocephalic, atraumatic. NECK: Supple. HEART: Showed normal first and second sounds with no gallop, rub or murmur. CHEST: Clear to auscultation. No crepitation or rhonchi. ABDOMEN: Distended, soft with tenderness mostly around the epigastric area and around the umbilical area along the previous surgical scar. There is, however, no guarding or rigidity. No organomegaly. Hernial orifice intact. Bowel sounds normal. NEUROLOGIC: She is awake, alert, responding appropriately. Cranial nerves intact. She moves extremities without difficulty. Her intake was 2490, output was 950. LABORATORY DATA: As of this morning showed a white cell count 7600, hemoglobin 12, hematocrit 36, MCV 90 and platelet count 232,000. Her chemistry showed a serum sodium 139, potassium 3.8, chloride 108, bicarbonate 25, anion gap of 6, BUN 12, creatinine 0.9, estimated GFR was 63 mL per minute. Her glucose 97, calcium was 8.9, magnesium was 1.8. Her TSH was slightly elevated to 6.645. ASSESSMENT: [place] toxicity manifested with tremors that actually improving. In fact, yesterday her lithium level was only 1.4 and we held her lithium. Other medical problems including hypertension, hyperlipidemia, hypothyroidism, migraine headache, anxiety and depression. The patient has new onset of nausea, abdominal pain and recurrent bouts of loose mucousy bowel movement. PLAN: My plan is to keep her n.p.o., continue IV fluid, arrange for reliable peripheral IV line and arrange for a CT scan of the abdomen and pelvis with IV and oral contrast and decide on further management accordingly. KRISTOFER NAJERA MD DR: CASSANDRA/fernando JOB#: [id number] / [id number]
[2017-07-04 22:47] VITALS: BP 109/74
[2017-07-05] MEDS: IV NORMAL SALINE 1,000ML 1,000 ML IV SCH ×2 (04:41→17:19)
[2017-07-05 05:33] VITALS: BP 111/63
[2017-07-05] MEDS: metroNIDAZOLE 500 MG TABLET PO SCH ×3 (06:29→22:01)
[2017-07-05] MEDS: LEVOTHYROXINE 25 MCG TABLET. PO SCH (06:29)
[2017-07-05 06:35] LABS: HEMATOCRIT 36.3 % (36.0-47.0); HEMOGLOBIN 12.1 g/dL (12.0-15.5); RED BLOOD COUNT 4.03 x10^6/uL (3.50-5.40); RED CELL DISTRIBUTION WIDTH 14.3 % (11.5-14.5)
[2017-07-05 06:47] LABS: ALBUMIN 2.8 g/dL (3.4-5.0); ALBUMIN/GLOBULIN RATIO 0.9 (1.0-1.7); CALCIUM 8.5 mg/dL (8.5-10.1); GFR 55.6; POTASSIUM 3.3 mmol/L (3.5-5.1); TOTAL BILIRUBIN 0.3 mg/dL (0.2-1.0); TOTAL PROTEIN 5.9 g/dL (6.4-8.2)
[2017-07-05] MEDS ORDERED: POTASSIUM CHLORIDE 10 MEQ TABLET.ER. PO ONE (08:00)
[2017-07-05] MEDS ORDERED: POTASSIUM CHLORIDE 20 MEQ TABLET.ER. PO ONE (08:00)
[2017-07-05] MEDS: SERTRALINE 50 MG TABLET. PO SCH (08:16)
[2017-07-05] MEDS: POTASSIUM CHLORIDE 10 MEQ TABLET.ER. PO SCH (08:16)
[2017-07-05] MEDS: PANTOPRAZOLE 40 MG TABLET. PO SCH ×2 (08:17→19:47)
[2017-07-05] MEDS: CIPROFLOXACIN HCL 500 MG TABLET PO SCH ×2 (08:17→19:48)
[2017-07-05] MEDS: LISINOPRIL 20 MG TABLET PO SCH (08:18)
[2017-07-05] MEDS: CETIRIZINE HCL 10 MG TABLET PO SCH (08:18)
[2017-07-05] MEDS: hydroCHLOROthiazide 25 MG TABLET PO SCH (08:18)
[2017-07-05] MEDS: ALPRAZolam 0.5 MG TABLET PO SCH ×3 (08:18→19:47)
[2017-07-05] MEDS: DOCUSATE SODIUM 100 MG CAPSULE PO SCH ×2 (08:18→19:48)
[2017-07-05] MEDS ORDERED: NON FORMULARY ITEM (Lithium Carbonate 300 MG) PO SCH (09:00)
[2017-07-05] MEDS ORDERED: LISINOPRIL 20 MG TABLET ONE (09:00)
[2017-07-05 09:56] LABS: LI 0.6 mmol/L (0.6-1.2)
[2017-07-05 10:41] VITALS: BP 120/76
[2017-07-05 15:51] VITALS: BP 117/76
[2017-07-05] MEDS: RIVAROXABAN 10 MG TABLET. PO SCH (17:19)
[2017-07-05 19:20] VITALS: BP 145/86
[2017-07-05] MEDS: ATORVASTATIN CALCIUM 20 MG TABLET PO SCH (19:47)
[2017-07-05] MEDS: DOXEPIN HCL 25 MG CAPSULE PO SCH (19:47)
[2017-07-05] MEDS: MONTELUKAST 10 MG TABLET. PO SCH (19:48)
[2017-07-05] MEDS: risperiDONE 2 MG TABLET. PO SCH (19:48)
[2017-07-05] MEDS: rOPINIRole 1 MG TABLET. PO SCH (19:49)
[2017-07-05] MEDS ORDERED: LITHIUM CARBONATE ER 450 MG TABLET.ER PO SCH (21:00)
[2017-07-05] MEDS ORDERED: LITHIUM CARBONATE 300 MG TABLET PO SCH (21:00)
--- NOTE | 2017-07-05 21:06 | PDOC ---
Exam Note: [place] Note: Please also refer to the separate dictated note~for this date of service dictated separately.~Patient seen individually. Discussed the patient with Nursing staff reviewed the chart.~Reviewed interim history and current functioning. Reviewed vital signs,~Labs/ Radiology~and current medications noted below. Continue current treatment with the changes noted in the dictated addendum note Assessment: Vital Signs: Vital Signs Date Time Temp Pulse Resp B/P (MAP) Pulse Ox O2 Delivery O2 Flow Rate FiO2 07/05/17 19:20 98.3 72 19 145/86 (105) 97 Room Air I&O Intake and Output 07/05/17 06:59 Intake Total 1990 ml Output Total 402 ml Balance 1588 ml Intake Oral 990 ml IV Total 1000 ml Output Urine Total 400 ml Stool Total 2 ml # Voids 3 # Bowel Movements 1 Labs: Laboratory Tests Test 07/05/17 05:58 07/05/17 12:57 White Blood Count 7.0 x10^3/uL (4.0-11.0) Red Blood Count 4.03 x10^6/uL (3.50-5.40) Hemoglobin 12.1 g/dL (12.0-15.5) Hematocrit 36.3 % (36.0-47.0) Mean Corpuscular Volume 90 fL (79-100) Mean Corpuscular Hemoglobin 30 pg (25-35) Mean Corpuscular Hemoglobin Concent 33 g/dL (31-37) Red Cell Distribution Width 14.3 % (11.5-14.5) Platelet Count 211 x10^3/uL (140-400) Sodium Level 139 mmol/L (136-145) Potassium Level 3.3 mmol/L (3.5-5.1) L Chloride Level 108 mmol/L (98-107) H Carbon Dioxide Level 23 mmol/L (21-32) Anion Gap 8 (6-14) Blood Urea Nitrogen 9 mg/dL (7-20) Creatinine 1.0 mg/dL (0.6-1.0) Estimated GFR (Cockcroft-Gault) 55.6 BUN/Creatinine Ratio 9 (6-20) Glucose Level 132 mg/dL (70-99) H Calcium Level 8.5 mg/dL (8.5-10.1) Total Bilirubin 0.3 mg/dL (0.2-1.0) Aspartate Amino Transferase (AST) 19 U/L (15-37) Alanine Aminotransferase (ALT) 24 U/L (14-59) Alkaline Phosphatase 114 U/L (46-116) Lactate Dehydrogenase 138 U/L (81-234) Total Protein 5.9 g/dL (6.4-8.2) L Albumin 2.8 g/dL (3.4-5.0) L Albumin/Globulin Ratio 0.9 (1.0-1.7) L Lipase 204 U/L (73-393) [place] Level 0.6 mmol/L (0.6-1.2) [place] Last Dose Date 07/03/17 [place] Last Dose Time 0800 Clostridium difficile Toxin (PCR) Negative (Negative) Current Medications: Meds: Current Medications Ondansetron HCl (Zofran) 4 mg PRN Q4HRS PRN IV NAUSEA/VOMITING Last administered on 07/04/17 13:27; Start 07/03/17 at 14:30; Stop 07/04/17 at 14 :30; Status DC Fentanyl Citrate (Fentanyl 2ml Vial) 50 mcg PRN Q2HR PRN IV PAIN; Start at 14:30; Stop 07/04/17 at 14:30; Status DC Sodium Chloride 1,000 ml @ 125 mls/hr Q8H IV Last administered on 07/04/17 06:45; Start 07/03/17 at 14:45; Stop 07/04/17 at 14:44; Status DC Alprazolam (Xanax) 1 mg 1X ONCE PO Last administered on 07/03/17 15:05; Start 07/03/17 at 15:15; Stop 07/03/17 at 15:16; Status DC Acetaminophen (Tylenol) 650 mg PRN Q6HRS PRN PO MILD PAIN / TEMP Last administered on 07/04/17 19:26; Start 07/03/17 at 22:45 Atorvastatin Calcium (Lipitor) 20 mg QHS PO Last administered on 07/05/17 19: 47; Start 07/04/17 at 21:00 Cetirizine HCl (ZyrTEC) 10 mg DAILY PO Last administered on 07/05/17 08:18; Start 07/04/17 at 09:45 Docusate Sodium (Colace) 100 mg BID PO Last administered on 07/05/17 19:48; Start 07/04/17 at 09:45 Levothyroxine Sodium (Synthroid) 25 mcg DAILY07 PO Last administered on 06:29; Start 07/04/17 at 10:00 Montelukast Sodium (Singulair) 10 mg HS PO Last administered on 07/05/17 19: 48; Start 07/04/17 at 21:00 Pantoprazole Sodium (Protonix) 40 mg BID PO Last administered on 07/05/17 19: 47; Start 07/04/17 at 09:45 Risperidone (RisperDAL) 2 mg QHS PO Last administered on 07/05/17 19:48; Start 07/04/17 at 21:00 Ropinirole HCl (Requip) 1 mg QHS PO Last administered on 07/05/17 19:49; Start 07/04/17 at 21:00 Sertraline HCl (Zoloft) 50 mg DAILY PO Last administered on 07/05/17 08:16; Start 07/04/17 at 09:45 Alprazolam (Xanax) 1 mg TID PO Last administered on 07/05/17 19:47; Start at 14:00 Diltiazem HCl (Cardizem 24hr Cd) 240 mg DAILY PO Last administered on 08:16; Start 07/04/17 at 09:45 Doxepin HCl (SINEquan) 25 mg QHS PO Last administered on 07/05/17 19:47; Start 07/04/17 at 21:00 Non-Formulary Medication 450 mg HS PO ; Start 07/04/17 at 21:00; Stop at 21:00; Status DC Non-Formulary Medication 300 mg DAILY PO ; Start 07/05/17 at 09:00; Stop 07/05 at 09:00; Status DC Potassium Chloride (Klor-Con) 10 meq DAILYWBKFT PO Last administered on 08:16; Start 07/04/17 at 09:45 Rivaroxaban (Xarelto) 20 mg DAILYBFRSUP PO Last administered on 07/05/17 17: 19; Start 07/04/17 at 17:00 Lisinopril (Prinivil) 20 mg DAILY PO Last administered on 07/05/17 08:18; Start 07/04/17 at 09:45 Hydrochlorothiazide (Hydrodiuril) 25 mg DAILY PO Last administered on 08:18; Start 07/04/17 at 09:45 Iohexol (Omnipaque 240 Mg/ml) 50 ml STK-MED ONCE .ROUTE ; Start 07/04/17 at 16: 26; Stop 07/04/17 at 16:27; Status DC Sodium Chloride 1,000 ml @ 75 mls/hr [id number] IV Last administered on 17:19; Start 07/04/17 at 16:30 Iohexol (Omnipaque 300 Mg/ml) 75 ml 1X ONCE IV Last administered on 18:32; Start 07/04/17 at 18:15; Stop 07/04/17 at 18:17; Status DC Info (Do NOT chart on this entry -- for MONITORING) 1 each PRN DAILY PRN MC SEE COMMENTS; Start 07/04/17 at 17:45; Stop 07/06/17 at 17:44 Iohexol (Omnipaque 240 Mg/ml) 50 ml 1X ONCE PO Last administered on 18:33; Start 07/04/17 at 18:30; Stop 07/04/17 at 18:36; Status DC Info (Do NOT chart on this entry -- for MONITORING) 1 each PRN DAILY PRN MC SEE COMMENTS; Start 07/04/17 at 18:45; Stop 07/06/17 at 18:44 Ciprofloxacin (Cipro) 500 mg BID PO Last administered on 07/05/17 19:48; Start 07/04/17 at 21:00 Metronidazole (Flagyl) 500 mg Q8HRS PO Last administered on 07/05/17 14:25; Start 07/04/17 at 22:00 Enoxaparin Sodium (Lovenox) 40 mg Q24H SQ ; Start 07/04/17 at 21:00; Status UNV Ketorolac Tromethamine (Toradol) 30 mg 1X ONCE IV Last administered on 21:29; Start 07/04/17 at 21:00; Stop 07/04/17 at 21:02; Status DC Ketorolac Tromethamine (Toradol) 15 mg PRN Q6HRS PRN IV MODERATE PAIN; Start 07/04/17 at 21:00; Stop 07/09/17 at 20:59 Potassium Chloride (Klor-Con) 20 meq 1X ONCE PO Last administered on 08:16; Start 07/05/17 at 08:00; Stop 07/05/17 at 08:03; Status DC Potassium Chloride (Klor-Con) 10 meq 1X ONCE PO Last administered on 08:17; Start 07/05/17 at 08:00; Stop 07/05/17 at 08:04; Status DC [place] Carbonate (Lithobid) 150 mg DAILY PO ; Start 07/06/17 at 09:00; Stop 07/06/17 at 09:00; Status DC [place] Carbonate (Eskalith) 300 mg HS PO ; Start 07/05/17 at 21:00; Status UNV [place] Carbonate 150 mg DAILY PO ; Start 07/06/17 at 09:00 [place] Carbonate 300 mg HS PO ; Start 07/05/17 at 21:00 Active Scripts Active Reported Alprazolam 1 Mg Tablet 1 Mg PO TID Ropinirole Hcl 1 Mg Tablet 1 Mg PO QHS Zoloft (Sertraline Hcl) 50 Mg Tablet 1 Tab PO DAILY Lisinopril-Hctz 20-25 Mg Tab (Lisinopril/Hydrochlorothiazide) 1 Each Tablet 20- 25 Mg PO DAILY Xarelto (Rivaroxaban) 20 Mg Tablet 20 Mg PO DAILYBFRSUP Doxepin Hcl 50 Mg Capsule 25 Mg PO HS Cetirizine Hcl 10 Mg Tablet 10 Mg PO DAILY Risperdal (Risperidone) 2 Mg Tablet 2 Mg PO QHS [place] Carbonate 150 Mg Capsule 450 Mg PO HS [place] Carbonate 300 Mg Tablet 300 Mg PO DAILY Pantoprazole Sodium 40 Mg Tablet.dr 40 Mg PO BID Doc-Q-Lace (Docusate Sodium) 100 Mg Capsule 100 Mg PO BID Potassium Chloride 10 Meq Tablet.er 10 Meq PO DAILYWBKFT Diltiazem 24Hr ER (Diltiazem HCl) 240 Mg Tab.er.24h 240 Mg PO DAILY Atorvastatin Calcium 20 Mg Tablet 20 Mg PO QHS NOT GIVEN IN THE HOSPITAL NEXT DOSE DUE: DATE: RESTART TODAY TIME: AT BEDTIME Levothyroxine Sodium 25 Mcg Tablet 25 Mcg PO DAILY07 Singulair Tablet (Montelukast Sodium) 10 Mg Tablet 10 Mg PO HS I have reviewed the current psychotropics carefully including drug interactions. Risk benefit ratio favors no change other than as noted in my dictated progress note. Diagnosis: Problems: (1) Anxiety disorder (2) Bipolar affective disorder (3) Chronic pain syndrome (4) Delusional disorder EULALIA NANCE MD Jul 05, 2017 21:06
[2017-07-05 22:55] VITALS: BP 120/79
[2017-07-06] MEDS: ACETAMINOPHEN 325 MG TABLET PO PRN (02:05)
[2017-07-06 05:01] VITALS: BP 162/98
[2017-07-06] MEDS: metroNIDAZOLE 500 MG TABLET PO SCH (05:52)
[2017-07-06] MEDS: LEVOTHYROXINE 25 MCG TABLET. PO SCH (05:52)
[2017-07-06] MEDS: IV NORMAL SALINE 1,000ML 1,000 ML IV SCH (06:17)
[2017-07-06 08:11] LABS: BASO % 1 % (0-3); EOS # 0.2 x10^3/uL (0.0-0.7); EOS % 4 % (0-3); HEMATOCRIT 36.8 % (36.0-47.0); HEMOGLOBIN 12.4 g/dL (12.0-15.5); LYMPH # 1.3 x10^3/uL (1.0-4.8); LYMPH % 24 % (24-48); MEAN CORPUSCULAR HEMOGLOBIN 30 pg (25-35); MEAN CORPUSCULAR HGB CONC 34 g/dL (31-37); MEAN CORPUSCULAR VOLUME 89 fL (79-100); MONO # 0.3 x10^3/uL (0.0-1.1); MONO % 5 % (0-9); NEUT # 3.6 x10^3uL (1.8-7.7); NEUT % 66 % (31-73); PLATELET COUNT 186 x10^3/uL (140-400); RED BLOOD COUNT 4.12 x10^6/uL (3.50-5.40); RED CELL DISTRIBUTION WIDTH 13.7 % (11.5-14.5); WHITE BLOOD COUNT 5.4 x10^3/uL (4.0-11.0)
[2017-07-06 08:22] LABS: ALBUMIN 3.4 g/dL (3.4-5.0); ALBUMIN/GLOBULIN RATIO 1.3 (1.0-1.7); CALCIUM 9.1 mg/dL (8.5-10.1); CREATININE 0.9 mg/dL (0.6-1.0); GFR 62.8; MAGNESIUM 1.7 mg/dL (1.8-2.4); POTASSIUM 3.7 mmol/L (3.5-5.1); TOTAL BILIRUBIN 0.2 mg/dL (0.2-1.0); TOTAL PROTEIN 6.1 g/dL (6.4-8.2)
[2017-07-06] MEDS: SERTRALINE 50 MG TABLET. PO SCH (08:22)
[2017-07-06] MEDS: PANTOPRAZOLE 40 MG TABLET. PO SCH (08:22)
[2017-07-06 08:23] VITALS: BP 162/98
[2017-07-06] MEDS: LISINOPRIL 20 MG TABLET PO SCH (08:23)
[2017-07-06] MEDS: DOCUSATE SODIUM 100 MG CAPSULE PO SCH (08:23)
[2017-07-06] MEDS ORDERED: CIPR500T94 PO (08:23)
[2017-07-06] MEDS: ALPRAZolam 0.5 MG TABLET PO SCH (08:23)
[2017-07-06] MEDS ORDERED: METR500T PO (08:23)
[2017-07-06] MEDS: CETIRIZINE HCL 10 MG TABLET PO SCH (08:23)
[2017-07-06] MEDS ORDERED: LACT1CAP19 PO (08:23)
[2017-07-06] MEDS: hydroCHLOROthiazide 25 MG TABLET PO SCH (08:23)
[2017-07-06] MEDS: CIPROFLOXACIN HCL 500 MG TABLET PO SCH (08:23)
[2017-07-06] MEDS: POTASSIUM CHLORIDE 10 MEQ TABLET.ER. PO SCH (08:24)
[2017-07-06] MEDS ORDERED: POTASSIUM CHLORIDE 20 MEQ TABLET.ER. PO ONE (08:45)
[2017-07-06] MEDS ORDERED: LITHIUM CARBONATE ER 300 MG TABLET.ER PO SCH (09:00)
[2017-07-06] MEDS ORDERED: LISINOPRIL 20 MG TABLET ONE (09:00)
[2017-07-06] MEDS ORDERED: LACTOBACILLUS RHAMNOSUS GG 1 CAPSULE. PO SCH (09:00)
[2017-07-06] MEDS ORDERED: LITHIUM CARBONATE 150 MG CAPSULE. PO SCH (09:00)
[2017-07-06] MEDS ORDERED: LITH150C PO (09:23)
[2017-07-06] MEDS ORDERED: LITH300C PO (09:23)
--- NOTE | 2017-07-06 13:24 | DS ---
DATE OF DISCHARGE: 07/06/2017 DISCHARGE DIAGNOSES: 1. [place] toxicity, resolved. 2. Tremors, resolved. 3. Severe anxiety. 4. Nonspecific colitis, improved. 5. Hypokalemia, resolved. 6. Hypomagnesemia. 7. Mildly elevated TSH, suspect secondary to lithium. 8. Dehydration, improved. HOSPITAL COURSE: A 67-year-old female admitted by Dr. Kim on 07/03/2017 with severe tremors. Found to be lithium toxic. The lithium was held. The patient also had some nonspecific abdominal pain, found to have nonspecific colitis. C. diff was negative. She was treated with IV fluids and full liquids for diet. She continued to improve and was ready for discharge on 07/05/2017. Note, her blood pressure was a little bit elevated on the day of discharge, but the patient has not received her blood pressure medications as of yet. She will be discharged to home, gave her 1 week's prescription of Xanax, to receive the rest from Dr. Rodriguez. She is to continue with her Cipro and Flagyl for a week. Her lithium was adjusted by Dr. Brown to a lower dose. SHALOM RUIZ DO DR: JACKSON/fernando JOB#: [id number] / [id number] EDMUND Tolliver MD
--- NOTE | 2017-07-07 02:04 | PN ---
DATE: 07/05/2017 CURRENT PROBLEMS: 1. Nonspecific colitis. 2. [place] toxicity with tremors. 3. Hypertension. 4. Severe anxiety. 5. Hypothyroidism. 6. Hyperlipidemia. 7. Diarrhea. SUBJECTIVE: The patient is doing better today. She is having some diarrhea, which was sent for C. diff. The results are not back yet. Her lithium level is coming down nicely and her tremors have resolved almost entirely now. She is still a little queasy in the stomach and is not ready to be discharged today. OBJECTIVE: VITAL SIGNS: Blood pressure 120/76, temperature 98.2, pulse 68, respirations 20, pulse ox 98% on room air. GENERAL: Color is pale. HEENT: Tongue dry. NECK: Supple. LUNGS: Clear. CARDIOVASCULAR: Regular rhythm and rate. ABDOMEN: Soft, mildly distended. Bowel sounds are positive, little bit tender in the mid lower quadrant. Tremors not noted. IMAGING STUDIES: CT scan of the abdomen and pelvis show mild wall thickening of the sigmoid colon suggestive of nonspecific colitis. PLAN: Continue Cipro and Flagyl. She got a regular diet this morning. We will send her back to full liquids after had regular diet, had diarrhea and stomach upset. Dr. Brown will see and evaluate the appropriate dose for her lithium. We will plan on discharge tomorrow. SHALOM RUIZ DO DR: JACKSON/fernando JOB#: [id number] / [id number]
--- NOTE | 2017-07-07 06:26 | CONS ---
DATE OF CONSULTATION: 07/05/2017 PSYCHIATRIC CONSULTATION This note covers the elements not covered in my initial note of 07/05/2017. SUBJECTIVE: The patient was seen individually in the evening of 07/05/2017, room 122. Discussed with nursing staff, reviewed the chart. The patient is a 67-year-old female referred to me by Dr. Hall to monitor her lithium for bipolar disorder after she was admitted with lithium toxicity and a level of 1.4 with worsening tremors and then she had a fall and was taken to the Emergency Room and hospitalized on 07/03/2017. I have been asked to consult to make recommendations on her psychotropics before she is discharged back to the [facility] for outpatient psychiatric interventions. CHIEF COMPLAINT: "I see Maksim at the [facility]. I have been doing well, but my lithium level got high. I take Risperdal 2 mg at night, doxepin 25 mg at night, lithium carbonate 150 mg capsules 2 in the morning and 3 at night, Zoloft 50 mg a day and I was taking trazodone, but it caused me to be tired the next day and headaches, so I stopped it." HISTORY OF PRESENT ILLNESS: The patient has a long history of bipolar disorder. She has been hospitalized several times in our unit and at other facilities, but most recently has been doing reasonably well, living at home, outpatient treatment at the [facility]. As noted, she developed the tremors, the fall, was found to be lithium toxic, admitted and the lithium was discontinued. The level has now dropped down to 0.6. No clear psychotic symptoms, suicidal or homicidal ideation. PAST PSYCHIATRIC HISTORY: Positive for bipolar disorder. PAST MEDICAL HISTORY: Positive for the lithium toxicity, paroxysmal atrial fibrillation, tachybrady syndrome, history of fibromyalgia, lacunar infarct, hyperthyroidism, chronic pain syndrome, history of left leg fracture, history of over sedation, polypharmacy. PAST SURGICAL HISTORY: Cholecystectomy, hysterectomy, left leg fracture, status post open reduction and internal fixation. FAMILY HISTORY: Noncontributory. SOCIAL HISTORY: She is an ex-smoker, living with her ex-. CURRENT PSYCHOTROPICS: As noted above. CODE STATUS: Full code. ALLERGIES: CODEINE, LOSARTAN, METOCLOPRAMIDE, MORPHINE. MENTAL STATUS EXAM: The patient was seen individually the evening of 07/05/2017. She is oriented to herself, situation, seemed to recognize me, somewhat pressured in her speech. Otherwise, speech coherent, abstraction fair, computation impaired. Attention span short. She is somewhat anxious, a little suspicious, but not overtly so. No active psychotic symptoms, suicidal or homicidal ideation. LABORATORY DATA: Reviewed. [place] level 0.6. IMPRESSION: Bipolar 1 disorder, mixed with psychotic features, in partial remission; anxiety disorder, unspecified; status post lithium toxicity. Rest as above. PLAN: Since the patient's lithium was discontinued on the admission 07/03/2017. Her lithium level has dropped down to 0.6. We will restart lithium carbonate 150 mg in the morning and 300 mg at night, check a lithium level in 3 days and thereafter consider increasing the lithium. Continue rest of the psychotropics as mentioned above. Dr. Hall, thank you for the opportunity to participate in your patient's care. MAN Chantell NANCE MD DR: ELLIS/fernando JOB#: [id number] / [id number]
--- NOTE | 2017-07-07 11:22 | PN ---
DATE: 07/05/2017 CURRENT PROBLEMS: 1. [place] toxicities with tremors, which has improved. 2. Hypertension. 3. Nausea, vomiting, diarrhea with evidence of nonspecific colitis. 4. Anxiety. 5. Bipolar disorder. 6. Hypokalemia. SUBJECTIVE: The patient is doing better this morning, tremors have markedly improved. She is still having some lower abdominal pain with some cramping, diarrhea. She had regular diet this morning and then had the diarrhea, but overall is improved. OBJECTIVE: VITAL SIGNS: Temperature 98.2, pulse 68, respirations 20, blood pressure 120/76, pulse ox is 98% on room air. GENERAL: Color is pale. She is alert, appropriate. HEENT: Tongue slightly dry. NECK: Supple. LUNGS: Clear. CARDIOVASCULAR: Regular rhythm and rate. ABDOMEN: Soft, mildly protuberant, mild tenderness in the lower quadrants. EXTREMITIES: Without edema. LABORATORY DATA: Potassium 3.3, albumin is 2.8. Her TSH 6.645, most likely due to the lithium. [place] level this morning is 0.6. PLAN: Continue medications for colitis, check C. diff. Switch to full liquids for lunch. Replace her potassium and consult Dr. Brown regarding the lithium. SHALOM RUIZ DO DR: JACKSON/fernando JOB#: [id number] / [id number]
== END 2017-07-06 09:44 | disposition home or self-care (01) | DRG 93 ==
LOC: ER 13:20 → 1 SOUTH 15:41
PROVIDERS: ADMIT Internal Medicine; ATTEND Internal Medicine
DX: R25.1 Tremor, unspecified (principal); E83.42 Hypomagnesemia; I48.0 Paroxysmal atrial fibrillation; I49.5 Sick sinus syndrome; F20.9 Schizophrenia, unspecified; E86.0 Dehydration; E03.9 Hypothyroidism, unspecified; F31.77 Bipolar disorder, in partial remission, most recent episode mixed; E78.5 Hyperlipidemia, unspecified; E78.00 Pure hypercholesterolemia, unspecified; E87.6 Hypokalemia; F41.9 Anxiety disorder, unspecified; G43.909 Migraine, unspecified, not intractable, without status migrainosus; G89.4 Chronic pain syndrome; I10 Essential (primary) hypertension; K52.9 Noninfective gastroenteritis and colitis, unspecified; T43.595A Adverse effect of other antipsychotics and neuroleptics, initial encounter; M79.7 Fibromyalgia; Z86.73 Personal history of transient ischemic attack (TIA), and cerebral infarction without residual deficits; Z87.891 Personal history of nicotine dependence; Z90.49 Acquired absence of other specified parts of digestive tract; Z90.710 Acquired absence of both cervix and uterus; Z88.5 Allergy status to narcotic agent; Z88.8 Allergy status to other drugs, medicaments and biological substances; Y92.89 Other specified places as the place of occurrence of the external cause
CPT/HCPCS: 36415; 70450; 74176; 80048; 80053; 80076; 80178; 81001; 83615; 83690; 83735; 83880; 84443; 84484; 85025; 85027; 87045; 87324; 93005; J1885; J2405; Q9966; Q9967; 99285-25; J7030

== ENCOUNTER → 2017-07-27 | Outpatient (CLI) | payer MEDICARE, OTHER ==
[2017-07-06 08:23] VITALS: BP 162/98
[~2017-07-27] MED LIST changes: +ALPR1TAB6 PO; +CIPR500T94 PO; +LACT1CAP19 PO; +LISI1TAB7 PO; +METR500T PO; +ROPI1TAB2 PO; +SERT50TA PO
--- NOTE | 2017-07-28 09:12 | RAD ---
3 views right wrist 07/27/2017 Clinical indication: Right wrist pain. Comparison: Right forearm 09/17/2015. Findings: Frontal, oblique and coned frontal views of the right wrist were obtained. Lateral view was not obtained. There is diffuse osteopenia. There is an old displaced ulnar styloid fracture. Prior internal fixation of the distal radius. No evidence of acute fracture. Impression: 1. Distal right radius internal fixation which is similar in alignment, however no lateral view was obtained for the exam is somewhat limited. 2. Old displaced ulnar styloid fracture. 3. No radiographic evidence of acute wrist fracture.
== END | disposition home or self-care (01) ==
LOC: PMG 15:10
PROVIDERS: ATTEND Family Medicine
DX: M25.531 Pain in right wrist (principal); S52.611D Displaced fracture of right ulna styloid process, subsequent encounter for closed fracture with routine healing; F17.210 Nicotine dependence, cigarettes, uncomplicated; X58.XXXD Exposure to other specified factors, subsequent encounter
CPT/HCPCS: 73110

== ENCOUNTER → 2017-09-06 | Outpatient (CLI) | payer MEDICARE, OTHER ==
[2017-09-06 14:07] LABS: ALBUMIN 3.6 g/dL (3.4-5.0); CALCIUM 9.4 mg/dL (8.5-10.1); CREATININE 1.1 mg/dL (0.6-1.0); GFR 49.8; MAGNESIUM 2.2 mg/dL (1.8-2.4); POTASSIUM 4.1 mmol/L (3.5-5.1); TOTAL BILIRUBIN 0.2 mg/dL (0.2-1.0); TOTAL PROTEIN 7.1 g/dL (6.4-8.2)
--- NOTE | 2017-09-06 14:23 | RAD ---
Left foot, 3 views, 09/06/2017: History: Foot pain Comparison is made to a study from 04/11/2017. There as been previous fusion of the first tarsal-metatarsal articulation with [address] at that level. There is patchy bony demineralization. There are mild scattered degenerative changes. No acute fracture or dislocation is identified. IMPRESSION: 1. Postsurgical findings. 2. No acute left foot abnormality is detected.
[2017-09-07 14:14] LABS: LI 0.6 mmol/L (0.6-1.2)
== END | disposition home or self-care (01) ==
LOC: LAB 09:30
PROVIDERS: ATTEND Family Medicine
DX: M79.672 Pain in left foot (principal); F31.9 Bipolar disorder, unspecified; Z98.890 Other specified postprocedural states; Z98.1 Arthrodesis status
CPT/HCPCS: 36415; 73630; 80053; 80178; 83735; 84443

== ENCOUNTER → 2017-10-19 | Outpatient (CLI) | payer MEDICARE, OTHER ==
[2017-10-19 10:17] LABS: BASO # 0.1 x10^3/uL (0.0-0.2); BASO % 1 % (0-3); EOS # 0.1 x10^3/uL (0.0-0.7); EOS % 1 % (0-3); HEMATOCRIT 44.3 % (36.0-47.0); HEMOGLOBIN 14.5 g/dL (12.0-15.5); LYMPH # 1.4 x10^3/uL (1.0-4.8); LYMPH % 19 % (24-48); MEAN CORPUSCULAR HEMOGLOBIN 30 pg (25-35); MEAN CORPUSCULAR HGB CONC 33 g/dL (31-37); MEAN CORPUSCULAR VOLUME 90 fL (79-100); MONO # 0.4 x10^3/uL (0.0-1.1); MONO % 5 % (0-9); NEUT # 5.5 x10^3uL (1.8-7.7); NEUT % 74 % (31-73); PLATELET COUNT 221 x10^3/uL (140-400); RED CELL DISTRIBUTION WIDTH 13.7 % (11.5-14.5); WHITE BLOOD COUNT 7.4 x10^3/uL (4.0-11.0)
[2017-10-19 10:27] LABS: ALBUMIN 4.1 g/dL (3.4-5.0); ALBUMIN/GLOBULIN RATIO 1.1 (1.0-1.7); CALCIUM 10.4 mg/dL (8.5-10.1); CREATININE 0.9 mg/dL (0.6-1.0); GFR 62.8; POTASSIUM 3.8 mmol/L (3.5-5.1); TOTAL BILIRUBIN 0.5 mg/dL (0.2-1.0); TOTAL PROTEIN 7.8 g/dL (6.4-8.2)
[2017-10-19 14:44] LABS: FREE T4 0.86 ng/dL (0.76-1.46); THYROID STIM HORMONE (TSH) 3.9 uIU/mL (0.358-3.740)
[2017-10-19 14:50] LABS: LI 0.6 mmol/L (0.6-1.2)
[2017-10-19 22:12] LABS: PROLACTIN 110.1 ng/mL (4.8-23.3)
== END | disposition home or self-care (01) ==
LOC: LAB 09:07
PROVIDERS: ATTEND Clinical Nurse Specialist Psychiatric/Mental Health, Adult
DX: I10 Essential (primary) hypertension (principal); E78.5 Hyperlipidemia, unspecified; J44.9 Chronic obstructive pulmonary disease, unspecified; G43.709 Chronic migraine without aura, not intractable, without status migrainosus; Z79.899 Other long term (current) drug therapy
CPT/HCPCS: 36415; 80053; 80061; 80178; 84146; 84439; 84443; 84480; 85025

== ENCOUNTER → 2017-10-19 | Outpatient (CLI) | payer MEDICARE, OTHER ==
[2017-10-19 10:17] LABS: HEMATOCRIT 44.3 % (36.0-47.0); HEMOGLOBIN 14.5 g/dL (12.0-15.5); WHITE BLOOD COUNT 7.4 x10^3/uL (4.0-11.0)
[2017-10-19 10:18] LABS: BASO # 0.1 x10^3/uL (0.0-0.2); BASO % 1 % (0-3); EOS # 0.1 x10^3/uL (0.0-0.7); EOS % 1 % (0-3); LYMPH # 1.4 x10^3/uL (1.0-4.8); LYMPH % 19 % (24-48); MEAN CORPUSCULAR HEMOGLOBIN 30 pg (25-35); MEAN CORPUSCULAR HGB CONC 33 g/dL (31-37); MEAN CORPUSCULAR VOLUME 90 fL (79-100); MONO # 0.4 x10^3/uL (0.0-1.1); MONO % 5 % (0-9); NEUT # 5.5 x10^3uL (1.8-7.7); NEUT % 74 % (31-73); PLATELET COUNT 221 x10^3/uL (140-400); RED CELL DISTRIBUTION WIDTH 13.7 % (11.5-14.5)
[2017-10-19 10:30] LABS: CALCIUM 10.4 mg/dL (8.5-10.1); CREATININE 0.9 mg/dL (0.6-1.0); GFR 62.8; POTASSIUM 3.8 mmol/L (3.5-5.1)
== END | disposition home or self-care (01) ==
LOC: LAB 09:16
PROVIDERS: ATTEND Internal Medicine Cardiovascular Disease
DX: I10 Essential (primary) hypertension (principal); E78.5 Hyperlipidemia, unspecified; E78.00 Pure hypercholesterolemia, unspecified; G30.9 Alzheimer's disease, unspecified; R94.39 Abnormal result of other cardiovascular function study
CPT/HCPCS: 36415; 80048; 85025

== ENCOUNTER → 2017-10-26 | Outpatient (CLI) | payer MEDICARE, OTHER ==
--- NOTE | 2017-10-26 16:04 | RAD ---
3 views right foot 10/26/2017 Clinical indication: Great toe swelling and pain. Comparison: Left foot 09/06/2017. Findings: There is mild first MTP osteoarthritis. There is either a tiny subchondral cyst versus erosion at the medial first interphalangeal articulation. No acute fracture or traumatic malalignment. Partial visualization of distal tibia internal fixation. Impression: 1. Tiny medial first interphalangeal articulation subchondral cyst versus erosion. Clinical correlation for erosive arthropathy. 2. No acute osseous abnormality. 3. Mild first MTP osteoarthritis.
--- NOTE | 2017-10-26 16:04 | RAD ---
3 views of the lumbar spine 10/26/2017 Indication: Low back pain, chronic Comparison study: Lumbar spine radiographs April 11, 2017 Findings: No evidence of acute fracture or alignment abnormality is identified. Minimal degenerative disc space narrowing is seen at L3-S1. No spondylolysis or spondylolisthesis is seen. Facet arthrosis is noted throughout the lumbar spine. No acute soft tissue changes are identified. Prior cholecystectomy noted. Surgical clips in the left abdomen noted. Impression: Mild degenerative changes of the lumbar spine without evidence of acute osseous abnormality
== END | disposition home or self-care (01) ==
LOC: PMG 15:05
PROVIDERS: ATTEND Family Medicine
DX: M47.896 Other spondylosis, lumbar region (principal); M48.07 Spinal stenosis, lumbosacral region; M19.071 Primary osteoarthritis, right ankle and foot; I10 Essential (primary) hypertension; Z90.49 Acquired absence of other specified parts of digestive tract
CPT/HCPCS: 72100; 73660

== ENCOUNTER → 2018-02-08 | Outpatient (CLI) | payer MEDICARE, OTHER ==
[~2018-02-08] MED LIST changes: -ASPI81TA44 PO; +ASPI81TA59 PO; +CLON0.5T11 PO; -CLON0.5T3 PO; +DIVA-53 PO; -DIVA500T9 PO; +TRAZ-85 PO; +TRAZ-86 PO; -TRAZ-90 PO; -TRAZ50TA15 PO
--- NOTE | 2018-02-08 11:42 | RAD ---
EXAM: Pelvis and right hip, 3 views. HISTORY: Pain. COMPARISON: None. FINDINGS: A frontal view the pelvis and frontal and frog-leg views of the right hip are obtained. There is no fracture, dislocation or subluxation. The femoral head is normal aeration. There are right pelvic phleboliths. There is a small benign sclerotic focus within the proximal right femoral metaphysis. IMPRESSION: No acute osseous finding. Electronically signed by: Kathryn Valero MD (02/08/2018 11:38 AM) [facility]
== END | disposition home or self-care (01) ==
LOC: PMG 11:08
PROVIDERS: ATTEND Family Medicine
DX: I87.8 Other specified disorders of veins (principal); M89.8X5 Other specified disorders of bone, thigh; I10 Essential (primary) hypertension; E78.5 Hyperlipidemia, unspecified; E78.00 Pure hypercholesterolemia, unspecified; M19.071 Primary osteoarthritis, right ankle and foot; D64.9 Anemia, unspecified; E03.9 Hypothyroidism, unspecified; J44.9 Chronic obstructive pulmonary disease, unspecified; G43.709 Chronic migraine without aura, not intractable, without status migrainosus; Z87.891 Personal history of nicotine dependence; Z87.81 Personal history of (healed) traumatic fracture; Z90.49 Acquired absence of other specified parts of digestive tract; Z90.710 Acquired absence of both cervix and uterus
CPT/HCPCS: 73502

== ENCOUNTER → 2018-02-11 | Outpatient (CLI) | payer MEDICARE, OTHER | END | disposition home or self-care (01) | LOC: LAB 13:44 | PROVIDERS: ATTEND Family Medicine | DX: E55.9 Vitamin D deficiency, unspecified (principal); I10 Essential (primary) hypertension; E78.5 Hyperlipidemia, unspecified; E78.00 Pure hypercholesterolemia, unspecified; E03.9 Hypothyroidism, unspecified; E87.6 Hypokalemia; G43.909 Migraine, unspecified, not intractable, without status migrainosus; I25.10 Atherosclerotic heart disease of native coronary artery without angina pectoris; Z87.81 Personal history of (healed) traumatic fracture; Z91.81 History of falling; Z87.891 Personal history of nicotine dependence; Z90.49 Acquired absence of other specified parts of digestive tract; Z90.710 Acquired absence of both cervix and uterus | CPT/HCPCS: 82306 ==

== ENCOUNTER → 2018-02-15 | Outpatient (CLI) | payer MEDICARE, OTHER ==
--- NOTE | 2018-02-15 12:18 | RAD ---
Right hip, 2 views, 02/15/2018: HISTORY: Right hip pain No fracture or dislocation is identified. There is only minimal spurring at the right hip. The periarticular soft tissues are unremarkable. IMPRESSION: No acute right hip abnormality is detected. Electronically signed by: Jeff Ramirez MD (02/15/2018 12:14 PM) [facility]
== END | disposition home or self-care (01) ==
LOC: PMG 10:46
PROVIDERS: ATTEND Family Medicine
DX: M25.551 Pain in right hip (principal); E55.9 Vitamin D deficiency, unspecified; I10 Essential (primary) hypertension; E78.5 Hyperlipidemia, unspecified; E78.00 Pure hypercholesterolemia, unspecified; E03.8 Other specified hypothyroidism
CPT/HCPCS: 73502

== ENCOUNTER 2018-03-18 23:25 | Inpatient (IN) | payer MEDICARE, OTHER ==
[~2018-03-18] VITALS: Ht 160 cm; Wt 84.5 kg
[~2018-03-18 23:25] MED LIST changes: -AMLO5TAB2 PO; +AMLO5TAB7 PO; +DOCU-159 PO; -DOCU100C20 PO; -LOSA50TA6 PO; +LOSA50TA7 PO; -OXCA300T PO; +OXCA300T19 PO
--- NOTE | 2018-03-18 23:29 | ED.ADGEN ---
Past History Past Medical History: Anxiety, Bipolar, Constipation, Dementia, Depression, Diverticulitis, High Cholesterol, Hypertension, Hypothyroid, Migraines, Renal Disease, Schizophrenia, UTI, Other Past Surgical History: Appendectomy, Cholecystectomy, Colectomy, Hysterectomy, Other Alcohol Use: Occasionally Drug Use: None Adult General Chief Complaint Chief Complaint ".. I don't .. know.. they... told me to ... come in..." Pt. " Her doctor called me and said she had to come in .. to be admitted... and not to give her more Alpha for a while.. She is a little more confused than usual.. but she has taken her sleeping meds tonight.".." She took 10 mg of Zolipidem and one mg of Alprazolam... they may not be on the current lists of meds.." (Ex-) HPI HPI Patient is a 68 year old female who presents with above hx and complaints of toxic Alpha Level. Patient seen by her psychiatrist today. Patient had baseline follow-up labs with Psychiatry and found to have an elevated lithium level of 2.8 on review tonight. Patient normally follows with psychiatrist Dr. Coleman and Dr. Mcdaniel. Pt. see s Dr. Boykin as primary physician. Dr. Coleman called ED advised she needed admit until Alpha levels declined. Dr. Coleman ([phone]) felt pt was stable psychologically, but just needed medical observation until Alpha levels came down. Pt. Am 03/18/2018 labs also reflexed elevated BUN, creatinine, leukocytosis, elevated TSH, and a UTI.. Pt. has hx multiple abd. surg. Appendectomy, cholecystectomy, partial colon resection due to diverticulitis , hysterectomy, laparotomy for adhesions and bowel obstructions. Patient also has history of periodic episodes of dehydration ,renal insufficiency., constipation, depression, dementia, elevated cholesterol , diverticulitis, hypertension, hypothyroidism, migraines, schizophrenia, bipolar disorder, Insomnia, Restless leg syndrome and anxiety disorder.. Pt. did state her Ex - could speak for her if she was unable to speak or make decisions. Review of Systems Review of Systems Patient is a poor historian no current complaints- very sedated Constitutional: Denies fever or chills [] Eyes: Denies change in visual acuity, redness, or eye pain [] HENT: Denies nasal congestion or sore throat [] Respiratory: Denies cough or shortness of breath [] Cardiovascular: No additional information not addressed in HPI [] GI: Denies abdominal pain, nausea, vomiting, bloody stools or diarrhea [] : Denies dysuria or hematuria [] Musculoskeletal: Denies back pain or joint pain [] Integument: Denies rash or skin lesions [] Neurologic: Denies headache, focal weakness or sensory changes [] Endocrine: Denies polyuria or polydipsia [] All other systems were reviewed and found to be within normal limits, except as documented in this note. Family History Family History Not currently available Current Medications Current Medications Current Medications Medications (Trade) Dose Ordered Sig/Tracy Start Time Stop Time Status Last Admin Dose Admin Ceftriaxone Sodium (Rocephin Im) 1 gm 1X ONCE 03/19/18 00:00 03/19/18 00:39 DC 03/19/18 00:57 1 GM Sodium Chloride 1,000 ml @ 1,000 mls/hr Q1H 03/18/18 23:30 03/19/18 00:39 DC 03/19/18 00:39 1,000 MLS/HR See nursing for home meds Allergies Allergies Allergies Coded Allergies Type Severity Reaction Last Updated Verified codeine Allergy Intermediate 01/11/16 Yes metoclopramide Allergy Intermediate 08/31/16 Yes morphine Allergy Intermediate Palpitations 08/31/16 Yes losartan Adverse Reaction Intermediate mild pancreatitis 01/07/17 Yes Physical Exam Physical Exam Constitutional: no acute distress, very sedated in appearance. [] HENT: Normocephalic, atraumatic, bilateral external ears normal, oropharynx dry , no oral exudates, nose normal. [] Eyes: PERRLA, EOMI, conjunctiva normal, no discharge. [] Neck: Normal range of motion, no tenderness, supple, no stridor. Old surgical scar Cardiovascular: Bradycardia Heart rate regular rhythm, no murmur, PMI to the left Lungs & Thorax: Bilateral breath sounds equal at apexes with a few basilar crackles on auscultation [] Abdomen: Bowel sounds decreased, soft, no tenderness, no masses, no pulsatile masses. Multiple surgery scars. Mild distention Skin: Warm, dry, no erythema, no rash. Poor turgor Back: No tenderness, no CVA tenderness. [] Extremities: No tenderness, no cyanosis, no clubbing, ROM intact, no edema. . Does have stiffness and left leg and old surgery scar. Neurologic: Alert and oriented X 3 with prompting, has a shuffling gait,, moves all extremities on request. Form Tamper equal. [][]DTRs +2 at brachial and Achilles. Does have a mild essential / intentional tremor. Needs to be steaded when she walks. Psychologic: Affect flat, very sedated, mood depressed Current Patient Data Vital Signs Vital Signs Date Time Temp Pulse Resp B/P (MAP) Pulse Ox O2 Delivery O2 Flow Rate FiO2 03/18/18 23:30 98.4 73 18 93 Room Air Lab Results Laboratory Tests Test 03/18/18 23:59 White Blood Count 12.8 x10^3/uL (4.0-11.0) H Red Blood Count 4.00 x10^6/uL (3.50-5.40) Hemoglobin 12.2 g/dL (12.0-15.5) Hematocrit 37.3 % (36.0-47.0) Mean Corpuscular Volume 93 fL (79-100) Mean Corpuscular Hemoglobin 31 pg (25-35) Mean Corpuscular Hemoglobin Concent 33 g/dL (31-37) Red Cell Distribution Width 14.3 % (11.5-14.5) Platelet Count 249 x10^3/uL (140-400) Neutrophils (%) (Auto) 78 % (31-73) H Lymphocytes (%) (Auto) 14 % (24-48) L Monocytes (%) (Auto) 6 % (0-9) Eosinophils (%) (Auto) 1 % (0-3) Basophils (%) (Auto) 1 % (0-3) Neutrophils # (Auto) 9.9 x10^3uL (1.8-7.7) H Lymphocytes # (Auto) 1.8 x10^3/uL (1.0-4.8) Monocytes # (Auto) 0.8 x10^3/uL (0.0-1.1) Eosinophils # (Auto) 0.2 x10^3/uL (0.0-0.7) Basophils # (Auto) 0.1 x10^3/uL (0.0-0.2) Prothrombin Time 10.3 SEC (9.4-11.4) Prothrombin Time INR 1.0 (0.9-1.1) PTT 26 SEC (23-33) Urine Collection Type Unknown Urine Color Straw Urine Clarity Hazy Urine pH 6.0 Urine Specific [place] 1.010 Urine Protein Neg (NEG-TRACE) Urine Glucose (UA) Neg mg/dL (NEG) Urine Ketones (Stick) Neg mg/dL (NEG) Urine Blood Trace (NEG) Urine Nitrite Neg (NEG) Urine Bilirubin Neg (NEG) Urine Urobilinogen Dipstick 0.2 mg/dL (0.2 mg/dL) Urine Leukocyte Esterase Trace (NEG) Urine RBC Occ /HPF (0-2) Urine WBC 5-10 /HPF (0-4) Urine Squamous Epithelial Cells Mod /LPF Urine Bacteria Few /HPF (0-FEW) Sodium Level 136 mmol/L (136-145) Potassium Level 5.3 mmol/L (3.5-5.1) H Chloride Level 104 mmol/L (98-107) Carbon Dioxide Level 25 mmol/L (21-32) Anion Gap 7 (6-14) Blood Urea Nitrogen 42 mg/dL (7-20) H Creatinine 2.4 mg/dL (0.6-1.0) H Estimated GFR (Cockcroft-Gault) 20.2 Glucose Level 98 mg/dL (70-99) Calcium Level 9.8 mg/dL (8.5-10.1) Magnesium Level 2.6 mg/dL (1.8-2.4) H Total Bilirubin 0.4 mg/dL (0.2-1.0) Direct Bilirubin 0.1 mg/dL (0.0-0.2) Aspartate Amino Transferase (AST) 41 U/L (15-37) H Alanine Aminotransferase (ALT) 46 U/L (14-59) Alkaline Phosphatase 155 U/L (46-116) H Creatine Kinase 195 U/L (26-192) H Creatine Kinase MB (Mass) 2.4 ng/mL (0.0-3.6) Creatine Kinase MB Relative Index 1.2 % (0-4) Troponin I Quantitative < 0.017 ng/mL (0-0.055) FY-Vfq-L-Type Natriuretic Peptide 115 pg/mL (0-124) Total Protein 7.3 g/dL (6.4-8.2) Albumin 4.2 g/dL (3.4-5.0) Lipase 481 U/L (73-393) H Urine Opiates Screen Neg (NEG) Urine Methadone Screen Neg (NEG) Urine Barbiturates Pos (NEG) Urine Phencyclidine Screen Neg (NEG) Urine Amphetamine/Methamphetamine Neg (NEG) Urine Benzodiazepines Screen Pos (NEG) Urine Cocaine Screen Neg (NEG) Urine Cannabinoids Screen Neg (NEG) Urine Ethyl Alcohol Neg (NEG) EKG EKG My interpretation EKG shows a sinus rhythm at 66 bpm. There is some nonspecific T-wave changes. There is no obvious findings of acute STEMI with contralateral changes[] Radiology/Procedures Radiology/Procedures My interpretation of chest x-ray shows no acute cardiopulmonary findings. Does appear to have some basilar atelectasis. There is some blunting a left closed phrenic angle. But this is been present on previous chest x-ray films and on review of old CTs no significant lesion noted at this site.- However this could be a small area of infiltrate or pneumonia. Does have findings of hardware and neck from previous cervical surgery.[] Course & Med Decision Making Course & Med Decision Making Pertinent Labs and Imaging studies reviewed. (See chart for details) Reviewed AM labs. Labs in ED tonight where reported- and noted to be slightly hemolyzed-which may result be reflexed in the elevated potassium and some electrolyte variants. Pt. to be admitted to Dr. Kim- [] Final Impression Final Impression 1. Toxic Alpha Level[] 2.6 2. Urinary Tract Infection 3. Mental Status Change 4. Leukocytosis 5. Elevated Mag 2.6 6. Elevated Alk Phos 7. Elevated Lipase 8. Dehydration 9. Elevated Creat. and BUN 42/2.4 10. Hx Bipolar 11. Hx. Schizophrenia 12. Elevated TSH= 3,900- Hx. Hypothyroid 13. Sub Therapeutic [place] Level =11 14. Elevated potassium ( on po supplementation with home meds. ) - will hold. 15 Hx. Insomnia 16. Hx. Restless Leg Syndrome 17. Hx. Renal insufficiency Dragon Disclaimer Dragon Disclaimer This electronic medical record was generated, in whole or in part, using a voice recognition dictation system. HELLEN EVANS MD Mar 18, 2018 23:29
[2018-03-18] MEDS ORDERED: IV NORMAL SALINE 1,000ML 1,000 ML IV SCH (23:30)
[2018-03-19] MEDS ORDERED: cefTRIAXone IM 1 GM VIAL IM ONE
[2018-03-19] MEDS ORDERED: IV RINGERS SOLUTION,LACTATED 1,000 ML IV ONE (00:30)
[2018-03-19] MEDS ORDERED: ONDANSETRON PF 4 MG/2 ML VIAL. IV PRN (00:30)
[2018-03-19 00:37] LABS: BARBITURATES POS (NEG); BENZODIAZEPINES POS (NEG); CANNABINOIDS NEG (NEG); COCAINE NEG (NEG); METHADONE NEG (NEG); OPIATES NEG (NEG); PHENCYCLIDINE NEG (NEG)
[2018-03-19 00:38] LABS: AMPHETAMINE/METHAMPHETAMINE NEG (NEG)
[2018-03-19 00:40] LABS: BASO # 0.1 x10^3/uL (0.0-0.2); BASO % 1 % (0-3); EOS # 0.2 x10^3/uL (0.0-0.7); EOS % 1 % (0-3); HEMATOCRIT 37.3 % (36.0-47.0); HEMOGLOBIN 12.2 g/dL (12.0-15.5); LYMPH # 1.8 x10^3/uL (1.0-4.8); LYMPH % 14 % (24-48); MEAN CORPUSCULAR HEMOGLOBIN 31 pg (25-35); MEAN CORPUSCULAR HGB CONC 33 g/dL (31-37); MEAN CORPUSCULAR VOLUME 93 fL (79-100); MONO # 0.8 x10^3/uL (0.0-1.1); MONO % 6 % (0-9); NEUT # 9.9 x10^3uL (1.8-7.7); NEUT % 78 % (31-73); PLATELET COUNT 249 x10^3/uL (140-400); RED CELL DISTRIBUTION WIDTH 14.3 % (11.5-14.5); WHITE BLOOD COUNT 12.8 x10^3/uL (4.0-11.0)
[2018-03-19 00:45] LABS: BACTERIA,URINE FEW /HPF (0-FEW); BILIRUBIN,URINE NEG (NEG); CLARITY,URINE HAZY; COLOR,URINE STRAW; GLUCOSE,URINE NEG (NEG); NITRITE,URINE NEG (NEG); RBC,URINE OCC /HPF (0-2); SQUAMOUS EPITHELIAL CELL,UR MOD /LPF; UROBILINOGEN,URINE 0.2 mg/dL (0.2 mg/dL)
--- NOTE | 2018-03-19 01:00 | RAD ---
CT head without contrast. CT cervical spine without contrast TECHNIQUE: Noncontrast CT imaging of the head and cervical spine multiplanar reconstructions. HISTORY: Mental status change. FINDINGS: Generalized brain atrophy. No intracranial hemorrhage, mass, hydrocephalus or infarction. No acute ischemic change. Orbits, paranasal sinuses, mastoids and bones are unremarkable. IMPRESSION: No acute intracranial CT abnormality. CT cervical spine findings: No coronal reconstructions were submitted. ACDF C5-C6 with anterior plate and screws and interbody cage with bony fusion across the discectomy. Minimal 1 mm anterolisthesis of C3 and C4 associated facet arthritis. No fracture of the cervical spine. Lung apices and paraspinal tissues are unremarkable. IMPRESSION: No acute osseous injury of the cervical spine. Exposure: One or more of the following individualized dose reduction techniques were utilized for this examination: 1. Automated exposure control 2. Adjustment of the mA and/or kV according to patient size 3. Use of iterative reconstruction technique Electronically signed by: Narciso Bee MD (03/19/2018 12:57 AM) [id number]
[2018-03-19 01:04] LABS: ALBUMIN 4.2 g/dL (3.4-5.0); CALCIUM 9.8 mg/dL (8.5-10.1); CREATININE 2.4 mg/dL (0.6-1.0); DIRECT BILIRUBIN 0.1 mg/dL (0.0-0.2); GFR 20.2; MAGNESIUM 2.6 mg/dL (1.8-2.4); POTASSIUM 5.3 mmol/L (3.5-5.1); TOTAL BILIRUBIN 0.4 mg/dL (0.2-1.0); TOTAL PROTEIN 7.3 g/dL (6.4-8.2)
[2018-03-19 02:25] VITALS: BP 109/72
[2018-03-19] MEDS ORDERED: IV NORMAL SALINE 1,000ML 1,000 ML IV ONE (02:30)
[2018-03-19] MEDS ORDERED: RISP1TAB3 PO (02:48)
[2018-03-19] MEDS ORDERED: LEVO50TA5 PO (02:48)
[2018-03-19] MEDS ORDERED: METO-247 PO (02:48)
[2018-03-19] MEDS ORDERED: LAMO100T PO (02:48)
[2018-03-19] MEDS ORDERED: SERT100T8 PO (02:48)
[2018-03-19] MEDS ORDERED: LAMO200T2 PO (02:48)
[2018-03-19] MEDS ORDERED: RISP3TAB8 PO (02:48)
[2018-03-19] MEDS ORDERED: ZOLP10TA PO (02:49)
[2018-03-19 05:00] VITALS: BP 137/85
--- NOTE | 2018-03-19 05:25 | RAD ---
AP chest x-ray HISTORY: Mental status change. FINDINGS: Heart size normal. Aortic arch calcified plaque. Mild-moderate left pleural effusion and opacity of the left lateral lung base. Right lung is clear. Bones unremarkable. ACDF. IMPRESSION: Left lower lobe infiltrate and mild-moderate left pleural effusion. Electronically signed by: Narciso Bee MD (03/19/2018 5:22 AM) [id number]
[2018-03-19 11:00] VITALS: BP 109/73
[2018-03-19 11:33] LABS: CALCIUM 9.4 mg/dL (8.5-10.1); CREATININE 2.4 mg/dL (0.6-1.0); GFR 20.2; POTASSIUM 4.9 mmol/L (3.5-5.1)
--- NOTE | 2018-03-19 11:48 | HP ---
ADMIT DATE: 03/19/2018 HISTORY OF PRESENT ILLNESS: The patient is a 68-year-old female patient, who presented to the Emergency Room as she was called by her doctor and asked to come to the Emergency Room to be admitted and not to give her anymore lithium for a while. She is little more confused than usual and apparently she had lab work done that showed her lithium toxicity was in the toxic range. She was also very tremulous and stated that she was unable to hold her caps because of tremor. She was seen by her psychiatrist and her baseline follow up labs with Psychiatry and found to have an elevated lithium level of 2.8. The patient normally follows with a psychiatrist, Dr. Maurer's and Dr. Figueroa. She sees Dr. Rodriguez, primary care physician and Dr. Maurer, psychiatrist called the Emergency Department and advised that she needs to be admitted until lithium level declined. He felt that she is stable psychologically, but just needed medical observation until lithium comes back and down. Incidentally, her lab work also showed that she has markedly elevated BUN and creatinine, leukocytosis, elevated TSH and UTI. On questioning, the patient said that she has had nausea, but no vomiting. She also complained of diarrhea. Her blood lithium level was 2.8. PAST MEDICAL HISTORY: Significant for paroxysmal atrial fibrillation, tachybrady syndrome, anxiety, depression, history of fibromyalgia, lacunar infarct, hyperthyroidism, chronic pain syndrome, history of left leg fracture, history of oversedation and also polypharmacy. PAST SURGICAL HISTORY: Significant for cholecystectomy, hysterectomy, left leg fracture, status post open reduction and internal fixation. ALLERGIES: She is allergic to CODEINE, METOCLOPRAMIDE, and MORPHINE. FAMILY HISTORY: Unremarkable. SOCIAL HISTORY: She is living with her ex-. She is an ex-smoker. She does not smoke anymore. She does not drink alcohol or use any recreational drugs. MEDICATIONS: She is currently on following medications: She is on cetirizine 10 mg once a day, rivaroxaban 20 mg daily, atorvastatin calcium 20 mg at bedtime, metoprolol succinate 100 mg once a day, diltiazem 240 mg extended release once a day, lisinopril/hydrochlorothiazide 20/25 one tablet once a day, lamotrigine 100 mg daily, lamotrigine 200 mg at bedtime, sertraline 100 mg daily, risperidone 3 mg at bedtime, risperidone 1 mg daily. She is on alprazolam 1 mg 3 times a day, Ambien 10 mg at bedtime. She is on Requip 1 mg at bedtime. She is on potassium chloride 10 mEq once a day, docusate sodium 100 mg twice a day, Protonix 40 mg once a day, levothyroxine 50 mcg once a day. REVIEW OF SYSTEMS: The patient denied any blurring of vision, cataract, glaucoma or macular degeneration. Denied any earache, tinnitus or sensorineural deafness. Denied any nosebleeds, stuffy nose or postnasal drip. Denied any sore throat, sore tongue, toothache, hoarseness of voice or difficulty swallowing. She did complain of nausea, but no vomiting. She did complain of diarrhea, but no constipation. Denied any hematemesis, melena, or hematochezia. Denied any dysuria, frequency or hematuria. PHYSICAL EXAMINATION: GENERAL: On arrival to the Emergency Room, the patient was somewhat pale, but no jaundice or cyanosis. No lymphadenopathy, no thyromegaly. No jugular venous distension. No lower limb edema. VITAL SIGNS: Her heart rate was 70, blood pressure was 109/72, temperature was 98.1, respiratory rate 20, and oxygen saturation was 97% on room air. HEAD, EYES, EARS, NOSE AND THROAT: Showed normocephalic, atraumatic. NECK: Supple. HEART: Showed normal first and second heart sounds with no gallop, rub or murmur. CHEST: Clear to auscultation. No crepitation or rhonchi. ABDOMEN: Distended, soft, nontender. No guarding or rigidity. No organomegaly. All hernial orifice intact. Bowel sounds normal. NEUROLOGIC: She is awake, alert, responding appropriately. All cranial nerves intact. EXTREMITIES: She moves extremities without difficulty. LABORATORY DATA: On arrival showed a serum sodium 136, potassium 5.3, chloride 104, bicarbonate 25, anion gap of 7, BUN 42, creatinine 2.4, estimated GFR was 20 mL per minute. Her glucose was 98, calcium was 9.8, magnesium was 2.6. Total bilirubin 0.4, AST, ALT were normal. Alkaline phosphatase slightly elevated. CK was slightly elevated at 195. Her total protein was 7.3, albumin was 4.2. Her serum lipase was 481 and TSH was 5.106. Her white cell count was 12,800, hemoglobin 12, hematocrit 37, MCV 93, and platelet count 249,000. Her prothrombin time was 10.3, INR of 1, aPTT was 26. Urinalysis showed the urine was straw colored, hazy with a pH of 6, specific gravity of 1.010. The urine was negative for protein, glucose. There was trace of blood, negative for nitrite. There was trace of leukocyte esterase, occasional rbc's, 5-10 wbc's, very few bacteria. Her toxicology screen showed that her lithium was 2.4. Her toxic screen was positive for barbiturates and benzodiazepine. IMPRESSION: In summary, this is a 68-year-old female patient, who was admitted with altered mental status and lithium toxicity. She was found to have also acute kidney injury, hyperkalemia. Her serum lipase was high also at 481. Mild leukocytosis. PLAN: My plan is to continue with aggressive treatment, IV fluid to reverse her acute kidney injury. Hold her lithium. I will also hold her lisinopril and hydrochlorothiazide. We will follow her closely and in consultation with the psychiatrist. We will start her back on lithium once the liver is within therapeutic range. KRISTOFER NAJERA MD DR: CASSANDRA/fernando JOB#: [id number] / [id number]
[2018-03-19] MEDS: LEVOTHYROXINE 50 MCG TABLET PO SCH (13:39)
[2018-03-19] MEDS: cefTRIAXone IV Push 1 GM VIAL. IVP SCH (13:39)
[2018-03-19] MEDS: LACTOBACILLUS RHAMNOSUS GG 1 CAPSULE. PO SCH ×2 (13:39→20:51)
[2018-03-19 16:00] VITALS: BP 118/78
[2018-03-19 19:30] VITALS: BP 109/69
[2018-03-19] MEDS: risperiDONE 1 MG TABLET. PO SCH (20:51)
[2018-03-19] MEDS: lamoTRIgine 100 MG TABLET. PO SCH (20:51)
[2018-03-19] MEDS: ATORVASTATIN CALCIUM 20 MG TABLET PO SCH (20:52)
[2018-03-19] MEDS: ALPRAZolam 0.5 MG TABLET PO SCH (20:52)
[2018-03-19] MEDS: rOPINIRole 1 MG TABLET. PO SCH (20:52)
[2018-03-19] MEDS: ZOLPIDEM 5 MG TABLET. PO PRN (20:55)
[2018-03-19] MEDS: IV NORMAL SALINE 1,000ML 1,000 ML IV SCH (21:00)
[2018-03-19 22:58] VITALS: BP 102/69
[2018-03-20] MEDS: IV NORMAL SALINE 1,000ML 1,000 ML IV SCH ×3 (03:57→17:23)
[2018-03-20] MEDS: ACETAMINOPHEN 325 MG TABLET PO PRN ×3 (03:57→17:18)
[2018-03-20] MEDS: LEVOTHYROXINE 50 MCG TABLET PO SCH (05:30)
[2018-03-20 05:57] VITALS: BP 100/71
[2018-03-20 06:39] LABS: BASO % 0 % (0-3); EOS # 0.1 x10^3/uL (0.0-0.7); EOS % 2 % (0-3); HEMATOCRIT 33.7 % (36.0-47.0); HEMOGLOBIN 11.3 g/dL (12.0-15.5); LYMPH # 1.7 x10^3/uL (1.0-4.8); LYMPH % 21 % (24-48); MEAN CORPUSCULAR HEMOGLOBIN 31 pg (25-35); MEAN CORPUSCULAR HGB CONC 34 g/dL (31-37); MEAN CORPUSCULAR VOLUME 93 fL (79-100); MONO # 0.4 x10^3/uL (0.0-1.1); MONO % 5 % (0-9); NEUT # 5.9 x10^3uL (1.8-7.7); NEUT % 72 % (31-73); PLATELET COUNT 192 x10^3/uL (140-400); RED BLOOD COUNT 3.63 x10^6/uL (3.50-5.40); RED CELL DISTRIBUTION WIDTH 13.8 % (11.5-14.5); WHITE BLOOD COUNT 8.1 x10^3/uL (4.0-11.0)
[2018-03-20 06:55] LABS: CREATININE 1.5 mg/dL (0.6-1.0); GFR 34.7; POTASSIUM 4.2 mmol/L (3.5-5.1)
[2018-03-20] MEDS: LACTOBACILLUS RHAMNOSUS GG 1 CAPSULE. PO SCH ×2 (07:50→20:55)
[2018-03-20] MEDS: risperiDONE 1 MG TABLET. PO SCH ×2 (07:50→21:11)
[2018-03-20] MEDS: CETIRIZINE HCL 10 MG TABLET PO SCH (07:50)
[2018-03-20] MEDS: lamoTRIgine 100 MG TABLET. PO SCH ×2 (07:50→20:55)
[2018-03-20] MEDS: SERTRALINE 100 MG TABLET. PO SCH (07:50)
[2018-03-20] MEDS: ALPRAZolam 0.5 MG TABLET PO SCH ×3 (07:51→20:54)
[2018-03-20] MEDS: cefTRIAXone IV Push 1 GM VIAL. IVP SCH (10:32)
[2018-03-20 11:08] VITALS: BP 124/77
--- NOTE | 2018-03-20 12:22 | PN ---
DATE: 03/20/2018 SUBJECTIVE: The patient is sitting comfortably in her chair, eating her breakfast comfortably, in no apparent distress. She continued to have some tremors and still has poor appetite, but generally feeling much better. She slept very well last night. PHYSICAL EXAMINATION: GENERAL: When I examined her this morning, she looked somewhat pale, but no jaundice, cyanosis, or thyromegaly. No jugular venous distention. No limb edema. VITAL SIGNS: Her heart rate was 77, blood pressure 100/71, temperature was 99, respiratory rate was 16, and oxygen saturation was 94%. HEAD, EYES, EARS, NOSE, AND THROAT: Showed normocephalic, atraumatic. NECK: Supple. HEART: Showed normal first and second heart sounds with no gallop, rub, or murmur. CHEST: Clear to auscultation. No crepitation or rhonchi. ABDOMEN: Distended, soft, nontender. No guarding or rigidity. No organomegaly. All hernial orifices intact. Bowel sounds normal. NEUROLOGIC: She is more awake, alert, responding appropriately. Cranial nerves intact. She moves extremities without difficulty. Her intake over the last 24 hours was 4925, no output was recorded. LABORATORY DATA: Her labwork as of this morning showed a serum sodium 138, potassium 4.2, chloride 108, bicarbonate 22, anion gap of 8, BUN 26, creatinine 1.5, estimated GFR was 35 mL per minute. Her glucose was 99, calcium was 9. Her white cell count was 8100, hemoglobin 11, hematocrit 33, MCV 93, and platelet count of 192,000. ASSESSMENT: 1. Altered mental status with lithium toxicity. 2. Acute kidney injury. 3. Hyperkalemia. 4. Acute pancreatitis. PLAN: To continue with IV fluid. Continue with IV ceftriaxone for possible urinary tract infection. Continue to hold the lithium. I have repeated her serum lipase and lithium this morning the results of which are still pending at the time of this dictation. I would also consult Dr. Brown for adjustment of her lithium. KRISTOFER NAJERA MD DR: CASSANDRA/fernando JOB#: [id number] / [id number]
[2018-03-20 15:00] VITALS: BP 139/82
--- NOTE | 2018-03-20 19:54 | PDOC ---
Exam Note: [place] Note: Please also refer to the separate dictated note~for this date of service dictated separately.~Patient seen individually. Discussed the patient with Nursing staff reviewed the chart.~Reviewed interim history and current functioning. Reviewed vital signs,~Labs/ Radiology~and current medications noted below. Continue current treatment with the changes noted in the dictated addendum note Assessment: Vital Signs: Vital Signs Date Time Temp Pulse Resp B/P (MAP) Pulse Ox O2 Delivery O2 Flow Rate FiO2 03/20/18 15:00 98.4 101 20 139/82 (101) 95 Room Air I&O Intake and Output 03/20/18 07:00 Intake Total 4925 ml Output Total 6 ml Balance 4919 ml Intake Oral 2260 ml IV Total 2665 ml Output Urine Total 6 ml # Voids 7 # Bowel Movements 3 Labs: Laboratory Tests Test 03/20/18 06:05 White Blood Count 8.1 x10^3/uL (4.0-11.0) Red Blood Count 3.63 x10^6/uL (3.50-5.40) Hemoglobin 11.3 g/dL (12.0-15.5) L Hematocrit 33.7 % (36.0-47.0) L Mean Corpuscular Volume 93 fL (79-100) Mean Corpuscular Hemoglobin 31 pg (25-35) Mean Corpuscular Hemoglobin Concent 34 g/dL (31-37) Red Cell Distribution Width 13.8 % (11.5-14.5) Platelet Count 192 x10^3/uL (140-400) Neutrophils (%) (Auto) 72 % (31-73) Lymphocytes (%) (Auto) 21 % (24-48) L Monocytes (%) (Auto) 5 % (0-9) Eosinophils (%) (Auto) 2 % (0-3) Basophils (%) (Auto) 0 % (0-3) Neutrophils # (Auto) 5.9 x10^3uL (1.8-7.7) Lymphocytes # (Auto) 1.7 x10^3/uL (1.0-4.8) Monocytes # (Auto) 0.4 x10^3/uL (0.0-1.1) Eosinophils # (Auto) 0.1 x10^3/uL (0.0-0.7) Basophils # (Auto) 0.0 x10^3/uL (0.0-0.2) Sodium Level 138 mmol/L (136-145) Potassium Level 4.2 mmol/L (3.5-5.1) Chloride Level 108 mmol/L (98-107) H Carbon Dioxide Level 22 mmol/L (21-32) Anion Gap 8 (6-14) Blood Urea Nitrogen 26 mg/dL (7-20) H Creatinine 1.5 mg/dL (0.6-1.0) H Estimated GFR (Cockcroft-Gault) 34.7 Glucose Level 99 mg/dL (70-99) Calcium Level 9.0 mg/dL (8.5-10.1) Lipase 391 U/L (73-393) [place] Level 1.4 mmol/L (0.6-1.2) H [place] Last Dose Date 03/18/18 [place] Last Dose Time 2100 Current Medications: Meds: Current Medications Sodium Chloride 1,000 ml @ 1,000 mls/hr Q1H IV Last administered on 03/19/18at 00:39; Start 03/18/18 at 23:30; Stop 03/19/18 at 00:39; Status DC Ceftriaxone Sodium (Rocephin Im) 1 gm 1X ONCE IM Last administered on at 00:57; Start 03/19/18 at 00:00; Stop 03/19/18 at 00:39; Status DC Ondansetron HCl (Zofran) 4 mg PRN Q4HRS PRN IV NAUSEA/VOMITING; Start 03/19/18 at 00:30; Stop 03/20/18 at 00:29; Status DC Lactated Ringer's 1,000 ml @ 100 mls/hr 1X ONCE IV ; Start 03/19/18 at 00:30; Stop 03/19/18 at 10:29; Status DC Ceftriaxone Sodium 1 gm/ Sodium Chloride 50 ml @ 100 mls/hr DAILY IV ; Start at 09:00; Status UNV Ceftriaxone Sodium (Rocephin) 1 gm Q24H IVP Last administered on 03/20/18at 10:32 ; Start 03/19/18 at 09:00 Sodium Chloride 1,000 ml @ 160 mls/hr 1X ONCE IV Last administered on at 02:30; Start 03/19/18 at 02:30; Stop 03/19/18 at 08:44; Status DC Levothyroxine Sodium (Synthroid) 50 mcg DAILY07 PO Last administered on 05:30; Start 03/19/18 at 07:00 Lactobacillus Rhamnosus (Culturelle) 1 cap BID PO Last administered on 07:50; Start 03/19/18 at 09:00 Atorvastatin Calcium (Lipitor) 20 mg QHS PO Last administered on 03/19/18 20:52 ; Start 03/19/18 at 21:00 Sertraline HCl (Zoloft) 100 mg DAILY PO Last administered on 03/20/18 07:50; Start 03/20/18 at 09:00 Alprazolam (Xanax) 1 mg TID PO Last administered on 03/20/18 15:24; Start at 21:00 Cetirizine HCl (ZyrTEC) 10 mg DAILY PO Last administered on 03/20/18 07:50; Start 03/20/18 at 09:00 Lamotrigine (LaMICtal) 100 mg DAILY PO Last administered on 03/20/18 07:50; Start 03/20/18 at 09:00 Lamotrigine (LaMICtal) 200 mg QHS PO Last administered on 03/19/18 20:51; Start 03/19/18 at 21:00 Pantoprazole Sodium (Protonix) 40 mg BID PO ; Start 03/20/18 at 21:00 Risperidone (RisperDAL) 1 mg DAILY PO Last administered on 03/20/18 07:50; Start 03/20/18 at 09:00 Risperidone (RisperDAL) 3 mg QHS PO Last administered on 03/19/18 20:51; Start 03/19/18 at 21:00 Ropinirole HCl (Requip) 1 mg QHS PO Last administered on 03/19/18 20:52; Start 03/19/18 at 21:00 Zolpidem Tartrate (Ambien) 10 mg PRN QHS PRN PO INSOMNIA Last administered on 20:55; Start 03/19/18 at 17:30 Sodium Chloride 1,000 ml @ 150 mls/hr Q6H40M IV Last administered on 9/9/18at 17:23; Start 03/19/18 at 21:00 Acetaminophen (Tylenol) 650 mg PRN Q6HRS PRN PO PAIN / TEMP Last administered on 03/20/18at 17:18; Start 03/20/18 at 04:00 Active Scripts Active Reported Ambien (Zolpidem Tartrate) 10 Mg Tablet 10 Mg PO PRN QHS PRN Lamotrigine 200 Mg Tablet 200 Mg PO QHS Metoprolol Succinate ( Xl ) (Metoprolol Succinate) 100 Mg Tab.er.24h 100 Mg PO DAILY Risperidone 1 Mg Tablet 1 Mg PO DAILY Lamotrigine 100 Mg Tablet 100 Mg PO DAILY Sertraline Hcl 100 Mg Tablet 100 Mg PO DAILY Risperidone 3 Mg Tab.rapdis 3 Mg PO QHS Levothyroxine Sodium 50 Mcg Tablet 50 Mcg PO DAILYAC Alprazolam 1 Mg Tablet 1 Mg PO TID Ropinirole Hcl 1 Mg Tablet 1 Mg PO QHS Lisinopril-Hctz 20-25 Mg Tab (Lisinopril/Hydrochlorothiazide) 1 Each Tablet 20- 25 Mg PO DAILY Xarelto (Rivaroxaban) 20 Mg Tablet 20 Mg PO DAILYBFRSUP Cetirizine Hcl 10 Mg Tablet 10 Mg PO DAILY Pantoprazole Sodium 40 Mg Tablet.dr 40 Mg PO BID Doc-Q-Lace (Docusate Sodium) 100 Mg Capsule 100 Mg PO BID Potassium Chloride 10 Meq Tablet.er 10 Meq PO DAILYWBKFT Diltiazem 24Hr ER (Diltiazem HCl) 240 Mg Tab.er.24h 240 Mg PO DAILY Atorvastatin Calcium 20 Mg Tablet 20 Mg PO QHS NOT GIVEN IN THE HOSPITAL NEXT DOSE DUE: DATE: RESTART TODAY TIME: AT BEDTIME I have reviewed the current psychotropics carefully including drug interactions. Risk benefit ratio favors no change other than as noted in my dictated progress note. Diagnosis: Problems: (1) Bipolar affective, mixed, sev w/ psych (2) Anxiety disorder (3) [place] toxicity (4) Anxiety disorder EULALIA NANCE MD Mar 20, 2018 19:54
[2018-03-20 19:58] VITALS: BP 120/75
[2018-03-20] MEDS: ATORVASTATIN CALCIUM 20 MG TABLET PO SCH (20:55)
[2018-03-20] MEDS: PANTOPRAZOLE 40 MG TABLET. PO SCH (20:55)
[2018-03-20] MEDS: ZOLPIDEM 5 MG TABLET. PO PRN (21:11)
[2018-03-20] MEDS: rOPINIRole 1 MG TABLET. PO SCH (21:11)
[2018-03-20 23:34] VITALS: BP 134/80
[2018-03-21] MEDS: IV NORMAL SALINE 1,000ML 1,000 ML IV SCH ×4 (01:29→21:26)
[2018-03-21 05:35] VITALS: BP 133/78
[2018-03-21] MEDS: LEVOTHYROXINE 50 MCG TABLET PO SCH (06:12)
[2018-03-21 06:51] LABS: CALCIUM 8.8 mg/dL (8.5-10.1); CREATININE 0.9 mg/dL (0.6-1.0); GFR 62.6; POTASSIUM 4.5 mmol/L (3.5-5.1)
--- NOTE | 2018-03-21 06:55 | EKG ---
[address] [address] Test Date: 2018-03-19 Test Time: 00:06:05 Pat Name: PORTIA MERINO Department: Room: 117 A Gender: F [employer]: : [id number] Requested By: HELLEN EVANS Order Number: [id number] Reading MD: Oscar Whelan MD Measurements Intervals [place] Rate: 66 P: 60 WV: 192 QRS: 34 QRSD: 80 T: 68 QT: 390 QTc: 411 Interpretive Statements SINUS RHYTHM Electronically Signed On 03-22-2018 12:10:48 CDT by Oscar Whelan MD
[2018-03-21] MEDS: cefTRIAXone IV Push 1 GM VIAL. IVP SCH (08:46)
[2018-03-21] MEDS: CETIRIZINE HCL 10 MG TABLET PO SCH (08:48)
[2018-03-21] MEDS: SERTRALINE 100 MG TABLET. PO SCH (08:48)
[2018-03-21] MEDS: risperiDONE 1 MG TABLET. PO SCH ×2 (08:48→21:28)
[2018-03-21] MEDS: PANTOPRAZOLE 40 MG TABLET. PO SCH ×2 (08:48→21:28)
[2018-03-21] MEDS: ALPRAZolam 0.5 MG TABLET PO SCH ×3 (08:48→21:29)
[2018-03-21] MEDS: LACTOBACILLUS RHAMNOSUS GG 1 CAPSULE. PO SCH ×2 (08:48→21:27)
[2018-03-21] MEDS: lamoTRIgine 100 MG TABLET. PO SCH ×2 (08:48→21:28)
[2018-03-21 11:16] VITALS: BP 151/90
--- NOTE | 2018-03-21 14:35 | PDOC ---
SUBJECTIVE: Ms. Singh was sleeping and not interested in her lunch. She is very tired and sluggish. OBJECTIVE: Problems: Problems Medical Problems: (1) [place] toxicity Status: Acute Vital Signs: Vital Signs Date Time Temp Pulse Resp B/P (MAP) Pulse Ox O2 Delivery O2 Flow Rate FiO2 03/21/18 11:16 98.7 94 20 151/90 (110) 94 Room Air I & O Intake and Output 03/21/18 07:00 Intake Total 4305.7 ml Balance 4305.7 ml Intake Oral 600 ml IV Total 3705.7 ml # Voids 7 # Bowel Movements 1 Labs: Laboratory Tests Test 03/20/18 06:05 03/21/18 06:33 White Blood Count 8.1 x10^3/uL (4.0-11.0) Red Blood Count 3.63 x10^6/uL (3.50-5.40) Hemoglobin 11.3 g/dL (12.0-15.5) Hematocrit 33.7 % (36.0-47.0) Mean Corpuscular Volume 93 fL (79-100) Mean Corpuscular Hemoglobin 31 pg (25-35) Mean Corpuscular Hemoglobin Concent 34 g/dL (31-37) Red Cell Distribution Width 13.8 % (11.5-14.5) Platelet Count 192 x10^3/uL (140-400) Neutrophils (%) (Auto) 72 % (31-73) Lymphocytes (%) (Auto) 21 % (24-48) Monocytes (%) (Auto) 5 % (0-9) Eosinophils (%) (Auto) 2 % (0-3) Basophils (%) (Auto) 0 % (0-3) Neutrophils # (Auto) 5.9 x10^3uL (1.8-7.7) Lymphocytes # (Auto) 1.7 x10^3/uL (1.0-4.8) Monocytes # (Auto) 0.4 x10^3/uL (0.0-1.1) Eosinophils # (Auto) 0.1 x10^3/uL (0.0-0.7) Basophils # (Auto) 0.0 x10^3/uL (0.0-0.2) Sodium Level 138 mmol/L (136-145) 141 mmol/L (136-145) Potassium Level 4.2 mmol/L (3.5-5.1) 4.5 mmol/L (3.5-5.1) [place] Level 108 mmol/L (98-107) 111 mmol/L (98-107) Carbon Dioxide Level 22 mmol/L (21-32) 19 mmol/L (21-32) Anion Gap 8 (6-14) 11 (6-14) Blood Urea Nitrogen 26 mg/dL (7-20) 11 mg/dL (7-20) Creatinine 1.5 mg/dL (0.6-1.0) 0.9 mg/dL (0.6-1.0) Estimated GFR (Cockcroft-Gault) 34.7 62.6 Glucose Level 99 mg/dL (70-99) 111 mg/dL (70-99) Calcium Level 9.0 mg/dL (8.5-10.1) 8.8 mg/dL (8.5-10.1) Lipase 391 U/L (73-393) [place] Level 1.4 mmol/L (0.6-1.2) [place] Last Dose Date 03/18/18 [place] Last Dose Time 2100 ASSESSMENT: Altered mental status with lithium toxicity Acute kidney injury Hyperkalemia Pancreatitis PLAN: Continue present treatments and check morning labs including lithium. Dr Brown consulted and appreciate assistance with lithium dosing Encourage patient out of bed NERISSA MOHAN DO Mar 21, 2018 14:35
[2018-03-21 15:34] VITALS: BP 172/84
[2018-03-21] MEDS: ACETAMINOPHEN 325 MG TABLET PO PRN (16:43)
[2018-03-21] MEDS: RIVAROXABAN 10 MG TABLET. PO SCH (16:43)
--- NOTE | 2018-03-21 18:57 | PDOC ---
Exam Note: [place] Note: Please also refer to the separate dictated note~for this date of service dictated separately.~Patient seen individually. Discussed the patient with Nursing staff reviewed the chart.~Reviewed interim history and current functioning. Reviewed vital signs,~Labs/ Radiology~and current medications noted below. Continue current treatment with the changes noted in the dictated addendum note Assessment: Vital Signs: Vital Signs Date Time Temp Pulse Resp B/P (MAP) Pulse Ox O2 Delivery O2 Flow Rate FiO2 03/21/18 15:34 99.0 92 20 172/84 (113) 96 Room Air I&O Intake and Output 03/21/18 07:00 Intake Total 4305.7 ml Balance 4305.7 ml Intake Oral 600 ml IV Total 3705.7 ml # Voids 7 # Bowel Movements 1 Labs: Laboratory Tests Test 03/21/18 06:33 Sodium Level 141 mmol/L (136-145) Potassium Level 4.5 mmol/L (3.5-5.1) Chlor[place] Level 111 mmol/L (98-107) H Carbon Dioxide Level 19 mmol/L (21-32) L Anion Gap 11 (6-14) Blood Urea Nitrogen 11 mg/dL (7-20) Creatinine 0.9 mg/dL (0.6-1.0) Estimated GFR (Cockcroft-Gault) 62.6 Glucose Level 111 mg/dL (70-99) H Calcium Level 8.8 mg/dL (8.5-10.1) Current Medications: Meds: Current Medications Sodium Chloride 1,000 ml @ 1,000 mls/hr Q1H IV Last administered on 03/19/18at 00:39; Start 03/18/18 at 23:30; Stop 03/19/18 at 00:39; Status DC Ceftriaxone Sodium (Rocephin Im) 1 gm 1X ONCE IM Last administered on at 00:57; Start 03/19/18 at 00:00; Stop 03/19/18 at 00:39; Status DC Ondansetron HCl (Zofran) 4 mg PRN Q4HRS PRN IV NAUSEA/VOMITING; Start 03/19/18 at 00:30; Stop 03/20/18 at 00:29; Status DC Lactated Ringer's 1,000 ml @ 100 mls/hr 1X ONCE IV ; Start 03/19/18 at 00:30; Stop 03/19/18 at 10:29; Status DC Ceftriaxone Sodium 1 gm/ Sodium Chloride 50 ml @ 100 mls/hr DAILY IV ; Start at 09:00; Status UNV Ceftriaxone Sodium (Rocephin) 1 gm Q24H IVP Last administered on 03/21/18 08: 46; Start 03/19/18 at 09:00 Sodium Chloride 1,000 ml @ 160 mls/hr 1X ONCE IV Last administered on at 02:30; Start 03/19/18 at 02:30; Stop 03/19/18 at 08:44; Status DC Levothyroxine Sodium (Synthroid) 50 mcg DAILY07 PO Last administered on 06:12; Start 03/19/18 at 07:00 Lactobacillus Rhamnosus (Culturelle) 1 cap BID PO Last administered on 08:48; Start 03/19/18 at 09:00 Atorvastatin Calcium (Lipitor) 20 mg QHS PO Last administered on 03/20/18 20:55 ; Start 03/19/18 at 21:00 Sertraline HCl (Zoloft) 100 mg DAILY PO Last administered on 03/21/18 08:48; Start 03/20/18 at 09:00 Alprazolam (Xanax) 1 mg TID PO Last administered on 03/21/18 14:03; Start 03/19 at 21:00 Cetirizine HCl (ZyrTEC) 10 mg DAILY PO Last administered on 03/21/18 08:48; Start 03/20/18 at 09:00 Lamotrigine (LaMICtal) 100 mg DAILY PO Last administered on 03/21/18 08:48; Start 03/20/18 at 09:00 Lamotrigine (LaMICtal) 200 mg QHS PO Last administered on 03/20/18 20:55; Start 03/19/18 at 21:00 Pantoprazole Sodium (Protonix) 40 mg BID PO Last administered on 03/21/18 08: 48; Start 03/20/18 at 21:00 Risperidone (RisperDAL) 1 mg DAILY PO Last administered on 03/21/18 08:48; Start 03/20/18 at 09:00 Risperidone (RisperDAL) 3 mg QHS PO Last administered on 03/20/18 21:11; Start 03/19/18 at 21:00 Ropinirole HCl (Requip) 1 mg QHS PO Last administered on 03/20/18 21:11; Start 03/19/18 at 21:00 Zolpidem Tartrate (Ambien) 10 mg PRN QHS PRN PO INSOMNIA Last administered on 21:11; Start 03/19/18 at 17:30 Sodium Chloride 1,000 ml @ 150 mls/hr Q6H40M IV Last administered on 15:03; Start 03/19/18 at 21:00 Acetaminophen (Tylenol) 650 mg PRN Q6HRS PRN PO PAIN / TEMP Last administered on 03/21/18 16:43; Start 03/20/18 at 04:00 Rivaroxaban (Xarelto) 20 mg DAILYBFRSUP PO Last administered on 03/21/18 16:43 ; Start 03/21/18 at 17:00 Active Scripts Active Reported Ambien (Zolpidem Tartrate) 10 Mg Tablet 10 Mg PO PRN QHS PRN Lamotrigine 200 Mg Tablet 200 Mg PO QHS Metoprolol Succinate ( Xl ) (Metoprolol Succinate) 100 Mg Tab.er.24h 100 Mg PO DAILY Risperidone 1 Mg Tablet 1 Mg PO DAILY Lamotrigine 100 Mg Tablet 100 Mg PO DAILY Sertraline Hcl 100 Mg Tablet 100 Mg PO DAILY Risperidone 3 Mg Tab.rapdis 3 Mg PO QHS Levothyroxine Sodium 50 Mcg Tablet 50 Mcg PO DAILYAC Alprazolam 1 Mg Tablet 1 Mg PO TID Ropinirole Hcl 1 Mg Tablet 1 Mg PO QHS Lisinopril-Hctz 20-25 Mg Tab (Lisinopril/Hydrochlorothiazide) 1 Each Tablet 20- 25 Mg PO DAILY Xarelto (Rivaroxaban) 20 Mg Tablet 20 Mg PO DAILYBFRSUP Cetirizine Hcl 10 Mg Tablet 10 Mg PO DAILY Pantoprazole Sodium 40 Mg Tablet.dr 40 Mg PO BID Doc-Q-Lace (Docusate Sodium) 100 Mg Capsule 100 Mg PO BID Potassium Chloride 10 Meq Tablet.er 10 Meq PO DAILYWBKFT Diltiazem 24Hr ER (Diltiazem HCl) 240 Mg Tab.er.24h 240 Mg PO DAILY Atorvastatin Calcium 20 Mg Tablet 20 Mg PO QHS NOT GIVEN IN THE HOSPITAL NEXT DOSE DUE: DATE: RESTART TODAY TIME: AT BEDTIME I have reviewed the current psychotropics carefully including drug interactions. Risk benefit ratio favors no change other than as noted in my dictated progress note. Diagnosis: Problems: (1) [place] toxicity (2) Bipolar affective disorder (3) Impulse control disorder (4) Urinary tract infection EULALIA NANCE MD Mar 21, 2018 18:57
[2018-03-21 19:56] VITALS: BP 164/88
[2018-03-21] MEDS: ATORVASTATIN CALCIUM 20 MG TABLET PO SCH (21:28)
[2018-03-21] MEDS: rOPINIRole 1 MG TABLET. PO SCH (21:29)
[2018-03-21 22:43] VITALS: BP 170/83
--- NOTE | 2018-03-21 23:32 | CONS ---
DATE OF CONSULTATION: 03/20/2018 This is a late entry for 03/20/2018 and covers elements not covered in my initial note 03/20/2018. The patient was seen individually evening of 03/20/2018 for this consultation, requested by Dr. Kim. IDENTIFYING DATA: The patient is a 68-year-old female who is admitted with lithium toxicity, lithium level approximately 2.4 and I have been asked to consult and make recommendations from a psychiatric standpoint by Dr. Kim. The patient seen individually, discussed with nursing staff, reviewed the chart. I have known the patient in the past, treated her as an inpatient on the [facility] and she is followed at the [facility] for her bipolar disorder since then with Otis Caicedo APRN, monitoring her lithium for the bipolar disorder. CHIEF COMPLAINT: "Dr. Lemus called me on Wednesday evening that my lithium level was very high and I had to go to the hospital. I was having shakes and could not find words and was more confused and scared." HISTORY OF PRESENT ILLNESS: The patient has a long history of bipolar disorder and has been treated on lithium, followed at the [facility] for extended period of time. She presented to the ER with increased confusion, lithium level 2.8, was tremulous. Her primary care physician is Dr. Rodriguez. Additionally, her BUN and creatinine were elevated with leukocytosis, elevated TSH and a UTI. She had complained of nausea and some diarrhea. [place] level 2.8. No suicidal or homicidal ideation. PAST PSYCHIATRIC HISTORY: Long history of bipolar disorder. PAST MEDICAL HISTORY: Paroxysmal atrial fibrillation, UTI, lithium toxicity, tachybrady syndrome, history of fibromyalgia, lacunar infarcts, hyperthyroidism, chronic pain syndrome, history of left leg fracture, history of over sedation, polypharmacy. PAST SURGICAL HISTORY: Cholecystectomy, hysterectomy, left leg fracture, status post open reduction and internal fixation. ALLERGIES: CODEINE, METOCLOPRAMIDE, MORPHINE. FAMILY HISTORY: Unremarkable. SOCIAL HISTORY: The patient lives with her ex-, Andi. She is an ex-smoker, does not smoke anymore. No alcohol use or drug use. MENTAL STATUS EXAMINATION: The patient was seen individually in her room. She readily recognized me. She complains of having word-finding problems, anxious, able to give relevant history. Speech coherent, abstraction fair, computation impaired. Attention span short. Language function intact. Mood and affect somewhat anxious, labile. No suicidal or homicidal ideation. LABORATORY DATA: Reviewed. IMPRESSION: [place] toxicity and bipolar 1 disorder, mixed with history of psychotic features, UTI, anxiety disorder, unspecified. Rest psychotropics as above. PLAN: I have carefully reviewed the patient's current psychotropics. She is currently not taking any lithium, remains on Ambien 10 mg at bedtime p.r.n., Zoloft 100 mg daily, Risperdal 1 mg a.m. and 3 mg at bedtime, Lamotrigine 100 mg a.m. and 200 at bedtime, Xanax 1 mg 3 times a day. We will continue her current psychotropics. Defer to Dr. Kim to manage her medically. [place] level is down to 1.4. Dr. Kim, thank you for the opportunity to participate in your patient's care. MAN Chantell NANCE MD DR: ELLIS/fernando JOB#: [id number] / [id number]
[2018-03-21] MEDS: ZOLPIDEM 5 MG TABLET. PO PRN (23:38)
[2018-03-22] MEDS: IV NORMAL SALINE 1,000ML 1,000 ML IV SCH ×3 (02:20→12:39)
[2018-03-22] MEDS: ACETAMINOPHEN 325 MG TABLET PO PRN ×2 (04:05→12:36)
[2018-03-22 05:40] VITALS: BP 166/77
[2018-03-22 07:25] LABS: BASO % 0 % (0-3); EOS # 0.1 x10^3/uL (0.0-0.7); EOS % 2 % (0-3); HEMATOCRIT 34.4 % (36.0-47.0); HEMOGLOBIN 11.4 g/dL (12.0-15.5); LYMPH # 1.2 x10^3/uL (1.0-4.8); LYMPH % 15 % (24-48); MEAN CORPUSCULAR HEMOGLOBIN 31 pg (25-35); MEAN CORPUSCULAR HGB CONC 33 g/dL (31-37); MEAN CORPUSCULAR VOLUME 93 fL (79-100); MONO # 0.4 x10^3/uL (0.0-1.1); MONO % 6 % (0-9); NEUT # 6.2 x10^3uL (1.8-7.7); NEUT % 78 % (31-73); PLATELET COUNT 179 x10^3/uL (140-400); RED BLOOD COUNT 3.71 x10^6/uL (3.50-5.40); RED CELL DISTRIBUTION WIDTH 14.1 % (11.5-14.5)
[2018-03-22 07:48] LABS: ALBUMIN 3.3 g/dL (3.4-5.0); ALBUMIN/GLOBULIN RATIO 1.3 (1.0-1.7); CALCIUM 8.8 mg/dL (8.5-10.1); GFR 55.5; POTASSIUM 3.7 mmol/L (3.5-5.1); TOTAL BILIRUBIN 0.3 mg/dL (0.2-1.0); TOTAL PROTEIN 5.9 g/dL (6.4-8.2)
[2018-03-22] MEDS: LACTOBACILLUS RHAMNOSUS GG 1 CAPSULE. PO SCH (08:28)
[2018-03-22] MEDS: ALPRAZolam 0.5 MG TABLET PO SCH ×2 (08:28→12:54)
[2018-03-22] MEDS: risperiDONE 1 MG TABLET. PO SCH (08:28)
[2018-03-22] MEDS: ONDANSETRON ODT 4 MG TAB.RAPDIS PO PRN ×2 (08:28→12:37)
[2018-03-22] MEDS: CETIRIZINE HCL 10 MG TABLET PO SCH (08:28)
[2018-03-22] MEDS: SERTRALINE 100 MG TABLET. PO SCH (08:28)
[2018-03-22] MEDS: LEVOTHYROXINE 50 MCG TABLET PO SCH (08:28)
[2018-03-22] MEDS: PANTOPRAZOLE 40 MG TABLET. PO SCH (08:28)
[2018-03-22] MEDS: lamoTRIgine 100 MG TABLET. PO SCH (08:28)
[2018-03-22] MEDS: cefTRIAXone IV Push 1 GM VIAL. IVP SCH (08:29)
[2018-03-22 10:43] VITALS: BP 156/80
[2018-03-22] MEDS ORDERED: METOPROLOL SUCC 24HR ER 50 MG TAB.ER.24H. PO SCH (13:00)
--- NOTE | 2018-03-22 13:54 | PDOC ---
SUBJECTIVE: On initial evaluation today I find the patient more alert sitting up in a chair no longer complaining of tremors and speech is much more clear. Her appetite is slowly improving and she is expressing some anxiety about lithium as she would prefer to take a different medication. Her renal function has normalized with hydration and she feels her hands are slightly swollen so IV fluids will be discontinued. [place] level is now low at 0.4, will await Dr Brown input as to bipolar medications. After having seen the patient while rounding on others her nervous notifies me that she has now reverted to RVR. She complains of some anxiety and mild nausea denies actual chest pain. On telemetry rate vacillates from the 140s to 160s. I requested that her nurse give her home diltiazem and metoprolol dose by mouth. After about 40 minutes patient's rate normalizes to the 80s. OBJECTIVE: Problems: Problems Medical Problems: (1) [place] toxicity Status: Acute Vital Signs: Vital Signs Date Time Temp Pulse Resp B/P (MAP) Pulse Ox O2 Delivery O2 Flow Rate FiO2 03/22/18 12:37 147 156/80 03/22/18 10:43 98.9 20 95 Room Air I & O Intake and Output 03/22/18 07:00 Intake Total 3468 ml Balance 3468 ml Intake Oral 510 ml IV Total 2958 ml # Voids 7 Labs: Laboratory Tests Test 03/21/18 06:33 03/22/18 07:17 Sodium Level 141 mmol/L (136-145) 144 mmol/L (136-145) Potassium Level 4.5 mmol/L (3.5-5.1) 3.7 mmol/L (3.5-5.1) [place] Level 111 mmol/L (98-107) 112 mmol/L (98-107) Carbon Dioxide Level 19 mmol/L (21-32) 22 mmol/L (21-32) Anion Gap 11 (6-14) 10 (6-14) Blood Urea Nitrogen 11 mg/dL (7-20) 7 mg/dL (7-20) Creatinine 0.9 mg/dL (0.6-1.0) 1.0 mg/dL (0.6-1.0) Estimated GFR (Cockcroft-Gault) 62.6 55.5 Glucose Level 111 mg/dL (70-99) 114 mg/dL (70-99) Calcium Level 8.8 mg/dL (8.5-10.1) 8.8 mg/dL (8.5-10.1) White Blood Count 8.0 x10^3/uL (4.0-11.0) Red Blood Count 3.71 x10^6/uL (3.50-5.40) Hemoglobin 11.4 g/dL (12.0-15.5) Hematocrit 34.4 % (36.0-47.0) Mean Corpuscular Volume 93 fL (79-100) Mean Corpuscular Hemoglobin 31 pg (25-35) Mean Corpuscular Hemoglobin Concent 33 g/dL (31-37) Red Cell Distribution Width 14.1 % (11.5-14.5) Platelet Count 179 x10^3/uL (140-400) Neutrophils (%) (Auto) 78 % (31-73) Lymphocytes (%) (Auto) 15 % (24-48) Monocytes (%) (Auto) 6 % (0-9) Eosinophils (%) (Auto) 2 % (0-3) Basophils (%) (Auto) 0 % (0-3) Neutrophils # (Auto) 6.2 x10^3uL (1.8-7.7) Lymphocytes # (Auto) 1.2 x10^3/uL (1.0-4.8) Monocytes # (Auto) 0.4 x10^3/uL (0.0-1.1) Eosinophils # (Auto) 0.1 x10^3/uL (0.0-0.7) Basophils # (Auto) 0.0 x10^3/uL (0.0-0.2) BUN/Creatinine Ratio 7 (6-20) Total Bilirubin 0.3 mg/dL (0.2-1.0) Aspartate Amino Transf (AST/SGOT) 33 U/L (15-37) Alanine Aminotransferase (ALT/SGPT) 44 U/L (14-59) Alkaline Phosphatase 141 U/L (46-116) Total Protein 5.9 g/dL (6.4-8.2) Albumin 3.3 g/dL (3.4-5.0) Albumin/Globulin Ratio 1.3 (1.0-1.7) Lipase 310 U/L (73-393) [place] Level 0.4 mmol/L (0.6-1.2) [place] Last Dose Date 03/18/18 [place] Last Dose Time 2100 Physical Exam: Gen.: Initially alert and oriented in no apparent distress, increased anxiety with increased heart rate noted HEENT: Normocephalic atraumatic, PERRLA, EOMI, conjunctiva clear, mucous membranes moist Neck: Supple nontender Cardiovascular: Normal S1 and S2 no murmur Pulmonary: Lungs are clear bilaterally no respiratory distress Extremities: 1+ lower extremity edema, nontender Neuro: Alert and oriented 3, cranial nerves II through XII grossly intact, no lateralizing neuro deficits ASSESSMENT: [place] toxicity: Improved subtherapeutic level today 0.4 Acute pancreatitis: Improved lipase today 310 DC IV fluids and start clear liquids Atrial fibrillation with RVR: Rate control with home meds Acute kidney injury: Renal function normalized with hydration Hyperkalemia: Improved potassium 3.7 today Bipolar disorder: Await Dr Brown recommendation for meds/possible discharge or senior behavioral admission tomorrow NERISSA MOHAN DO Mar 22, 2018 13:54
[2018-03-22 15:44] VITALS: BP 135/82
[2018-03-22] MEDS: RIVAROXABAN 10 MG TABLET. PO SCH (17:37)
--- NOTE | 2018-03-22 18:42 | PDOC ---
Exam Note: Dixon Note: Please also refer to the separate dictated note~for this date of service dictated separately.~Patient seen individually. Discussed the patient with Nursing staff reviewed the chart.~Reviewed interim history and current functioning. Reviewed vital signs,~Labs/ Radiology~and current medications noted below. Continue current treatment with the changes noted in the dictated addendum note Assessment: Vital Signs: Vital Signs Date Time Temp Pulse Resp B/P (MAP) Pulse Ox O2 Delivery O2 Flow Rate FiO2 03/22/18 15:44 98.9 69 20 135/82 (99) 96 Room Air I&O Intake and Output 03/22/18 07:00 Intake Total 3468 ml Balance 3468 ml Intake Oral 510 ml IV Total 2958 ml # Voids 7 Labs: Laboratory Tests Test 03/22/18 07:17 White Blood Count 8.0 x10^3/uL (4.0-11.0) Red Blood Count 3.71 x10^6/uL (3.50-5.40) Hemoglobin 11.4 g/dL (12.0-15.5) L Hematocrit 34.4 % (36.0-47.0) L Mean Corpuscular Volume 93 fL (79-100) Mean Corpuscular Hemoglobin 31 pg (25-35) Mean Corpuscular Hemoglobin Concent 33 g/dL (31-37) Red Cell Distribution Width 14.1 % (11.5-14.5) Platelet Count 179 x10^3/uL (140-400) Neutrophils (%) (Auto) 78 % (31-73) H Lymphocytes (%) (Auto) 15 % (24-48) L Monocytes (%) (Auto) 6 % (0-9) Eosinophils (%) (Auto) 2 % (0-3) Basophils (%) (Auto) 0 % (0-3) Neutrophils # (Auto) 6.2 x10^3uL (1.8-7.7) Lymphocytes # (Auto) 1.2 x10^3/uL (1.0-4.8) Monocytes # (Auto) 0.4 x10^3/uL (0.0-1.1) Eosinophils # (Auto) 0.1 x10^3/uL (0.0-0.7) Basophils # (Auto) 0.0 x10^3/uL (0.0-0.2) Sodium Level 144 mmol/L (136-145) Potassium Level 3.7 mmol/L (3.5-5.1) Chloride Level 112 mmol/L (98-107) H Carbon Dioxide Level 22 mmol/L (21-32) Anion Gap 10 (6-14) Blood Urea Nitrogen 7 mg/dL (7-20) Creatinine 1.0 mg/dL (0.6-1.0) Estimated GFR (Cockcroft-Gault) 55.5 BUN/Creatinine Ratio 7 (6-20) Glucose Level 114 mg/dL (70-99) H Calcium Level 8.8 mg/dL (8.5-10.1) Total Bilirubin 0.3 mg/dL (0.2-1.0) Aspartate Amino Transferase (AST) 33 U/L (15-37) Alanine Aminotransferase (ALT) 44 U/L (14-59) Alkaline Phosphatase 141 U/L (46-116) H Total Protein 5.9 g/dL (6.4-8.2) L Albumin 3.3 g/dL (3.4-5.0) L Albumin/Globulin Ratio 1.3 (1.0-1.7) Lipase 310 U/L (73-393) [place] Level 0.4 mmol/L (0.6-1.2) L [place] Last Dose Date 03/18/18 [place] Last Dose Time 2100 Current Medications: Meds: Current Medications Sodium Chloride 1,000 ml @ 1,000 mls/hr Q1H IV Last administered on 03/19/18at 00:39; Start 03/18/18 at 23:30; Stop 03/19/18 at 00:39; Status DC Ceftriaxone Sodium (Rocephin Im) 1 gm 1X ONCE IM Last administered on at 00:57; Start 03/19/18 at 00:00; Stop 03/19/18 at 00:39; Status DC Ondansetron HCl (Zofran) 4 mg PRN Q4HRS PRN IV NAUSEA/VOMITING; Start 03/19/18 at 00:30; Stop 03/20/18 at 00:29; Status DC Lactated Ringer's 1,000 ml @ 100 mls/hr 1X ONCE IV ; Start 03/19/18 at 00:30; Stop 03/19/18 at 10:29; Status DC Ceftriaxone Sodium 1 gm/ Sodium Chloride 50 ml @ 100 mls/hr DAILY IV ; Start at 09:00; Status UNV Ceftriaxone Sodium (Rocephin) 1 gm Q24H IVP Last administered on 03/22/18 08: 29; Start 03/19/18 at 09:00 Sodium Chloride 1,000 ml @ 160 mls/hr 1X ONCE IV Last administered on 02:30; Start 03/19/18 at 02:30; Stop 03/19/18 at 08:44; Status DC Levothyroxine Sodium (Synthroid) 50 mcg DAILY07 PO Last administered on 08:28; Start 03/19/18 at 07:00 Lactobacillus Rhamnosus (Culturelle) 1 cap BID PO Last administered on 08:28; Start 03/19/18 at 09:00 Atorvastatin Calcium (Lipitor) 20 mg QHS PO Last administered on 03/21/18 21: 28; Start 03/19/18 at 21:00 Sertraline HCl (Zoloft) 100 mg DAILY PO Last administered on 03/22/18 08:28; Start 03/20/18 at 09:00 Alprazolam (Xanax) 1 mg TID PO Last administered on 03/22/18 12:54; Start 03/19 at 21:00 Cetirizine HCl (ZyrTEC) 10 mg DAILY PO Last administered on 03/22/18 08:28; Start 03/20/18 at 09:00 Lamotrigine (LaMICtal) 100 mg DAILY PO Last administered on 03/22/18 08:28; Start 03/20/18 at 09:00 Lamotrigine (LaMICtal) 200 mg QHS PO Last administered on 03/21/18 21:28; Start 03/19/18 at 21:00 Pantoprazole Sodium (Protonix) 40 mg BID PO Last administered on 03/22/18 08: 28; Start 03/20/18 at 21:00 Risperidone (RisperDAL) 1 mg DAILY PO Last administered on 03/22/18 08:28; Start 03/20/18 at 09:00 Risperidone (RisperDAL) 3 mg QHS PO Last administered on 03/21/18 21:28; Start 03/19/18 at 21:00 Ropinirole HCl (Requip) 1 mg QHS PO Last administered on 03/21/18 21:29; Start 03/19/18 at 21:00 Zolpidem Tartrate (Ambien) 10 mg PRN QHS PRN PO INSOMNIA Last administered on 23:38; Start 03/19/18 at 17:30 Sodium Chloride 1,000 ml @ 150 mls/hr Q6H40M IV Last administered on at 08:32; Start 03/19/18 at 21:00; Stop 03/22/18 at 16:26; Status DC Acetaminophen (Tylenol) 650 mg PRN Q6HRS PRN PO PAIN / TEMP Last administered on 03/22/18at 12:36; Start 03/20/18 at 04:00 Rivaroxaban (Xarelto) 20 mg DAILYBFRSUP PO Last administered on 03/22/18at 17:37 ; Start 03/21/18 at 17:00 Ondansetron HCl (Zofran Odt) 4 mg PRN Q8HRS PRN PO NAUSEA/VOMITING Last administered on 03/22/18at 12:37; Start 03/22/18 at 08:00 Diltiazem HCl (Cardizem 24hr Cd) 240 mg DAILY PO Last administered on at 12:36; Start 03/22/18 at 13:00 Metoprolol Succinate (Toprol Xl) 100 mg DAILY PO Last administered on at 12:37; Start 03/22/18 at 13:00 Potassium Chloride (Klor-Con) 10 meq DAILYWBKFT PO ; Start 03/23/18 at 08:00 Docusate Sodium (Colace) 100 mg BID PO ; Start 03/22/18 at 21:00 Lisinopril (Prinivil) 20 mg DAILY PO ; Start 03/23/18 at 09:00 Hydrochlorothiazide (Hydrodiuril) 25 mg DAILY PO ; Start 03/23/18 at 09:00 Active Scripts Active Reported Ambien (Zolpidem Tartrate) 10 Mg Tablet 10 Mg PO PRN QHS PRN Lamotrigine 200 Mg Tablet 200 Mg PO QHS Metoprolol Succinate ( Xl ) (Metoprolol Succinate) 100 Mg Tab.er.24h 100 Mg PO DAILY Risperidone 1 Mg Tablet 1 Mg PO DAILY Lamotrigine 100 Mg Tablet 100 Mg PO DAILY Sertraline Hcl 100 Mg Tablet 100 Mg PO DAILY Risperidone 3 Mg Tab.rapdis 3 Mg PO QHS Levothyroxine Sodium 50 Mcg Tablet 50 Mcg PO DAILYAC Alprazolam 1 Mg Tablet 1 Mg PO TID Ropinirole Hcl 1 Mg Tablet 1 Mg PO QHS Lisinopril-Hctz 20-25 Mg Tab (Lisinopril/Hydrochlorothiazide) 1 Each Tablet 1 Tab PO DAILY Xarelto (Rivaroxaban) 20 Mg Tablet 20 Mg PO DAILYBFRSUP Cetirizine Hcl 10 Mg Tablet 10 Mg PO DAILY Pantoprazole Sodium 40 Mg Tablet.dr 40 Mg PO BID Doc-Q-Lace (Docusate Sodium) 100 Mg Capsule 100 Mg PO BID Potassium Chloride 10 Meq Tablet.er 10 Meq PO DAILYWBKFT Diltiazem 24Hr ER (Diltiazem HCl) 240 Mg Tab.er.24h 240 Mg PO DAILY Atorvastatin Calcium 20 Mg Tablet 20 Mg PO QHS NOT GIVEN IN THE HOSPITAL NEXT DOSE DUE: DATE: RESTART TODAY TIME: AT BEDTIME I have reviewed the current psychotropics carefully including drug interactions. Risk benefit ratio favors no change other than as noted in my dictated progress note. Diagnosis: Problems: (1) Bipolar affective, mixed, sev w/ psych (2) Anxiety disorder (3) [place] toxicity EULALIA NANCE MD Mar 22, 2018 18:42
[2018-03-22 19:00] VITALS: BP 119/74
[2018-03-22] MEDS ORDERED: DOCUSATE SODIUM 100 MG CAPSULE PO SCH (21:00)
--- NOTE | 2018-03-22 22:09 | PN ---
DATE: 03/21/2018 This late entry, 03/21/2018, covers elements not covered in my initial note. SUBJECTIVE: I met with the patient in the evening at some length. Per nursing report, the patient is doing better. Her lithium level will be repeated 03/21/2018 but the last level was 1.4, improved from 2.8 at admission. The patient states the tremors are better. REVIEW OF SYSTEMS: Still positive for the tremors. Impaired ambulation, word finding problems. No CV, , pulmonary, eye system symptoms on review. MENTAL STATUS EXAM: Reasonably oriented. Speech coherent, somewhat pressured. Abstraction fair, computation impaired, language function intact. Attention span short. No psychotic symptoms, suicidal, or homicidal ideation. LABORATORY DATA: Reviewed. IMPRESSION: [place] toxicity, bipolar 1 disorder, mixed by history. PLAN: No change from a psychiatric standpoint. Hold the lithium. Once the level is back to normal, she may have to be started on a much lower dosage. She has done well on lithium in the past and if this cannot be used again, perhaps Depakote may be an option or Trileptal. Rest unchanged for now. MAN Chantell NANCE MD DR: ELLIS/fernando JOB#: [id number] / [id number]
[2018-03-22 22:39] VITALS: BP 155/89
[2018-03-23] MEDS ORDERED: POTASSIUM CHLORIDE 10 MEQ TABLET.ER. PO SCH (08:00)
[2018-03-23] MEDS ORDERED: LISINOPRIL 20 MG TABLET PO SCH (09:00)
[2018-03-23] MEDS ORDERED: hydroCHLOROthiazide 25 MG TABLET PO SCH (09:00)
--- NOTE | 2018-03-23 23:05 | PN ---
DATE: 03/22/2018 This late entry, 03/22/2018, covers elements not covered in my initial note. SUBJECTIVE: I met with the patient in the evening. Discussed with nursing staff. The patient's lithium level is down to 0.4. She is less tremulous and she was ambulating in her room a bit, met with her evening of 03/22/2018. She remains a little hyperverbal, but not manic. No psychotic symptoms, suicidal or homicidal ideation. REVIEW OF SYSTEMS: No CV, , pulmonary, eye, ENT system symptoms on review. MENTAL STATUS EXAM: The patient is reasonably oriented. She readily recognized me. Speech as noted slightly pressured, but fairly appropriate. Abstraction fair, computation somewhat impaired. She still has some word finding problems. Again, no psychotic symptoms, suicidal or homicidal ideation. LABORATORY DATA: Reviewed. IMPRESSION: Unchanged from initial note. [place] toxicity, bipolar 1 disorder, mixed anxiety disorder, unspecified. PLAN: [place] level is down to 0.4 and she will be followed up at the [facility] outpatient. I will defer to them to either restart her on lithium or an alternate mood stabilizer. She has had some hepatic dysfunction in the past and therefore, Depakote cannot be used. Options would be Tegretol or Trileptal. At the time of this dictation, during the day on 03/23/2018, she was discharged, went to the [facility], they could not see her for medication evaluation and I was called by Angie Vang RN because the ex-, Andi, was quite insistent that she be on some mood stabilizer. Given the risk/benefit ratio of lithium, we opted not to do this and I suggested starting Trileptal 300 mg twice a day and then she can be followed at the [facility]. Further decisions made on this by them. Again, no suicidal or homicidal ideation at discharge and she seemed to be recovering from the lithium toxicity. EULALIA NANCE MD DR: ELLIS/fernando JOB#: [id number] / [id number]
== END 2018-03-22 22:17 | disposition home or self-care (01) | DRG 917 ==
LOC: ER 23:25 → 1 SOUTH 03-19 00:20
PROVIDERS: ADMIT Internal Medicine; ATTEND Internal Medicine
DX: T56.891A Toxic effect of other metals, accidental (unintentional), initial encounter (principal); K85.90 Acute pancreatitis without necrosis or infection, unspecified; N17.9 Acute kidney failure, unspecified; N39.0 Urinary tract infection, site not specified; F31.64 Bipolar disorder, current episode mixed, severe, with psychotic features; E78.00 Pure hypercholesterolemia, unspecified; E87.5 Hyperkalemia; F03.90 Unspecified dementia, unspecified severity, without behavioral disturbance, psychotic disturbance, mood disturbance, and anxiety; F41.9 Anxiety disorder, unspecified; F63.9 Impulse disorder, unspecified; G25.81 Restless legs syndrome; G89.4 Chronic pain syndrome; I10 Essential (primary) hypertension; I48.0 Paroxysmal atrial fibrillation; E05.90 Thyrotoxicosis, unspecified without thyrotoxic crisis or storm; I49.5 Sick sinus syndrome; E86.0 Dehydration; M79.7 Fibromyalgia; Z86.73 Personal history of transient ischemic attack (TIA), and cerebral infarction without residual deficits; Z87.891 Personal history of nicotine dependence; Z90.49 Acquired absence of other specified parts of digestive tract; Z90.710 Acquired absence of both cervix and uterus; Z88.5 Allergy status to narcotic agent; Z88.8 Allergy status to other drugs, medicaments and biological substances; Y92.89 Other specified places as the place of occurrence of the external cause
CPT/HCPCS: 36415; 70450; 71045; 72125; 80048; 80053; 80076; 80178; 80307; 81001; 82553; 83690; 83735; 83880; 84443; 84484; 85025; 85610; 85730; 87086; 93005; 96360; 96372; G0238; J0696; Q0162; 99285-25; G0479; J7030

== ENCOUNTER → 2018-05-30 | Outpatient (CLI) | payer MEDICARE, OTHER ==
[~2018-05-30] MED LIST changes: +HYDR-3165 PO; -HYDR-971 PO; +LAMO100T PO; +LAMO200T2 PO; +METO-247 PO; +RISP1TAB3 PO; +RISP3TAB8 PO; +SERT100T8 PO; +ZOLP10TA PO
--- NOTE | 2018-05-30 16:05 | RAD ---
4 view left shoulder study Clinical indications: Rotator cuff surgery in 2016. History of fracture of the left shoulder. Continued pain in left shoulder. COMPARISON: No previous shoulder x-ray available. FINDINGS: No acute fracture or dislocation or osteolytic process is seen. There is calcification of the acromiohumeral space. 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 No AC joint separation is evident. IMPRESSION: Calcification of the acromiohumeral space. This may be secondary to dystrophic calcification from previous surgery or could be seen with calcium hydroxyapatite deposition disease. Electronically signed by: Lane Medrano MD (05/30/2018 4:02 PM) [facility]
== END | disposition home or self-care (01) ==
LOC: RAD 09:49
PROVIDERS: ATTEND Orthopaedic Surgery Sports Medicine
DX: M19.112 Post-traumatic osteoarthritis, left shoulder (principal)
CPT/HCPCS: 73030

== ENCOUNTER → 2018-06-20 | Outpatient (CLI) | payer MEDICARE, OTHER ==
[~2018-06-20] MED LIST changes: -DILT120C80 PO; +DILT120C85 PO; +HYDR-2155 PO; -HYDR-2758 PO; -HYDR-2762 PO; +HYDR-2765 PO; -LOSA50TA7 PO; +LOSA50TA86 PO
[2018-06-20 11:26] LABS: ALBUMIN 3.6 g/dL (3.4-5.0); ALBUMIN/GLOBULIN RATIO 1.2 (1.0-1.7); CALCIUM 9.3 mg/dL (8.5-10.1); CREATININE 0.8 mg/dL (0.6-1.0); GFR 71.8; POTASSIUM 3.9 mmol/L (3.5-5.1); TOTAL BILIRUBIN 0.4 mg/dL (0.2-1.0); TOTAL PROTEIN 6.6 g/dL (6.4-8.2)
== END | disposition home or self-care (01) ==
LOC: LAB 09:38
PROVIDERS: ATTEND Nurse Practitioner
DX: E78.5 Hyperlipidemia, unspecified (principal)
CPT/HCPCS: 36415; 80053; 80061

== ENCOUNTER → 2018-06-20 | Outpatient (CLI) | payer MEDICARE, OTHER ==
[2018-06-20 11:06] LABS: BASO # 0.1 x10^3/uL (0.0-0.2); BASO % 2 % (0-3); EOS # 0.1 x10^3/uL (0.0-0.7); EOS % 1 % (0-3); HEMATOCRIT 44.7 % (36.0-47.0); HEMOGLOBIN 13.9 g/dL (12.0-15.5); LYMPH # 1.6 x10^3/uL (1.0-4.8); LYMPH % 24 % (24-48); MEAN CORPUSCULAR HEMOGLOBIN 30 pg (25-35); MEAN CORPUSCULAR HGB CONC 31 g/dL (31-37); MEAN CORPUSCULAR VOLUME 95 fL (79-100); MONO # 0.4 x10^3/uL (0.0-1.1); MONO % 6 % (0-9); NEUT # 4.5 x10^3uL (1.8-7.7); NEUT % 68 % (31-73); PLATELET COUNT 185 x10^3/uL (140-400); RED CELL DISTRIBUTION WIDTH 14.8 % (11.5-14.5); WHITE BLOOD COUNT 6.6 x10^3/uL (4.0-11.0)
[2018-06-20 11:19] LABS: ALBUMIN 3.6 g/dL (3.4-5.0); ALBUMIN/GLOBULIN RATIO 1.2 (1.0-1.7); CALCIUM 9.3 mg/dL (8.5-10.1); CREATININE 0.8 mg/dL (0.6-1.0); GFR 71.8; POTASSIUM 3.9 mmol/L (3.5-5.1); TOTAL BILIRUBIN 0.4 mg/dL (0.2-1.0); TOTAL PROTEIN 6.6 g/dL (6.4-8.2)
== END | disposition home or self-care (01) ==
LOC: LAB 09:31
PROVIDERS: ATTEND Clinical Nurse Specialist Psychiatric/Mental Health, Adult
DX: Z79.899 Other long term (current) drug therapy (principal)
CPT/HCPCS: 36415; 80053; 80061; 84146; 85025

== ENCOUNTER → 2018-08-01 | Outpatient (CLI) | payer MEDICARE, OTHER ==
--- NOTE | 2018-08-01 15:46 | RAD ---
TIBIA FIBULA RIGHT History: Avi placed in Tib/Fib for FX 2012. Pain and numbness in mid lower leg. Comparison: Image from April 11, 2017 but no report. Intramedullary nail with proximal and distal cross locking screws is again identified in the tibia. No abnormal osteolysis or bone destruction. The hardware is intact. No periosteal reaction. There is a mild fracture deformity of the tibia, chronic. Old fracture deformity of the proximal fibula is again seen. No evidence of acute fracture. No significant soft tissue abnormality. IMPRESSION: Stable chronic findings, no acute abnormality. Electronically signed by: Vinh Bangura MD (08/01/2018 3:41 PM) [id number]
== END | disposition home or self-care (01) ==
LOC: LAB 14:57
PROVIDERS: ATTEND Family Medicine
DX: M21.861 Other specified acquired deformities of right lower leg (principal)
CPT/HCPCS: 73590

== ENCOUNTER → 2018-10-21 | Outpatient (CLI) | payer MEDICARE, OTHER ==
[~2018-10-21] MED LIST changes: +AMLO5TAB10 PO; -AMLO5TAB7 PO; -GABA600T2 PO; +GABA600T7 PO; +TRAZ-120 PO; -TRAZ-85 PO
[2018-10-21 13:07] LABS: ALBUMIN 3.7 g/dL (3.4-5.0); CALCIUM 9.3 mg/dL (8.5-10.1); CREATININE 0.8 mg/dL (0.6-1.0); GFR 71.8; POTASSIUM 4.1 mmol/L (3.5-5.1); TOTAL BILIRUBIN 0.4 mg/dL (0.2-1.0); TOTAL PROTEIN 7.4 g/dL (6.4-8.2)
== END | disposition home or self-care (01) ==
LOC: LAB 12:10
PROVIDERS: ATTEND Nurse Practitioner
DX: E78.5 Hyperlipidemia, unspecified (principal)
CPT/HCPCS: 36415; 80053; 80061

== ENCOUNTER → 2018-10-21 | Outpatient (CLI) | payer MEDICARE, OTHER ==
[2018-10-21 13:05] LABS: ALBUMIN 3.7 g/dL (3.4-5.0); CALCIUM 9.3 mg/dL (8.5-10.1); CREATININE 0.8 mg/dL (0.6-1.0); GFR 71.8; POTASSIUM 4.1 mmol/L (3.5-5.1); TOTAL BILIRUBIN 0.4 mg/dL (0.2-1.0); TOTAL PROTEIN 7.4 g/dL (6.4-8.2)
== END | disposition home or self-care (01) ==
LOC: LAB 12:20
PROVIDERS: ATTEND Family Medicine
DX: E78.5 Hyperlipidemia, unspecified (principal)
CPT/HCPCS: 36415; 80053; 80061

== ENCOUNTER → 2018-12-07 | Outpatient (CLI) | payer MEDICARE, OTHER ==
--- NOTE | 2018-12-09 09:00 | RAD ---
DATE: 12/07/2018 EXAM: DIGITAL SCREEN BILAT W/CAD HISTORY: Routine screening COMPARISON: 04/06/2011 This study was interpreted with the benefit of Computerized Aided Detection (CAD). Breast Density: SCATTERED The breast parenchyma shows scattered fibroglandular densities. Breast parenchyma level B. FINDINGS: The fibroglandular pattern is heterogeneous with multiple small smooth nodules noted bilaterally. Bilateral smooth nodule such as this are most commonly benign. No spiculated mass or architectural distortion is evident. Minimal benign type calcifications present. No suspicious microcalcifications are evident. IMPRESSION: Multiple bilateral breast nodules. Bilateral tomosynthesis imaging is suggested for characterization and to establish an optimal baseline for follow-up. BI-RADS CATEGORY: 0 INCOMPLETE: NEEDS ADDITIONAL IMAGING EVALUATION AND/OR PRIOR MAMMOGRAMS FOR COMPARISON. RECOMMENDED FOLLOW-UP: ADD ADDITIONAL IMAGING PQRS compliance statement: Patient information was entered into a reminder system with a target due date for the next mammogram. Mammography is a sensitive method for finding small breast cancers, but it does not detect them all and is not a substitute for careful clinical examination. A negative mammogram does not negate a clinically suspicious finding and should not result in delay in biopsying a clinically suspicious abnormality. "Our facility is accredited by the [employer] Mammography Program."
== END | disposition home or self-care (01) ==
LOC: MAMMO 09:26
PROVIDERS: ATTEND Family Medicine
DX: Z12.31 Encounter for screening mammogram for malignant neoplasm of breast (principal); N64.89 Other specified disorders of breast; N63.20 Unspecified lump in the left breast, unspecified quadrant; N63.10 Unspecified lump in the right breast, unspecified quadrant
CPT/HCPCS: 77067

== ENCOUNTER → 2018-12-14 | Outpatient (CLI) | payer MEDICARE, OTHER ==
--- NOTE | 2018-12-14 09:14 | RAD ---
DATE: 12/14/2018. EXAM: MAMMO ERNIE DIAGNOSTIC BILATERAL. HISTORY: Nodules on mammographic screening. Additional views are requested. COMPARISON: 12/07/2018. This study was interpreted with the benefit of Computerized Aided Detection (CAD). FINDINGS: Breast Density: SCATTERED The breast parenchyma shows scattered fibroglandular densities. Breast parenchyma level B.. Multiple small circumscribed nodules are seen bilaterally. None demonstrate clearly suspicious morphology on tomography. A few scattered calcifications are benign. BI-RADS CATEGORY: 3 PROBABLY BENIGN FINDING(S)-SHORT INTERVAL FOLLOW-UP SUGGESTED. RECOMMENDED FOLLOW-UP: 6M 6 MONTH FOLLOW-UP. 1. Recommended 6 month follow-up bilateral diagnostic mammography to confirm stability of multiple bilateral likely benign nodules at baseline. PQRS compliance statement: Patient information was entered into a reminder system with a target due date 06/15/2019 for the next mammogram. Mammography is a sensitive method for finding small breast cancers, but it does not detect them all and is not a substitute for careful clinical examination. A negative mammogram does not negate a clinically suspicious finding and should not result in delay in biopsying a clinically suspicious abnormality. "Our facility is accredited by the [employer] Mammography Program."
== END | disposition home or self-care (01) ==
LOC: MAMMO 08:11
PROVIDERS: ATTEND Family Medicine
DX: N63.20 Unspecified lump in the left breast, unspecified quadrant (principal); N63.10 Unspecified lump in the right breast, unspecified quadrant; N64.89 Other specified disorders of breast
CPT/HCPCS: 77066; G0279; 77062

== ENCOUNTER → 2018-12-19 | Outpatient (CLI) | payer MEDICARE, OTHER ==
[2018-12-19 09:20] LABS: BASO % 0 % (0-3); EOS # 0.1 x10^3/uL (0.0-0.7); EOS % 2 % (0-3); HEMATOCRIT 40.5 % (36.0-47.0); HEMOGLOBIN 13.8 g/dL (12.0-15.5); LYMPH # 1.6 x10^3/uL (1.0-4.8); LYMPH % 27 % (24-48); MEAN CORPUSCULAR HEMOGLOBIN 31 pg (25-35); MEAN CORPUSCULAR HGB CONC 34 g/dL (31-37); MEAN CORPUSCULAR VOLUME 92 fL (79-100); MONO # 0.4 x10^3/uL (0.0-1.1); MONO % 7 % (0-9); NEUT # 3.9 x10^3uL (1.8-7.7); NEUT % 64 % (31-73); PLATELET COUNT 225 x10^3/uL (140-400); RED BLOOD COUNT 4.42 x10^6/uL (3.50-5.40); RED CELL DISTRIBUTION WIDTH 13.7 % (11.5-14.5); WHITE BLOOD COUNT 6.1 x10^3/uL (4.0-11.0)
[2018-12-19 09:29] LABS: ALBUMIN 4.1 g/dL (3.4-5.0); ALBUMIN/GLOBULIN RATIO 1.2 (1.0-1.7); CALCIUM 9.8 mg/dL (8.5-10.1); GFR 55.5; POTASSIUM 4.2 mmol/L (3.5-5.1); TOTAL BILIRUBIN 0.4 mg/dL (0.2-1.0); TOTAL PROTEIN 7.5 g/dL (6.4-8.2)
== END | disposition home or self-care (01) ==
LOC: LAB 08:16
PROVIDERS: ATTEND Clinical Nurse Specialist Psychiatric/Mental Health, Adult
DX: Z79.899 Other long term (current) drug therapy (principal)
CPT/HCPCS: 36415; 80053; 80061; 84146; 85025

== ENCOUNTER → 2019-05-01 | Outpatient (CLI) | payer MEDICARE, OTHER ==
[~2019-05-01] MED LIST changes: -AMLO1CAP8 PO; +AMLO1CAP9 PO; +CYAN-25 PO; -CYAN10005 PO; -DILT120C85 PO; +DILT120C99 PO; +LISI1TAB19 PO; +LISI1TAB20 PO; -LISI1TAB5 PO; -LISI1TAB7 PO; -MAGN400T3 PO; +MAGN400T5 PO; -MONT10TA6 PO; +MONT10TA80 PO; +OXYB5TAB10 PO; -OXYB5TAB7 PO; -TIZA4TAB PO; +TIZA4TAB2 PO
[2019-05-01 10:02] LABS: ALBUMIN 3.9 g/dL (3.4-5.0); ALBUMIN/GLOBULIN RATIO 1.1 (1.0-1.7); CALCIUM 9.5 mg/dL (8.5-10.1); GFR 55.3; POTASSIUM 4.5 mmol/L (3.5-5.1); TOTAL BILIRUBIN 0.4 mg/dL (0.2-1.0); TOTAL PROTEIN 7.3 g/dL (6.4-8.2)
== END | disposition home or self-care (01) ==
LOC: LAB 08:58
PROVIDERS: ATTEND Family Medicine
DX: E78.5 Hyperlipidemia, unspecified (principal)
CPT/HCPCS: 36415; 80053; 80061

== ENCOUNTER 2019-07-23 12:34 | Emergency (ER) | payer MEDICARE, OTHER ==
[~2019-07-23] VITALS: Ht 160 cm; Wt 74.6 kg
[2019-07-23 12:34] VITALS: BP 155/89
[~2019-07-23 12:34] MED LIST changes: -CLON0.5T11 PO; +CLON0.5T4 PO; -LAMO100T PO; +LAMO100T8 PO; -LAMO200T2 PO; +LAMO200T6 PO; +ONDA-84 PO; -ONDA4TAB11 PO; -POTA20TA82 PO; +TRAZ-125 PO; -TRAZ-86 PO
--- NOTE | 2019-07-23 12:58 | PHYS DOC ---
Past History Past Medical History: Anxiety, Bipolar, Constipation, Dementia, Depression, Diverticulitis, High Cholesterol, Hypertension, Hypothyroid, Migraines, Renal Disease, Schizophrenia, UTI, Other Past Surgical History: Appendectomy, Cholecystectomy, Colectomy, Hysterectomy, Other Alcohol Use: Occasionally Drug Use: None Adult General Chief Complaint Chief Complaint: ANKLE PROBLEM [facility] HPI Patient is a 69-year-old female who walked in here for evaluation of right leg injury after she fell today. She says she has history of right right leg fracture with screw in it. today, she was walking to the store to buy something and she slipped on ice, twisted her right ankle, fell down her right side, denies hitting her head or her hip. Patient denies any headache, no neck pain, no pelvic pain. Patient denies any knee pain. Patient complaints of pain at the distal part of right leg, she was able to walk however. All other ROS is negative unless otherwise noted in HPI Review of Systems Review of Systems See above Allergies Allergies Allergies Coded Allergies Type Severity Reaction Last Updated Verified codeine Allergy Intermediate 01/11/16 Yes metoclopramide Allergy Intermediate 08/31/16 Yes morphine Allergy Intermediate Palpitations 08/31/16 Yes losartan Adverse Reaction Intermediate mild pancreatitis 01/07/17 Yes Physical Exam Physical Exam See above Constitutional: Well developed, well nourished, no acute distress, non-toxic appearance. [] HENT: Normocephalic, atraumatic, bilateral external ears normal, oropharynx moist, no oral exudates, nose normal. [] Eyes: PERRLA, EOMI, conjunctiva normal, no discharge. [] Neck: Normal range of motion, no tenderness, supple, no stridor. [] Cardiovascular:Heart rate regular rhythm, no murmur [] Lungs & Thorax: Bilateral breath sounds clear to auscultation [] Abdomen: Bowel sounds normal, soft, no tenderness, no masses, no pulsatile masses. [] Skin: Warm, dry, no erythema, no rash. [] Back: No tenderness, no CVA tenderness. [] Extremities: there is tenderness to palpation on right distal 1/3 of right leg, no open wound, right ankle is tender at the lateral malleous area, no swelling, no deformity. There is no tenderness to palpation on on right hip or right knee, no pain in right shoulder. Neurologic: Alert and oriented X 3, normal motor function, normal sensory function, no focal deficits noted. [] Psychologic: Affect normal, judgement normal, mood normal. [] EKG EKG [] Radiology/Procedures Radiology/Procedures [][address] [id number] IMAGING REPORT Signed PATIENT: PORTIA MERINO ACCOUNT: [id number] : 1950 LOCATION: ER AGE: 69 SEX: F EXAM STATUS: REG ER ORD. PHYSICIAN: DREA SALTER DO REASON: fell, right leg and ankle pain PROCEDURE: ANKLE RIGHT 3V ANKLE RIGHT 3V, TIBIA FIBULA RIGHT 07/23/2019 12:49 PM INDICATION: Fall with right leg and ankle pain COMPARISON: None available. TECHNIQUE: 3 views the right ankle and 2 views the right tibia and tibial are provided. FINDINGS/ IMPRESSION: 1. An intramedullary david is identified involving the tibia with 2 proximal and 2 distal screws identified. Remodeling of the distal tibial diaphysis is noted from remote healed fracture. 2. There is an obliquely oriented fracture involving the distal fibular metadiaphysis extending to the lateral malleolus. Fracture begins approximately 5.3 cm from the distal tip of the lateral malleolus. There is minimal displacement and extension to the ankle mortise. Ankle mortise appears congruent. 3. Proximal tibia and fibula appear intact. Electronically signed by: David Gates MD (07/23/2019 1:16 PM) [id number] DICTATED AND SIGNED BY: DAVID GTAES MD DATE: 07/23/19 1316 CC: DREA SALTER DO; EDMUND RUBIO MD ~ Course & Med Decision Making Course & Med Decision Making Pertinent Labs and Imaging studies reviewed. (See chart for details) Patient refused a splint to be applied on her right leg. She wanted a walking boot but there was no walking boot available in the hospital today. Patient was given a prescription for walking boot that she can buy at the local pharmacy area [place] Disclaimer Dragon Disclaimer This electronic medical record was generated, in whole or in part, using a voice recognition dictation system. Departure Departure: Impression: Primary Impression: Closed fracture of right distal fibula Disposition: HOME, SELF-CARE Condition: STABLE Referrals: JUAN SUAZO II, MD PLEASE CALL THIS ORTHOPEDIC SURGEON ON WEDNESDAY FOR FOLLOW UP Patient Instructions: Fibular Fracture, Ankle, Adult, Treated with or without Immobilization Additional Instructions: Thank you for visiting our Emergency Department. We appreciate you trusting us with your care. If any additional problems come up don't hesitate to return to visit us. Please follow up with your primary care provider so they can plan additional care if needed and know about the problem that you had. If symptoms worsen come back to the Emergency Department. Any concerning symptoms that start such as chest pain, shortness of air, weakness or numbness on one side of the body, running high fevers or any other concerning symptoms return to the ER. PLEASE GO BUY THE WALKING BOOT SO YOU CAN USE TO WALK. PLEASE CALL ORTHOPEDIC DOCTOR ON WEDNESDAY FOR FOLLOW UP. Scripts Omeprazole Magnesium (PRILOSEC OTC) 20 Mg Tablet.dr 20 MG PO DAILY for GERD for 30 Days, #30 TAB Prov: DREA SALTER DO 07/23/19 Hydrocodone Bit/Acetaminophen (NORCO 5-325 TABLET) 1 Each Tablet 1 TAB PO PRN Q6HRS PRN for PAIN, #12 TAB 0 Refills Prov: DREA SALTER DO 07/23/19 DREA SALTER DO Jul 23, 2019 12:58
--- NOTE | 2019-07-23 13:19 | RAD ---
ANKLE RIGHT 3V, TIBIA FIBULA RIGHT 07/23/2019 12:49 PM INDICATION: Fall with right leg and ankle pain COMPARISON: None available. TECHNIQUE: 3 views the right ankle and 2 views the right tibia and tibial are provided. FINDINGS/ IMPRESSION: 1. An intramedullary david is identified involving the tibia with 2 proximal and 2 distal screws identified. Remodeling of the distal tibial diaphysis is noted from remote healed fracture. 2. There is an obliquely oriented fracture involving the distal fibular metadiaphysis extending to the lateral malleolus. Fracture begins approximately 5.3 cm from the distal tip of the lateral malleolus. There is minimal displacement and extension to the ankle mortise. Ankle mortise appears congruent. 3. Proximal tibia and fibula appear intact. Electronically signed by: Missy King MD (07/23/2019 1:16 PM) [id number]
[2019-07-23] MEDS: LIDO:MAALOX 1:1 20 ML SINGLE DOSE. PO ONE (14:15)
[2019-07-23] MEDS ORDERED: HYDR-3165 PO (15:15)
[2019-07-23] MEDS ORDERED: OMEP20TA63 PO (15:18)
[2019-07-23] MEDS: HYDROcodone/APAP 5/325MG 1 TAB TABLET PO ONE (15:24)
== END 2019-07-23 15:30 | disposition home or self-care (01) ==
LOC: ER 12:34
DX: S82.831A Other fracture of upper and lower end of right fibula, initial encounter for closed fracture (principal); F41.9 Anxiety disorder, unspecified; F31.9 Bipolar disorder, unspecified; F03.90 Unspecified dementia, unspecified severity, without behavioral disturbance, psychotic disturbance, mood disturbance, and anxiety; E78.00 Pure hypercholesterolemia, unspecified; I10 Essential (primary) hypertension; E03.9 Hypothyroidism, unspecified; G43.909 Migraine, unspecified, not intractable, without status migrainosus; F20.9 Schizophrenia, unspecified; Z87.440 Personal history of urinary (tract) infections; Z88.5 Allergy status to narcotic agent; Z88.8 Allergy status to other drugs, medicaments and biological substances; W00.0XXA Fall on same level due to ice and snow, initial encounter; Y93.01 Activity, walking, marching and hiking; Y92.89 Other specified places as the place of occurrence of the external cause; Y99.8 Other external cause status
CPT/HCPCS: 73590; 73610; 99284

== ENCOUNTER → 2019-09-12 | Outpatient (CLI) | payer MEDICARE, OTHER ==
[~2019-09-12] MED LIST changes: -MAGN2400 PO; +MAGN24003 PO; +OMEP20TA63 PO; -ROPI1TAB2 PO; +ROPI1TAB4 PO
--- NOTE | 2019-09-12 15:46 | RAD ---
Examination: Bilateral digital diagnostic mammogram. INDICATION: Short-term follow-up probably benign bilateral breast nodules. COMPARISON: 12/07/2018, 12/14/2018 bilateral mammograms. TECHNIQUE: CC and MLO views as well as left X CCL views were obtained with 2-D technique and reviewed with computer-aided detection. Finding: Scattered fibroglandular densities. Nodular parenchymal pattern compatible with benign fibrocystic change. No dominant mass, suspicious calcification or architectural distortion. IMPRESSION: Benign findings on bilateral diagnostic mammogram. No evidence of malignancy. Recommend return to routine screening next due in one year. BI-RADS Category 2 Benign Patient entered into a reminder system with target due date for next mammogram.
--- NOTE | 2019-09-12 17:15 | RAD ---
Bone densitometry study: Date: 09/12/2019. Indication: Osteoporosis, on therapy. History of smoking, arthritis and thyroid disease. Previous history of compression fracture.. Procedure: DEXA study. Findings: The bone mineral density from L1 through L4 is 1.050 grams/cm squared with T-score -1.1. The bone mineral density in the left hip involving the neck of the left femur is 0.794 grams per cm squared with a T-score of -1.3. Impression: Low-normal bone mineral density in the spine and osteopenia in the left hip. Electronically signed by: Maryam Gonzalez MD (09/12/2019 5:11 PM) [id number]
== END | disposition home or self-care (01) ==
LOC: MAMMO 10:34
PROVIDERS: ATTEND Family Medicine
DX: S82.874D Nondisplaced pilon fracture of right tibia, subsequent encounter for closed fracture with routine healing (principal); M85.88 Other specified disorders of bone density and structure, other site; N64.89 Other specified disorders of breast; X58.XXXD Exposure to other specified factors, subsequent encounter
CPT/HCPCS: 77066; 77080

== ENCOUNTER → 2019-12-05 | Outpatient (CLI) | payer MEDICARE, OTHER ==
[2019-12-05 09:53] LABS: ALBUMIN 3.7 g/dL (3.4-5.0); ALBUMIN/GLOBULIN RATIO 1.1 (1.0-1.7); CALCIUM 9.2 mg/dL (8.5-10.1); GFR 55.3; POTASSIUM 4.2 mmol/L (3.5-5.1); TOTAL BILIRUBIN 0.3 mg/dL (0.2-1.0)
== END ==
LOC: LAB 08:02
PROVIDERS: ATTEND Nurse Practitioner
DX: E78.5 Hyperlipidemia, unspecified (principal)
CPT/HCPCS: 36415; 80053

== ENCOUNTER → 2019-12-05 | Outpatient (CLI) | payer MEDICARE, OTHER ==
[2019-12-05 09:38] LABS: BASO % 1 % (0-3); EOS # 0.1 x10^3/uL (0.0-0.7); EOS % 2 % (0-3); HEMATOCRIT 42.2 % (36.0-47.0); HEMOGLOBIN 13.7 g/dL (12.0-15.5); LYMPH # 1.8 x10^3/uL (1.0-4.8); LYMPH % 30 % (24-48); MEAN CORPUSCULAR HEMOGLOBIN 30 pg (25-35); MEAN CORPUSCULAR HGB CONC 32 g/dL (31-37); MEAN CORPUSCULAR VOLUME 93 fL (79-100); MONO # 0.4 x10^3/uL (0.0-1.1); MONO % 7 % (0-9); NEUT # 3.6 x10^3uL (1.8-7.7); NEUT % 61 % (31-73); PLATELET COUNT 205 x10^3/uL (140-400); RED BLOOD COUNT 4.54 x10^6/uL (3.50-5.40); RED CELL DISTRIBUTION WIDTH 13.8 % (11.5-14.5); WHITE BLOOD COUNT 5.9 x10^3/uL (4.0-11.0)
[2019-12-05 09:55] LABS: ALBUMIN 3.7 g/dL (3.4-5.0); ALBUMIN/GLOBULIN RATIO 1.1 (1.0-1.7); CALCIUM 9.4 mg/dL (8.5-10.1); GFR 55.3; POTASSIUM 4.1 mmol/L (3.5-5.1); TOTAL BILIRUBIN 0.3 mg/dL (0.2-1.0)
== END ==
LOC: LAB 07:56
PROVIDERS: ATTEND Clinical Nurse Specialist Psychiatric/Mental Health, Adult
DX: Z79.899 Other long term (current) drug therapy (principal)
CPT/HCPCS: 36415; 80053; 80061; 84146; 85025

== ENCOUNTER 2020-12-08 01:34 | Emergency (ER) | payer MEDICARE, OTHER ==
[~2020-12-08 01:34] MED LIST changes: +AMLO-186 PO; -AMLO5TAB10 PO; -LISI1TAB19 PO; +LISI1TAB37 PO; +MULT-445 PO; -MULT1TAB52 PO; -OLAN5TAB5 PO; +OLAN5TAB99 PO; -PANT40TA5 PO; +PANT40TA6 PO; -RISP0.5T3 PO; +RISP0.5T62 PO; -RISP1TAB3 PO; +RISP1TAB88 PO; +SERT-269 PO; -SERT100T8 PO
--- NOTE | 2020-12-08 02:58 | PHYS DOC ---
Past History Past Medical History: Anxiety, Bipolar, Constipation, Dementia, Depression, Diverticulitis, High Cholesterol, Hypertension, Hypothyroid, Migraines, Renal Disease, Schizophrenia, UTI, Other Past Surgical History: Appendectomy, Cholecystectomy, Colectomy, Hysterectomy, Other Alcohol Use: Occasionally Drug Use: None General Adult EDM: Chief Complaint: ABDOMINAL PAIN HPI: HPI: ".. I am having some pain down here on the right...".." It been going on for a while .. but much worse tonight.. I have a lot of bowel problems.. resection of my colon... and some adhesions.. ".." Sometimes in same the pain is so bad it makes my heart race" Patient is a 70 year old female who presents with above hx and complaints of abdomen pain. Patient denies any intake of bad food. Patient denies any trauma. Patient denies any recent travel outside the [facility]. Patient denies any significant ill contacts. Patient has somewhat extensive GI history with adhesions, partial colectomy, cholecystectomy, hysterectomy, constipation, IBS, GERD and periodic abdomen pain. Patient states that she reportedly had a normal bowel movement today. Did not notice any rectal bleeding. Has been compliant with her meds. Patient has significant medical history also for paroxysmal atrial fibrillation, tachybradycardia syndrome, anxiety, depression, fibromyalgia, lacunar infarcts, hypothyroidism, chronic pain, left leg fracture, overuse of pain meds and oversedation requiring medical evaluation, and polysubstance abuse. Patient also has significant mental health issues bipolar disorder and anxiety disorder. Patient normally follows with Dr. Rodriguez. Review of Systems: Review of Systems: Constitutional: Denies fever or chills Eyes: Denies change in visual acuity HENT: Denies nasal congestion or sore throat Respiratory: Denies cough or shortness of breath Cardiovascular: Denies chest pain or edema GI: Complains of generalized abdominal pain, nausea, with some localization of pain in right lower quadrant. Denies vomiting, bloody stools or diarrhea : Denies dysuria Musculoskeletal: Chronic back pain or joint pain Integument: Denies rash Neurologic: Denies headache, focal weakness or sensory changes Endocrine: Denies polyuria or polydipsia Lymphatic: Denies swollen glands Psychiatric: Complains of depression or anxiety which is currently well controlled on her current meds. Family History: Family History: Noncontributory to presentation Current Medications: Current Meds: See nursing for home meds Allergies: Allergies: Allergies Coded Allergies Type Severity Reaction Last Updated Verified codeine Allergy Intermediate 01/11/16 Yes metoclopramide Allergy Intermediate 08/31/16 Yes morphine Allergy Intermediate Palpitations 08/31/16 Yes losartan Adverse Reaction Intermediate mild pancreatitis 01/07/17 Yes Physical Exam: PE: Constitutional: Moderate acute distress, non-toxic appearance. [] HENT: Normocephalic, atraumatic, bilateral external ears normal, oropharynx moist, no oral exudates, nose normal. [] Eyes: PERRLA, EOMI, conjunctiva normal, no discharge. [] Neck: Normal range of motion, no tenderness, supple, no stridor. [] Cardiovascular:Heart rate regular rhythm, no murmur, PMI slightly to the left Lungs & Thorax: Bilateral breath sounds at apex with scattered wheezes auscultation [] some basilar crackles that clear with deep breaths and cough Abdomen: Bowel sounds decreased, soft, generalized tenderness, some rebound right lower quadrant, very distended no masses, no pulsatile masses. Multiple surgical scars. Obese. Skin: Warm, dry, no erythema, no rash. [] Back: No tenderness, no CVA tenderness. [] Extremities: No tenderness, no cyanosis, no clubbing, ROM intact, no edema. No Trousseau sign. Old surgery scar left leg Neurologic: Alert and oriented X 3, moves all extremities on request, does have distal sensory, no focal deficits noted. [] Psychologic: Affect anxious, judgement normal, mood normal. [] EKG: EKG: My interpretation EKG shows a sinus rhythm at 75 bpm. No acute morphology [] Radiology/Procedures: Radiology/Procedures: [[address] [address] IMAGING REPORT Signed PATIENT: PORTIA MERINO ACCOUNT: [id number] : 1950 LOCATION: ER AGE: 70 SEX: F EXAM STATUS: REG ER ORD. 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 Axial, coronal and sagittal reformatted images were generated. PQRS compliance statement - One or more of the following individualized dose reduction techniques were utilized for this study: 1. Automated exposure control 2. Adjustment of the mA and/or kV according to patient size 3. Use of iterative reconstruction technique FINDINGS: Lower Chest: Linear opacities lower lobes likely scarring/atelectasis. Abdomen and Pelvis: Hepatic hypoattenuation likely fatty liver. Cholecystectomy clips. No biliary ductal dilatation. Pancreas is unremarkable. Spleen is normal in appearance. Adrenal glands are unremarkable. Symmetric nephrograms. Intermittent cortical scarring lower pole left kidney. Subcentimeter hypodense left upper pole renal lesion likely cystic. Bladder is unremarkable. Changes of partial colectomy are seen. No small or large bowel dilatation. Moderate to large volume colonic stool content is seen. Decreased bone mineral density. Degenerative changes of the spine are seen. IMPRESSION: Moderate to large volume colonic stool content is seen. Changes of partial colectomy are seen. No bowel obstruction. Hepatic hypoattenuation likely fatty liver. Electronically signed by: Pernell Peraza MD (12/08/2020 6:26 AM) [facility] DICTATED AND SIGNED BY: PERNELL PERAZA MD DATE: 12/08/20 0618 CC: HELLEN EVANS MD; EDMUND RODRIGUEZ MD ~[facility]0 0 ][place] [id number] IMAGING REPORT Signed PATIENT: PORTIA MERINO ACCOUNT: [id number] : 1950 LOCATION: ER AGE: 70 SEX: F EXAM STATUS: REG ER ORD. PHYSICIAN: HELLEN EVANS MD REASON: pain PROCEDURE: ACUTE ABDOMEN SERIES EXAM: Frontal view of the chest, AP views of the abdomen in upright and supine positions. CLINICAL INDICATION: Reason: pain / Spl. Instructions: / History: COMPARISON: None. FINDINGS and IMPRESSION: The heart is not enlarged. Mediastinal and hilar contours are normal. Patchy opacities left lung base atelectasis or consolidation. No pleural effusion or pneumothorax. No abnormal small or large bowel dilatation. Moderate to large volume colonic stool content. No abnormal soft tissue mass effect. No suspicious calcifications are seen. No free intraperitoneal gas. Cholecystectomy clips. Electronically signed by: Pernell Peraza MD (12/08/2020 4:37 AM) [facility] DICTATED AND SIGNED BY: PERNELL PERAZA MD DATE: 12/08/20436 CC: HELLEN EVANS MD; EDMUND RODRIGUEZ MD ~[facility] 0 Heart Score: C/O Chest Pain: Yes HEART Score for Chest Pain: HEART Score for Chest Pain Response (Comments) Value History Slighlty/Non-Suspicious 0 ECG Normal 0 Age > 65 2 Risk Factors 1 or 2 Risk Factors 1 Troponin < Normal Limit 0 Total 3 Risk Factors: Risk Factors: DM, Current or recent (<one month) smoker, HTN, HLP, family history of CAD, obesity. Risk Scores: Score 0 - 3: 2.5% MACE over next 6 weeks - Discharge Home Score 4 - 6: 20.3% MACE over next 6 weeks - Admit for Clinical Observation Score 7 - 10: 72.7% MACE over next 6 weeks - Early Invasive Strategies Course & Med Decision Making: Course & Med Decision Making Pertinent Labs and Imaging studies reviewed. (See chart for details) Patient's overall symptoms gradually improved during ED stay. Did receive IV fluids. Advised patient to remain on a clear fluid diet for the next 48 hours. No solids or milk products. Two MiraLAX mixed with juice of choice until stooling clearly. If no clearing of pain or increased pain will need reexam. Follow-up primary care. Return if any concerns. Can consider scheduling outpatient colonoscopy and EGD. Review this with primary care. Return if any concerns. But must keep follow-up with primary care, and encourage patient follow-up with her psychiatrist. Impression; 1. Abdomen pain 2. Constipation 3. History of adhesions 4. History of bipolar disorder 5. History of anxiety disorder 6. Hx GERD 7. Elevated alk phos 170, elevated AST 53, elevated ALT 68 [] Dragon Disclaimer: Dragon Disclaimer: This electronic medical record was generated, in whole or in part, using a voice recognition dictation system. Departure Departure: Referrals: EDMUND RODRIGUEZ MD (PCP) Scripts Polyethylene Glycol 3350 (MIRALAX) 17 Gm Powd.pack 17 GM PO BID for constipation, #1 PKT Prov: HELLEN EVANS MD 12/08/20 Yuan Disclaimer This chart was dictated in whole or in part using Voice Recognition software in a busy, high-work load, and often noisy Emergency Department environment. It may contain unintended and wholly unrecognized errors or omissions. Dragon Disclaimer This chart was dictated in whole or in part using Voice Recognition software in a busy, high-work load, and often noisy Emergency Department environment. It may contain unintended and wholly unrecognized errors or omissions. HELLEN EVANS MD December 08, 2020 02:58
[2020-12-08 03:06] LABS: BILIRUBIN,URINE NEG (NEG); CLARITY,URINE HAZY; COLOR,URINE YELLOW; GLUCOSE,URINE NEG (NEG)
[2020-12-08 03:07] LABS: BACTERIA,URINE FEW /HPF (0-FEW); NITRITE,URINE NEG (NEG); RBC,URINE OCC /HPF (0-2); SQUAMOUS EPITHELIAL CELL,UR FEW /LPF; UROBILINOGEN,URINE 0.2 mg/dL (0.2 mg/dL); WBC,URINE 0 /HPF (0-4)
[2020-12-08] MEDS ORDERED: IOHEXOL 240 MG/ML 50ML VIAL. PO ONE (03:30)
[2020-12-08] MEDS ORDERED: IOHEXOL 300 MG/ML 75 ML VIAL. IV ONE (03:30)
[2020-12-08] MEDS ORDERED: KETOROLAC 30 MG/ML VIAL. IVP ONE (03:30)
[2020-12-08] MEDS ORDERED: ONDANSETRON PF 4 MG/2 ML VIAL. IVP ONE (03:30)
[2020-12-08] MEDS ORDERED: MAGNESIUM HYDROXIDE 2,400 MG/30 ML ORAL.SUSP. PO ONE (03:30)
[2020-12-08] MEDS ORDERED: FAMOTIDINE 20 MG/2 ML VIAL IVP ONE (03:30)
[2020-12-08] MEDS ORDERED: IV RINGERS SOLUTION,LACTATED 1,000 ML IV SCH (03:30)
--- NOTE | 2020-12-08 03:39 | EKG ---
[address] [address] Test Date: 2020-12-08 Test Time: 03:30:18 Pat Name: PORTIA MERINO Department: Room: Gender: F [employer] Dipper: : 1950 Requested By: HELLEN EVANS Order Number: [id number] Reading MD: Matty Callaway Measurements Intervals [place] Rate: 75 P: 31 FL: 194 QRS: 25 QRSD: 78 T: 52 QT: 390 QTc: 438 Interpretive Statements SINUS RHYTHM NORMAL ECG RI6.02 Compared to ECG 03/19/2018 00:06:05 No significant changes Electronically Signed On 12-10-2020 15:27:26 CDT by Matty Callaway
[2020-12-08 03:45] LABS: AMPHETAMINE/METHAMPHETAMINE NEG (NEG); BARBITURATES POS (NEG); BENZODIAZEPINES NEG (NEG); CANNABINOIDS NEG (NEG); COCAINE NEG (NEG); METHADONE NEG (NEG); OPIATES NEG (NEG); PHENCYCLIDINE NEG (NEG)
[2020-12-08] MEDS ORDERED: CONTRAST GIVEN. MC PRN (03:45)
--- NOTE | 2020-12-08 04:40 | RAD ---
EXAM: Frontal view of the chest, AP views of the abdomen in upright and supine positions. CLINICAL INDICATION: Reason: pain / Spl. Instructions: / History: COMPARISON: None. FINDINGS and IMPRESSION: The heart is not enlarged. Mediastinal and hilar contours are normal. Patchy opacities left lung base atelectasis or consolidation. No pleural effusion or pneumothorax. No abnormal small or large bowel dilatation. Moderate to large volume colonic stool content. No abn ormal soft tissue mass effect. No suspicious calcifications are seen. No free intraperitoneal gas. Cholecystectomy clips. Electronically signed by: Pernell Hamilton MD (12/08/2020 4:37 AM) THOM
[2020-12-08 04:56] LABS: CALCIUM 9.1 mg/dL (8.5-10.1); CREATININE 0.8 mg/dL (0.6-1.0); GFR 71.3
[2020-12-08 04:57] LABS: BASO % 1 % (0-3); EOS # 0.1 x10^3/uL (0.0-0.7); EOS % 2 % (0-3); HEMATOCRIT 41.5 % (36.0-47.0); HEMOGLOBIN 13.8 g/dL (12.0-15.5); LYMPH # 2.2 x10^3/uL (1.0-4.8); LYMPH % 32 % (24-48); MEAN CORPUSCULAR HEMOGLOBIN 31 pg (25-35); MEAN CORPUSCULAR HGB CONC 33 g/dL (31-37); MEAN CORPUSCULAR VOLUME 93 fL (79-100); MONO # 0.6 x10^3/uL (0.0-1.1); MONO % 8 % (0-9); NEUT % 58 % (31-73); PLATELET COUNT 189 x10^3/uL (140-400); RED BLOOD COUNT 4.48 x10^6/uL (3.50-5.40); RED CELL DISTRIBUTION WIDTH 13.8 % (11.5-14.5); WHITE BLOOD COUNT 6.9 x10^3/uL (4.0-11.0)
[2020-12-08 05:03] LABS: ALBUMIN 3.5 g/dL (3.4-5.0); DIRECT BILIRUBIN 0.1 mg/dL (0.0-0.2); TOTAL BILIRUBIN 0.3 mg/dL (0.2-1.0); TOTAL PROTEIN 6.5 g/dL (6.4-8.2)
--- NOTE | 2020-12-08 06:28 | RAD ---
EXAM: CT Abdomen and Pelvis with IV contrast CLINICAL HISTORY: Severe right lower quadrant pain COMPARISON: 07/04/2017 TECHNIQUE: Helical CT of the abdomen and pelvis was performed following the administration of intrave nous contrast. Axial, coronal and sagittal reformatted images were generated. PQRS compliance statement - One or more of the following individualized dose reduction techniques wer e utilized for this study: 1. Automated exposure control 2. Adjustment of the mA and/or kV according to patient size 3. Use of iterative reconstruction technique FINDINGS: Lower Chest: Linear opacities lower lobes likely scarring/atelectasis. Abdomen and Pelvis: Hepatic hypoattenuation likely fatty liver. Cholecystectomy clips. No biliary ductal dilatation. Panc reas is unremarkable. Spleen is normal in appearance. Adrenal glands are unremarkable. Symmetric neph rograms. Intermittent cortical scarring lower pole left kidney. Subcentimeter hypodense left upper po le renal lesion likely cystic. Bladder is unremarkable. Changes of partial colectomy are seen. No small or large bowel dilatation. Moderate to large volume c olonic stool content is seen. Decreased bone mineral density. Degenerative changes of the spine are seen. IMPRESSION: Moderate to large volume colonic stool content is seen. Changes of partial colectomy are seen. No bowel obstruction. Hepatic hypoattenuation likely fatty liver. Electronically signed by: Pernell Hamilton MD (12/08/2020 6:26 AM) THOM
[2020-12-08] MEDS ORDERED: POLY17PO5 PO (06:40)
== END 2020-12-08 07:10 | disposition home health service (06) ==
LOC: ER 01:34
DX: K59.00 Constipation, unspecified (principal); R79.89 Other specified abnormal findings of blood chemistry; R10.84 Generalized abdominal pain; R10.31 Right lower quadrant pain; F31.9 Bipolar disorder, unspecified; F41.9 Anxiety disorder, unspecified; K21.9 Gastro-esophageal reflux disease without esophagitis; F03.90 Unspecified dementia, unspecified severity, without behavioral disturbance, psychotic disturbance, mood disturbance, and anxiety; E78.00 Pure hypercholesterolemia, unspecified; I10 Essential (primary) hypertension; E03.9 Hypothyroidism, unspecified; G43.909 Migraine, unspecified, not intractable, without status migrainosus; F20.9 Schizophrenia, unspecified; Z87.440 Personal history of urinary (tract) infections; Z90.49 Acquired absence of other specified parts of digestive tract; Z90.710 Acquired absence of both cervix and uterus; Z90.89 Acquired absence of other organs; Z88.5 Allergy status to narcotic agent; Z88.8 Allergy status to other drugs, medicaments and biological substances
CPT/HCPCS: 36415; 74022; 74177; 80048; 80076; 80307; 81001; 82150; 82550; 83690; 84484; 85025; 93005; 96374; 96375; 99285; J1885; J2405; J3490; J7120; Q9966; Q9967

== ENCOUNTER → 2020-12-17 | Outpatient (CLI) | payer MEDICARE, OTHER ==
[2020-12-08 07:00] VITALS: BP 118/60
[~2020-12-17] MED LIST changes: +MIRT-7 PO; -MIRT15TA3 PO; +POLY17PO5 PO
[2020-12-17 10:28] LABS: ALBUMIN 4.1 g/dL (3.4-5.0); ALBUMIN/GLOBULIN RATIO 1.2 (1.0-1.7); CALCIUM 9.4 mg/dL (8.5-10.1); GFR 55.1; TOTAL BILIRUBIN 0.4 mg/dL (0.2-1.0); TOTAL PROTEIN 7.5 g/dL (6.4-8.2)
[2020-12-18 18:34] LABS: THYROID STIM HORMONE (TSH) 1.117 uIU/mL (0.358-3.740)
== END ==
LOC: LAB 08:33
PROVIDERS: ATTEND Nurse Practitioner
DX: E78.5 Hyperlipidemia, unspecified (principal); E03.9 Hypothyroidism, unspecified
CPT/HCPCS: 36415; 80053; 80061; 84443

== ENCOUNTER → 2021-03-28 | Outpatient (CLI) | payer MEDICARE, OTHER ==
[2020-12-08 07:00] VITALS: BP 118/60
[~2021-03-28] MED LIST changes: +OLAN5TAB67 PO; -OLAN5TAB9 PO; +POTA-121 PO
--- NOTE | 2021-03-28 08:10 | RAD ---
INDICATION: Reason: LT POPLITEAL PAIN / Spl. Instructions: / History: COMPARISON: None. TECHNIQUE: Grayscale, color and doppler ultrasound images were obtained of the left lower extremity v enous vasculature. LEFT: No thrombus identified in the common femoral vein, femoral vein, popliteal vein or visualized calf ve ins. IMPRESSION: * No thrombus identified in deep venous system of the left lower extremity. Electronically signed by: Abdirashid Murguia MD (03/28/2021 8:07 AM) [id number]
== END ==
LOC: US 07:08
PROVIDERS: ATTEND Family Medicine
DX: M79.605 Pain in left leg (principal)
CPT/HCPCS: 93971

== ENCOUNTER 2021-09-02 19:21 | Emergency (ER) | payer MEDICARE, OTHER ==
[~2021-09-02] VITALS: Ht 160 cm; Wt 86.8 kg
[~2021-09-02 19:21] MED LIST changes: -FLUV50TA2 PO; +FLUV50TA21 PO; -LISI1TAB20 PO; +LISI1TAB39 PO; +MAGN400T48 PO; -MAGN400T5 PO; -PHEN16.277 PO; +RISP3TAB PO; -RISP3TAB8 PO; +TIZA-75 PO; -TIZA4TAB2 PO; +[UNRECOGNIZED DRUG - CODE] PO
--- NOTE | 2021-09-02 19:25 | PHYS DOC ---
Past History Past Medical History: Anxiety, Bipolar, Constipation, COPD, CVA, Dementia, Depression, Diverticulitis, Gallstones, GERD, High Cholesterol, Hypertension, Hypothyroid, Migraines, Renal Disease, Schizophrenia, UTI, Other Additional Past Medical Histor: overactive bladder Past Surgical History: Appendectomy, Cholecystectomy, Colectomy, Hysterectomy, Tonsillectomy, Other Additional Past Surgical Histo: lysis of adhesions; dental surgery--all of teeth removed Alcohol Use: None Drug Use: None Adult General HPI HPI Patient is a 71-year-old female with multiple comorbidities including CAD and COPD who presents with a chief complaint of sharp chest pain, 7 out of 10, centralized around lower sternum, epigastrium with some radiation to her back that started about 1 to 2 hours ago while she was watching TV. States she had not had this before. Did not take any medications. Denies any recent travels, traumas, illnesses, fevers, dyspnea on exertion, orthopnea, PND or edema. Denies any known ill contacts. States she is eating and drinking normally. States he is making urine and stool normally for her with no blood in either. States that shortly after arrival in the emergency department her symptoms resolved. Review of Systems Review of Systems Review of systems otherwise unremarkable except noted in HPI Allergies Allergies Allergies Coded Allergies Type Severity Reaction Last Updated Verified codeine Allergy Intermediate 01/11/16 Yes metoclopramide Allergy Intermediate 08/31/16 Yes losartan Adverse Reaction Intermediate mild pancreatitis 01/07/17 Yes morphine Adverse Reaction Intermediate Palpitations 12/08/20 Yes Physical Exam Physical Exam Constitutional: Well developed, well nourished, no acute distress, non-toxic appearance. [] HENT: Normocephalic, atraumatic, bilateral external ears normal, oropharynx moist, no oral exudates, nose normal. [] Eyes: PERRLA, EOMI, conjunctiva normal, no discharge. [] Neck: Normal range of motion, no tenderness, supple, no stridor. [] Cardiovascular:Heart rate regular rhythm, no murmur [] Lungs & Thorax: Bilateral breath sounds clear to auscultation [] Abdomen: Bowel sounds normal, soft, no tenderness, no masses, no pulsatile mas ses. [] Skin: Warm, dry, no erythema, no rash. [] Back: No tenderness, no CVA tenderness. [] Extremities: No tenderness, no cyanosis, no clubbing, ROM intact, no edema. [] Neurologic: Alert and oriented X 3, normal motor function, normal sensory function, no focal deficits noted. [] Psychologic: Affect normal, judgement normal, mood normal. [] EKG EKG [] Radiology/Procedures Radiology/Procedures [] Heart Score C/O Chest Pain: Yes HEART Score for Chest Pain: HEART Score for Chest Pain Response (Comments) Value History Slighlty/Non-Suspicious 0 ECG Normal 0 Age > 65 2 Risk Factors 1 or 2 Risk Factors 1 Total 3 Risk Factors: Risk Factors: DM, Current or recent (<one month) smoker, HTN, HLP, family history of CAD, obesity. Risk Scores: Risk Factors: DM, Current or recent (<one month) smoker, HTN, HLP, family history of CAD, obesity. Course & Med Decision Making Course & Med Decision Making Patient is a 71-year-old female who presents with a chief complaint of sharp chest pain Vital signs not concerning. Physical exam noted above. EKG with a rate of 67, QRS of 80, QTc of 415, no STEMI. Troponin normal. Chest x-ray suggestive of pneumonia. Given COPD, gave steroids, breathing treatment and antibiotics. Heart score of 3. Low risk [place]. D-dimer negative. Dragon Disclaimer Dragon Disclaimer This electronic medical record was generated, in whole or in part, using a voice recognition dictation system. Departure Departure: Impression: Primary Impression: COPD exacerbation Additional Impression: Pneumonia Disposition: HOME / SELF CARE / HOMELESS Condition: STABLE Referrals: EDMUND RUBIO MD (PCP) Patient Instructions: Chronic Obstructive Pulmonary Disease, Pneumomediastinum Additional Instructions: Thank you for coming into the emergency department tonight and allowing us to take care of you. Please read the attached information carefully to go over things we discussed. Please take all your medicines as prescribed at home including your breathing treatments. Please take your antibiotics as prescribed and until gone. Please follow-up tomorrow with your primary care physician update on your ED visit and set up a follow-up as soon as you can. Please come back with new or concerning symptoms as discussed. You have been tested for or diagnosed with COVID-19. It is an infection caused by a new type of coronavirus. COVID-19 will cause cold-like or mild flu symptoms in most. It can cause more severe symptoms like problems breathing in some. There is no treatment for COVID-19. The body will clear the infection over time. Self-care will help to ease discomfort. Steps to Take: Self-Care Rest as needed. Healthy habits may help you feel better. Steps include: Choose healthy foods including fruits and vegetables. Drink water throughout the day. Get plenty of sleep each night. If you smoke, try to quit. It may ease breathing. Avoid alcohol. Keep Others Healthy The virus can spread to others. Droplets are released every time you sneeze or c ough. The droplets can get into the mouth, nose, or eyes of people near you and lead to infection. To lower the chances of spreading COVID-19 to others: Stay at home until your doctor has said it is safe to leave. If you tested positive this will mean staying isolated until both of the following are true: At least 7 days have passed since the start of illness. You are free of fever for at least 72 hours without the use of medicine. During this time: - Avoid public areas, events, or transportation. Do not return to work or school until your doctor has said it is safe to do so. - Call ahead if you need to go to a medical center. Let them know you may have COVID-19. It will help them guide you where to go. They may also ask you to wear a facemask when you come to the office. - If you call for emergency medical services, let them know you may have COVID- 19. While at home: - Try to avoid close contact with others. Stay about 6 feet away. - If possible, spend most of your time in a separate room from others. - Use a face mask if you will be in close contact with others such as sharing a room or vehicle. - Have someone wipe down common surfaces in the home. Use household alterations sewer every day on areas like doorknobs, counters, or sinks. - Cough or sneeze into a tissue. Throw the tissue away right after use. If a tissue is not available, cough or sneeze into your elbow. - Wash your hands often. Wash them after sneezing or coughing. Use soap and water and wash for at least 20 seconds. Alcohol based hand flask cleaner can be used if soap and water is not available. - Do not prepare food for others. Avoid sharing personal items like forks, spoons, or toothbrushes. - Avoid close contact with pets while you are sick. There is no evidence of the virus passing to pets. This is a safety step until more is known about this virus. Isolation can be frustrating. Social interaction can help. Keep in touch with friends and family through phone and tech options. You can still interact with others in your home, just keep a safe distance of about 6 feet. Follow-up: Your doctors office will check in with you to see if there are any changes in your health. You may be asked to keep track of symptoms to share with them. They will also let you know when you are clear to be in public again. Problems to Look Out For: Contact your doctor if your recovery is not going as you expect. Get emergency care if you have problems such as: - Trouble breathing - Nonstop chest pain or pressure - Changes in awareness, confusion, or problems waking - Lips or face have bluish color - Worsening of symptoms If you think you have an emergency, call for emergency medical services right away. As taken from [facility] Scripts Azithromycin (ZITHROMAX) 250 Mg Tablet 250 MG PO DAILY for PNA for 4 Days, #4 TAB 0 Refills Prov: MICHELE SÁNCHEZ MD 09/02/21 Problem Qualifiers MICHELE SÁNCHEZ MD Sep 02, 2021 19:25
[2021-09-02] MEDS ORDERED: ASPIRIN CHEWABLE 81 MG TABLET. PO ONE (20:00)
[2021-09-02 20:42] LABS: BASO % 1 % (0-3); EOS # 0.2 x10^3/uL (0.0-0.7); EOS % 2 % (0-3); HEMATOCRIT 38.9 % (36.0-47.0); HEMOGLOBIN 13.1 g/dL (12.0-15.5); LYMPH # 2.5 x10^3/uL (1.0-4.8); LYMPH % 39 % (24-48); MEAN CORPUSCULAR HEMOGLOBIN 31 pg (25-35); MEAN CORPUSCULAR HGB CONC 34 g/dL (31-37); MEAN CORPUSCULAR VOLUME 93 fL (79-100); MONO # 0.5 x10^3/uL (0.0-1.1); MONO % 8 % (0-9); NEUT # 3.2 x10^3uL (1.8-7.7); NEUT % 50 % (31-73); PLATELET COUNT 205 x10^3/uL (140-400); RED CELL DISTRIBUTION WIDTH 13.4 % (11.5-14.5); WHITE BLOOD COUNT 6.3 x10^3/uL (4.0-11.0)
[2021-09-02 20:43] LABS: CALCIUM 8.9 mg/dL (8.5-10.1); CREATININE 0.9 mg/dL (0.6-1.0); GFR 62.1; POTASSIUM 3.8 mmol/L (3.5-5.1)
[2021-09-02] MEDS ORDERED: DEXAMETHASONE 4 MG TABLET PO ONE (20:45)
[2021-09-02] MEDS ORDERED: AZITHROMYCIN 250 MG TABLET. PO ONE (20:45)
[2021-09-02] MEDS ORDERED: IPRATRPIUM/ALBUTEROL 0.5/2.5MG 3 ML NEBU. NEB ONE (20:45)
[2021-09-02 20:50] LABS: ALBUMIN 3.5 g/dL (3.4-5.0); ALBUMIN/GLOBULIN RATIO 1.4 (1.0-1.7); MAGNESIUM 2.1 mg/dL (1.8-2.4); TOTAL BILIRUBIN 0.2 mg/dL (0.2-1.0)
--- NOTE | 2021-09-02 21:30 | RAD ---
Exam: Chest one view INDICATION: Chest pain TECHNIQUE: Frontal view of the chest Comparisons: 03/19/2018 FINDINGS: The cardiomediastinal silhouette and pulmonary vessels are within normal limits. The lung and pleural spaces are clear. IMPRESSION: No acute cardiopulmonary process. Electronically signed by: Harvinder Church MD (09/02/2021 9:28 PM) ROWDY
[2021-09-02] MEDS ORDERED: AZIT250T PO (21:31)
[2021-09-02 21:35] VITALS: BP 119/62
--- NOTE | 2021-09-02 22:44 | EKG ---
[address] [address] Test Date: 2021-09-02 Test Time: 19:33:17 Pat Name: PORTIA MERINO Department: Room: Gender: F General Dentist: : 1950 Requested By: MICHELE SÁNCHEZ Order Number: [id number] Reading MD: Measurements Intervals [place] Rate: 67 P: 63 SC: 202 QRS: 21 QRSD: 80 T: 64 QT: 390 QTc: 415 Interpretive Statements SINUS RHYTHM OTHERWISE NORMAL ECG RI6.01 No previous ECG available for comparison
== END 2021-09-02 21:35 | disposition home or self-care (01) ==
LOC: ER 19:21
DX: J44.1 Chronic obstructive pulmonary disease with (acute) exacerbation (principal); J18.9 Pneumonia, unspecified organism; F41.9 Anxiety disorder, unspecified; F31.9 Bipolar disorder, unspecified; F03.90 Unspecified dementia, unspecified severity, without behavioral disturbance, psychotic disturbance, mood disturbance, and anxiety; K21.9 Gastro-esophageal reflux disease without esophagitis; E78.00 Pure hypercholesterolemia, unspecified; I10 Essential (primary) hypertension; E03.9 Hypothyroidism, unspecified; G43.909 Migraine, unspecified, not intractable, without status migrainosus; F20.9 Schizophrenia, unspecified; Z86.73 Personal history of transient ischemic attack (TIA), and cerebral infarction without residual deficits; Z87.440 Personal history of urinary (tract) infections; Z88.5 Allergy status to narcotic agent; Z88.8 Allergy status to other drugs, medicaments and biological substances
CPT/HCPCS: 36415; 71045; 80053; 83690; 83735; 84484; 85025; 85379; 93005; 94640; 99285; J8540

== ENCOUNTER → 2021-11-18 | Outpatient (CLI) | payer MEDICARE, OTHER ==
[~2021-11-18] MED LIST changes: +AZIT250T PO
--- NOTE | 2021-11-18 16:03 | RAD ---
Digital Mammogram Bilateral 2D History: Routine screening Technique: 2-D digital CC and MLO views were obtained. CAD - computer aided detection was utilize d. Comparison: Mammogram from 12/07/18. Findings: Breast Tissue Density B : There are scattered areas of fibroglandular density There are no suspicious masses, malignant appearing calcifications, or areas of architectural distort ion. There are multiple bilateral tiny oval circumscribed masses that have no increased. Impression: No evidence of malignancy. Assessment: BI-RADS Category 2: Benign findings. Recommendation: Routine screening mammograms. The patient will receive a letter with the results in the mail. Patient information will be entered i nto the mammography reminder system with a target recall date for the next mammogram. A reminder ernie er will be generated. Electronically signed by: Erlinda Garcia MD (11/18/2021 4:01 PM) [id number]
== END ==
LOC: MAMMO 13:55
PROVIDERS: ATTEND Family Medicine
DX: Z12.31 Encounter for screening mammogram for malignant neoplasm of breast (principal)
CPT/HCPCS: 77067

== ENCOUNTER 2021-11-19 15:18 | Emergency (ER) | payer MEDICARE, OTHER ==
[~2021-11-19] VITALS: Ht 160 cm; Wt 86.8 kg
[2021-11-19] MEDS ORDERED: IV NORMAL SALINE 1,000ML 1,000 ML IV ONE ×2 (16:00→22:15)
--- NOTE | 2021-11-19 16:09 | PHYS DOC ---
Past History Past Medical History: Anxiety, Bipolar, Constipation, COPD, CVA, Dementia, Depression, Diverticulitis, Gallstones, GERD, High Cholesterol, Hypertension, Hypothyroid, Migraines, Renal Disease, Schizophrenia, UTI, Other Additional Past Medical Histor: overactive bladder (NYASIA KIM APRN) Past Surgical History: Appendectomy, Cholecystectomy, Colectomy, Hysterectomy, Tonsillectomy, Other Additional Past Surgical Histo: lysis of adhesions; dental surgery--all of teeth removed (NYASIA KIM APRN) Alcohol Use: None Drug Use: None (NYASIA KIM APRN) General Adult EDM: Chief Complaint: ABDOMINAL PAIN HPI: HPI: Patient is a 71-year-old female who presents to the emergency department today for lower abdominal pain. Patient reports that the pain radiates to her low back. Started last night. It is worse with movement. Patient rates her pain 8 out of 10. She reports that she went to urgent care today for her abdominal pain and had a CT scan and was told she had a bowel obstruction and they sent her to this emergency department. Patient reports that her last bowel movement was this morning. She denies nausea, vomiting, diarrhea, fevers, blood in her stools or urinary symptoms. (NYASIA KIM APRN) Review of Systems: Review of Systems: Constitutional: See HPI GI: See HPI : See HPI Musculoskeletal: See HPI (NYASIA KIM APRN) Current Medications: Current Meds: Current Medications Medications (Trade) Dose Ordered Sig/Tracy Start Time Stop Time Status Last Admin Dose Admin Sodium Chloride 1,000 ml @ 1,000 mls/hr 1X ONCE 11/19/21 16:00 11/19/21 16:59 (NYASIA KIM APRN) Allergies: Allergies: Allergies Coded Allergies Type Severity Reaction Last Updated Verified codeine Allergy Intermediate 01/11/16 Yes metoclopramide Allergy Intermediate 08/31/16 Yes losartan Adverse Reaction Intermediate mild pancreatitis 01/07/17 Yes morphine Adverse Reaction Intermediate Palpitations 12/08/20 Yes (NYASIA KIM APRN) Physical Exam: PE: Constitutional: Well developed, well nourished, no acute distress, non-toxic appearance. [] HENT: Normocephalic, atraumatic, bilateral external ears normal, oropharynx moist, no oral exudates, nose normal. [] Eyes: PERRL, EOMI, conjunctiva normal, no discharge. [] Neck: Normal range of motion, no tenderness, supple, no stridor. [] Cardiovascular:Heart rate regular rhythm, no murmur [] Lungs & Thorax: Bilateral breath sounds clear to auscultation [] Abdomen: Bowel sounds normal, soft, suprapubic tenderness with palpation, no abdominal guarding or rigidity, no masses, no pulsatile masses. [] Skin: Warm, dry, no erythema, no rash. [] Back: No tenderness, no CVA tenderness. [] Extremities: No tenderness, no cyanosis, no clubbing, ROM intact, no edema. [] Neurologic: Alert and oriented X 3, normal motor function, normal sensory function, no focal deficits noted. [] Psychologic: Affect normal, judgement normal, mood normal. [] (NYASIA KIM APRN) Current Patient Data: Vital Signs: Vital Signs Date Time Temp Pulse Resp B/P (MAP) Pulse Ox O2 Delivery O2 Flow Rate FiO2 11/19/21 15:33 98.0 16 138/99 (112) Room Air (NYASIA KIM APRN) EKG: EKG: [] (NYASIA KIM APRN) Radiology/Procedures: Radiology/Procedures: [] (NYASIA KIM APRN) Heart Score: C/O Chest Pain: N/A Risk Factors: Risk Factors: DM, Current or recent (<one month) smoker, HTN, HLP, family history of CAD, obesity. Risk Scores: Score 0 - 3: 2.5% MACE over next 6 weeks - Discharge Home Score 4 - 6: 20.3% MACE over next 6 weeks - Admit for Clinical Observation Score 7 - 10: 72.7% MACE over next 6 weeks - Early Invasive Strategies (NYASIA KIM MEDICAL ACCOUNTING CLERK) Course & Med Decision Making: Course & Med Decision Making Pertinent Labs and Imaging studies reviewed. (See chart for details) [] Patient resents to the emergency department for lower abdominal pain. Patient went to the urgent care and had a CT scan performed which showed mild ileus versus partial bowel obstruction and was sent to the emergency department. Work-up in the ER consisted of blood work including lipase, urinalysis. Patient treated with IV fluids and pain medication. I discussed patient's case with Dr. Appiah and he agreed to consult on patient. Patient will be needed to transfer to [facility] where there is surgical coverage. I discussed patient's case with Dr. Culp who agreed to admit the patient under his services for partial bowel obstruction. Patient is not having any vomiting therefore a NG tube was not placed. I have discussed with the patient all findings and diagnostic testing, clinical impression and plan. Patient voiced understanding and agreement. No further questions at this time. Patient to be admitted. (NYASIA KIM APRN) Dragon Disclaimer: Dragon Disclaimer: This electronic medical record was generated, in whole or in part, using a voice recognition dictation system. (NYASIA KIM APRN) Attending Co-Sign The patient was seen and interviewed as well as examined at the bedside. The chart was reviewed. The case was discussed. Agree with the plan of care. (ROS REY DO) Departure Departure: Impression: Primary Impression: Partial bowel obstruction Qualified Codes: K56.600 - Partial intestinal obstruction, unspecified as to cause Disposition: 02 SHORT TERM HOSPITAL Condition: GOOD Referrals: EDMUND RUBIO MD (PCP) NYASIA KIM APRN November 19, 2021 16:09 ROS REY DO November 20, 2021 18:12
[2021-11-19 17:17] LABS: CLARITY,URINE CLEAR; COLOR,URINE YELLOW
[2021-11-19 17:18] LABS: BACTERIA,URINE FEW /HPF (0-FEW); GLUCOSE,URINE NEG (NEG); NITRITE,URINE NEG (NEG); RBC,URINE 0 /HPF (0-2); SQUAMOUS EPITHELIAL CELL,UR FEW /LPF; UROBILINOGEN,URINE 0.2 mg/dL (0.2 mg/dL)
[2021-11-19 17:22] LABS: BASO # 0.1 x10^3/uL (0.0-0.2); BASO % 1 % (0-3); EOS # 0.1 x10^3/uL (0.0-0.7); EOS % 2 % (0-3); HEMATOCRIT 43.3 % (36.0-47.0); HEMOGLOBIN 14.3 g/dL (12.0-15.5); LYMPH # 2.4 x10^3/uL (1.0-4.8); LYMPH % 33 % (24-48); MEAN CORPUSCULAR HEMOGLOBIN 31 pg (25-35); MEAN CORPUSCULAR HGB CONC 33 g/dL (31-37); MEAN CORPUSCULAR VOLUME 93 fL (79-100); MONO # 0.5 x10^3/uL (0.0-1.1); MONO % 7 % (0-9); NEUT # 4.2 x10^3uL (1.8-7.7); NEUT % 57 % (31-73); PLATELET COUNT 173 x10^3/uL (140-400); RED BLOOD COUNT 4.67 x10^6/uL (3.50-5.40); RED CELL DISTRIBUTION WIDTH 13.7 % (11.5-14.5); WHITE BLOOD COUNT 7.3 x10^3/uL (4.0-11.0)
[2021-11-19 17:39] LABS: CALCIUM 9.8 mg/dL (8.5-10.1); CREATININE 1.1 mg/dL (0.6-1.0); GFR 49.2
[2021-11-19 17:40] LABS: ALBUMIN 3.9 g/dL (3.4-5.0); ALBUMIN/GLOBULIN RATIO 1.2 (1.0-1.7); TOTAL BILIRUBIN 0.5 mg/dL (0.2-1.0); TOTAL PROTEIN 7.1 g/dL (6.4-8.2)
[2021-11-19 17:49] VITALS: BP 151/58
== END 2021-11-19 22:15 | disposition short-term general hospital (02) ==
LOC: ER 15:18
DX: K56.600 Partial intestinal obstruction, unspecified as to cause (principal); F41.9 Anxiety disorder, unspecified; F31.9 Bipolar disorder, unspecified; J44.9 Chronic obstructive pulmonary disease, unspecified; F03.90 Unspecified dementia, unspecified severity, without behavioral disturbance, psychotic disturbance, mood disturbance, and anxiety; K21.9 Gastro-esophageal reflux disease without esophagitis; E78.00 Pure hypercholesterolemia, unspecified; I10 Essential (primary) hypertension; E03.9 Hypothyroidism, unspecified; G43.909 Migraine, unspecified, not intractable, without status migrainosus; F20.9 Schizophrenia, unspecified; Z86.73 Personal history of transient ischemic attack (TIA), and cerebral infarction without residual deficits; Z87.440 Personal history of urinary (tract) infections; Z90.89 Acquired absence of other organs; Z90.49 Acquired absence of other specified parts of digestive tract; Z90.710 Acquired absence of both cervix and uterus; Z88.5 Allergy status to narcotic agent; Z88.8 Allergy status to other drugs, medicaments and biological substances
CPT/HCPCS: 36415; 80053; 81001; 83690; 85025; 87077; 87086; 87186; 96361; 96374; 99285; J3010; J7030

== ENCOUNTER → 2021-11-19 | Outpatient (CLI) | payer MEDICARE, OTHER ==
--- NOTE | 2021-11-19 14:47 | RAD ---
EXAMINATION: CT ABDOMEN+PELVIS WO CLINICAL HISTORY: LT FLANK PAIN W/ HEMATURIA. TECHNIQUE: Imaging of the abdomen and pelvis was performed without intravenous contrast using standar d technique, scanning from just above the dome of the diaphragm to the symphysis pubis. Unenhanced i maging is limited for the evaluation of some intra-abdominal and pelvic pathology. CT Dose Reduction Employed: One or more of the following individualized dose reduction techniques wer e utilized for this examination: 1. Automated exposure control 2. Adjustment of the mA and/or kV ac cording to patient size 3. Use of iterative reconstruction technique. COMPARISON: 12/08/2020 FINDINGS: Visualized heart and lungs unremarkable. Biliary ductal prominence status post cholecystectomy, similar to prior study. Partial fatty atrophy of the pancreas. Liver, spleen, and adrenal glands unremarkable. Small cortical defect lower pole left kidney, possibly related to remote scarring. Right kidney unrem arkable. No urolithiasis or evidence of obstructive uropathy. Minimally filled urinary bladder. Hysterectomy. Postoperative changes related to partial colectomy with anastomosis in the left upper quadrant. Mild gaseous distention of the colon proximal to the anastomosis and in the distal ileum, suggestive of il eus versus partial obstruction. Stool-filled descending and sigmoid colon. Moderate arterial atherosclerotic calcification without aneurysm. Multilevel thoracolumbar degenerative changes. IMPRESSION: Findings suggestive of mild ileus versus partial bowel obstruction at the colonic anastomosis. No urolithiasis or evidence of obstructive uropathy. Electronically signed by: Shay Marrufo DO (11/19/2021 2:44 PM) [facility] [place]
== END ==
LOC: RAD 14:04
PROVIDERS: ATTEND Nurse Practitioner Family
DX: M47.815 Spondylosis without myelopathy or radiculopathy, thoracolumbar region (principal); I25.10 Atherosclerotic heart disease of native coronary artery without angina pectoris; Z90.79 Acquired absence of other genital organ(s); Z68.34 Body mass index [BMI] 34.0-34.9, adult
CPT/HCPCS: 74176